=== PATIENT | male | born 1950 | race Caucasian/White ===

== ENCOUNTER → 2018-08-03 09:46 | Outpatient (POV) | payer OTHER, SELFPAY | PROVIDERS: Visit Provider Dermatology | DX: Z00.00 Encounter for general adult medical examination without abnormal findings (principal) ==

== ENCOUNTER → 2019-07-26 13:13 | Outpatient (POV) | payer OTHER, SELFPAY | PROVIDERS: Visit Provider Dermatology | DX: Z00.00 Encounter for general adult medical examination without abnormal findings (principal) ==

== ENCOUNTER → 2019-11-08 12:54 | Outpatient (POV) | payer OTHER, SELFPAY | PROVIDERS: PCP Dermatology; Visit Provider Dermatology | DX: Z00.00 Encounter for general adult medical examination without abnormal findings (principal) ==

== ENCOUNTER → 2020-02-21 08:58 | Outpatient (POV) | payer OTHER, SELFPAY | PROVIDERS: PCP Internal Medicine; Visit Provider Physician Assistant | DX: Z00.00 Encounter for general adult medical examination without abnormal findings (principal) ==

== ENCOUNTER → 2020-05-22 09:03 | Outpatient (POV) | payer OTHER, SELFPAY | PROVIDERS: Visit Provider Dermatology | DX: Z00.00 Encounter for general adult medical examination without abnormal findings (principal) ==

== ENCOUNTER → 2020-08-14 09:01 | Outpatient (POV) | payer OTHER, SELFPAY | PROVIDERS: Visit Provider Dermatology | DX: Z00.00 Encounter for general adult medical examination without abnormal findings (principal) ==

== ENCOUNTER → 2020-11-27 08:48 | Outpatient (POV) | payer OTHER, SELFPAY | PROVIDERS: Visit Provider Dermatology | DX: Z00.00 Encounter for general adult medical examination without abnormal findings (principal) ==

== ENCOUNTER → 2020-12-25 14:13 | Outpatient (POV) | payer OTHER, SELFPAY | PROVIDERS: Visit Provider Dermatology | DX: Z00.00 Encounter for general adult medical examination without abnormal findings (principal) ==

== ENCOUNTER → 2021-04-02 11:27 | Outpatient (POV) | payer OTHER, SELFPAY | PROVIDERS: Visit Provider Dermatology | DX: Z00.00 Encounter for general adult medical examination without abnormal findings (principal) ==

== ENCOUNTER → 2021-09-17 11:25 | Outpatient (POV) | payer OTHER, SELFPAY | PROVIDERS: Visit Provider Dermatology | DX: Z00.00 Encounter for general adult medical examination without abnormal findings (principal) ==

== ENCOUNTER → 2022-04-01 09:09 | Outpatient (POV) | payer OTHER, SELFPAY | PROVIDERS: Visit Provider Dermatology | DX: Z00.00 Encounter for general adult medical examination without abnormal findings (principal) ==

== ENCOUNTER → 2022-09-09 08:41 | Outpatient (POV) | payer OTHER, SELFPAY | PROVIDERS: Visit Provider Dermatology | DX: Z00.00 Encounter for general adult medical examination without abnormal findings (principal) ==

== ENCOUNTER → 2023-06-23 13:58 | Outpatient (POV) | payer OTHER, SELFPAY | PROVIDERS: Visit Provider Dermatology | DX: Z00.00 Encounter for general adult medical examination without abnormal findings (principal) ==

== ENCOUNTER 2024-07-26 09:50 | Outpatient (POV) | payer OTHER, SELFPAY ==
--- OUTSIDE RECORDS SUMMARY | 2024-07-27 06:49 | XMS_ITS | Clinical Summary ---
Author Organization [facility] Address [address] [place] [address] Care Team Providers Care Char Filter Operator Helper Name Role Phone Manjit Gorman MD Primary Care Provider [phone] Allergies No known active allergies Medications multivitamin with minerals tablet tablet Take 1 tablet by mouth Daily. Active tadalafil (CIALIS) 5 MG tablet TAKE 1 OR 2 TABLETS BY MOUTH DAILY NEEDED FOR ED 04/15/2022 Active BLACK ELDERBERRY PO Take 1 tablet by mouth Every Night. Active amLODIPine-fannie zepril (LOTREL 2.5-10) 2.5-10 MG per capsule Take 1 capsule by mouth Daily. 90 capsule 2 04/06/2024 Active Active Problems Problem Noted Date Diagnosed Date Encounter for general adult medical examination with abnormal findings 02/26/2024 Assessment & Plan (02/26/2024 11:13 AM EDT): Healthy 73-year-old male presenting for yearly complete physical and Medicare wellness visit, health issues being addressed as detailed below, health maintenance includes colonoscopy up-to-date from 03/2017 with 10-year follow-up recommended, vaccinations recommend update including COVID-19 which she will obtain through pharmacy and Tdap which she declines given lack of Medicare coverage, lab testing recently obtained through [facility] including a TSH CBC CMP all of which were unremarkable, they recently obtained through urology and satisfactory, will supplement with lipid profile hemoglobin A1c vitamin D urinalysis and urine microalbumin, EKG stable today. Dyslipidemia 02/26/2024 Assessment & Plan (02/26/2024 11:10 AM EDT): Update lipid profile. Currently not on any cholesterol medication. Primary osteoarthritis involving multiple joints 02/26/2024 Assessment & Plan (02/26/2024 11:16 AM EDT): Spine from cervical through lumbar region, asymptomatic, recent neck CT monitoring his oropharyngeal cancer did not reveal several facet joints which have fused with extensive degenerative changes, consideration of physical therapy though in truth would not likely be beneficial. He will work on home stretching exercises himself. Subclinical hypothyroidism 02/26/2024 Overview (02/26/2024): TSH mildly elevated at 4.4 through [facility] in 02/2024 Assessment & Plan (02/26/2024 11:12 AM EDT): TSH noted to be mildly elevated at 4.4 obtained through [facility] earlier this month in 02/2024. Getting regular TSH monitoring, potentially due to history of radiation therapy from his oropharyngeal cancer. Monitor closely through [facility]. Not being repeated today given recent testing as noted. Meralgia paresthetica of right side 02/26/2024 Assessment & Plan (02/26/2024 11:17 AM EDT): Noted on his right thigh. Discussed pathophysiology of this disorder. Given does not cause pain or functional limitation, observation is recommended. Pain of left thigh 02/26/2024 Assessment & Plan (02/26/2024 11:17 AM EDT): Met nonspecific pain in the left lateral thigh present by history for several months more with initial weightbearing, not reproducible today in the office either by palpation or range of motion testing of his leg and having a negative straight leg raise testing. Uncertain specific etiology, possibly muscular strain versus radiculopathy from the lower spine. Recommended observation for now unless becomes more problematic. Tick bite of lower back 02/26/2024 Assessment & Plan (02/26/2024 11:20 AM EDT): History of a tick bite last week, tick removed with tweezers, duration of attachment uncertain, asymptomatic other than the small scabbing lesion. Recommend simply observation at this time monitoring for any development of typical erythema margin on rash, tenderness, fever spikes arthralgias etc. Paresthesia and pain of right extremity 08/10/20 Vitamin D deficiency 02/20/2023 Mixed conductive and sensori neural hearing loss of both ears 12/25/2022 Assessment & Plan (02/26/2024 11:10 AM EDT): Utilizing hearing aids. Has ongoing ENT evaluation more targeting his history of oropharyngeal/base of tongue cancer. 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 Gets regular follow-up with oncology, radiation therapy and ENT currently every [address] scanning most recently satisfactory earlier this month. No major side effects noted at this time. 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 Observation recommended. 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 Continue current regimen with monitoring. Patient did have a recent CMP obtained through [facility] that was unremarkable thus will not be repeated today. Lipoma 04/15/2022 Overview (04/15/2022): BENIGN;RIGHT ANTERIOR SUPERIOR ILIAC SPINE Macular pucker 04/15/2022 Male erectile dysfunction, unspecified 2 Nodular prostate without lower urinary tract sym ptoms 04/15/2022 Onychomycosis 04/15/2022 Other decreased white blood cell count 2 Other idiopathic scoliosis, thoracic region 05/2022 Prediabetes 04/15/2022 Overview (02/26/2024): Most recent hemoglobin A1c normal at 5.4% in 02/2023 Assessment & Plan (02/26/2024 11:10 AM EDT): Most recent hemoglobin A1c normal at 5.4% in 02/2023. Update testing. Pursue healthy lifestyle. Kyphoscoliosis 04/15/2022 Assessment & Plan (02/26/2024 11:16 AM EDT): Clinically stable for many years, asymptomatic, did suggest potential of physical therapy which is not likely to alter his course. Observation recommended. Skin cancer 04/15/2022 Prostate cancer Cancer Staging:Clinical stage from 07/01/2021:Stage IIB(cT2a, cN0, cM0, PSA: 4, Grade Group: 2) - Signed by Jann Callejas MD on 09/18/2021 Assessment & Plan (02/26/2024 11:14 AM EDT): History of prostate cancer status post CyberKnife therapy in [address] Mina transitioning to PA in same office given Dr. Mina reportedly leaving for different location. Most recent PSA reported by patient to be decreased to 0.8 getting every 4 month evaluations. 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 Toure Other male erectile dysfunction 04/15/2022 02/20/2023 Immunizations Name Administration Dates Next Due Arexvy (RSV, Adults 60+ yrs) 07/17/2023 COVID-19 (MODERNA) Monovalen t Original Booster 12/09/2021 COVID-19 (MODERNA) ORIGINAL MONOVALENT PED 12/09/2021 COVID-19 (PFIZER) Purple Cap Monovalent 06/06/2021,11/03/2020,10/13/2020 COVID-19 (UNSPECIFIED) 12/09/2021 Fluzone >6mos 07/02/2015,06/15/2012 Fluzone High-Dose 65+YRS 07/26/2019,05/04/2018,1 09/07/2016 Fluzone High-Dose 65+yrs 06/10/2023,06/07,06/06/2021,05/18,07/26/2019,05/04/2018,07/08/2017 Influenza Seasonal Injectable 07/14/2011 Pneumococcal Conjugate 13-Va lent (PCV13) 01/27/2019 Pneumococcal Polysaccharide (PPSV23) 01/31/2020 Shingrix 11/09/2023,08/04/2023 Family History Medical History Relation Name Comments No Known Problems Brother No Known Problems Daughter 1 No Known Problems Daughter 2 Diabetes Father Heart disease Father PACEMAKER Sleep apnea Father Dementia Mother Heart disease Mother PACEMAKER Hip fracture Mother No Known Problems Son Relation Name Status Comments Brother Daughter 1 Daughter 2 Father (Age 95) Mother (Age 85) Son Social History Tobacco Use Types Packs/Day Years Used Date Smoking Tobacco: Never Smokeless Tobacco: Never Tobacco Cessation:Counseling Given: Not Answered Alcohol Use Standard Drinks/Week Comments Yes 1 (1 standard drink = 0.6 oz pure alcohol) 7-10 BEERS OVER THE COURSE OF A WEEK PHQ-2 Answer Date Recorded Retired PHQ-9: Brief Depression Severity Measure Score 0 02/20/2023 Abuse Screen Answer Date Recorded Unsafe at Home or Work/School Not on file Feels Threatened by Someone? Not on file 05/2023 Does Anyone Keep You from Co ntacting Others or Doint Things Outside the Home? Not on file 06/15/2023 Physical Sign of Abuse Present Not on file 1 Housing Stability Answer Date Recorded Current Living Arrangements Not on file 05/2023 Potentially Unsafe Housing Conditions Not on janet e 06/15/2023 Family and Community Support Answer Refugio e Recorded Help with Day-to-Day Activities Not on file 06/15/2023 Lonely or Isolated Not on file 06/15/2023 Employment Answer Date Recorded Do you want help finding or keeping work or a amanda b? Not on file 06/15/2023 Disabilities Answer Date Recorded Concentrating, Remembering, or Making Decisions Difficulty Not on file 06/15/2023 Doing Errands Independently Difficulty Not on fi le 06/15/2023 Education Answer Date Recorded Help with school or training? Not on file Preferred Language Not on file 06/15/2023 PHQ-2 Answer Date Recorded Retired PHQ-9: Brief Depression Severity Measure Score 0 02/26/2024 Sex and Gender Information Value Date Recorded Sex Assigned at Not on file Legal Sex Male 4:13 PM EST Gender Identity Not on file Sexual Orientation Not on file Last Filed Vital Signs Vital Sign Reading Time Taken Comments Blood Pressure 124/76 02/26/2024 8:57 AM EDT Pulse 84 02/26/2024 8:57 AM EDT Temperature 36.7 ??C (98.1 ??F) 02/26/2024 8:57 AM ED T Respiratory Rate 18 08/10/2023 8:42 AM EST Oxygen Saturation 98% 02/26/2024 8:57 AM EDT Inhaled Oxygen Concentration - - Weight 79.2 kg (174 lb 9.6 oz) 02/26/2024 8:57 A M EDT Height 182.9 cm (6') 02/26/2024 8:57 AM EDT Body Mass Index 23.68 02/26/2024 8:57 AM EDT Plan of Treatment Upcoming Encounters Date Type Department Care Team (Late st Contact Info) Description 08/22/2024 8:30 AM EST Office Visit [facility] [address] [place] [address] [place] [phone] Manjit Gorman MD [address] [place] [address] [place] [phone] 02/27/2025 9:00 AM EDT Office Visit [address] [place] [phone] Manjit Gorman MD [address] [place] [address] [place] [phone] Health Maintenance Due Date Last Done Comments COLOGUARD 1950 COLON CANCER SCREENING 5 YEA R SIGMOIDOSCOPY [address] COLONOGRAPHY 1950 FECAL OCCULT BLOOD TEST 1950 FIT Testing (1 year) 1950 TDAP/TD VACCINES (1 - Tdap) 1969 INFLUENZA VACCINE 04/07/2024 06/10/2023, , 06/06/2021, Additional history exists COVID-19 Vaccine (2023-10 5 season) 2024 06/22/2023, 06/18/2022, 12/09/2021, Additional history exists ANNUAL WELLNESS VISIT 02/25/2025 02/26/2024 , 02/26/2024, 02/20/2023, Additional history exists COLONOSCOPY 03/20/2027 03/20/2017, 03/20/2017 COLORECTAL CANCER SCREENING 03/20/2027 Pneumococcal Vaccine 65+ Completed 01/31/2020, 01/06 HEPATITIS C SCREENING Completed 02/20/2023, 023 ZOSTER VACCINE Completed 11/09/2023, 08/04/2023 Procedures Procedure Name Priority Date/Time Associated Diagnosis Comments HEPATITIS C ANTIBODY Routine 02/20/2023 10:01 AM EDT Encounter for general adult medical examination with abnormal findings Need for hepatitis C screening test COLONOSCOPY Routine 03/20/2017 from Last 3 Months or Most Recently Relevant to Health Maintenance Results * Hepatitis C Antibody (02/20/2023 10:01 AM EDT) Hep C Virus Ab Non Reactive Non Reactive [facility] Comment: HCV antibody alone does not differentiate between previously resolved infection and active infection. Equivocal and Reactive HCV antibody results should be followed up with an HCV RNA test to support the diagnosis of active HCV infection. Blood Structure of right upper limb / Unknown 02/20/2023 10:01 AM EDT 02/21/2023 Comment:Blood Release to [facility] Narrative [facility] - 02/21/2023 11:07 AM EDT Performed at: ??01 - [facility] [address] [place] [address] ??[id number] Agronomy Technician: Toby Rosario PhD, Phone: ??[phone] Manjit Gorman MD LAB BLOOD ORDERABLES Final Res ult [facility] [address] [place] [address], [facility] [address] [place] [address], * Colonoscopy (03/20/2017) [facility] SURGICAL HISTORY PROCEDURES F inal Result from Last 3 Months or Most Recently Relevant to Health Maintenance Insurance [employer] Care Teams Char Filter Operator Helper Relationship Specialty Start Date End Date Manjit Gorman MD [address] [address] PCP - General Internal Medicine 09/18/21
--- OUTSIDE RECORDS SUMMARY | 2024-07-27 06:49 | XMS_ITS ---
Author Organization [facility] Address [address] [place] [address] Care Team Providers Care Solar Fabrication Technician Name Role Phone Manjit Gorman MD Primary Care Provider [phone] Active Problems Problem Noted Date Diagnosed Date [...] Paresthesia and pain of right extremity 08/10/20 23 Vitamin D deficiency 02/20/2023 Mixed conductive and [...] to 0.8 getting every 4 month evaluations. Current Oncology Plans No current plan information found. Past Plans No past plan information found. Radiation Treatments * No radiation treatments are documented for this patient in [facility]. Treatments may have been administered in another system. Treatment Summaries Prostate cancer* Images from the original note were not included. Prostate Cancer Survivorship Plan General Information Patient name Erick Sierra Date of 1950 Phone Email [email or web address] Cancer Treatment Team Patient Care Team: Barry Mina MD as Referring Physician (Urology) Jann Callejas MD as Consulting Physician (Radiation Oncology) Provider Phone numbers Care Team Provider: Barry Mina MD, ([phone]) Care Team Provider: Jann Callejas MD, ([phone]) Care Team Provider: Perry Murillo MD, ([phone]) Care Team Provider: Yari Campbell MD, ([phone]) Post Treatment Care Team Primary Care Physician Manjit Gorman MD [phone] [place] [address] [place] [address] Background Information Medical history Past Medical History: Hypertension Prostate cancer (HCC) Skin cancer Surgical history Past Surgical History: COLONOSCOPY good x 10years PROSTATE BIOPSY PROSTATE FIDUCIAL MARKER PLACEMENT TONSILLECTOMY VASECTOMY Tobacco use Social History Tobacco Use Smoking Status Never Smoker Smokeless Tobacco Never Used Family oncology history Cancer-related family history is not on file. Oncology Information Oncology/Hematology History Prostate cancer (HCC) 07/01/2021 Cancer Staged Staging form: Prostate, AJCC 8th Edition - Clinical stage from 07/01/2021: Stage IIB (cT2a, cN0, cM0, PSA: 4, Grade Group: 2) - Signed by Jann Callejas MD on 09/18/2021 09/18/2021 Initial Diagnosis Prostate cancer (HCC) 12/11/2021 - 12/17/2021 Radiation Radiation OncologyTreatment Course: Erick Sierra received 3500 cGy in 5 fractions to prostate andseminal vesicles via Stereotactic Radiation Therapy - SRT. Complications during Therapy: No concerns stated Modification to Treatment Plan: No Modifications Lifetime Dose Tracking No doses have been documented on this patient for the following tracked chemicals: Doxorubicin, Epirubicin, Idarubicin, Daunorubicin, Mitoxantrone, Bleomycin, Mitomycin, Doxorubicin Liposomal [Could not find a treatment plan. This SmartLink may be configured incorrectly. Contact a ict systems test engineer for help.] Persistent Treatment-Associated Adverse Effects at Completion of Therapy It is important to recognize that not every person experiences the following adverse events after treatment. You may not have any of these issues, a few or many adverse effects. Experiences are highly variable. Please discuss any adverse effects of cancer treatment with your cancer care team. After Surgical Therapy No Surgery Performed After Chemotherapy N/A After Radiation Therapy After External Beam Radiation Therapy or Cyberknife Radiation therapy can cause early and late side effects. Early side effects are those that happen during or shortly after treatment and are usually gone within a few weeks after treatment ends. Late side effects may take months or years to develop. The most common early side effects are fatigue (feeling tired) and skin changes. Other early side effects are usually related to the area being treated. If you continue to have some skin problems after treatment ends, be gentle with the skin in the treatment area until all signs of irritation are gone and continue to care for your skin as your doctors and nurses have advised. If you continue to have fatigue, you may need to plan your activities to maximize energy, get extra rest while your bodyis still recovering and follow other instructions from your doctors and nurses such as exercise andactivity. long-term effects of radiation therapy vary greatly depending on the areas included in the field ofradiation and the radiation techniques that were used. Normal tissue in the body that is close to the prostate such as the bowel, rectum and bladder may be exposed to some radiation during treatment. Exposure of the bowel to radiation may result in bowel changes such as diarrhea or frequent loose stools. Ulceration and bleeding may also occur. Any bright red blood or black, tarry stools or abnormal passage of stool should be reported to your doctor. Stay hydrated by drinking water and fluids with electrolytes. Chronic diarrhea may put you at risk for weight loss and malnutrition. Talk to yourdoctor or nurse - there may medications and special instructions that can help. There are also other specialists like gastroenterologists and dietitians who can help. If the lymph nodes were in the radiation field, there may be an increased risk of developing lymphedema. Lymphedema is a condition in which fluid collects and may cause swelling. Exposure of the bladder to radiation may result in bladder scarring and may increase the risk of urinary tract infections. Blood in the urine or signs of urinary tract infections such as pain in the bladder, groin, lower abdomen or lower back, frequent urination, bladder spasm, cloudy, dark and/or foul-smelling urine, frequent urge to urinate and fever should be reported to your doctor. Radiation to the pelvis may cause erectile dysfunction (inability to get and keep an erection firm enough for sexual penetration). If there was erectile dysfunction before treatment and if there are other risk factors for erectile dysfunction (such as advanced age), the risk may be higher. Each man???s situation is different. Medications to treat erectile dysfunction may be given. There are also other treatments and devices that can help. Having trouble with erections is a very personal concern. It???s important to communicate with your partner and to talk with your doctor or nurse about it. Treatments and referrals to other specialists may help. In rare cases, radiation therapy can increase the risk of a second cancer. Other N/A Care of your Venous Access Device No Venous Access Device currently in place General After Cancer Treatment It is not uncommon for cancer to impact other areas of your life such as relationships, work and mental health. If you develop financial concerns, resources are sometimes available to assist in theseareas. Depression and anxiety can present either during or after cancer diagnosis and treatment. Itis important to discuss with your physician any of these concerns so these resources can be made available to you. General Cancer Support & Resources [facility] [address], [address] [place] [address] Med Onc: Plant Pathologist Onc: [employer] Identity Management Consultant: Mirna Sharpe - Psychiatric Nurse Practitioner: Perlita Cabrera APRN - Kick It! (A free smoking cessation program) Financial Counselor and Contact Information: [facility] Financial Counseling [phone] Staff Software Engineer Contact Information: Andreina Umanzor - Local Cancer Support Group and Contact Information: Estefania Coffman: This support group is open to anyone that has been diagnosed with cancer of any type. Meets at 6:30pm on the last Thursday of each month. Location: [facility]; [address] [place] [address]. For more information call Laura Marie @ . Prostate Cancer Support & Resources Local Resources Us [facility] Prostate Support Group: The mission of TOO is to provide hope and improve the lives of of those affected by prostate cancer through support, education, and advocacy/ awareness. The group meets the of each month at 6:30 p.m. [address] [facility] [place], [place] [id number] Surveillance How Frequent? Medical Oncology visits 1 month, 6 months later, 1 year later (Dr. Callejas) Lab tests PSA 3 months after CyberKnife completion, then every 6 months until PSA jolene (PSA <0.5), then every 6-12 months (Dr. Mina) Imaging exams As clinically indicated Immunizations Influenza Herpes Zoster Pneumococcal Yearly Once As appropriate Tobacco Cessation The patient is not currently a tobacco user. Counseling given: Not Answered Monitor for ongoing toxicities: None Specified Call your doctor if you have any of these signs or symptoms New or worsening symptoms. Pain that is new, unrelieved or bothersome. Difficulty with your emotions, anxiety, and/or depression. Physical problems that affect your abilities in your daily life or those that are bothersome (for example, continued fatigue, trouble sleeping, sexual problems, or edema). Referrals provided There are no referral needs at this time. Self Care Plan Self Care Plan: What You Can Do to Stay Healthy after Treatment for Cancer Cancer treatments may increase your chance of developing other health problems years after you havecompleted treatment. The purpose of this self care plan is to inform you about what steps you can take to maintain good health after cancer treatment. Keep in mind that every person treated for cancer is different and that these recommendations are not intended to be a substitute for the advice of a doctor or other health childcare provider. Please use these recommendations to talk with your health care provider about an appropriate follow up care plan for you. Surveillance for Your Cancer Recommendation Frequency Comments Cancer surveillance visit with medical provider that is focused on detecting signs of recurrence ofyour cancer. For additional information, visit www.livestrong.org or www.cancer.net/patient/Survivorship Frequency depends on type and stage of cancer you had. (If you had a higher risk cancer, you may be seen more often). Your doctor has provided you with a personalized cancer treatment summary and survivorship care plan. If you need another copy, ask your doctor. General Cancer Screening for Men Cancer screening tests are designed to find cancer or pre-cancerous areas before there are any symptoms and, generally, when treatments are most successful. Various organizations have developed guidelines for cancer screening for men. While these guidelines vary slightly between different organizations, they cover the same basic screening tests for prostate and colorectal cancers. In addition, during routine health examinations (at any age) your health care provider may also evaluate for cancers of the skin, mouth and thyroid. Not all screening tests are right for everyone. Your personal and family cancer history, and/or the presence of a known genetic predisposition, can affect which tests are right for you, and at what age you begin them. Therefore, you should discuss these with your health care provider. Your care plan will also include a section on follow up care foryour type of cancer, and these recommendations override the general screening recommendations for that particular type of cancer in the general population. The [place] [employer] (ACS) recommends these screening guidelines for men: Recommendation Frequency Comments Colon and Rectal Cancer Screening For more information see the ACS document Colorectal Cancer: Early Detection. www.cancer.org/ssLINK/cilkarmbpa-uhtnfu-rqhvh-detection-hugo Options for colon cancer screening can be divided into those that screen for both cancer and polyps, and those that just screen for cancer.Screening should begin at age 45 (unless you are considered high risk (see comments), using one of the following testing schedules: Tests that find polyps and cancer (Preferred over those that find cancer alone. If any of these tests are positive, a colonoscopy should be done.) Flexible sigmoidoscopy every five years, or Colonoscopy every 10 years, or Double-contrast barium enema every five years, or CT colonography (virtual colonoscopy) every five years Tests that primarily test for cancer Yearly fecal occult blood test (FOBT)*, or Yearly fecal immunochemical test (FIT) *, or Stool DNA test (sDNA), interval uncertain* * The multiple stool take-home test should be used. One test done by the doctor in the office is not adequate. A colonoscopy should be done if the test is positive. Talk with your doctor about your medical history, and what colorectal cancer screening test and schedule is best for you. Individuals at higher risk of colon cancer should have screening earlier and potentially more frequently. Those at higher risk of colon and rectal cancer: Individuals with a family history of colon or rectal cancer in a relative who was diagnosed before the age of 60 Individuals with a history of polyps Individuals with inflammatory bowel disease (Crohn's disease or ulcerative colitis) Individuals with a genetic predisposition to colon or rectal cancer, such as hereditary non-polyposis colon cancer (HNPCC) syndrome or familial adenomatous polyposis (FAP) syndrome Prostate Cancer Screening For more information, see the ACS Document Prostate Cancer Prevention and Early Detection: http://www.cancer.org/cancer/prostatecancer/moreinformation/prostatecancerearlyd etection/index Starting at age 50 (unless you are considered high risk ), men should talk to their doctor about the pros and cons of prostate cancer testing, and then decide if they want to be tested. Tests that can be used to detect for prostate cancer include Prostate-specific antigen (PSA) or digital rectal exam (IZA). ndividuals are considered higher risk if they are and/or have a family history of prostate cancer. Those who are considered high risk should have this talk at age 40 or 45. Testicular Screening For more information, see the ACS Document Testicular Cancer Detection: http://www.cancer.org/cancer/testicularcancer/detailedguide/lbqhpmnowh-nsmgdf-di tection Men of any age can develop testicular cancer; however, about half of all cases occur in men between the ages of20 and 34. A testicular self- exam is recommended monthly after a man has gone through puberty. In doing so, akhil should look and feel for any hard lumps, rounded bumps, or any change in the size, shape, or consistency of his testicles. If something appears abnormal, see a health care provider for further evaluation. Sun Exposure and Skin Cancer Risk Skin cancer is the most commonly diagnosed type of cancer, and rates are on the rise. However, thisis one cancer that in most cases can be prevented or detected early. While you may hear that you need the sun to make vitamin D, in reality you only need a few minutes a day to do this. Exposure to ultraviolet (UV) rays, either by natural sunlight or tanning beds, can lead to skin cancer. In additio n, UV rays lead to other forms of skin damage, including wrinkles, loss of skin elasticity, dark patches (sometimes called age spots or liver spots), and pre- cancerous skin changes (such as dry, scaly, rough patches). Although dark- skinned people are less likely to develop skin cancer, they can anddo develop skin cancers, most often in areas that are not exposed to sun (on the soles of the feet,under nails, and genitals). You can do a lot to protect yourself from damaging UV rays and to detect skin cancer early. Start by practicing sun safety, including using a broad spectrum sunscreen (which protects against UVA and UVB rays) with an SPF of at least 30 every day, avoiding peak sun times (10 a.m. to 4 p.m., when therays are strongest) and wearing protective clothing such as hats, sunglasses and long- sleeved shirts. Examine your skin regularly so you become familiar with any moles or birthmarks. If a mole has changed in any way, you should have a health care provider examine the area. This includes a change in size, shape or color; the development of scaliness, bleeding, oozing, itchiness or pain; or the development of a sore that will not heal. If you have a lot of moles, it may be helpful to make note of moles using photographs or a mole map . For a guide to performing a skin exam, visit www.skincarephysicians.com/skincancernet/skin_examinations.html. Healthy Lifestyle For some cancer survivors, the experience is the motivation to making healthy lifestyle changes. Itmay seem insignificant, but these changes have been shown to reduce the risk of the cancer coming back or a new cancer developing. Below are some tips on adopting a healthier lifestyle. Maintaining ahealthy weight is important in cancer prevention, as is physical activity and eating a healthy diet. Strive to incorporate all three pieces of the puzzle: healthy weight, balanced diet and regular exercise. Recommendation Goal Comments Maintain a healthy weight. For more information, visit http://www.nhlbi.nih.gov/health/public/heart/obesity/lose_wt/index.htm www.win.niddk.nih.gov Call the [place] [employer] Talk to your health care team about what a healthy weight is for you, and take stepsto reach and maintain that weight. For many people reaching their ideal weight can be a challenge; however, losing even 5 to 10 poundscan lower blood pressure, blood sugar and cholesterol levels. Weigh yourself weekly to monitor for weight gain/loss Being overweight can increase your chance of your cancer coming back. Maintaining a healthy weight, physical activity and eating a healthy diet are all important in cancer prevention. Being overweight can increase your chance of having high blood pressure, high blood sugar and/or high cholesterol, which can lead to heart disease, diabetes and stroke. If you would like more information about your blood sugar, cholesterol or blood pressure, talk with your primary care provider. Eat a healthy diet, mostly from plant sources. For more information, visit http://www.[employer].gov/food-groups/ Eat healthy, including plenty of fruits and vegetables daily. Drink more water, less soda and juice. Limit how much alcohol you drink (if you drink at all). Strive to have two- thirds of your plate be vegetables, fruits, whole grains and beans, while one- third or less should be an animal product. Choose fish and chicken and limit red meat and processed meats. Limit intake of alcohol to two drinks per day. Exercise. To learn more about recommendations for diet, activity and weight, visit AICR???s Guidelines for Survivors http://preventcancer.aicr.org/site/PageServer?pagename=patients_survivors_guidel ron ACS Eat Healthy and Get Active www.cancer.org/Healthy/EatHealthyGetActive/index Experts recommend at least 30 minutes of nrfdqknt-yv-ywqzkoqs activity per day, five days a week. Research shows that exercise can help you control your weight, improve your energy level, and help you sleep at night. The carroll is to find a physical activity you enjoy such as walking, dancing or gardening and do it regularly. If you have been inactivefor a while, start out slowly. You can start out by exercising 10 minutes a day several days a week. If you feel dizzy, short of breath, or have chest pain during exercise, stop exercising and talk with your primary care doctor. Do not use tobacco in any form. For more information, visit http://www.cdc.gov/tobacco/campaign/tips/ If you use tobacco, quit as soon as possible. Smoking is the most preventable cause of in the [place] If you would like more information, ask your doctor or you can call a national hotline at 3(228)-QUIT-NOW. Have regular check-ups by a healthcare professional. For more information about healthy screening tests for men visit the U.S. Department of Health and Human Services. http://www.womenshealth.gov/dyunalshj-mxnqh-zuq-vaccines/agzxjhmxn-dmcop-cqg-men / For more information about adult vaccinations visit the CDC: http://www.cdc.gov/vaccines/recs/schedules/adult-schedule.htm Keep up-to-date on general health screening tests, including cholesterol, blood pressure and glucose (blood sugar) levels. Get an annual influenza vaccine (flu shot). Get vaccinated with the pneumococcal vaccine, which prevents a type of pneumonia, and re-vaccinatedas determined by your health care team. Don???t forget dental and eye health! The [place] [employer] recommends adults have their eyes examined every two years until age 60, then annually. People who wear glasses or correctivelenses or are at high risk for eye problems (i.e., diabetics, family history of eye disease) shouldbe seen more frequently. The [place] [employer] recommends adults see their dentist at least once a year. No information on file. No information on file. 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 Toure Other male erectile dysfunction 04/15/2022 02/20/2023
--- OUTSIDE RECORDS SUMMARY | 2024-07-27 06:49 | XMS_ITS | Encounter Summary ---
Author Organization [facility] Address [address] [place] [id number] Care Team Providers Care Cooker Sulfite Name Role Phone Manjit Gorman MD Primary Care Provider [phone] Reason for Visit * Reason Comments Annual Exam Encounter Details Date Type Department Care Team (Late st Contact Info) Description 02/26/2024 9:00 AM EDT Office Visit [facility] [address] [place] [address] [place] [phone] Manjit Gorman MD [address] [place] [address] S[place] MARTINEZ [id number] Encounter for general adult medical examination with abnormal findings (Primary Dx); Prediabetes; Primary hypertension; Dyslipidemia; Subclinical hypothyroidism; Vitamin D deficiency; Mixed conductive and sensorineural hearing loss of both ears; Prostate cancer; Cancer of base of tongue; Benign lipomatous neoplasm of skin and subcutaneous tissue of trunk; Primary osteoarthritis involving multiple joints; Kyphoscoliosis; Pain of left thigh; Meralgia paresthetica of right side; Tick bite of lower back, initial encounter Social History Tobacco Use Types Packs/Day Years [...] on file Sexual Orientation Not on file documented as of this encounter Last Filed Vital Signs Vital Sign Reading Time Taken Comments Blood Pressure 124/76 02/26/2024 8:57 AM EDT Pulse 84 02/26/2024 8:57 AM EDT Temperature 36.7 ??C (98.1 ??F) 02/26/2024 8:57 AM ED T Respiratory Rate - - Oxygen Saturation 98% 02/26/2024 8:57 AM EDT Inhaled Oxygen Concentration - - Weight 79.2 kg (174 lb 9.6 oz) 02/26/2024 8:57 A M EDT Height 182.9 cm (6') 02/26/2024 8:57 AM EDT Body Mass Index 23.68 02/26/2024 8:57 AM EDT documented in this encounter Progress Notes * Manjit Gorman MD - 02/26/2024 11:20 AM EDTAssociated Problem(s): Tick bite of lower back History of a tick bite last week, tick removed with tweezers, duration of attachment uncertain, asymptomatic other than the small scabbing lesion. Recommend simply observation at this time monitoringfor any development of typical erythema margin on rash, tenderness, fever spikes arthralgias etc. * Manjit Gorman MD - 02/26/2024 11:17 AM EDTAssociated Problem(s): Meralgia paresthetica of right side Noted on his right thigh. Discussed pathophysiology of this disorder. Given does not cause pain or functional limitation, observation is recommended. * Manjit Gorman MD - 02/26/2024 11:17 AM EDTAssociated Problem(s): Pain of left thigh Met nonspecific pain in the left lateral thigh present by history for several months more with initial weightbearing, not reproducible today in the office either by palpation or range of motion testing of his leg and having a negative straight leg raise testing. Uncertain specific etiology, possibly muscular strain versus radiculopathy from the lower spine. Recommended observation for now unless becomes more problematic. * Manjit Gorman MD - 02/26/2024 11:16 AM EDTAssociated Problem(s): Primary osteoarthritis involving multiple joints Spine from cervical through lumbar region, asymptomatic, recent neck CT monitoring his oropharyngeal cancer did not reveal several facet joints which have fused with extensive degenerative changes, consideration of physical therapy though in truth would not likely be beneficial. He will work on home stretching exercises himself. * Manjit Gorman MD - 02/26/2024 11:16 AM EDTAssociated Problem(s): Kyphoscoliosis Clinically stable for many years, asymptomatic, did suggest potential of physical therapy which is not likely to alter his course. Observation recommended. 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 Gets regular follow-up with oncology, radiation therapy and ENT currently every [address] scanning most recently satisfactory earlier this month. No major side effects noted at this time. 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 Observation recommended. * Manjit Gorman MD - 02/26/2024 11:14 AM EDTAssociated Problem(s): Prostate cancer History of prostate cancer status post CyberKnife therapy in [address] Mina transitioning to PA in same office given Dr. Mina reportedly leaving for different location. Most recent PSA reported by patient to be decreased to 0.8 getting every 4 month evaluations. * Manjit Gorman MD - 02/26/2024 11:13 AM EDTAssociated Problem(s): Encounter for general adult medical examination with abnormal findings Healthy 73-year-old male presenting for yearly complete [...] and satisfactory, will supplement with lipid profile [id number] vitamin D urinalysis and urine microalbumin, EKG stable today. * Manjit Gorman MD - 02/26/2024 11:12 AM EDTAssociated Problem(s): Subclinical hypothyroidism TSH noted to be mildly elevated at 4.4 obtained through [facility] earlier this month in 02/2024. Getting regular TSH monitoring, potentially due to history of radiation therapy from his oropharyngeal cancer. Monitor closely through [facility]. Not being repeated today given recent testing as noted. * Manjit Gorman MD - 02/26/2024 11:10 AM EDTAssociated Problem(s): Prediabetes Most recent hemoglobin A1c normal at 5.4% in 02/2023. Update testing. Pursue healthy lifestyle. * Manjit Gorman MD - 02/26/2024 11:10 AM EDTAssociated Problem(s): Mixed conductive and sensorineural hearing loss of both ears Utilizing hearing aids. Has ongoing ENT evaluation more targeting his history of oropharyngeal/baseof tongue cancer. * Manjit Gorman MD - 02/26/2024 11:10 AM EDTAssociated Problem(s): Dyslipidemia Update lipid profile. Currently not on any cholesterol medication. * Manjit Gorman MD - 02/26/2024 11:09 AM EDTAssociated Problem(s): Hypertension Very satisfactory blood pressure control acutely as well as chronically taking amlodipine/benazepril 2.5/10 mg daily. Continue current regimen with monitoring. Patient did have a recent CMP obtained through [facility] that was unremarkable thus will not be repeated today. * Manjit Gorman MD - 02/26/2024 9:00 AM EDTAssociated Order(s): ECG 12 Lead Pre-Procedure Diagnose(s): Primary hypertension Post-Procedure Diagnose(s): Primary hypertension Images from the original note were not included. The ABCs of the Annual Wellness Visit Subsequent Medicare Wellness Visit Subjective Erick Sierra is a 73 y.o. male who presents for a Subsequent Medicare Wellness Visit. The following portions of the patient's history were reviewed and updated as appropriate: allergies, current medications, past family history, past medical history, past social history, past surgical history, and problem list. Compared to one year ago, the patient feels his physical health is better. Compared to one year ago, the patient feels his mental health is better. Recent Hospitalizations: He was not admitted to the hospital during the last year. Current Medical Providers: Patient Care Team: Manjit Gorman MD as PCP - General (Internal Medicine) Barry Mina MD as Referring Physician (Urology) Jann Callejas MD as Consulting Physician (Radiation Oncology) Perry Murillo MD (Gastroenterology) Yari Campbell MD (Dermatology) Liumdila Salinas MD as Emergency Attending (Otolaryngology) Outpatient Medications Prior to Visit Medication Sig Dispense Refill amLODIPine-benazepril (LOTREL 2.5-10) 2.5-10 MG per capsule Take 1 capsule by mouth Daily. BLACK ELDERBERRY PO Take 1 tablet by mouth Every Night. multivitamin with minerals tablet tablet Take 1 tablet by mouth Daily. tadalafil (CIALIS) 5 MG tablet TAKE 1 OR 2 TABLETS BY MOUTH DAILY NEEDED FOR ED acyclovir (ZOVIRAX) 800 MG tablet Take 1 tablet by mouth 2 (Two) Times a Day. (Patient not taking: Reported on 08/10/2023) amLODIPine-benazepril (LOTREL 2.5-10) 2.5-10 MG per capsule Take 1 capsule by mouth once daily 90 capsule 3 Shingrix 50 MCG/0.5ML reconstituted suspension Inject 0.5 mL into the appropriate muscle as directed by prescriber 1 (One) Time. (Patient not taking: Reported on 02/26/2024) No facility-administered medications prior to visit. No opioid medication identified on active medication list. I have reviewed chart for other potential high risk medication/s and harmful drug interactions in the elderly. Aspirin is not on active medication list. Aspirin use is not indicated based on review of current medical condition/s. Risk of harm outweighs potential benefits. . Patient Active Problem List Diagnosis Prostate cancer Allergic rhinitis due to pollen Benign lipomatous neoplasm of skin and subcutaneous tissue of trunk Benign prostatic hyperplasia with lower urinary tract symptoms Bilateral elbow fractures Cramp and spasm Dysplastic nevus Finger fracture, left Hypertension Lipoma Macular pucker Male erectile dysfunction, unspecified Nodular prostate without lower urinary tract symptoms Onychomycosis Other decreased white blood cell count Other idiopathic scoliosis, thoracic region Prediabetes Kyphoscoliosis Skin cancer Cancer of base of tongue CINV (chemotherapy-induced nausea and vomiting) Mixed conductive and sensorineural hearing loss of both ears Neoplasm related pain Second hand smoke exposure Vitamin D deficiency Paresthesia and pain of right extremity Encounter for general adult medical examination with abnormal findings Dyslipidemia Primary osteoarthritis involving multiple joints Subclinical hypothyroidism Meralgia paresthetica of right side Pain of left thigh Tick bite of lower back Advance Care Planning Advance Care Planning Advance Directive is not on file. ACP discussion was held with the patient during this visit. Patient has an advance directive (not in EMR), copy requested. Objective Vitals: 02/26/24 0857 BP: 124/76 BP Location: Left arm Patient Position: Sitting Cuff Size: Adult Pulse: 84 Temp: 98.1 ??F (36.7 ??C) TempSrc: Temporal SpO2: 98% Weight: 79.2 kg (174 lb 9.6 oz) Height: 182.9 cm (72 ) Estimated body mass index is 23.68 kg/m?? as calculated from the following: Height as of this encounter: 182.9 cm (72 ). Weight as of this encounter: 79.2 kg (174 lb 9.6 oz). BMI is within normal parameters. No other follow-up for BMI required. Does the patient have evidence of cognitive impairment? No HEALTH RISK ASSESSMENT Smoking Status: Social History Tobacco Use Smoking Status Never Smokeless Tobacco Never Alcohol Consumption: Social History Substance and Sexual Activity Alcohol Use Yes Alcohol/week: 1.0 standard drink of alcohol Types: 1 Cans of beer per week Comment: 7-10 BEERS OVER THE COURSE OF A WEEK Fall Risk Screen: JORGE Fall Risk Assessment was completed, and patient is at LOW risk for falls.Assessment completed on:02/26/2024 Depression Screenin02/26/2024 9:00 AM PHQ-2/PHQ-9 Depression Screening Little Interest or Pleasure in Doing Things 0-->not at all Feeling Down, Depressed or Hopeless 0-->not at all PHQ-9: Brief Depression Severity Measure Score 0 Health Habits and Functional and Cognitive Screenin02/26/2024 9:00 AM Functional & Cognitive Status Do you have difficulty preparing food and eating? No Do you have difficulty bathing yourself, getting dressed or grooming yourself? No Do you have difficulty using the toilet? No Do you have difficulty moving around from place to place? Yes Do you have trouble with steps or getting out of a bed or a chair? Yes Current Diet Well Balanced Diet Dental Exam Up to date Eye Exam Up to date Exercise (times per week) 7 times per week Current Exercises Include Walking;Yard Work;Gardening;Other Do you need help using the phone? No Are you deaf or do you have serious difficulty hearing? Yes Do you need help to go to places out of walking distance? No Do you need help shopping? No Do you need help preparing meals? No Do you need help with housework? No Do you need help with laundry? No Do you need help taking your medications? No Do you need help managing money? No Do you ever drive or ride in a car without wearing a seat belt? No Have you felt unusual stress, anger or loneliness in the last month? No Who do you live with? Spouse If you need help, do you have trouble finding someone available to you? No Have you been bothered in the last four weeks by sexual problems? No Do you have difficulty concentrating, remembering or making decisions? No Age-appropriate Screening Schedule: Refer to the list below for future screening recommendations based on patient's age, sex and/or medical conditions. Orders for these recommended tests are listed in the plan section. The patient has been provided with a written plan. Health Maintenance Topic Date Due TDAP/TD VACCINES (1 - Tdap) Never done COVID-19 Vaccine (8 - 2022-24 season) 2024 (Originally 08/17/2023) INFLUENZA VACCINE 04/07/2024 ANNUAL WELLNESS VISIT 02/25/2025 COLORECTAL CANCER SCREENING 03/20/2027 HEPATITIS C SCREENING Completed RSV Vaccine - Adults Completed Pneumococcal Vaccine 65+ Completed ZOSTER VACCINE Completed [facility] Preventative Services Quick Reference Risk Factors Identified During Encounter Chronic Pain: OTC analgesics as needed. Proper dosing schedule discussed. Hearing Problem: sees ENT regularly Immunizations Discussed/Encouraged: Tdap and COVID19 Dental Screening Recommended The above risks/problems have been discussed with the patient. Pertinent information has been shared with the patient in the After Visit Summary. An After Visit Summary and PPPS were made available to the patient. Follow Up: Next Medicare Wellness visit to be scheduled in 1 year. Additional E&M Note during same encounter follows: Patient has multiple medical problems which are significant and separately identifiable that require additional work above and beyond the Medicare Wellness Visit. Chief Complaint Annual Exam Subjective HPI Erick Sierra is also being seen today for complete physical and general health review. He describes several things he would like discussed. History of longstanding numbness without pain or weaknessover the anterior thigh tending towards the medial area, unrelated over several months having note of some left lateral sharp thigh pain specially when he first stands up and walks a few steps and then typically will resolve, no associated lower back pain, noted 1 time his leg gave out for steppingand almost fell over but then was perfectly fine afterwards. Also has chronic stiffness in his spine and his neck which has progressed over the years. Has had previous note of scoliosis. Suspect degen erative in nature. Really does not have a lot of associated pain. He also notes that there was a tick attached to his back last week, uncertain duration, having removed it with tweezers, no associated rash redness fevers chills arthralgias or other related complaints. Patient has a history of prostate cancer status post CyberKnife treatment in 2021 with routine PSAs checked most recently by his account decreased to 0.8 monitored every 4 months followed by urology, mild associate BPH symptoms primarily with nocturia, not lifestyle limiting, also history of oropharyngeal cancer the base ofhis tongue on the right status post chemoradiation therapy pleated in 12/2022, followed regularly byradiation oncology, oncology, and ENT. Most recent CT of soft tissue of the neck in 02/2024 revealing stable findings with no concern of recurrent disease, incidental note of extensive degenerative changes in his cervical spine with some fusion at several facet joints and reverse cervical lordosis. History of prediabetes with most recent hemoglobin A1c normalized at 5.4 in 02/2023, hypertension taking Lotrel 2.5/10 mg daily if blood pressures averaging 120s to 130s over 50s to 70s with pulse ratein the 60s to 80s, denying chest pains palpitations dyspnea dizziness or edema. Does have mild BP 8symptoms with nocturia, no dysuria hematuria, fairly good stream, ED for which he will use Cialis with good clinical effect. Had lost a lot of weight with his chemo radiation therapy for his oropharyngeal cancer, but has gained 7 pounds back in the last 6 months, chronically being very slender witha current BMI of 23.6. No other acute concerns. Health maintenance includes colonoscopy current from 03/2017 with a 10-year follow-up recommended, due for Tdap booster which he declines given lack of Medicare coverage, due for updated COVID-19 vaccine which he will proceed to outside the office. EKG today revealing stable IVCD with first-degree AV block, laboratory testing due to be updated including lipid profile hemoglobin A1c vitamin D urinalysis and a urine microalbumin noting he has recently had TSH obtained through oncology earlier thismonth that was slightly elevated, normal CBC and CMP, and gets regular PSA checks most recently 0.8within the last month. Objective Vital Signs: BP 124/76 (BP Location: Left arm, Patient Position: Sitting, Cuff Size: Adult) Pulse 84 Temp 98.1 ??F (36.7 ??C) (Temporal) Ht 182.9 cm (72 ) Wt 79.2 kg (174 lb 9.6 oz) SpO2 98% BMI 23.68kg/m?? Physical Exam Vitals and nursing note reviewed. Constitutional: General: He is not in acute distress. Appearance: Normal appearance. He is normal weight. He is not ill-appearing. Comments: Tall, slender with a BMI of 23.6 having a 7 pound weight gain in the last 6 months, no acute distress, alert and oriented, fluent speech, well-spoken HENT: Head: Normocephalic and atraumatic. Right Ear: Tympanic membrane, ear canal and external ear normal. Left Ear: Tympanic membrane, ear canal and external ear normal. Ears: Comments: Bilateral hearing aids in place which were removed during exam Nose: Nose normal. Mouth/Throat: Mouth: Mucous membranes are moist. Pharynx: Oropharynx is clear. Comments: No intraoral lesions or abnormalities noted other than, erosion, multiple teeth present with no overt decay appreciated Eyes: Extraocular Movements: Extraocular movements intact. Conjunctiva/sclera: Conjunctivae normal. Pupils: Pupils are equal, round, and reactive to light. Neck: Vascular: No carotid bruit. Comments: Significant decreased mobility of his neck in all directions with reverse lordosis, no palpable adenopathy masses or tenderness, no periclavicular or axillary or inguinal adenopathy Cardiovascular: Rate and Rhythm: Normal rate and regular rhythm. Pulses: Normal pulses. Heart sounds: Normal heart sounds. No murmur heard. No friction rub. No gallop. Comments: 2+ carotids without bruits, 2+ radial pulses, 2+ femoral pulses without bruits, 2+ bipedal pulses with good perfusion and no edema Pulmonary: Effort: Pulmonary effort is normal. No respiratory distress. Breath sounds: Normal breath sounds. Abdominal: General: Abdomen is flat. Bowel sounds are normal. There is no distension. Palpations: Abdomen is soft. There is no mass. Tenderness: There is no abdominal tenderness. There is no guarding or rebound. Hernia: No hernia is present. Genitourinary: Comments: and rectal exams deferred as routinely followed by urology. Musculoskeletal: General: Deformity present. No swelling, tenderness or signs of injury. Cervical back: Rigidity present. No tenderness. Right lower leg: No edema. Left lower leg: No edema. Comments: Significant rigidity with decreased range of motion of his neck to the spine, having noticed chronic kyphosis and dextroscoliosis with no pain, no inducible left thigh pain either with range of motion testing of his hip, palpation, and negative straight leg raise Lymphadenopathy: Cervical: No cervical adenopathy. Skin: General: Skin is warm and dry. Capillary Refill: Capillary refill takes less than 2 seconds. Findings: Lesion present. No rash. Comments: Chronic lipoma measuring 10 x 5 cm over the right ASIS/hip region, asymptomatic, possiblyslightly larger in size from 1 year prior but nonconcerning patient's back has multiple seborrheic keratoses benign in nature, single 7 mm diameter scabbing lesion with minimal surrounding erythema but no tenderness to discharge on the right mid thoracic back likely representing tick bite site. There is no concerning surrounding rash. Asymptomatic. Neurological: Mental Status: He is alert and oriented to person, place, and time. Mental status is at baseline. Cranial Nerves: No cranial nerve deficit. Sensory: Sensory deficit present. Motor: No weakness. Coordination: Coordination normal. Gait: Gait normal. Deep Tendon Reflexes: Reflexes normal. Comments: Chronically has some numbness and tingling over the right anterior thigh with some tendency towards the medial aspect, clinically stable Psychiatric: Mood and Affect: Mood normal. Behavior: Behavior normal. Thought Content: Thought content normal. Judgment: Judgment normal. ECG 12 Lead Date/Time: 02/26/2024 11:20 AM Performed by: Manjit Gorman MD Authorized by: Manjit Gorman MD Comparison: compared with previous ECG from 02/21/2024 Similar to previous ECG Comparison to previous ECG: Sinus rhythm rate 67, first-degree AV block, IVCD, no change versus prior EKG Assessment and Plan Diagnoses and all orders for this visit: 1. Encounter for general adult medical examination with abnormal findings (Primary) Assessment & Plan: Healthy 73-year-old male presenting for yearly complete [...] and satisfactory, will supplement with lipid profile [id number] vitamin D urinalysis and urine microalbumin, EKG stable today. Orders: - Vitamin D,25-Hydroxy; Future - Urinalysis With Culture If Indicated -; Future - MicroAlbumin, Urine, Random - Urine, Clean Catch; Future - Hemoglobin A1c; Future - Lipid Panel; Future - Lipid Panel - Hemoglobin A1c - MicroAlbumin, Urine, Random - Urine, Clean Catch - Urinalysis With Culture If Indicated - Urine, Clean Catch - Vitamin D,25-Hydroxy 2. Prediabetes Assessment & Plan: Most recent hemoglobin A1c normal at 5.4% in 02/2023. Update testing. Pursue healthy lifestyle. Orders: - Vitamin D,25-Hydroxy; Future - MicroAlbumin, Urine, Random - Urine, Clean Catch; Future - Hemoglobin A1c; Future - Hemoglobin A1c - MicroAlbumin, Urine, Random - Urine, Clean Catch - Vitamin D,25-Hydroxy 3. Primary hypertension Assessment & Plan: Very satisfactory blood pressure control acutely as well as chronically taking amlodipine/benazepril 2.5/10 mg daily. Continue current regimen with monitoring. Patient did have a recent CMP obtained through [facility] that was unremarkable thus will not be repeated today. Orders: - ECG 12 Lead - Urinalysis With Culture If Indicated -; Future - Urinalysis With Culture If Indicated - Urine, Clean Catch 4. Dyslipidemia Assessment & Plan: Update lipid profile. Currently not on any cholesterol medication. Orders: - Lipid Panel; Future - Lipid Panel 5. Subclinical hypothyroidism Assessment & Plan: TSH noted to be mildly elevated at 4.4 obtained through [facility] earlier this month in 02/2024. Getting regular TSH monitoring, potentially due to history of radiation therapy from his oropharyngeal cancer. Monitor closely through [facility]. Not being repeated today given recent testing as noted. 6. Vitamin D deficiency - Vitamin D,25-Hydroxy; Future - Vitamin D,25-Hydroxy 7. Mixed conductive and sensorineural hearing loss of both ears Assessment & Plan: Utilizing hearing aids. Has ongoing ENT evaluation more targeting his history of oropharyngeal/baseof tongue cancer. 8. Prostate cancer Assessment & Plan: History of prostate cancer status post CyberKnife therapy in [address] Mina transitioning to PA in same office given Dr. Mina reportedly leaving for different location. Most recent PSA reported by patient to be decreased to 0.8 getting every 4 month evaluations. 9. 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 Gets regular follow-up with oncology, radiation therapy and ENT currently every [address] scanning most recently satisfactory earlier this month. No major side effects noted at this time. 10. Benign lipomatous neoplasm of skin and subcutaneous tissue of trunk Assessment & Plan: Chronic lipomatous lesion on the right hip near the ASIS, possibly slightly enlarged from last yearbased upon measurements recorded but very stable for many years and asymptomatic. Observation recommended. 11. Primary osteoarthritis involving multiple joints Assessment & Plan: Spine from cervical through lumbar region, asymptomatic, recent neck CT monitoring his oropharyngeal cancer did not reveal several facet joints which have fused with extensive degenerative changes, consideration of physical therapy though in truth would not likely be beneficial. He will work on home stretching exercises himself. 12. Kyphoscoliosis Assessment & Plan: Clinically stable for many years, asymptomatic, did suggest potential of physical therapy which is not likely to alter his course. Observation recommended. 13. Pain of left thigh Assessment & Plan: Met nonspecific pain in the left lateral thigh present by history for several months more with initial weightbearing, not reproducible today in the office either by palpation or range of motion testing of his leg and having a negative straight leg raise testing. Uncertain specific etiology, possibly muscular strain versus radiculopathy from the lower spine. Recommended observation for now unless becomes more problematic. 14. Meralgia paresthetica of right side Assessment & Plan: Noted on his right thigh. Discussed pathophysiology of this disorder. Given does not cause pain or functional limitation, observation is recommended. 15. Tick bite of lower back, initial encounter Assessment & Plan: History of a tick bite last week, tick removed with tweezers, duration of attachment uncertain, asymptomatic other than the small scabbing lesion. Recommend simply observation at this time monitoringfor any development of typical erythema margin on rash, tenderness, fever spikes arthralgias etc. Follow Up Return in about 1 year (around 02/25/2025) for Medicare Subsq.. Patient was given instructions and counseling regarding his condition or for health maintenance advice. Please see specific information pulled into the AVS if appropriate. * Tamanna Hernández - 02/26/2024 9:00 AM EDT .. Venipuncture Blood Specimen Collection Venipuncture performed in right arm by Tamanna Hernández with good hemostasis. Patient tolerated theprocedure well without complications. 02/26/24 Tamanna Hernández documented in this encounter Plan of Treatment Upcoming Encounters Date Type Department Care Team (Late st Contact Info) Description 08/22/2024 8:30 AM EST Office Visit [facility] [address] [place] [address] [place] [id number] Manjit Gorman MD [address] [place] [address] [place] [id number] 02/27/2025 9:00 AM EDT Office Visit [facility] [address] [place] [id number] Manjit Gorman MD [address] [place] [address] [place] [id number] documented as of this encounter Procedures Procedure Name Priority Date/Time Associated Diagnosis Comments ECG 12-LEAD Routine 02/26/2024 11:20 AM EDT Primary hypertension ~MICROSCOPIC EXAMINATION Routine 02/26/2024 10:22 AM EDT URINALYSIS W/ CULTURE IF INDICATED Routine 02/26/2024 10:22 AM EDT Encounter for general adult medical examination with abnormal findings Primary hypertension MICROALBUMIN, URINE, RANDOM Routine 02/26/2024 10:22 AM EDT Encounter for general adult medical examination with abnormal findings Prediabetes VITAMIN D,25-HYDROXY Routine 02/26/2024 10:22 AM EDT Encounter for general adult medical examination with abnormal findings Prediabetes Vitamin D deficiency HEMOGLOBIN A1C Routine 02/26/2024 10:22 AM EDT Encounter for general adult medical examination with abnormal findings Prediabetes LIPID PANEL Routine 02/26/2024 10:22 AM EDT Encounter for general adult medical examination with abnormal findings Dyslipidemia documented in this encounter Results * ECG 12-LEAD (02/26/2024 11:20 AM EDT) Narrative [facility] ECG - 02/26/2024 11:20 AM EDT Manjit Gorman MD ? 02/26/2024 11:21 AM ECG 12 Lead Date/Time: 02/26/2024 11:20 AM Performed by: Manjit Gorman MD Authorized by: Manjit Gorman MD ??Comparison: compared with previous ECG from 02/21/2024 Similar to previous ECG Comparison to previous ECG: Sinus rhythm rate 67, first-degree AV block, IVCD, no change versus prior EKG Procedure Note Manjit Gorman MD - 02/26/2024 9:00 AM EDT Images from the original note were not included. The ABCs of the Annual Wellness Visit Subsequent Medicare Wellness Visit Subjective Erick Sierra is a 73 y.o. male who presents for a Subsequent MedicareWellness Visit. The following portions of the patient's history were reviewed and updated as appropriate: allergies, current medications, past familyhistory, past medical history, past social history, past surgical history,and problem list. Compared to one year ago, the patient feels his physical health is better. Compared to one year ago, the patient feels his mental health is better. Recent Hospitalizations: He was not admitted to the hospital during the last year. Current Medical Providers: Patient Care Team: Manjit Gorman MD as PCP - General (Internal Medicine) Barry Mina MD as Referring Physician (Urology) Jann Callejas MD as Consulting Physician (Radiation Oncology) Perry Murillo MD (Gastroenterology) Yari Campbell MD (Dermatology) Liudmila Salinsa MD as Emergency Attending (Otolaryngology) Outpatient Medications Prior to Visit Medication Sig Dispense Refill amLODIPine-benazepril (LOTREL 2.5-10) 2.5-10 MG per capsule Take 1capsule by mouth Daily. BLACK ELDERBERRY PO Take 1 tablet by mouth Every Night. multivitamin with minerals tablet tablet Take 1 tablet by mouth Daily. tadalafil (CIALIS) 5 MG tablet TAKE 1 OR 2 TABLETS BY MOUTH DAILY ASNEEDED FOR ED acyclovir (ZOVIRAX) 800 MG tablet Take 1 tablet by mouth 2 (Two) Times aDay. (Patient not taking: Reported on 08/10/2023) amLODIPine-benazepril (LOTREL 2.5-10) 2.5-10 MG per capsule Take 1capsule by mouth once daily 90 capsule 3 Shingrix 50 MCG/0.5ML reconstituted suspension Inject 0.5 mL into theappropriate muscle as directed by prescriber 1 (One) Time. (Patient nottaking: Reported on 02/26/2024) No facility-administered medications prior to visit. No opioid medication identified on active medication list. I have reviewedchart for other potential high risk medication/s and harmful druginteractions in the elderly. Aspirin is not on active medication list. Aspirin use is not indicatedbased on review of current medical condition/s. Risk of harm outweighspotential benefits. . Patient Active Problem List Diagnosis Prostate cancer Allergic rhinitis due to pollen Benign lipomatous neoplasm of skin and subcutaneous tissue of trunk Benign prostatic hyperplasia with lower urinary tract symptoms Bilateral elbow fractures Cramp and spasm Dysplastic nevus Finger fracture, left Hypertension Lipoma Macular pucker Male erectile dysfunction, unspecified Nodular prostate without lower urinary tract symptoms Onychomycosis Other decreased white blood cell count Other idiopathic scoliosis, thoracic region Prediabetes Kyphoscoliosis Skin cancer Cancer of base of tongue CINV (chemotherapy-induced nausea and vomiting) Mixed conductive and sensorineural hearing loss of both ears Neoplasm related pain Second hand smoke exposure Vitamin D deficiency Paresthesia and pain of right extremity Encounter for general adult medical examination with abnormal findings Dyslipidemia Primary osteoarthritis involving multiple joints Subclinical hypothyroidism Meralgia paresthetica of right side Pain of left thigh Tick bite of lower back Advance Care Planning Advance Care Planning Advance Directive is not on file. ACP discussion was held with thepatient during this visit. Patient has an advance directive (not in EMR),copy requested. Objective Vitals: 02/26/24 0857 BP: 124/76 BP Location: Left arm Patient Position: Sitting Cuff Size: Adult Pulse: 84 Temp: 98.1 ??F (36.7 ??C) TempSrc: Temporal SpO2: 98% Weight: 79.2 kg (174 lb 9.6 oz) Height: 182.9 cm (72 ) Estimated body mass index is 23.68 kg/m?? as calculated from thefollowing: Height as of this encounter: 182.9 cm (72 ). Weight as of this encounter: 79.2 kg (174 lb 9.6 oz). BMI is within normal parameters. No other follow-up for BMI required. Does the patient have evidence of cognitive impairment? No HEALTH RISK ASSESSMENT Smoking Status: Social History Tobacco Use Smoking Status Never Smokeless Tobacco Never Alcohol Consumption: Social History Substance and Sexual Activity Alcohol Use Yes Alcohol/week: 1.0 standard drink of alcohol Types: 1 Cans of beer per week Comment: 7-10 BEERS OVER THE COURSE OF A WEEK Fall Risk Screen: JORGE Fall Risk Assessment was completed, and patient is at LOW risk forfalls.Assessment completed on:02/26/2024 Depression Screenin02/26/2024 9:00 AM PHQ-2/PHQ-9 Depression Screening Little Interest or Pleasure in Doing Things 0-->not at all Feeling Down, Depressed or Hopeless 0-->not at all PHQ-9: Brief Depression Severity Measure Score 0 Health Habits and Functional and Cognitive Screenin02/26/2024 9:00 AM Functional & Cognitive Status Do you have difficulty preparing food and eating? No Do you have difficulty bathing yourself, getting dressed or groomingyourself? No Do you have difficulty using the toilet? No Do you have difficulty moving around from place to place? Yes Do you have trouble with steps or getting out of a bed or a chair? Yes Current Diet Well Balanced Diet Dental Exam Up to date Eye Exam Up to date Exercise (times per week) 7 times per week Current Exercises Include Walking;Yard Work;Gardening;Other Do you need help using the phone? No Are you deaf or do you have serious difficulty hearing? Yes Do you need help to go to places out of walking distance? No Do you need help shopping? No Do you need help preparing meals? No Do you need help with housework? No Do you need help with laundry? No Do you need help taking your medications? No Do you need help managing money? No Do you ever drive or ride in a car without wearing a seat belt? No Have you felt unusual stress, anger or loneliness in the last month? No Who do you live with? Spouse If you need help, do you have trouble finding someone available to you? No Have you been bothered in the last four weeks by sexual problems? No Do you have difficulty concentrating, remembering or making decisions? No Age-appropriate Screening Schedule: Refer to the list below for future screening recommendations based onpatient's age, sex and/or medical conditions. Orders for these recommendedtests are listed in the plan section. The patient has been provided with awritten plan. Health Maintenance Topic Date Due TDAP/TD VACCINES (1 - Tdap) Never done COVID-19 Vaccine (2022-24 season) 2024 (Originally 08/17/2023) INFLUENZA VACCINE 04/07/2024 ANNUAL WELLNESS VISIT 02/25/2025 COLORECTAL CANCER SCREENING 03/20/2027 HEPATITIS C SCREENING Completed RSV Vaccine - Adults Completed Pneumococcal Vaccine 65+ Completed ZOSTER VACCINE Completed [facility] Preventative Services Quick Reference Risk Factors Identified During Encounter Chronic Pain: OTC analgesics as needed. Proper dosing schedule discussed. Hearing Problem: sees ENT regularly Immunizations Discussed/Encouraged: Tdap and COVID19 Dental Screening Recommended The above risks/problems have been discussed with the patient. Pertinent information has been shared with the patient in the After VisitSummary. An After Visit Summary and PPPS were made available to the patient. Follow Up: Next Medicare Wellness visit to be scheduled in 1 year. Additional E&M Note during same encounter follows: Patient has multiple medical problems which are significant and separatelyidentifiable that require additional work [facility] and [facility] Chief Complaint Annual Exam Subjective HPI Erick Sierra is also being seen today for complete physical and generalhealth review. He describes several things he would like discussed.History of longstanding numbness without pain or weakness over theanterior thigh tending towards the medial area, unrelated over severalmonths having note of some left lateral sharp thigh pain specially when hefirst stands up and walks a few steps and then typically will resolve, noassociated lower back pain, noted 1 time his leg gave out for stepping andalmost fell over but then was perfectly fine afterwards. Also has chronicstiffness in his spine and his neck which has progressed over the years.Has had previous note of scoliosis. Suspect degenerative in nature.Really does not have a lot of associated pain. He also notes that therewas a tick attached to his back last week, uncertain duration, havingremoved it with tweezers, no associated rash redness fevers chillsarthralgias or other related complaints. Patient has a history ofprostate cancer status post CyberKnife treatment in 2021 with routine PSAschecked most recently by his account decreased to 0.8 monitored every 4months followed by urology, mild associate BPH symptoms primarily withnocturia, not lifestyle limiting, also history of oropharyngeal cancer thebase of his tongue on the right status post chemoradiation therapy pleatedin 12/2022, followed regularly by radiation oncology, oncology, and ENT.Most recent CT of soft tissue of the neck in 02/2024 revealing stablefindings with no concern of recurrent disease, incidental note ofextensive degenerative changes in his cervical spine with some fusion atseveral facet joints and reverse cervical lordosis. History ofprediabetes with most recent hemoglobin A1c normalized at 5.4 in 02/2023,hypertension taking Lotrel 2.5/10 mg daily if blood pressures [id number] to 130s over 50s to 70s with pulse rate in the 60s to 80s, denyingchest pains palpitations dyspnea dizziness or edema. Does have mild BP 8symptoms with nocturia, no dysuria hematuria, fairly good stream, ED forwhich he will use Cialis with good clinical effect. Had lost a lot ofweight with his chemo radiation therapy for his oropharyngeal cancer, buthas gained 7 pounds back in the last 6 months, chronically being veryslender with a current BMI of 23.6. No other acute concerns. Health maintenance includes colonoscopy current from 03/2017 with a [id number] recommended, due for Tdap booster which he declines given lackof Medicare coverage, due for updated COVID-19 vaccine which he willproceed to outside the office. EKG today revealing stable IVCD withfirst-degree AV block, laboratory testing due to be updated includinglipid profile hemoglobin A1c vitamin D urinalysis and a urine microalbuminnoting he has recently had TSH obtained through oncology earlier thismonth that was slightly elevated, normal CBC and CMP, and gets regular PSAchecks most recently 0.8 within the last month. Objective Vital Signs: BP 124/76 (BP Location: Left arm, Patient Position: Sitting, Cuff Size:Adult) Pulse 84 Temp 98.1 ??F (36.7 ??C) (Temporal) Ht 182.9 cm(72 ) Wt 79.2 kg (174 lb 9.6 oz) SpO2 98% BMI 23.68 kg/m?? Physical Exam Vitals and nursing note reviewed. Constitutional: General: He is not in acute distress. Appearance: Normal appearance. He is normal weight. He is notill-appearing. Comments: Tall, slender with a BMI of 23.6 having a 7 pound weight gainin the last 6 months, no acute distress, alert and oriented, fluentspeech, well-spoken HENT: Head: Normocephalic and atraumatic. Right Ear: Tympanic membrane, ear canal and external ear normal. Left Ear: Tympanic membrane, ear canal and external ear normal. Ears: Comments: Bilateral hearing aids in place which were removed duringexam Nose: Nose normal. Mouth/Throat: Mouth: Mucous membranes are moist. Pharynx: Oropharynx is clear. Comments: No intraoral lesions or abnormalities noted other than,erosion, multiple teeth present with no overt decay appreciated Eyes: Extraocular Movements: Extraocular movements intact. Conjunctiva/sclera: Conjunctivae normal. Pupils: Pupils are equal, round, and reactive to light. Neck: Vascular: No carotid bruit. Comments: Significant decreased mobility of his neck in all directionswith reverse lordosis, no palpable adenopathy masses or tenderness, nopericlavicular or axillary or inguinal adenopathy Cardiovascular: Rate and Rhythm: Normal rate and regular rhythm. Pulses: Normal pulses. Heart sounds: Normal heart sounds. No murmur heard. No friction rub. No gallop. Comments: 2+ carotids without bruits, 2+ radial pulses, 2+ femoralpulses without bruits, 2+ bipedal pulses with good perfusion and noedema Pulmonary: Effort: Pulmonary effort is normal. No respiratory distress. Breath sounds: Normal breath sounds. Abdominal: General: Abdomen is flat. Bowel sounds are normal. There is nodistension. Palpations: Abdomen is soft. There is no mass. Tenderness: There is no abdominal tenderness. There is no guarding orrebound. Hernia: No hernia is present. Genitourinary: Comments: and rectal exams deferred as routinely followed byurology. Musculoskeletal: General: Deformity present. No swelling, tenderness or signs of injury. Cervical back: Rigidity present. No tenderness. Right lower leg: No edema. Left lower leg: No edema. Comments: Significant rigidity with decreased range of motion of hisneck to the spine, having noticed chronic kyphosis and dextroscoliosiswith no pain, no inducible left thigh pain either with range of motiontesting of his hip, palpation, and negative straight leg raise Lymphadenopathy: Cervical: No cervical adenopathy. Skin: General: Skin is warm and dry. Capillary Refill: Capillary refill takes less than 2 seconds. Findings: Lesion present. No rash. Comments: Chronic lipoma measuring 10 x 5 cm over the right ASIS/hipregion, asymptomatic, possibly slightly larger in size from 1 year priorbut nonconcerning patient's back has multiple seborrheic keratoses benignin nature, single 7 mm diameter scabbing lesion with minimal surroundingerythema but no tenderness to discharge on the right mid thoracic backlikely representing tick bite site. There is no concerning surroundingrash. Asymptomatic. Neurological: Mental Status: He is alert and oriented to person, place, and time.Mental status is at baseline. Cranial Nerves: No cranial nerve deficit. Sensory: Sensory deficit present. Motor: No weakness. Coordination: Coordination normal. Gait: Gait normal. Deep Tendon Reflexes: Reflexes normal. Comments: Chronically has some numbness and tingling over the rightanterior thigh with some tendency towards the medial aspect, clinicallystable Psychiatric: Mood and Affect: Mood normal. Behavior: Behavior normal. Thought Content: Thought content normal. Judgment: Judgment normal. ECG 12 Lead Date/Time: 02/26/2024 11:20 AM Performed by: Manjit Gorman MD Authorized by: Manjit Gorman MD Comparison: compared with previous ECGfrom 02/21/2024 Similar to previous ECG Comparison to previous ECG: Sinus rhythm rate 67, first-degree AV block,IVCD, no change versus prior EKG Assessment and Plan Diagnoses and all orders for this visit: 1. Encounter for general adult medical examination with abnormal findings(Primary) Assessment & Plan: Healthy 73-year-old male presenting for yearly complete physical andMedicare wellness visit, health issues being addressed as detailed below,health maintenance includes colonoscopy up-to-date from 03/2017 [id number] follow-up recommended, vaccinations recommend update includingCOVID-19 which she will obtain through pharmacy and Tdap which shedeclines given lack of Medicare coverage, [facility] including a TSH CBC CMP all of which wereunremarkable, they recently obtained through urology and satisfactory,will supplement with lipid profile hemoglobin A1c vitamin D urinalysis andurine microalbumin, EKG stable today. Orders: - Vitamin D,25-Hydroxy; Future - Urinalysis With Culture If Indicated -; Future - MicroAlbumin, Urine, Random - Urine, Clean Catch; Future - Hemoglobin A1c; Future - Lipid Panel; Future - Lipid Panel - Hemoglobin A1c - MicroAlbumin, Urine, Random - Urine, Clean Catch - Urinalysis With Culture If Indicated - Urine, Clean Catch - Vitamin D,25-Hydroxy 2. Prediabetes Assessment & Plan: Most recent hemoglobin A1c normal at 5.4% in 02/2023. Update testing.Pursue healthy lifestyle. Orders: - Vitamin D,25-Hydroxy; Future - MicroAlbumin, Urine, Random - Urine, Clean Catch; Future - Hemoglobin A1c; Future - Hemoglobin A1c - MicroAlbumin, Urine, Random - Urine, Clean Catch - Vitamin D,25-Hydroxy 3. Primary hypertension Assessment & Plan: Very satisfactory blood pressure control acutely as well as chronicallytaking amlodipine/benazepril 2.5/10 mg daily. Continue current regimenwith monitoring. Patient did have [facility] was un[facility] thus will not be repeated today. Orders: - ECG 12 Lead - Urinalysis With Culture If Indicated -; Future - Urinalysis With Culture If Indicated - Urine, Clean Catch 4. Dyslipidemia Assessment & Plan: Update lipid profile. Currently not on any cholesterol medication. Orders: - Lipid Panel; Future - Lipid Panel 5. Subclinical hypothyroidism Assessment & Plan: TSH noted to be mildly elevated at 4.4 [facility] in [facility]24. Getting regular TSH monitoring, potentiallydue to history of radiation therapy from his oropharyngeal cancer.Monitor closely through [facility]. Not being repeated today givenrecent testing as noted. 6. Vitamin D deficiency - Vitamin D,25-Hydroxy; Future - Vitamin D,25-Hydroxy 7. Mixed conductive and sensorineural hearing loss of both ears Assessment & Plan: Utilizing hearing aids. Has ongoing ENT evaluation more targeting hishistory of oropharyngeal/base of tongue cancer. 8. Prostate cancer Assessment & Plan: History of prostate cancer status post CyberKnife therapy [place] [address] Mina transitioning to [place] in same office given Dr. Minareportedly leaving for different location. Most recent PSA reported bypatient to be decreased to 0.8 getting every 4 month evaluations. 9. 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 Gets regular follow-up with oncology, radiationtherapy and ENT currently every [address] scanning mostrecently satisfactory earlier this month. No major side effects noted atthis time. 10. Benign lipomatous neoplasm of skin and subcutaneous tissue of trunk Assessment & Plan: Chronic lipomatous lesion on the right hip near the ASIS, possiblyslightly enlarged from last year based upon measurements recorded but verystable for many years and asymptomatic. Observation recommended. 11. Primary osteoarthritis involving multiple joints Assessment & Plan: Spine from cervical through lumbar region, asymptomatic, recent neck CTmonitoring his oropharyngeal cancer did not reveal several facet jointswhich have fused with extensive degenerative changes, consideration ofphysical therapy though in truth would not likely be beneficial. He willwork on home stretching exercises himself. 12. Kyphoscoliosis Assessment & Plan: Clinically stable for many years, asymptomatic, did suggest potential ofphysical therapy which is not likely to alter his course. Observationrecommended. 13. Pain of left thigh Assessment & Plan: Met nonspecific pain in the left lateral thigh present by history forseveral months more with initial weightbearing, not reproducible today inthe office either by palpation or range of motion testing of his leg andhaving a negative straight leg raise testing. Uncertain specificetiology, possibly muscular strain versus radiculopathy from the lowerspine. Recommended observation for now unless becomes more problematic. 14. Meralgia paresthetica of right side Assessment & Plan: Noted on his right thigh. Discussed pathophysiology of this disorder.Given does not cause pain or functional limitation, observation isrecommended. 15. Tick bite of lower back, initial encounter Assessment & Plan: History of a tick bite last week, tick removed with tweezers, duration ofattachment uncertain, asymptomatic other than the small scabbing lesion.Recommend simply observation at this time monitoring for any developmentof typical erythema margin on rash, tenderness, fever spikes arthralgiasetc. Follow Up Return in about 1 year (around 02/25/2025) for Medicare Subsq.. Patient was given instructions and counseling regarding his condition orfor health maintenance advice. Please see specific information pulled intothe AVS if appropriate. Manjit Gorman MD ECG ORDERABLES Final Result ECG * Microscopic Examination - (02/26/2024 10:22 AM EDT) WBC, UA None seen 0 - 5 /hpf [facility] RBC, UA None seen 0 - 2 /hpf [facility] Epithelial Cells (non renal) None seen 0 - 10 /hpf [facility] Casts None seen None seen /lpf [facility] Bacteria, UA None seen None seen/Few [facility] 02/26/2024 10:2 2 AM EDT 02/26/2024 Comment:Urine Release to [facility] (AMBULATORY) - 02/29/2024 6:05 AM EDT Performed at: ??01 - [address] ??[id number] Boat Assembler: Toby Rosario PhD, Phone: ??[phone] Manjit Gorman MD URINE ORDERABLES Final Result [facility] (AMBULATORY) [address] [place] [address], [facility] [address] [place] [address], * Lipid Panel (02/26/2024 10:22 AM EDT) Total Cholesterol 152 100 - 199 mg/dL [facility] Triglycerides 104 0 - 149 mg/dL [facility] HDL Cholesterol 56 >39 mg/dL [facility] VLDL Cholesterol Brannon 19 5 - 40 mg/dL [facility] LDL Chol Calc (NIH) 77 0 - 99 mg/dL [facility] Blood Structure of right upper limb / Unknown 02/26/2024 10:22 AM EDT 02/26/2024 Comment:Blood Release to [facility] [place] (AMBULATORY) - 02/27/2024 11:07 AM EDT Performed at: ??01 - [facility] [place] [address] [place] [address] ??[id number] Boat Assembler: Toby Rosario PhD, Phone: ??[phone] Manjit Gorman MD LAB BLOOD ORDERABLES Final Res ult Performing Organization Address [facility]/ZIP Co de Phone Number [facility] (AMBULATORY) [address] [place] [address], [facility] [address] [place] [address], * (ABNORMAL) Hemoglobin A1c (02/26/2024 10:22 AM EDT) Hemoglobin A1C 5.7(H) 4.8 - 5.6 % [facility] Comment: ? Prediabetes: 5.7 - 6.4 ? Diabetes: >6.4 ? Glycemic control for adults with diabetes: <7.0 Blood Structure of right upper limb / Unknown 02/26/2024 10:22 AM EDT 02/26/2024 Comment:Blood Release to mariha Jefferson [facility] (AMBULATORY) - 02/27/2024 11:07 AM EDT Performed at: ??01 - [facility] [address] ??[id number] Boat Assembler: Toby Rosario PhD, Phone: ??[phone] Manjit Gorman MD LAB BLOOD ORDERABLES Final Res ult Performing Organization Address City/[facility]/ZIP Co de Phone Number [facility] [address] [place] [address], [place] [phone] [facility] [address] [place] [address], * MicroAlbumin, Urine, Random - Urine, Clean Catch (02/26/2024 10:22 AM EDT) Microalbumin, Urine 12.6 Not Estab. ug/mL [facility] Urine Urine specimen obtained by clean catch procedure / Unknown 02/26/2024 10:22 AM EDT 02/26/2024 Comment:Urine Release to pat i Narrative [facility] ([facility]ORY) - 02/29/2024 6:05 AM EDT Performed at: ??01 - [facility] [address] ??[id number] Boat Assembler: Toby Rosario PhD, Phone: ??[phone] Manjit Gorman MD URINE ORDERABLES Final Result [facility] ([facility]) [address] [place] [address], [facility] [address] [place] [address], * Urinalysis With Culture If Indicated - Urine, Clean Catch (02/26/2024 10:22 AM EDT) Specific [place], UA 1.026 1.005 - 1.030 [facility] pH, UA 5.5 5.0 - 7.5 [facility] Color, UA Yellow Yellow [facility] Appearance, UA Clear Clear [facility] Leukocytes, UA Negative Negative [facility] Protein Negative Negative/Tra ce [facility] Glucose, UA Negative Negative [facility] Ketones Negative Negative [facility] Blood, UA Negative Negative [facility] Bilirubin, UA Negative Negative [facility] Urobilinogen, UA 0.2 0.2 - 1.0 mg/dL [facility] Nitrite, UA Negative Negative [facility] Microscopic Examination Comment [facility] Comment:Microscopic follows if indicated. Microscopic Examination See below: [facility] Comment:Microscopic was mikie cated and was performed. Urinalysis Reflex Comment [facility] Comment:This specimen will n ot reflex to a Urine Culture. Urine Urine specimen obtained by clean catch procedure / Unknown 02/26/2024 10:22 AM EDT 02/26/2024 Comment:Urine Release to pat i Narrative [facility] ([facility]) - 02/29/2024 6:05 AM EDT Performed at: ??01 - [facility] [address] [place], [place] ??[id number] Boat Assembler: Toby Rosario PhD, Phone: ??[phone] Manjit Gorman MD URINE ORDERABLES Final Result Performing Organization Address City/[facility]/ZIP Co de Phone Number [facility] (AMBULATORY) [address] [place] [address], [facility] [address] [place] [address], * Vitamin D,25-Hydroxy (02/26/2024 10:22 AM EDT) 25 Hydroxy, Vitamin D 39.6 30.0 - 100.0 ng/mL [facility] Comment: Vitamin D deficiency has been defined by the [place] of [employer] and an Endocrine Society practice guideline as a level of serum 25-OH vitamin D less than 20 ng/mL (1,2). The Endocrine Society went on to further define vitamin D insufficiency as a level between 21 and 29 ng/mL (2). 1. IOM ([place] of [employer]). 2010. Dietary reference ?? intakes for calcium and D. [place]: The ?? National Academies Press. 2. Rochelle MF, [place]angel [place], Shantal-Luis Antonio ART, et al. ?? Evaluation, treatment, and prevention of vitamin D ?? deficiency: an Endocrine Society clinical practice ?? guideline. JCEM. 2010; 96(7):1911-30. Blood Structure of right upper limb / Unknown 02/26/2024 10:22 AM EDT 02/26/2024 Comment:Blood Release to mariah Jefferson [facility] (AMBULATORY) - 02/27/2024 11:07 AM EDT Performed at: ??01 - [facility] [address] [place] [address] ??[id number] Boat Assembler: Toby Rosario PhD, Phone: ??[phone] Manjit Gorman MD LAB BLOOD ORDERABLES Final Res ult Performing Organization Address City/[facility]/ZIP Co de Phone Number [facility] (AMBULATORY) [address] [place] [address], [place] [phone] [facility] [address] [place] [address], documented in this encounter Visit Diagnoses Diagnosis Encounter for general adult medical examination with abnormal findings- Primary Prediabetes Other abnormal glucose Primary hypertension Unspecified essential hypertension Dyslipidemia Other and unspecified hyperlipidemia Subclinical hypothyroidism Other specified acquired hypothyroidism Vitamin D deficiency Mixed conductive and sensorineural hearing loss of both ears Prostate cancer Malignant neoplasm of prostate Cancer of base of tongue Malignant neoplasm of base of tongue Benign lipomatous neoplasm of skin and subcutaneous tissue of trunk Primary osteoarthritis involving multiple joints Kyphoscoliosis Scoliosis (and kyphoscoliosis), idiopathic Pain of left thigh Meralgia paresthetica of right side Tick bite of lower back, initial encounter documented in this encounter Care Teams Cooker Sulfite Relationship Specialty Start Date End Date Manjit Gorman MD [address] [place] [address] [place] [address] PCP - General Internal Medicine 09/18/21 documented as of this encounter
--- OUTSIDE RECORDS SUMMARY | 2024-07-27 06:49 | XMS_ITS | Encounter Summary ---
Author Organization [facility] Address [address] [place] [address] Care Team Providers Care Physician Intensivist Name Role Phone Manjit Gorman MD Primary Care Provider [phone] Encounter Details Date Type Department Care Team (Late st Contact Info) Description 08/10/2023 8:45 AM EST Office Visit [facility] [address] [place] [address] [place] [id number] Manjit Gorman MD [address] [place] [address] [place] [id number] Prediabetes (Primary Dx); Primary hypertension; Prostate cancer; Cancer of base of tongue; Paresthesia and pain of right extremity Social History Tobacco Use Types Packs/Day Years [...] Brief Depression Severity Measure Score 0 02/20/2023 Sex and Gender Information Value Date Recorded Sex Assigned at Not on file Legal Sex Male 4:13 PM EST Gender Identity Not on file Sexual Orientation Not on file documented as of this encounter Last Filed Vital Signs Vital Sign Reading Time Taken Comments Blood Pressure 122/80 08/10/2023 8:42 AM EST Pulse 99 08/10/2023 8:42 AM EST Temperature 36.4 ??C (97.5 ??F) 08/10/2023 8:42 AM ES T Respiratory Rate 18 08/10/2023 8:42 AM EST Oxygen Saturation 99% 08/10/2023 8:42 AM EST Inhaled Oxygen Concentration - - Weight 76.1 kg (167 lb 12.8 oz) 08/10/2023 8:42 AM EST Height 182.9 cm (6') 08/10/2023 8:42 AM EST Body Mass Index 22.76 08/10/2023 8:42 AM EST documented in this encounter Progress Notes * Manjit Gorman MD - 08/10/2023 8:45 AM EST Images from the original note were not included. Answers submitted by the patient for this visit: Primary Reason for Visit (Submitted on 08/04/2023) What is the primary reason for your visit?: Other Other (Submitted on 08/04/2023) Please describe your symptoms.: follow-up per Dr Manjit Gorman's request Have you had these symptoms before?: No How long have you been having these symptoms?: Greater than 2 weeks Please list any medications you are currently taking for this condition.: N/A Please describe any probable cause for these symptoms. : N/A Follow Up Office Visit Date: 08/10/2023 Patient Name: Erick Sierra : 1950 Chief Complaint: No chief complaint on file. History of Present Illness: Erick Sierra is a 72 y.o. male who is here today for general review, last visit 6 months ago. He has a history of prostate cancer, followed by Dr. Bart Mina, who perpatient account is reportedly leaving the practice and has recommended a nurse practitioner to follow-up. He is to see Dr. Mina next week. Last PSA was approximately 1.0, not have any specific urological complaints at this time. 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 He does describe now for over 6 months having some numb sensation on the right thigh, for which I had initially suspected last visit that this represented meralgia paresthetica. He describes the symptoms as being more anterior medial rather than lateral, extending up towards the scrotum. He will occasionally have a discomfort in the area more towards the proximal medial thigh, and occasionally down the right medial knee. He also feels like he may have to help assist his right leg when he gets into his elevated vehicle but is not aware of any specific weakness and has no loss of bowel or bladder control. No low back pain. Overall the symptoms have not changed. He is a prediabetichowever had normalization of his hemoglobin A1c 6 months ago down to 5.4%. Has hypertension taking amlodipine/benazepril 2.5/10 mg daily with blood pressures when he is in a normal environment averaging 120s over 70s. Denies chest pains palpitations dyspnea dizziness or edema. No other acute problems or concerns at this time. He did have laboratory testing in 07/2023 including TSH CBC and CMP allof which were unremarkable, and prior to that had a full set of laboratory testing ordered by me in02/2023... Patient indicates that he has had his first Shingrix vaccine and RSV vaccine along with COVID booster through his pharmacy. We did discuss Tdap which is not covered by his Medicare, patientindicated he believes he has had 1 within the last 10 years, but otherwise will defer given lack ofMedicare coverage unless has a formal indication. Subjective Review of Systems: Review of Systems I have reviewed the patients family history, social history, past medical history, past surgical history and have updated it as appropriate. Medications: Current Outpatient Medications: amLODIPine-benazepril (LOTREL 2.5-10) 2.5-10 MG per capsule, Take 1 capsule by mouth once daily, Disp: 90 capsule, Rfl: 3 BLACK ELDERBERRY PO, Take 1 tablet by mouth Every Night., Disp: , Rfl: multivitamin with minerals tablet tablet, Take 1 tablet by mouth Daily., Disp: , Rfl: tadalafil (CIALIS) 5 MG tablet, TAKE 1 OR 2 TABLETS BY MOUTH DAILY NEEDED FOR ED, Disp: , Rfl: acyclovir (ZOVIRAX) 800 MG tablet, Take 1 tablet by mouth 2 (Two) Times a Day. (Patient not taking:Reported on 08/10/2023), Disp: , Rfl: Allergies: No Known Allergies Objective Physical Exam: Please see above Vital Signs: Vitals: 08/10/23 0842 BP: 122/80 BP Location: Left arm Patient Position: Sitting Cuff Size: Adult Pulse: 99 Resp: 18 Temp: 97.5 ??F (36.4 ??C) TempSrc: Temporal SpO2: 99% Weight: 76.1 kg (167 lb 12.8 oz) Height: 182.9 cm (72 ) Body mass index is 22.76 kg/m??. BMI is within normal parameters. No other follow-up for BMI required. Physical Exam General: Very pleasant tall slender healthy-appearing 72-year-old male who is in no acute distress. Head and neck: Oral pharynx reveals no evidence of active concerning lesions, moist membranes, gooddentition, neck supple with no masses or tenderness, moderate decreased range of motion in all directions secondary to underlying degenerative changes Lungs are clear with no wheeze tachypnea or cough Cardiac regular rate rhythm with no murmurs gallops or rubs Musculoskeletal exam with no palpable back pain, vague discomfort to palpation and more so to rangeof motion testing of the hip and the right proximal medial thigh, subjective decrease sensation on the anterior medial aspect of the right thigh with normal sensation distally, no objective weakness noted in the right leg relative to the left, 2+ knee jerks symmetrically noted bilaterally, difficult to elicit but symmetric ankle jerks bilaterally, with normal strength and sensation in both distallower extremities Diabetic Foot Exam Performed and Monofilament Test Performed Procedures Results: Labs: Hemoglobin A1C Date Value Ref Range Status 02/20/2023 5.4 4.8 - 5.6 % Final Comment: Prediabetes: 5.7 - 6.4 Diabetes: >6.4 Glycemic control for adults with diabetes: <7.0 POCT Results (if applicable): Results for orders placed or performed in visit on 02/20/23 MicroAlbumin, Urine, Random - Urine, Clean Catch Specimen: Urine, Clean Catch Urine Result Value Ref Range Microalbumin, Urine 7.6 Not Estab. ug/mL Urinalysis With Culture If Indicated - Urine, Clean Catch Specimen: Urine, Clean Catch Urine Result Value Ref Range Specific [place], UA 1.028 1.005 - 1.030 pH, UA 5.5 5.0 - 7.5 Color, UA Yellow Yellow Appearance, UA Clear Clear Leukocytes, UA Negative Negative Protein Negative Negative/Trace Glucose, UA Negative Negative Ketones Negative Negative Blood, UA Negative Negative Bilirubin, UA Negative Negative Urobilinogen, UA 0.2 0.2 - 1.0 mg/dL Nitrite, UA Negative Negative Microscopic Examination Comment Microscopic Examination See below: Urinalysis Reflex Comment Vitamin D,25-Hydroxy Specimen: Arm, Right; Blood Blood Release to juventino Result Value Ref Range 25 Hydroxy, Vitamin D 45.5 30.0 - 100.0 ng/mL Lipid Panel Specimen: Arm, Right; Blood Blood Release to juventino Result Value Ref Range Total Cholesterol 187 100 - 199 mg/dL Triglycerides 90 0 - 149 mg/dL HDL Cholesterol 72 >39 mg/dL VLDL Cholesterol Brannon 16 5 - 40 mg/dL LDL Chol Calc (NIH) 99 0 - 99 mg/dL Hemoglobin A1c Specimen: Arm, Right; Blood Blood Release to juventino Result Value Ref Range Hemoglobin A1C 5.4 4.8 - 5.6 % Hepatitis C Antibody Specimen: Arm, Right; Blood Blood Release to juventino Result Value Ref Range Hep C Virus Ab Non Reactive Non Reactive Microscopic Examination - Urine Result Value Ref Range WBC, UA None seen 0 - 5 /hpf RBC, UA None seen 0 - 2 /hpf Epithelial Cells (non renal) None seen 0 - 10 /hpf Casts None seen None seen /lpf Crystals, UA Present (A) N/A Crystal Type Uric Acid N/A Bacteria, UA None seen None seen/Few Imaging: No valid procedures specified. Answers submitted by the patient for this visit: Primary Reason for Visit (Submitted on 08/04/2023) What is the primary reason for your visit?: Other Other (Submitted on 08/04/2023) Please describe your symptoms.: follow-up per Dr Manjit Gorman's request Have you had these symptoms before?: No How long have you been having these symptoms?: Greater than 2 weeks Please list any medications you are currently taking for this condition.: N/A Please describe any probable cause for these symptoms. : N/A Assessment / Plan Assessment/Plan: Diagnoses and all orders for this visit: 1. Prediabetes (Primary) Prediabetes with most recent hemoglobin A1c normalized at 5.4% in 02/2023. Will monitor regularly repeating study at next visit, encouraging healthy lifestyle with diet and exercise. 2. Primary hypertension Satisfactory blood pressure control acutely, as well as chronically when checked in his home environment. He will have mild elevations blood pressures typically when he is checked in the medical setting. Continue amlodipine/benazepril 2.5/10 mg daily with monitoring and healthy lifestyle efforts. 3. Prostate cancer Status post CyberKnife treatment, followed by Dr. Bart Mina of urology, the patient indicates he will be leaving the practice, details unknown. He is scheduled to see Dr. Mina next week in follow-up. Most recent PSA available to me is 1.0 in 01/2023. 4. Cancer of base of tongue Status post radiation chemotherapy, followed by Dr. Lamar Alejandro, getting extensive surveillance scans including most recently CT of the soft tissues of the neck along with chest abdomen pelvis in 07/2023, and also having had a PET/CT from his neck through his mid thighs in 03/2023 revealing no concerning hypermetabolic activity. Has apparently been discharged from radiation oncology follow-up. Keep routine oncology follow-up. 5. Paresthesia and pain of right extremity Describes greater than 6-month history of some vague numbness on the right anterior and medial thigh as well as some occasional discomfort in the same area more proximally. Does not have any palpablepain and no objective weakness or other neurological asymmetry relative to the left leg. Given the fact he had a PET/CT from his neck through his mid thighs in 03/2023, this having been obtained afterhis symptom onset, would make it very likely that this symptom complex would represent a hypermetabolic metastatic lesion to his lumbar spine or otherwise. Does not have a typical distribution but certainly could be an atypical presentation of meralgia paresthetica. I also advised that he discuss this syndrome with his urologist, Dr. Mina, to ensure he had no concerns related to his previous prostate cancer, though as noted above, he did have a PET/CT which was very reassuring. We have both agreed for now that we will hold off on any imaging of his L-spine as long as his symptoms are stable and not progressive, noting not lifestyle limiting at this time. Follow Up: Return in about 6 months (around 02/09/2024) for Annual physical, Medicare Subsq.. At [facility], we believe that sharing information builds trust and better relationships. You are receiving this note because you recently visited [facility]. It is possible you will see health information before a provider has talked with you about it. This kind of information can be easy to misunderstand. To help you fully understand what it means for your health, we urge you to discussthis note with your provider. Manjit Gorman MD [facility] documented in this encounter Plan of Treatment Upcoming Encounters Date Type Department Care Team (Late st Contact Info) Description 08/22/2024 8:30 AM EST Office Visit [facility] [address] [place] [address] [place] [phone] Manjit Gorman MD [address] [place] [address] [place] [id number] 02/27/2025 9:00 AM EDT Office Visit [facility] [address] [place] [address] [place] [phone] Manjit Gorman MD [address] [place] [id number] documented as of this encounter Visit Diagnoses Diagnosis Prediabetes- Primary Other abnormal glucose Primary hypertension Unspecified essential hypertension Prostate cancer Malignant neoplasm of prostate Cancer of base of tongue Malignant neoplasm of base of tongue Paresthesia and pain of right extremity documented in this encounter Care Teams Physician Intensivist Relationship Specialty Start Date End Date Manjit Gorman MD [address] [place] [address] PCP - General Internal Medicine 09/18/21 documented as of this encounter
--- OUTSIDE RECORDS SUMMARY | 2024-07-27 06:49 | XMS_ITS | Encounter Summary ---
[facility] Address [address] [place] [address] Care Team Providers Care Commercial Lines Underwriter Name Role Phone Manjit oGrman MD Primary Care Provider [phone] Encounter Details Date Type Department Care Team (Late st Contact Info) Description 03/01/2024 Telephone [facility] [address] [place] [phone] Manjit Gorman MD [address] [place] [address] [place] [address] Social History Tobacco Use Types Packs/Day Years Used Date Smoking Tobacco: Never Smokeless Tobacco: Never Alcohol Use Standard Drinks/Week Comments Yes 1 [...] on file documented as of this encounter Miscellaneous Notes * Telephone Encounter - Tmaanna Hernández - 03/01/2024 2:37 PM EDT ----- Message from Manjit Gorman sent at 02/29/2024 6:09 PM EDT ----- Please advise patient that his recently obtained laboratory testing revealed a very borderline elevation of his hemoglobin A1c consistent with his previous diagnosis of prediabetes, for which simply healthy lifestyle including healthy diet and regular exercise is recommended with plan to repeat another hemoglobin A1c in 6 months. His urine testing, vitamin D and cholesterol profile were all very satisfactory. No changes in regimen recommended at this time. Schedule follow-up visit in 6 months for purposes of repeating hemoglobin A1c. I have spoke with him regarding his labs. He has scheduled his follow up in Aug for his A1C. TF documented in this encounter Plan of Treatment Upcoming Encounters Date Type Department Care Team (Late st Contact Info) Description 08/22/2024 8:30 AM EST Office Visit [facility] [address] [place] [address] [place] [phone] Manjit Gorman MD [address] [place] [address] [place] [id number] 02/27/2025 9:00 AM EDT Office Visit [facility] [address] [place] [address] [place] [phone] Manjit Gorman MD [address] [place] [address] documented as of this encounter Visit Diagnoses Not on filedocumented in this encounter Care Teams Commercial Lines Underwriter Relationship Specialty Start Date End Date Manjit Gorman MD [address] [place] [address] PCP - General Internal Medicine 09/18/21 documented as of this encounter
--- OUTSIDE RECORDS SUMMARY | 2024-07-27 06:49 | XMS_ITS | Encounter Summary ---
Author Organization [facility] Address [address] [place] [address] Care Team Providers Care Retinal Surgeon Name Role Phone Manjit Gorman MD Primary Care Provider [phone] Encounter Details Date Type Department Care Team (Latest Contact Info) Description 08/05/2023 6:25 AM EST - 08/05/2023 11:59 PM [facility] Hospital Encounter [facility] [address] REPLACED BY [facility] [address] [place] [address] Discharge Disposition: Home or Self Care Social History Tobacco Use Types Packs/Day Years [...] on file documented as of this encounter Medications at Time of Discharge BLACK ELDERBERRY PO Take 1 tablet by mouth Every Night. multivitamin with minerals tablet tablet Take 1 tablet by mouth Daily. tadalafil (CIALIS) 5 MG tablet TAKE 1 OR 2 TABLETS BY MOUTH DAILY NEEDED FOR ED 04/15/2022 acyclovir (ZOVIRAX) 800 MG tablet Take 1 tablet by mouth 2 (Two) Times a Day. 07/29/2023 02/24/2024 amLODIPine-benaze pril (LOTREL 2.5-10) 2.5-10 MG per capsule Take 1 capsule by mouth once daily 90 capsule 3 03/27/2023 02/24/2024 documented as of this encounter Plan of Treatment Upcoming Encounters Date Type Department Care Team (Late st Contact Info) Description 08/22/2024 8:30 AM EST Office Visit [facility] [place] [address] Manjit Gorman MD [facility] [place] [address] 02/27/2025 9:00 AM EDT Office Visit [facility] [place] [place] [address] Manjti Gorman MD [facility] [place] [address] documented as of this encounter Visit Diagnoses Not on filedocumented in this encounter Care Teams Retinal Surgeon Relationship Specialty Start Date End Date Manjit Gorman MD [address] [place] [address] PCP - General Internal Medicine 09/18/21 documented as of this encounter
--- OUTSIDE RECORDS SUMMARY | 2024-07-27 06:49 | XMS_ITS | Encounter Summary ---
Author Organization [facility] Address [address] [place] [address] Care Team Providers Care Radar Technician Name Role Phone Manjit Gorman MD Primary Care Provider [phone] Reason for Visit * Reason Onset Date Comments Med Refill 04/06/2024 Encounter Details Date Type Department Care Team (Late st Contact Info) Description 04/06/2024 Refill [facility] [address] [place] [address] [place] [address] Manjit Gorman MD [address] [place] [address] [place] [address] Social History Tobacco Use Types Packs/Day [...] encounter Miscellaneous Notes * Telephone Encounter - Magaly Pandey RegSched Rep - 04/06/2024 10:23 AM EDT Caller: Erick Sierra Relationship: Self Best call back number: [phone] Requested Prescriptions: Requested Prescriptions Pending Prescriptions Disp Refills amLODIPine-benazepril (LOTREL 2.5-10) 2.5-10 MG per capsule Sig: Take 1 capsule by mouth Daily. Pharmacy where request should be sent: [facility] [address] [place] [address] [facility] [phone] FX Last office visit with prescribing clinician: 02/26/2024 Last telemedicine visit with prescribing clinician: Visit date not found Next office visit with prescribing clinician: 08/22/2024 Additional details provided by patient: NEEDS THIS BY THURSDAY Does the patient have less than a 3 day supply: [] Yes [x] No Would you like a call back once the refill request has been completed: [] Yes [x] No If the office needs to give you a call back, can they leave a voicemail: [] Yes [x] No Lucila Singh 04/06/24 10:23 EDT documented in this encounter Plan of Treatment Upcoming Encounters Date Type Department Care Team (Late st Contact Info) Description 08/22/2024 8:30 AM EST Office Visit [facility]IMARY [address] [place] [address] Manjit Gorman MD [address] [place] [address] [place] [address] 02/27/2025 9:00 AM EDT Office Visit [facility] [address] [place] [address] Manjit Gorman MD [address] [place] [address] [place] [address] documented as of this encounter Visit Diagnoses Not on filedocumented in this encounter Care Teams Radar Technician Relationship Specialty Start Date End Date Manjit Gorman MD [address] [place] [address] PCP - General Internal Medicine 09/18/21 documented as of this encounter
--- OUTSIDE RECORDS SUMMARY | 2024-07-27 06:50 | XMS_ITS | Encounter Summary ---
[facility] Organization [facility] Address [address] [place] [address] Care Team Providers Care Nitric Acid Plant Operator Name Role Phone Manjit Gorman MD Primary Care Provider [phone] Encounter Details Date Type Department Care Team (Latest Contact Info) Description 12/16/2021 8:57 AM EDT - 12/16/2021 11:59 PM EDT Hospital Encounter [facility] [address]00 [facility] [address] [place] [phone] Discharge Disposition: Home or Self Care Social History Tobacco Use Types Packs/Day Years Used Date Smoking Tobacco: Never Smokeless Tobacco: Never Alcohol Use Standard Drinks/Week Comments Yes 1 (1 standard drink = 0.6 oz pur e alcohol) Sex and Gender Information Value Date Recorded Sex Assigned at Not on file Legal Sex Male 4:13 PM EST Gender Identity Not on file Sexual Orientation Not on file documented as of this encounter Medications at Time of Discharge multivitamin with minerals tablet tablet Take 1 tablet by mouth Daily. amLODIPine-benaz epril (LOTREL 2.5-10) 2.5-10 MG per capsule 07/11/2021 10/02/2022 ciprofloxacin (CIPRO) 750 MG tabletIndication s:Prostate cancer Take 1 tablet by mouth 2 (Two) Times a Day. 6 tablet 10/24/2021 01/17/2022 sildenafil (VIAGRA) 100 MG tablet Take 100 mg by mouth Daily As Needed for Erectile Dysfunction. 04/15/2022 tamsulosin (FLOMAX) 0.4 MG capsule 24 hr capsule Take 1 capsule by mouth Every Night. 30 capsule 11 11/12/2021 04/15/2022 terbinafine (lamiSIL) 250 MG tablet 09/17/2021 02/19/2023 documented as of this encounter Plan of Treatment Upcoming Encounters Date Type Department Care Team (Late st Contact Info) Description 08/22/2024 8:30 AM EST Office Visit [address] [place] [address] Manjit Gorman MD [address] [place] [address] [place] [address] 02/27/2025 9:00 AM EDT Office Visit [address] [place] [address] Manjit Gorman MD [address] [place] [address] [place] [address] documented as of this encounter Visit Diagnoses Not on filedocumented in this encounter Care Teams Nitric Acid Plant Operator Relationship Specialty Start Date End Date Manjit Gorman MD [address] [place] [address] PCP - General Internal Medicine 09/18/21 documented as of this encounter
--- OUTSIDE RECORDS SUMMARY | 2024-07-27 06:50 | XMS_ITS | Encounter Summary ---
Author Organization [facility] Address [address] [place] [address] Care Team Providers Care Sock Folder Name Role Phone Manjit Gorman MD Primary Care Provider [phone] Reason for Visit * Auth/Cert Specialty Diagnoses / Procedures Referred By Contac t Referred To Contact Diagnoses Malignant neoplasm of prostate Procedures CHG RADN RX DELIV,BODY, EACH FRACTION Referral ID Status Reason Start Date Expiration Date Visits Re quested Visits Authorized [id number] 1 1 Encounter Details Date Type Department Care Team (Latest Contact Info) Description 11/12/2021 5:05 AM EST - 11/12/2021 11:59 PM EST Hospital Encounter [facility] 1700 [facility] [address] [place] [address] Discharge Disposition: Home or Self Care Social [...] Description 08/22/2024 8:30 AM EST Office Visit [facility] [address] [place] [address] [place] [address] Manjit Gorman MD [address] [place] [address] [place] [address] 02/27/2025 9:00 AM EDT Office Visit [facility] PRIMARY [address] [place] [address] Manjit Gorman MD [address] [place] [address] [place] [address] documented as of this encounter Visit Diagnoses Not on filedocumented in this encounter Care Teams Sock Folder Relationship Specialty Start Date End Date Manjit Gorman MD [address] [place] [address] [place] [address] PCP - General Internal Medicine 09/18/21 documented as of this encounter
--- OUTSIDE RECORDS SUMMARY | 2024-07-27 06:50 | XMS_ITS | Encounter Summary ---
Author Organization [facility] Address [address] [place] [address] Care Team Providers Care Program Clerk Name Role Phone Manjit Gorman MD Primary Care Provider [phone] Encounter Details Date Type Department Care Team (Late st Contact Info) Description 08/05/2023 3:00 PM EST Office Visit [facility] [address] [place] [phone] Jann Callejas MD [address] [place] [address] Prostate cancer (Primary Dx) Social History Tobacco Use Types Packs/Day Years [...] on file documented as of this encounter Progress Notes * Jann Callejas MD - 08/05/2023 3:00 PM EST Telehealth visit with patient today. He has history of favorable intermediate prostate cancer treated with CyberKnife stereotactic body radiotherapy completing 12/17/2021. He tolerated treatment well with minimal residual urinary outflow difficulties. No bowel complaints. PSA values have decreased from pretreatment 4.0 ng/ml, down to 2.5 ng/ml on 03/17/2022, 1.99 ng/ml in September 2022 0.99 ng/ml in March 2023. He had another PSA drawn this week on 08/03/2023 and should know the results of that by the time he sees Dr. Mina next week. 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 This was treated at the [facility] with definitive chemoradiotherapy. Patient reports he had significant short-term toxicity but has recovered from much of that. He still has persistent hearing loss and will be soon fitted for hearing aids. He reports that he is in remission based on follow-up imaging studies and examination. Impression: Prostate cancer, Kiersten's 3+4=7, clinical stage IIB (T2a, M0, M0), PSA 3.97 ng/mL. 1 and half years status post CyberKnife stereotactic body radiotherapy. He is clinically doing very well with minimal lower urinary tract symptoms. He is an excellent clinical/biochemical response with his last PSA earlier this year value less than 1 ng/mL and pending PSA value from 2 days ago. 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 Plan: He will continue biannual follow-up and PSA testing with his urologist, Dr. Mina. He will notify us of the recent PSA result. I will be happy to see him if the PSA does not continue to trend towards target jolene value or if the PSA rises in the future or if he develops any symptoms related to our treatment with prostate cancer. He will follow-up with ENT, medical oncology and radiation, [facility] regarding his treatedhead neck cancer. Approximately 15 minutes was spent with patient on the phone, reviewing records and documentation today. documented in this encounter Plan of Treatment Upcoming Encounters Date Type Department Care Team (Late st Contact Info) Description 08/22/2024 8:30 AM EST Office Visit [facility] [address] [place] [address] [place] [phone] Manjit Gorman MD [address] [place] [address] [place] [address] 02/27/2025 9:00 AM EDT Office Visit [facility] [place] [address] Manjit Gorman MD [facility] [place] [address] documented as of this encounter Visit Diagnoses Diagnosis Prostate cancer- Primary Malignant neoplasm of prostate documented in this encounter Care Teams Program Clerk Relationship Specialty Start Date End Date Manjit Gorman MD [facility] [place] [address] PCP - General Internal Medicine 09/18/21 documented as of this encounter
--- OUTSIDE RECORDS SUMMARY | 2024-07-27 06:50 | XMS_ITS | Encounter Summary ---
Author Organization [facility] Address [address] [place] [address] Care Team Providers Care Warehouse Inventory Clerk Name Role Phone Manjit Gorman MD Primary Care Provider [phone] Reason for Visit * Reason Comments Prostate Cancer Encounter Details Date Type Department Care Team (Late st Contact Info) Description 07/23/2022 11:00 AM EST Office Visit [facility] [address] [place] [phone] Jann Callejas MD [address] [place] [address] Prostate cancer (Primary Dx) Social History Tobacco Use Types Packs/Day Years Used Date Smoking Tobacco: Never Smokeless Tobacco: Never Alcohol Use Standard Drinks/Week Comments Yes 1 (1 standard drink = 0.6 oz pure alcohol) 7-10 BEERS OVER THE COURSE OF A WEEK PHQ-2 Answer Date Recorded Retired PHQ-9: Brief Depression Severity Measure Score 0 04/15/2022 Sex and Gender Information Value Date Recorded Sex Assigned at Not on file Legal Sex Male 4:13 PM EST Gender Identity Not on file Sexual Orientation Not on file documented as of this encounter Last Filed Vital Signs Vital Sign Reading Time Taken Comments Blood Pressure 150/74 07/23/2022 11:12 AM EST Pulse 64 07/23/2022 11:12 AM EST Temperature 36.1 ??C (97 ??F) 07/23/2022 11:12 AM EST Respiratory Rate 16 07/23/2022 11:12 AM EST Oxygen Saturation 98% 07/23/2022 11:12 AM EST RA Inhaled Oxygen Concentration - - Weight 81.9 kg (180 lb 8 oz) 07/23/2022 11:12 AM EST Height 182.9 cm (6') 07/23/2022 11:12 AM EST Body Mass Index 24.48 07/23/2022 11:12 AM EST documented in this encounter Progress Notes * Jann Callejas MD - 07/23/2022 11:00 AM EST FOLLOW UP NOTE PATIENT: Erick Sierra : 1950 COMPLETION DATE: 12/17/2021 DIAGNOSIS: Prostate cancer (HCC) - Stage IIB (cT2a, cN0, cM0, PSA: 4, Grade Group: 2) BRIEF HISTORY: Routine follow-up visit. He has history of intermediate risk prostate cancer treated with CyberKnife stereotactic body radiotherapy. He tolerated treatment extremely well initially. He discontinued the use of Flomax after 30 days. Since then he has had some recurrence of urinary frequency and urgency but without dysuria or hematuria. Bowel function is regular. Erectile function is slightly decreased and with dry ejaculation. PSA 2.5 ng/ml on 03/17/2022. Over the past 3 months he is noted to have swelling in the right upper neck. Dental evaluation revealed no obvious source. He has had loss of sense of smell and taste which may indicate interim COVIDinfection. He has sore throat but is swallowing well. Voice is normal. He has had neck ultrasound performed recently at outside hospital. We do not have those results. He is scheduled for ENT evaluation next week. MEDICATIONS: Medication reconciliation for the patient was reviewed and confirmed in the electronicmedical record. Review of Systems All other systems reviewed and are negative. IPSS Questionnaire (AUA-7): Over the past month? 1) Incomplete Emptying How often have you had a sensation of not emptying your bladder? 0 - Not at all 2) Frequency How often have you had to urinate less than every two hours? 3 - About half the time 3) Intermittency How often have you found you stopped and started again several times when you urinated? 1 - Less than 1 time in 5 4) Urgency How often have you found it difficult to postpone urination? 3 - About half the time 5) Weak Stream How often have you had a weak urinary stream? 0 - Not at all 6) Straining How often have you had to push or strain to begin urination? 0 - Not at all 7) Nocturia How many times did you typically get up at night to urinate? 1 - 1 time Total Score: 8 ? Quality of life due to urinary symptoms: If you were to spend the rest of your life with your urinary condition the way it is now, how wouldyou feel about that? 2-Mostly Satisfied Urine Leakage (Incontinence) 0-No Leakage ?? Sexual Health Inventory Current Status ?? 1) How do you rate your confidence that you could achieve and keep an erection? 4-High 2) When you had erections with sexual stimulation, how often were your erections hard enough for penetration (entering your partner)? 4-Most times (much more than half the time) 3) During sexual intercourse, how often were you able to maintain your erection after you had penetrated (entered) into your partner? 5-Almost always or always 4) During sexual intercourse, how difficult was it to maintain your erection to completion of intercourse? 4-Slightly difficult 5) When you attempted sexual intercourse, how often is it satisfactory to you? 5-Almost always or always Total Score: 21 ? Bowel Health Inventory Current Status: 0-No problems, no rectal bleeding, no discharge, less then 5 bowel movements a day ?? Physical Exam Vitals and nursing note reviewed. Constitutional: Appearance: He is well-developed. HENT: Head: Normocephalic and atraumatic. Cardiovascular: Rate and Rhythm: Normal rate and regular rhythm. Heart sounds: Normal heart sounds. No murmur heard. Pulmonary: Effort: Pulmonary effort is normal. Breath sounds: Normal breath sounds. No wheezing or rales. Abdominal: General: Bowel sounds are normal. There is no distension. Palpations: Abdomen is soft. Tenderness: There is no abdominal tenderness. Genitourinary: Prostate: Enlarged ( Symmetric, 40 cc (previously 60 cc). Previously palpable firm nodule on the right lobe is no longer present. Seminal vesicles are nonpalpable.). Not tender and no nodules present. Rectum: No mass, tenderness, external hemorrhoid or internal hemorrhoid. Normal anal tone. Musculoskeletal: General: No tenderness. Normal range of motion. Cervical back: Normal range of motion and neck supple. Lymphadenopathy: Head: Right side of head: Submandibular ( 1 cm x 2 cm oval smooth nontender right jugulodigastric lymph node adjacent to submandibular gland) adenopathy present. Cervical: No cervical adenopathy. Upper Body: Right upper body: No supraclavicular adenopathy. Left upper body: No supraclavicular adenopathy. Skin: General: Skin is warm and dry. Neurological: Mental Status: He is alert and oriented to person, place, and time. Sensory: No sensory deficit. Psychiatric: Behavior: Behavior normal. Thought Content: Thought content normal. Judgment: Judgment normal. VITAL SIGNS: Vitals: 07/23/22 1112 BP: 150/74 Pulse: 64 Resp: 16 Temp: 97 ??F (36.1 ??C) SpO2: 98% Comment: RA Weight: 81.9 kg (180 lb 8 oz) Height: 182.9 cm (72 ) PainSc: 0-No pain KSP %: 80-90 The following portions of the patient's history were reviewed and updated as appropriate: allergies, current medications, past family history, past medical history, past social history, past surgicalhistory and problem list. Diagnoses and all orders for this visit: 1. Prostate cancer (HCC) (Primary) IMPRESSION: Prostate cancer, Kiersten's 3+4=7, clinical stage IIB (T2a, M0, M0), PSA 3.97 ng/mL. 7 months status post CyberKnife stereotactic body radiotherapy. He had appropriate early clinical response with downsizing of the prostate gland and resolution of previously palpable nodule. He has had an appropriate early biochemical response with PSA reduction into the mid normal range. Prognosis regarding his prostate cancer remains excellent. He has residual urinary outflow obstructive/irritative symptoms since discontinuing alpha-maria guadalupe. He has new right upper neck lymphadenopathy present for the past few months. Work-up is in progress. He had an ultrasound at outside facility. We do not have the results of that. He is scheduled to see ENT for evaluation. Hopefully this is a benign reactive lymph node; however, second primary neoplasm from head neck or primary lymphoma would be in the differential. This is highly unlikely to be related to his treated prostate cancer. RECOMMENDATIONS: He will continue urology surveillance under the care of Dr. Mina. He is plannedfor his next PSA in September 2022. I will continue annual follow-up with him until PSA is reached and he is clinically doing well. He will restart Flomax to see if his outflow urinary symptoms improved. Patient will notify us of the results of ENT evaluation. I spent a total of 25 minutes on todays visit, with more than 20 minutes in direct face to face communication, and the remainder of the time spent in reviewing the relevant history, records, available imaging, and for documentation. Return in about 1 year (around 07/23/2023) for Office Visit. Jann Callejas MD documented in this encounter Plan of Treatment Upcoming Encounters Date Type Department Care Team (Late st Contact Info) Description 08/22/2024 8:30 AM EST Office Visit [facility] [address] [place] [address] [place] [address] Manjit Gorman MD [address] [place] [address] [place] [address] 02/27/2025 9:00 AM EDT Office Visit [address] [place] [address] Manjit Gorman MD [address] [place] [address] [place] [address] documented as of this encounter Visit Diagnoses Diagnosis Prostate cancer- Primary Malignant neoplasm of prostate documented in this encounter Care Teams Warehouse Inventory Clerk Relationship Specialty Start Date End Date Manjit Gorman MD [facility] [place] [address] PCP - General Internal Medicine 09/18/21 documented as of this encounter
--- OUTSIDE RECORDS SUMMARY | 2024-07-27 06:50 | XMS_ITS | Encounter Summary ---
Author Organization [facility] Address [address] [place] [address] Care Team Providers Care Refinery Process Engineer Name Role Phone Manjit Gorman MD Primary Care Provider [phone] Encounter Details Date Type Department Care Team (Latest Contact Info) Description 12/13/2021 8:54 AM EDT - 12/13/2021 11:59 PM EDT Hospital Encounter [facility] [address] [facility] [address] [place] [phone] Discharge Disposition: Home or Self Care Social [...] Description 08/22/2024 8:30 AM EST Office Visit [address] [place] [phone] Manjit Gorman MD [address] [place] [address] [place] [address] 02/27/2025 9:00 AM EDT Office Visit [address] [place] [address] Manjit Gorman MD [address] [place] [address] [place] [address] documented as of this encounter Visit Diagnoses Not on filedocumented in this encounter Care Teams Refinery Process Engineer Relationship Specialty Start Date End Date Manjit Gorman MD [address] [place] [address] PCP - General Internal Medicine 09/18/21 documented as of this encounter
--- OUTSIDE RECORDS SUMMARY | 2024-07-27 06:50 | XMS_ITS | Encounter Summary ---
Author Organization [facility] Address [address] [place] [id number] Care Team Providers Care Loading Machine Adjuster Name Role Phone Manjit Gorman MD Primary Care Provider [phone] Reason for Visit * Reason Comments Fiduical Markers Encounter Details Date Type Department Care Team (Late st Contact Info) Description 11/04/2021 11:00 AM EST Procedure visit [facility] [address] [facility] [address] [place] [address] Pratik Teague MD [address] [facility] [address] [place] [address] Prostate cancer (Primary Dx) Social History Tobacco Use Types Packs/Day Years Used Date Smoking Tobacco: Never Smokeless Tobacco: Never Tobacco Cessation:Counseling Given: No Alcohol Use Standard Drinks/Week Comments Yes 1 (1 standard drink = 0.6 oz pur e alcohol) Sex and Gender Information Value Date Recorded Sex Assigned at Not on file Legal Sex Male 4:13 PM EST Gender Identity Not on file Sexual Orientation Not on file documented as of this encounter Last Filed Vital Signs Vital Sign Reading Time Taken Comments Blood Pressure - - Pulse 63 11/04/2021 11:01 AM EST Temperature - - Respiratory Rate - - Oxygen Saturation 96% 11/04/2021 11:01 AM EST Inhaled Oxygen Concentration - - Weight 85.7 kg (189 lb) 11/04/2021 11:01 AM EST Height 188 cm (6' 2.02 ) 11/04/2021 11:01 AM EST Body Mass Index 24.26 11/04/2021 11:01 AM EST documented in this encounter Progress Notes * Pratik Teague MD - 11/04/2021 11:00 AM ESTSummary: Urology Procedure Note Preprocedure diagnosis Prostate Cancer ?? Postprocedure diagnosis Prostate Cancer ?? Procedure 1. Transrectal Ultrasound Guided Placement of Gold Fiducial Markers 2. Total Number of Markers Placed:??6 ?? Attending surgeon Pratik Teague ?? Anesthesia 2% lidocaine injected unique-prostatic ? Complications None ?? Indications 71 year old male??with a history of prostate cancer. Patient??Plan to undergo CyberKnife therapy with Dr. Callejas.??He presents today for placement of gold fiducial marker to guide radiation therapy planning. ??Informed consent was reviewed and signed after discussion of risks, benefits, alternatives. ?? Findings Uncomplicated placement of 6 gold fiducial markers,??placement performed at left and right lateral base, left and right lateral apex,??left and right lateral mid gland.? Procedure The patient was identified, informed consent was reviewed and signed.??Confirmation that the??patient has been taking his preprocedure antibiotics??was completed. ??He was placed in the left lateral position, with knees to chest. ??The ultrasound probe was inserted into the patient's rectum. ??The prostate was identified. ??5 mL of 2% lidocaine was injected along the neurovascular bundle in the left side??and a similar?anesthetic injection was performed??on the left side. ??Starting within the left base of the prostate a marker was placed in the lateral portion of the prostate at??the base, mid, apex of the gland. Next, starting in the right??base of the prostate a marker was placed in the lateral portion of the prostate at??the base, mid, apex of the gland.?A total of??6??gold markers were used. ??No significant bleeding was encountered. ??The rectal probe was held in place for 3minutes to confirm hemostasis. ??The rectal probe was removed and there was no significant blood per rectum noted. ??The patient tolerated the procedure well denies significant pain or discomfort. ?? Follow Up: -F/u with Radiation Oncology as planned for radiation therapy planning -Return precautions discussed, including significant hematuria, significant blood per rectum, fevers, chills, nausea, vomiting. Patient was instructed to call my office or present to the nearest emergency department with these concerns. ?? documented in this encounter Plan of Treatment Upcoming Encounters Date Type Department Care Team (Late st Contact Info) Description 08/22/2024 8:30 AM EST Office Visit [address] [place] [address] Manjit Gorman MD [address] [place] [address] [place] [address] 02/27/2025 9:00 AM EDT Office Visit [address] [place] [address] Manjit Gorman MD [address] [place] [address] [place] [address] documented as of this encounter Procedures Procedure Name Priority Date/Time Associated Diagnosis Comments POCT URINALYSIS DIPSTICK, AUTOMATED Routine 11/04/2021 11:10 AM EST Prostate cancer documented in this encounter Results * POC Urinalysis Dipstick, Automated (11/04/2021 11:10 AM EST) Color Yellow Yellow, Straw, Dark Yellow, Jordana [facility] Clarity, UA Clear Clear [facility] Specific Belcher 1.025 1.005 - 1.030 [facility] pH, Urine 6.0 5.0 - 8.0 [facility] Leukocytes Negative Negative [facility] Nitrite, UA Negative Negative [facility] Protein, POC Negative Negative mg/dL [facility] Glucose, UA Negative Negative, 1000 mg/dL (3+) mg/dL [facility] Ketones, UA Negative Negative [facility] Urobilinogen, UA Normal Normal [facility] Bilirubin Negative Negative [facility] Blood, UA Negative Negative [facility] Lot Number [id number] [facility] Expiration Date 06/27/2023 [facility] Urine 11/04/2021 11:1 0 AM EST us Pratik Teague MD POINT OF CARE TEST ORDERABLES F inal Result [facility]
[address] [place] [address], documented in this encounter Visit Diagnoses Diagnosis Prostate cancer- Primary Malignant neoplasm of prostate documented in this encounter Care Teams Loading Machine Adjuster Relationship Specialty Start Date End Date Manjit Gorman MD [address] [place] [address] [place] [address] PCP - General Internal Medicine 09/18/21 documented as of this encounter
--- OUTSIDE RECORDS SUMMARY | 2024-07-27 06:50 | XMS_ITS | Encounter Summary ---
[facility] Organization [facility] Address [address] [place] [address] Care Team Providers Care Solid Propellant Processor Name Role Phone Manjit Gorman MD Primary Care Provider [phone] Encounter Details Date Type Department Care Team (Latest Contact Info) Description 12/12/2021 8:52 AM EDT - 12/12/2021 11:59 PM EDT Hospital Encounter [facility] [address] [facility] [address] [place] [id number] Discharge Disposition: Home or Self Care Social [...] Description 08/22/2024 8:30 AM EST Office Visit [address] [place] [address] Manjit Gorman MD [address] [place] [address] [place] [address] 02/27/2025 9:00 AM EDT Office Visit [address] [place] [address] Manjit Gorman MD [address] [place] [address] [place] [address] documented as of this encounter Visit Diagnoses Not on filedocumented in this encounter Care Teams Solid Propellant Processor Relationship Specialty Start Date End Date Manjit Gorman MD [address] [place] [address] PCP - General Internal Medicine 09/18/21 documented as of this encounter
--- OUTSIDE RECORDS SUMMARY | 2024-07-27 06:50 | XMS_ITS | Encounter Summary ---
Author Organization [facility] Address [address] [place] [address] Care Team Providers Care Mapping Specialist Name Role Phone Manjit Gorman MD Primary Care Provider [phone] Reason for Referral * Consultation (Routine) - Closed Specialty Diagnoses / Procedures Referred By Contac t Referred To Contact Urology Diagnoses Prostate cancer Jann Callejas MD [address] [place] [address] Phone: tel: fax: Pratik Teague MD [address] [address] Phone: tel: fax: Referral ID Status Reason Start Date Expiration Date V isits Requested Visits Authorized [id number] Closed Specialty Services Required 09/18/2021 09/18/2022 1 1 Reason for Visit * Reason Comments Prostate Cancer Encounter Details Date Type Department Care Team (Late st Contact Info) Description 09/18/2021 9:30 AM EST Office Visit [facility] [address] [place] [address] Jann Callejas MD [address] [place] [address] Prostate cancer (Primary Dx) Social History Tobacco [...] Sign Reading Time Taken Comments Blood Pressure 154/74 09/18/2021 9:31 AM EST Pulse 76 09/18/2021 9:31 AM EST Temperature 35.8 ??C (96.4 ??F) 09/18/2021 9:31 AM ES T Respiratory Rate 16 09/18/2021 9:31 AM EST Oxygen Saturation 97% 09/18/2021 9:31 AM EST RA Inhaled Oxygen Concentration - - Weight 86 kg (189 lb 8 oz) 09/18/2021 9:31 AM ES T Height 188 cm (6' 2 ) 09/18/2021 9:31 AM EST Body Mass Index 24.33 09/18/2021 9:31 AM EST documented in this encounter Progress Notes * Jann Callejas MD - 09/18/2021 9:30 AM EST CONSULTATION NOTE : 1950 DATE OF CONSULTATION: 09/18/2021 REQUESTING PHYSICIAN: Barry Mina MD REASON FOR CONSULTATION: Prostate cancer (HCC) - Stage IIB (cT2a, cN0, cM0, PSA: 4, Grade Group: 2) BRIEF HISTORY: The patient is a very pleasant 71 y.o. male with recently diagnosed prostate cancer. He was found to have an abnormal IZA on prostate exam performed by his primary care physician on 02/08/2021. There was a nodule noted in the right mid gland. PSA value 3.97 ng/mL on 02/11/2021. He has a history of melanoma resected from the left upper arm and basal cell cancer on the right upper arm. These are in remission. He is otherwise very healthy and active. He continues to work and certainly has a life expectancy much greater than 10 years. He was interested in pursuing work-up andtreatment if he was found to have prostate cancer. 4K score was 44% indicating risk of finding a significant prostate cancer. MRI pelvis revealed a 49 cc prostate gland. There were 3 separate PI-RADS 3 lesions identified. 1.6cm index lesion from the right mid gland peripheral zone correlated with palpable nodule. There wasa 0.9 cm index lesion in the right posterior apex and 0.6 cm index lesion in the left posterior apex. Abnormal T2 signal was identified in the pubic ramus and hips, most consistent with degenerative change. MRI fused biopsy was performed 07/01/2021. 5 out of 6 cores from the right anterior medial nodule contained prostatic adenocarcinoma, Kiersten's 3+4=7. Tumor involves 40% of submitted tissue samples. Samples of the right posterior lateral apex showed precancerous JR changes. Exam from the left posterior lateral apex showed benign prostate tissue. Nuclear Bone scan demonstrated degenerative changes throughout the spine, joints and symphysis but no definite evidence of metastatic prostate cancer. Chest x-ray was negative. Allergy: No Known Allergies Social History: Social History Socioeconomic History ??? Marital status: Tobacco Use ??? Smoking status: Never Smoker ??? Smokeless tobacco: Never Used Vaping Use ??? Vaping Use: Never used Substance and Sexual Activity ??? Alcohol use: Yes Alcohol/week: 1.0 standard drink Types: 1 Cans of beer per week ??? Drug use: Defer ??? Sexual activity: Defer Past Medical History: Past Medical History: Diagnosis Date ??? Hypertension ??? Prostate cancer (HCC) ??? Skin cancer Family History: family history includes Heart disease in his father and mother. Surgical History: Past Surgical History: Procedure Laterality Date ??? COLONOSCOPY 2017 good x 10years ??? PROSTATE BIOPSY ??? TONSILLECTOMY ??? VASECTOMY Review of Systems: Review of Systems HENT: Positive for hearing loss. Psychiatric/Behavioral: Nervous/anxious: IPSS Questionnaire (AUA-7): Over the past month??? 1) Incomplete Emptying How often have you had a sensation of not emptying your bladder? 0 - Not at all 2) Frequency How often have you had to urinate less than every two hours? 0 - Not at all 3) Intermittency How often have you found you stopped and started again several times when you urinated? 1 - Less than 1 time in 5 4) Urgency How often have you found it difficult to postpone urination? 1 - Less than 1 time in 5 5) Weak Stream How often have you had a weak urinary stream? 0 - Not at all 6) Straining How often have you had to push or strain to begin urination? 0 - Not at all 7) Nocturia How many times did you typically get up at night to urinate? 0 - None Total Score: 2 Quality of life due to urinary symptoms: If you were to spend the rest of your life with your urinary condition the way it is now, how wouldyou feel about that? 0-Delighted Urine Leakage (Incontinence) 0-No Leakage Sexual Health Inventory Current Status 1) How do you rate your confidence that you could achieve and keep an erection? 4-High 2) When you had erections with sexual stimulation, how often were your erections hard enough for penetration (entering your partner)? 5-Almost always or always 3) During sexual intercourse, how often were you able to maintain your erection after you had penetrated (entered) into your partner? 5-Almost always or always 4) During sexual intercourse, how difficult was it to maintain your erection to completion of intercourse? 4-Slightly difficult 5) When you attempted sexual intercourse, how often was it satisfactory to you? 5-Almost always or always Total Score: 23 Bowel Health Inventory Current Status: 0-No problems, no rectal bleeding, no discharge, less then 5 bowel movements a day Objective VITAL SIGNS: Vitals: 09/18/21 0931 BP: 154/74 Pulse: 76 Resp: 16 Temp: 96.4 ??F (35.8 ??C) SpO2: 97% Comment: RA Weight: 86 kg (189 lb 8 oz) Height: 188 cm (74 ) PainSc: 0-No pain Karnofsky score: 90 Physical Exam: Physical Exam Vitals and nursing note reviewed. Constitutional: Appearance: He is well-developed. HENT: Head: Normocephalic and atraumatic. Cardiovascular: Rate and Rhythm: Normal rate and regular rhythm. Heart sounds: Normal heart sounds. No murmur heard. Pulmonary: Effort: Pulmonary effort is normal. Breath sounds: Normal breath sounds. No wheezing or rales. Chest: Breasts: Right: No supraclavicular adenopathy. Left: No supraclavicular adenopathy. Abdominal: General: Bowel sounds are normal. There is no distension. Palpations: Abdomen is soft. Tenderness: There is no abdominal tenderness. Genitourinary: Prostate: Enlarged ( 60 cc, symmetrically enlarged with smooth surface but focal area of indurationof the right gland. Vascular nonpalpable.) and nodules present. Not tender. Rectum: No mass, tenderness, external hemorrhoid or internal hemorrhoid. Normal anal tone. Musculoskeletal: General: No tenderness. Normal range of motion. Cervical back: Normal range of motion and neck supple. Lymphadenopathy: Cervical: No cervical adenopathy. Upper Body: Right upper body: No supraclavicular adenopathy. Left upper body: No supraclavicular adenopathy. Skin: General: Skin is warm and dry. Neurological: Mental Status: He is alert and oriented to person, place, and time. Sensory: No sensory deficit. Psychiatric: Behavior: Behavior normal. Thought Content: Thought content normal. Judgment: Judgment normal. The following portions of the patient's history were reviewed and updated as appropriate: allergies, current medications, past family history, past medical history, past social history, past surgicalhistory and problem list. Assessment: Assessment Prostate cancer, Lamar's 3+4=7, clinical stage IIB (T2a, M0, M0), PSA 3.97 ng/mL. He has low intermediate risk disease identified in a palpable right lobe nodule which was also seenon MRI. Patient wishes to pursue definitive treatment of his prostate cancer rather than active surveillance. This is reasonable given the number of positive cores and tumor grade and otherwise very healthy and active individual. We reviewed the radiation treatment options of IMRT, SBRT and brachytherapy. All questions were answered. Patient would like to undergo stereotactic body radiotherapy. CyberKnife treatment procedure has been reviewed in detail. Informed consent was obtained. RECOMMENDATIONS: Gold seed fiducial placement will be arranged. Patient will subsequently return here for reevaluation, treatment planning CT and MRI. The prostate gland and proximal seminal vesicles will receive 5 daily fractions of 7 Wells each, delivered on CyberKnife. Patient would like to continue working 2 to 3 days/week and requests that his treatment began on a Thursday or to allow him over the weekend break to complete the following week and to maintain his work schedule. Follow Up: Return in about 19 days (around 10/07/2021) for Office Visit, Simulation. Diagnoses and all orders for this visit: 1. Prostate cancer (HCC) (Primary) - Ambulatory Referral to Urology Jann Callejas MD documented in this encounter Plan of Treatment Upcoming Encounters Date Type Department Care Team (Late st Contact Info) Description 08/22/2024 8:30 AM EST Office Visit [address] [place] [address] Manjit Gorman MD [address] [place] [address] [place] [address] 02/27/2025 9:00 AM EDT Office Visit [address] [place] [address] Manjit Gorman MD [address] [place] [address] [place] [address] Scheduled Referrals Name Type Priority Associated Diagnoses Order Schedule Ambulatory Referral to Urology Outpatient Referral Routine Prostate cancer Ordered: 09/18/2021 documented as of this encounter Visit Diagnoses Diagnosis Prostate cancer- Primary Malignant neoplasm of prostate documented in this encounter Care Teams Mapping Specialist Relationship Specialty Start Date End Date Manjit Gorman MD [address] [place] [address] [place] [address] PCP - General Internal Medicine 09/18/21 documented as of this encounter
--- OUTSIDE RECORDS SUMMARY | 2024-07-27 06:50 | XMS_ITS | Encounter Summary ---
[facility] Address [address] [place] [address] Care Team Providers Care Skein Dyer Name Role Phone Provider, No Known Primary Care Provider Unavail able Encounter Details Date Type Department Care Team (Late st Contact Info) Description 09/16/2021 Telephone [facility] [address] [place] [address] Lexis Kaufman Social History Tobacco Use Types Packs/Day Years Used Date Smoking Tobacco: Never Assessed Sex and Gender Information Value Date Recorded Sex Assigned at Not on file Legal Sex Male 4:13 PM EST Gender Identity Not on file Sexual Orientation Not on file documented as of this encounter Miscellaneous Notes * Telephone Encounter - Lexis Kaufman - 09/16/2021 2:09 PM ESTSummary: Radiation Oncology Appointment and outside films reminder-Non [id number] documented in this encounter Plan of Treatment Upcoming Encounters Date Type Department Care Team (Late st Contact Info) Description 08/22/2024 8:30 AM EST Office Visit [facility] [address] [place] [address] [place] [address] Manjit Gorman MD [address] [place] [address] [place] [address] 02/27/2025 9:00 AM EDT Office Visit [facility] [address] [place] [address] [place] [address] Manjit Gorman MD [address] [place] [address] [place] [address] documented as of this encounter Visit Diagnoses Not on filedocumented in this encounter Care Teams Skein Dyer Relationship Specialty Start Date End Date Provider, [place] [address] PCP - General 08/14/21 09/17/21 documented as of this encounter
--- OUTSIDE RECORDS SUMMARY | 2024-07-27 06:50 | XMS_ITS | Encounter Summary ---
Author Organization [facility] Address [address] [place] [id number] Care Team Providers Care Engine Monitor Name Role Phone Manjit Gorman MD Primary Care Provider [phone] Reason for Visit * Reason Onset Date Comments REFERRAL 06/16/2022 Encounter Details Date Type Department Care Team (Late st Contact Info) Description 06/16/2022 Telephone [facility] [address] [place] [address] [place] [address] Manjit Gorman MD [address] [place] [address] [place] [address] REFERRAL Social History Tobacco Use Types Packs/Day Years [...] encounter Miscellaneous Notes * Telephone Encounter - Sofia De Paz MA - 06/17/2022 11:29 AM EDT Called and spoke with patient and he advised me that he will make his own ENT appointment * Telephone Encounter - Manjit Gorman MD - 06/16/2022 7:12 PM EDT Please advise patient that we will have to see him in the office to formally diagnose his concern of difficulty swallowing before we can justify making a referral to an ENT. This has not been a concern that we have ever addressed before. An ENT is going to want some preceding information upon a referral from a primary care physician. He is certainly free to make his own appointment if he feels that he can do so without my intervention. * Telephone Encounter - Sofia De Paz MA - 06/16/2022 1:36 PM EDT Please advise * Telephone Encounter - Gavino Mackenzie RegSched Rep - 06/16/2022 1:22 PM EDT Caller: Erick Sierra Relationship: Self Best call back number:[phone] What is the medical concern/diagnosis: DISCOMFORT WHEN SWALLOWING What specialty or service is being requested: ENT What is the office location [place] documented in this encounter Plan of Treatment Upcoming Encounters Date Type Department Care Team (Late st Contact Info) Description 08/22/2024 8:30 AM EST Office Visit [facility] [place] [address] Manjit Gorman MD [address] [place] [address] 02/27/2025 9:00 AM EDT Office Visit [facility] [place] [id number] Manjit Gorman MD [address] [place] [address] documented as of this encounter Visit Diagnoses Not on filedocumented in this encounter Care Teams Engine Monitor Relationship Specialty Start Date End Date Manjit Gorman MD [address] [place] [address] PCP - General Internal Medicine 09/18/21 documented as of this encounter
--- OUTSIDE RECORDS SUMMARY | 2024-07-27 06:50 | XMS_ITS | Encounter Summary ---
Author Organization [facility] Address [address] [place] [id number] Care Team Providers Care Accounting Professor Name Role Phone Manjit Gorman MD Primary Care Provider [phone] Reason for Visit * Reason Comments Prostate Cancer Encounter Details Date Type Department Care Team (Late st Contact Info) Description 11/12/2021 9:30 AM EST Office Visit [facility] [address] [place] [id number] Jann Callejas MD [address] [place] [address] Prostate cancer (Primary Dx) Social History Tobacco [...] Sign Reading Time Taken Comments Blood Pressure 161/79 11/12/2021 9:29 AM EST Pulse 112 11/12/2021 9:29 AM EST Temperature 36.2 ??C (97.1 ??F) 11/12/2021 9:29 AM ES T Respiratory Rate 20 11/12/2021 9:29 AM EST Oxygen Saturation 97% 11/12/2021 9:29 AM EST Inhaled Oxygen Concentration - - Weight 85.3 kg (188 lb) 11/12/2021 9:29 AM EST Height - - Body Mass Index 24.13 11/04/2021 11:01 AM EST documented in this encounter Progress Notes * Jann Callejas MD - 11/12/2021 9:30 AM EST RE-EVALUATION PATIENT: Erick Sierra : 1950 DATE: 11/12/2021 DIAGNOSIS: Prostate cancer (HCC) - Stage IIB (cT2a, cN0, cM0, PSA: 4, Grade Group: 2) BRIEF HISTORY: The patient is a very pleasant 71 y.o. male with low intermediate risk prostate cancer. He underwent gold seed fiducial placement performed by Dr. Teague with no significant procedure-related pain or difficulty. Urinary voiding has been unchanged. Bowel function is regular. We have verified that his last colonoscopy performed in March 2017 showedno polyps and he is not due for another colonoscopy until 2026. He returns today for simulation in preparation for stereotactic body radiotherapy. Informed consent was obtained on 09/18/2021 and he remains a good candidate for SBRT. No Known Allergies Review of Systems All other systems reviewed [...] urinate? 0 - None Total Score: 2 ? Quality of life due to urinary symptoms: If you were to spend the rest of your life with your urinary condition the way it is now, how wouldyou feel about that? 0-Delighted Urine Leakage (Incontinence) 0-No Leakage ?? Sexual [...] 5-Almost always or always Total Score: 23 ? Bowel Health Inventory Current Status: 0-No problems, no rectal bleeding, no discharge, less then 5 bowel movements a day ?? Objective VITAL SIGNS: Vitals: 11/12/21 0929 BP: 161/79 Pulse: 112 Resp: 20 Temp: 97.1 ??F (36.2 ??C) TempSrc: Temporal SpO2: 97% Weight: 85.3 kg (188 lb) PainSc: 0-No pain KSP %: 90 Physical Exam Constitutional: Appearance: Normal appearance. HENT: Head: Normocephalic and atraumatic. Cardiovascular: Rate and Rhythm: Normal rate and regular rhythm. Pulmonary: Effort: Pulmonary effort is normal. Musculoskeletal: General: Normal range of motion. Neurological: General: No focal deficit present. Mental Status: He is alert and oriented to person, place, and time. Psychiatric: Mood and Affect: Mood normal. Behavior: Behavior normal. Thought Content: Thought content normal. Judgment: Judgment normal. The following portions of the patient's history were reviewed and updated as appropriate: allergies, current medications, past family history, past medical history, past social history, past surgicalhistory and problem list. Diagnoses and all orders for this visit: Prostate cancer (HCC) Other orders - tamsulosin (FLOMAX) 0.4 MG capsule 24 hr capsule; Take 1 capsule by mouth Every Night. IMPRESSION: Prostate cancer, [place]'s 3+4=7, clinical stage IIB (T2a, M0, M0), PSA 3.97 ng/mL. He tolerated gold seed fiducial placement very well. He is ready to begin treatment planning for stereotactic body radiotherapy. RECOMMENDATIONS: He will undergo CT simulation and MRI pelvis today. The prostate gland and proximal seminal vesicles will receive 5 daily fractions of 7 Wells each, delivered on the FlipasteKnife, starting on a Thursday or to overlap over a weekend. This schedule will allow him to continue working part-time. Jann Callejas MD Total of 15 minutes was spent during this visit, 10 minutes directly with patient answering questions and reviewing treatment procedure. documented in this encounter Plan of Treatment Upcoming Encounters Date Type Department Care Team (Late st Contact Info) Description 08/22/2024 8:30 AM EST Office Visit [facility] [address] [place] [address] [place] [address] Manjit Gorman MD [address] [place] [address] [place] [address] 02/27/2025 9:00 AM EDT Office Visit [address] [place] [address] Manjit Gorman MD [address] [place] [address] [place] [address] documented as of this encounter Visit Diagnoses Diagnosis Prostate cancer- Primary Malignant neoplasm of prostate documented in this encounter Care Teams Accounting Professor Relationship Specialty Start Date End Date Manjit Gorman MD [address] [place] [address] [place] [address] PCP - General Internal Medicine 09/18/21 documented as of this encounter
--- OUTSIDE RECORDS SUMMARY | 2024-07-27 06:50 | XMS_ITS | Encounter Summary ---
Author Organization [facility] Address [address] [place] [address] Care Team Providers Care Refinery Technician Name Role Phone Manjit Gorman MD Primary Care Provider [phone] Encounter Details Date Type Department Care Team (Latest Contact Info) Description 12/17/2021 8:55 AM EDT - 12/17/2021 11:59 PM EDT Hospital Encounter [facility] [address] [facility] [address] [place] [phone] Discharge Disposition: Home or Self Care Social [...] Description 08/22/2024 8:30 AM EST Office Visit [address] [place] [address] Manjit Gorman MD [address] [place] [address] [place] [address] 02/27/2025 9:00 AM EDT Office Visit [address] [place] [address] Manjit Gorman MD [address] [place] [address] [place] [address] documented as of this encounter Visit Diagnoses Not on filedocumented in this encounter Care Teams Refinery Technician Relationship Specialty Start Date End Date Manjit Gorman MD [address] [place] [address] PCP - General Internal Medicine 09/18/21 documented as of this encounter
--- OUTSIDE RECORDS SUMMARY | 2024-07-27 06:50 | XMS_ITS | Encounter Summary ---
Author Organization [facility] Address [address] [place] [address] Care Team Providers Care Waxer Operator Name Role Phone Manjit Gorman MD Primary Care Provider [phone] Encounter Details Date Type Department Care Team (Latest Contact Info) Description 11/12/2021 9:54 AM EST - 11/12/2021 11:59 PM EST Hospital Encounter [facility] [address] [facility] [address] [place] [address] Discharge Disposition: Home or Self Care Social [...] Description 08/22/2024 8:30 AM EST Office Visit [facility] [address] [place] [address] Manjit Gorman MD [address] [place] [address] [place] [address] 02/27/2025 9:00 AM EDT Office Visit [address] [place] [address] Manjit Gorman MD [address] [place] [address] [place] [address] documented as of this encounter Visit Diagnoses Not on filedocumented in this encounter Care Teams Waxer Operator Relationship Specialty Start Date End Date Manjit Gorman MD [address] [place] [address] [place] [address] PCP - General Internal Medicine 09/18/21 documented as of this encounter
--- OUTSIDE RECORDS SUMMARY | 2024-07-27 06:50 | XMS_ITS | Encounter Summary ---
Author Organization [facility] Address [address] [place] [address] Care Team Providers Care Plaster Whittler Name Role Phone Manjit Gorman MD Primary Care Provider [phone] Encounter Details Date Type Department Care Team (Latest Contact Info) Description 12/11/2021 10:04 AM EDT - 12/11/2021 11:59 PM EDT Hospital Encounter [facility] [address] [facility] [address] [place] [phone] Discharge Disposition: Home or Self Care Social [...] Description 08/22/2024 8:30 AM EST Office Visit [address] [place] [address] Manjit Gorman MD [address] [place] [address] [place] [address] 02/27/2025 9:00 AM EDT Office Visit [address] [place] [address] Manjit Gorman MD [address] [place] [address] [place] [address] documented as of this encounter Visit Diagnoses Not on filedocumented in this encounter Care Teams Plaster Whittler Relationship Specialty Start Date End Date Manjit Gorman MD [address] [place] [address] PCP - General Internal Medicine 09/18/21 documented as of this encounter
--- OUTSIDE RECORDS SUMMARY | 2024-07-27 06:50 | XMS_ITS | Encounter Summary ---
Author Organization [facility] Address [address] [place] [address] Care Team Providers Care Sweeper Driver Name Role Phone Manjit Gorman MD Primary Care Provider [phone] Reason for Visit * Auth/Cert Specialty Diagnoses / Procedures Referred By Contac t Referred To Contact Diagnoses Malignant neoplasm of prostate Procedures CHG RADN RX DELIV,BODY, EACH FRACTION Referral ID Status Reason Start Date Expiration Date Visits Re quested Visits Authorized [id number] 1 Encounter Details Date Type Department Care Team (Latest Contact Info) Description 12/11/2021 6:00 AM EDT - 12/11/2021 11:59 PM EDT Hospital Encounter [facility] [address] [facility] [address] [place] [address] Discharge Disposition: Home or Self [...] Description 08/22/2024 8:30 AM EST Office Visit [facility] [address] [place] [address] Manjit Gorman MD [address] [place] [address] [place] [address] 02/27/2025 9:00 AM EDT Office Visit [address] [place] [address] Manjit Gorman MD [address] [place] [address] [place] [address] documented as of this encounter Visit Diagnoses Not on filedocumented in this encounter Care Teams Sweeper Driver Relationship Specialty Start Date End Date Manjit Gorman MD [address] [place] [address] PCP - General Internal Medicine 09/18/21 documented as of this encounter
--- OUTSIDE RECORDS SUMMARY | 2024-07-27 06:50 | XMS_ITS | Encounter Summary ---
Author Organization [facility] Address [address] [place] [address] Care Team Providers Care Heat Sealing Machine Operator Name Role Phone Manjit Gorman MD Primary Care Provider [phone] Reason for Visit * Reason Comments Prostate Cancer Encounter Details Date Type Department Care Team (Late st Contact Info) Description 01/17/2022 9:30 AM EDT Office Visit [facility] [address] [place] [phone] Prieto Orozco, RESEARCH COORDINATOR [address] [place] [address] Prostate cancer (Primary Dx) Social History Tobacco [...] as of this encounter Progress Notes * Prieto Orozco, RESEARCH COORDINATOR - 01/17/2022 9:30 AM EDT TELEMEDICINE FOLLOW UP NOTE PATIENT: Erick Sierra : 1950 COMPLETION DATE: 12/17/2021 DIAGNOSIS: Prostate cancer (HCC) - Stage IIB (cT2a, cN0, cM0, PSA: 4, Grade Group: 2) This visit has been converted to a telehealth virtual visit. Total time of discussion was 22 minutes. The patient has given verbal consent. COVID-19 RISK SCREEN 1. Has the patient had close contact or exposure without PPE with a lab confirmed COVID-19 (+) person or a person under investigation (PUI) for COVID-19 infection? -- No 2. Has the patient had respiratory symptoms, worsened/new cough and/or SOA, unexplained fever, or sudden loss of smell and/or taste in the past week? -- No 3. Has the patient completed COVID vaccination? -- Yes BRIEF HISTORY: Initial follow-up visit for low intermediate risk prostate cancer. He underwent definitive treatment with CyberKnife SBRT. He tolerated treatment well. He developed very mild fatigue, which was brief. He reports brief duration of dysuria, which was managed with OTC Azo. He also reports exacerbation of urinary frequency, urgency, and nocturia x1 which are slowly improving. He continues on nightly Flomax. He reports increased fecal urgency and frequency, similarly improving. He notes consistency of stool is normal, formed. He reports erections are overall less firm, but is otherwise satisfied with erectile function. He continues lonstanding use of sildenafil 100 mg as needed with good effect. Overall, he feels well. IPSS Questionnaire (AUA-7): Over the past month??? [...] 1 - 1 time Total Score: 8 Quality of life due to urinary symptoms: If you were to spend the rest of your life with your urinary condition the way it is now, how wouldyou feel about that? 2-Mostly Satisfied Urine Leakage (Incontinence) 0-No Leakage Sexual Health [...] 5-Almost always or always Total Score: 21 Bowel Health Inventory Current Status: 0-No problems, no rectal bleeding, no discharge, less then 5 bowel movements a day MEDICATIONS: Medication reconciliation for the patient was reviewed and confirmed in the electronicmedical record. Review of Systems Gastrointestinal: + fecal frequency, urgency Genitourinary: Positive for frequency and nocturia. All other systems reviewed and are negative. KPS 90% Physical Exam Pulmonary: Respirations even, unlabored. No audible wheezing or cough. Neurological: A+Ox4, conversant, answers questions appropriately. Psychiatric: Judgement, affect, and decision-making WNL. Limited physical exam as visit was conducted remotely via telephone in light of the COVID-19 pandemic. The following portions of the patient's history were reviewed and updated as appropriate: allergies, current medications, past family history, past medical history, past social history, past surgicalhistory and problem list. Diagnoses and all orders for this visit: 1. Prostate cancer (HCC) (Primary) IMPRESSION: Prostate cancer, [place]'s 3+4=7, clinical stage IIB??(T2a, M0, M0), PSA 3.97 ng/mL. 1 month status post CyberKnife SBRT. He tolerated treatment well. Anticipated acute grade 1 urinary and bowel toxicities continue to subside. We discussed plan to taper/discontinue Flomax, as tolerated. Mr. Sierra and I have reviewed the survivorship care plan in detail. We discussed diagnosis, follow-up intervals, PSA monitoring, and expectations for response to treatment. A copy of the care plan has been mailed to the patient. A copy has also been sent to his PCP. RECOMMENDATIONS: Mr. Sierra continues urologic surveillance under the care of Dr. Bart Mina, with follow-up and repeat PSA scheduled March 2022. I spent a total of 35 minutes on today's visit, with more than 22 minutes in virtual communication with the patient via telephone, and the remainder of the time spent in reviewing the relevant history, records, available imaging, and for documentation. Return in about 6 months (around 07/20/2022) for Office Visit. Prieto Orozco APRN documented in this encounter Plan of Treatment Upcoming Encounters Date Type Department Care Team (Late st Contact Info) Description 08/22/2024 8:30 AM EST Office Visit [facility] [address] [place] [address] [place] [address] Manjit Gorman MD [address] [place] [address] [place] [address] 02/27/2025 9:00 AM EDT Office Visit [facility] [address] [place] [address] Manjit Gorman MD [address] [place] [address] [place] [address] documented as of this encounter Visit Diagnoses Diagnosis Prostate cancer- Primary Malignant neoplasm of prostate documented in this encounter Care Teams Heat Sealing Machine Operator Relationship Specialty Start Date End Date Manjit Gorman MD [address] [place] [address] PCP - General Internal Medicine 09/18/21 documented as of this encounter
--- OUTSIDE RECORDS SUMMARY | 2024-07-27 06:50 | XMS_ITS | Encounter Summary ---
Author Organization [facility] Address [address] [place] [id number] Care Team Providers Care Optical Mechanic Apprentice Name Role Phone Manjit Gorman MD Primary Care Provider [phone] Encounter Details Date Type Department Care Team (Late st Contact Info) Description 04/17/2022 Telephone [facility] [address] [place] [address] [place] [address] Manjit Gorman MD [address] [place] [address] [place] [address] Social History Tobacco Use Types Packs/Day [...] encounter Miscellaneous Notes * Telephone Encounter - Manjit Gorman MD - 04/17/2022 5:28 PM EDT Notified patient via telephone of his very satisfactory test results obtained yesterday including CBC with normalization of his white count, and a BMP with improvement in satisfactory renal function.No further interventions required at this time. documented in this encounter Plan of Treatment Upcoming Encounters Date Type Department Care Team (Late st Contact Info) Description 08/22/2024 8:30 AM EST Office Visit [facility] [address] [place] [address] [place] [address] Manjit Gorman MD [address] [place] [address] 02/27/2025 9:00 AM EDT Office Visit [facility] [address] [place] [address] Manjit Gorman MD [address] [place] [address] [place] [address] documented as of this encounter Visit Diagnoses Not on filedocumented in this encounter Care Teams Optical Mechanic Apprentice Relationship Specialty Start Date End Date Manjit Gorman MD [address] [place] [address] PCP - General Internal Medicine 09/18/21 documented as of this encounter
--- OUTSIDE RECORDS SUMMARY | 2024-07-27 06:50 | XMS_ITS | Encounter Summary ---
Author Organization [facility] Address [address] [place] [address] Care Team Providers Care Traffic Law Attorney Name Role Phone Manjit Gorman MD Primary Care Provider [phone] Encounter Details Date Type Department Care Team (Latest Contact Info) Description 07/23/2022 5:35 AM EST - 07/23/2022 11:59 PM [facility] Hospital Encounter [facility] [facility] [address] [facility] [address] [place] [address] Discharge Disposition: Home or Self Care Social [...] BY MOUTH DAILY NEEDED FOR ED 04/15/2022 amLODIPine-benaze pril (LOTREL 2.5-10) 2.5-10 MG per capsule 07/11/2021 10/02/2022 terbinafine (lamiSIL) 250 MG tablet 09/17/2021 02/19/2023 documented as of this encounter Plan of Treatment Upcoming Encounters Date Type Department Care Team (Late st Contact Info) Description 08/22/2024 8:30 AM EST Office Visit [facility] [address] [place] [address] Manjit Gorman MD [address] [place] [address] [place] [address] 02/27/2025 9:00 AM EDT Office Visit [address] [place] [address] Manjit Gorman MD [address] [place] [address] [place] [address] documented as of this encounter Visit Diagnoses Not on filedocumented in this encounter Care Teams Traffic Law Attorney Relationship Specialty Start Date End Date Manjit Gorman MD [address] [place] [address] [place] [address] PCP - General Internal Medicine 09/18/21 documented as of this encounter
--- OUTSIDE RECORDS SUMMARY | 2024-07-27 06:50 | XMS_ITS | Encounter Summary ---
Author Organization [facility] Address [address] [place] [address] Care Team Providers Care Electric Detector Operator Name Role Phone Manjit Gorman MD Primary Care Provider [phone] Reason for Visit * Reason Comments Follow-up Encounter Details Date Type Department Care Team (Late st Contact Info) Description 04/15/2022 4:00 PM EDT Office Visit [facility] [address] [place] [address] [place] [phone] Manjit Gorman MD [address] [place] [address] [place] [address] Other male erectile dysfunction (Primary Dx); Other neutropenia; Chronic kidney disease (CKD) stage G3a/A1, moderately decreased glomerular filtration rate (GFR) between 45-59 mL/min/1.73 square meter and albuminuria creatinine ratio less than 30 mg/g (CMS/H* Social History Tobacco Use Types Packs/Day Years [...] Sign Reading Time Taken Comments Blood Pressure 154/80 04/15/2022 4:02 PM EDT Pulse 68 04/15/2022 4:02 PM EDT Temperature 36.6 ??C (97.9 ??F) 04/15/2022 4:02 PM ED T Respiratory Rate 12 04/15/2022 4:02 PM EDT Oxygen Saturation 98% 04/15/2022 4:02 PM EDT Inhaled Oxygen Concentration - - Weight 85.3 kg (188 lb) 04/15/2022 4:02 PM EDT Height 182.9 cm (6') 04/15/2022 4:02 PM EDT Body Mass Index 25.5 04/15/2022 4:02 PM EDT documented in this encounter Progress Notes * Manjit Gorman MD - 04/15/2022 4:00 PM EDT Images from the original note were not included. Follow Up Office Visit Date: 04/15/2022 Patient Name: Erick Sierra : 1950 Chief Complaint: Chief Complaint Patient presents with ??? Follow-up History of Present Illness: Erick Sierra is a 71 y.o. male who is here today for evaluation of erectile dysfunction. Patient is status post CyberKnife treatment for localized prostate cancer in 12/2021, by Dr. Bart Mina. Patient historically has had good clinical response to Viagra, but notes over the last couple uses, he has had suboptimal erections inadequate for intercourse. No other acute problems at this time. He does require follow-up CBC given his neutropenia noted on testing in 02/2022, and also repeat renal function noting he had a slight decrease in his renal function.. Subjective Review of Systems: Review of Systems I have reviewed the patients family history, social history, past medical history, past surgical history and have updated it as appropriate. Medications: Current Outpatient Medications: ??? amLODIPine-benazepril (LOTREL 2.5-10) 2.5-10 MG per capsule, , Disp: , Rfl: ??? multivitamin with minerals tablet tablet, Take 1 tablet by mouth Daily., Disp: , Rfl: ??? terbinafine (lamiSIL) 250 MG tablet, , Disp: , Rfl: ??? tadalafil (Cialis) 10 MG tablet, Take 1 tablet by mouth Daily As Needed for Erectile Dysfunction. Take 1 to 2 tablets once daily as needed for erectile dysfunction, Disp: 15 tablet, Rfl: 3 Allergies: No Known Allergies Objective Physical Exam: Please see above Vital Signs: Vitals: 04/15/22 1602 BP: 154/80 Pulse: 68 Resp: 12 Temp: 97.9 ??F (36.6 ??C) SpO2: 98% Weight: 85.3 kg (188 lb) Height: 182.9 cm (72 ) Body mass index is 25.5 kg/m??. BMI is >= 25 and <30. (Overweight) The following options were offered after discussion;: none(medical contraindication) Physical Exam General: Tall slender healthy middle-aged appearing white male in no acute distress. Very physically fit appearing for his age. exam reveals normal circumcised male with testes descended bilaterally, no nodules or tenderness, mild testicular atrophy unremarkable for age, no inguinal herniation or adenopathy, 2+ femoral pulses without bruits Procedures Results: Labs: No results found for: HGBA1C, CMP, CBCDIFFPANEL, CREAT, TSH Imaging: No valid procedures specified. Assessment / Plan Assessment/Plan: Diagnoses and all orders for this visit: 1. Other male erectile dysfunction (Primary) - Discontinue: vardenafil (Levitra) 10 MG tablet; Take 1 tablet by mouth Daily As Needed for Erectile Dysfunction. 1 to 2 tablets (10 to 20 mg) once daily as needed for erectile dysfunction Dispense:15 tablet; Refill: 1 - tadalafil (Cialis) 10 MG tablet; Take 1 tablet by mouth Daily As Needed for Erectile Dysfunction.Take 1 to 2 tablets once daily as needed for erectile dysfunction Dispense: 15 tablet; Refill: 3 Trial of Cialis 10 mg once daily, titrating up to 2 tablets or 20 mg as needed, and if has good clinical response on the lower dose may reduce down to half tablet daily as needed. If this is not beneficial, patient has been advised to contact me for referral or may directly contact Dr. Bart Mina of urology for further evaluation and anticipated Trimix injections. 2. Other neutropenia (HCC) - CBC & Differential; Future Repeat CBC differential 3. Chronic kidney disease (CKD) stage G3a/A1, moderately decreased glomerular filtration rate (GFR)between 45-59 mL/min/1.73 square meter and albuminuria creatinine ratio less than 30 mg/g (CMS/H* (HCC) - Basic Metabolic Panel; Future Repeat BMP. Follow Up: Return for Labs today. At [facility], we believe that sharing information builds trust and better relationships. You are receiving this note because you recently visited [facility]. It is possible you will see health information before a provider has talked with you about it. This kind of information can be easy to misunderstand. To help you fully understand what it means for your health, we urge you to discussthis note with your provider. Manjit Gorman MD [facility] Jania documented in this encounter Plan of Treatment Upcoming Encounters Date Type Department Care Team (Late st Contact Info) Description 08/22/2024 8:30 AM EST Office Visit [facility] [address] [place] [address] [place] [phone] Manjit Gorman MD [address] [place] [address] [place] [id number] 02/27/2025 9:00 AM EDT Office Visit [facility] [address] [place] [phone] Manjit Gorman MD [address] [place] [address] [place] [phone] documented as of this encounter Procedures Procedure Name Priority Date/Time Associated Diagnosis Comments CBC AND DIFFERENTIAL Routine 04/15/2022 5:05 PM EDT Other neutropenia BASIC METABOLIC PANEL Routine 04/15/2022 5:05 PM EDT Chronic kidney disease (CKD) stage G3a/A1, moderately decreased glomerular filtration rate (GFR) between 45-59 mL/min/1.73 square meter and albuminuria creatinine ratio less than 30 mg/g (CMS/H* documented in this encounter Results * (ABNORMAL) Basic Metabolic Panel (04/15/2022 5:05 PM EDT) Glucose 102(H) 65 - 99 mg/dL [facility] BUN 23 8 - 27 mg/dL [facility] Creatinine 1.23 0.76 - 1.27 mg/dL [facility] EGFR Result 63 >59 mL/min/1.7 3 [facility] BUN/Creatinine Ratio 19 10 - 24 [facility] Sodium 144 134 - 144 mmol/L [facility] Potassium 5.0 3.5 - 5.2 mmol/L [facility] Chloride 107(H) 96 - 106 mmol/L [facility] Total CO2 21 20 - 29 mmol/L [facility] Calcium 9.5 8.6 - 10.2 mg/dL [facility] Blood 04/15/2022 5:05 PM EDT 04/16/2022 Comment:Blood Release to mariah Jefferson [facility] ([facility]) - 04/17/2022 9:07 AM EDT Performed at: ??[address] ??[id number] Residence Leasing Agent: Toby Rosario PhD, Phone: ??[phone] Manjit Gorman MD LAB BLOOD ORDERABLES Final Res ult [facility] (AMBULATORY) [address] [place] [address], [facility] [address] [place] [address], * CBC & Differential (04/15/2022 5:05 PM EDT) WBC 5.6 3.4 - 10.8 x10E3/uL [facility] Comment: Inadequately filled tube received. ??Whole blood to anticoagulant ratio may adversely affect results. RBC 4.82 4.14 - 5.80 x10E6/uL [facility] Hemoglobin 15.0 13.0 - 17.7 g/dL [facility] Hematocrit 43.4 37.5 - 51.0 % [facility] MCV 90 79 - 97 fL [facility] MCH 31.1 26.6 - 33.0 pg [facility] MCHC 34.6 31.5 - 35.7 g/dL [facility] RDW 13.0 11.6 - 15.4 % [facility] Platelets 258 150 - 450 x10E3/uL [facility] Neutrophil Rel % 61 Not Estab. % [facility] Lymphocyte Rel % 24 Not Estab. % [facility] Monocyte Rel % 11 Not Estab. % [facility] Eosinophil Rel % 2 Not Estab. % [facility] Basophil Rel % 1 Not Estab. % [facility] Neutrophils Absolute 3.4 1.4 - 7.0 x10E3/uL [facility] Lymphocytes Absolute 1.4 0.7 - 3.1 x10E3/uL [facility] Monocytes Absolute 0.6 0.1 - 0.9 x10E3/uL [facility] Eosinophils Absolute 0.1 0.0 - 0.4 x10E3/uL [facility] Basophils Absolute 0.1 0.0 - 0.2 x10E3/uL [facility] Immature Granulocyte Rel % 1 Not Estab. % [facility] Immature Grans Absolute 0.0 0.0 - 0.1 x10E3/uL [facility] Blood 04/15/2022 5:05 PM EDT 04/16/2022 Comment:Blood Release to [facility] ([facility]) - 04/17/2022 9:07 AM EDT Performed at: ??01 - [facility] [address] ??[id number] Residence Leasing Agent: Toby Rosario PhD, Phone: ??[phone] us Manjit Gorman MD LAB BLOOD ORDERABLES Final Res ult [facility] ([facility]) [address] [place] [address], [place] [phone] [facility] [address] [place] [address], [place] [phone] documented in this encounter Visit Diagnoses Diagnosis Other male erectile dysfunction- Primary Other neutropenia Chronic kidney disease (CKD) stage G3a/A1, moderately decreased glomerular filtration rate (GFR) between 45-59 mL/min/1.73 square meter and albuminuria creatinine ratio less than 30 mg/g (CMS/H* documented in this encounter Care Teams Electric Detector Operator Relationship Specialty Start Date End Date Manjit Gorman MD [address] [place] [address] PCP - General Internal Medicine 09/18/21 documented as of this encounter
--- OUTSIDE RECORDS SUMMARY | 2024-07-27 06:50 | XMS_ITS | Encounter Summary ---
Author Organization [facility] Address [address] [place] [address] Care Team Providers Care Magistrate Judge Name Role Phone Lalita Wilson MD Primary Care Provider [phone] Reason for Visit * Reason Onset Date Comments ED - Called Back For Treatment Only 04/09/2022 Encounter Details Date Type Department Care Team (Late st Contact Info) Description 04/09/2022 Telephone [facility] [address] [place] [address] [place] [phone] Lalita Wilson MD [address] [place] [id number] ED - Called Back For Treatment Only Social History Tobacco Use Types Packs/Day Years [...] encounter Miscellaneous Notes * Telephone Encounter - Tamanna Hernández - 04/10/2022 8:57 AM EDT I have spoke with Mr. Sierra and he is scheduling an appt for next week. TF * Telephone Encounter - Lalita Wilson MD - 04/09/2022 3:01 PM EDT Please have patient's schedule follow-up visit for concerns regarding his medication. * Telephone Encounter - Sofia De Paz MA - 04/09/2022 10:10 AM EDT Called and spoke with patient and he states that his PSA is down from 4-2.5. Also states that Sildenafil 100mg is not working and would like for you to call him back. Or would you like for me to schedule her appointment ? * Telephone Encounter - Arabella Henderson RegSched Rep - 04/09/2022 9:36 AM EDT Caller: Erick Sierra Relationship: Self Best call back number: [phone] What is the best time to reach you: Who are you requesting to speak with (clinical staff, provider, specific staff member): DR LALITA WILSON What was the call regarding: TEST RESULTS AND MEDICATION documented in this encounter Plan of Treatment Upcoming Encounters Date Type Department Care Team (Late st Contact Info) Description 08/22/2024 8:30 AM EST Office Visit [facility] [address] [place] [address] [place] [phone] Lalita Wilson MD [address] [place] [address] [place] [address] 02/27/2025 9:00 AM EDT Office Visit [facility] [place] [phone] Lalita Wilson [facility] [place] [address] documented as of this encounter Visit Diagnoses Not on filedocumented in this encounter Care Teams Magistrate Judge Relationship Specialty Start Date End Date Lalita Wilsno MD [address] [place] [id number] PCP - General Internal Medicine 09/18/21 documented as of this encounter
--- OUTSIDE RECORDS SUMMARY | 2024-07-27 06:50 | XMS_ITS | Encounter Summary ---
Author Organization [facility] Address [address] [place] [id number] Care Team Providers Care Test Carrier Name Role Phone Manjit Gorman MD Primary Care Provider [phone] Encounter Details Date Type Department Care Team (Late st Contact Info) Description 07/10/2022 Patient rounding ([facility]) [facility] [address] [place] [address] [place] [phone] Sissy Duarte Social History Tobacco Use Types Packs/Day Years [...] as of this encounter Progress Notes * Sissy Duarte - 07/10/2022 10:42 AM EDTSummary: rounding .A [employer] message has been sent to the patient for patient rounding with [facility]. documented in this encounter Plan of Treatment Upcoming Encounters Date Type Department Care Team (Late st Contact Info) Description 08/22/2024 8:30 AM EST Office Visit [facility] [address] [place] [address] [place] [phone] Manjit Gorman MD [address] [place] [address] 02/27/2025 9:00 AM EDT Office Visit [facility] [address] [place] [phone] Manjit Gorman MD [address] [place] [address] documented as of this encounter Visit Diagnoses Not on filedocumented in this encounter Care Teams Test Carrier Relationship Specialty Start Date End Date Manjit Gorman MD [address] [place] [address] PCP - General Internal Medicine 09/18/21 documented as of this encounter
--- OUTSIDE RECORDS SUMMARY | 2024-07-27 06:50 | XMS_ITS | Clinical Summary ---
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 Active tadalafil (Cialis) 5 MG tablet TAKE 1 OR 2 TABLETS BY MOUTH DAILY NEEDED FOR ED 04/15/20 Active amLODIPine-anahi azepril (Lotrel) 2.5-10 MG capsule Take 1 capsule by mouth every night. Active BLACK ELDERBERRY PO Take 1 tablet by mouth every night. Active dexamethasone (Decadron) 4 MG tabletIndicati ons:Cancer of base of tongue (CMS/HCC) Take 2 tablets (8 mg total) by mouth 1 (one) time each day. 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 Cancer Staging:Clinical stage from 10/29/2022:Stage I(cT2, cN1, cM0, p16+) - Signed by Germaine Alejandro MD on 11/10/2022 Second hand smoke exposure 10/21/2022 Prostate cancer 09/23/2022 Allergic rhinitis due to pollen 04/15/2022 Benign lipomatous neoplasm o f skin and subcutaneous tissue of trunk 04/15/2022 Bilateral elbow fractures 04/15/2022 Overview (09/23/2022): AT DIFFERENT TIMES IN HIS 20s POSTRAUMATIC Cramp and spasm 04/15/2022 Dysplastic nevus 04/15/2022 Overview (09/23/2022): 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 Erectile dysfunction 04/15/2022 Finger fracture, left 04/15/2022 Overview (09/23/2022): SPL[employer]ED IN [employer] Hypertension 04/15/2022 Overview (09/23/2022): SPLINTED IN H[employer] S[employer] Macular pucker 04/15/2022 Onychomycosis 04/15/2022 Other decreased white blood cell count Other idiopathic scoliosis, thoracic region 05/2022 Prediabetes 04/15/2022 Scoliosis 04/15/2022 Skin cancer 04/15/2022 Resolved Problems Problem Noted Date Diagnosed Date Resolved Date CINV (chemotherapy-induced n ausea and vomiting) 11/10/2022 02/26/2023 Neoplasm related pain 11/10/20222022 Benign prostatic hyperplasia 04/15/2022 11/10/2022 Encounters Date Type Department Care Team Description 07/25/2024 Orders Only [facility] [address] [facility], [address] [place] [address] Juan Pablo Cee MD 06/27/2024 3:15 PM EDT Clinical Support [facility] [address], [address] [place] [address] 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 06/27/2024 2:00 PM EDT - 06/27/2024 11:59 PM EDT Hospital Encounter [facility] [id number] [place] [address] Eduardo Johnston MD Primary cancer of oropharynx (CMS/HCC) (Primary Dx); Radiotherapy follow-up examination Discharge Disposition: Still a Patient 06/27/2024 Travel 06/22/2024 10:15 AM EDT - 06/22/2024 11:59 PM EDT Hospital Encounter [facility] [address] [place] [address] Oropharynx neoplasm Discharge Disposition: Home or Self Care 06/22/2024 9:30 AM EDT Clinical Support [facility] [address] [place] [address] Cancer of base of tongue (CMS/HCC); Multiple lung nodules on CT 06/22/2024 Travel 06/14/2024 Orders Only [facility] [address] [facility], [address] [place] [address] Juan Pablo Cee MD 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) 06/10/2024 11:30 AM EDT Office Visit [facility] [address] [place] [address] Juan Pablo Cee MD Cancer of base of tongue (CMS/HCC) 06/10/2024 Travel 05/18/2024 Orders Only [facility] [id number] [place] [address] Eduardo Johnston MD Oropharyngeal carcinoma (CMS/HCC) (Primary Dx) from Last 3 Months Immunizations Name Administration Dates Next Due Influenza, high-dose, quadrivalent 06/18,06/06/2021,05/18/2020,07/26,05/04/2018,07/08/2017 Moderna Covid-19 Vaccine (Bl ue Cap) Prim Series 6y-11y 12/09/2021 Pneumococcal Conjugate PCV 13 01/27/2019 Pneumococcal Polysaccharide PPV23 01/31/2020 Family History Medical History Relation Name Comments Heart disease Other Hypertension Other Malig Hyperthermia Neg Hx Relation Name Status Comments Other Social History Tobacco Use Types Packs/Day Years Used Date Smoking Tobacco: Never Smokeless Tobacco: Never Tobacco Cessation:Counseling Given: Not Answered Alcohol Use Standard Drinks/Week Comments Yes 0 (1 standard drink = 0.6 oz pur e alcohol) socially PHQ-2 Answer Date Recorded Patient Health Questionnaire-2 Score 0 01/20/2023 PHQ-2A Answer Date Recorded Patient Health Questionnaire-2 Score 0 01/20/2023 Sex and Gender Information Value Date Recorded Sex Assigned at Not on file Legal Sex Male 10:04 PM EDT Gender Identity Not on file Sexual Orientation Not on file Last Filed Vital Signs Vital Sign Reading Time Taken Comments Blood Pressure 129/72 06/27/2024 2:05 PM EDT Pulse 76 06/27/2024 2:05 PM EDT Temperature 36.8 ??C (98.2 ??F) 06/27/2024 2:05 PM ED T Respiratory Rate 16 06/27/2024 2:05 PM EDT Oxygen Saturation 97% 06/27/2024 2:05 PM EDT Inhaled Oxygen Concentration - - Weight 79.8 kg (175 lb 14.8 oz) 06/27/2024 2:05 PM EDT Height 188 cm (6' 2.02 ) 02/18/2024 9:53 AM EDT Body Mass Index 22.58 02/18/2024 9:53 AM EDT Plan of Treatment Upcoming Encounters Date Type Department Care Team ([facility] st Contact Info) Description 10/17/2024 8:00 AM EST Clinical Support [facility] [address] [address] 10/17/2024 9:00 AM EST Appointment [facility] PET Scan [address] [place] [address] 10/17/2024 10:00 AM EST Appointment [facility] PET Scan [address] [place] [address] 10/17/2024 11:00 AM EST Office Visit [facility] [address] [address] Juan Pablo Cee MD [address] [place] [address] 10/17/2024 1:00 PM EST Clinical Support [facility] [address] [place] [address] 10/17/2024 2:20 PM EST Appointment [facility] [address] [place] [address] 10/20/2024 3:30 PM EST Office Visit [facility] [address] [place] [address] Germaine Alejandro MD [address] [facility] [address] [place] [address] Health Maintenance Due Date Last Done Comments Dental Oral Exam 1950 Dental Prophylaxis 1950 Dental X-Ray: Bitewings 1950 Dental X-Ray: Full Mouth 1950 [facility]-Infant/Child/Adol SDOH Screenings 1950 [facility]- SDOH Screenings 1968 [facility]-Adult SDOH Screenings 1968 [facility]-DTaP,Tdap,and Td Vaccines (1 - Tdap) 1969 CT Colonography 1995 Colonoscopy 1995 FIT-DNA 1995 FIT 1995 FOBT 1995 Sigmoidoscopy 1995 [facility]-Colorectal Cancer Screening 1995 [facility]-Depression Screening 01/21/2024 01/20/2023 [id number]-19 Vaccine ( season) 2024 05/10/2024, 06/22/2023, 06/18/2022, Additional history exists [facility]-Diabetes: Hemoglobin A1C 02/25/2025 02/26/2024, 02/20/2023 [facility]-Medicare Annual Wellness (AWV) 02/25/2025 02/26/2024, 02/20/2023 [facility]-Pneumococcal Vaccine: 65+ Years Completed 01/31/2020, 01/27/2019 [facility]-Hepatitis C Screening Completed 02/20/2023 [facility]-RSV Vaccine: 60+ Years or Completed 07/17/2023 [facility]-Zoster Vaccines Completed 11/09/2023, [facility]-Influenza Vaccine Completed 05/10/2024 , 06/10/2023, 06/18/2022, Additional history exists [facility]-HIB Vaccines Aged Out No longer e ligible based on patient's age to complete this topic [facility]-HPV Vaccines Aged Out No longer e ligible based on patient's age to complete this topic [facility]-Hepatitis A Vaccines Aged Out No longer eligible based on patient's age to complete this topic [facility]-IPV Vaccines Aged Out No longer e ligible based on patient's age to complete this topic [facility]-Rotavirus Vaccines Aged Out No lo nger eligible based on patient's age to complete this topic Procedures Procedure Name Priority Date/Time Associated Diagnosis Comments FREE T4, PLASMA Routine 06/27/2024 3:10 PM EDT 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 CT SOFT TISSUE NECK W IV CONTRAST Routine 06/22/2024 11:36 AM EDT Oropharynx neoplasm CT CHEST W IV CONTRAST Routine 11:36 AM EDT Oropharynx neoplasm POCT CREATININE ISTAT UNSOLICITED RESULTS Routine 06/22/2024 10:55 AM EDT TSH Routine 06/22/2024 9:47 AM EDT Cancer of base of tongue (CMS/HCC) Multiple lung nodules on CT COMPREHENSIVE METABOLIC PANEL, PLASMA Routine 06/22/2024 9:47 AM EDT Cancer of base of tongue (CMS/HCC) Multiple lung nodules on CT CBC WITH AUTO DIFFERENTIAL Routine 06/22/2024 9:47 AM EDT Cancer of base of tongue (CMS/HCC) Multiple lung nodules on CT from Last 3 Months Results * Free T4, Plasma (06/27/2024 3:10 PM EDT) Free T4, Plasma 0.9 0.8 - 1.7 ng/dL 06/27/2024 4:14 PM EDT [facility] Blood Venous blood specimen / Unknown Venipuncture / Unknown 06/27/2024 3:10 PM EDT 06/27/2024 3:38 PM EDT us Germaine Alejandro MD LAB BLOOD ORDERABLES Final R esult [facility] [address] [place] [address] * CT Chest w IV Contrast (06/22/2024 11:36 AM EDT) Anatomical Region Laterality Modality Chest Computed Tomogra phy Impressions 06/22/2024 2:13 PM EDT No evidence of thoracic progression of malignancy. CRITICAL RESULT: No. COMMUNICATION: Per this written report. By electronically signing this report, I, the attending physician, attest that I have personally reviewed the images/data for the above examination(s) and agree with the final edited report. 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 100 ??mL of Omnipaque-300 were administered intravenously. ?? Total DLP (Dose-Length Product): 941.69 mGy.cm. Please note: The reported value represents the total of one or more individual components during the CT acquisition on this date and at this time, and as such, the same value may appear in more than one CT report depending on the interpreting/reporting physicians. COMPARISON: October 13, 2023. FINDINGS: Mediastinum and Pleura: No mediastinal or hilar adenopathy. Moderate coronary artery calcifications. Small hiatus hernia. No pleural or pericardial effusion. Lungs: Stable clustered peribronchial nodules right lower lobe, likely due to prior aspiration or infection. Stable bilateral calcified nodules/ granulomas. No new pulmonary nodules. Upper Abdomen: Stable well-defined low-density lesions in the liver including the 20 mm left lobe lesion (series 3, image 86), likely cysts. Musculoskeletal: No suspicious lytic or sclerotic lesion. Degenerative changes of spine. Stable scoliosis of spine. 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 100 mL of Omnipaque-300 wereadministered intravenously. Total DLP (Dose-Length Product): 941.69 mGy.cm. Please note: The reportedvalue represents the total of one or more individual components during theCT acquisition on this date and at this time, and as such, the same valuemay appear in more than one CT report depending on theinterpreting/reporting physicians. COMPARISON: October 13, 2023. FINDINGS: Mediastinum and Pleura: No mediastinal or hilar adenopathy. Moderatecoronary artery calcifications. Small hiatus hernia. No pleural orpericardial effusion. Lungs: Stable clustered peribronchial nodules right lower lobe, likely dueto prior aspiration or infection. Stable bilateral calcified nodules/granulomas. No new pulmonary nodules. Upper Abdomen: Stable well-defined low-density lesions in the liverincluding the 20 mm left lobe lesion (series 3, image 86), likely cysts. Musculoskeletal: No suspicious lytic or sclerotic lesion. Degenerativechanges of spine. Stable scoliosis of spine. IMPRESSION: No evidence of thoracic progression of malignancy. CRITICAL RESULT: No. COMMUNICATION: Per this written report. By electronically signing this report, I, the attending physician, attestthat I have personally reviewed the images/data for the aboveexamination(s) and agree with the final edited report. Drafted by ALEC Espinosa on 06/22/2024 1:02 PM Final report signed by Jac Gomez MD on 06/22/2024 2:13 PM us Eduardo Johnston MD IMG CT PROCEDURES Final Resu lt * CT Soft Tissue Neck w IV Contrast (06/22/2024 11:36 AM EDT) Anatomical Region Laterality Modality Neck Computed Tomogra phy Impressions 06/27/2024 1:47 PM EDT Overall stable neck CT with post treatment changes in the right-sided neck and oropharynx, with no findings to suggest recurrent disease. No suspicious lymph nodes. CRITICAL RESULT: No. COMMUNICATION: Per this written report. Drafted by Trevor Foy MD on 06/27/2024 8:35 AM Final report signed by Trevor Foy MD on 06/27/2024 1:47 PM Narrative 06/27/2024 1:47 PM EDT CLINICAL INDICATION: surveillance TECHNIQUE: Helical images were obtained through the neck, and reconstructed in the axial plane on bone and soft tissue algorithm at multiple slice thicknesses. Coronal and sagittal reformatted images were created. 100 mL of Omnipaque 300 were administered intravenously. Total DLP (Dose-Length Product): . Please note: The reported value represents the total of one or more individual components during the CT acquisition on this date and at this time, and as such, the same value may appear in more than one CT report depending on the interpreting/reporting physicians. COMPARISON: Multiple prior examinations the most recent from 02/16/2024 FINDINGS: Diagnostic Quality: Adequate. Soft Tissues: Posttreatment changes with stranding of the fat again noted in the right-sided neck and with slight asymmetric soft tissue in the right oropharynx, no significantly changed from multiple prior examinations and with no definite new or enlarging masslike areas of enhancement. Lymph Nodes: No significant cervical adenopathy is noted. Pharynx/Larynx: No definite pharyngeal or laryngeal masses are present. Oral Cavity: No large masses are present within the oral cavity within the limitations of the study. Parapharyngeal Space: No lesions are present within the parapharyngeal space. Salivary Glands: The parotid and submandibular glands are normal in size without definite focal lesions. Thyroid: No focal thyroid lesions are present, within the limitations of the study. Orbits/Paranasal Sinuses/Skull Base: No orbital masses are present within the visualized portions of the orbits. There is mild opacification of the partially visualized right maxillary sinus, most likely inflammatory. Within the skull base, there is no focal lesion or destructive process. Bones/Spine: There are degenerative changes of the spine. There is interval superior endplate deformity with mixed sclerotic and radiolucent changes at T2 and T3, with approximately 20% loss of height. Thoracic Inlet and Lung Apices: Please see the separate report for the chest CT scan for further discussion of intrathoracic findings. Other Findings: None. Procedure Note Trevor Ruth MD - 06/27/2024 CLINICAL INDICATION: surveillance TECHNIQUE: Helical images were obtained through the neck, and reconstructed in theaxial plane on bone and soft tissue algorithm at multiple slicethicknesses. Coronal and sagittal reformatted images were created. 100 mLof Omnipaque 300 were administered intravenously. Total DLP (Dose-Length Product): . Please note: The reported valuerepresents the total of one or more individual components during the CTacquisition on this date and at this time, and as such, the same value mayappear in more than one CT report depending on the interpreting/reportingphysicians. COMPARISON: Multiple prior examinations the most recent from 02/16/2024 FINDINGS: Diagnostic Quality: Adequate. Soft Tissues: Posttreatment changes with stranding of the fat again notedin the right-sided neck and with slight asymmetric soft tissue in theright oropharynx, no significantly changed from multiple priorexaminations and with no definite new or enlarging masslike areas ofenhancement. Lymph Nodes: No significant cervical adenopathy is noted. Pharynx/Larynx: No definite pharyngeal or laryngeal masses are present. Oral Cavity: No large masses are present within the oral cavity within thelimitations of the study. Parapharyngeal Space: No lesions are present within the parapharyngealspace. Salivary Glands: The parotid and submandibular glands are normal in sizewithout definite focal lesions. Thyroid: No focal thyroid lesions are present, within the limitations ofthe study. Orbits/Paranasal Sinuses/Skull Base: No orbital masses are present withinthe visualized portions of the orbits. There is mild opacification of thepartially visualized right maxillary sinus, most likely inflammatory.Within the skull base, there is no focal lesion or destructive process. Bones/Spine: There are degenerative changes of the spine. There isinterval superior endplate deformity with mixed sclerotic and radiolucentchanges at T2 and T3, with approximately 20% loss of height. Thoracic Inlet and Lung Apices: Please see the separate report for thechest CT scan for further discussion of intrathoracic findings. Other Findings: None. IMPRESSION: Overall stable neck CT with post treatment changes in the right-sided neckand oropharynx, with no findings to suggest recurrent disease. Nosuspicious lymph nodes. CRITICAL RESULT: No. COMMUNICATION: Per this written report. Drafted by Trevor Foy MD on 06/27/2024 8:35 AM Final report signed by Trevor Foy MD on 06/27/2024 1:47 PM Eduardo Johnston MD IMG CT PROCEDURES Final Resu lt * POCT creatinine (06/22/2024 10:55 AM EDT) Pathologist [facility] Creatinine, Point of Care 1.1 0.7 - 1.2 mg/dL 06/22/2024 10:58 AM EDT [facility]ALTH[facility] POCT eGFR 71 mL/min/1. 73m*2 06/22/2024 10:58 AM EDT [facility] Teacher ID Nidia Kay 06/22/2024 10:58 AM EDT HEALTHCARE LAB Device ID [id number] 06/22/2024 10:58 AM EDT HEALTHCARE LAB Comment 06/22/2024 10:58 AM EDT [facility] Comment:Testing performed on i-STAT at the point of care. Reported eGFRcr in mL/min/1.73m2 is based the CKD-EPI 2020 equation that does not use a race coefficient. Blood Venous blood specimen / Unknown 06/22/2024 10:55 AM EDT 06/22/2024 10:58 AM EDT us Generic Provider Poct LAB POINT OF CARE TEST DOCKED DEVICE UNSOLICITED RESULTS Final Result [facility] [address] [place], [place] [id number] [place] [address] LAB [address] [place] [address] * (ABNORMAL) CBC and Differential (06/22/2024 9:47 AM EDT) WBC Count 3.88 3.70 - 10.30 10*3/uL LAB HEMATOLOGY METHOD 06/22/2024 10:06 AM EDT [facility] RBC Count 4.52(L) 4.60 - 6.10 10*6/uL LAB HEMATOLOGY METHOD 06/22/2024 10:06 AM EDT [facility] HGB 13.9 13.7 - 17.5 g/dL LAB HEMATOLOGY METHOD 06/22/2024 10:06 AM EDT [facility] HCT 41.4 40.0 - 51.0 % LAB HEMATOLOGY METHOD 06/22/2024 10:06 AM EDT [facility] Platelet Count 225 155 - 369 10*3/uL LAB HEMATOLOGY METHOD 06/22/2024 10:06 AM EDT [facility] MCV 92 79 - 98 fL LAB HEMATOLOGY METHOD 06/22/2024 10:06 AM EDT [facility] MCH 30.8 26.0 - 32.0 pg LAB HEMATOLOGY METHOD 06/22/2024 10:06 AM EDT [facility] MCHC 33.6 30.7 - 35.5 g/dL LAB HEMATOLOGY METHOD 06/22/2024 10:06 AM EDT [facility] RDW 13.0 11.5 - 14.5 % LAB HEMATOLOGY METHOD 06/22/2024 10:06 AM EDT [facility] MPV 9.0 8.8 - 12.5 fL LAB HEMATOLOGY METHOD 06/22/2024 10:06 AM EDT [facility] nRBC 0.0 <=0.0 per 100 WBCs LAB HEMATOLOGY METHOD 06/22/2024 10:06 AM EDT [facility] Differential Type Automated LAB HEMATOLOGY METHOD 06/22/2024 10:06 AM EDT [facility] Neutrophils % 70 % LAB HEMATOLOGY METHOD 06/22/2024 10:06 AM EDT [facility] Lymphocytes % 10 % LAB HEMATOLOGY METHOD 06/22/2024 10:06 AM EDT [facility] Monocytes % 14 % LAB HEMATOLOGY METHOD 06/22/2024 10:06 AM EDT [facility] Eosinophils % 5 % LAB HEMATOLOGY METHOD 06/22/2024 10:06 AM EDT [facility] Basophils % 1 % LAB HEMATOLOGY METHOD 06/22/2024 10:06 AM EDT [facility] Immature Granulocytes % 0 % LAB HEMATOLOGY METHOD 06/22/2024 10:06 AM EDT [facility] Neutrophils Absolute 2.71 1.60 - 6.10 10*3/uL LAB HEMATOLOGY METHOD 06/22/2024 10:06 AM EDT [facility] Lymphocytes Absolute 0.40(L) 1.20 - 3.90 10*3/uL LAB HEMATOLOGY METHOD 06/22/2024 10:06 AM EDT [facility] Monocytes Absolute 0.54 0.30 - 0.90 10*3/uL LAB HEMATOLOGY METHOD 06/22/2024 10:06 AM EDT [facility] Eosinophils Absolute 0.18 0.00 - 0.50 10*3/uL LAB HEMATOLOGY METHOD 06/22/2024 10:06 AM EDT [facility] Basophils Absolute 0.04 0.00 - 0.10 10*3/uL LAB HEMATOLOGY METHOD 06/22/2024 10:06 AM EDT [facility] Immature Granulocytes Absolute 0.01 0.00 - 0.06 10*3/uL LAB HEMATOLOGY METHOD 06/22/2024 10:06 AM EDT [facility] Blood Venous blood specimen / Unknown Venipuncture / Unknown 06/22/2024 9:47 AM EDT 06/22/2024 9:58 AM EDT Narrative [facility] - 06/22/2024 10:06 AM EDT Therapeutic decision making should be based on absolute values, rather than percentages. us Germaine Alejandro MD LAB BLOOD ORDERABLES Final R esult [facility] [address] [place] [address] * (ABNORMAL) Thyroid Stimulating Hormone, Plasma (06/22/2024 9:47 AM EDT) Thyroid Stimulating Hormone, Plasma 4.65(H) 0.40 - 4.20 uIU/mL 06/22/2024 10:53 AM EDT [facility] Blood Venous blood specimen / Unknown Venipuncture / Unknown 06/22/2024 9:47 AM EDT 06/22/2024 9:58 AM EDT us Germaine Alejandro MD LAB BLOOD ORDERABLES Final R esult [facility] [address] [place] [address] * (ABNORMAL) Comprehensive Metabolic Panel, Plasma (06/22/2024 9:47 AM EDT) Glucose, Plasma 100(H) 74 - 99 mg/dL 06/22/2024 10:53 AM EDT [facility] BUN, Plasma 19 8 - 23 mg/dL 06/22/2024 10:53 AM EDT [facility] Creatinine, Plasma 1.19 0.70 - 1.20 mg/dL 06/22/2024 10:53 AM EDT [facility] BUN/Creatinine Ratio 16 06/22/2024 10:53 AM EDT [facility] Sodium, Plasma 137 136 - 145 mmol/L 06/22/2024 10:53 AM EDT [facility] Potassium, Plasma 5.0(H) 3.6 - 4.9 mmol/L 06/22/2024 10:53 AM EDT [facility] Chloride, Plasma 105 97 - 107 mmol/L 06/22/2024 10:53 AM EDT [facility] CO2, Plasma 25 22 - 29 mmol/L 06/22/2024 10:53 AM EDT [facility] Anion Gap 7 6 - 16 mmol/L 06/22/2024 10:53 AM EDT [facility] Total Calcium, Plasma 9.2 8.9 - 10.2 mg/dL 06/22/2024 10:53 AM EDT [facility] Total Protein 6.3 6.3 - 7.9 g/dL 06/22/2024 10:53 AM EDT [facility] Albumin, Plasma 4.0 3.5 - 5.2 g/dL 06/22/2024 10:53 AM EDT [facility] AST, Plasma 30 10 - 50 U/L 06/22/2024 10:53 AM EDT [facility] ALT, Plasma 28 10 - 50 U/L 06/22/2024 10:53 AM EDT [facility] Alkaline Phosphatase, Plasma 60 40 - 115 U/L 06/22/2024 10:53 AM EDT [facility] Total Bilirubin, Plasma 0.3 0.2 - 1.1 mg/dL 06/22/2024 10:53 AM EDT [facility] eGFRcr 64.5 mL/min/1.7 3m*2 06/22/2024 10:53 AM EDT [facility] Comment:Reported eGFRcr in m L/min/1.73m2 is based the CKD-EPI 2020 equation that does not use a race coefficient. 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
--- OUTSIDE RECORDS SUMMARY | 2024-07-27 06:50 | XMS_ITS | Encounter Summary ---
Author Organization [facility] Address [address] [place] [id number] Care Team Providers Care Regulatory Services Consultant Name Role Phone Manjit Gorman MD Primary Care Provider [phone] Reason for Visit * Reason Comments Annual Exam Encounter Details Date Type Department Care Team (Late st Contact Info) Description 02/20/2023 9:00 AM EDT Office Visit [facility] [address] [place] [address] [place] [address] Manjit Gorman MD [address] [place] [address] [place] [address] Encounter for general adult medical examination with abnormal findings (Primary Dx); Prediabetes; Primary hypertension; Dyslipidemia; Vitamin D deficiency; Prostate cancer; Cancer of base of tongue; Other male erectile dysfunction; Meralgia paresthetica of right side; Onychomycosis; Need for hepatitis C screening test Social History Tobacco Use Types Packs/Day Years Used Date Smoking Tobacco: Never Smokeless Tobacco: Never Alcohol Use Standard Drinks/Week Comments Yes 1 (1 standard drink = 0.6 oz pure alcohol) 7-10 BEERS OVER THE COURSE OF A WEEK PHQ-2 Answer Date Recorded Retired PHQ-9: Brief Depression Severity Measure Score 0 02/20/2023 PHQ-2 Answer Date Recorded Retired PHQ-9: Brief Depression Severity Measure Score 0 02/20/2023 Sex and Gender Information Value Date Recorded Sex Assigned at Not on file Legal Sex Male 4:13 PM EST Gender Identity Not on file Sexual Orientation Not on file documented as of this encounter Last Filed Vital Signs Vital Sign Reading Time Taken Comments Blood Pressure 124/76 02/20/2023 8:45 AM EDT Pulse 86 02/20/2023 8:45 AM EDT Temperature 36.3 ??C (97.4 ??F) 02/20/2023 8:45 AM ED T Respiratory Rate - - Oxygen Saturation 100% 02/20/2023 8:45 AM EDT Inhaled Oxygen Concentration - - Weight 76.6 kg (168 lb 12.8 oz) 02/20/2023 8:45 AM EDT Height 182.9 cm (6') 02/20/2023 8:45 AM EDT Body Mass Index 22.89 02/20/2023 8:45 AM EDT documented in this encounter Progress Notes * Manjit Gorman MD - 02/20/2023 9:00 AM EDTAssociated Order(s): ECG 12 Lead Pre-Procedure Diagnose(s): Primary hypertension; Encounter for general adult medical examination with abnormal findings Post-Procedure Diagnose(s): Primary hypertension; Encounter for general adult medical examination with abnormal findings Images from the original note were not included. The ABCs of the Annual Wellness Visit Subsequent Medicare Wellness Visit Subjective Erick Sierra is a 72 y.o. male who presents for a Subsequent Medicare Wellness Visit. The following portions of the patient's history were reviewed and updated as appropriate: allergies, current medications, past family history, past medical history, past social history, past surgical history, and problem list. Compared to one year ago, the patient feels his physical health is worse. Compared to one year ago, the patient feels his mental health is the same. Recent Hospitalizations: He was not admitted to the hospital during the last year. Current Medical Providers: Patient Care Team: Manjit Gorman MD as PCP - General (Internal Medicine) Barry Mina MD as Referring Physician (Urology) Jann Callejas MD as Consulting Physician (Radiation Oncology) Perry Murillo MD (Gastroenterology) Yari Campbell MD (Dermatology) Liudmila Salinas MD as Emergency Attending (Otolaryngology) Outpatient Medications Prior to Visit Medication Sig Dispense Refill amLODIPine-benazepril (LOTREL 2.5-10) 2.5-10 MG per capsule Take 1 capsule by mouth Daily. 90 capsule 1 BLACK ELDERBERRY PO Take 1 tablet by mouth Every Night. multivitamin with minerals tablet tablet Take 1 tablet by mouth Daily. tadalafil (CIALIS) 5 MG tablet TAKE 1 OR 2 TABLETS BY MOUTH DAILY NEEDED FOR ED terbinafine (lamiSIL) 250 MG tablet Take 1 tablet by mouth Daily. dexamethasone (DECADRON) 4 MG tablet (Patient not taking: Reported on 02/20/2023) gabapentin (NEURONTIN) 600 MG tablet (Patient not taking: Reported on 02/20/2023) ondansetron (ZOFRAN) 8 MG tablet Take 1 tablet by mouth Every 8 (Eight) Hours As Needed. (Patient not taking: Reported on 02/20/2023) prochlorperazine (COMPAZINE) 10 MG tablet (Patient not taking: Reported on 02/20/2023) terbinafine (lamiSIL) 250 MG tablet No facility-administered medications prior to visit. No [...] count Other idiopathic scoliosis, thoracic region Prediabetes Skin cancer Cancer of base of tongue CINV (chemotherapy-induced nausea and vomiting) Mixed conductive and sensorineural hearing loss of both ears Neoplasm related pain Second hand smoke exposure Vitamin D deficiency Advance Care Planning Advance Care Planning Advance Directive is not on file. ACP discussion was held with the patient during this visit. Patient has an advance directive (not in EMR), copy requested. Objective Vitals: 02/20/23 0845 BP: 124/76 BP Location: Left arm Patient Position: Sitting Cuff Size: Adult Pulse: 86 Temp: 97.4 ??F (36.3 ??C) TempSrc: Temporal SpO2: 100% Weight: 76.6 kg (168 lb 12.8 oz) Height: 182.9 cm (72 ) Estimated body mass index is 22.89 kg/m?? as calculated from the following: Height as of this encounter: 182.9 cm (72 ). Weight as of this encounter: 76.6 kg (168 lb 12.8 oz). BMI is within normal parameters. No other follow-up for BMI required. Does the patient have evidence of cognitive impairment? No HEALTH RISK ASSESSMENT Smoking Status: Social History Tobacco Use Smoking Status Never Smokeless Tobacco Never Alcohol Consumption: Social History Substance and Sexual Activity Alcohol Use Yes Alcohol/week: 1.0 standard drink Types: 1 Cans of beer per week Comment: 7-10 BEERS OVER THE COURSE OF A WEEK Fall Risk Screen: JORGE Fall Risk Assessment was completed, and patient is at LOW risk for falls.Assessment completed on:02/20/2023 Depression Screenin02/20/2023 8:49 AM PHQ-2/PHQ-9 Depression Screening Little Interest or Pleasure in Doing Things 0-->not at all Feeling Down, Depressed or Hopeless 0-->not at all PHQ-9: Brief Depression Severity Measure Score 0 Health Habits and Functional and Cognitive Screenin02/20/2023 8:49 AM Functional & Cognitive Status Do you have difficulty preparing food and eating? No Do you have difficulty bathing yourself, getting dressed or grooming yourself? No Do you have difficulty using the toilet? No Do you have difficulty moving around from place to place? No Do you have trouble with steps or getting out of a bed or a chair? No Current Diet Well Balanced Diet Dental Exam Up to date Eye Exam Up to date Exercise (times per week) 0 times per week Current Exercises Include Yard Work;Walking;House Cleaning;Gardening Do you need help using the phone? No Are you deaf or do you have serious difficulty hearing? Yes Do you need help with transportation? No Do you need help shopping? No [...] anger or loneliness in the last month? Yes Who do you live with? Spouse If [...] written plan. Health Maintenance Topic Date Due HEPATITIS C SCREENING Never done TDAP/TD VACCINES (1 - Tdap) 08/26/2023 (Originally 1969) ZOSTER VACCINE (1 of 2) 08/25/2024 (Originally 1969) INFLUENZA VACCINE 06/07/2023 ANNUAL WELLNESS VISIT 02/21/2024 COLORECTAL CANCER SCREENING 03/20/2027 COVID-19 Vaccine Completed Pneumococcal Vaccine 65+ Completed [facility] Preventative Services Quick Reference Risk Factors Identified During Encounter Hearing Problem: not lifestyle limiting Immunizations Discussed/Encouraged: Tdap and Shingrix Dental Screening Recommended The above risks/problems have [...] Sierra is also being seen today for yearly complete physical. 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 Lamar Alejandro of hematology oncology at having had CT of his chest abdomen pelvis performed today, per report reviewed by me having no evidence of metastatic disease. He is slowly feeling better regarding his strength, still has no taste,swallowing better and it started to eat solid foods. He is down 12 pounds from when I saw him last fall 2021. He also was diagnosed with prostate cancer spring 2021 and is followed by Dr. Mina status post completion of CyberKnife therapy, most recent PSA reported earlier this month having improved to 1.0. 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 No chest pains palpitations dyspnea dizziness or edema, no GI complaints, mild BPH with nocturia, good stream, no dysuria hematuria, no musculoskeletal complaints pain having history of chronic scoliosis. Patient does note recently some tingling sensation on the right anterolateral thigh with no associated pain or leg weakness, no back pain, sensory changes not noted elsewhere. Moods generally doing well given the health problems he has gone through. Note patient did have laboratory testing yesterday including TSH CBC and CMP all of which were satisfactory. Objective Vital Signs: BP 124/76 (BP Location: Left arm, Patient Position: Sitting, Cuff Size: Adult) Pulse 86 Temp 97.4 ??F (36.3 ??C) (Temporal) Ht 182.9 cm (72 ) Wt 76.6 kg (168 lb 12.8 oz) SpO2 100% BMI 22.89 kg/m?? Physical Exam Vitals and nursing note reviewed. Constitutional: Appearance: Normal appearance. He is normal weight. Comments: No acute distress, alert and oriented, fluent speech, tall and slender, 12 pound weight loss since last evaluated as post radiation therapy and chemotherapy, slightly hoarse voice which by history is improving HENT: Head: Normocephalic and atraumatic. Right Ear: Tympanic membrane, ear canal and external ear normal. Left Ear: Tympanic membrane, ear canal and external ear normal. Nose: Nose normal. Mouth/Throat: Mouth: Mucous membranes are moist. Pharynx: Oropharynx is clear. Comments: Mild deformity of the right sided soft palate, almost webbed in appearance along the tonsillar margin, mucous membranes otherwise moist and clear Eyes: Extraocular Movements: Extraocular movements intact. Conjunctiva/sclera: Conjunctivae normal. Pupils: Pupils are equal, round, and reactive to light. Neck: Vascular: No carotid bruit. Comments: No cervical adenopathy masses or current tenderness, moderate decreased range of motion to rotation and extension with good flexion, keeping his head chronically mildly forward flexed, no periclavicular or axillary or inguinal adenopathy Cardiovascular: Rate and Rhythm: Normal rate and regular rhythm. Pulses: Normal pulses. Heart sounds: Normal heart sounds. No murmur heard. No friction rub. No gallop. Comments: 2+ carotids without bruits, 2+ radial pulses, 2+ femoral pulses without bruits, 2+ bipedal pulses with good perfusion and no edema Pulmonary: Effort: Pulmonary effort is normal. Breath sounds: Normal breath sounds. Comments: No cough wheeze or dyspnea Abdominal: General: Abdomen is flat. Bowel sounds are normal. Palpations: Abdomen is soft. There is no mass. Tenderness: There is no abdominal tenderness. There is no guarding or rebound. Genitourinary: Comments: and rectal exams deferred as routinely performed by urologist with no acute complaints Musculoskeletal: General: Deformity present. No swelling or tenderness. Normal range of motion. Cervical back: Normal range of motion and neck supple. Rigidity present. No tenderness. Right lower leg: No edema. Left lower leg: No edema. Comments: Chronic dextroscoliosis with no spinal pain Lymphadenopathy: Cervical: No cervical adenopathy. Skin: General: Skin is warm and dry. Capillary Refill: Capillary refill takes less than 2 seconds. Findings: No lesion or rash. 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 Neurological: General: No focal deficit present. Mental Status: He is alert and oriented to person, place, and time. Mental status is at baseline. Sensory: Sensory deficit present. Comments: Subjective tingling on the right anterolateral thigh, with 2+ pulses, normal sensation inboth feet to fine touch vibration and pinprick with motor exam normal, no skin breakdown Psychiatric: Mood and Affect: Mood normal. Behavior: Behavior normal. Thought Content: Thought content normal. Judgment: Judgment normal. Diabetic Foot Exam Performed and Monofilament Test Performed ECG 12 Lead Date/Time: 02/20/2023 9:17 AM Performed by: Manjit Gorman MD Authorized by: Manjit Gorman MD Comparison: compared with previous ECG from 02/14/2022 Comparison to previous ECG: Normal sinus rhythm rate 75 with first-degree AV block, no ischemic change, no change versus prior tracing Assessment and Plan Diagnoses and all orders for this visit: 1. 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 Overall strength is improving. Periodic health maintenance current including colonoscopy from 08/2021 with a 10-year follow-up recommended, immunizations up-to-date other than would benefit from COVID-19 bivalent booster, and Shingrix vaccine along with Tdap, the latter covered by his Medicare. Will discuss with his oncologist whether or not he can pursue the appropriate vaccines and also encouraged to obtain flu vaccine each fall. 2. Prediabetes - MicroAlbumin, Urine, Random - Urine, Clean Catch - Lipid Panel - Hemoglobin A1c Most recent documented hemoglobin A1c of 5.5% in 02/2022 with previous value of 5.8% 1 year earlier.We will update testing. Has had suboptimal diet recently as well as exercise given his treatment for oral cancer but slowly improving as his energy gets better. 3. Primary hypertension - ECG 12 Lead - Urinalysis With Culture If Indicated - Urine, Clean Catch Blood pressure control acutely as well as chronically very satisfactory taking amlodipine/benazepril 2.5/10 mg daily. 4. Dyslipidemia - Lipid Panel - Vitamin D,25-Hydroxy Update lipid profile. 6. Prostate cancer Status post carcinoma of the prostate stage IIb status post CyberKnife therapy completed in 12/2021 under the direction of Dr. Mina, patient reporting most recent PSA earlier this month improved at1.0. Keep urology follow-up. 7. 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 Alejandro with hematology oncology in the nextweek. Patient did undergo surveillance CT of the chest abdomen and pelvis yesterday, thoughts of which I reviewed with patient which indicated no evidence of any metastatic disease. To discuss this further with his oncologist at his follow-up visit. 8. Other male erectile dysfunction Taking Cialis 5 mg daily prescribed by urology 9. Meralgia paresthetica of right side No specific therapy other than ensuring he does not have a tight pant which can compress the superficial lateral cutaneous nerve. 10. 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 11. Need for hepatitis C screening test - Hepatitis C Antibody Note TSH CBC and CMP were ordered yesterday through , thus not being repeated today. Follow Up Return in about 6 months (around 08/22/2023) for Recheck. Patient was given instructions and counseling regarding his condition or for health maintenance advice. Please see specific information pulled into the AVS if appropriate. * Katherine Zambrano MA - 02/20/2023 9:00 AM EDT Venipuncture Blood Specimen Collection Venipuncture performed in right arm by Katherine Zambrano MA with good hemostasis. Patient tolerated the procedure well without complications. 02/20/23 Katherine Zambrano MA documented in this encounter Plan of Treatment Upcoming Encounters Date Type Department Care Team (Late st Contact Info) Description 08/22/2024 8:30 AM EST Office Visit [facility] [address] [place] [address] [place] [phone] Manjit Gorman MD [address] [place] [address] [place] [id number] 02/27/2025 9:00 AM EDT Office Visit [facility] [place] [address] Manjit Gorman [facility] [place] [address] documented as of this encounter Procedures Procedure Name Priority Date/Time Associated Diagnosis Comments ~MICROSCOPIC EXAMINATION Routine 02/20/2023 10:01 AM EDT URINALYSIS W/ CULTURE IF INDICATED Routine 02/20/2023 10:01 AM EDT Primary hypertension Encounter for general adult medical examination with abnormal findings HEPATITIS C ANTIBODY Routine 02/20/2023 10:01 AM EDT Encounter for general adult medical examination with abnormal findings Need for hepatitis C screening test MICROALBUMIN, URINE, RANDOM Routine 02/20/2023 10:01 AM EDT Prediabetes Encounter for general adult medical examination with abnormal findings VITAMIN D,25-HYDROXY Routine 02/20/2023 10:01 AM EDT Encounter for general adult medical examination with abnormal findings Vitamin D deficiency HEMOGLOBIN A1C Routine 02/20/2023 10:01 AM EDT Prediabetes Encounter for general adult medical examination with abnormal findings LIPID PANEL Routine 02/20/2023 10:01 AM EDT Prediabetes Encounter for general adult medical examination with abnormal findings Dyslipidemia ECG 12-LEAD Routine 02/20/2023 9:17 AM EDT Primary hypertension Encounter for general adult medical examination with abnormal findings documented in this encounter Results * (ABNORMAL) Microscopic Examination - (02/20/2023 10:01 AM EDT) WBC, UA None seen 0 - 5 /hpf [facility] RBC, UA None seen 0 - 2 /hpf [facility] Epithelial Cells (non renal) None seen 0 - 10 /hpf [facility] Casts None seen None seen /lpf [facility] Crystals, UA Present(A) N/A [facility] Crystal Type Uric Acid N/A [facility] Bacteria, UA None seen None seen/Few [facility] 02/20/2023 10:0 1 AM EDT 02/21/2023 Comment:Urine Narrative [facility]) - 02/21/2023 10:07 AM EDT Performed at: ??01 - [facility] [address] ??[id number] Property Caretaker: Toby Rosario PhD, Phone: ??[phone] us Manjit Gorman MD URINE ORDERABLES Final Result Performing Organization Address [facility] Co de Phone Number [facility] [address] [place] [address], [place] [phone] [facility] [address] [place] [address], [place] [phone] * MicroAlbumin, Urine, Random - Urine, Clean Catch (02/20/2023 10:01 AM EDT) [facility] Microalbumin, Urine 7.6 Not Estab. ug/mL [facility] Urine Urine specimen obtained by clean catch procedure / Unknown 02/20/2023 10:01 AM EDT 02/21/2023 Comment:Urine Narrative [facility] - 02/21/2023 10:07 AM EDT Performed at: ??01 - [facility] [address] [place] [address] ??[id number] Property Caretaker: Toby Rosario PhD, Phone: ??[phone] us Manjit Gorman MD URINE ORDERABLES Final Result Performing Organization Address [facility] Co de Phone Number [facility] [address] [place] [address], [place] [phone] [facility] [address] [place] [address], [place] [phone] * Urinalysis With Culture If Indicated - Urine, Clean Catch (02/20/2023 10:01 AM EDT) Pathologist [facility] [place], UA 1.028 1.005 - 1.030 [facility] pH, UA [...] obtained by clean catch procedure / Unknown 02/20/2023 10:01 AM EDT 02/21/2023 Comment:Urine Narrative [facility] ([facility]) - 02/21/2023 10:07 AM EDT Performed at: ??01 - [address] ??[id number] Property Caretaker: Toby Rosario PhD, Phone: ??[phone] Manjit Gorman MD URINE ORDERABLES Final Result [facility] ([facility]BUL[facility]ORY) [address] [place] [address], [facility] [address] [place] [address], * Vitamin D,25-Hydroxy (02/20/2023 10:01 AM EDT) 25 Hydroxy, Vitamin D 45.5 30.0 - 100.0 ng/mL [facility] Comment: Vitamin D deficiency has been defined by the [place] [employer] and an Endocrine Society practice guideline as a level of serum 25-OH vitamin D less than 20 ng/mL (1,2). The Endocrine Society went on to further define vitamin D insufficiency as a level between 21 and 29 ng/mL (2). 1. IOM ([place] [employer]). 2010. Dietary reference ?? intakes for calcium and D. [place]: The ?? National Academies Press. 2. Rochelle MF, Mariangel NC, Boby ART, et al. ?? Evaluation, treatment, and prevention of vitamin D ?? deficiency: an Endocrine Society clinical practice ?? guideline. JCEM. 2010; 96(7):1911-30. Blood Structure of right upper limb / Unknown 02/20/2023 10:01 AM EDT 02/21/2023 Comment:Blood Release to pat i Narrative [facility] ([facility]) - 02/21/2023 11:07 AM EDT Performed at: ??01 - [facility] [address] [place] [address] ??[id number] Property Caretaker: Toby Rosario PhD, Phone: ??[phone] us Manjit Gorman MD LAB BLOOD ORDERABLES Final Res ult [facility] ([facility]) [address] [place] [address], [place] [phone] [facility] [address] [place] [address], [place] [phone] * Lipid Panel (02/20/2023 10:01 AM EDT) Total Cholesterol 187 100 - 199 mg/dL [facility] Triglycerides 90 0 - 149 mg/dL [facility] HDL Cholesterol 72 >39 mg/dL [facility] VLDL Cholesterol Brannon 16 5 - 40 mg/dL [facility] LDL Chol Calc (NIH) 99 0 - 99 mg/dL [facility] Blood Structure of right upper limb / Unknown 02/20/2023 10:01 AM EDT 02/21/2023 Comment:Blood Release to [facility]) - 02/21/2023 11:07 AM EDT Performed at: ??01 - [facility] [address] ??[id number] Property Caretaker: Toby Rosario PhD, Phone: ??[phone] us Manjit Gorman MD LAB BLOOD ORDERABLES Final Res ult [facility] ([facility]) [address] [place] [address], [place] [phone] [facility] [address] [place] [address], [place] [phone] * Hemoglobin A1c (02/20/2023 10:01 AM EDT) Hemoglobin A1C 5.4 4.8 - 5.6 % [facility] Comment: ? Prediabetes: 5.7 - 6.4 ? Diabetes: >6.4 ? Glycemic control for adults with diabetes: <7.0 Blood Structure of right upper limb / Unknown 02/20/2023 10:01 AM EDT 02/21/2023 Comment:[facility] to [facility] - 02/21/2023 11:07 AM EDT Performed at: ??01 - [address] ??[id number] Property Caretaker: Toby Rosario PhD, Phone: ??[phone] us Manjit Gorman MD LAB BLOOD ORDERABLES Final Res ult [facility] [address] [place] [address], [place] [phone] [facility] [address] [place] [address], [place] [phone] * Hepatitis C Antibody (02/20/2023 10:01 AM EDT) Pathologist [facility] Hep C Virus Ab Non Reactive Non Reactive [facility] Comment: HCV antibody alone does not differentiate between previously resolved infection and active infection. Equivocal and Reactive HCV antibody results should be followed up with an HCV RNA test to support the diagnosis of active HCV infection. Blood Structure of right upper limb / Unknown 02/20/2023 10:01 AM EDT 02/21/2023 Comment:Blood Release to [facility] (AMBUL[facility]) - 02/21/2023 11:07 AM EDT Performed at: ??01 - [address] ??[id number] Property Caretaker: Toby Rosario PhD, Phone: ??[phone] us Manjit Gorman MD LAB BLOOD ORDERABLES Final Res ult [facility]) [address] [place] [address], [place] [phone] [facility] [address] [place] [address], [place] [phone] * ECG 12-LEAD (02/20/2023 9:17 AM EDT) Narrative ECG - 02/20/2023 9:17 AM EDT Manjit Gorman MD ? 02/20/2023 12:44 PM ECG 12 Lead Date/Time: 02/20/2023 9:17 AM Performed by: Manjit Gorman MD Authorized by: Manjit Gorman MD Comparison: compared with previous ECG from 02/14/2022 Comparison to previous ECG: Normal sinus rhythm rate 75 with first-degree AV block, no ischemic change, no change versus prior tracing Manjit Gorman MD ECG ORDERABLES Final Result Performing Organization Address City/[facility]/ZIP Co de Phone Number ECG documented in this encounter Visit Diagnoses Diagnosis Encounter for general adult medical examination with abnormal findings- Primary Prediabetes Other abnormal glucose Primary hypertension Unspecified essential hypertension Dyslipidemia Other and unspecified hyperlipidemia Vitamin D deficiency Prostate cancer Malignant neoplasm of prostate Cancer of base of tongue Malignant neoplasm of base of tongue Other male erectile dysfunction Meralgia paresthetica of right side Onychomycosis Dermatophytosis of nail Need for hepatitis C screening test Special screening examination for other specified viral diseases documented in this encounter Care Teams Regulatory Services Consultant Relationship Specialty Start Date End Date Manjit Gorman MD [address] [place] [address] S[place]NA MARTINEZ [address] PCP - General Internal Medicine 09/18/21 documented as of this encounter
--- OUTSIDE RECORDS SUMMARY | 2024-07-27 06:50 | XMS_ITS | Encounter Summary ---
Author Organization [facility] Address [address] [place] [address] Care Team Providers Care Principal Administrative Clerk Name Role Phone Manjit Gorman MD Primary Care Provider [phone] Reason for Visit * Reason Comments Prostate Cancer * Consultation (Routine) - Closed Specialty Diagnoses / Procedures Referred By Contac t Referred To Contact Urology Diagnoses Prostate cancer Jann Callejas MD [address] [place] [address] Phone: tel: fax: Pratik Teague MD [address] [place] [address] Phone: tel: fax: Referral ID Status Reason Start Date Expiration Date V isits Requested Visits Authorized [id number] Closed Specialty Services Required 09/18/2021 09/18/2022 1 1 Encounter Details Date Type Department Care Team (Late st Contact Info) Description 10/24/2021 11:00 AM EST Office Visit [facility] [address] [facility] [address] [place] [address] Pratik Teague MD [address] [place] [address] Prostate cancer (Primary Dx) Social History Tobacco [...] Taken Comments Blood Pressure - - Pulse - - Temperature - - Respiratory Rate - - Oxygen Saturation - - Inhaled Oxygen Concentration - - Weight 85.7 kg (189 lb) 10/24/2021 11:00 AM EST Height 188 cm (6' 2 ) 10/24/2021 11:00 AM EST Body Mass Index 24.27 10/24/2021 11:00 AM EST documented in this encounter Progress Notes * Pratik Teague MD - 10/24/2021 11:00 AM EST Images from the original note were not included. Prostate Cancer Office Visit Patient Name: Erick Sierra : 1950 Chief Complaint: Prostate Cancer. Chief Complaint Patient presents with ??? Prostate Cancer Referring Provider: Jann Callejas MD History of Present Illness: Erick Sierra is a 71 y.o. male who presents today with recently diagnosed prostate cancer. Patient was diagnosed with Preston 3+4 equal 7, grade group 2 prostate cancer.He follows with urologist Dr. Mina. He was referred to Dr. Jann Callejas for radiotherapy, is undergoing planned CyberKnife treatment. He presents today to discuss fiducial marker placement to aid in treatment planning. Denies significant lower urinary tract symptoms. Subjective Review of System: Review of Systems Constitutional: Negative. Negative for chills, fatigue, fever and unexpected weight change. HENT: Negative. Negative for sore throat. Eyes: Negative. Negative for visual disturbance. Respiratory: Negative. Negative for cough, chest tightness and shortness of breath. Cardiovascular: Negative. Negative for chest pain and leg swelling. Gastrointestinal: Negative. Negative for blood in stool, constipation, diarrhea, nausea, rectal pain and vomiting. Genitourinary: Negative. Negative for decreased urine volume, difficulty urinating, dysuria, enuresis, flank pain, frequency, genital sores, hematuria and urgency. Musculoskeletal: Negative. Negative for back pain and joint swelling. Skin: Negative. Negative for rash and wound. Neurological: Negative. Negative for seizures, speech difficulty, weakness and headaches. Psychiatric/Behavioral: Negative. Negative for confusion, sleep disturbance and suicidal ideas. Thepatient is not nervous/anxious. I have reviewed the ROS documented by my clinical staff, I have updated appropriately and I agree. Karli Frank MA Past Medical History: Past Medical History: Diagnosis Date ??? Hypertension ??? Prostate cancer (HCC) ??? Skin cancer Past Surgical History: Past Surgical History: Procedure Laterality Date ??? COLONOSCOPY 2017 good x 10years ??? PROSTATE BIOPSY ??? TONSILLECTOMY ??? VASECTOMY Family History: Family History Problem Relation Age of Onset ??? Heart disease Mother ??? Heart disease Father Social History: Social History Socioeconomic History ??? Marital status: Tobacco Use ??? Smoking status: Never Smoker ??? Smokeless tobacco: Never Used Vaping Use ??? Vaping Use: Never used Substance and Sexual Activity ??? Alcohol use: Yes Alcohol/week: 1.0 standard drink Types: 1 Cans of beer per week ??? Drug use: Defer ??? Sexual activity: Defer Medications: Current Outpatient Medications: ??? amLODIPine-benazepril (LOTREL 2.5-10) 2.5-10 MG per capsule, , Disp: , Rfl: ??? multivitamin with minerals (MULTIVITAMIN ADULT PO), Take 1 tablet by mouth Daily., Disp: , Rfl: ??? sildenafil (VIAGRA) 100 MG tablet, Take 100 mg by mouth Daily As Needed for Erectile Dysfunction., Disp: , Rfl: ??? terbinafine (lamiSIL) 250 MG tablet, , Disp: , Rfl: Allergies: No Known Allergies IPSS Questionnaire (AUA-7): Over the past month??? 1) Incomplete Emptying How often have you had a sensation of not emptying your bladder? 0 - Not at all 2) Frequency How often have you had to urinate less than every two hours? 1 - Less than 1 time in 5 3) Intermittency How often have you found you stopped and started again several times when you urinated? 0 - Not at all 4) Urgency How often have you found [...] typically get up at night to urinate? 4 - 4 times Total Score: 6 Quality of life due to urinary symptoms: If you were to spend the rest of your life with your urinary condition the way it is now, how wouldyou feel about that? 0-Delighted Urine Leakage (Incontinence) 0-No Leakage Sexual Health Inventory for Men (SHANNA) Over the past 6 months: 1. How do you rate your confidence that you could get and keep an erection? 5 - Very high 2. When you had erections with sexual stimulation, how often were your erections hard enough for penetration (entering your partner)? 4 - Most times ( much more than, half the time) 3. During sexual intercourse, how often were you able to maintain your erection after you had penetrated (entered) your partner? 4 - Most times ( much more than, half the time) 4. During sexual intercourse, how difficult was it to maintain your erection to completion of intercourse? 4 - Sightly difficult 5. When you attempted sexual intercourse, how often was it satisfactory for you? 5 - Almost always or always Total Score: 22 The Sexual Health Inventory for Men further classifies ED severity with the following breakpoints: 1-7 (Severe ED) 8-11 (Moderate ED) 12-16 (Mild to Moderate ED) 17-21 (Mild ED) Objective Physical Exam: Vital Signs: Vitals: 10/24/21 1100 Weight: 85.7 kg (189 lb) Height: 188 cm (74 ) PainSc: 0-No pain Body mass index is 24.27 kg/m??. Physical Exam Vitals and nursing note reviewed. Constitutional: Appearance: Normal appearance. He is normal weight. Cardiovascular: Comments: Well-perfused Pulmonary: Effort: Pulmonary effort is normal. Abdominal: General: Abdomen is flat. Palpations: Abdomen is soft. Musculoskeletal: General: Normal range of motion. Skin: General: Skin is warm and dry. Neurological: General: No focal deficit present. Mental Status: He is alert and oriented to person, place, and time. Mental status is at baseline. Psychiatric: Mood and Affect: Mood normal. Behavior: Behavior normal. Thought Content: Thought content normal. Judgment: Judgment normal. Labs: No results found for: PSA No results found for: WBC, HGB, HCT, MCV, PLT No results found for: GLUCOSE, BUN, CREATININE, EGFRIFNONA, EGFRIFAFRI, BCR, K, CO2, CALCIUM, PROTENTOTREF, ALBUMIN, LABIL2, BILIRUBIN, AST, ALT Images: No Images in the past 120 days found.. Measures: Tobacco: Erick Sierra reports that he has never smoked. He has never used smokeless tobacco.. I have educated him on the risk of diseases from using tobacco products. Assessment / Plan Assessment: MrVeronica Sierra is a 71 y.o. male who presented today with recently diagnosed prostate cancer. He was diagnosed with grade group 2, Preston 3+4 = 7 prostate cancer. No evidence of metastatic disease on staging imaging. He follows with urologist Dr. Mina. He was referred to Dr. Jann Callejas ofradiation oncology for CyberKnife, radiotherapy treatment. He presents today to discuss fiducial marker placement to aid in planning prior to treatment. Diagnoses and all orders for this visit: 1. Prostate cancer (HCC) (Primary) - POC Urinalysis Dipstick, Automated Patient Education: Today we discussed the indication for fiducial marker placement. We discussed the risks and benefits of this procedure. We discussed specific risk of infection and requirement of antibiotic therapy prior. We will send a prescription to his pharmacy to pick up operator. We discussed that he will continue to f [facility] with Dr. Mina and Dr. Callejas for the remainder of his treatment plan. Understanding agreeable plan of care. Follow Up: 11/04/2021 for Fiducial Marker Placement I spent approximately 45 minutes providing clinical care for this patient; including review of patient's chart and provider documentation, face to face time spent with patient in examination room (obtaining history, performing physical exam, discussing diagnosis and management options), placing orders, and completing patient documentation. Pratik Teague MD [facility] [place] documented in this encounter Plan of Treatment Upcoming Encounters Date Type Department Care Team (Late st Contact Info) Description 08/22/2024 8:30 AM EST Office Visit [facility] [address] [place] [address] [place] MARTINEZ [id number] Manjit Gorman MD [address] [place] [address] [place] M[place]INEZ [address] 02/27/2025 9:00 AM EDT Office Visit [facility] [address] [place] [address] Manjit Gorman MD [address] [place] [address] documented as of this encounter Procedures Procedure Name Priority Date/Time Associated Diagnosis Comments POCT URINALYSIS DIPSTICK, AUTOMATED Routine 10/24/2021 11:09 AM EST Prostate cancer documented in this encounter Results * POC Urinalysis Dipstick, Automated (10/24/2021 11:09 AM EST) Color Yellow Yellow, Straw, Dark Yellow, Jordana [facility] Clarity, UA Clear Clear [facility] Specific [place] 1.030 1.005 - 1.030 [facility] pH, Urine 6.0 5.0 - 8.0 [facility] Leukocytes Negative Negative [facility] Nitrite, UA Negative Negative [facility] Protein, POC Negative Negative mg/dL [facility] Glucose, UA Negative Negative, 1000 mg/dL (3+) mg/dL [facility] Ketones, UA Negative Negative [facility] Urobilinogen, UA Normal Normal [facility] Bilirubin Negative Negative [facility] Blood, UA Negative Negative [facility] Lot Number [id number] [facility] Expiration Date [facility] Urine 10/24/2021 11:0 9 AM EST Pratik Teague MD POINT OF CARE TEST ORDERABLES F inal Result [facility]
[address] [place] [address], documented in this encounter Visit Diagnoses Diagnosis Prostate cancer- Primary Malignant neoplasm of prostate documented in this encounter Care Teams Principal Administrative Clerk Relationship Specialty Start Date End Date Manjit Gorman MD [address] [place] [address] PCP - General Internal Medicine 09/18/21 documented as of this encounter
--- OUTSIDE RECORDS SUMMARY | 2024-07-27 06:50 | XMS_ITS | Encounter Summary ---
Author Organization [facility] Address [address] [place] [address] Care Team Providers Care Manager In Home Name Role Phone Manjit Gorman MD Primary Care Provider [phone] Reason for Visit * Auth/Cert Specialty Diagnoses / Procedures Referred By Contac t Referred To Contact Diagnoses Malignant neoplasm of prostate Procedures CHG RADN RX DELIV,BODY, EACH FRACTION Referral ID Status Reason Start Date Expiration Date Visits Re quested Visits Authorized [id number] 1 1 Encounter Details Date Type Department Care Team (Latest Contact Info) Description 01/17/2022 5:25 AM EDT - 01/17/2022 11:59 PM EDT Hospital Encounter [facility] [address] [facility] [address] [place] [address] Discharge Disposition: Home or Self [...] 2.5-10) 2.5-10 MG per capsule 07/11/2021 10/02/2022 sildenafil (VIAGRA) 100 MG tablet Take 100 [...] Description 08/22/2024 8:30 AM EST Office Visit [facility] [address] [place] [address] [place] [address] Manjit Gorman MD [address] [place] [address] [place] M[place]INEZ [address] 02/27/2025 9:00 AM EDT Office Visit [address] [place] [address] Manjit Gorman MD [address] [place] [address] [place] M[place]INE[place] [address] documented as of this encounter Visit Diagnoses Not on filedocumented in this encounter Care Teams Manager In Home Relationship Specialty Start Date End Date Manjit Gorman MD [address] [place] [address] [place] M[place]INEZ [address] PCP - General Internal Medicine 09/18/21 documented as of this encounter
--- OUTSIDE RECORDS SUMMARY | 2024-07-27 06:50 | XMS_ITS ---
Author Organization [facility] Address [address] [place] [address] Care Team Providers Care Shoe Designer Name Role Phone Manjit Gorman MD Primary Care Provider [phone] Active Problems Problem Noted Date Diagnosed Date [...] Prediabetes 04/15/2022 Scoliosis 04/15/2022 Skin cancer 04/15/2022 Current Oncology Plans No current plan information found. Past Plans Oncology Treatment Plan Name Start Date Discontinue Date Treatment Medications Discontinue Reason Plan Provider Cycles CISplatin + XRT Every 21 Days 3 02/26/2023 CISplatin (Platinol) chemo IVPB Therapy Complete Germaine Alejandro MD 3 of 3 cycles completed Radiation Treatments * Plan Last Treated On Elapsed Days Fractions Treated Prescribed Fraction Dose Prescribed Total Dose RtOropharynx 12/30/2022 49 35 of 35 200 cGy 7,000 c Gy Reference Point Last Treated On Elapsed Days Session Dose Total Dose RtOropharyn+Neck 12/30/2022 49 200 cGy 7,000 cG y Resolved Problems Problem Noted Date Diagnosed Date Resolved Date CINV (chemotherapy-induced n ausea and vomiting) 11/10/2022 02/26/2023 Neoplasm related pain 11/10/20222022 Benign prostatic hyperplasia 04/15/2022 11/10/2022
--- OUTSIDE RECORDS SUMMARY | 2024-07-27 06:50 | XMS_ITS | Encounter Summary ---
Author Organization [facility] Address [address] [place] [id number] Care Team Providers Care Rubber Covering Machine Operator Name Role Phone Manjit Gorman MD Primary Care Provider [phone] Encounter Details Date Type Department Care Team (Late st Contact Info) Description 02/23/2023 Telephone [facility] [address] [place] [address] Manjit Gorman MD [address] [place] [id number] Social History Tobacco Use Types Packs/Day Years [...] Telephone Encounter - Manjit Gorman MD - 02/23/2023 8:39 AM EDT Phone conversation with patient regarding recent lab testing including urinalysis revealing some uric acid crystals otherwise normal, vitamin D normal, lipid profile normal, hemoglobin A1c 5.4%, hepatitis C negative. Note patient had a recent CBC revealing mild anemia of 11.7 and TSH through [facility], following up with oncology. Advised to drink plenty of fluids given the uric acid crystals. No other acute problems or concerns at this time. documented in this encounter Plan of Treatment Upcoming Encounters Date Type Department Care Team (Late st Contact Info) Description 08/22/2024 8:30 AM EST Office Visit [facility] [address] [place] [address] [place] [address] Manjit Gorman MD [address] [place] [address] [place] M[place]INEZ [address] 02/27/2025 9:00 AM EDT Office Visit [facility] [address] [place] [address] Manjit Gorman MD [address] [place] [address] [place] [address] documented as of this encounter Visit Diagnoses Not on filedocumented in this encounter Care Teams Rubber Covering Machine Operator Relationship Specialty Start Date End Date Manjit Gorman MD [facility] [place] [address] PCP - General Internal Medicine 09/18/21 documented as of this encounter
--- OUTSIDE RECORDS SUMMARY | 2024-07-27 06:50 | XMS_ITS | Encounter Summary ---
Author Organization [facility] Address [address] [place] [address] Care Team Providers Care Education Dean Name Role Phone Manjit Gorman MD Primary Care Provider [phone] Encounter Details Date Type Department Care Team (Latest Contact Info) Description 09/18/2021 5:30 AM EST - 09/18/2021 11:59 PM EST Hospital Encounter [facility] [address] [facility] [address] [place] [address] Discharge Disposition: Home or Self Care Social [...] Daily As Needed for Erectile Dysfunction. 04/15/2022 terbinafine (lamiSIL) 250 MG tablet 09/17/2021 02/19/2023 documented as of this encounter Plan of Treatment Upcoming Encounters Date Type Department Care Team (Late st Contact Info) Description 08/22/2024 8:30 AM EST Office Visit [facility] [address] [place] [address] [place] [address] Manjit Gorman MD [address] [place] [address] [place] [address] 02/27/2025 9:00 AM EDT Office Visit [facility] [address] [place] [address] Manjit Gorman MD [address] [place] [address] [place] [address] documented as of this encounter Visit Diagnoses Not on filedocumented in this encounter Care Teams Education Dean Relationship Specialty Start Date End Date Manjit Gorman MD [address] [place] [address] [place] [address] PCP - General Internal Medicine 09/18/21 documented as of this encounter
--- OUTSIDE RECORDS SUMMARY | 2024-07-27 06:50 | XMS_ITS | Encounter Summary ---
Author Organization [facility] Address [address] [place] [phone] Care Team Providers Care Chip Bin Operator Name Role Phone Manjit Gorman MD Primary Care Provider Reason for Visit * Reason Onset Date Comments Med Refill 10/02/2022 Encounter Details Date Type Department Care Team (Late st Contact Info) Description 10/02/2022 Refill [facility] [address] [place] [address] [place] [address] Manjit Gorman MD [address] [place] [address] [place] [address] Social History Tobacco Use Types [...] encounter Miscellaneous Notes * Telephone Encounter - Joe Flood RegSched Rep - 10/02/2022 3:26 PM EST Caller: Erick Sierra Relationship: Self Best call back number: [phone] Requested Prescriptions: Requested Prescriptions Pending Prescriptions Disp Refills ??? amLODIPine-benazepril (LOTREL 2.5-10) 2.5-10 MG per capsule Pharmacy where request should be sent: [id number] - [place] - [address] [phone] [facility] [phone] Additional details provided by patient: Does the patient have less than a 3 day supply: [] Yes [x] No Would you like a call back once the refill request has been completed: [] Yes [x] No If the office needs to give you a call back, can they leave a voicemail: [] Yes [x] No documented in this encounter Plan of Treatment Upcoming Encounters Date Type Department Care Team (Late st Contact Info) Description 08/22/2024 8:30 AM EST Office Visit [address] [place] [phone] Manjit Gorman MD [address] [place] [address] [place] [address] 02/27/2025 9:00 AM EDT Office Visit [address] [place] [address] Manjit Gorman MD [address] [place] [address] [place] [address] documented as of this encounter Visit Diagnoses Not on filedocumented in this encounter Care Teams Chip Bin Operator Relationship Specialty Start Date End Date Manjit Gorman MD [address] [place] [address] [place] [address] PCP - General Internal Medicine 09/18/21 documented as of this encounter
--- OUTSIDE RECORDS SUMMARY | 2024-07-27 06:50 | XMS_ITS | Encounter Summary ---
Author Organization [facility] Address [address] [place] [address] Care Team Providers Care Ceramic Maker Demonstrator Name Role Phone Manjit Gorman MD Primary Care Provider [phone] Reason for Referral * Diagnostic Imaging (Routine) - Closed Specialty Diagnoses / Procedures Referred By Contac t Referred To Contact Diagnoses Dysphagia, unspecified type Odynophagia Procedures US Head Neck Soft Tissue Manjit Gorman MD [address] [place] [address] [place] [address] Phone: tel: fax: [facility] [address] [place] [address] Phone: tel: Referral ID Status Reason Start Date Expiration Date Visits Re quested Visits Authorized [id number] Closed 07/07/2022 07/07/2023 1 1 * Consultation (Routine) - Closed Specialty Diagnoses / Procedures Referred By Contac t Referred To Contact Otolaryngology Diagnoses Dysphagia, unspecified type Odynophagia Manjit Gorman MD [address] [place] [address] [place] [address] Phone: tel: fax:[phone] Liudmila Salinas MD [address] [place] [address] [place] [address] Phone: tel: fax: Referral ID Status Reason Start Date Expiration Date Visits Requested Visits Authorized [id number] Closed Patient Preference 07/07/2022 07/07/2023 1 1 Reason for Visit * Reason Comments pressure in throat Does this when swoll ows. With eating and drinking Encounter Details Date Type Department Care Team (Late st Contact Info) Description 07/07/2022 8:30 AM EDT Office Visit [facility]IMARY [facility]ARE [address] [place] [address] [place] [address] Manjit Gorman MD [address] [place] [address] Dysphagia, unspecified type (Primary Dx); Odynophagia; Benign hypertension Social History Tobacco Use Types Packs/Day Years [...] Sign Reading Time Taken Comments Blood Pressure 146/86 07/07/2022 8:33 AM EDT Pulse 82 07/07/2022 8:33 AM EDT Temperature 36.4 ??C (97.5 ??F) 07/07/2022 8:33 AM ED T Respiratory Rate - - Oxygen Saturation 98% 07/07/2022 8:33 AM EDT Inhaled Oxygen Concentration - - Weight 84.4 kg (186 lb) 07/07/2022 8:33 AM EDT Height 182.9 cm (6') 07/07/2022 8:33 AM EDT Body Mass Index 25.23 07/07/2022 8:33 AM EDT documented in this encounter Progress Notes * Manjit Gorman MD - 07/07/2022 8:30 AM EDT Images from the original note were not included. Follow Up Office Visit Date: 07/07/2022 Patient Name: Erick Sierra : 1950 Chief Complaint: Chief Complaint Patient presents with ??? pressure in throat Does this when swollows. With eating and drinking History of Present Illness: Erick Sierra is a 71 y.o. male who is here today for onset in 03/2022 with a vague pressure-like discomfort on the right mid neck when he would swallow, not really describe this pain again just pressure-like, noting the symptoms are gotten progressively worse, over the last 2 to 3 weeks noting slight tenderness when he palpates, and also having a slight sensation at times that food starts to hang up when he starts to swallow up in the level of the neck, requiring him to swallow 2 or 3 times rather than once. No actual heartburn, no overt nausea or vomiting, no fevers chills or sweats, no unexplained weight loss, no nasal congestion or drainage of significance other than mild seasonal allergy symptoms. He has been to the dentist initially in 03/2022 and again just in the last month, having been given a mouthguard which did not help his symptoms. No other dental problems were noted by history. No history of tobacco use, drinks on average 1 and occasionally 2 beers daily. He does have a history of prostate cancer having completed CyberKnife therapy recently.Related, history of hypertension, blood pressures averaging 130s over low 80s, though slightly elevated today given that he is nervous about his symptoms. Unrelated, patient indicates he just recently got his flu vaccine and also his bivalent COVID-19 vaccine. Subjective Review of Systems: Review of Systems I have reviewed the patients family history, social history, past medical history, past surgical history and have updated it as appropriate. Medications: Current Outpatient Medications: ??? amLODIPine-benazepril (LOTREL 2.5-10) 2.5-10 MG per capsule, , Disp: , Rfl: ??? multivitamin with minerals tablet tablet, Take 1 tablet by mouth Daily., Disp: , Rfl: ??? tadalafil (CIALIS) 5 MG tablet, TAKE 1 OR 2 TABLETS BY MOUTH DAILY NEEDED FOR ED, Disp: , Rfl: ??? terbinafine (lamiSIL) 250 MG tablet, , Disp: , Rfl: Allergies: No Known Allergies Objective Physical Exam: Please see above Vital Signs: Vitals: 07/07/22 0833 BP: 146/86 BP Location: Left arm Patient Position: Sitting Cuff Size: Adult Pulse: 82 Temp: 97.5 ??F (36.4 ??C) TempSrc: Temporal SpO2: 98% Weight: 84.4 kg (186 lb) Height: 182.9 cm (72 ) Body mass index is 25.23 kg/m??. Physical Exam General: Very pleasant tall slender healthy-appearing 71-year-old white male who is in no acute distress. Head and neck: TMs and canals bilaterally clear, nares minimal congestion with scant mucus, nonspecific, sinuses nontender, oropharynx is clear with some prior dental work but no active decay, no evidence of bruxism, mucous membranes are moist and clear, neck with what appears to be a very small less than 1/2 cm palpable lymph node in the right mid to upper anterior cervical chain, nontender, mobile, with no other adenopathy or masses, no thyromegaly, does have significant decreased range of motion to rotation and extension with fair flexion related to degenerative cervical changes, no periclavicular inguinal or axillary adenopathy, Lungs clear with no tachypnea or cough Cardiac regular rate rhythm with a suggestion of a faint 0/6 to 1/6 systolic murmur in the right upper sternal border, no gallops or rubs Abdomen flat soft nontender nondistended with no organomegaly or masses and normal bowel sounds Procedures Results: Labs: No results found for: HGBA1C, CMP, CBCDIFFPANEL, CREAT, TSH POCT Results (if applicable): Results for orders placed or performed in visit on 04/15/22 Basic Metabolic Panel Specimen: Blood Blood Release to [facility] Result Value Ref Range Glucose 102 (H) 65 - 99 mg/dL BUN 23 8 - 27 mg/dL Creatinine 1.23 0.76 - 1.27 mg/dL EGFR Result 63 >59 mL/min/1.73 BUN/Creatinine Ratio 19 10 - 24 Sodium 144 134 - 144 mmol/L Potassium 5.0 3.5 - 5.2 mmol/L Chloride 107 (H) 96 - 106 mmol/L Total CO2 21 20 - 29 mmol/L Calcium 9.5 8.6 - 10.2 mg/dL CBC & Differential Specimen: Blood Blood Release to [facility] Result Value Ref Range WBC 5.6 3.4 - 10.8 x10E3/uL RBC 4.82 4.14 - 5.80 x10E6/uL Hemoglobin 15.0 13.0 - 17.7 g/dL Hematocrit 43.4 37.5 - 51.0 % MCV 90 79 - 97 fL MCH 31.1 26.6 - 33.0 pg MCHC 34.6 31.5 - 35.7 g/dL RDW 13.0 11.6 - 15.4 % Platelets 258 150 - 450 x10E3/uL Neutrophil Rel % 61 Not Estab. % Lymphocyte Rel % 24 Not Estab. % Monocyte Rel % 11 Not Estab. % Eosinophil Rel % 2 Not Estab. % Basophil Rel % 1 Not Estab. % Neutrophils Absolute 3.4 1.4 - 7.0 x10E3/uL Lymphocytes Absolute 1.4 0.7 - 3.1 x10E3/uL Monocytes Absolute 0.6 0.1 - 0.9 x10E3/uL Eosinophils Absolute 0.1 0.0 - 0.4 x10E3/uL Basophils Absolute 0.1 0.0 - 0.2 x10E3/uL Immature Granulocyte Rel % 1 Not Estab. % Immature Grans Absolute 0.0 0.0 - 0.1 x10E3/uL Imaging: No valid procedures specified. Assessment / Plan Assessment/Plan: Diagnoses and all orders for this visit: 1. Dysphagia, unspecified type (Primary) - Ambulatory Referral to ENT (Otolaryngology) - US Head Neck Soft Tissue; Future Objective exam unremarkable other than what appears to be a very small benign- appearing lymph node in the right mid to upper anterior cervical region. Given subjective symptoms of dysphagia with somemild odynophagia, will obtain ultrasound of the head and neck and refer to ENT for further evaluation. 2. Odynophagia - Ambulatory Referral to ENT (Otolaryngology) - US Head Neck Soft Tissue; Future See above. 3. Benign hypertension Hypertension, stage II acutely, chronically normotensive. Continue current regimen of amlodipine/benazepril 2.5/10 mg daily with regular monitoring, ideal parameters discussed. Follow Up: Return if symptoms worsen or fail to improve. At [facility], we believe that sharing information builds trust and better relationships. You are receiving this note because you recently visited [facility]. It is possible you will see health information before a provider has talked with you about it. This kind of information can be easy to misunderstand. To help you fully understand what it means for your health, we urge you to discussthis note with your provider. Manjit Gorman MD [facility] Jania Answers for HPI/ROS submitted by the patient on 07/01/2022 What is the primary reason for your visit?: Other Please describe your symptoms.: I feel pressure on the right side of my throat when I swallow saliva or food. sometimes it's dificult to swallow food. Have you had these symptoms before?: No How long have you been having these symptoms?: Greater than 2 weeks Please list any medications you are currently taking for this condition.: none Please describe any probable cause for these symptoms. : unknown --- but my dentist took x-rays andruled out dental issues documented in this encounter Plan of Treatment Upcoming Encounters Date Type Department Care Team (Late st Contact Info) Description 08/22/2024 8:30 AM EST Office Visit [facility] [address] Manjit Gorman MD [facility] [place] [address] 02/27/2025 9:00 AM EDT Office Visit [place] [address] [place] [address] Manjit Gorman MD [facility] [place] [address] documented as of this encounter Results * US Head Neck Soft Tissue (08/12/2022) Anatomical Region Laterality Modality Head and Neck Ultrasound us Manjit Gorman MD [facility] [place]LES Final Result documented in this encounter Visit Diagnoses Diagnosis Dysphagia, unspecified type- Primary Odynophagia Dysphagia, unspecified Benign hypertension Essential hypertension, benign documented in this encounter Care Teams Ceramic Maker Demonstrator Relationship Specialty Start Date End Date Manjit Gorman MD [address] [place] [address] PCP - General Internal Medicine 09/18/21 documented as of this encounter
--- OUTSIDE RECORDS SUMMARY | 2024-07-27 06:50 | XMS_ITS | Encounter Summary ---
Author Organization [facility] Address [address] [place] [id number] Care Team Providers Care Offset Press Operator Helper Name Role Phone Manjit Gorman MD Primary Care Provider [phone] Reason for Visit * Reason Comments Med Refill Encounter Details Date Type Department Care Team (Late st Contact Info) Description 03/27/2023 Refill [facility] [address] [place] [address] [place] [address] Manjit Gorman MD [address] [place] [address] [place] [address] Social History Tobacco Use Types Packs/Day [...] on file documented as of this encounter Plan of Treatment Upcoming Encounters Date Type Department Care Team (Late st Contact Info) Description 08/22/2024 8:30 AM EST Office Visit [facility] [address] [place] [address] [place] [address] Manjit Gorman MD [address] [place] [address] [place] [address] 02/27/2025 9:00 AM EDT Office Visit [facility] [address] [place] [address] Manjit Gorman MD [address] [place] [address] documented as of this encounter Visit Diagnoses Not on filedocumented in this encounter Care Teams Offset Press Operator Helper Relationship Specialty Start Date End Date Manjit Gorman MD [address] [place] [address] PCP - General Internal Medicine 09/18/21 documented as of this encounter
--- OUTSIDE RECORDS SUMMARY | 2024-07-27 06:50 | XMS_ITS | Encounter Summary ---
Author Organization [facility] Address [address] [place] [address] Care Team Providers Care Hog Worker Name Role Phone Manjit Gorman MD Primary Care Provider [phone] Reason for Referral * Diagnostic Imaging (Routine) - Closed Specialty Diagnoses / Procedures Referred By Contac t Referred To Contact Radiology Diagnoses Prostate cancer Procedures MRI Cyberknife Pelvis Without Contrast Jann Callejas MD [address] [place] [address] Phone: tel: fax: [place] [phone] Phone: tel: Referral ID Status Reason Start Date Expiration Date Visits Re quested Visits Authorized [id number] Closed 09/24/2021 11/21/2021 1 1 Reason for Visit * Diagnostic Imaging (Routine) - Closed Specialty Diagnoses / Procedures Referred By Contac t Referred To Contact Radiology Diagnoses Prostate cancer Procedures MRI Cyberkn[place] [address] [place], [place] [address] Phone: tel: fax: [address] [address] Phone: tel: Referral ID Status Reason Start Date Expiration Date Visits Re quested Visits Authorized [id number] Closed 09/24/2021 11/21/2021 1 1 Encounter Details Date Type Department Care Team (Late st Contact Info) Description 11/12/2021 10:28 AM EST - 11/12/2021 11:59 PM EST Hospital Encounter [facility] MRI [address] [place] [address] Jann Callejas MD [address] [place] [address] Prostate cancer Discharge Disposition: Home or Self Care Social [...] Visit [facility] [address] [place] [address] [place] [phone] Manjit Gorman MD [address] [place] [address] [place] [address] 02/27/2025 9:00 AM EDT Office Visit [facility] [address] [place] [address] [place] [address] Manjit Gorman MD [address] [place] [address] documented as of this encounter Procedures Procedure Name Priority Date/Time Associated Diagnosis Comments MRI CYBERKNIFE PELVIS WO CONTRAST Routine 11/12/2021 12:15 PM EST Prostate cancer documented in this encounter Results * MRI Cyberknife Pelvis Without Contrast (11/12/2021 12:15 PM EST) Anatomical Region Laterality Modality Body, Pelvis N/A Magnetic Resonan ce 11/12/2021 12:3 9 PM EST Impressions 11/12/2021 12:39 PM EST Enlarged prostate with heterogeneous signal including areas of signal void related to fiducial markers. No extracapsular extension or seminal vesicle involvement. This report was finalized on 11/12/2021 12:39 PM by Kingsley Garcia. Narrative 11/12/2021 12:39 PM EST DATE OF EXAM: 11/12/2021 11:34 AM PROCEDURE: MRI CYBERKNIFE PELVIS WO CONTRAST- INDICATIONS: prostate cancer; C10-Broaljxur neoplasm of prostate COMPARISON: No comparisons available. TECHNIQUE: MRI pelvis, single axial T2 gradient echo sequence, sagittal T2 haste localizer COMPARISON: None FINDINGS: Enlarged prostate with heterogeneous signal including low-signal areas related to fiducial markers. No extracapsular extension or seminal vesicle involvement. Unremarkable urinary bladder. No suspicious pelvic soft tissue nodularity or definite aggressive osseous lesion. Procedure Note Kingsley Garcia MD - 11/12/2021 DATE OF EXAM: 11/12/2021 11:34 AM PROCEDURE: MRI CYBERKNIFE PELVIS WO CONTRAST- INDICATIONS: prostate cancer; H92-Ezlylrhdf neoplasm of prostate COMPARISON: No comparisons available. TECHNIQUE: MRI pelvis, single axial T2 gradient echo sequence, sagittal T2 haste localizer COMPARISON: None FINDINGS: Enlarged prostate with heterogeneous signal including low-signal areas related to fiducial markers. No extracapsular extension or seminal vesicle involvement. Unremarkable urinary bladder. No suspicious pelvic soft tissue nodularity or definite aggressive osseous lesion. IMPRESSION: Enlarged prostate with heterogeneous signal including areas of signal void related to fiducial markers. No extracapsular extension or seminal vesicle involvement. This report was finalized on 11/12/2021 12:39 PM by Kingsley Garcia. us Jann Callejas MD IMG MRI ORDERABLES Final Resu lt documented in this encounter Visit Diagnoses Diagnosis Prostate cancer Malignant neoplasm of prostate documented in this encounter Care Teams Hog Worker Relationship Specialty Start Date End Date Manjit Gorman MD [address] [place] [address] PCP - General Internal Medicine 09/18/21 documented as of this encounter
--- OUTSIDE RECORDS SUMMARY | 2024-07-27 06:51 | XMS_ITS | Encounter Summary ---
Author Organization [facility] Address [address] [place], [place] [address] Care Team Providers Care Actimize Architect Name Role Phone Manjit Gorman MD Primary Care Provider Olegario Juarez MD Unavailable [phone] Encounter Details Date Type Department Care Team (Latest Contact Info) Description 10/13/2023 Travel Social History Tobacco Use Types Packs/Day Years Used Date Smoking Tobacco: Never Smokeless Tobacco: Never Alcohol Use Standard Drinks/Week Comments Yes 0 [...] Care Team (Late st Contact Info) Description 10/17/2024 8:00 AM EST Clinical Support [facility] [address] [address] 10/17/2024 9:00 AM EST Appointment [facility] PET Scan [address] [place] [address] 10/17/2024 10:00 AM EST Appointment [facility] PET Scan [address] [place] [address] 10/17/2024 11:00 AM EST Office Visit [facility] [address] [phone] Juan Pablo Cee MD [address] [facility] [address] [place] [address] 10/17/2024 1:00 PM EST Clinical Support [facility] [address] [place] [address] 10/17/2024 2:20 PM EST Appointment [facility] Rad[facility] [address] [place] [address] 10/20/2024 3:30 PM EST Office Visit [facility] 800 [facility], 2nd [place] [address] Germaine Alejandro MD [address] [place] [address] documented as of this encounter Visit Diagnoses Not on filedocumented in this encounter Additional Health Concerns Assessment Noted Time A fall risk assessment has been complete d for the patient 08/03/2023 9:50 AM EST documented as of this encounter Care Teams Actimize Architect Relationship Specialty Start Date End Date Manjit Gorman MD [address] [place], [place] [address] PCP - General 09/23/22 Olegario Juarez MD [address] [place] [address] Consulting Physician Radiation Oncology 10/29/2207/05 documented as of this encounter
--- OUTSIDE RECORDS SUMMARY | 2024-07-27 06:51 | XMS_ITS | Encounter Summary ---
Author Organization [facility] Address [address] [place], [place] [address] Care Team Providers Care Logistics Assistant Name Role Phone Manjit Gorman MD Primary Care Provider Olegario Juarez MD Unavailable [phone] Encounter Details Date Type Department Care Team (Latest Contact Info) Description 02/14/2024 Travel Social History Tobacco Use Types Packs/Day [...] [facility] [address] [address] 10/17/2024 9:00 AM EST Appointment [facility] PET Scan [address] [place] [address] 10/17/2024 10:00 AM EST Appointment [facility] PET Scan [address] [place] [address] 10/17/2024 11:00 AM EST Office Visit [facility] [address] [phone] Juan Pablo Cee MD [address] [facility] [address] [place] [address] 10/17/2024 1:00 PM EST Clinical Support [facility] [address] [place] [address] 10/17/2024 2:20 PM EST Appointment [facility] [address] [place] [address] 10/20/2024 3:30 PM EST Office Visit [facility] 800 [facility], 2nd [place] [address] Germaine Alejandro MD [address] [place] [address] documented as of this encounter Visit Diagnoses Not on filedocumented in this encounter Additional Health Concerns Assessment Noted Time A fall risk assessment has been complete d for the patient 12/10/2023 9:11 AM EDT documented as of this encounter Care Teams Logistics Assistant Relationship Specialty Start Date End Date Manjit Gorman MD [address] [place], [place] [phone] PCP - General 09/23/22 Olegario Juarez MD [address] [place] [phone] Consulting Physician Radiation Oncology 10/29/2207/05 documented as of this encounter
--- OUTSIDE RECORDS SUMMARY | 2024-07-27 06:51 | XMS_ITS | Encounter Summary ---
Author Organization [facility] Address [address] [place] [address] Care Team Providers Care Director Of Laboratory Operations Name Role Phone Manjit Gorman MD Primary Care Provider [phone] Olegario Juarez MD Unavailable [phone] Encounter Details Date Type Department Care Team (Late Contact Info) Description 10/23/2023 Orders Only [facility] [address] [facility], [address] [place] [address] Germaine Alejandro MD [address] [facility] [address] [place] [address] Dry mouth (Primary Dx) Social History Tobacco Use Types [...] Encounters Date Type Department Care Team (Late Contact Info) Description 10/17/2024 8:00 AM EST Clinical Support [facility] 800 [facility], [address] [place] [address] 10/17/2024 9:00 AM EST Appointment [facility] PET Scan [address] [place] [address] 10/17/2024 10:00 AM EST Appointment [facility] PET Scan [address] [place] [address] 10/17/2024 11:00 AM EST Office Visit [facility] [address] [facility], [address] [place] [address] Juan Pablo Cee MD [address] [facility] [address] [place] [address] 10/17/2024 1:00 PM EST Clinical Support [facility] [address] [facility], [address] [place] [address] 10/17/2024 2:20 PM EST Appointment [facility]iology [address] [place] [address] 10/20/2024 3:30 PM EST Office Visit [facility] [address] [facility], [address] [place] [address] Germaine Alejandro MD [address] [facility] [address] [place] [phone] documented as of this encounter Visit Diagnoses Diagnosis Dry mouth- Primary Disturbance of salivary secretion documented in this encounter Additional Health Concerns Assessment Noted Time A fall risk assessment has been complete d for the patient 10/16/2023 9:42 AM EST documented as of this encounter Care Teams Director Of Laboratory Operations Relationship Specialty Start Date End Date Manjit Gorman MD [address] [place], [place] [phone] PCP - General 09/23/22 Olegario Juarez MD [address] [facility] [address] [place] [address] Consulting Physician Radiation Oncology 10/29/2207/05 documented as of this encounter
--- OUTSIDE RECORDS SUMMARY | 2024-07-27 06:51 | XMS_ITS | Encounter Summary ---
Author Organization [facility] Address [address] [place] [address] Care Team Providers Care Public Health Engineer Name Role Phone Manjit Gorman MD Primary Care Provider [phone] Olegario Juarez MD Unavailable [phone] Reason for Visit * Reason Comments Follow-up Encounter Details Date Type Department Care Team (Latest Contact Info) Description 06/27/2024 2:00 PM EDT - 06/27/2024 11:59 PM EDT Hospital Encounter [facility] [address] [place] [address] Eduardo Johnston MD [address] [place] [address] Primary cancer of oropharynx (CMS/HCC) (Primary Dx); Radiotherapy follow-up examination Discharge Disposition: Still a Patient Social History Tobacco Use Types Packs/Day Years [...] 14.8 oz) 06/27/2024 2:05 PM EDT Height - - Body Mass Index 22.58 02/18/2024 9:53 AM EDT documented in this encounter Medications at Time of Discharge amLODIPine-benaze pril (Lotrel) 2.5-10 MG capsule Take 1 capsule by mouth every night. BLACK ELDERBERRY PO Take 1 tablet by mouth every night. multivitamin (Theragran-M) tablet Take 1 tablet by mouth every night. tadalafil (Cialis) 5 MG tablet TAKE 1 OR 2 TABLETS BY MOUTH DAILY NEEDED FOR ED 04/15/2022 documented as of this encounter Miscellaneous Notes * Addendum Note - Bradley Schroeder MD - 06/27/2024 2:00 PM EDTEncounter addended by: Bradley Schroeder MD on: 06/27/2024 3:42 PM Actions taken: Clinical Note Signed * Progress Notes - Bradley Schroeder MD - 06/27/2024 2:00 PM EDT Images from the original note were not included. RADIATION ONCOLOGY FOLLOW-UP VISIT Erick Sierra is a 73 y.o. male who we are seeing as a follow up for: DIAGNOSIS: Cancer Staging Cancer of base of tongue (CMS/HCC) Staging form: Pharynx - HPV-Mediated Oropharynx, AJCC 8th Edition - Clinical stage from 10/29/2022: Stage I (cT2, cN1, cM0, p16+) - Signed by Germaine Alejandro MD on11/10/2022 He was treated with the course of Radiation Therapy Details of prior Radiation Treatment: 7000 cGy in 35 fractions to right oropharynx and right lymph node level II-III, and 5600 cGy in 35 fractions to right lymph node level IV and left lymph node using a VMAT plan with 6X energy. Completed 12/30/2022. ECO KARNOFSKY PERFORMANCE STATUS: 90:able to carry on normal activity; minor signs or symptoms of disease. HISTORY OF PRESENT ILLNESS: Erick Sierra is a 73 y.o. 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 PET/CT 10/21/22 demonstrated a hypermetabolic RIGHT BOT mass and hypermetabolic RIGHT level IIA and IIB nodes. Patient completed radiation treatment as described above on 12/31/2023. Patent was last seen in clinic on 10/16/23 and presents to clinic today for a 17-month f/u post radiotherapy. INTERVAL HISTORY: Mr. Sierra reports being asymptomatic since last visit. Patient reports improvement of dry month andhis ability to tolerate PO. Patient is actively going to the dentist [id number]. Ongoing altered taste with excellent oral care. Patient denies any muscle spasms at the jaw. No choking or difficulty with chewing. Patient did bring up concerns about stable cysts found in liver on CT. Additionally we received up trending hyperkalemia with an increase in TSH. PHYSICAL EXAM: Vital Signs: Visit Vitals BP 129/72 Pulse 76 Temp 36.8 ??C (98.2 ??F) (Oral) Resp 16 Wt 79.8 kg (175 lb 14.8 oz) SpO2 97% BMI 22.58 kg/m?? Smoking Status Never BSA 2.04 m?? General/Constitutional: Well developed, well nourished male, who looks his stated age of 73 y.o.. No acute distress. PE: Comments: Gum recession on 4 lower incisors, severe. . Eyes: General: Lids are normal. Cardiovascular: Rate and Rhythm: Normal rate and regular rhythm. Pulmonary: Effort: Pulmonary effort is normal. Abdominal: General: Abdomen is flat. There is no distension. Palpations: Abdomen is soft. There is no mass. Tenderness: There is no abdominal tenderness. Musculoskeletal: Cervical back: Normal range of motion. No rigidity or tenderness. Neurological: General: No focal deficit present. Mental Status: He is oriented to person, place, and time. Physical Exam Constitutional: Appearance: He is not ill-appearing or toxic-appearing. HENT: Mouth/Throat: Lips: Obion. Mouth: Mucous membranes are moist. Dentition: Gum lesions present. Tongue: No lesions. Comments: Gum lesions more so found on the inferior protion of the 4 lower front teeth, darker discoloration. Eyes: General: Lids are normal. Cardiovascular: Rate and Rhythm: Normal rate and regular rhythm. Pulmonary: Effort: Pulmonary effort is normal. Abdominal: General: Abdomen is flat. There is no distension. Palpations: Abdomen is soft. There is no mass. Tenderness: There is no abdominal tenderness. Musculoskeletal: Cervical back: Normal range of motion. No rigidity or tenderness. Neurological: General: No focal deficit present. Mental Status: He is oriented to person, place, and time. Midline scare of the neck from Mohs surgery DATA: Radiographic Studies: CT CHEST FINDINGS: Mediastinum and Pleura: No mediastinal or [...] changes of spine. Stable scoliosis of spine. IMPRESSION: No evidence of thoracic progression of malignancy. Pending PET/CT Scan Pathology: Final Diagnosis A. LYMPH NODE, NECK; EXCISIONAL BIOPSY ([id number]; 09/02/22): - METASTATIC SQUAMOUS CELL CARCINOMA, P16 DIFFUSELY POSITIVE CONSISTENT WITH HPV-ASSOCIATED SQUAMOUS CELL CARCINOMA. Final Diagnosis A. RIGHT BASE OF TONGUE, BIOPSY: - P16 POSITIVE SQUAMOUS CELL CARCINOMA. at 1026 Clinical Information neck mass Special and Immunohistochemical Stains IHC: A1-2 P16 - positive All controls show appropriate reactivity. All immunohistochemistry, in situ hybridization, and histochemical tests were developed by and are performed at the [facility], [address] [place] [address]. All tests reported here, except those addressing HER2 (breast) and PD-L1 expression as predictive markers, have not been cleared by or approved by the US Food and Drug Administration (FDA). The FDA has determined that such clearance or approval is not necessary. The laboratory is regulated under CLIA as qualified to perform high-complexity testing. The tests are used for clinical purposes. They should not be regarded as investigational or for research. This assay has not been validated on decalcified tissues. Results should be interpreted with caution given the likelihood of false negativity on decalcified specimens. Laboratory studies: Results from last 7 days Lab Units 06/22/24 0947 WBC 10*3/uL 3.88 HEMOGLOBIN g/dL 13.9 HEMATOCRIT % 41.4 PLATELETS 10*3/uL 225 NEUTROS PCT % 70 LYMPHS PCT % 10 MONOS PCT % 14 EOS PCT % 5 Results from last 7 days Lab Units 06/22/24 0947 SODIUM mmol/L 137 POTASSIUM mmol/L 5.0* CHLORIDE mmol/L 105 CO2 mmol/L 25 BUN mg/dL 19 CREATININE mg/dL 1.19 CALCIUM mg/dL 9.2 BILIRUBIN TOTAL mg/dL 0.3 ALKALINE PHOSPHATASE U/L 60 ALT U/L 28 AST U/L 30 GLUCOSE mg/dL 100* ASSESSMENT AND PLAN: Erick Sierra is a 73 y.o. 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 PET/CT 10/21/22 demonstrated a hypermetabolic RIGHT BOT mass and hypermetabolic RIGHT level IIA and IIB nodes. Patient completed radiation treatment as described above. Presents to clinic today for 17-month follow up visit. Will alternate f/u's with Dr. Alejandro scheduled 10/2024. Osteonecrosis precautions discussed in the context of his dental work (pt said his dentist is recommending bridge) Patient offered 6-month follow up with radiation oncology, patient has declined and wishes to follow up with Dr. Cee regarding oncologic care Patient was sent to lab to complete T4 and will follow up with Dr. Alejandro Follow-up plan: Erick Sierra will return as needed Future Appointments Date Time Provider Department Center 10/17/2024 1:00 PM ALEXA Ríos 10/17/2024 2:[address] [facility] 10/20/2024 3:30 PM Germaine Alejandro MD [facility] No orders of the defined types were placed in this encounter. Thank you for allowing us to participate in the care of Erick Weinberg Rigo Concepcion. MD Alexandre, PGY-2 Resident Physician, Radiation Oncology [facility] Pager: [phone] Eduardo Johnston MD [facility] Department of Radiation Medicine [address], [address] [place] [address] Ph. Office: [phone] Cosigned by Eduardo Johnston MD at 06/28/2024 2:27 PM EDT Associated attestation - Eduardo Johnston MD - 06/28/2024 2:27 PM EDT I saw and evaluated the patient with the resident/fellow. I discussed the case with the resident/fellow and agree with the findings and plan as documented. TSH inc, T4 pending. K+ inc, pt on ACEI, will d/w PCP irma. Patient wants to consolidate care, so declined appt here for 6 mos. documented in this encounter Plan of Treatment Upcoming Encounters Date Type Department Care Team (Late st Contact Info) Description 10/17/2024 8:00 AM EST Clinical Support [facility] Res[facility] [address] [address] 10/17/2024 9:00 AM EST Appointment [facility] PET Scan [address] [place] [address] 10/17/2024 10:00 AM EST Appointment [facility] PET Scan [address] [place] [address] 10/17/2024 11:00 AM EST Office Visit [facility] [address] [phone] Juan Pablo Cee MD [address] [facility] [address] [place] [phone] 10/17/2024 1:00 PM EST Clinical Support [facility] Res[facility] [address] [place] [phone] 10/17/2024 2:20 PM EST Appointment [facility] Radiology [address] [place] [address] 10/20/2024 3:30 PM EST Office Visit [facility] [address] [place] [address] Germaine Alejandro MD [address] [place] [address] documented as of this encounter Visit Diagnoses Diagnosis Primary cancer of oropharynx (CMS/HCC)- Primary Radiotherapy follow-up examination documented in this encounter Additional Health Concerns Assessment Noted Time A fall risk assessment has been complete d for the patient 06/27/2024 2:09 PM EDT A Body Mass Index follow-up plan has been documented for the patient 06/15/2024 1:59 PM EDT documented as of this encounter Care Teams Public Health Engineer Relationship Specialty Start Date End Date Manjit Gorman MD [address] [place] [address] PCP - General 09/23/22 Olegario Juarez MD [address] [place] [phone] Consulting Physician Radiation Oncology 10/29/2207/05 documented as of this encounter
--- OUTSIDE RECORDS SUMMARY | 2024-07-27 06:51 | XMS_ITS | Encounter Summary ---
Author Organization [facility] Address [address] [place] [address] Care Team Providers Care Maintenance Team Member Name Role Phone Manjit Gorman MD Primary Care Provider [phone] Olegario Juarez MD Unavailable [phone] Reason for Visit * Reason Comments Labs Peripherial stick ri ght arm Encounter Details Date Type Department Care Team (Latest Contact Info) Description 02/16/2024 11:45 AM EDT Clinical Support [facility] [address] [phone] Cancer of base of tongue (CMS/HCC); Secondary hypertension Social History Tobacco Use Types Packs/Day [...] [facility] Res[facility] [address] [facility] [place] [phone] 10/17/2024 9:00 AM EST Appointment [facility] PET Scan [address] [place] [phone] 10/17/2024 10:00 AM EST Appointment [facility] PET Scan [address] [place] [address] 10/17/2024 11:00 AM EST Office Visit [facility] Res[facility] [address] [facility] [place] [address] Juan Pablo Cee MD [address] [facility] [address] [place] [address] 10/17/2024 1:00 PM EST Clinical Support [facility]ck [facility] Res[facility] [address] [facility] [place] [address] 10/17/2024 2:20 PM EST Appointment [facility] Radiology [address] [place] [address] 10/20/2024 3:30 PM EST Office Visit [facility] Head[facility] Neck [facility] Respiratory 800 [facility], [address] [place] [phone] Germaine Alejandro MD [address] [facility] [address] [place] [phone] documented as of this encounter Procedures Procedure Name Priority Date/Time Associated Diagnosis Comments CBC WITH AUTO DIFFERENTIAL Routine 02/16/2024 11:48 AM EDT Cancer of base of tongue (CMS/HCC) Secondary hypertension TSH Routine 02/16/2024 11:48 AM EDT Cancer of base of tongue (CMS/HCC) Secondary hypertension COMPREHENSIVE METABOLIC PANEL, PLASMA Routine 02/16/2024 11:48 AM EDT Cancer of base of tongue (CMS/HCC) Secondary hypertension documented in this encounter Results * (ABNORMAL) Thyroid Stimulating Hormone, Plasma (02/16/2024 11:48 AM EDT) Thyroid Stimulating Hormone, Plasma 4.40(H) 0.40 - 4.20 uIU/mL 02/16/2024 12:36 PM EDT [facility] Blood Venous blood specimen / Unknown Venipuncture / Unknown 02/16/2024 11:48 AM EDT 02/16/2024 11:57 AM EDT Germaine Alejandro MD LAB BLOOD ORDERABLES Final R esult [facility] [address] [place] [address] * (ABNORMAL) Comprehensive Metabolic Panel, Plasma (02/16/2024 11:48 AM EDT) [facility] Glucose, Plasma 101(H) 74 - 99 mg/dL 02/16/2024 12:36 PM EDT [facility] BUN, Plasma 20 8 - 23 mg/dL 02/16/2024 12:36 PM EDT [facility] Creatinine, Plasma 1.18 0.80 - 1.30 mg/dL 02/16/2024 12:36 PM EDT [facility] BUN/Creatinine Ratio 17 02/16/2024 12:36 PM EDT [facility] Sodium, Plasma 140 136 - 145 mmol/L 02/16/2024 12:36 PM EDT [facility] Potassium, Plasma 4.6 3.7 - 4.8 mmol/L 02/16/2024 12:36 PM EDT [facility] Chloride, Plasma 103 97 - 107 mmol/L 02/16/2024 12:36 PM EDT [facility] CO2, Plasma 26 22 - 29 mmol/L 02/16/2024 12:36 PM EDT [facility] Anion Gap 11 6 - 16 mmol/L 02/16/2024 12:36 PM EDT [facility] Total Calcium, Plasma 9.2 8.9 - 10.2 mg/dL 02/16/2024 12:36 PM EDT [facility] Total Protein 6.3 6.3 - 7.9 g/dL 02/16/2024 12:36 PM EDT [facility] Albumin, Plasma 4.0 3.5 - 5.2 g/dL 02/16/2024 12:36 PM EDT [facility] AST, Plasma 23 10 - 50 U/L 02/16/2024 12:36 PM EDT [facility] ALT, Plasma 21 10 - 50 U/L 02/16/2024 12:36 PM EDT [facility] Alkaline Phosphatase, Plasma 62 40 - 115 U/L 02/16/2024 12:36 PM EDT [facility] Total Bilirubin, Plasma 0.3 0.2 - 1.1 mg/dL 02/16/2024 12:36 PM EDT [facility] eGFRcr 65.2 mL/min/1.7 3m*2 02/16/2024 12:36 PM EDT [facility] Comment:Reported eGFRcr in m L/min/1.73m2 is based the CKD-EPI 2020 equation that does not use a race coefficient. Blood Venous blood specimen / Unknown Venipuncture / Unknown 02/16/2024 11:48 AM EDT 02/16/2024 11:57 AM EDT Germaine Alejandro MD LAB BLOOD ORDERABLES Final R esult Performing Organization Address City/State/[facility] Co de Phone Number [facility] [address] [place] [address] * (ABNORMAL) CBC and Differential (02/16/2024 11:48 AM EDT) WBC Count 4.55 3.70 - 10.30 10*3/uL LAB HEMATOLOGY METHOD 02/16/2024 12:08 PM EDT [facility] RBC Count 4.44(L) 4.60 - 6.10 10*6/uL LAB HEMATOLOGY METHOD 02/16/2024 12:08 PM EDT [facility] HGB 13.5(L) 13.7 - 17.5 g/dL LAB HEMATOLOGY METHOD 02/16/2024 12:08 PM EDT [facility] HCT 41.0 40.0 - 51.0 % LAB HEMATOLOGY METHOD 02/16/2024 12:08 PM EDT [facility] Platelet Count 241 155 - 369 10*3/uL LAB HEMATOLOGY METHOD 02/16/2024 12:08 PM EDT [facility] MCV 92 79 - 98 fL LAB HEMATOLOGY METHOD 02/16/2024 12:08 PM EDT [facility] MCH 30.4 26.0 - 32.0 pg LAB HEMATOLOGY METHOD 02/16/2024 12:08 PM EDT [facility] MCHC 32.9 30.7 - 35.5 g/dL LAB HEMATOLOGY METHOD 02/16/2024 12:08 PM EDT [facility] RDW 13.2 11.5 - 14.5 % LAB HEMATOLOGY METHOD 02/16/2024 12:08 PM EDT [facility] MPV 8.7(L) 8.8 - 12.5 fL LAB HEMATOLOGY METHOD 02/16/2024 12:08 PM EDT [facility] nRBC 0.0 <=0.0 per 100 WBCs LAB HEMATOLOGY METHOD 02/16/2024 12:08 PM EDT [facility] Differential Type Automated LAB HEMATOLOGY METHOD 02/16/2024 12:08 PM EDT [facility] Neutrophils % 73.0 % LAB HEMATOLOGY METHOD 02/16/2024 12:08 PM EDT [facility] Lymphocytes % 12.0 % LAB HEMATOLOGY METHOD 02/16/2024 12:08 PM EDT [facility] Monocytes % 12.0 % LAB HEMATOLOGY METHOD 02/16/2024 12:08 PM EDT [facility] Eosinophils % 2.0 % LAB HEMATOLOGY METHOD 02/16/2024 12:08 PM EDT [facility] Basophils % 1.0 % LAB HEMATOLOGY METHOD 02/16/2024 12:08 PM EDT [facility] Immature Granulocytes % 0.0 % LAB HEMATOLOGY METHOD 02/16/2024 12:08 PM EDT [facility] Neutrophils Absolute 3.32 1.60 - 6.10 10*3/uL LAB HEMATOLOGY METHOD 02/16/2024 12:08 PM EDT [facility] Lymphocytes Absolute 0.54(L) 1.20 - 3.90 10*3/uL LAB HEMATOLOGY METHOD 02/16/2024 12:08 PM EDT [facility] Monocytes Absolute 0.53 0.30 - 0.90 10*3/uL LAB HEMATOLOGY METHOD 02/16/2024 12:08 PM EDT [facility] Eosinophils Absolute 0.10 0.00 - 0.50 10*3/uL LAB HEMATOLOGY METHOD 02/16/2024 12:08 PM EDT [facility] Basophils Absolute 0.04 0.00 - 0.10 10*3/uL LAB HEMATOLOGY METHOD 02/16/2024 12:08 PM EDT [facility] Immature Granulocytes Absolute 0.02 0.00 - 0.06 10*3/uL LAB HEMATOLOGY METHOD 02/16/2024 12:08 PM EDT [facility] Blood Venous blood specimen / Unknown Venipuncture / Unknown 02/16/2024 11:48 AM EDT 02/16/2024 11:57 AM EDT Narrative [facility] - 02/16/2024 12:08 PM EDT Therapeutic decision making should be based on absolute values, rather than percentages. Germaine Alejandro MD LAB BLOOD ORDERABLES Final R esult [facility] [address] [place] [address] documented in this encounter Visit Diagnoses Diagnosis 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 Secondary hypertension Other secondary hypertension, unspecified documented in this encounter Additional Health Concerns Assessment Noted Time A fall risk assessment has been complete d for the patient 12/10/2023 9:11 AM EDT documented as of this encounter Care Teams Maintenance Team Member Relationship Specialty Start Date End Date Manjit Gorman MD [address] [place] [address] PCP - General 09/23/22 Olegario Juarez MD [address] [phone] Consulting Physician Radiation Oncology 10/29/2207/05 documented as of this encounter
--- OUTSIDE RECORDS SUMMARY | 2024-07-27 06:51 | XMS_ITS | Encounter Summary ---
Author Organization [facility] Address [address] [id number] Care Team Providers Care Medical Terminologist Name Role Phone Manjit Gorman MD Primary Care Provider Olegario Juarez MD Unavailable [phone] Reason for Visit * Reason Comments Labs Only Peripheral stick rig ht arm Encounter Details Date Type Department Care Team (Latest Contact Info) Description 06/22/2024 9:30 AM EDT Clinical Support [facility] [address] [phone] Cancer of base of tongue (CMS/HCC); Multiple lung nodules on CT Social History Tobacco Use Types Packs/Day Years [...] [facility] 800 [facility], [address] [place] [phone] 10/17/2024 9:00 AM EST Appointment [facility] PET Scan 800 [place] [phone] 10/17/2024 10:00 AM EST Appointment [facility] PET Scan 800 [place] [address] 10/17/2024 11:00 AM EST Office Visit [facility] 800 [facility], [address] [place] [phone] Juan Pablo Cee MD [address] [facility] [address] [place] [address] 10/17/2024 1:00 PM EST Clinical Support [facility] 800 [facility], [address] [place] [phone] 10/17/2024 2:20 PM EST Appointment [facility] Radiology [address] [place] [phone] 10/20/2024 3:30 PM EST Office Visit [facility] 800 [facility], [address] [place] [address] Germaine Alejandro MD 800 [facility] [address] [place] [phone] documented as of this encounter Procedures Procedure Name Priority Date/Time Associated Diagnosis Comments CBC WITH AUTO DIFFERENTIAL Routine 06/22/2024 9:47 AM EDT Cancer of base of tongue (CMS/HCC) Multiple lung nodules on CT TSH Routine 06/22/2024 9:47 AM EDT Cancer of base of tongue (CMS/HCC) Multiple lung nodules on CT COMPREHENSIVE METABOLIC PANEL, PLASMA Routine 06/22/2024 9:47 AM EDT Cancer of base of tongue (CMS/HCC) Multiple lung nodules on CT documented in this encounter Results * (ABNORMAL) Thyroid Stimulating Hormone, Plasma (06/22/2024 9:47 AM EDT) Thyroid Stimulating Hormone, Plasma 4.65(H) 0.40 - 4.20 uIU/mL 06/22/2024 10:53 AM EDT [facility] Blood Venous blood specimen / Unknown Venipuncture / Unknown 06/22/2024 9:47 AM EDT 06/22/2024 9:58 AM EDT us Germaine Alejandro MD LAB BLOOD ORDERABLES Final R esult [facility] [address] [place] [address] * (ABNORMAL) Comprehensive Metabolic Panel, Plasma (06/22/2024 9:47 AM EDT) Glucose, Plasma 100(H) 74 - 99 mg/dL 06/22/2024 10:53 AM EDT [facility] BUN, Plasma 19 8 - 23 mg/dL 06/22/2024 10:53 AM EDT [facility] Creatinine, Plasma 1.19 0.70 - 1.20 mg/dL 06/22/2024 10:53 AM EDT [facility] BUN/Creatinine Ratio 16 06/22/2024 10:53 AM EDT [facility] Sodium, Plasma 137 136 - 145 mmol/L 06/22/2024 10:53 AM EDT [facility] Potassium, Plasma 5.0(H) 3.6 - 4.9 mmol/L 06/22/2024 10:53 AM EDT [facility] Chloride, Plasma 105 97 - 107 mmol/L 06/22/2024 10:53 AM EDT [facility] CO2, Plasma 25 22 - 29 mmol/L 06/22/2024 10:53 AM EDT [facility] Anion Gap 7 6 - 16 mmol/L 06/22/2024 10:53 AM EDT [facility] Total Calcium, Plasma 9.2 8.9 - 10.2 mg/dL 06/22/2024 10:53 AM EDT [facility] Total Protein 6.3 6.3 - 7.9 g/dL 06/22/2024 10:53 AM EDT [facility] Albumin, Plasma 4.0 3.5 - 5.2 g/dL 06/22/2024 10:53 AM EDT [facility] AST, Plasma 30 10 - 50 U/L 06/22/2024 10:53 AM EDT [facility] ALT, Plasma 28 10 - 50 U/L 06/22/2024 10:53 AM EDT [facility] Alkaline Phosphatase, Plasma 60 40 - 115 U/L 06/22/2024 10:53 AM EDT [facility] Total Bilirubin, Plasma 0.3 0.2 - 1.1 mg/dL 06/22/2024 10:53 AM EDT [facility] eGFRcr 64.5 mL/min/1.7 3m*2 06/22/2024 10:53 AM EDT [facility] Comment:Reported eGFRcr in m L/min/1.73m2 is based the CKD-EPI 2020 equation that does not use a race coefficient. Blood Venous blood specimen / Unknown Venipuncture / Unknown 06/22/2024 9:47 AM EDT 06/22/2024 9:58 AM EDT us Germaine Alejandro MD LAB BLOOD ORDERABLES Final R esult [facility] [address] [place] [address] * (ABNORMAL) CBC and Differential (06/22/2024 9:47 AM EDT) WBC Count 3.88 3.70 - 10.30 10*3/uL LAB HEMATOLOGY METHOD 06/22/2024 10:06 AM EDT [facility] RBC Count 4.52(L) 4.60 - 6.10 10*6/uL LAB HEMATOLOGY METHOD 06/22/2024 10:06 AM EDT [facility] HGB 13.9 13.7 - 17.5 g/dL LAB HEMATOLOGY METHOD 06/22/2024 10:06 AM EDT [facility] HCT 41.4 40.0 - 51.0 % LAB HEMATOLOGY METHOD 06/22/2024 10:06 AM EDT [facility] Platelet Count 225 155 - 369 10*3/uL LAB HEMATOLOGY METHOD 06/22/2024 10:06 AM EDT [facility] MCV 92 79 - 98 fL LAB HEMATOLOGY METHOD 06/22/2024 10:06 AM EDT [facility] MCH 30.8 26.0 - 32.0 pg LAB HEMATOLOGY METHOD 06/22/2024 10:06 AM EDT [facility] MCHC 33.6 30.7 - 35.5 g/dL LAB HEMATOLOGY METHOD 06/22/2024 10:06 AM EDT [facility] RDW 13.0 11.5 - 14.5 % LAB HEMATOLOGY METHOD 06/22/2024 10:06 AM EDT [facility] MPV 9.0 8.8 - 12.5 fL LAB HEMATOLOGY METHOD 06/22/2024 10:06 AM EDT [facility] nRBC 0.0 <=0.0 per 100 WBCs LAB HEMATOLOGY METHOD 06/22/2024 10:06 AM EDT [facility] Differential Type Automated LAB HEMATOLOGY METHOD 06/22/2024 10:06 AM EDT [facility] Neutrophils % 70 % LAB HEMATOLOGY METHOD 06/22/2024 10:06 AM EDT [facility] Lymphocytes % 10 % LAB HEMATOLOGY METHOD 06/22/2024 10:06 AM EDT [facility] Monocytes % 14 % LAB HEMATOLOGY METHOD 06/22/2024 10:06 AM EDT [facility] Eosinophils % 5 % LAB HEMATOLOGY METHOD 06/22/2024 10:06 AM EDT [facility] Basophils % 1 % LAB HEMATOLOGY METHOD 06/22/2024 10:06 AM EDT [facility] Immature Granulocytes % 0 % LAB HEMATOLOGY METHOD 06/22/2024 10:06 AM EDT [facility] Neutrophils Absolute 2.71 1.60 - 6.10 10*3/uL LAB HEMATOLOGY METHOD 06/22/2024 10:06 AM EDT [facility] Lymphocytes Absolute 0.40(L) 1.20 - 3.90 10*3/uL LAB HEMATOLOGY METHOD 06/22/2024 10:06 AM EDT [facility] Monocytes Absolute 0.54 0.30 - 0.90 10*3/uL LAB HEMATOLOGY METHOD 06/22/2024 10:06 AM EDT [facility] Eosinophils Absolute 0.18 0.00 - 0.50 10*3/uL LAB HEMATOLOGY METHOD 06/22/2024 10:06 AM EDT [facility] Basophils Absolute 0.04 0.00 - 0.10 10*3/uL LAB HEMATOLOGY METHOD 06/22/2024 10:06 AM EDT [facility] Immature Granulocytes Absolute 0.01 0.00 - 0.06 10*3/uL LAB HEMATOLOGY METHOD 06/22/2024 10:06 AM EDT [facility] Blood Venous blood specimen / Unknown Venipuncture / Unknown 06/22/2024 9:47 AM EDT 06/22/2024 9:58 AM EDT Narrative [facility] - 06/22/2024 10:06 AM EDT Therapeutic decision making should be based on absolute values, rather than percentages. us Germaine Alejandro MD LAB BLOOD ORDERABLES Final R esult [facility] [address] [place] [address] documented in this encounter Visit Diagnoses Diagnosis 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 Multiple lung nodules on CT documented in this encounter Additional Health Concerns Assessment Noted Time A fall risk assessment has been complete d for the patient 06/10/2024 11:31 AM EDT A Body Mass Index follow-up plan has been documented for the patient 06/15/2024 1:59 PM EDT documented as of this encounter Care Teams Medical Terminologist Relationship Specialty Start Date End Date Manjit Gorman MD [address] [place] [address] PCP - General 09/23/22 Olegario Juarez MD 800 [facility] [address] [place] [address] Consulting Physician Radiation Oncology 10/29/2207/05 documented as of this encounter
--- OUTSIDE RECORDS SUMMARY | 2024-07-27 06:51 | XMS_ITS | Encounter Summary ---
Author Organization [facility] Address [address] [id number] Care Team Providers Care Wrist Hemmer Name Role Phone Manjit Gorman MD Primary Care Provider [phone] Olegario Juarez MD Unavailable [phone] Reason for Referral * Imaging (Routine) - Pending Review Specialty Diagnoses / Procedures Referred By Contac t Referred To Contact Radiology Diagnoses Cancer of base of tongue (CMS/HCC) Procedures PET/CT FDG Skull Base To Mid Thigh Juan Pablo Cee MD [address] [address] Phone: tel: fax: Referral ID Status Reason Start Date Expiration Date V isits Requested Visits Authorized [id number] Pending Review 06/10/2024 12/10/2025 2 2 Reason for Visit * Reason Comments Follow-up Encounter Details Date Type Department Care Team ([facility] st Contact Info) Description 06/10/2024 11:30 AM EDT Office Visit [facility] [address] [place] [address] Juan Pablo Cee MD [address] [address] Cancer of base of tongue (CMS/HCC) Social History Tobacco Use Types Packs/Day Years [...] Sign Reading Time Taken Comments Blood Pressure 135/75 06/10/2024 11:29 AM EDT Pulse 67 06/10/2024 11:29 AM EDT Temperature 36.5 ??C (97.7 ??F) 06/10/2024 11:29 AM E DT Respiratory Rate 18 06/10/2024 11:29 AM EDT Oxygen Saturation 99% 06/10/2024 11:29 AM EDT Inhaled Oxygen Concentration - - Weight 79.1 kg (174 lb 6.1 oz) 06/10/2024 11:29 AM EDT Height - - Body Mass Index 22.38 02/18/2024 9:53 AM EDT documented in this encounter Miscellaneous Notes * Progress Notes - Juan Pablo Cee MD - 06/10/2024 11:30 AM EDT Images from the original note were not included. Mr. Erick Sierra is a very pleasant 73 y.o. patient who is returning to the clinic today for his follow-up. He was last seen in my clinic on 12/10/2023 and recommended a follow-up in clinic with a PET-CT scan. 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 He was initially sent to my clinic in consultation for evaluation and management of his squamous cell carcinoma of the right neck. He reported in March 2022 he noticed pain with swallowing on the right side of his throat. He shortly after developed some swelling in the right side of his neck. He was treated initially with antibiotics as well as was evaluated by his dentist. He was found to have right cervical lymphadenopathy. He had a CT neck on 08/12/2022 that demonstrated right-sided cervical lymphadenopathy and asymmetry inthe right base of tongue/oropharynx. An excisional lymph node biopsy was performed on 09/02/2022 that demonstrated P 16 positive squamous cell carcinoma. He has never smoked. He does have a history of prostate cancer was treated with [employer] last year. He was then recommended consult with me for evaluation and management. I took him to the operating room on 10/09/2022 for direct laryngoscopy andbiopsies and he was found to have a P 16 positive squamous cell carcinoma of the right base of tongue. He did well with biopsies and denied any complications. He was evaluated by Medical and Radiation Oncology at [facility]. He started his radiation treatment on11/11/2022 and chemotherapy on 11/14/2022. He completed his radiation on 12/30/2022. He underwent restaging CT scans of neck and chest on 02/19/2023 and they did not reveal any evidence of disease. The lymph nodes in the neck were substantially shrunk. He had a PET-CT scan performed on 03/31/2023 and he was not found to have any evidence of hypermetabolism in the head and neck region or his chest. Restaging CT scan of the neck from 07/10/2023 did not reveal any evidence of disease. Restaging CT scans of the neck and chest from 10/13/2023 revealed no evidence of disease in the head and neck region. He was found to have clustered nodules in the right lower lung. He had CT scan of the neck on 02/16/2024nd this did not reveal any evidence of disease. He underwent Mohs surgery for skin cancer of the back of his neck. He has been doing very well since last visit and denies any new symptoms. The patient reported otalgia, denies otorrhea, hearing loss, vertigo or tinnitus. He denied having sinonasal symptoms, postnasal drip, epistaxis, nasal congestion/obstruction or anosmia/hyposmia. He also denied, odynophagia, dysphonia, dyspepsia, dyspnea or reflux disease. The patient's complete review of system from 06/10/24 was performed today. All systems were negative except for those mentioned in the HPI, prostate cancer, hypertension, allergic rhinitis, history of skin cancer. Radiographs: - CT scan of the neck: . 08/12/2022: asymmetry in the right oropharynx base of tongue with right-sided cervical lymphadenopathy . 02/19/2023: Posttreatment changes with decrease of the right level 2 lymph nodes now measuring 0.8cm and 1.1 cm . 07/10/2023: No evidence of disease . 10/13/2023: No evidence of disease in the head and neck region . 02/16/2024: No evidence of disease in the head and neck region - CT scan of the chest: . 10/21/2022: No evidence of thoracic malignancy . 02/19/2023: No evidence of thoracic malignancy . 10/13/2023: Stable clustered nodules in the right lower lung partially calcified left lower lobe nodule - PET CT scan: . 09/05/2022: Right level 2 lymph node with an SUV of 3.2 and the lymph node measured 1.7 cm. No evidence of primary head and neck source of malignancy. . 10/21/2022: Hypermetabolic right base of tongue mass with hypermetabolism in right level 2A lymph node in right level 2b. Cluster of hypermetabolism in the mediastinum favoring infectious disease. Hypermetabolism of the left postauricular region. . 03/31/2023: Near-complete response to therapy with markedly decreasing in FDG activity and size ofthe right base tongue mass with small residual FDG uptake and thickening. Resolution of FDG avid right cervical lymphadenopathy. Slight decrease in FDG avidity of right lung cluster peribronchial nodularity is consistent with post inflammation/infection. I independently reviewed the images of the CT scan of the neck from 08/12/2022. I discussed my findings with the patient. 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 Liudmila Salinas) - 10/09/2022: P 16 positive squamous cell carcinoma of the right base of tongue Allergies: No Known Allergies Past medical history: As in history of present illness, prostate cancer, hypertension, allergic rhinitis, history of skin cancer. Past surgical history: Prostate biopsy, tonsillectomy, vasectomy, direct laryngoscopy with biopsy 10/09/2022 Family history: reviewed and consistent with hypertension in his mother, hypertension in his father Social history: The patient has never smoked, drinks 1 beer a day or use any illicit drugs PHYSICAL EXAMINATION: Visit Vitals BP 135/75 (BP Location: Left arm, Patient Position: Sitting, BP Cuff Size: Adult) Pulse 67 Temp 36.5 ??C (97.7 ??F) (Oral) Wt 79.1 kg (174 lb 6.1 oz) SpO2 99% BMI 22.38 kg/m?? General: He is a very healthy-appearing 73 y.o. patient, alert and oriented x3, in no acute distress, well nourished, well developed. Psychiatric evaluation: Normal mood and affect, very pleasant and cooperative. Otoscopy: did not reveal any cerumen impaction. Tympanic membranes are normal without any middle ear effusions. He is wearing bilateral hearing aids. Nasal cavity examination: Septum is midline. I did not see any pus or polyps. Oral cavity examination: The buccal mucosa, lips, gingiva, retromolar trigone, alveolar ridge, floor of mouth, tongue and palate unremarkable. Oropharynx: Tonsils are surgically absent Neck: soft and supple, no palpable lymphadenopathy. Eyes: Extraocular movements are intact bilaterally. PERRLA. Neurological examination: Cranial nerves II-XII are grossly intact. Skin of the neck and face: did not reveal any evidence of significant rashes or suspicious appearing nevi or other concerning lesions. Endocrine examination: I do not feel any thyroid nodules. No thyromegaly. Respiratory: chest is symmetrical, breathing comfortably without effort. 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 I answered his questions to the best of my abilities. I reviewed the patient's records since last visit and I summarized my findings in this note. He wasevaluated by Dr. Alejandro on 02/18/2024 and recommended return to clinic in 8 months with labs/scans. He was evaluated by his primary care physician at [facility] on 03/05/2024. He has an appointment with radiation oncology on 06/27/2024. He is doing very well clinically and does not have any evidence of disease. I independently and very thoroughly reviewed the patient's CT scan of the neck from 02/15/2023 and Elmer not see any evidence of disease in the head and neck region. I discussed the finding with the patient and I included a photograph in this note. Regarding his head and neck cancer follow-up, he has scans scheduled him pen 2023 and follow up with radiation therapy on 06/27/2024. He has a follow up appointment with Dr. Alejandro on 10/20/2024 with restaging scans scheduled on 10/17/2024. He will continue to follow up with a program production specialist because of the history of skin cancer. Regarding the patient's head and neck cancer follow-up, he has not had a PET-CT scan in a very longtime and I recommended scheduling a PET-CT scan in October [address] scans of theneck and chest. The patient was asking about the long-term follow up in his condition and I will continue to followup with him until year 5. He most likely will have the last appointment with the radiation therapy next year as he will be 2 years out and the follow up with Medical Oncology is based on their discretion. The patient as trying to reduce the redundant follow-up regarding his cancer. I will see him in my clinic same-day with a PET-CT scan, sooner if he has any problems or concerns. *Digital speech recognition software was used to dictate this note and, despite all efforts to proofread, some dictation errors may occur. If you have any questions, please do not hesitate to contactme. Juan Pablo Cee MD MS FACS Scheduling Clerk Head & Neck Oncology Thyroid/Parathyroid Surgery Rhinology & Skull Base Surgery documented in this encounter Plan of Treatment Upcoming Encounters Date Type Department Care Team ([facility] st Contact Info) Description 10/17/2024 8:00 AM EST Clinical Support [facility] Res[facility] [address] [facility], [address]nd [place] [address] 10/17/2024 9:00 AM EST Appointment [facility] PET Scan [address] [place] [phone] 10/17/2024 10:00 AM EST Appointment [facility] PET Scan [address] [place] [phone] 10/17/2024 11:00 AM EST Office Visit [facility] [address] [phone] Juan Pablo Cee MD [address] [facility] [address] [place] [phone] 10/17/2024 1:00 PM EST Clinical Support [facility] [address] [phone] 10/17/2024 2:20 PM EST Appointment [facility] Radiology [address] [place] [address] 10/20/2024 3:30 PM EST Office Visit [facility] Res[facility] [address] [phone] Germaine Alejandro MD 800 [facility] [address] [place] [address] Scheduled Orders Name Type Priority Associated Diagnoses Orde r Schedule PET/CT FDG Skull Base To Mid Thigh Imaging Routine Cancer of base of tongue (CMS/HCC) Expected: 10/11/2024 (Approximate), Expires: 12/09/2025 documented as of this encounter Visit Diagnoses Diagnosis 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 documented in this encounter Additional Health Concerns Assessment Noted Time A fall risk assessment has been complete d for the patient 06/10/2024 11:31 AM EDT A Body Mass Index follow-up plan has been documented for the patient 06/15/2024 1:59 PM EDT documented as of this encounter Care Teams Wrist Hemmer Relationship Specialty Start Date End Date Manjit Gorman MD [address] [place] [address] PCP - General 09/23/22 Olegario Juarez MD [address] [address] Consulting Physician Radiation Oncology 10/29/2207/05 documented as of this encounter
--- OUTSIDE RECORDS SUMMARY | 2024-07-27 06:51 | XMS_ITS | Encounter Summary ---
Author Organization [facility] Address [address] [place] [address] Care Team Providers Care Special Client Bus Driver Name Role Phone Manjit Gorman MD Primary Care Provider Olegario Juarez MD Unavailable [phone] Reason for Referral * Imaging (Routine) - Closed Specialty Diagnoses / Procedures Referred By Terri del rosario Referred To Contact Radiology Diagnoses Oropharynx neoplasm Procedures CT Soft Tissue Neck w IV Contrast CT Soft Tissue Neck w and wo IV Contrast Eduardo Johnston MD [address] [address] Phone: tel: fax: Referral ID Status Reason Start Date Expiration Date Visits Re quested Visits Authorized [id number] Closed 04/13/2024 10/13/2025 1 1 * Imaging (Routine) - Closed Specialty Diagnoses / Procedures Referred By Terri del rosario Referred To Contact Radiology Diagnoses Oropharynx neoplasm Procedures CT Chest w IV Contrast Eduardo Johnston MD [address] [address] Phone: tel: fax: Referral ID Status Reason Start Date Expiration Date Visits Re quested Visits Authorized [id number] Closed 04/13/2024 10/13/2025 1 1 Reason for Visit * Imaging (Routine) - Closed Specialty Diagnoses / Procedures Referred By Terri t Referred To Contact Radiology Diagnoses Oropharynx neoplasm Procedures CT Chest w IV Contrast Eduardo Johnston MD 800 [facility] [address] [place] [address] Phone: tel: fax: Referral ID Status Reason Start Date Expiration Date Visits Re quested Visits Authorized [id number] Closed 04/13/2024 10/13/2025 1 1 Encounter Details Date Type Department Care Team (Latest Contact Info) Description 06/22/2024 10:15 AM EDT - 06/22/2024 11:59 PM EDT Hospital Encounter [facility] [address] [place] [address] Oropharynx neoplasm Discharge Disposition: Home or Self Care Social [...] ED 04/15/2022 documented as of this encounter Plan of Treatment Upcoming Encounters Date Type Department Care Team (Late st Contact Info) Description 10/17/2024 8:00 AM EST Clinical Support [facility] 800 [facility], [address]nd [place] [address] 10/17/2024 9:00 AM EST Appointment [facility] PET Scan [address] [place] [phone] 10/17/2024 10:00 AM EST Appointment [facility] PET Scan [address] [place] [address] 10/17/2024 11:00 AM EST Office Visit [facility] [address] [facility], [address]nd [place] [address] Juan Pablo Cee MD [address] [facility] [address] [place] [phone] 10/17/2024 1:00 PM EST Clinical Support [facility] 800 [facility] [address] [place] [address] 10/17/2024 2:20 PM EST Appointment [facility] [address] [place] [address] 10/20/2024 3:30 PM EST Office Visit [facility] [address] [facility], [address] [place] [phone] Germaine Alejandro MD [address] [facility] [address] [place] [address] Scheduled Orders Name Type Priority Associated Diagnoses Order Schedule POCT creatinine venous clear green (no-gel) Point of Care Testing - Docked Devices Routine Once (Lab) for 1 Occurrences starting 06/22/2024 until 06/22/2024 documented as of this encounter Procedures Procedure Name Priority Date/Time Associated Diagnosis Comments CT CHEST W IV CONTRAST Routine 06/22/2024 11:36 AM EDT Oropharynx neoplasm CT SOFT TISSUE NECK W IV CONTRAST Routine 06/22/2024 11:36 AM EDT Oropharynx neoplasm POCT CREATININE ISTAT UNSOLICITED RESULTS Routine 06/22/2024 10:55 AM EDT documented in this encounter Results * CT Soft Tissue Neck w IV [...] 06/27/2024 8:35 AM Final report signed by Tervor Foy MD on 06/27/2024 1:47 PM Narrative [...] CT PROCEDURES Final Resu lt * CT Chest w IV Contrast (06/22/2024 [...] (06/22/2024 10:55 AM EDT) Pathologist [facility] Creatinine, Point of Care 1.1 0.7 - 1.2 mg/dL 06/22/2024 10:58 AM EDT [facility] POCT eGFR 71 mL/min/1. 73m*2 06/22/2024 10:58 AM EDT [facility] Auto Painter ID Nidia Kay 06/22/2024 10:58 AM EDT [facility] Device ID [id number] 06/22/2024 10:58 AM EDT [facility] Comment 06/22/2024 10:58 AM EDT [facility] Comment:Testing performed on i-STAT at the point of care. Reported eGFRcr in mL/min/1.73m2 is based the CKD-EPI 2020 equation that does not use a race coefficient. 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 documented in this encounter Administered Medications Inactive Administered Medications - up to 3 most recent administrations Medication Order MAR Action Action Date Dose Rate Site iohexol (OMNIPaque) 300 MG/ML injection 100 mL 100 mL, Intravenous, Once in imaging, 1 dose, Starting on Thu06/22/24 at 1054, Until Thu06/22/24 at 1129, Routine, Imaging Protocol Orders Given 06/22/2024 11:29 AM EDT 100 mL documented in this encounter Additional Health Concerns Assessment Noted Time A fall risk assessment has been complete d for the patient 06/10/2024 11:31 AM EDT A Body Mass Index follow-up plan has been documented for the patient 06/15/2024 1:59 PM EDT documented as of this encounter Care Teams Special Client Bus Driver Relationship Specialty Start Date End Date Manjit Gorman MD [address] [place] [address] PCP - General 09/23/22 Olegario Juarez MD [address] [address] Consulting Physician Radiation Oncology 10/29/2207/05 documented as of this encounter
--- OUTSIDE RECORDS SUMMARY | 2024-07-27 06:51 | XMS_ITS | Encounter Summary ---
Author Organization [facility] Address [address] [place], [place] [address] Care Team Providers Care Park Interpreter Name Role Phone Manjit Gorman MD Primary Care Provider [phone] Olegario Juarez MD Unavailable [phone] Encounter Details Date Type Department Care Team (Latest Contact Info) Description 12/09/2023 Travel Social History Tobacco Use Types Packs/Day [...] [facility] [address] [address] 10/17/2024 9:00 AM EST Appointment [facility] PET Scan 800 [place] [address] 10/17/2024 10:00 AM EST Appointment [facility] PET Scan 800 [place] [address] 10/17/2024 11:00 AM EST Office Visit [facility] [address] [phone] Juan Pablo Cee MD [address] [facility] [address] [place] [phone] 10/17/2024 1:00 PM EST Clinical Support [facility] [address] [place] [address] 10/17/2024 2:20 PM EST Appointment [facility] [address] [place] [address] 10/20/2024 3:30 PM EST Office Visit [facility] 800 [facility], [address]nd [place] [address] Germaine Alejandro MD [address] [facility] [place] [address] documented as of this encounter Visit Diagnoses Not on filedocumented in this encounter Additional Health Concerns Assessment Noted Time A fall risk assessment has been complete d for the patient 10/16/2023 9:42 AM EST documented as of this encounter Care Teams Park Interpreter Relationship Specialty Start Date End Date Manjit Gorman MD [address] [place], [place] [phone] PCP - General 09/23/22 Olegario Juarez MD [address] [place] [phone] Consulting Physician Radiation Oncology 10/29/2207/05 documented as of this encounter
--- OUTSIDE RECORDS SUMMARY | 2024-07-27 06:51 | XMS_ITS | Encounter Summary ---
Author Organization [facility] Address [address] [place], [place] [address] Care Team Providers Care Hide Mill Worker Name Role Phone Manjit Gorman MD Primary Care Provider [phone] Olegario Juarez MD Unavailable [phone] Encounter Details Date Type Department Care Team (Latest Contact Info) Description 02/16/2024 Travel Social History Tobacco Use Types Packs/Day [...] [facility] [address] [address] 10/17/2024 9:00 AM EST Appointment [facility] PET Scan 800 [place] [address] 10/17/2024 10:00 AM EST Appointment [facility] PET Scan 800 [place] [address] 10/17/2024 11:00 AM EST Office Visit [facility] [address] [phone] Juan Pablo Cee MD [address] [facility] [address] [place] [address] 10/17/2024 1:00 PM EST Clinical Support [facility] [address] [place] [address] 10/17/2024 2:20 PM EST Appointment [facility] [address] [place] [address] 10/20/2024 3:30 PM EST Office Visit [facility] Res[facility] 800 [facility], 2nd [place] [address] Germaine Alejandro MD [address] [place] [address] documented as of this encounter Visit Diagnoses Not on filedocumented in this encounter Additional Health Concerns Assessment Noted Time A fall risk assessment has been complete d for the patient 12/10/2023 9:11 AM EDT documented as of this encounter Care Teams Hide Mill Worker Relationship Specialty Start Date End Date Manjit Gorman MD [address] [place], [place] [phone] PCP - General 09/23/22 Olegario Juarez MD [address] [place] [phone] Consulting Physician Radiation Oncology 10/29/2207/05 documented as of this encounter
--- OUTSIDE RECORDS SUMMARY | 2024-07-27 06:51 | XMS_ITS | Encounter Summary ---
Author Organization [facility] Address [address] [place], [place] [address] Care Team Providers Care Lurer Name Role Phone Manjit Gorman MD Primary Care Provider [phone] Olegario Juarez MD Unavailable [phone] Encounter Details Date Type Department Care Team (Latest Contact Info) Description 02/18/2024 Travel Social History Tobacco Use Types Packs/Day [...] [facility] [address] [address] 10/17/2024 9:00 AM EST Appointment [facility] PET Scan 800 [place] [address] 10/17/2024 10:00 AM EST Appointment [facility] PET Scan [address] [place] [address] 10/17/2024 11:00 AM EST Office Visit [facility] [address] [phone] Juan Pablo Cee MD [address] [facility] [address] [place] [address] 10/17/2024 1:00 PM EST Clinical Support [facility] [address] [place] [address] 10/17/2024 2:20 PM EST Appointment [facility] [address] [place] [address] 10/20/2024 3:30 PM EST Office Visit [facility] [address] [facility], [address]nd [place] [address] Germaine Alejandro MD [address] [place] [address] documented as of this encounter Visit Diagnoses Not on filedocumented in this encounter Additional Health Concerns Assessment Noted Time A fall risk assessment has been complete d for the patient 02/18/2024 9:53 AM EDT documented as of this encounter Care Teams Lurer Relationship Specialty Start Date End Date Manjit Gorman MD [address] [place], [place] [phone] PCP - General 09/23/22 Olegario Juarez MD [address] [place] [address] Consulting Physician Radiation Oncology 10/29/2207/05 documented as of this encounter
--- OUTSIDE RECORDS SUMMARY | 2024-07-27 06:51 | XMS_ITS | Encounter Summary ---
Author Organization [facility] Address [address] [id number] Care Team Providers Care Assembler Molded Frames Name Role Phone Manjit Gorman MD Primary Care Provider [phone] Olegario Juarez MD Unavailable [phone] Reason for Referral * Imaging (Routine) - Closed Specialty Diagnoses / Procedures Referred By Contac t Referred To Contact Radiology Diagnoses Cancer of base of tongue (CMS/HCC) Secondary hypertension Procedures CT Soft Tissue Neck w IV Contrast Germaine Alejandro MD [address] [place] Moore [address] [address] Phone: tel: fax: Referral ID Status Reason Start Date Expiration Date Visits Re quested Visits Authorized [id number] Closed 10/14/2023 04/14/2025 1 1 Reason for Visit * Reason Comments Follow-up Encounter Details Date Type Department Care Team (Late st Contact Info) Description 10/15/2023 2:50 PM EST Office Visit [facility] [address] [place] [address] Germaine Alejandro MD 800 [facility] Jyothi Moore [address] [address] 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); Secondary hypertension Social History Tobacco Use Types [...] Sign Reading Time Taken Comments Blood Pressure 153/88 10/15/2023 2:58 PM EST Pulse 65 10/15/2023 2:58 PM EST Temperature 36.3 ??C (97.4 ??F) 10/15/2023 2:58 PM ES T Respiratory Rate 16 10/15/2023 2:58 PM EST Oxygen Saturation 97% 10/15/2023 2:58 PM EST Inhaled Oxygen Concentration - - Weight 78.8 kg (173 lb 11.6 oz) 10/15/2023 2:58 PM EST Height 188 cm (6' 2.02 ) 10/15/2023 2:58 PM EST Body Mass Index 22.29 10/15/2023 2:58 PM EST documented in this encounter Miscellaneous Notes * Progress Notes - Germaine Alejandro MD - 10/15/2023 2:50 PM EST MEDICAL ONCOLOGY FOLLOW-UP NOTE Patient Information Patient Name: Erick Sierra Date of : 1950 REFERRING PHYSICIAN: Manjit Gorman MD Encounter Date: 10/16/2023 Treatment Diagnosis: Cancer Staging Cancer of base of tongue (CMS/HCC) Staging form: Pharynx - HPV-Mediated Oropharynx, AJCC 8th Edition - Clinical stage from 10/29/2022: Stage I (cT2, cN1, cM0, p16+) - Signed by Germaine Alejandro MD on11/10/2022 History of Present Illness: Erick Sierra is a 73 y.o. male who returns for followup of his Cancer Staging Cancer of base of tongue (CMS/HCC), Staging form: Pharynx - HPV-Mediated Oropharynx, AJCC 8th Edition, Clinical: Stage I. he returns for followup after treatment of head and neck cancer. 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 He initially noticed RIGHT-sided throat pain in March 2022, followed by swelling in his neck. His dentist didn't find any abnormality to explain his pain. When he developed a right cervical neck mass and was referred to ENT. 08/12/2022. CT Neck: right-sided cervical lymphadenopathy and asymmetry in the right base of tongue/oropharynx. In 09/15/2022 an excisional lymph node biopsy revealed metastatic squamous cell carcinoma, P16 diffusely positive. On 10/09/22, Mr. Sierra went to the OR with Dr. Cee for DL with biopsy of a RIGHT base of tongue lesion. Pathology was confirmed as p16+ SqCC, staged [id number]. CT Chest 10/21/22 showed no metastatic disease. PET/CT 10/21/22 demonstrated a hypermetabolic RIGHT BOT mass and hypermetabolic RIGHT level IIA (2cm) and IIB (0.7cm) nodes. S/p cisplatin + XRT from 11/14/22 to 12/30/22. Cancer of base of tongue (CMS/HCC) 10/29/2022 Initial Diagnosis Cancer of base of tongue (CMS/HCC) 10/29/2022 Cancer Staged Staging form: Pharynx - HPV-Mediated Oropharynx, AJCC 8th Edition, Clinical stage from 10/29/2022: Stage I (cT2, cN1, cM0, p16+) - Signed by Germaine Alejandro MD on 11/10/2022 11/14/2022 - 12/26/2022 Chemotherapy CISplatin (Platinol) 208 mg in sodium chloride 500 mL chemo IV, 100 mg/m2 = 208 mg, Intravenous, Once, 3 of 3 cycles Dose modification: 50 mg/m2 (original dose 100 mg/m2, Cycle 3) Administration: 208 mg (11/14/2022), 208 mg (12/05/2022), 100 mg (12/26/2022) aprepitant (Cinvanti) 130 MG/18ML IV 130 mg, 130 mg, Intravenous, Once, 3 of 3 cycles Administration: 130 mg (11/14/2022), 130 mg (12/05/2022), 130 mg (12/26/2022) Radiation Treatments Active No active radiation treatments to show. Historical Plans RtOropharynx Most recent treatment: Dose planned: 200 cGy (fraction 35 on 12/30/2022) Total: Dose planned: 7,000 cGy (35 fractions) Elapsed Days: 49 Reference Points RtOropharyn+Neck Most recent treatment: Dose given: 200 cGy (on 12/30/2022) Total: Dose given: 7,000 cGy Elapsed Days: 49 Currently, he denies fever, or chills, nausea, vomiting, but has chronic dry mouth. Problem List and Medications Reviewed in this encounter by me personally Objective Performance Status 0: Fully active, able to carry on all pre-disease performance without restriction Blood pressure (!) 153/88, pulse 65, temperature 36.3 ??C (97.4 ??F), temperature source Oral, resp. rate 16, height 1.88 m (6' 2.02 ), weight 78.8 kg (173 lb 11.6 oz), SpO2 97 %. EXAM Physical Exam Constitutional: General: He is not in acute distress. Appearance: He is not ill-appearing. HENT: Head: Normocephalic and atraumatic. Right Ear: External ear normal. Left Ear: External ear normal. Nose: Nose normal. Mouth/Throat: Mouth: Mucous membranes are moist. Pharynx: No oropharyngeal exudate or posterior oropharyngeal erythema. Eyes: Extraocular Movements: Extraocular movements intact. Pupils: Pupils are equal, round, and reactive to light. Neck: Comments: Radiation changes (chronic) Cardiovascular: Rate and Rhythm: Normal rate and regular rhythm. Heart sounds: No murmur heard. No friction rub. No gallop. Pulmonary: Effort: Pulmonary effort is normal. No respiratory distress. Breath sounds: Normal breath sounds. No stridor. No wheezing, rhonchi or rales. Abdominal: General: Bowel sounds are normal. There is no distension. Tenderness: There is no abdominal tenderness. Musculoskeletal: Cervical back: No tenderness. Lymphadenopathy: Cervical: No cervical adenopathy. Skin: General: Skin is warm and dry. Neurological: Mental Status: He is alert. Cranial Nerves: Cranial nerve deficit (decreased hearign bilaterally) present. No dysarthria. Sensory: No sensory deficit. Gait: Gait normal. Psychiatric: Mood and Affect: Mood normal. Behavior: Behavior normal. LABORATORIES STUDIES: reviewed by me personally today to monitor for cancer related drug toxicity and treatment related care home toxicity CBC WBC 4.65 Hgb 13.2 PLT 247 HCT 40.0 Lab Results Component Value Date NEUTROABS 3.51 10/13/2023 BMPL Na 143 Cl 107 BUN 28 Gluc 89 K 4.2 Co2 25 Creat 1.25 LIVER FUNCTION TESTING Tot Prot 6.8 AST 25 Tot bili 0.3 ALT 22 Alkphos 60 Ca 9.5 Mg 1.8 Lab Results Component Value Date TSH 3.51 10/13/2023 RADIOLOGY: I independently visualized the recent imaging below based on the patient's symptoms and oncologic history. CT Chest w IV Contrast Result Date: 10/13/2023 Impression: No evidence of disease progression in the chest. Stable clustered nodules in the right lower lobe partial calcified left lower lobe nodule. There are nodules. CRITICAL RESULT: No. COMMUNICATION: Per this written report. Drafted by Kobe Hutchins MD on 10/13/2023 2:48 PM Final report signed by Kobe Hutchins MD on 10/13/2023 3:[address] Soft Tissue Neck w IV Contrast Result Date: 10/15/2023 Impression: Stable soft tissue neck CT with contrast since the previous exam of 07/10/23 with posttreatment changes at the level of the oropharynx and into the soft tissues of the right neck. Case finalized 4:10 PM [place]. Mauricio Jacob MD This report has been electronically signed and verified by the Radiologist whose name is printed above. / Assessment/Plan 1. Cancer management : Erick Sierra is a 72 y.o. male with Cancer Staging Cancer of base of tongue (CMS/HCC), Staging form: Pharynx - HPV-Mediated Oropharynx, AJCC 8th Edition, Clinical: Stage I with metastasis to lymph nodes. This represents a life threatening illness forwhich urgent cancer treatment is indicated. - Squamous cancer of BOT s/p Cisplatin and radiation. - I independently visualized the recent imaging given the patient's symptoms and oncologic history and discussed the current radiology findings with the patient in detail and answered all questions. I agree that this shows excellent response of squamous cell carcinoma of the head and neck. NO EVIDENCE OF DISEASE PROGRESSION. - I reviewed liver and renal function as well as bone marrow function in relationship to this patient's prior systemic cancer treatment - RTC in 4 M with labs/scans 2. Dysphagia Advancing diet as tolerated 4. Monitoring for appearance of hypothyroidism - TSH WNL on 10/13/23 Germaine Alejandro MD Orders Placed This Encounter Procedures CT Soft Tissue Neck w IV Contrast Thyroid Stimulating Hormone, Plasma Comprehensive Metabolic Panel, Plasma CBC and Differential documented in this encounter Plan of Treatment Upcoming Encounters Date Type Department Care Team (Late st Contact Info) Description 10/17/2024 8:00 AM EST Clinical Support [facility] [address] [phone] 10/17/2024 9:00 AM EST Appointment [facility] PET Scan [address] [place] [phone] 10/17/2024 10:00 AM EST Appointment [facility] PET Scan [address] [place] [phone] 10/17/2024 11:00 AM EST Office Visit [facility] [address] [phone] Juan Pablo Cee MD [address] [facility] [address] [place] [address] 10/17/2024 1:00 PM EST Clinical Support [facility] [address] [phone] 10/17/2024 2:20 PM EST Appointment [facility] Rad[facility] [address] [place] [phone] 10/20/2024 3:30 PM EST Office Visit [facility] Res[facility] [address] [phone] Germaine Alejandro MD 800 [facility] [place] [address] [place] [phone] documented as of this encounter Results * CT Soft Tissue Neck w IV Contrast (02/16/2024 1:33 PM EDT) Anatomical Region Laterality Modality Neck Computed Tomogra phy Impressions 02/17/2024 4:44 PM EDT Sequela of posttreatment changes within the neck. Interval mild decrease in the size of right submandibular lymph node. No new lymphadenopathy No evidence of disease progression CRITICAL RESULT: No. COMMUNICATION: Per this written report. By electronically signing this report, I, the attending physician, attest that I have personally reviewed the images/data for the above examination(s) and agree with the final edited report. Drafted by Teresita Escoto MD on 02/17/2024 10:11 AM Final report signed by Ray Ragsdale on 02/17/2024 4:44 PM Narrative 02/17/2024 4:44 PM EDT CLINICAL INDICATION: Head/neck cancer, assess treatment response Medical record review: 73 y.o. male with history of T2 N1 M0 P 16 positive squamous cell carcinoma of the right base of tongue metastatic to the right neck s/p chemoradiation therapy from 11/11/2022 to 12/30/2022. TECHNIQUE: Helical images were obtained through the neck, and reconstructed in the axial plane on bone and soft tissue algorithm at multiple slice thicknesses. Coronal and sagittal reformatted images were created. 100 mL of Omnipaque 300 were administered intravenously. Total DLP (Dose-Length Product): 350.45 mGy.cm. Please note: The reported value represents the total of one or more individual components during the CT acquisition on this date and at this time, and as such, the same value may appear in more than one CT report depending on the interpreting/reporting physicians. COMPARISON: Multiple CT soft tissue neck with IV contrast most recent from 10/13/2023 and 07/10/2023. FINDINGS: Diagnostic Quality: Degraded by streak artifact from dental material. Soft Tissues: No masses are present within the soft tissues of the neck. Lymph Nodes: No significant new cervical adenopathy is present. Interval mild decrease in size of right level 1B subcentimeter lymph node currently measure 0.6 x 0.4 cm (series 3 image 208) ,previously measures 0.7 x 0.4 cm . Pharynx/Larynx: Thickening of pharyngeal and laryngeal soft tissues likely due to posttreatment changes. No new enhancing mass is seen stable right base of tongue/glossotonsillar sulcus, without new enhancement or mass. Symmetric glottis. Oral Cavity: No large masses are present within the oral cavity within the limitations of the study. Normal floor of mouth. Normal submental space. Parapharyngeal Space: No lesions are present within the parapharyngeal space. Salivary Glands: The parotid and submandibular glands are normal in size without definite focal lesions. Thyroid: No focal thyroid lesions are present, within the limitations of the study. Orbits/Paranasal Sinuses/Skull Base: No orbital masses are present within the visualized portions of the orbits. Probable retention cyst within the right maxillary sinus. The other visualized paranasal sinuses are clear. Within the skull base, there is no focal lesion or destructive process. Bones/Spine: Generalized osteopenia There are spondylotic changes of the spine with multilevel intervertebral disc space narrowing. Reverse cervical lordosis. Degenerative changes of temporomandibular joints No bony destructive lesion is present. Solid fusion across the right C2-3 facets with virtual or complete fusion now present across C3-4 right-sided facets. Thoracic Inlet and Lung Apices: Within the limitations of the study, no large masses are present at the thoracic inlet. The lung apices are grossly clear. Other Findings: None. Procedure Note Ray Ragsdale MD - 02/17/2024 CLINICAL INDICATION: Head/neck cancer, assess treatment response Medical record review: 73 y.o. male with history of T2 N1 M0 P 16 positivesquamous cell carcinoma of the right base of tongue metastatic to theright neck s/p chemoradiation therapy from 11/11/2022 to 12/30/2022. TECHNIQUE: Helical images were obtained through the neck, and reconstructed in theaxial plane on bone and soft tissue algorithm at multiple slicethicknesses. Coronal and sagittal reformatted images were created. 100 mLof Omnipaque 300 were administered intravenously. Total DLP (Dose-Length Product): 350.45 mGy.cm. Please note: The reportedvalue represents the total of one or more individual components during theCT acquisition on this date and at this time, and as such, the same valuemay appear in more than one CT report depending on theinterpreting/reporting physicians. COMPARISON: Multiple CT soft tissue neck with IV contrast most recent from 10/13/2023nd 07/10/2023. FINDINGS: Diagnostic Quality: Degraded by streak artifact from dental material. Soft Tissues: No masses are present within the soft tissues of the neck. Lymph Nodes: No significant new cervical adenopathy is present. Intervalmild decrease in size of right level 1B subcentimeter lymph node currentlymeasure 0.6 x 0.4 cm (series 3 image 208) ,previously measures 0.7 x 0.4cm . Pharynx/Larynx: Thickening of pharyngeal and laryngeal soft tissues likelydue to posttreatment changes. No new enhancing mass is seen stable rightbase of tongue/glossotonsillar sulcus, without new enhancement or mass.Symmetric glottis. Oral Cavity: No large masses are present within the oral cavity within thelimitations of the study. Normal floor of mouth. Normal submental space. Parapharyngeal Space: No lesions are present within the parapharyngealspace. Salivary Glands: The parotid and submandibular glands are normal in sizewithout definite focal lesions. Thyroid: No focal thyroid lesions are present, within the limitations ofthe study. Orbits/Paranasal Sinuses/Skull Base: No orbital masses are present withinthe visualized portions of the orbits. Probable retention cyst within theright maxillary sinus. The other visualized paranasal sinuses are clear.Within the skull base, there is no focal lesion or destructive process. Bones/Spine: Generalized osteopenia There are spondylotic changes of thespine with multilevel intervertebral disc space narrowing. Reversecervical lordosis. Degenerative changes of temporomandibular joints Nobony destructive lesion is present. Solid fusion across the right C2-3facets with virtual or complete fusion now present across C3-4 right-sidedfacets. Thoracic Inlet and Lung Apices: Within the limitations of the study, nolarge masses are present at the thoracic inlet. The lung apices aregrossly clear. Other Findings: None. IMPRESSION: Sequela of posttreatment changes within the neck. Interval mild decreasein the size of right submandibular lymph node. No new lymphadenopathy No evidence of disease progression CRITICAL RESULT: No. COMMUNICATION: Per this written report. By electronically signing this report, I, the attending physician, attdhiraj I have personally reviewed the images/data for the aboveexamination(s) and agree with the final edited report. Drafted by Teresita Escoto MD on 02/17/2024 10:11 AM Final report signed by Ray Ragsdale on 02/17/2024 4:44 PM Germaine Alejandro MD IMG CT PROCEDURES Final Resu lt * (ABNORMAL) CBC and Differential (02/16/2024 11:48 AM EDT) WBC Count 4.55 3.70 - 10.30 10*3/uL LAB HEMATOLOGY METHOD 02/16/2024 12:08 PM EDT [facility] RBC Count 4.44(L) 4.60 - 6.10 10*6/uL LAB HEMATOLOGY METHOD 02/16/2024 12:08 PM EDT [facility] HGB 13.5(L) 13.7 - 17.5 g/dL LAB HEMATOLOGY METHOD 02/16/2024 12:08 PM EDT [facility] HCT 41.0 40.0 - 51.0 % LAB HEMATOLOGY METHOD 02/16/2024 12:08 PM EDT [facility] Platelet Count 241 155 - 369 10*3/uL LAB HEMATOLOGY METHOD 02/16/2024 12:08 PM EDT [facility] MCV 92 79 - 98 fL LAB HEMATOLOGY METHOD 02/16/2024 12:08 PM EDT [facility] MCH 30.4 26.0 - 32.0 pg LAB HEMATOLOGY METHOD 02/16/2024 12:08 PM EDT [facility] MCHC 32.9 30.7 - 35.5 g/dL LAB HEMATOLOGY METHOD 02/16/2024 12:08 PM EDT [facility] RDW 13.2 11.5 - 14.5 % LAB HEMATOLOGY METHOD 02/16/2024 12:08 PM EDT [facility] MPV 8.7(L) 8.8 - 12.5 fL LAB HEMATOLOGY METHOD 02/16/2024 12:08 PM EDT [facility] nRBC 0.0 <=0.0 per 100 WBCs LAB HEMATOLOGY METHOD 02/16/2024 12:08 PM EDT [facility] Differential Type Automated LAB HEMATOLOGY METHOD 02/16/2024 12:08 PM EDT [facility] Neutrophils % 73.0 % LAB HEMATOLOGY METHOD 02/16/2024 12:08 PM EDT [facility] Lymphocytes % 12.0 % LAB HEMATOLOGY METHOD 02/16/2024 12:08 PM EDT [facility] Monocytes % 12.0 % LAB HEMATOLOGY METHOD 02/16/2024 12:08 PM EDT [facility] Eosinophils % 2.0 % LAB HEMATOLOGY METHOD 02/16/2024 12:08 PM EDT [facility] Basophils % 1.0 % LAB HEMATOLOGY METHOD 02/16/2024 12:08 PM EDT [facility] Immature Granulocytes % 0.0 % LAB HEMATOLOGY METHOD 02/16/2024 12:08 PM EDT [facility] Neutrophils Absolute 3.32 1.60 - 6.10 10*3/uL LAB HEMATOLOGY METHOD 02/16/2024 12:08 PM EDT [facility] Lymphocytes Absolute 0.54(L) 1.20 - 3.90 10*3/uL LAB HEMATOLOGY METHOD 02/16/2024 12:08 PM EDT [facility] Monocytes Absolute 0.53 0.30 - 0.90 10*3/uL LAB HEMATOLOGY METHOD 02/16/2024 12:08 PM EDT [facility] Eosinophils Absolute 0.10 0.00 - 0.50 10*3/uL LAB HEMATOLOGY METHOD 02/16/2024 12:08 PM EDT [facility] Basophils Absolute 0.04 0.00 - 0.10 10*3/uL LAB HEMATOLOGY METHOD 02/16/2024 12:08 PM EDT [facility] Immature Granulocytes Absolute 0.02 0.00 - 0.06 10*3/uL LAB HEMATOLOGY METHOD 02/16/2024 12:08 PM EDT [facility] Blood Venous blood specimen / Unknown Venipuncture / Unknown 02/16/2024 11:48 AM EDT 02/16/2024 11:57 AM EDT [facility] - 02/16/2024 12:08 PM EDT Therapeutic decision making should be based on absolute values, rather than percentages. us Germaine Alejandro MD LAB BLOOD ORDERABLES Final R esult [facility] [address] [place] [phone] * (ABNORMAL) Comprehensive Metabolic Panel, Plasma (02/16/2024 11:48 AM EDT) [facility] Glucose, Plasma 101(H) 74 - 99 mg/dL 02/16/2024 12:36 PM EDT [facility] BUN, Plasma 20 8 - 23 mg/dL 02/16/2024 12:36 PM EDT [facility] Creatinine, Plasma 1.18 0.80 - 1.30 mg/dL 02/16/2024 12:36 PM EDT [facility] BUN/Creatinine Ratio 17 02/16/2024 12:36 PM EDT [facility] Sodium, Plasma 140 136 - 145 mmol/L 02/16/2024 12:36 PM EDT [facility] Potassium, Plasma 4.6 3.7 - 4.8 mmol/L 02/16/2024 12:36 PM EDT [facility] Chloride, Plasma 103 97 - 107 mmol/L 02/16/2024 12:36 PM EDT [facility] CO2, Plasma 26 22 - 29 mmol/L 02/16/2024 12:36 PM EDT [facility] Anion Gap 11 6 - 16 mmol/L 02/16/2024 12:36 PM EDT [facility] Total Calcium, Plasma 9.2 8.9 - 10.2 mg/dL 02/16/2024 12:36 PM EDT [facility] Total Protein 6.3 6.3 - 7.9 g/dL 02/16/2024 12:36 PM EDT [facility] Albumin, Plasma 4.0 3.5 - 5.2 g/dL 02/16/2024 12:36 PM EDT [facility] AST, Plasma 23 10 - 50 U/L 02/16/2024 12:36 PM EDT [facility] ALT, Plasma 21 10 - 50 U/L 02/16/2024 12:36 PM EDT [facility] Alkaline Phosphatase, Plasma 62 40 - 115 U/L 02/16/2024 12:36 PM EDT [facility] Total Bilirubin, Plasma 0.3 0.2 - 1.1 mg/dL 02/16/2024 12:36 PM EDT [facility] eGFRcr 65.2 mL/min/1.7 3m*2 02/16/2024 12:36 PM EDT [facility] Comment:Reported eGFRcr in m L/min/1.73m2 is based the CKD-EPI 2020 equation that does not use a race coefficient. Blood Venous blood specimen / Unknown Venipuncture / Unknown 02/16/2024 11:48 AM EDT 02/16/2024 11:57 AM EDT Germaine Alejandro MD LAB BLOOD ORDERABLES Final R esult Performing Organization Address City/[facility]/ZIP Co de Phone Number [facility] [address] [place] [address] * (ABNORMAL) Thyroid Stimulating Hormone, Plasma (02/16/2024 11:48 AM EDT) Thyroid Stimulating Hormone, Plasma 4.40(H) 0.40 - 4.20 uIU/mL 02/16/2024 12:36 PM EDT [facility] Blood Venous blood specimen / Unknown Venipuncture / Unknown 02/16/2024 11:48 AM EDT 02/16/2024 11:57 AM EDT Germaine Alejandro MD LAB BLOOD ORDERABLES Final R esult Performing Organization Address City/[facility] Co de Phone Number [facility] [address] [place] [address] documented in this encounter Visit Diagnoses Diagnosis Cancer of base of tongue (CMS/HCC)- Primary Malignant neoplasm of base of tongue Secondary hypertension Other secondary hypertension, unspecified 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 Secondary hypertension Other secondary hypertension, unspecified documented in this encounter Additional Health Concerns Assessment Noted Time A fall risk assessment has been complete d for the patient 10/15/2023 3:01 PM EST documented as of this encounter Care Teams Assembler Molded Frames Relationship Specialty Start Date End Date Manjit Gorman MD [address] [place] [address] PCP - General 09/23/22 Olegario Juarez MD [address] [place] [phone] Consulting Physician Radiation Oncology 10/29/2207/05 documented as of this encounter
--- OUTSIDE RECORDS SUMMARY | 2024-07-27 06:51 | XMS_ITS | Encounter Summary ---
Author Organization [facility] Address [address] [place], [place] [address] Care Team Providers Care Radio Television Announcer Name Role Phone Manjit Gorman MD Primary Care Provider [phone] Olegario Juarez MD Unavailable [phone] Encounter Details Date Type Department Care Team (Latest Contact Info) Description 02/17/2024 Travel Social History Tobacco Use Types Packs/Day [...] [facility] [address] [address] 10/17/2024 9:00 AM EST Appointment [facility] PET Scan 800 [place] [address] 10/17/2024 10:00 AM EST Appointment [facility] PET Scan 800 [place] [address] 10/17/2024 11:00 AM EST Office Visit [facility] [address] [phone] Juan Pablo Cee MD [address] [facility] [address] [place] [address] 10/17/2024 1:00 PM EST Clinical Support [facility] [address] [place] [address] 10/17/2024 2:20 PM EST Appointment [facility] Radiology [address] [place] [address] 10/20/2024 3:30 PM EST Office Visit [facility] Res[facility] 800 [facility], 2nd [place] [address] Germaine Alejandro MD [address] [place] [address] documented as of this encounter Visit Diagnoses Not on filedocumented in this encounter Additional Health Concerns Assessment Noted Time A fall risk assessment has been complete d for the patient 12/10/2023 9:11 AM EDT documented as of this encounter Care Teams Radio Television Announcer Relationship Specialty Start Date End Date Manjit Gorman MD [address] [place], [place] [phone] PCP - General 09/23/22 Olegario Juarez MD [address] [place] [address] Consulting Physician Radiation Oncology 10/29/2207/05 documented as of this encounter
--- OUTSIDE RECORDS SUMMARY | 2024-07-27 06:51 | XMS_ITS | Encounter Summary ---
Author Organization [facility] Address [address] [place], [place] [address] Care Team Providers Care Beverage Manager Name Role Phone Manjit Gorman MD Primary Care Provider [phone] Olegario Juarez MD Unavailable [phone] Reason for Referral * Imaging (Routine) - Closed Specialty Diagnoses / Procedures Referred By Terri del rosario Referred To Contact Radiology Diagnoses Cancer of base of tongue (CMS/HCC) Secondary hypertension Procedures CT Soft Tissue Neck w IV Contrast Germaine Alejandro MD [address] [address] Phone: tel: fax: Referral ID Status Reason Start Date Expiration Date Visits Re quested Visits Authorized [id number] Closed 10/14/2023 04/14/2025 1 1 Reason for Visit * Imaging (Routine) - Closed Specialty Diagnoses / Procedures Referred By Terri del rosario Referred To Contact Radiology Diagnoses Cancer of base of tongue (CMS/HCC) Secondary hypertension Procedures CT Soft Tissue Neck w IV Contrast Germaine Alejandro MD [address] [address] Phone: tel: fax: Referral ID Status Reason Start Date Expiration Date Visits Re quested Visits Authorized [id number] Closed 10/14/2023 04/14/2025 1 1 Encounter Details Date Type Department Care Team (Latest Contact Info) Description 02/16/2024 12:48 PM EDT - 02/16/2024 11:59 PM EDT Hospital Encounter [facility] [address] [place] [address] Cancer of base of tongue (CMS/HCC); Secondary hypertension Discharge Disposition: Home or Self Care Social [...] as of this encounter Miscellaneous Notes * Ventura Goodwin P - 02/16/2024 1:10 PM EDT Images from the original note were not included. 1639 Caring for Yourself after Contrast Imaging If you had ORAL contrast: ?? You can go back to your normal diet and activities as tolerated. ?? Drink plenty of fluids, unless told otherwise. If you had IV contrast: ?? You can go back to your normal diet and activities as tolerated. ?? Drink plenty of fluids, unless told otherwise. ?? Leave a bandage on the site for 30 minutes (where the IV was inserted or blood was drawn). If you had Intravesical (bladder) contrast: ?? Return to normal diet and activity. What you need to know about delayed reaction to IV contrast What is IV Contrast? ?? Contrast is a dye that is put into your body through an IV. ?? It is used for imaging scans such as CT scans and MRIs. ?? The contrast makes blood vessels, organs and other parts of your body show up better on the scan. What do I need to do after IV contrast? ?? Drink lots of fluids. This will help flush the contrast out of your system. ?? Drink 2-3 extra glasses or bottles of water within 4 hours of your scan. What is a contrast reaction? ?? A contrast reaction is a bad side effect from the contrast dye. ?? It is rare but it does happen. ?? They can be mild - such as sneezing, itching, or hives. ?? They can be severe - such as trouble breathing, throat swelling, and irregular heart beat. When do these reactions happen? ?? They often happen right after the contrast is injected. ?? Some happen hours after going home. Go to the nearest Emergency Department right away if you have any of these symptoms after you leavethe clinic or hospital. ?? Sneezing ?? Itching in your mouth, throat, eyes, ears, or skin ?? Rash or hives ?? Throwing up or stomach sickness ?? High heart rate or ?racing? of your heart ?? Feeling dizzy or woozy ?? Feeling short of breath or like you can?t take a deep breath ?? Feeling very anxious for no other reason It is very important that these reactions be treated. Tell the doctor or nurse that you are having a reaction to IV contrast dye. Do not ignore any sign of a reaction! All reactions must be assessed by a doctor. Call 911 if you are alone and your reaction is more than mild sneezing or itching. If you have a mild reaction, call to speak with a Radiologist, explain that you havehad a contrast reaction, as this needs to be added to your medical record. documented in this encounter Plan of Treatment Upcoming Encounters Date Type Department Care Team (Piyush baker Contact Info) Description 10/17/2024 8:00 AM EST Clinical Support [facility] Res[facility] 800 [facility], [address]nd [place] [address] 10/17/2024 9:00 AM EST Appointment [facility] PET Scan 800 [place] [address] 10/17/2024 10:00 AM EST Appointment [facility] PET Scan 800 [place] [address] 10/17/2024 11:00 AM EST Office Visit [facility]ck [facility] Respiratory 800 [facility] [address] [place] [address] Juan Pablo Cee MD [address] [facility] [address] [place] [address] 10/17/2024 1:00 PM EST Clinical Support [facility] [address] [address] 10/17/2024 2:20 PM EST Appointment [facility] Radiology [address] [place] [address] 10/20/2024 3:30 PM EST Office Visit [facility] [address] [phone] Germaine Alejandro MD 800 [facility] [address] [place] [address] documented as of this encounter Procedures Procedure Name Priority Date/Time Associated Diagnosis Comments CT SOFT TISSUE NECK W IV CONTRAST Routine 02/16/2024 1:33 PM EDT Cancer of base of tongue (CMS/HCC) Secondary hypertension documented in this encounter Results * CT [...] signing this report, I, the attending physician, nima I have personally reviewed the images/data for the aboveexamination(s) and agree with the final edited report. Drafted by Teresita Escoto MD on 02/17/2024 10:11 AM Final report signed by Ray Ragsdale on 02/17/2024 4:44 PM Germaine Alejandro MD IMG CT PROCEDURES Final Resu lt documented in this encounter Visit Diagnoses Diagnosis 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 Secondary hypertension Other secondary hypertension, unspecified documented in this encounter Administered Medications Inactive Administered Medications - up to 3 most recent administrations Medication Order MAR Action Action Date Dose Rate Site iohexol (OMNIPaque) 300 MG/ML injection 100 mL 100 mL, Intravenous, Once in imaging, 1 dose, Starting on Thu02/16/24 at 1310, Until Thu02/16/24 at 1333, Routine, Imaging Protocol Orders Given 02/16/2024 1:33 PM EDT 80 mL documented in this encounter Additional Health Concerns Assessment Noted Time A fall risk assessment has been complete d for the patient 12/10/2023 9:11 AM EDT documented as of this encounter Care Teams Beverage Manager Relationship Specialty Start Date End Date Manjit Gorman MD [address] [place] [address] PCP - General 09/23/22 Olegario Juarez MD [address] [phone] Consulting Physician Radiation Oncology 10/29/2207/05 documented as of this encounter
--- OUTSIDE RECORDS SUMMARY | 2024-07-27 06:51 | XMS_ITS | Encounter Summary ---
Author Organization [facility] Address [address] [place] [address] Care Team Providers Care Welding Equipment Repairer Supervisor Name Role Phone Manjit Gorman MD Primary Care Provider [phone] Olegario Juarez MD Unavailable [phone] Reason for Referral * Imaging (Routine) - Closed Specialty Diagnoses / Procedures Referred By Terri del rosario Referred To Contact Radiology Diagnoses Oropharynx neoplasm Procedures CT Soft Tissue Neck w IV Contrast CT Soft Tissue Neck w and wo IV Contrast Eduardo Johnston MD [address] [address] Phone: tel: fax: Referral ID Status Reason Start Date Expiration Date Visits Re quested Visits Authorized [id number] Closed 04/13/2024 10/13/2025 1 1 * Imaging (Routine) - Closed Specialty Diagnoses / Procedures Referred By Terri del rosario Referred To Contact Radiology Diagnoses Oropharynx neoplasm Procedures CT Chest w IV Contrast Eduardo Johnston MD [address] [address] Phone: tel: fax: Referral ID Status Reason Start Date Expiration Date Visits Re quested Visits Authorized [id number] Closed 04/13/2024 10/13/2025 1 1 Encounter Details Date Type Department Care Team (Late st Contact Info) Description 04/13/2024 Orders Only [facility] Radiation 800 [facility]. [id number] [place] [address] Eduardo Johnston MD 800 [facility] [address] [place] [address] Oropharynx neoplasm (Primary Dx) Social History Tobacco Use Types [...] [facility] Res[facility] 800 [facility] [address] [place] [address] 10/17/2024 9:00 AM EST Appointment [facility] PET Scan 800 [place] [address] 10/17/2024 10:00 AM EST Appointment [facility] PET Scan 800 [place] [address] 10/17/2024 11:00 AM EST Office Visit [facility] Neck [facility] Respiratory 800 [facility], [address] [place] [address] Juan Pablo Cee MD [address] [facility] [address] [place] [address] 10/17/2024 1:00 PM EST Clinical Support [facility]ck [facility] Respiratory 800 [facility], [address] [place] [address] 10/17/2024 2:20 PM EST Appointment [facility] Radiology [address] [place] [address] 10/20/2024 3:30 PM EST Office Visit [facility] Head[facility] Neck [facility] Respiratory 800 [facility], [address]nd [place] [address] Germaine Alejandro MD 800 [facility] [address] [place] [address] documented as of this encounter Results * [...] Trevor Foy MD on 06/27/2024 1:47 PM us Eduardo Johnston MD IMG CT [...] Jac Gomez MD on 06/22/2024 2:13 PM Eduardo Johnston MD IMG CT PROCEDURES Final Resu lt documented in this encounter Visit Diagnoses Diagnosis 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
--- OUTSIDE RECORDS SUMMARY | 2024-07-27 06:51 | XMS_ITS | Encounter Summary ---
Author Organization [facility] Address [address] [id number] Care Team Providers Care Show Host Or Hostess Name Role Phone Manjit Gorman MD Primary Care Provider [phone] Olegario Juarez MD Unavailable [phone] Reason for Visit * Reason Comments Follow-up Encounter Details Date Type Department Care Team ([facility] Contact Info) Description 12/10/2023 9:15 AM EDT Office Visit [facility] Head[facility] Neck [facility] Respiratory [address], [address] [place] [address] Juan Pablo Cee MD [address] [facility] [address] [place] [address] Cancer of base of tongue (CMS/HCC) [...] Sign Reading Time Taken Comments Blood Pressure 137/72 12/10/2023 9:09 AM EDT Pulse 76 12/10/2023 9:09 AM EDT Temperature 36.4 ??C (97.5 ??F) 12/10/2023 9:09 AM ED T Respiratory Rate 18 12/10/2023 9:09 AM EDT Oxygen Saturation 100% 12/10/2023 9:09 AM EDT Inhaled Oxygen Concentration - - Weight 80.3 kg (177 lb 0.5 oz) 12/10/2023 9:09 A M EDT Height 188 cm (6' 2 ) 12/10/2023 9:09 AM EDT Body Mass Index 22.73 12/10/2023 9:09 AM EDT documented in this encounter Miscellaneous Notes * Addendum Note - Jenni Canales RN - 12/10/2023 9:15 AM EDTAddended by: JENNI CANALES on: 12/10/2023 10:32 AM Modules accepted: Orders * Progress Notes - Juan Pablo Cee MD - 12/10/2023 9:15 AM EDT Images from the original note were not included. Mr. Erick Sierra is a very pleasant 73 y.o. patient who is returning to the clinic today for his follow-up. He was last seen in my clinic on 08/03/2023 and recommended a follow-up in December 2023. He has a T2 N1 M0 P [...] nodules in the right lower lung. He was evaluated by Dr. Alejandro and he has scans in February 2024. He has been doing very well since last visit and denies any new symptoms. His sense of taste was initially 0% however it is about 60-70% right now. 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 He denies any other symptoms. The patient reported otalgia, denies otorrhea, hearing loss, vertigo or tinnitus. He denied having sinonasal symptoms, postnasal drip, epistaxis, nasal congestion/obstruction or anosmia/hyposmia. He also denied, odynophagia, dysphonia, dyspepsia, dyspnea or reflux disease. The patient's complete review of system from 12/10/23 was performed today. All systems were negative [...] illicit drugs PHYSICAL EXAMINATION: Visit Vitals BP 137/72 (BP Location: Left arm) Pulse 76 Temp 36.4 ??C (97.5 ??F) (Oral) Ht 1.88 m (6' 2 ) Wt 80.3 kg (177 lb 0.5 oz) SpO2 100% BMI 22.73 kg/m?? General: He is a very healthy-appearing [...] questions to the best of my abilities. He is doing very well clinically and does not have any evidence of disease. I read the follow-up note from Dr. Alejandro and from radiation oncology and he does not have any evidence of disease at this time. He has scheduled scans in February 2024 and follow up with Dr. Alejandro. I very thoroughly reviewed the CT scans of the neck and chest from 10/13/2023 and I do not see any evidence of disease in the head and neck region. The CT scan of the chest revealed stable right lower lung nodule and a calcified left lower lobe nodule. I included photographs in this note and I discussed those findings with the patient. Regarding the patient's head and neck cancer follow-up, I will see him back in my clinic in June2024 and he will need a PET-CT scan down the line. Regarding his lung nodules, he has those nodule stable on the scans and he has upcoming images in February 2024 and follow up with Dr. Alejandro. *Digital speech recognition software was used to dictate this note and, despite all efforts to proofread, some dictation errors may occur. If you have any questions, please do not hesitate to contactme. Juan Pablo Cee MD MS FACS Electrostatic Paint Operator Head & Neck Oncology Rhinology & Skull Base Surgery documented in this encounter Plan of Treatment Upcoming Encounters Date Type Department Care Team ([facility] st Contact Info) Description 10/17/2024 8:00 AM EST Clinical Support [facility]ck [facility] Respiratory [address] [address] 10/17/2024 9:00 AM EST Appointment [facility] PET Scan 800 [place] [address] 10/17/2024 10:00 AM EST Appointment [facility] PET Scan 800 [place] [address] 10/17/2024 11:00 AM EST Office Visit [facility] Head[facility] Neck [facility] Respiratory [address] [address] Juan Pablo Cee MD [address] [facility] [address] [place] [address] 10/17/2024 1:00 PM EST Clinical Support [facility] Head[facility] Neck [facility] Respiratory [address] [address] 10/17/2024 2:20 PM EST Appointment [facility] G Radiology [address] [place] [address] 10/20/2024 3:30 PM EST Office Visit [facility] Head[facility] Neck [facility] Respiratory [address] [address] Germaine Alejandro MD [address] [facility] [address] [place] [address] documented as of this encounter Visit Diagnoses Diagnosis 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 documented in this encounter Additional Health Concerns Assessment Noted Time A fall risk assessment has been complete d for the patient 12/10/2023 9:11 AM EDT documented as of this encounter Care Teams Show Host Or Hostess Relationship Specialty Start Date End Date Manjit Gorman MD [address] [place], [place] [phone] PCP - General 09/23/22 Olegario Juarez MD [address] [place] [address] Consulting Physician Radiation Oncology 10/29/2207/05 documented as of this encounter
--- OUTSIDE RECORDS SUMMARY | 2024-07-27 06:51 | XMS_ITS | Encounter Summary ---
Author Organization [facility] Address [address] [place] [address] [place], [place] [address] Care Team Providers Care General Ledger Accountant Name Role Phone Manjit Gorman MD Primary Care Provider [phone] Olegario Juarez MD Unavailable [phone] Encounter Details Date Type Department Care Team (Latest Contact Info) Description 10/15/2023 Travel Social History Tobacco Use Types Packs/Day [...] [facility] Res[facility] [address] [address] 10/17/2024 9:00 AM EST Appointment [facility] PET Scan 800 [place] [address] 10/17/2024 10:00 AM EST Appointment [facility] PET Scan 800 [place] [address] 10/17/2024 11:00 AM EST Office Visit [facility] Head[facility] Neck [facility] Respiratory [address] [address] Juan Pablo Cee MD [address] [facility] [address] [place] [address] 10/17/2024 1:00 PM EST Clinical Support [facility] Head[facility] Neck [facility] Respiratory [address] [place] [address] 10/17/2024 2:20 PM EST Appointment [facility] Radiology [address] [place] [address] 10/20/2024 3:30 PM EST Office Visit [facility] Head, Neck & Respiratory 800 [facility], 2nd [place] [address] Germaine Alejandro MD [address] [place] [address] documented as of this encounter Visit Diagnoses Not on filedocumented in this encounter Additional Health Concerns Assessment Noted Time A fall risk assessment has been complete d for the patient 10/15/2023 3:01 PM EST documented as of this encounter Care Teams General Ledger Accountant Relationship Specialty Start Date End Date Manjit Gorman MD [address] [place], [place] [phone] PCP - General 09/23/22 Olegario Juarez MD [address] [place] [address] Consulting Physician Radiation Oncology 10/29/2207/05 documented as of this encounter
--- OUTSIDE RECORDS SUMMARY | 2024-07-27 06:51 | XMS_ITS | Encounter Summary ---
Author Organization [facility] Address [address] [place] [id number] Care Team Providers Care Quality Lead Name Role Phone Manjit Gorman MD Primary Care Provider [phone] Olegario Juarez MD Unavailable [phone] Reason for Visit * Reason Comments Labs Peripheral stick lef t arm Encounter Details Date Type Department Care Team (Latest Contact Info) Description 10/13/2023 12:00 PM EST Clinical Support [facility] [address] [address] Cancer of base of tongue (CMS/HCC) Social [...] [facility] 800 [facility] [address] [place] [address] 10/17/2024 9:00 AM EST Appointment [facility] PET Scan 800 [place] [address] 10/17/2024 10:00 AM EST Appointment [facility] PET Scan 800 [place] [address] 10/17/2024 11:00 AM EST Office Visit [facility] 800 [facility] [place] [address] Juan Pablo Cee MD [address] [facility] [address] [place] [address] 10/17/2024 1:00 PM EST Clinical Support [facility] 800 [facility] [place] [address] 10/17/2024 2:20 PM EST Appointment [facility] [address] [place] [address] 10/20/2024 3:30 PM EST Office Visit [facility] 800 [facility], [address] [place] [address] Germaine Alejandro MD 800 [facility] [address] [place] [address] documented as of this encounter Procedures Procedure Name Priority Date/Time Associated Diagnosis Comments CBC WITH AUTO DIFFERENTIAL Routine 10/13/2023 11:53 AM EST Cancer of base of tongue (CMS/HCC) TSH Routine 10/13/2023 11:53 AM EST Cancer of base of tongue (CMS/HCC) COMPREHENSIVE METABOLIC PANEL, PLASMA Routine 10/13/2023 11:53 AM EST Cancer of base of tongue (CMS/HCC) documented in this encounter Results * Thyroid Stimulating Hormone, Plasma (10/13/2023 11:53 AM EST) Thyroid Stimulating Hormone, Plasma 3.51 0.40 - 4.20 uIU/mL 10/13/2023 12:46 PM EST [facility] Blood Venous blood specimen / Unknown Venipuncture / Unknown 10/13/2023 11:53 AM EST 10/13/2023 12:09 PM EST us Germaine Alejandro MD LAB BLOOD ORDERABLES Final R esult [facility] 800 [place] [address] * (ABNORMAL) CBC and Differential (10/13/2023 11:53 AM EST) WBC Count 4.65 3.70 - 10.30 10*3/uL LAB HEMATOLOGY METHOD 10/13/2023 12:18 PM EST [facility] RBC Count 4.29(L) 4.60 - 6.10 10*6/uL LAB HEMATOLOGY METHOD 10/13/2023 12:18 PM EST [facility] HGB 13.2(L) 13.7 - 17.5 g/dL LAB HEMATOLOGY METHOD 10/13/2023 12:18 PM EST [facility] HCT 40.0 40.0 - 51.0 % LAB HEMATOLOGY METHOD 10/13/2023 12:18 PM EST [facility] Platelet Count 247 155 - 369 10*3/uL LAB HEMATOLOGY METHOD 10/13/2023 12:18 PM EST [facility] MCV 93 79 - 98 fL LAB HEMATOLOGY METHOD 10/13/2023 12:18 PM EST [facility] MCH 30.8 26.0 - 32.0 pg LAB HEMATOLOGY METHOD 10/13/2023 12:18 PM EST [facility] MCHC 33.0 30.7 - 35.5 g/dL LAB HEMATOLOGY METHOD 10/13/2023 12:18 PM EST [facility] RDW 13.1 11.5 - 14.5 % LAB HEMATOLOGY METHOD 10/13/2023 12:18 PM EST [facility] MPV 8.7(L) 8.8 - 12.5 fL LAB HEMATOLOGY METHOD 10/13/2023 12:18 PM EST [facility] nRBC 0.0 <=0.0 per 100 WBCs LAB HEMATOLOGY METHOD 10/13/2023 12:18 PM EST [facility] Differential Type Automated LAB HEMATOLOGY METHOD 10/13/2023 12:18 PM EST [facility] Neutrophils % 75.0 % LAB HEMATOLOGY METHOD 10/13/2023 12:18 PM EST [facility] Lymphocytes % 11.0 % LAB HEMATOLOGY METHOD 10/13/2023 12:18 PM EST [facility] Monocytes % 11.0 % LAB HEMATOLOGY METHOD 10/13/2023 12:18 PM EST [facility] Eosinophils % 2.0 % LAB HEMATOLOGY METHOD 10/13/2023 12:18 PM EST [facility] Basophils % 1.0 % LAB HEMATOLOGY METHOD 10/13/2023 12:18 PM EST [facility] Immature Granulocytes % 0.0 % LAB HEMATOLOGY METHOD 10/13/2023 12:18 PM EST [facility] Neutrophils Absolute 3.51 1.60 - 6.10 10*3/uL LAB HEMATOLOGY METHOD 10/13/2023 12:18 PM EST [facility] Lymphocytes Absolute 0.50(L) 1.20 - 3.90 10*3/uL LAB HEMATOLOGY METHOD 10/13/2023 12:18 PM EST [facility] Monocytes Absolute 0.52 0.30 - 0.90 10*3/uL LAB HEMATOLOGY METHOD 10/13/2023 12:18 PM EST [facility] Eosinophils Absolute 0.08 0.00 - 0.50 10*3/uL LAB HEMATOLOGY METHOD 10/13/2023 12:18 PM EST [facility] Basophils Absolute 0.03 0.00 - 0.10 10*3/uL LAB HEMATOLOGY METHOD 10/13/2023 12:18 PM EST [facility] Immature Granulocytes Absolute 0.01 0.00 - 0.06 10*3/uL LAB HEMATOLOGY METHOD 10/13/2023 12:18 PM EST [facility] Blood Venous blood specimen / Unknown Venipuncture / Unknown 10/13/2023 11:53 AM EST 10/13/2023 12:09 PM EST Narrative [facility] - 10/13/2023 12:18 PM EST Therapeutic decision making should be based on absolute values, rather than percentages. us Germaine Alejandro MD LAB BLOOD ORDERABLES Final R esult [facility] [address] [place] [address] * (ABNORMAL) Comprehensive Metabolic Panel, Plasma (10/13/2023 11:53 AM EST) Glucose, Plasma 89 74 - 99 mg/dL 10/13/2023 12:46 PM [facility] BUN, Plasma 28(H) 8 - 23 mg/dL 10/13/2023 12:46 PM [facility] Creatinine, Plasma 1.25 0.80 - 1.30 mg/dL 10/13/2023 12:46 PM [facility] BUN/Creatinine Ratio 22 10/13/2023 12:46 PM [facility] Sodium, Plasma 143 136 - 145 mmol/L 10/13/2023 12:46 PM [facility] Potassium, Plasma 4.2 3.7 - 4.8 mmol/L 10/13/2023 12:46 PM [facility] Chloride, Plasma 107 97 - 107 mmol/L 10/13/2023 12:46 PM [facility] CO2, Plasma 25 22 - 29 mmol/L 10/13/2023 12:46 PM [facility] Anion Gap 11 6 - 16 mmol/L 10/13/2023 12:46 PM [facility] Total Calcium, Plasma 9.5 8.9 - 10.2 mg/dL 10/13/2023 12:46 PM [facility] Total Protein 6.8 6.3 - 7.9 g/dL 10/13/2023 12:46 PM [facility] Albumin, Plasma 4.4 3.5 - 5.2 g/dL 10/13/2023 12:46 PM [facility] AST, Plasma 25 10 - 50 U/L 10/13/2023 12:46 PM [facility] Comment:Hemolyzed, result ma y be falsely increased. ALT, Plasma 22 10 - 50 U/L 10/13/2023 12:46 PM [facility] Alkaline Phosphatase, Plasma 60 40 - 115 U/L 10/13/2023 12:46 PM [facility] Total Bilirubin, Plasma 0.3 0.2 - 1.1 mg/dL 10/13/2023 12:46 PM [facility] eGFRcr 60.8 mL/min/1.7 3m*2 10/13/2023 12:46 PM [facility] Comment:Reported eGFRcr in m L/min/1.73m2 is based the CKD-EPI 2020 equation that does not use a race coefficient. Blood Venous blood specimen / Unknown Venipuncture / Unknown 10/13/2023 11:53 AM EST 10/13/2023 12:09 PM EST us Germaine Alejandro MD LAB BLOOD ORDERABLES Final R esult [facility] [address] [place] [address] documented in this encounter Visit Diagnoses Diagnosis 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 documented in this encounter Additional Health Concerns Assessment Noted Time A fall risk assessment has been complete d for the patient 08/03/2023 9:50 AM EST documented as of this encounter Care Teams Quality Lead Relationship Specialty Start Date End Date Manjit Gorman MD [address] [place] [address] PCP - General 09/23/22 Olegario Juarez MD [address] [phone] Consulting Physician Radiation Oncology 10/29/2207/05 documented as of this encounter
--- OUTSIDE RECORDS SUMMARY | 2024-07-27 06:51 | XMS_ITS | Encounter Summary ---
Author Organization [facility] Address [address] [place] [address] Care Team Providers Care Foundation Drill Operator Helper Name Role Phone Manjit Gorman MD Primary Care Provider [phone] Olegario Juarez MD Unavailable [phone] Reason for Referral * Imaging (Routine) - Closed Specialty Diagnoses / Procedures Referred By Contac t Referred To Contact Radiology Diagnoses Cancer of base of tongue (CMS/HCC) Procedures CT Soft Tissue Neck w IV Contrast Germaine Alejandro MD [address] [address] Phone: tel: fax: Referral ID Status Reason Start Date Expiration Date Visits Re quested Visits Authorized Closed 07/11/2023 01/09/2025 1 1 * Imaging (Routine) - Closed Specialty Diagnoses / Procedures Referred By Contac t Referred To Contact Radiology Diagnoses Cancer of base of tongue (CMS/HCC) Procedures CT Chest w IV Contrast Germaine Alejandro MD [address] [address] Phone: tel: fax: Referral ID Status Reason Start Date Expiration Date Visits Re quested Visits Authorized Closed 07/11/2023 01/09/2025 1 1 Reason for Visit * Imaging (Routine) - Closed Specialty Diagnoses / Procedures Referred By Contac t Referred To Contact Radiology Diagnoses Cancer of base of tongue (CMS/HCC) Procedures CT Soft Tissue Neck w IV Contrast Germaine Alejandro MD 800 [facility] [facility] [address] [place] [address] Phone: tel: fax: Referral ID Status Reason Start Date Expiration Date Visits Re quested Visits Authorized [id number] Closed 07/11/2023 01/09/2025 1 1 Encounter Details Date Type Department Care Team (Latest Contact Info) Description 10/13/2023 12:13 PM EST - 10/13/2023 11:59 PM EST Hospital Encounter [facility] [address] [place] [address] Cancer of base of tongue (CMS/HCC) Discharge Disposition: Home or Self Care Social [...] on file documented as of this encounter Discharge Instructions * Attachments The following attachments cannot be sent through Care Everywhere. * Contrast Imaging Discharge Instructions ([place]) (Thai) documented in this encounter Medications at Time [...] [facility] [address] [address] 10/17/2024 9:00 AM EST Appointment [facility] PET Scan 800 [place] [address] 10/17/2024 10:00 AM EST Appointment [facility] PET Scan 800 [place] [address] 10/17/2024 11:00 AM EST Office Visit [facility] [address] [address] Juan Pablo Cee MD [address] [facility] [address] [place] [phone] 10/17/2024 1:00 PM EST Clinical Support [facility] [address] [address] 10/17/2024 2:20 PM EST Appointment [facility] [address] [place] [address] 10/20/2024 3:30 PM EST Office Visit [facility] [address] [address] Germaine Alejandro MD 800 [facility] [address] [facility] [address] [place] [address] [place] [address] documented as of this encounter Procedures Procedure Name Priority Date/Time Associated Diagnosis Comments CT CHEST W IV CONTRAST Routine 10/13/2023 1:12 PM EST Cancer of base of tongue (CMS/HCC) CT SOFT TISSUE NECK W IV CONTRAST Routine 10/13/2023 1:12 PM EST Cancer of base of tongue (CMS/HCC) POCT CREATININE ISTAT UNSOLICITED RESULTS Routine 10/13/2023 12:48 PM EST documented in this encounter Results * CT Soft Tissue Neck w IV Contrast (10/13/2023 1:12 PM EST) Anatomical Region Laterality Modality Neck Computed Tomogra phy Impressions 10/15/2023 4:11 PM EST Stable soft tissue neck CT with contrast since the previous exam of 07/10/23 with posttreatment changes at the level of the oropharynx and into the soft tissues of the right neck. Case finalized 4:10 PM Andres. Mauricio Jacob MD This report has been electronically signed and verified by the Radiologist whose name is printed above. DD: ??10/13/2023/DT: ??10/15/2023 This report contains privileged and confidential information and is intended solely for the use of the individual or entity to which it is addressed. If you are not the intended recipient of this report, you are hereby notified that any copying, distribution, dissemination or action taken in relation to the contents of this report is strictly prohibited and may be unlawful. If you have received this report in error, please notify the sender immediately at [phone] and permanently delete the original report and destroy any copies or printouts. Narrative 10/15/2023 4:11 PM EST [facility] ? - Phone Outpatient NAME: Erick Sierra ?? DATE OF EXAM: 10/13/2023 Patient No: ??[id number] Physician: ??Javon^Germaine Date of : ??1950 Examination: Soft tissue neck CT with contrast. ?? Past Medical/Surgical History (entered by technologist): ?? 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 Technique: Axial contrast enhanced CT imaging of the neck was performed with multiplanar reformats generated and reviewed. Contrast Agent and Dose: 100 cc Omnipaque 300 Automated exposure control was used for radiation dose reduction. Total DLP 1112 mGycm Comparison: Neck CT with contrast from 07/10/23. FINDINGS: ??Some thickening of the wall of the oropharynx, greatest overall laterally on the right with stranding of fat in the submandibular space, jugulodigastric region and extending more inferiorly into the right neck consistent with posttreatment change in those areas. No gross enhancing mass identified along the patient's pharynx. ??Symmetric thickening of the epiglottis likely posttreatment related. ??Vocal folds symmetric. Small right submandibular lymph node image 234, series 4 measuring about 0.7 cm in length and 0.4 cm wide, unchanged. ??No new or enlarging cervical lymph node on this examination. Overall minimal atherosclerosis. Portions of the lung regions are aerated bilaterally. ??Thyroid gland unremarkable. ??Muscle mastication symmetric. ??Salivary glands symmetric. Moderate to marked multilevel degenerative change in the mid to lower cervical spine. Procedure Note Mauricio Jacob MD - 10/15/2023 [facility] - Phone Outpatient NAME: Erick Sierra DATE OF EXAM: 10/13/2023 Patient No: [id number] Physician: Radu Date of : 1950 Examination: Soft tissue neck CT with contrast. Past Medical/Surgical History (entered by technologist): Symptoms/Reason For Exam (entered by technologist): Head/neck cancer,assess treatment response Tech Notes (entered by technologist): Given - iohexol (OMNIPaque) 300MG/ML injection 100 mL Additional History (per [facility]): History of right base oftongue cancer status post chemoradiation therapy. Technique: Axial contrast enhanced CT imaging of the neck was performedwith multiplanar reformats generated and reviewed. Contrast Agent and Dose: 100 cc Omnipaque 300 Automated exposure control was used for radiation dose reduction. TotalDLP 1112 mGycm Comparison: Neck CT with contrast from 07/10/23. FINDINGS: Some thickening of the wall of the oropharynx, greatest overalllaterally on the right with stranding of fat in the submandibular space,jugulodigastric region and extending more inferiorly into the right neckconsistent with posttreatment change in those areas. No gross enhancing mass identified along the patient's pharynx. Symmetricthickening of the epiglottis likely posttreatment related. Vocal foldssymmetric. Small right submandibular lymph node image 234, series 4 measuring about0.7 cm in length and 0.4 cm wide, unchanged. No new or enlarging cervicallymph node on this examination. Overall minimal atherosclerosis. Portions of the lung regions are aerated bilaterally. Thyroid glandunremarkable. Muscle mastication symmetric. Salivary glands symmetric. Moderate to marked multilevel degenerative change in the mid to lowercervical spine. IMPRESSION: Stable soft tissue neck CT with contrast since the previous exam of07/10/23 with posttreatment changes at the level of the oropharynx and intothe soft tissues of the right neck. Case finalized 4:10 PM Eastern. Mauricio Jacob MD This report has been electronically signed and verified by the Radiologistwhose name is printed above. / This report contains privileged and confidential information and isintended solely for the use of the individual or entity to which it isaddressed. If you are not the intended recipient of this report, you arehereby notified that any copying, distribution, dissemination or actiontaken in relation to the contents of this report is strictly prohibitedand may be unlawful. If you have received this report in error, pleasenotify the sender immediately at [phone] and permanently delete theoriginal report and destroy any copies or printouts. us Germaine Alejandro MD IMG CT PROCEDURES Final Resu lt * CT Chest w IV Contrast (10/13/2023 1:12 PM EST) Anatomical Region Laterality Modality Chest Computed Tomogra phy Impressions 10/13/2023 3:43 PM EST No evidence of disease progression in the chest. Stable clustered nodules in the right lower lobe partial calcified left lower lobe nodule. There are nodules. CRITICAL RESULT: No. COMMUNICATION: Per this written report. Drafted by Kobe Hutchins MD on 10/13/2023 2:48 PM Final report signed by Kobe Hutchins MD on 10/13/2023 3:43 PM Narrative 10/13/2023 3:43 PM EST CLINICAL INDICATION: Metastatic disease evaluation TECHNIQUE: Multiple CT helical images were obtained from thoracic inlet through upper abdomen with administration of IV contrast. 100 ??mL of Omnipaque-300 were administered intravenously. ?? Total DLP (Dose-Length Product): 1111.70 mGy.cm. Please note: The reported value represents the total of one or more individual components during the CT acquisition on this date and at this time, and as such, the same value may appear in more than one CT report depending on the interpreting/reporting physicians. COMPARISON: February 19, 2023 FINDINGS: Mediastinum and Pleura: Coronary artery atherosclerosis. No pericardial or pleural effusion. No enlarged mediastinal or hilar lymph nodes. Lungs: Central airways are patent. No bronchial wall thickening. Multiple clustered pulmonary nodules in the superior segment of the right lower lobe are stable no nodules. Stable partially calcified left lower lobe pulmonary nodule measuring 8 mm (series 4, image 95). Upper Abdomen: No suspicious lesions in the partially visualized upper abdomen. Musculoskeletal: No aggressive osseous lesions. Degenerative changes of the lower cervical spine. Dextroscoliosis of the lower thoracic and upper lumbar spine. No axillary adenopathy. Procedure Note Kobe Hutchins MD - 10/13/2023 CLINICAL INDICATION: Metastatic disease evaluation TECHNIQUE: Multiple CT helical images were obtained from thoracic inlet through upperabdomen with administration of IV contrast. 100 mL of Omnipaque-300 wereadministered intravenously. Total DLP (Dose-Length Product): 1111.70 mGy.cm. Please note: The reportedvalue represents the total of one or more individual components during theCT acquisition on this date and at this time, and as such, the same valuemay appear in more than one CT report depending on theinterpreting/reporting physicians. COMPARISON: February 19, 2023 FINDINGS: Mediastinum and Pleura: Coronary artery atherosclerosis. No pericardial orpleural effusion. No enlarged mediastinal or hilar lymph nodes. Lungs: Central airways are patent. No bronchial wall thickening. Multipleclustered pulmonary nodules in the superior segment of the right lowerlobe are stable no nodules. Stable partially calcified left lower lobepulmonary nodule measuring 8 mm (series 4, image 95). Upper Abdomen: No suspicious lesions in the partially visualized upperabdomen. Musculoskeletal: No aggressive osseous lesions. Degenerative changes ofthe lower cervical spine. Dextroscoliosis of the lower thoracic and upperlumbar spine. No axillary adenopathy. IMPRESSION: No evidence of disease progression in the chest. Stable clustered nodules in the right lower lobe partial calcified leftlower lobe nodule. There are nodules. CRITICAL RESULT: No. COMMUNICATION: Per this written report. Drafted by Kobe Hutchins MD on 10/13/2023 2:48 PM Final report signed by Kobe Hutchins MD on 10/13/2023 3:43 PM Germaine Alejandro MD IMG CT PROCEDURES Final Resu lt * POCT creatinine (10/13/2023 12:48 PM EST) Creatinine, Point of Care 1.3 0.8 - 1.3 mg/dL 10/13/2023 12:52 PM EST [facility] POCT eGFR 58 mL/min/1. 73m*2 10/13/2023 12:52 PM EST [facility] [employer] Manager ID Hilda Arce 10/13/2023 12:52 PM EST [facility] Device ID [id number] 10/13/2023 12:52 PM EST [facility] Comment 10/13/2023 12:52 PM EST [facility] Comment:Testing performed on i-STAT at the point of care. Reported eGFRcr in mL/min/1.73m2 is based the CKD-EPI 2020 equation that does not use a race coefficient. Blood Venous blood specimen / Unknown 10/13/2023 12:48 PM EST 10/13/2023 12:52 PM EST Generic Provider Poct LAB POINT OF CARE TEST DOCKED DEVICE UNSOLICITED RESULTS Final Result [facility] [address] [place] [id number] documented in this encounter Visit Diagnoses Diagnosis 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 documented in this encounter Administered Medications Inactive Administered Medications - up to 3 most recent administrations Medication Order MAR Action Action Date Dose Rate Site iohexol (OMNIPaque) 300 MG/ML injection 100 mL 100 mL, Intravenous, Once in imaging, 1 dose, Starting on Thu10/13/23 at 1238, Until Thu10/13/23 at 1307, Routine, Imaging Protocol Orders Given 10/13/2023 1:07 PM EST 100 mL documented in this encounter Additional Health Concerns Assessment Noted Time A fall risk assessment has been complete d for the patient 08/03/2023 9:50 AM EST documented as of this encounter Care Teams Foundation Drill Operator Helper Relationship Specialty Start Date End Date Manjit Gorman MD [address] [place] [address] PCP - General 09/23/22 Olegario Juarez MD [address] [phone] Consulting Physician Radiation Oncology 10/29/2207/05 documented as of this encounter
--- OUTSIDE RECORDS SUMMARY | 2024-07-27 06:51 | XMS_ITS | Encounter Summary ---
Author Organization [facility] Address [address] [place], [place] [address] Care Team Providers Care Ammunition Assembly Ii Laborer Name Role Phone Manjit Gorman MD Primary Care Provider [phone] Olegario Juarez MD Unavailable [phone] Encounter Details Date Type Department Care Team (Latest Contact Info) Description 06/10/2024 Travel Social History Tobacco Use Types Packs/Day [...] [facility] [address] [address] 10/17/2024 9:00 AM EST Appointment [facility] PET Scan 800 [place] [address] 10/17/2024 10:00 AM EST Appointment [facility] PET Scan 800 [place] [address] 10/17/2024 11:00 AM EST Office Visit [facility] [address] [phone] Juan Pablo Cee MD [address] [facility] [address] [place] [address] 10/17/2024 1:00 PM EST Clinical Support Pav [facility] Head[facility]ck [facility] Respiratory [address] [place] [address] 10/17/2024 2:20 PM EST Appointment [facility] Radiology [address] [place] [address] 10/20/2024 3:30 PM EST Office Visit Pav [facility] Head[facility] Neck [facility] Respiratory 800 [facility], 2nd [place] [address] Germaine Alejandro MD [address] [place] [address] documented as of this encounter Visit Diagnoses Not on filedocumented in this encounter Additional Health Concerns Assessment Noted Time A fall risk assessment has been complete d for the patient 06/10/2024 11:31 AM EDT A Body Mass Index follow-up plan has been documented for the patient 06/15/2024 1:59 PM EDT documented as of this encounter Care Teams Ammunition Assembly Ii Laborer Relationship Specialty Start Date End Date Manjit Gorman MD [address] [place] [address] PCP - General 09/23/22 Olegario Juarez MD [address] [place] [phone] Consulting Physician Radiation Oncology 10/29/2207/05 documented as of this encounter
--- OUTSIDE RECORDS SUMMARY | 2024-07-27 06:51 | XMS_ITS | Encounter Summary ---
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 Social History Tobacco Use Types Packs/Day Years [...] [facility] Head, Neck & Respiratory 800 [facility], [address] [place] [address] 10/17/2024 9:00 AM EST Appointment [facility] PET Scan 800 [place] [address] 10/17/2024 10:00 AM EST Appointment [facility] PET Scan 800 [place] [address] 10/17/2024 11:00 AM EST Office Visit Pav [facility] Head[facility] Neck [facility] Respiratory 800 [facility], [address] [place] [address] Juan Pablo Cee MD [address] [facility] [address] [place] [address] 10/17/2024 1:00 PM EST Clinical Support Pav [facility] Head[facility] Neck & Respiratory 800 [facility], [address] [place] [address] 10/17/2024 2:20 PM EST Appointment [facility] Radiology [address] [place] [address] 10/20/2024 3:30 PM EST Office Visit Pav [facility] Head[facility] Neck & Respiratory [address] [address] Germaine Alejandro MD 800 [facility] [address] [place] [address] documented as of this encounter Procedures Procedure Name Priority Date/Time Associated Diagnosis Comments FREE T4, PLASMA Routine 06/27/2024 3:10 PM EDT 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 documented in this encounter Results * Free T4, Plasma (06/27/2024 3:10 PM EDT) Free T4, Plasma 0.9 0.8 - 1.7 ng/dL 06/27/2024 4:14 PM EDT [facility] Blood Venous blood specimen / Unknown Venipuncture / Unknown 06/27/2024 3:10 PM EDT 06/27/2024 3:38 PM EDT us Germaine Alejandro MD LAB BLOOD ORDERABLES Final R esult [facility] [address] [place] [address] documented in this encounter Visit Diagnoses Diagnosis 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 documented in this encounter Additional Health Concerns Assessment Noted Time A fall risk assessment has been complete d for the patient 06/27/2024 2:09 PM EDT A Body Mass Index follow-up plan has been documented for the patient 06/15/2024 1:59 PM EDT documented as of this encounter Care Teams Technical Documentation Specialist Relationship Specialty Start Date End Date Manjit Gorman MD [address] [place] [address] PCP - General 09/23/22 Olegario Juarez MD [address] [facility] [address] [place] [address] Consulting Physician Radiation Oncology 10/29/2207/05 documented as of this encounter
--- OUTSIDE RECORDS SUMMARY | 2024-07-27 06:51 | XMS_ITS | Encounter Summary ---
Author Organization [facility] Address [address] [place], [place] [address] Care Team Providers Care Fleet Service Clerk Name Role Phone Manjit Gorman MD Primary Care Provider [phone] Olegario Juarez MD Unavailable [phone] Encounter Details Date Type Department Care Team (Latest Contact Info) Description 10/16/2023 Travel Social History Tobacco Use Types Packs/Day [...] [facility] Head[facility] Neck & Respiratory [address] [address] 10/17/2024 9:00 AM EST Appointment [facility] PET Scan 800 [place] [address] 10/17/2024 10:00 AM EST Appointment [facility] PET Scan 800 [place] [address] 10/17/2024 11:00 AM EST Office Visit Pav [facility] Head[facility] Neck [facility] Respiratory [address] [phone] Juan Pablo Cee MD [address] [facility] [address] [place] [address] 10/17/2024 1:00 PM EST Clinical Support Pav [facility] Head[facility] Neck [facility] Respiratory [address] , [address] [place] [address] 10/17/2024 2:20 PM EST Appointment [facility] Radiology [address] [place] [address] 10/20/2024 3:30 PM EST Office Visit Pav [facility] Head[facility] Neck & Respiratory 800 [facility], 2nd [place] [address] Germaine Alejandro MD [address] [place] [address] documented as of this encounter Visit Diagnoses Not on filedocumented in this encounter Additional Health Concerns Assessment Noted Time A fall risk assessment has been complete d for the patient 10/16/2023 9:42 AM EST documented as of this encounter Care Teams Fleet Service Clerk Relationship Specialty Start Date End Date Manjit Gorman MD [address] [place], [place] [id number] PCP - General 09/23/22 Olegario Juarez MD [address] [place] [phone] Consulting Physician Radiation Oncology 10/29/2207/05 documented as of this encounter
--- OUTSIDE RECORDS SUMMARY | 2024-07-27 06:51 | XMS_ITS | Encounter Summary ---
Author Organization [facility] Address [address] [place], [place] [address] Care Team Providers Care Line Installer Repairer Name Role Phone Manjit Gorman MD Primary Care Provider [phone] Olegario Juarez MD Unavailable [phone] Encounter Details Date Type Department Care Team (Latest Contact Info) Description 12/10/2023 Travel Social History Tobacco Use Types Packs/Day [...] [facility] Head[facility] Neck [facility] Respiratory [address] [address] 10/17/2024 9:00 AM EST Appointment [facility] PET Scan 800 [place] [address] 10/17/2024 10:00 AM EST Appointment [facility] PET Scan 800 [place] [address] 10/17/2024 11:00 AM EST Office Visit [facility] Head[facility] Neck [facility] Respiratory [address] [phone] Juan Pablo Cee MD [address] [facility] [address] [place] [address] 10/17/2024 1:00 PM EST Clinical Support [facility] Head[facility] Neck [facility] Respiratory [address] , [address] [place] [address] 10/17/2024 2:20 PM EST Appointment [facility] Radiology [address] [place] [address] 10/20/2024 3:30 PM EST Office Visit Pav [facility] Head[facility] Neck & Respiratory 800 [facility], 2nd [place] [address] Germaine Alejandro MD [address] [place] [address] documented as of this encounter Visit Diagnoses Not on filedocumented in this encounter Additional Health Concerns Assessment Noted Time A fall risk assessment has been complete d for the patient 12/10/2023 9:11 AM EDT documented as of this encounter Care Teams Line Installer Repairer Relationship Specialty Start Date End Date Manjit Gorman MD [address] [place], [place] [phone] PCP - General 09/23/22 Olegario Juarez MD [address] [place] [address] Consulting Physician Radiation Oncology 10/29/2207/05 documented as of this encounter
--- OUTSIDE RECORDS SUMMARY | 2024-07-27 06:51 | XMS_ITS | Encounter Summary ---
Author Organization [facility] Address [address] [id number] Care Team Providers Care Financial Administrative Assistant Name Role Phone Manjit Gorman MD Primary Care Provider [phone] Olegario Juarez MD Unavailable [phone] Encounter Details Date Type Department Care Team ([facility] Contact Info) Description 06/14/2024 Orders Only Pav [facility] Head[facility] Neck & Respiratory 800 [facility], [address]nd [place] [address] Juan Pablo Cee MD [address] [facility] [address] [place] [address] 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) Social History Tobacco Use Types [...] Pav [facility] Head[facility] Neck & Respiratory 800 [facility], [address]nd [place] [address] 10/17/2024 9:00 AM EST Appointment [facility] PET Scan 800 [place] [address] 10/17/2024 10:00 AM EST Appointment [facility] PET Scan 800 [place] [address] 10/17/2024 11:00 AM EST Office Visit Pav [facility] Head[facility] Neck & Respiratory 800 [facility], [address] [place] [address] Juan Pablo Cee MD [address] [facility] [address] [place] [address] 10/17/2024 1:00 PM EST Clinical Support Pav [facility] Head[facility] Neck & Respiratory 800 [facility], [address] [place] [address] 10/17/2024 2:20 PM EST Appointment [facility] G Radiology [address] [place] [address] 10/20/2024 3:30 PM EST Office Visit Pav [facility] Head[facility] Neck & Respiratory 800 [facility], [address] [place] [phone] Germaine Alejandro MD 800 [facility] [address] [place] [address] documented as of this encounter Visit Diagnoses Diagnosis Cancer of base of tongue (CMS/HCC)- Primary Malignant neoplasm of base of tongue documented in this encounter Additional Health Concerns Assessment Noted Time A fall risk assessment has been complete d for the patient 06/10/2024 11:31 AM EDT A Body Mass Index follow-up plan has been documented for the patient 06/15/2024 1:59 PM EDT documented as of this encounter Care Teams Financial Administrative Assistant Relationship Specialty Start Date End Date Manjit Gorman MD [address] [place] [address] PCP - General 09/23/22 Olegario Juarez MD 800 [facility] [address] [place] [address] Consulting Physician Radiation Oncology 10/29/2207/05 documented as of this encounter
--- OUTSIDE RECORDS SUMMARY | 2024-07-27 06:51 | XMS_ITS | Encounter Summary ---
Author Organization [facility] Address [address] [place], [place] [address] Care Team Providers Care Lead Informatica Developer Name Role Phone Manjit Gorman MD Primary Care Provider [phone] Olegario Juarez MD Unavailable [phone] Encounter Details Date Type Department Care Team (Latest Contact Info) Description 06/22/2024 Travel Social History Tobacco Use Types Packs/Day [...] [facility] Head[facility] Neck [facility] Respiratory [address] [address] 10/17/2024 9:00 AM EST Appointment [facility] PET Scan 800 [place] [address] 10/17/2024 10:00 AM EST Appointment [facility] PET Scan 800 [place] [address] 10/17/2024 11:00 AM EST Office Visit [facility] Head[facility] Neck [facility] Respiratory [address] [phone] Juan Pablo Cee MD [address] [facility] [address] [place] [address] 10/17/2024 1:00 PM EST Clinical Support Pav [facility] Head[facility] Neck & Respiratory [address] [place] [address] 10/17/2024 2:20 PM EST Appointment [facility] Radiology [address] [place] [address] 10/20/2024 3:30 PM EST Office Visit Pav [facility] Head[facility] Neck & Respiratory 800 [facility], [address]nd [place] [address] Germaine Alejandro MD [address] [place] [address] documented as of this encounter Visit Diagnoses Not on filedocumented in this encounter Additional Health Concerns Assessment Noted Time A fall risk assessment has been complete d for the patient 06/10/2024 11:31 AM EDT A Body Mass Index follow-up plan has been documented for the patient 06/15/2024 1:59 PM EDT documented as of this encounter Care Teams Lead Informatica Developer Relationship Specialty Start Date End Date Manjit Gorman MD [address] [place] [address] PCP - General 09/23/22 Olegario Juarez MD [address] [place] [address] Consulting Physician Radiation Oncology 10/29/2207/05 documented as of this encounter
--- OUTSIDE RECORDS SUMMARY | 2024-07-27 06:51 | XMS_ITS | Encounter Summary ---
Author Organization [facility] Address [address] [place], [place] [address] Care Team Providers Care Equipment Inspector Name Role Phone Manjit Gorman MD Primary Care Provider [phone] Olegario Juarez MD Unavailable [phone] Encounter Details Date Type Department Care Team (Latest Contact Info) Description 10/12/2023 Travel Social History Tobacco Use Types Packs/Day [...] [facility] Head[facility] Neck [facility] Respiratory [address] [address] 10/17/2024 9:00 AM EST Appointment [facility] PET Scan 800 [place] [address] 10/17/2024 10:00 AM EST Appointment [facility] PET Scan 800 [place] [address] 10/17/2024 11:00 AM EST Office Visit Pav [facility] Head[facility] Neck [facility] Respiratory [address] [phone] Juan Pablo Cee MD [address] [facility] [address] [place] [address] 10/17/2024 1:00 PM EST Clinical Support Pav [facility] Head[facility] Neck & Respiratory [address] , [address] [place] [address] 10/17/2024 2:20 PM EST Appointment [facility] Radiology [address] [place] [address] 10/20/2024 3:30 PM EST Office Visit Pav [facility] Head[facility] Neck & Respiratory [address] [facility], 2nd [place] [address] Germaine Alejandro MD [address] [place] [address] documented as of this encounter Visit Diagnoses Not on filedocumented in this encounter Additional Health Concerns Assessment Noted Time A fall risk assessment has been complete d for the patient 08/03/2023 9:50 AM EST documented as of this encounter Care Teams Equipment Inspector Relationship Specialty Start Date End Date Manjit Gorman MD [address] [place], [place] [phone] PCP - General 09/23/22 Olegario Juarez MD [address] [place] [address] Consulting Physician Radiation Oncology 10/29/2207/05 documented as of this encounter
--- OUTSIDE RECORDS SUMMARY | 2024-07-27 06:51 | XMS_ITS | Encounter Summary ---
Author Organization [facility] Address [address] [place] [address] Care Team Providers Care Sat Math Tutor Name Role Phone Manjit Gorman MD Primary Care Provider [phone] Olegario Juarez MD Unavailable [phone] Reason for Referral * Imaging (Routine) - Pending Review Specialty Diagnoses / Procedures Referred By Contac t Referred To Contact Radiology Diagnoses Cancer of base of tongue (CMS/HCC) Procedures CT Soft Tissue Neck w IV Contrast Beryl Garrett APRN, DNP [address] [address] Phone: tel: fax: Referral ID Status Reason Start Date Expiration Date V isits Requested Visits Authorized [id number] Pending Review 10/16/2023 04/16/2025 1 1 * Imaging (Routine) - Pending Review Specialty Diagnoses / Procedures Referred By Contac t Referred To Contact Radiology Diagnoses Cancer of base of tongue (CMS/HCC) Procedures CT Soft Tissue Neck w IV Contrast Beryl Garrett APRN, DNP [address] [address] Phone: tel: fax: Referral ID Status Reason Start Date Expiration Date V isits Requested Visits Authorized [id number] Pending Review 10/16/2023 04/16/2025 1 1 Reason for Visit * Reason Comments Follow-up Encounter Details Date Type Department Care Team (Latest Contact Info) Description 10/16/2023 9:21 AM EST - 10/16/2023 11:59 PM EST Hospital Encounter [facility] [address] [place] [address] Eduardo Johnston MD [address] [place] [address] 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) Discharge Disposition: Still a Patient Social History [...] Sign Reading Time Taken Comments Blood Pressure 129/58 10/16/2023 9:39 AM EST Pulse 65 10/16/2023 9:39 AM EST Temperature 36.7 ??C (98.1 ??F) 10/16/2023 9:39 AM ES T Respiratory Rate 16 10/16/2023 9:39 AM EST Oxygen Saturation 100% 10/16/2023 9:39 AM EST Inhaled Oxygen Concentration - - Weight 78.9 kg (173 lb 15.1 oz) 10/16/2023 9:39 AM EST Height 188 cm (6' 2 ) 10/16/2023 9:39 AM EST Body Mass Index 22.33 10/16/2023 9:39 AM EST documented in this encounter Medications at Time [...] as of this encounter Miscellaneous Notes * Progress Notes - Beryl Garrett, STRINGER UP SOLDERING MACHINE, DNP - 10/16/2023 9:30 AM EST [facility] RADIATION MEDICINE RADIATION ONCOLOGY FOLLOW-UP NOTE PATIENT NAME: Erick Sierra : 1950 DATE OF SERVICE: 10/16/2023 Erick Sierra is a 73 y.o. male who we are seeing as a follow up for DIAGNOSIS AND Cancer Staging Cancer of base of tongue (CMS/HCC) Staging form: Pharynx - HPV-Mediated Oropharynx, AJCC 8th Edition - Clinical stage from 10/29/2022: Stage I (cT2, cN1, cM0, p16+) - Signed by Germaine Alejandro MD on11/10/2022 Histopathologic type: Squamous cell carcinoma, NOS Stage prefix: Initial diagnosis He was treated with the course of Radiation Therapy Details of Radiation Treatment: 7000 cGy in 35 fractions to right oropharynx and right lymph node level II-III, and 5600 cGy in 35 fractions to right lymph node level IV and left lymph node using a VMAT plan with 6X energy. Completed 12/30/2022. KARNOFSKY PERFORMANCE STATUS: 80 HISTORY OF PRESENT ILLNESS: Erick Sierra is a 72 y.o. 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 PET/CT 10/21/22 demonstrated a hypermetabolic RIGHT BOT mass and hypermetabolic RIGHT level IIA and IIB nodes. Patient completed radiation treatment as described above. Patent was last seen in clinic on 04/09/23 and presents to clinic today for a 10 month f/u post radiotherapy. INTERVAL HISTORY: Denies recent hospitalization or illnesses. 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 Denies pain/difficulty with swallowing or mouth ulcers. No coughing or SOA. Gaining weight. Saw Dr Alejandro recently with reported normal scans. REVIEW OF SYSTEMS: Review of Systems Constitutional: Negative for appetite change, fatigue, fever and unexpected weight change. Taste improved slightly HENT: Positive for hearing loss (improved with hearing aides). Negative for lump/mass, mouth sores,sore throat and trouble swallowing (chronic dry mouth; drinks with food or adds sauces to food). Respiratory: Negative. Cardiovascular: Negative. Gastrointestinal: Negative. Genitourinary: Negative. Musculoskeletal: Negative. Skin: Negative. Neurological: Negative. Hematological: Negative. Psychiatric/Behavioral: Negative. MEDICATIONS: Current Outpatient Medications Medication Sig amLODIPine-benazepril (Lotrel) 2.5-10 MG capsule Take 1 capsule by mouth every night. BLACK ELDERBERRY PO Take 1 tablet by mouth every night. multivitamin (Theragran-M) tablet Take 1 tablet by mouth every night. tadalafil (Cialis) 5 MG tablet TAKE 1 OR 2 TABLETS BY MOUTH DAILY NEEDED FOR ED No current facility-administered medications for this visit. ALLERGIES: No Known Allergies SOCIAL HISTORY: Changes noted in the HPI if applicable PHYSICAL EXAM: Visit Vitals BP 129/58 Pulse 65 Temp 36.7 ??C (98.1 ??F) Ht 1.88 m (6' 2 ) Wt 78.9 kg (173 lb 15.1 oz) SpO2 100% BMI 22.33 kg/m?? Tobacco Use: Low Risk (08/03/2023) Patient History Smoking Tobacco Use: Never Smokeless Tobacco Use: Never Passive Exposure: Not on file Physical Exam Vitals reviewed. Constitutional: General: He is not in acute distress. Appearance: Normal appearance. He is not ill-appearing or toxic-appearing. HENT: Mouth/Throat: Mouth: Mucous membranes are dry. No oral lesions. Dentition: No gum lesions. Pharynx: Oropharynx is clear. No oropharyngeal exudate. Comments: Scattered white papillae on tongue. Neck: Trachea: No tracheal deviation. Cardiovascular: Rate and Rhythm: Normal rate. Pulmonary: Effort: Pulmonary effort is normal. No respiratory distress. Abdominal: General: There is no distension. Musculoskeletal: General: No swelling. Cervical back: No edema, rigidity (baseline- decrease ROM to left reports present prior to RT) or tenderness. Lymphadenopathy: Cervical: No cervical adenopathy. Skin: General: Skin is warm and dry. Findings: No rash. Neurological: General: No focal deficit present. Mental Status: He is alert and oriented to person, place, and time. Psychiatric: Mood and Affect: Mood normal. PATHOLOGY AND LABORATORY STUDIES: All pertinent lab and pathology results were reviewed. Final Diagnosis (no units) Date/Time Value 10/09/2022 1559 A. 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 Comment (no units) Date/Time Value 09/15/2022 1112 Review of outside IHC shows diffuse strong expression (>90%) for p16 in groups of metastatic squamous cells in the lymph node (controls are appropriately reactive). IMAGING: The following radiologic report was reviewed. 10/13/23 CT SOFT TISSUE NECK W IV CONTRAST authorized by: Germaine Alejandro MD Narrative & Impression [facility] - Phone Outpatient NAME: Erick Sierra DATE OF EXAM: 10/13/2023 Patient No: [id number] Physician: Allen^Germaine Date of : 1950 Examination: Soft tissue neck CT with contrast. Past Medical/Surgical History (entered by technologist): Symptoms/Reason For Exam (entered by technologist): Head/neck cancer, assess treatment response Tech Notes (entered [...] submandibular space, jugulodigastric region and extending more inferiorlyinto the right neck consistent with posttreatment change in those areas. No gross enhancing mass identified along the patient's pharynx. Symmetric thickening of the epiglottis likely posttreatment related. Vocal folds symmetric. Small right submandibular lymph node image 234, series 4 measuring about 0.7 cm in length and 0.4 cm wide, unchanged. No new or enlarging cervical lymph node on this examination. Overall minimal atherosclerosis. Portions of the lung regions are aerated bilaterally. Thyroid gland unremarkable. Muscle mastication symmetric. Salivary glands symmetric. Moderate to marked multilevel degenerative change in the mid to lower cervical spine. IMPRESSION: Stable soft tissue neck CT with contrast since the previous exam of 07/10/23 with posttreatment changes at the level of the oropharynx and into the soft tissues of the right neck. Case finalized 4:10 PM Era. Mauricio Jacob MD This report has been electronically signed and verified by the Radiologist whose name is printed above. / This report [...] error, please notify the sender immediately at [phone] and permanently delete theoriginal report and destroy any copies or printouts. 10/13/23 CT CHEST W IV CONTRAST authorized by: Germaine Alejandro MD Narrative & Impression CLINICAL INDICATION: Metastatic disease evaluation TECHNIQUE: Multiple CT helical images were obtained from thoracic inlet through upper abdomen with administration of IV contrast. 100 mL of Omnipaque-300 were administered intravenously. Total DLP (Dose-Length Product): 1111.70 mGy.cm. Please note: The reported value represents the total of one or more individual components during the CT acquisition on this date and at this time, andas such, the same value may appear in [...] lobe are stable no nodules. Stable partially calcifiedleft lower lobe pulmonary nodule measuring 8 mm (series 4, image 95). Upper Abdomen: No suspicious lesions in the partially visualized upper abdomen. Musculoskeletal: No aggressive osseous lesions. Degenerative changes of the lower cervical spine. Dextroscoliosis of the lower thoracic and upper lumbar spine. No axillary adenopathy. IMPRESSION: No evidence of disease progression in the chest. Stable clustered nodules in the right lower lobe partial calcified left lower lobe nodule. There are nodules. CRITICAL RESULT: No. COMMUNICATION: Per this written report. Drafted by Kobe Hutchins MD on 10/13/2023 2:48 PM Final report signed by Kobe Hutchins MD on 10/13/2023 3:43 PM ASSESSMENT AND PLAN: Erick Sierra is a 72 y.o. 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 PET/CT 10/21/22 demonstrated a hypermetabolic RIGHT BOT mass and hypermetabolic RIGHT level IIA and IIB nodes. Patient completed radiation treatment as described above. Presents to clinic today for 10-month follow up visit. Will alternate f/u's with Med Oncology scheduled 02/2024. Stable, post-radiation presentation today. Continue neck exercises Discussed need to keep mouth moist with water po and chewing up food completely. RTC RAD MED in [address] Johnston with scans (BUT WITH ALTERNATING VISITS WITH MARILYNN AND ALLEN in the meantime). Patient told to schedule these appts or if seeing RAD MED solely then RTC in 4mos. Orders Placed This Encounter Procedures CT Soft Tissue Neck w IV Contrast CT Soft Tissue Neck w IV Contrast Future Appointments Date Time Provider Department Center 12/10/2023 9:15 AM Juan Pablo Cee MD [facility] 02/16/2024 11:45 AM [facility] RN [facility] 02/16/2024 1:[address] [facility] 02/18/2024 9:50 AM Germaine Alejandro MD [facility] All of his questions were answered to his satisfaction. Mr. Sierra has been given a printout regarding future appointments and the plan of care. He has our contact information should he have questionsor concerns. A total of 40 minutes were spent preparing, performing an examination, counseling, educating the patient, and care coordination with more than 20 minutes of that time used for counseling the patient and coordination of care. Thank you for allowing us to take part in the care of Erick Sierra. Please do not hesitate to contact our clinic if you have any questions or concerns. Beryl Garrett DNP, APRN, DATA ENTRY SUPERVISOR-C JEANNETTE Radiation Medicine [facility] Department of Radiation Oncology Cosigned by Eduardo Johnston MD at 10/17/2023 9:13 AM EST Associated attestation - Eduardo Johnston MD - 10/17/2023 9:13 AM EST I attest to being involved in providing substantive part of the medical decision making in patient care. documented in this encounter Plan of Treatment Upcoming Encounters Date Type Department Care Team (Late st Contact Info) Description 10/17/2024 8:00 AM EST Clinical Support [facility] Head[facility] Neck & Respiratory [address] [address] 10/17/2024 9:00 AM EST Appointment [facility] PET Scan 800 [place] [address] 10/17/2024 10:00 AM EST Appointment [facility] PET Scan 800 [place] [address] 10/17/2024 11:00 AM EST Office Visit [facility] Head[facility] Neck & Respiratory [address] [address] Juan Pablo Cee MD [address] [place] [address] 10/17/2024 1:00 PM EST Clinical Support [facility] Head[facility] Neck & Respiratory [address] [address] 10/17/2024 2:20 PM EST Appointment [facility] Radiology [address] [place] [address] 10/20/2024 3:30 PM EST Office Visit [facility] Head[facility] Neck & Respiratory [address] [phone] Germaine Alejandro MD [address] [place] [address] Scheduled Orders Name Type Priority Associated Diagnoses Orde r Schedule CT Soft Tissue Neck w IV Contrast Imaging Routine Cancer of base of tongue (CMS/HCC) Expected: 04/15/2024, Expires: 04/17/2025 CT Soft Tissue Neck w IV Contrast Imaging Routine Cancer of base of tongue (CMS/HCC) Expected: 04/15/2024, Expires: 04/17/2025 documented as of this encounter Visit Diagnoses Diagnosis Cancer of base of tongue (CMS/HCC)- Primary Malignant neoplasm of base of tongue documented in this encounter Additional Health Concerns Assessment Noted Time A fall risk assessment has been complete d for the patient 10/16/2023 9:42 AM EST documented as of this encounter Care Teams Sat Math Tutor Relationship Specialty Start Date End Date Manjit Gorman MD [address] [place], [place] [id number] PCP - General 09/23/22 Olegario Juarez MD [address] [place] [address] Consulting Physician Radiation Oncology 10/29/2207/05 documented as of this encounter
--- OUTSIDE RECORDS SUMMARY | 2024-07-27 06:51 | XMS_ITS | Encounter Summary ---
Author Organization [facility] Address [address] [id number] Care Team Providers Care Human Resources Compliance Manager Name Role Phone Manjit Gorman MD Primary Care Provider [phone] Encounter Details Date Type Department Care Team ([facility] Contact Info) Description 07/25/2024 Orders Only [facility] Head, Neck & Respiratory 800 [facility] [address] [place] [phone] Juan Pablo Cee MD [address] [facility] [address] [place] [phone] Social History Tobacco Use Types Packs/Day Years [...] Upcoming Encounters Date Type Department Care Team ([facility] Contact Info) Description 10/17/2024 8:00 AM EST Clinical Support [facility] Head[facility] Neck & Respiratory 800 [facility], [address]nd [place] [address] 10/17/2024 9:00 AM EST Appointment [facility] PET Scan 800 [place] [address] 10/17/2024 10:00 AM EST Appointment [facility] PET Scan 800 [place] [address] 10/17/2024 11:00 AM EST Office Visit [facility] Head, Neck & Respiratory 800 [facility], [address] [place] [address] Juan Pablo Cee MD [address] [facility] [address] [place] [address] 10/17/2024 1:00 PM EST Clinical Support [facility] Head, Neck & Respiratory 800 [facility] [address] [place] [address] 10/17/2024 2:20 PM EST Appointment [facility] Radiology [address] [place] [address] 10/20/2024 3:30 PM EST Office Visit [facility] Head[facility] Neck & Respiratory [address] [phone] Germaine Alejandro MD 800 [facility] [address] [facility] [address] [place] [address] documented as of this encounter Visit Diagnoses Not on filedocumented in this encounter Additional Health Concerns Assessment Noted Time A fall risk assessment has been complete d for the patient 06/27/2024 2:09 PM EDT A Body Mass Index follow-up plan has been documented for the patient 06/15/2024 1:59 PM EDT documented as of this encounter Care Teams Human Resources Compliance Manager Relationship Specialty Start Date End Date Manjit Gorman MD [address] [place] [address] PCP - General 09/23/22 documented as of this encounter
--- OUTSIDE RECORDS SUMMARY | 2024-07-27 06:51 | XMS_ITS | Encounter Summary ---
Author Organization [facility] Address [address] [place], [place] [address] Care Team Providers Care Coordinator Of Placement Name Role Phone Manjit Gorman MD Primary Care Provider [phone] Olegario Juarez MD Unavailable [phone] Encounter Details Date Type Department Care Team ([facility] Contact Info) Description 11/17/2023 Orders Only [facility] Head, Neck & Respiratory 800 [facility] [address] [place] [address] Germaine Alejandro MD 800 [facility] [address] [place] [address] Social History Tobacco Use Types Packs/Day Years [...] [facility] Head, Neck & Respiratory 800 [facility], [address] [place] [address] 10/17/2024 9:00 AM EST Appointment [facility] PET Scan 800 [place] [address] 10/17/2024 10:00 AM EST Appointment [facility] PET Scan 800 [place] [address] 10/17/2024 11:00 AM EST Office Visit [facility] Head, Neck & Respiratory 800 [facility], [address] [place] [address] Juan Pablo Cee MD [address] [facility] [address] [place] [address] 10/17/2024 1:00 PM EST Clinical Support [facility] Head[facility] Neck & Respiratory [address] [phone] 10/17/2024 2:20 PM EST Appointment [facility] Radiology [address] [place] [address] 10/20/2024 3:30 PM EST Office Visit [facility] Head, Neck & Respiratory 800 [facility], [address] [place] [phone] Germaine Alejandro MD 800 [facility] [address] [place] [address] documented as of this encounter Visit Diagnoses Not on filedocumented in this encounter Additional Health Concerns Assessment Noted Time A fall risk assessment has been complete d for the patient 10/16/2023 9:42 AM EST documented as of this encounter Care Teams Coordinator Of Placement Relationship Specialty Start Date End Date Manjit Gorman MD [address] [place] [address] PCP - General 09/23/22 Olegario Juarez MD 800 [facility] [address] [place] [phone] Consulting Physician Radiation Oncology 10/29/2207/05 documented as of this encounter
--- OUTSIDE RECORDS SUMMARY | 2024-07-27 06:52 | XMS_ITS | Encounter Summary ---
Author Organization [facility] Address [address] [place], [place] [phone] Care Team Providers Care Bin Filler Name Role Phone Manjit Gorman MD Primary Care Provider [phone] Olegario Juarez MD Unavailable [phone] Encounter Details Date Type Department Care Team (Latest Contact Info) Description 04/09/2023 Travel Social History Tobacco Use Types Packs/Day [...] [facility] Head[facility] Neck & Respiratory [address] [address] 10/17/2024 9:00 AM EST Appointment [facility] PET Scan 800 [place] [address] 10/17/2024 10:00 AM EST Appointment [facility] PET Scan 800 [place] [address] 10/17/2024 11:00 AM EST Office Visit [facility] Head[facility] Neck & Respiratory [address] [phone] Juan Pablo Cee MD [address] [facility] [address] [place] [address] 10/17/2024 1:00 PM EST Clinical Support [facility] Head[facility] Neck & Respiratory [address] [place] [address] 10/17/2024 2:20 PM EST Appointment [facility] Radiology [address] [place] [address] 10/20/2024 3:30 PM EST Office Visit [facility] Head[facility] Neck & Respiratory 800 [facility], 2nd [place] [address] Germaine Alejandro MD [address] [place] [address] documented as of this encounter Visit Diagnoses Not on filedocumented in this encounter Additional Health Concerns Assessment Noted Time A fall risk assessment has been complete d for the patient 04/09/2023 8:56 AM EDT documented as of this encounter Care Teams Bin Filler Relationship Specialty Start Date End Date Manjit Gorman MD [address] [place], [place] [phone] PCP - General 09/23/22 Olegario Juarez MD [address] [place] [address] Consulting Physician Radiation Oncology 10/29/2207/05 documented as of this encounter
--- OUTSIDE RECORDS SUMMARY | 2024-07-27 06:52 | XMS_ITS | Encounter Summary ---
Author Organization [facility] Address [address] [id number] Care Team Providers Care Fourdrinier Tender Name Role Phone Manjit Gorman MD Primary Care Provider [phone] Olegario Juarez MD Unavailable [phone] Reason for Visit * Reason Comments Follow-up Encounter Details Date Type Department Care Team (Latest Contact Info) Description 04/09/2023 8:45 AM EDT - 04/09/2023 11:59 PM EDT Hospital Encounter [facility] [id number] [place] [address] Bossman Moscoso MD [address] [place] [address] Cancer of base of tongue [...] Sign Reading Time Taken Comments Blood Pressure 127/73 04/09/2023 8:55 AM EDT Pulse 70 04/09/2023 8:55 AM EDT Temperature - - Respiratory Rate 14 04/09/2023 8:55 AM EDT Oxygen Saturation 100% 04/09/2023 8:55 AM EDT Inhaled Oxygen Concentration - - Weight 77.9 kg (171 lb 11.8 oz) 04/09/2023 8:55 AM EDT Height - - Body Mass Index 22.05 03/31/2023 2:29 PM EDT documented in this encounter Medications at [...] encounter Miscellaneous Notes * Progress Notes - Matthew Johnson MD - 04/09/2023 9:00 AM EDT [facility] RADIATION MEDICINE RADIATION ONCOLOGY FOLLOW-UP NOTE PATIENT NAME: Erick Sierra : 1950 DATE OF SERVICE: 04/09/2023 DIAGNOSIS AND Cancer Staging Cancer of base of tongue (CMS/HCC) Staging form: Pharynx - HPV-Mediated Oropharynx, AJCC 8th Edition - Clinical stage from 10/29/2022: Stage I (cT2, cN1, cM0, p16+) - Signed by Germaine Alejandro MD on11/10/2022 Histopathologic type: Squamous cell carcinoma, NOS Stage prefix: Initial diagnosis PRIOR RADIATION THERAPY: 7000 cGy in 35 fractions to right oropharynx and right lymph node level II-III, and 5600 cGy in 35 fractions to right lymph node level IV and left lymph node using a VMAT plan with 6X energy. Completed 12/30/2022. KARNOFSKY PERFORMANCE STATUS: 80 - Normal activity with effort; some signs or symptoms of disease. HISTORY OF PRESENT ILLNESS: Erick Sierra is a 72 y.o. male who we are seeing as a follow up today regarding above diagnosis Mr. Sierra initially noticed RIGHT-sided throat pain in March 2022, followed by swelling in his neck.He was initially assessed by the dentistry team that didn't find any change that justify his pain. The symptoms continued and months after he noticed a right cervical mass. He was then referred to [facility] that started investigation as showed below: 08/12/2022. CT Neck: right-sided cervical lymphadenopathy and asymmetry in the right base of tongue/oropharynx. In 09/15/2022 he underwent excisional lymph node biopsy that revealed metastatic squamous cell carcinoma, P16 diffusely positive. On 10/09/22, Mr. Sierra went to the OR with Dr. Cee for DL with biopsy of a RIGHT base of tongue lesion. Pathology was confirmed as p16+ SqCC. Taken together with the excisional LN biopsy, Mr. Sierra's disease was staged [id number]. CT Chest 10/21/22 showed no metastatic disease, and PET/CT 10/21/22 demonstrated a hypermetabolic RIGHT BOT mass and hypermetabolic RIGHT level IIA (2cm) and IIB (0.7cm) nodes. Patient completed chemoradiation to the right oropharynx and cervical lymph levels as described above completed on 12/30/2022. He now returns for a routine three month follow up visit. INTERVAL HISTORY: Mr. Sierra is generally doing well today. He reports an aching pain near the angle of the mandible of 4/10 intensity since Thursday. He states it's well- controlled with ibuprofen, but it interrupts his sleep when he hasn't taken the ibuprofen. Otherwise, Mr. Sierra is tolerating a full diet and is managing his grade 1 xerostomia with copious water intake. His taste is gradually improving, and he denies any dysphagia or odynophagia. Mr. Sierra reports decreased hearing in his RIGHT ear following chemoradiation and has an audiology appointment on 05/13/23. REVIEW OF SYSTEMS: A 14 point review of systems was conducted with pertinent positives and negatives above in the HPI. MEDICATIONS: Reviewed ALLERGIES: Reviewed SOCIAL HISTORY: Changes noted in the HPI if applicable PHYSICAL EXAM: Vital Signs: Visit Vitals BP 127/73 Pulse 70 Resp 14 Wt 77.9 kg (171 lb 11.8 oz) SpO2 100% BMI 22.05 kg/m?? Smoking Status Never BSA 2.02 m?? Physical Exam Constitutional: Appearance: Normal appearance. HENT: Head: Normocephalic and atraumatic. Right Ear: External ear normal. Left Ear: External ear normal. Nose: Nose normal. Mouth/Throat: Pharynx: Oropharynx is clear. Comments: No oral mucositis or thrush noted. Post-radiation mucosal changes noted. Good dentition Eyes: General: No scleral icterus. Conjunctiva/sclera: Conjunctivae normal. Neck: Comments: Post radiation changes of the neck and oropharynx. Cardiovascular: Rate and Rhythm: Normal rate. Pulmonary: Effort: Pulmonary effort is normal. No respiratory distress. Abdominal: General: Abdomen is flat. There is no distension. Musculoskeletal: General: Normal range of motion. Cervical back: Normal range of motion. No rigidity. Lymphadenopathy: Cervical: No cervical adenopathy. Skin: General: Skin is warm and dry. Neurological: General: No focal deficit present. Mental Status: He is alert and oriented to person, place, and time. Psychiatric: Mood and Affect: Mood normal. Behavior: Behavior normal. PATHOLOGY AND LABORATORY STUDIES: All pertinent [...] are appropriately reactive). IMAGING: The following radiologic studies were independently reviewed by the staff attending and myself. PET/CT FDG SKULL BASE TO MID THIGH 03/31/2023 FINDINGS: Technical quality: Diagnostic. Measurements: Unless otherwise specified, all SUVs refer to maximum value in the target (mSUV). Mean SUV liver: 2.4. Head and Neck: Symmetric FDG uptake within the brain. Decreased metabolic activity and soft tissue thickening at the right tongue base, margins of the soft tissue thickening measures approximately 17 x 10 mm with a maximum SUV of 4.0 (series 3, 74), previously 23 x 18 mm with Max SUV of 16.3. Resolution of FDG avid right cervical level 2A lymphadenopathy, node now measures 6 mm in short axis (series 3, 77). No new FDG avid cervical adenopathy. No suspicious thyroid lesions. Chest: Decreased avidity of clustered peribronchial pulmonary nodules at the medial right lung base with Max SUV of 1.7 (series 4, image 72), previously 2.4. Nodules appear similar in size and distribution relative to prior PET/CT and most consistent with infection/inflammatory changes. No mediastinal, hilar, or axillary adenopathy. Normal caliber of the thoracic aorta. Coronary artery calcifications. No pericardial or pleural effusion. Abdomen and Pelvis: No suspicious hypermetabolic activity in the abdomen or pelvis. Solid Abdominal Organs: Mildly FDG avid focus along the anterioinferior aspect of the liver with max SUV of 3, without CT correlate. This may represent misregistration from adjacent bowel. Otherwise unremarkable noncontrast appearance of the liver. Normal gallbladder. No hydronephrosis. Splenic granulomata. No suspicious adrenal masses. No suspicious pancreatic findings. GI Tract/Mesentery/Peritoneum: Physiologic bowel activity, without suspicious focal FDG uptake. Thelarge and small bowel appear normal in caliber. No suspicious peritoneal/mesenteric findings. Lymph Nodes: No pathologically enlarged or hypermetabolic lymph nodes in the abdomen or pelvis.. Pelvic Viscera: Mild prostatomegaly with surrounding brachytherapy lead seeds are present. Vasculature: Normal caliber of the abdominal aorta. Free Fluid: No ascites or drainable fluid collection. Skeleton and Soft Tissues: No suspicious hypermetabolic activity in the visualized osseous structures. No aggressive osseous lesions. Degenerative changes throughout the thoracic and lumbar spine is present. Right concave thoracolumbar scoliosis. No suspicious soft tissue foci. IMPRESSION: 1. Near-complete response to therapy with markedly decreasing in FDG activity and size of the rightbase tongue mass with small residual FDG uptake and thickening. 2. Resolution of FDG avid right cervical lymphadenopathy. 3. Slight decrease in FDG avidity of right lung cluster peribronchial nodularity is consistent withpost inflammation/infection. ASSESSMENT AND PLAN: Erick Sierra is a 72 y.o. 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 PET/CT 10/21/22 demonstrated a hypermetabolic RIGHT BOT mass and hypermetabolic RIGHT level IIA and IIB nodes. Patient completed radiation treatment as described above. Patient developed mucositis which was treated with mouthwash #1, had copious oral secretions which was managed with Mucinex and dry desquamation of skin which was managed with Aquaphor. Mr. Sierra is doing well clinically, and his exam and imaging are consistent with good tumor response to radiation. We counseled Mr. Sierra that his pain may be consistent with post-radiation soft tissue changes that should gradually resolve on its own. If it persists, then we will empirically treat for oral thrush; we counseled Mr. Sierra to call us if this is the case. Mr. Sierra has surveillance imaging on 07/10/23, followed by an office visit with Dr. Alejandro on 07/13/23. We will also see him in clinic for follow-up in 3 months on 07/13/23. All of his questions were answered to his satisfaction. Mr. Sierra has been given a printout regarding future appointments and the plan of care. He has our contact information should he have questionsor concerns. A total of 30 minutes were spent in follow up with more than 20 minutes of that time used for counseling the patient and coordination of care. Thank you for allowing us to take part in the care of Erick Sierra. Please do not hesitate to contact our clinic if you have any questions or concerns. Matthew Johnson II, MD, PGY-4 Resident Physician, Radiation Oncology [facility] Pager: [phone] Cosigned by Bossman Moscoso MD at 04/09/2023 11:09 AM EDT Associated attestation - Bossman Moscoso MD - 04/09/2023 11:09 AM EDT I saw and evaluated the patient with the resident/fellow. I discussed the case with the resident/fellow and agree with the findings and plan as documented. documented in this encounter Plan of Treatment Upcoming Encounters Date Type Department Care Team ([facility] st Contact Info) Description 10/17/2024 8:00 AM EST Clinical Support [facility] Head[facility] Neck & Respiratory [address] [facility] [place] [address] 10/17/2024 9:00 AM EST Appointment [facility] PET Scan [address] [place] [address] 10/17/2024 10:00 AM EST Appointment [facility] PET Scan [address] [place] [phone] 10/17/2024 11:00 AM EST Office Visit [facility] Head[facility] Neck & Respiratory [address] [facility] [place] [phone] Juan Pablo Cee MD [address] [facility] [address] [place] [phone] 10/17/2024 1:00 PM EST Clinical Support [facility] Head[facility] Neck & Respiratory [address] [facility] [place] [phone] 10/17/2024 2:20 PM EST Appointment [facility] Radiology [address] [place] [phone] 10/20/2024 3:30 PM EST Office Visit [facility] Head[facility] Neck [facility] Respiratory [address] [facility] [place] [phone] Germaine Alejandro MD [address] [facility] [address] [place] [phone] documented as of this encounter Visit Diagnoses Diagnosis Cancer of base of tongue (CMS/HCC)- Primary Malignant neoplasm of base of tongue documented in this encounter Additional Health Concerns Assessment Noted Time A fall risk assessment has been complete d for the patient 04/09/2023 8:56 AM EDT documented as of this encounter Care Teams Fourdrinier Tender Relationship Specialty Start Date End Date Manjit Gorman MD [address] [place], [place] [phone] PCP - General 09/23/22 Olegario Juarez MD [address] [facility] [address] [place] [phone] Consulting Physician Radiation Oncology 10/29/2207/05 documented as of this encounter
--- OUTSIDE RECORDS SUMMARY | 2024-07-27 06:52 | XMS_ITS | Encounter Summary ---
Author Organization [facility] Address [address] [place] [address] Care Team Providers Care Guide Cruise Name Role Phone Manjit Gorman MD Primary Care Provider [phone] Olegario Juarez MD Unavailable [phone] Reason for Referral * Imaging (Routine) - Closed Specialty Diagnoses / Procedures Referred By Contac t Referred To Contact Radiology Diagnoses Cancer of base of tongue (CMS/HCC) Procedures CT Soft Tissue Neck w IV Contrast Germaine Alejandro MD [address] [address] Phone: tel: fax: Referral ID Status Reason Start Date Expiration Date Visits Re quested Visits Authorized [id number] Closed 12/24/2022 06/24/2024 1 1 * Imaging (Routine) - Closed Specialty Diagnoses / Procedures Referred By Contac t Referred To Contact Radiology Diagnoses Cancer of base of tongue (CMS/HCC) Procedures CT Abdomen Pelvis w IV Contrast Germaine Alejandro MD [address] [address] Phone: tel: fax: Referral ID Status Reason Start Date Expiration Date Visits Re quested Visits Authorized [id number] Closed 12/24/2022 06/24/2024 1 1 * Imaging (Routine) - Closed Specialty Diagnoses / Procedures Referred By Terri del rosario Referred To Contact Radiology Diagnoses Cancer of base of tongue (CMS/HCC) Procedures CT Chest w IV Contrast Germaine Alejandro MD [address] Junior [address] [address] Phone: tel: fax: Referral ID Status Reason Start Date Expiration Date Visits Re quested Visits Authorized [id number] Closed 12/24/2022 06/24/2024 1 1 Reason for Visit * Imaging (Routine) - Closed Specialty Diagnoses / Procedures Referred By Terri del rosario Referred To Contact Radiology Diagnoses Cancer of base of tongue (CMS/HCC) Procedures CT Abdomen Pelvis w IV Contrast Germaine Alejandro MD [address]oth[address] Junior [address] [address] Phone: tel: fax: Referral ID Status Reason Start Date Expiration Date Visits Re quested Visits Authorized [id number] Closed 12/24/2022 06/24/2024 1 1 Encounter Details Date Type Department Care Team (Latest Contact Info) Description 02/19/2023 1:19 PM EDT - 02/19/2023 11:59 PM EDT Hospital Encounter [facility] [address] [place] [address] Cancer of base of tongue (CMS/HCC) Discharge [...] Everywhere. * Contrast Imaging Discharge Instructions ([place]) (Sami) documented in this encounter Medications at Time of Discharge amLODIPine-benaz epril (Lotrel) 2.5-10 MG capsule Take 1 capsule by mouth every night. BLACK ELDERBERRY PO Take 1 tablet by mouth every night. multivitamin (Theragran-M) tablet Take 1 tablet by mouth every night. tadalafil (Cialis) 5 MG tablet TAKE 1 OR 2 TABLETS BY MOUTH DAILY NEEDED FOR ED 04/15/2022 dexamethasone (Decadron) 4 MG tabletIndication s:Cancer of base of tongue (CMS/HCC) Take 2 tablets (8 mg total) by mouth 1 (one) time each day. Take 2 tablets (8 mg) by mouth once daily for 3 days after each dose of CISplatin 18 tablet 11/10/2022 3 gabapentin (Neurontin) 600 MG tablet Take 0.5 tablets (300 mg total) by mouth 3 (three) times a day. 45 tablet 2 11/10/2022 3 ondansetron (Zofran) 8 MG tabletIndication s:Cancer of base of tongue (CMS/HCC) Take 1 tablet (8 mg total) by mouth every 8 (eight) hours if needed for nausea or vomiting. 30 tablet 2 11/10/2022 3 prochlorperazine (Compazine) 10 MG tabletIndication s:Cancer of base of tongue (CMS/HCC) Take 1 tablet (10 mg total) by mouth every 6 (six) hours if needed for nausea or vomiting. 30 tablet 5 11/10/2022 3 terbinafine (LamISIL) 250 MG tablet TAKE 1 TABLET BY MOUTH FOR THE FIRST 10 DAYS OF EACH MONTH FOR 6 MONTHS 09/09/2022 3 documented as of this encounter Plan of Treatment Upcoming Encounters Date Type Department Care Team (Late st Contact Info) Description 10/17/2024 8:00 AM EST Clinical Support [facility] 800 [facility], 2nd [place] [address] 10/17/2024 9:00 AM EST Appointment [facility] PET Scan [address] [place] [address] 10/17/2024 10:00 AM EST Appointment [facility] PET Scan [address] [place] [address] 10/17/2024 11:00 AM EST Office Visit [facility] [address] [phone] Juan Pablo Cee MD [address] [facility] [address] [place] [address] 10/17/2024 1:00 PM EST Clinical Support [facility] [address] [phone] 10/17/2024 2:20 PM EST Appointment [facility] [address] [place] [address] 10/20/2024 3:30 PM EST Office Visit [facility] [address] [phone] Germaine Alejandro MD 800 [facility] [address] [place] [phone] documented as of this encounter Procedures Procedure Name Priority Date/Time Associated Diagnosis Comments CT ABDOMEN PELVIS W IV CONTRAST Routine 02/19/2023 2:58 PM EDT Cancer of base of tongue (CMS/HCC) CT CHEST W IV CONTRAST Routine 02/19/2023 2:58 PM EDT Cancer of base of tongue (CMS/HCC) CT SOFT TISSUE NECK W IV CONTRAST Routine 02/19/2023 2:58 PM EDT Cancer of base of tongue (CMS/HCC) POCT CREATININE ISTAT UNSOLICITED RESULTS Routine 02/19/2023 1:52 PM EDT documented in this encounter Results * CT Soft Tissue Neck w IV Contrast (02/19/2023 2:58 PM EDT) Anatomical Region Laterality Modality Neck Computed Tomogra phy Impressions 02/20/2023 1:59 PM EDT Expected evolution of post treatment changes, with reduction of size of right tongue base/tonsillar mass, and of cervical adenopathy. No new mass or adenopathy. Miguel Nguyen M.D. This report has been electronically signed and verified by the Radiologist whose name is printed above. DD: ??02/19/2023/DT: ??02/20/2023 This report contains privileged and confidential information [...] error, please notify the sender immediately at [phone] and permanently delete the original report and destroy any copies or printouts. Narrative 02/20/2023 1:59 PM EDT [facility] ? - Phone Outpatient NAME: Erick Sierra ?? DATE OF EXAM: 02/19/2023 Patient No: ??[id number] Physician: ??Javon^Germaine Date of : ??1950 Past Medical/Surgical History (entered by technologist): ?? Symptoms/Reason For Exam (entered by technologist): ??Cancer of base of tongue Tech Notes (entered by technologist): iohexol (OMNIPaque) 300 MG/ML injection 100 mL Additional History (per [facility]): Per the electronic medical record: Base of tongue squamous cell carcinoma, [id number]. Radiation therapy, chemotherapy. Automated exposure control was used for radiation dose reduction. Total DLP 1731 mGy-cm Technique: Axial CT examination of the neck with intravenous contrast. Multiplanar reformats were generated. Comparison: CT neck 12-Aug-22 FINDINGS: Decreased size of right tongue base/tonsillar mass. Decreased right level II adenopathy, previously 1.3 cm, now 0.8 cm, and previously 1.6 cm, now 1.1 cm. No other neck mass or significant adenopathy. Minimal diffuse oropharyngeal soft tissue swelling, appearing since the previous examination. Thyroid and salivary glands appear normal. Larynx appears normal. Visualized thorax appears normal. No suspicious bone lesions. Minimal degenerative changes cervical spine. Small mastoid effusions. Minimal-moderate mucosal thickening left ethmoid sinus. Paranasal sinuses, mastoid air cells, and tympanic cavities are otherwise normal in pneumatization and development. Minimal-moderate degenerative changes temporomandibular joints. Visualized brain and orbits appear normal. Major cervical vascular structures appear normal. Procedure Note Miguel Nguyen MD - 02/20/2023 [facility] - Phone Outpatient NAME: Erick Sierra DATE OF EXAM: 02/19/2023 Patient No: [id number] Physician: Radu Date of : 1950 Past Medical/Surgical History (entered by technologist): Symptoms/Reason For Exam (entered by technologist): Cancer of base oftongue Tech Notes (entered by technologist): iohexol (OMNIPaque) 300 MG/MLinjection 100 mL Additional History (per [facility]): Per the electronic medicalrecord: Base of tongue squamous cell carcinoma, [id number]. Radiationtherapy, chemotherapy. Automated exposure control was used for radiation dose reduction. TotalDLP 1731 mGy-cm Technique: Axial CT examination of the neck with intravenous contrast.Multiplanar reformats were generated. Comparison: CT neck 12-Aug-22 FINDINGS: Decreased size of right tongue base/tonsillar mass. Decreased right level II adenopathy, previously 1.3 cm, now 0.8 cm, andpreviously 1.6 cm, now 1.1 cm. No other neck mass or significant adenopathy. Minimal diffuseoropharyngeal soft tissue swelling, appearing since the previousexamination. Thyroid and salivary glands appear normal. Larynx appearsnormal. Visualized thorax appears normal. No suspicious bone lesions.Minimal degenerative changes cervical spine. Small mastoid effusions.Minimal-moderate mucosal thickening left ethmoid sinus. Paranasal sinuses,mastoid air cells, and tympanic cavities are otherwise normal inpneumatization and development. Minimal-moderate degenerative changestemporomandibular joints. Visualized brain and orbits appear normal. Majorcervical vascular structures appear normal. IMPRESSION: Expected evolution of post treatment changes, with reduction of size ofright tongue base/tonsillar mass, and of cervical adenopathy. No new massor adenopathy. Miguel Nguyen M.D. This report has been electronically signed and [...] in error, pleasenotify the sender immediately at [phone] and permanently delete theoriginal report and destroy any copies or printouts. us Germaine Alejandro MD IMG CT PROCEDURES Final Resu lt * CT Abdomen Pelvis w IV Contrast (02/19/2023 2:58 PM EDT) Anatomical Region Laterality Modality Abdomen, Pelvis Computed Tomogra phy Impressions 02/19/2023 3:48 PM EDT No evidence of neoplastic disease progression the chest, abdomen and pelvis. CRITICAL RESULT: No. COMMUNICATION: Per this written report. Drafted by Veto Bautista MD on 02/19/2023 3:39 PM Final report signed by Veto Bautista MD on 02/19/2023 3:48 PM Narrative 02/19/2023 3:48 PM EDT CLINICAL INDICATION: Non-small cell lung cancer, metastatic, assess treatment response TECHNIQUE: Multiple CT helical images were obtained from thoracic inlet through upper abdomen with administration of IV contrast. 100 ??mL of Omnipaque-300 were administered intravenously. ?? Total DLP (Dose-Length Product): 1731.25 mGy.cm. Please note: The reported value represents the total of one or more individual components during the CT acquisition on this date and at this time, and as such, the same value may appear in more than one CT report depending on the interpreting/reporting physicians. COMPARISON: 10/21/2022 FINDINGS: Mediastinum and Pleura: No enlarged lymph nodes. No pleural or pericardial effusions. Small sliding-type hiatal hernia. Lungs: Calcified granuloma within left lung base. Cluster of nodules within superior segment of medial right lung base is similar to comparison. No new nodules are appreciated. Abdomen and Pelvis: Hepatic steatosis. No suspicious renal lesion. No substantial change of subcentimeter low attenuation focus in left hepatic lobe. Pancreas, adrenals and both kidneys appear unremarkable. Subcentimeter low density of the right kidney, likely cyst. Small and large bowel loops appear unremarkable without evidence of obstruction or thickening. No pelvic or abdominal lymphadenopathy. No suspicious peritoneal/mesenteric nodules. Enlarged prostate gland. Musculoskeletal: No suspicious lytic or sclerotic lesion. ??Dextroscoliosis with ??multilevel degenerative changes Procedure Note Veto Bautista MD - 02/19/2023 CLINICAL INDICATION: Non-small cell lung cancer, metastatic, assess treatment response TECHNIQUE: Multiple CT helical images were obtained from thoracic inlet through upperabdomen with administration of IV contrast. 100 mL of Omnipaque-300 wereadministered intravenously. Total DLP (Dose-Length Product): 1731.25 mGy.cm. Please note: The reportedvalue represents the total of one or more individual components during theCT acquisition on this date and at this time, and as such, the same valuemay appear in more than one CT report depending on theinterpreting/reporting physicians. COMPARISON: 10/21/2022 FINDINGS: Mediastinum and Pleura: No enlarged lymph nodes. No pleural or pericardialeffusions. Small sliding-type hiatal hernia. Lungs: Calcified granuloma within left lung base. Cluster of noduleswithin superior segment of medial right lung base is similar tocomparison. No new nodules are appreciated. Abdomen and Pelvis: Hepatic steatosis. No suspicious renal lesion. Nosubstantial change of subcentimeter low attenuation focus in left hepaticlobe. Pancreas, adrenals and both kidneys appear unremarkable.Subcentimeter low density of the right kidney, likely cyst. Small andlarge bowel loops appear unremarkable without evidence of obstruction orthickening. No pelvic or abdominal lymphadenopathy. No suspiciousperitoneal/mesenteric nodules. Enlarged prostate gland. Musculoskeletal: No suspicious lytic or sclerotic lesion. Dextroscoliosiswith multilevel degenerative changes IMPRESSION: No evidence of neoplastic disease progression the chest, abdomen andpelvis. CRITICAL RESULT: No. COMMUNICATION: Per this written report. Drafted by Veto Bautista MD on 02/19/2023 3:39 PM Final report signed by Veto Bautista MD on 02/19/2023 3:48 PM us Germaine Alejandro MD IMG CT PROCEDURES Final Resu lt * CT Chest w IV Contrast (02/19/2023 2:58 PM EDT) Anatomical Region Laterality Modality Chest Computed Tomogra phy Impressions 02/19/2023 3:48 PM EDT No evidence of neoplastic disease progression the chest, abdomen and pelvis. CRITICAL RESULT: No. COMMUNICATION: Per this written report. Drafted by Veto Bautista MD on 02/19/2023 3:39 PM Final report signed by Veto Bautista MD on 02/19/2023 3:48 PM Narrative 02/19/2023 3:48 PM EDT CLINICAL INDICATION: Non-small cell lung cancer, metastatic, assess treatment response TECHNIQUE: Multiple CT helical images were obtained from thoracic inlet through upper abdomen with administration of IV contrast. 100 ??mL of Omnipaque-300 were administered intravenously. ?? Total DLP (Dose-Length Product): 1731.25 mGy.cm. Please note: The reported value represents the total of one or more individual components during the CT acquisition on this date and at this time, and as such, the same value may appear in more than one CT report depending on the interpreting/reporting physicians. COMPARISON: 10/21/2022 FINDINGS: Mediastinum and Pleura: No enlarged lymph nodes. No pleural or pericardial effusions. Small sliding-type hiatal hernia. Lungs: Calcified granuloma within left lung base. Cluster of nodules within superior segment of medial right lung base is similar to comparison. No new nodules are appreciated. Abdomen and Pelvis: Hepatic steatosis. No suspicious renal lesion. No substantial change of subcentimeter low attenuation focus in left hepatic lobe. Pancreas, adrenals and both kidneys appear unremarkable. Subcentimeter low density of the right kidney, likely cyst. Small and large bowel loops appear unremarkable without evidence of obstruction or thickening. No pelvic or abdominal lymphadenopathy. No suspicious peritoneal/mesenteric nodules. Enlarged prostate gland. Musculoskeletal: No suspicious lytic or sclerotic lesion. ??Dextroscoliosis with ??multilevel degenerative changes Procedure Note Veto Bautista MD - 02/19/2023 CLINICAL INDICATION: Non-small cell lung cancer, metastatic, assess treatment response TECHNIQUE: Multiple CT helical images were obtained from thoracic inlet through upperabdomen with administration of IV contrast. 100 mL of Omnipaque-300 wereadministered intravenously. Total DLP (Dose-Length Product): 1731.25 mGy.cm. Please note: The reportedvalue represents the total of one or more individual components during theCT acquisition on this date and at this time, and as such, the same valuemay appear in more than one CT report depending on theinterpreting/reporting physicians. COMPARISON: 10/21/2022 FINDINGS: Mediastinum and Pleura: No enlarged lymph nodes. No pleural or pericardialeffusions. Small sliding-type hiatal hernia. Lungs: Calcified granuloma within left lung base. Cluster of noduleswithin superior segment of medial right lung base is similar tocomparison. No new nodules are appreciated. Abdomen and Pelvis: Hepatic steatosis. No suspicious renal lesion. Nosubstantial change of subcentimeter low attenuation focus in left hepaticlobe. Pancreas, adrenals and both kidneys appear unremarkable.Subcentimeter low density of the right kidney, likely cyst. Small andlarge bowel loops appear unremarkable without evidence of obstruction orthickening. No pelvic or abdominal lymphadenopathy. No suspiciousperitoneal/mesenteric nodules. Enlarged prostate gland. Musculoskeletal: No suspicious lytic or sclerotic lesion. Dextroscoliosiswith multilevel degenerative changes IMPRESSION: No evidence of neoplastic disease progression the chest, abdomen andpelvis. CRITICAL RESULT: No. COMMUNICATION: Per this written report. Drafted by Veto Bautista MD on 02/19/2023 3:39 PM Final report signed by Veto Bautista MD on 02/19/2023 3:48 PM us Germaine Alejandro MD IM CT PROCEDURES Final Resu lt * POCT creatinine (02/19/2023 1:52 PM EDT) Creatinine, Point of Care 1.2 0.8 - 1.3 mg/dL 02/19/2023 1:55 PM EDT [facility] POCT eGFR 64 mL/min/1. 73m*2 02/19/2023 1:55 PM EDT [facility] Dog Behaviorist ID Cristian Rubio 02/19/2023 1:55 PM EDT [facility] Device ID [id number] 02/19/2023 1:55 PM EDT [facility] Comment 02/19/2023 1:55 PM EDT [facility] Comment: Testing performed on i-STAT at the point of care. Reported eGFRcr in mL/min/1.73m2 is based the CKD-EPI 2021 equation that does not use a race coefficient. Effective 04/02/22 our laboratory changed the eGFR calculation to the CKD-EPI 2021 equation from the previously reported eGFR, based on the MDRD equation. For comparisons between the two equations, please see laboratory website: [email or web address] Blood Venous blood specimen / Unknown 02/19/2023 1:52 PM EDT 02/19/2023 1:55 PM EDT us Generic Provider Poct LAB POINT OF CARE TEST DOCKED DEVICE UNSOLICITED RESULTS Final Result Performing Organization Address City/State/[facility] Co de Phone Number [facility]ALTH[facility]ARE [facility] [address] [place], [place] [phone] documented in this encounter Visit Diagnoses Diagnosis 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 documented in this encounter Administered Medications Inactive Administered Medications - up to 3 most recent administrations Medication Order MAR Action Action Date Dose Rate Site iohexol (OMNIPaque) 300 MG/ML injection 100 mL 100 mL, Intravenous, Once in imaging, 1 dose, Starting on Ev 02/19/23 at 1337, Until Ev 02/19/23 at 1446, Routine, Imaging Protocol Orders Given 02/19/2023 2:46 PM EDT 100 mL iohexol (OMNIPaque) 9 MG/ML oral contrast 500 mL 500 mL, Oral, Once in imaging, 1 dose, Starting on Ev 02/19/23 at 1337, Until Ev 02/19/23 at 1446, Routine, Imaging Protocol Orders Given 02/19/2023 2:46 PM EDT 500 mL documented in this encounter Additional Health Concerns Assessment Noted Time A fall risk assessment has been complete d for the patient 02/04/2023 3:49 PM EDT documented as of this encounter Care Teams Guide Cruise Relationship Specialty Start Date End Date Manjit Gorman MD [address] [place], [place] [phone] PCP - General 09/23/22 Olegario Juarez MD [address] [address] Consulting Physician Radiation Oncology 10/29/2207/05 documented as of this encounter
--- OUTSIDE RECORDS SUMMARY | 2024-07-27 06:52 | XMS_ITS | Encounter Summary ---
Author Organization [facility] Address [address] [place], [place] [address] Care Team Providers Care Aircraft Maintenance Engineer Name Role Phone Manjit Gorman MD Primary Care Provider [phone] Olegario Juarez MD Unavailable [phone] Encounter Details Date Type Department Care Team (Latest Contact Info) Description 04/04/2023 Travel Social History Tobacco Use Types Packs/Day [...] [facility] [address] [address] 10/17/2024 9:00 AM EST Appointment [facility] PET Scan [address] [place] [address] 10/17/2024 10:00 AM EST Appointment [facility] PET Scan [address] [place] [address] 10/17/2024 11:00 AM EST Office Visit [facility] [address] [phone] Juan Pablo Cee MD [address] [facility] [address] [place] [address] 10/17/2024 1:00 PM EST Clinical Support [facility] [address] [place] [address] 10/17/2024 2:20 PM EST Appointment [facility] [address] [place] [address] 10/20/2024 3:30 PM EST Office Visit [facility] 800 [facility], [address]nd [place] [address] Germaine Alejandro MD [address] [place] [phone] documented as of this encounter Visit Diagnoses Not on filedocumented in this encounter Additional Health Concerns Assessment Noted Time A fall risk assessment has been complete d for the patient 03/31/2023 2:30 PM EDT documented as of this encounter Care Teams Aircraft Maintenance Engineer Relationship Specialty Start Date End Date Manjit Gorman MD [address] [place], [place] [phone] PCP - General 09/23/22 Olegario Juarez MD [address] [place] [phone] Consulting Physician Radiation Oncology 10/29/2207/05 documented as of this encounter
--- OUTSIDE RECORDS SUMMARY | 2024-07-27 06:52 | XMS_ITS | Encounter Summary ---
Author Organization [facility] Address [address] [place] [address] Care Team Providers Care Anesthesia Attending Name Role Phone Manjit Gorman MD Primary Care Provider [phone] Olegario Juarez MD Unavailable [phone] Encounter Details Date Type Department Care Team ([facility] Contact Info) Description 06/15/2023 Telephone [facility] AUDIOLOGY [address], [address] [place] [address] Pcp, No [address] [place] [address] Social History Tobacco Use Types Packs/Day Years [...] [facility] Res[facility] 800 [facility], [address]nd [place] [address] 10/17/2024 9:00 AM EST Appointment [facility] PET Scan [address] [place] [address] 10/17/2024 10:00 AM EST Appointment [facility] PET Scan [address] [place] [address] 10/17/2024 11:00 AM EST Office Visit [facility] 800 [facility], [address] [place] [phone] Juan Pablo Cee MD [address] [facility] [address] [place] [address] 10/17/2024 1:00 PM EST Clinical Support [facility] 800 [facility], [address] [place] [address] 10/17/2024 2:20 PM EST Appointment [facility] [address] [place] [phone] 10/20/2024 3:30 PM EST Office Visit [facility] Res[facility] 800 [facility], [address] [place] [phone] Germaine Alejandro MD 800 [facility] [address] [place] [phone] documented as of this encounter Visit Diagnoses Not on filedocumented in this encounter Additional Health Concerns Assessment Noted Time A fall risk assessment has been complete d for the patient 06/01/2023 9:30 AM EDT documented as of this encounter Care Teams Anesthesia Attending Relationship Specialty Start Date End Date Manjit Gorman MD [address] [place], [place] [phone] PCP - General 09/23/22 Olegario Juarez MD 800 [facility] [address] [place] [phone] Consulting Physician Radiation Oncology 10/29/2207/05 documented as of this encounter
--- OUTSIDE RECORDS SUMMARY | 2024-07-27 06:52 | XMS_ITS | Encounter Summary ---
Author Organization [facility] Address [address] [id number] Care Team Providers Care Bi Manager Name Role Phone Manjit Gorman MD Primary Care Provider [phone] Olegario Juarez MD Unavailable [phone] Reason for Referral * Imaging (Routine) - Closed Specialty Diagnoses / Procedures Referred By Terri del rosario Referred To Contact Radiology Diagnoses Cancer of base of tongue (CMS/HCC) Procedures PET/CT FDG Skull Base To Mid Thigh Juan Pablo Cee MD [address] [address] Phone: tel: fax: Referral ID Status Reason Start Date Expiration Date Visits Re quested Visits Authorized [id number] Closed 01/20/2023 07/21/2024 2 2 Reason for Visit * Imaging (Routine) - Closed Specialty Diagnoses / Procedures Referred By Terri del rosario Referred To Contact Radiology Diagnoses Cancer of base of tongue (CMS/HCC) Procedures PET/CT FDG Skull Base To Mid Thigh Juan Pablo Cee MD [address] [address] Phone: tel: fax: Referral ID Status Reason Start Date Expiration Date Visits Re quested Visits Authorized [id number] Closed 01/20/2023 07/21/2024 2 2 Encounter Details Date Type Department Care Team (Latest Contact Info) Description 03/31/2023 11:25 AM EDT - 03/31/2023 11:35 AM EDT Hospital Encounter [facility] Radiology [address] [facility], [place] [address] Cancer of base of tongue (CMS/HCC) Discharge [...] - Inhaled Oxygen Concentration - - Weight 74.8 kg (165 lb) 03/31/2023 11:54 AM EDT Height - - Body Mass Index 21.18 02/26/2023 2:38 PM EDT documented in this encounter Medications at Time of Discharge amLODIPine-benaze pril (Lotrel) 2.5-10 MG capsule Take 1 capsule by mouth every night. BLACK ELDERBERRY PO Take 1 tablet by mouth every night. multivitamin (Theragran-M) tablet Take 1 tablet by mouth every night. tadalafil (Cialis) 5 MG tablet TAKE 1 OR 2 TABLETS BY MOUTH DAILY NEEDED FOR ED 04/15/2022 terbinafine (LamISIL) 250 MG tablet TAKE 1 TABLET BY MOUTH FOR THE FIRST 10 DAYS OF EACH MONTH FOR 6 MONTHS 09/09/2022 04/09/2023 documented as of this encounter Plan of Treatment Upcoming Encounters Date Type Department Care Team (Late Contact Info) Description 10/17/2024 8:00 AM EST Clinical Support [facility] Head[facility] Neck [facility] Res[facility] [address] [facility], [address]nd [place] [address] 10/17/2024 9:00 AM EST Appointment [facility] PET Scan [address] [place] [address] 10/17/2024 10:00 AM EST Appointment [facility] PET Scan [address] [place] [address] 10/17/2024 11:00 AM EST Office Visit [facility] Head[facility] Neck [facility] Respiratory [address] [facility], [address] [place] [address] Juan Pablo Cee MD [address] [facility] [address] [place] [address] 10/17/2024 1:00 PM EST Clinical Support [facility] Res[facility] [address] [address] 10/17/2024 2:20 PM EST Appointment [facility] Radiology [address] [place] [address] 10/20/2024 3:30 PM EST Office Visit [facility] Ne[facility] Res[facility] [address] [address] Germaine Alejandro MD [address] [facility] [address] [place] [phone] documented as of this encounter Procedures Procedure Name Priority Date/Time Associated Diagnosis Comments PET/CT FDG SKULL BASE TO MID THIGH Routine 03/31/2023 2:00 PM EDT Cancer of base of tongue (CMS/HCC) documented in this encounter Results * PET/CT FDG Skull Base To Mid Thigh (03/31/2023 2:00 PM EDT) Anatomical Region Laterality Modality Nuclear Medicine Impressions 03/31/2023 4:25 PM EDT 1. Near-complete response to therapy with markedly decreasing in FDG activity and size of the right base tongue mass with small residual FDG uptake and thickening. 2. Resolution of FDG avid right cervical lymphadenopathy. 3. Slight decrease in FDG avidity of right lung cluster peribronchial nodularity is consistent with post inflammation/infection. CRITICAL RESULT: No. COMMUNICATION: Per this written report. By electronically signing this report, I, the attending physician, attest that I have personally reviewed the images/data for the above examination(s) and agree with the final edited report. 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 Previous history of prostate cancer.. TECHNIQUE: Preparation: Last oral intake (except water) on 03/31/2023 at 12:30 AM. Diabetic: No. Blood glucose at time of FDG administration: 94 mg/dL. Radiopharmaceutical: 13.10 mCi of F-18 FDG administered intravenously at the left forearm at 12:04 PM. Incubation interval: 53 minutes. Oral contrast: Not applicable. Positioning: Arms raised for torso scan, by sides for neck scan. PET/CT scanner: Siemens Biograph 40 mCT. PET/CT acquisition: Ffxaxn-dr-xsf-thighs, plus magnification (zoomed) neck. Standardized uptake value (SUV): Corrected for body weight only. CT: Low-dose, yvk-vrpliz-focm, without intravenous contrast. TOTAL DLP (Dose Length Product): 658.05 mGy.cm mGy cm. COMPARISON/CORRELATION: FDG PET/CT 10/21/2022. CT soft tissue neck, chest, abdomen and pelvis 02/19/2023. FINDINGS: Technical quality: Diagnostic. Measurements: Unless otherwise [...] bowel activity, without suspicious focal FDG uptake. The large and small bowel appear normal in caliber. [...] thoracolumbar scoliosis. No suspicious soft tissue foci. Procedure Note Patricia Ribera MD - 03/31/2023 CLINICAL INDICATION: Squamous cell carcinoma of the right tongue base with metastatic diseaseto the right neck status post chemoradiation completed on 12/30/2022.Previous history of prostate cancer.. TECHNIQUE: Preparation: Last oral intake (except water) on 03/31/2023 at 12:30 AM. Diabetic: No. Blood glucose at time of FDG administration: 94 mg/dL. Radiopharmaceutical: 13.10 mCi of F-18 FDG administered intravenously atthe left forearm at 12:04 PM. Incubation interval: 53 minutes. Oral contrast: Not applicable. Positioning: Arms raised for torso scan, by sides for neck scan. PET/CT scanner: Siemens Biograph 40 mCT. PET/CT acquisition: Oapygk-dd-plt-thighs, plus magnification (zoomed)neck. Standardized uptake value (SUV): Corrected for body weight only. CT: Low-dose, sng-eqocbl-hcpa, without intravenous contrast. TOTAL DLP (Dose Length Product): 658.05 mGy.cm mGy cm. COMPARISON/CORRELATION: FDG PET/CT 10/21/2022. CT soft tissue neck, chest, abdomen and pelvis02/19/2023. FINDINGS: Technical quality: Diagnostic. Measurements: Unless otherwise specified, all SUVs refer to maximum valuein the target (mSUV). Mean SUV liver: 2.4. Head and Neck: Symmetric FDG uptake within the brain. Decreased metabolic activity and soft tissue thickening at the righttongue base, margins of the soft tissue thickening measures [id number] x 10 mm with a maximum SUV of 4.0 (series 3, 74), previously 23 x 18 mmwith Max SUV of 16.3. Resolution of FDG avid right cervical level 2A lymphadenopathy, node nowmeasures 6 mm in short axis (series 3, 77). No new FDG avid cervical adenopathy. No suspicious thyroid lesions. Chest: Decreased avidity of clustered peribronchial pulmonary nodules at themedial right lung base with Max SUV of 1.7 (series 4, image 72),previously 2.4. Nodules appear similar in size and distribution relativeto prior PET/CT and most consistent with infection/inflammatory changes. No mediastinal, hilar, or axillary adenopathy. Normal caliber of the thoracic aorta. Coronary artery calcifications. Nopericardial or pleural effusion. Abdomen and Pelvis: No suspicious hypermetabolic activity in the abdomen or pelvis. Solid Abdominal Organs: Mildly FDG avid focus along the anterioinferioraspect of the liver with max SUV of 3, without CT correlate. This mayrepresent misregistration from adjacent bowel. Otherwise unremarkable noncontrast appearance of the liver. Normalgallbladder. No hydronephrosis. Splenic granulomata. No suspicious adrenalmasses. No suspicious pancreatic findings. GI Tract/Mesentery/Peritoneum: Physiologic bowel activity, withoutsuspicious focal FDG uptake. The large and small bowel appear normal incaliber. No suspicious peritoneal/mesenteric findings. Lymph Nodes: No pathologically enlarged or hypermetabolic lymph nodes inthe abdomen or pelvis.. Pelvic Viscera: Mild prostatomegaly with surrounding brachytherapy leadseeds are present. Vasculature: Normal caliber of the abdominal aorta. Free Fluid: No ascites or drainable fluid collection. Skeleton and Soft Tissues: No suspicious hypermetabolic activity in the visualized osseousstructures. No aggressive osseous lesions. Degenerative changes throughout thethoracic and lumbar spine is present. Right concave thoracolumbarscoliosis. No suspicious soft tissue foci. IMPRESSION: 1. Near-complete response to therapy with markedly decreasing in FDGactivity and size of the right base tongue mass with small residual FDGuptake and thickening. 2. Resolution of FDG avid right cervical lymphadenopathy. 3. Slight decrease in FDG avidity of right lung cluster peribronchialnodularity is consistent with post inflammation/infection. CRITICAL RESULT: No. COMMUNICATION: Per this written report. By electronically signing this report, I, the attending physician, nima I have personally reviewed the images/data for the aboveexamination(s) and agree with the final edited report. Drafted by Jac Alcantara MD on 03/31/2023 2:50 PM Final report signed by Patricia Ribera MD on 03/31/2023 4:25 PM us Juan Pablo Cee MD IMG NM PROCEDURES Final Result documented in this encounter Visit Diagnoses Diagnosis 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 documented in this encounter Administered Medications Inactive Administered Medications - up to 3 most recent administrations Medication Order MAR Action Action Date Dose Rate Site Fludeoxyglucose F 18 (FDG 18) radio-isotope injection 10 millicurie 10 millicurie, Intravenous, Once, 1 dose, On Thu03/31/23 at 1215, Routine, Imaging NM Protocol Orders Given 03/31/2023 11:58 AM EDT 13.29 millicuries documented in this encounter Additional Health Concerns Assessment Noted Time A fall risk assessment has been complete d for the patient 03/31/2023 2:30 PM EDT documented as of this encounter Care Teams Bi Manager Relationship Specialty Start Date End Date Manjit Gorman MD [address] [place] [address] PCP - General 09/23/22 Olegario Juarez MD [address] [address] Consulting Physician Radiation Oncology 10/29/2207/05 documented as of this encounter
--- OUTSIDE RECORDS SUMMARY | 2024-07-27 06:52 | XMS_ITS | Encounter Summary ---
Author Organization [facility] Address [address] [place], [place] [address] Care Team Providers Care Emergency Medical Technician Name Role Phone Manjit Gorman MD Primary Care Provider [phone] Olegario Juarez MD Unavailable [phone] Encounter Details Date Type Department Care Team (Latest Contact Info) Description 03/28/2023 Travel Social History Tobacco Use Types Packs/Day [...] [facility] [address] [address] 10/17/2024 9:00 AM EST Appointment [facility] PET Scan 800 [place] [address] 10/17/2024 10:00 AM EST Appointment [facility] PET Scan 800 [place] [address] 10/17/2024 11:00 AM EST Office Visit [facility] [address] [phone] Juan Pablo Cee MD [address] [facility] [address] [place] [address] 10/17/2024 1:00 PM EST Clinical Support [facility] Res[facility] [address] [place] [address] 10/17/2024 2:20 PM EST Appointment [facility] Radiology [address] [place] [address] 10/20/2024 3:30 PM EST Office Visit [facility] Ne[facility] Res[facility] [address] [facility], [address]nd [place] [address] Germaine Alejandro MD [address] [place] [address] documented as of this encounter Visit Diagnoses Not on filedocumented in this encounter Additional Health Concerns Assessment Noted Time A fall risk assessment has been complete d for the patient 02/26/2023 2:40 PM EDT documented as of this encounter Care Teams Emergency Medical Technician Relationship Specialty Start Date End Date Manjit Gorman MD [address] [place], [place] [id number] PCP - General 09/23/22 Olegario Juarez MD [address] [place] [phone] Consulting Physician Radiation Oncology 10/29/2207/05 documented as of this encounter
--- OUTSIDE RECORDS SUMMARY | 2024-07-27 06:52 | XMS_ITS | Encounter Summary ---
Author Organization [facility] Address [address] [id number] Care Team Providers Care Bessemer Converter Blower Name Role Phone Manjit Gorman MD Primary Care Provider [phone] Olegario Juarez MD Unavailable [phone] Encounter Details Date Type Department Care Team ([facility] Contact Info) Description 10/06/2023 Telephone [facility] Radiation [address] [facility]. [address] [place] [address] Eduardo Johnston MD [address] [facility] [address] [place] [phone] Social History Tobacco Use Types Packs/Day Years [...] CC Head, Neck & Respiratory [address] [facility], [address]nd [place] [address] 10/17/2024 9:00 AM EST Appointment [facility] PET Scan 800 [place] [address] 10/17/2024 10:00 AM EST Appointment [facility] PET Scan [address] [place] [phone] 10/17/2024 11:00 AM EST Office Visit [facility] Head[facility] Neck [facility] Respiratory [address] [facility], [address]nd [place] [phone] Juan Pablo Cee MD [address] [facility] [address] [place] [address] 10/17/2024 1:00 PM EST Clinical Support [facility] Head[facility] Neck [facility] Respiratory [address] [facility], [address] [place] [address] 10/17/2024 2:20 PM EST Appointment [facility] Radiology [address] [place] [address] 10/20/2024 3:30 PM EST Office Visit [facility] Head[facility] Neck [facility] Respiratory [address] [facility], [address] [place] [address] Germaine Alejandro MD [address] [facility] [address] [place] [phone] documented as of this encounter Visit Diagnoses Not on filedocumented in this encounter Additional Health Concerns Assessment Noted Time A fall risk assessment has been complete d for the patient 08/03/2023 9:50 AM EST documented as of this encounter Care Teams Bessemer Converter Blower Relationship Specialty Start Date End Date Manjit Gorman MD [address] [place], [place] [phone] PCP - General 09/23/22 Olegario Juarez MD [address] [facility] [address] [place] [address] Consulting Physician Radiation Oncology 10/29/2207/05 documented as of this encounter
--- OUTSIDE RECORDS SUMMARY | 2024-07-27 06:52 | XMS_ITS | Encounter Summary ---
Author Organization [facility] Address [address] [place], [place] [id number] Care Team Providers Care Ship Ceiler Name Role Phone Manjit Gorman MD Primary Care Provider [phone] Olegario Juarez MD Unavailable [phone] Reason for Referral * Imaging (Routine) - Closed Specialty Diagnoses / Procedures Referred By Contac t Referred To Contact Radiology Diagnoses Cancer of base of tongue (CMS/HCC) Procedures CT Soft Tissue Neck w IV Contrast Germaine Alejandro MD [address] [place] [address] Jyothi Junior [address] [address] Phone: tel: fax: Referral ID Status Reason Start Date Expiration Date Visits Re quested Visits Authorized [id number] Closed 02/25/2023 08/26/2024 1 1 Reason for Visit * Reason Comments Follow-up Encounter Details Date Type Department Care Team (Late st Contact Info) Description 02/26/2023 2:50 PM EDT Office Visit Pav CC Head, Neck & Respiratory [address] [facility], [address]nd [place] [address] Germaine Alejandro MD [address] [place] [address] Jyothi Junior [address] [address] 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); Mixed conductive and sensorineural hearing loss of both ears; Prostate cancer (CMS/HCC) Social History Tobacco Use Types Packs/Day Years Used Date Smoking Tobacco: Never Smokeless Tobacco: Never Tobacco Cessation:Counseling Given: No Alcohol Use Standard Drinks/Week Comments Yes 0 [...] Sign Reading Time Taken Comments Blood Pressure 130/71 02/26/2023 2:38 PM EDT Pulse 81 02/26/2023 2:38 PM EDT Temperature 36.3 ??C (97.3 ??F) 02/26/2023 2:38 PM ED T Respiratory Rate 18 02/26/2023 2:38 PM EDT Oxygen Saturation 100% 02/26/2023 2:38 PM EDT Inhaled Oxygen Concentration - - Weight 75.6 kg (166 lb 10.7 oz) 02/26/2023 2:38 PM EDT Height 188 cm (6' 2 ) 02/26/2023 2:38 PM EDT Body Mass Index 21.4 02/26/2023 2:38 PM EDT documented in this encounter Miscellaneous Notes * Progress Notes - Germaine Alejandro MD - 02/26/2023 2:50 PM EDT MEDICAL ONCOLOGY FOLLOW-UP NOTE Patient Information Patient Name: Erick Sierra Date of : 1950 REFERRING PHYSICIAN: Manjit Gorman MD Encounter Date: 02/26/2023 Treatment Diagnosis: Cancer Staging Cancer of base of tongue ([facility]/HCC) Staging form: Pharynx - HPV-Mediated Oropharynx, AJCC 8th Edition - Clinical stage from 10/29/2022: Stage I (cT2, cN1, cM0, p16+) - Signed by Germaine Alejandro MD on11/10/2022 History of Present Illness: Erick Sierra is a 72 y.o. male who returns for followup of his Cancer Staging Cancer of base of tongue (CMS/HCC), Staging form: Pharynx - HPV-Mediated Oropharynx, AJCC 8th Edition, Clinical: Stage I. he returns for followup after treatment of head and neck cancer, He is doing well, and his energy is improved. He has recently had a PSA checked at his urologists, and it is 1.0. 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 CT Chest 10/21/22 showed no metastatic disease. [...] (11/14/2022), 130 mg (12/05/2022), 130 mg (12/26/2022) 11/17/2022 - Radiation Therapy The patient saw Olegario Juarez MD for radiation treatment. This is the current list of radiation treatment: Radiation Treatments No radiation treatments to show. (Treatments may have been administered in another system.) Currently, he denies fever, or chills, nausea, vomiting, dry mouth, throat pain, dysphagia, voice changes, hearing loss, visual changes, stridor, dysuria, hematuria, constipation, melena, diarrhea, hematochezia, hematemesis, abdominal pain, shortness of breath, cough, sputum production, mental status changes, neuropathy, chest pain, palpitations, rash, itching. Problem List and Medications Reviewed in this encounter by me personally Objective Performance Status 0: Fully active, able to carry on all pre-disease performance without restriction Blood pressure 130/71, pulse 81, temperature 36.3 ??C (97.3 ??F), temperature source Oral, resp. rate 18, height 1.88 m (6' 2 ), weight 75.6 kg (166 lb 10.7 oz), SpO2 100 %. EXAM Physical Exam Constitutional: General: He is not in acute distress. Appearance: He is not ill-appearing. HENT: Head: Normocephalic and atraumatic. Right Ear: External ear normal. Left Ear: External ear normal. Nose: Nose normal. Mouth/Throat: Mouth: Mucous membranes are dry. Pharynx: No oropharyngeal exudate or posterior oropharyngeal [...] cancer related drug toxicity and treatment related senior living toxicity CBC WBC 5.08 Hgb 11.7 PLT 247 HCT 35.0 Lab Results Component Value Date NEUTROABS 3.75 02/19/2023 BMPL Na 139 Cl 104 BUN 20 Gluc 87 K 4.4 Co2 24 Creat 1.07 LIVER FUNCTION TESTING Tot Prot 6.2 AST 17 Tot bili 0.4 ALT 12 Alkphos 55 Ca 9.1 Mg 1.8 Lab Results Component Value Date TSH 1.82 02/19/2023 RADIOLOGY: I independently visualized the recent imaging below based on the patient's symptoms and oncologic history. CT Soft Tissue Neck w IV Contrast Result Date: 02/20/2023 Impression: Expected evolution of post treatment changes, with reduction of size of right tongue base/tonsillar mass, and of cervical adenopathy. No new mass or adenopathy. Miguel Nguyen M.D. This report has been electronically signed and verified by the Radiologist whose name is printed above. / CT Chest w IV Contrast Result Date: 02/19/2023 Impression: No evidence of neoplastic disease progression the chest, abdomen and pelvis. CRITICAL RESULT: No. COMMUNICATION: Per this written report. Drafted by Veto Bautista MD on 02/19/2023 3:39 PM Final report signed by Veto Bautista MD on 02/19/2023 3:[address] Abdomen Pelvis w IV Contrast Result Date: 02/19/2023 Impression: No evidence of neoplastic disease progression the chest, abdomen and pelvis. CRITICAL RESULT: No. COMMUNICATION: Per this written report. Drafted by Veto Bautista MD on 02/19/2023 3:39 PM Final report signed by Veto Bautista MD on 02/19/2023 3:48 PM Assessment/Plan 1. Cancer management : Erick Sierra [...] prior systemic cancer treatment - RTC in 4.5 M with labs/scans 2. Pain related to neoplasm: resolved - no longer requiring gabapentin for throat pain 3. Dysphagia Advancing diet as tolerated 4. Monitoring for appearance of hypothyroidism - TSH WNL on 02/19/23 Germaine Alejandro MD Orders Placed This Encounter Procedures CT Soft Tissue Neck w IV Contrast Thyroid Stimulating Hormone, Plasma CBC and Differential Comprehensive Metabolic Panel, Plasma documented in this encounter Plan of Treatment Upcoming Encounters Date Type Department Care Team (Late st Contact Info) Description 10/17/2024 8:00 AM EST Clinical Support Pav CC Head, Neck & Respiratory [address] [facility], [address] [place] [address] 10/17/2024 9:00 AM EST Appointment [facility] PET Scan [address] [place] [address] 10/17/2024 10:00 AM EST Appointment [facility] PET Scan 800 [place] [address] 10/17/2024 11:00 AM EST Office Visit Pav CC Head, Neck & Respiratory [address] [facility], [address] [place] [address] Juan Pablo Cee MD [address] [place] [address] 10/17/2024 1:00 PM EST Clinical Support Pav CC Head, Neck & Respiratory [address] [facility], [address]nd [place] [address] 10/17/2024 2:20 PM EST Appointment [facility] Radiology [address] [place] [address] 10/20/2024 3:30 PM EST Office Visit Pav CC Head, Neck & Respiratory [address] [facility], [address] [place] [address] Germaine Alejandro MD [address] [facility] [address]yoth[address] [place] [address] documented as of this encounter Results * CT Soft Tissue Neck w IV Contrast (07/10/2023 11:33 AM EDT) Anatomical Region Laterality Modality Neck Computed Tomogra phy Impressions 07/10/2023 8:30 PM EDT Posttreatment changes of the neck. No new enhancing mass of the pharynx or larynx is seen. No significant cervical adenopathy is present. CRITICAL RESULT: No. COMMUNICATION: Per this written report. Drafted by Nely Gale MD on 07/10/2023 8:14 PM Final report signed by Nely Gale MD on 07/10/2023 8:30 PM Narrative 07/10/2023 8:30 PM EDT CLINICAL INDICATION: Head and neck cancer, assess treatment response. Per the sixth [facility] medical oncology clinic note, the patient has a history of right base of tongue cancer, status post chemotherapy and radiation. TECHNIQUE: Helical images were obtained through the neck, and reconstructed in the axial plane on bone and soft tissue algorithm at multiple slice thicknesses. Coronal and sagittal reformatted images are provided. 85 mL of Omnipaque-300 was administered intravenously. Total DLP (Dose-Length Product): 436.29 mGy.cm. Please note: The reported value represents the total of one or more individual components during the CT acquisition on this date and at this time, and as such, the same value may appear in more than one CT report depending on the interpreting/reporting physicians. COMPARISON: 02/19/2023, 08/12/2022 FINDINGS: Diagnostic Quality: Artifacts from dental amalgam limit evaluation. Soft Tissues: No masses are present within the soft tissues of the neck. Lymph Nodes: No enlarged cervical lymph nodes are seen. Pharynx/Larynx: Thickening of pharyngeal or laryngeal soft tissues compatible with posttreatment change. No new enhancing mass is seen. Oral Cavity: No large masses are present within the oral cavity within the limitations of the study. Parapharyngeal Space: No lesions are present within the parapharyngeal space. Salivary Glands: The parotid and submandibular glands are unremarkable. Thyroid: No focal thyroid lesions are present, within the limitations of the study. Orbits: No orbital masses are present within the visualized portions of the orbits. Paranasal sinuses: Probable retention cyst of the right maxillary sinus. Skull base: Within the skull base, there is no focal lesion or destructive process. Bones/Spine: Osteopenia. Degenerative changes of the temporomandibular joints. There are degenerative changes of the spine. No bony destructive lesion is present. Thoracic Inlet and Lung Apices: Within the limitations of the study, no large masses are present at the thoracic inlet. The lung apices are grossly clear. Please see the separate report for the chest CT scan for discussion of thoracic findings. Procedure Note Nely Gale MD - 07/10/2023 CLINICAL INDICATION: Head and neck cancer, assess treatment response. [facility], the patient has a history of right base oftongue cancer, status post chemotherapy and radiation. TECHNIQUE: Helical images were obtained through the neck, and reconstructed in theaxial plane on bone and soft tissue algorithm at multiple slicethicknesses. Coronal and sagittal reformatted images are provided. 85 mLof Omnipaque-300 was administered intravenously. Total DLP (Dose-Length Product): 436.29 mGy.cm. Please note: The reportedvalue represents the total of one or more individual components during theCT acquisition on this date and at this time, and as such, the same valuemay appear in more than one CT report depending on theinterpreting/reporting physicians. COMPARISON: 02/19/2023, 08/12/2022 FINDINGS: Diagnostic Quality: Artifacts from dental amalgam limit evaluation. Soft Tissues: No masses are present within the soft tissues of the neck. Lymph Nodes: No enlarged cervical lymph nodes are seen. Pharynx/Larynx: Thickening of pharyngeal or laryngeal soft tissuescompatible with posttreatment change. No new enhancing mass is seen. Oral Cavity: No large masses are present within the oral cavity within thelimitations of the study. Parapharyngeal Space: No lesions are present within the parapharyngealspace. Salivary Glands: The parotid and submandibular glands are unremarkable. Thyroid: No focal thyroid lesions are present, within the limitations ofthe study. Orbits: No orbital masses are present within the visualized portions ofthe orbits. Paranasal sinuses: Probable retention cyst of the right maxillary sinus. Skull base: Within the skull base, there is no focal lesion or destructiveprocess. Bones/Spine: Osteopenia. Degenerative changes of the temporomandibularjoints. There are degenerative changes of the spine. No bony destructivelesion is present. Thoracic Inlet and Lung Apices: Within the limitations of the study, nolarge masses are present at the thoracic inlet. The lung apices aregrossly clear. Please see the separate report for the chest CT scan fordiscussion of thoracic findings. IMPRESSION: Posttreatment changes of the neck. No new enhancing mass of the pharynx orlarynx is seen. No significant cervical adenopathy is present. CRITICAL RESULT: No. COMMUNICATION: Per this written report. Drafted by Nely Gale MD on 07/10/2023 8:14 PM Final report signed by Nely Gale MD on 07/10/2023 8:30 PM Germaine Alejandro MD IM CT PROCEDURES Final Resu lt * (ABNORMAL) Comprehensive Metabolic Panel, Plasma (07/10/2023 9:41 AM EDT) Glucose, Plasma 88 74 - 99 mg/dL 07/10/2023 10:28 AM EDT [facility] BUN, Plasma 25(H) 8 - 23 mg/dL 07/10/2023 10:28 AM EDT [facility] Creatinine, Plasma 1.20 0.80 - 1.30 mg/dL 07/10/2023 10:28 AM EDT [facility] BUN/Creatinine Ratio 21 07/10/2023 10:28 AM EDT [facility] Sodium, Plasma 138 136 - 145 mmol/L 07/10/2023 10:28 AM EDT [facility] Potassium, Plasma 4.0 3.7 - 4.8 mmol/L 07/10/2023 10:28 AM EDT [facility] Chloride, Plasma 103 97 - 107 mmol/L 07/10/2023 10:28 AM EDT [facility] CO2, Plasma 26 22 - 29 mmol/L 07/10/2023 10:28 AM EDT [facility] Anion Gap 9 6 - 16 mmol/L 07/10/2023 10:28 AM EDT [facility] Total Calcium, Plasma 9.5 8.9 - 10.2 mg/dL 07/10/2023 10:28 AM EDT [facility] Total Protein 6.8 6.3 - 7.9 g/dL 07/10/2023 10:28 AM EDT [facility] Albumin, Plasma 4.4 3.5 - 5.2 g/dL 07/10/2023 10:28 AM EDT [facility] AST, Plasma 20 10 - 50 U/L 07/10/2023 10:28 AM EDT [facility] ALT, Plasma 20 10 - 50 U/L 07/10/2023 10:28 AM EDT [facility] Alkaline Phosphatase, Plasma 59 40 - 115 U/L 07/10/2023 10:28 AM EDT [facility] Total Bilirubin, Plasma 0.5 0.2 - 1.1 mg/dL 07/10/2023 10:28 AM EDT [facility] eGFRcr 64.3 mL/min/1.7 3m*2 07/10/2023 10:28 AM EDT [facility] Comment:Reported eGFRcr in m L/min/1.73m2 is based the CKD-EPI 2020 equation that does not use a race coefficient. Blood Venous blood specimen / Unknown Venipuncture / Unknown 07/10/2023 9:41 AM EDT 07/10/2023 9:51 AM EDT us Germaine Alejandro MD LAB BLOOD ORDERABLES Final R esult [facility] [address] [place] [address] * (ABNORMAL) CBC and Differential (07/10/2023 9:41 AM EDT) WBC Count 3.98 3.70 - 10.30 10*3/uL LAB HEMATOLOGY METHOD 07/10/2023 10:04 AM EDT [facility] RBC Count 4.38(L) 4.60 - 6.10 10*6/uL LAB HEMATOLOGY METHOD 07/10/2023 10:04 AM EDT [facility] HGB 13.1(L) 13.7 - 17.5 g/dL LAB HEMATOLOGY METHOD 07/10/2023 10:04 AM EDT [facility] HCT 40.4 40.0 - 51.0 % LAB HEMATOLOGY METHOD 07/10/2023 10:04 AM EDT [facility] Platelet Count 249 155 - 369 10*3/uL LAB HEMATOLOGY METHOD 07/10/2023 10:04 AM EDT [facility] MCV 92 79 - 98 fL LAB HEMATOLOGY METHOD 07/10/2023 10:04 AM EDT [facility] MCH 29.9 26.0 - 32.0 pg LAB HEMATOLOGY METHOD 07/10/2023 10:04 AM EDT [facility] MCHC 32.4 30.7 - 35.5 g/dL LAB HEMATOLOGY METHOD 07/10/2023 10:04 AM EDT [facility] RDW 13.2 11.5 - 14.5 % LAB HEMATOLOGY METHOD 07/10/2023 10:04 AM EDT [facility] MPV 8.7(L) 8.8 - 12.5 fL LAB HEMATOLOGY METHOD 07/10/2023 10:04 AM EDT [facility] nRBC 0.0 <=0.0 per 100 WBCs LAB HEMATOLOGY METHOD 07/10/2023 10:04 AM EDT [facility] Differential Type Automated LAB HEMATOLOGY METHOD 07/10/2023 10:04 AM EDT [facility] Neutrophils % 72.0 % LAB HEMATOLOGY METHOD 07/10/2023 10:04 AM EDT [facility] Lymphocytes % 13.0 % LAB HEMATOLOGY METHOD 07/10/2023 10:04 AM EDT [facility] Monocytes % 12.0 % LAB HEMATOLOGY METHOD 07/10/2023 10:04 AM EDT [facility] Eosinophils % 2.0 % LAB HEMATOLOGY METHOD 07/10/2023 10:04 AM EDT [facility] Basophils % 1.0 % LAB HEMATOLOGY METHOD 07/10/2023 10:04 AM EDT [facility] Immature Granulocytes % 0.0 % LAB HEMATOLOGY METHOD 07/10/2023 10:04 AM EDT [facility] Neutrophils Absolute 2.85 1.60 - 6.10 10*3/uL LAB HEMATOLOGY METHOD 07/10/2023 10:04 AM EDT [facility] Lymphocytes Absolute 0.51(L) 1.20 - 3.90 10*3/uL LAB HEMATOLOGY METHOD 07/10/2023 10:04 AM EDT [facility] Monocytes Absolute 0.49 0.30 - 0.90 10*3/uL LAB HEMATOLOGY METHOD 07/10/2023 10:04 AM EDT [facility] Eosinophils Absolute 0.09 0.00 - 0.50 10*3/uL LAB HEMATOLOGY METHOD 07/10/2023 10:04 AM EDT [facility] Basophils Absolute 0.03 0.00 - 0.10 10*3/uL LAB HEMATOLOGY METHOD 07/10/2023 10:04 AM EDT [facility] Immature Granulocytes Absolute 0.01 0.00 - 0.06 10*3/uL LAB HEMATOLOGY METHOD 07/10/2023 10:04 AM EDT [facility] Blood Venous blood specimen / Unknown Venipuncture / Unknown 07/10/2023 9:41 AM EDT 07/10/2023 9:51 AM EDT Narrative [facility] - 07/10/2023 10:04 AM EDT Therapeutic decision making should be based on absolute values, rather than percentages. Germaine Alejandro MD LAB BLOOD ORDERABLES Final R esult [facility] [address] [place] [address] * Thyroid Stimulating Hormone, Plasma (07/10/2023 9:41 AM EDT) Thyroid Stimulating Hormone, Plasma 3.54 0.40 - 4.20 uIU/mL 07/10/2023 10:28 AM EDT [facility] Blood Venous blood specimen / Unknown Venipuncture / Unknown 07/10/2023 9:41 AM EDT 07/10/2023 9:51 AM EDT us Germaine Alejandro MD LAB BLOOD ORDERABLES Final R esult [facility] [address] [place] [address] documented in this encounter Visit Diagnoses Diagnosis Cancer of base of tongue (CMS/HCC)- Primary Malignant neoplasm of base of tongue Mixed conductive and sensorineural hearing loss of both ears Prostate cancer (CMS/HCC) Malignant neoplasm of prostate 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 documented in this encounter Additional Health Concerns Assessment Noted Time A fall risk assessment has been complete d for the patient 02/26/2023 2:40 PM EDT documented as of this encounter Care Teams Ship Ceiler Relationship Specialty Start Date End Date Manjit Gorman MD [address] [place] [address] PCP - General 09/23/22 Olegario Juarez MD [address] [place] [address] [address] [place] [address] Consulting Physician Radiation Oncology 10/29/2207/05 documented as of this encounter
--- OUTSIDE RECORDS SUMMARY | 2024-07-27 06:52 | XMS_ITS | Encounter Summary ---
Author Organization [facility] Address [address] [place], [place] [id number] Care Team Providers Care Wireless Communications Engineer Name Role Phone Manjit Gorman MD Primary Care Provider [phone] Olegario Juarez MD Unavailable [phone] Encounter Details Date Type Department Care Team (Latest Contact Info) Description 06/01/2023 Travel Social History Tobacco Use Types Packs/Day [...] CC Head, Neck & Respiratory [address] [address] 10/17/2024 9:00 AM EST Appointment [facility] PET Scan [address] [place] [address] 10/17/2024 10:00 AM EST Appointment [facility] PET Scan [address] [place] [address] 10/17/2024 11:00 AM EST Office Visit Pav CC Head, Neck & Respiratory [address] [phone] Juan Pablo Cee MD [address] [facility] [address] [place] [address] 10/17/2024 1:00 PM EST Clinical Support Pav CC Head, Neck & Respiratory [address] , [address] [place] [address] 10/17/2024 2:20 PM EST Appointment [facility] Radiology [address] [place] [address] 10/20/2024 3:30 PM EST Office Visit Pav CC Head, Neck & Respiratory 800 [facility], [address]nd [place] [address] Germaine Alejandro MD [address] [place] [address] documented as of this encounter Visit Diagnoses Not on filedocumented in this encounter Additional Health Concerns Assessment Noted Time A fall risk assessment has been complete d for the patient 06/01/2023 9:30 AM EDT documented as of this encounter Care Teams Wireless Communications Engineer Relationship Specialty Start Date End Date Manjit Gorman MD [address] [place], [place] [phone] PCP - General 09/23/22 Olegario Juarez MD [address] [place] [address] Consulting Physician Radiation Oncology 10/29/2207/05 documented as of this encounter
--- OUTSIDE RECORDS SUMMARY | 2024-07-27 06:52 | XMS_ITS | Encounter Summary ---
Author Organization [facility] Address [address] [place], [place] [id number] Care Team Providers Care Superintendent Nonselling Name Role Phone Manjit Gorman MD Primary Care Provider [phone] Olegario Juarez MD Unavailable [phone] Encounter Details Date Type Department Care Team (Latest Contact Info) Description 03/31/2023 Travel Social History Tobacco Use Types Packs/Day [...] CC Head, Neck & Respiratory [address] [address] 10/17/2024 9:00 AM EST Appointment [facility] PET Scan 800 [place] [address] 10/17/2024 10:00 AM EST Appointment [facility] PET Scan [address] [place] [address] 10/17/2024 11:00 AM EST Office Visit Pav [facility] Head, Neck & Respiratory [address] [phone] Juan Pablo Cee MD [address] [facility] [address] [place] [address] 10/17/2024 1:00 PM EST Clinical Support Pav CC Head, Neck & Respiratory [address] [place] [address] 10/17/2024 2:20 PM EST Appointment [facility] [address] [place] [address] 10/20/2024 3:30 PM EST Office Visit Pav CC Head, Neck & Respiratory [address] [facility], 2nd [place] [address] Germaine Alejandro MD [address] [place] [address] documented as of this encounter Visit Diagnoses Not on filedocumented in this encounter Additional Health Concerns Assessment Noted Time A fall risk assessment has been complete d for the patient 03/31/2023 2:30 PM EDT documented as of this encounter Care Teams Superintendent Nonselling Relationship Specialty Start Date End Date Manjit Gorman MD [address] [place], [place] [id number] PCP - General 09/23/22 Olegario Juarez MD [address] [place] [address] Consulting Physician Radiation Oncology 10/29/2207/05 documented as of this encounter
--- OUTSIDE RECORDS SUMMARY | 2024-07-27 06:52 | XMS_ITS | Encounter Summary ---
Author Organization Healthcare Address [address] [id number] Care Team Providers Care Automation Architect Name Role Phone Manjit Gorman MD Primary Care Provider [phone] Olegario Juarez MD Unavailable [phone] Reason for Visit * Reason Comments Follow-up Encounter Details Date Type Department Care Team ([facility] Contact Info) Description 06/01/2023 10:00 AM EDT Office Visit [facility] Ne[facility] Res[facility] [address] [place] [address] Juan Pablo Cee MD [address] [facility] [address] [place] [address] Cancer of base of tongue [...] Sign Reading Time Taken Comments Blood Pressure 159/78 06/01/2023 9:30 AM EDT Pulse 63 06/01/2023 9:30 AM EDT Temperature 36.3 ??C (97.4 ??F) 06/01/2023 9:30 AM ED T Respiratory Rate 18 06/01/2023 9:30 AM EDT Oxygen Saturation 100% 06/01/2023 9:30 AM EDT Inhaled Oxygen Concentration - - Weight 76.1 kg (167 lb 12.3 oz) 06/01/2023 9:30 AM EDT Height - - Body Mass Index 21.54 03/31/2023 2:29 PM EDT documented in this encounter Miscellaneous Notes * Progress Notes - Amrik Burt MD - 06/01/2023 10:00 AM EDT Mr. Erick Sierra is a very pleasant 72 y.o. patient who is returning to the clinic today for his follow-up. He was last seen in my clinic on 03/31/2023 and recommended scheduled 2 month follow-up. 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 He was kindly sent to my clinic in consultation for [...] evaluated by Medical and Radiation Oncology at [facility]. He started his radiation treatment on11/11/2022 and [...] head and neck region or his chest. He has been doing very well since his last visit and denies any new symptoms. He continues to have some dysgeusia and xerostomia. His dysphagia has improved significantly. The patient reported otalgia, denies otorrhea, hearing loss, vertigo or tinnitus. He denied having sinonasal symptoms, postnasal drip, epistaxis, nasal congestion/obstruction or anosmia/hyposmia. He also denied, odynophagia, dysphonia, dyspepsia, dyspnea or reflux disease. The patient's complete review of system from 06/01/23 was performed today. All systems were negative except for those mentioned in the HPI, prostate cancer, hypertension, allergic rhinitis, history of skin cancer. Radiographs: - CT scan of the neck: . 08/12/2022: asymmetry in the right oropharynx base of tongue with right-sided cervical lymphadenopathy . 02/19/2023: Posttreatment changes with decrease of the right level 2 lymph nodes now measuring 0.8cm and 1.1 cm - CT scan of the chest: . 10/21/2022: No evidence of thoracic malignancy . 02/19/2023: No evidence of thoracic malignancy - PET CT scan: . 09/05/2022: Right [...] illicit drugs PHYSICAL EXAMINATION: Visit Vitals BP (!) 159/78 (BP Location: Left arm, Patient Position: Sitting) Pulse 63 Temp 36.3 ??C (97.4 ??F) (Oral) Wt 76.1 kg (167 lb 12.3 oz) SpO2 100% BMI 21.54 kg/m?? General: He is a very healthy-appearing 72 y.o. patient, alert and oriented x3, in no acute distress, well nourished, well developed. Psychiatric evaluation: Normal mood and affect, very pleasant and cooperative. Otoscopy: did not reveal any cerumen impaction. Tympanic membranes are normal without any middle ear effusions. Nasal cavity examination: Septum is midline. I [...] treatment on 12/30/2022 6- bilateral hearing loss RECOMMENDATIONS: I discussed those findings with the patient. I answered his questions to the best of my abilities. His clinical examination does not reveal any tumor in the right base of tongue and I am unable to palpate any enlarged lymphadenopathy in his neck I recommend he continue with his scheduled follow-up visits with Dr. Alejandro. I will plan to see himback in 2 months, after which I will stagger my appointments with Dr. Pena. Juan Pablo Cee MD MS FACS [employer] Inspector Head & Neck Oncology Rhinology & Skull Base Surgery Cosigned by Juan Pablo Cee MD at 06/10/2023 1:40 PM EDT Associated attestation - Juan Pablo Cee MD - 06/10/2023 1:40 PM EDT I saw and evaluated the patient with the resident/fellow. I discussed the case with the resident/fellow and agree with the findings and plan as documented. documented in this encounter Plan of Treatment Upcoming Encounters Date Type Department Care Team (Late st Contact Info) Description 10/17/2024 8:00 AM EST Clinical Support [facility] [address] [address] 10/17/2024 9:00 AM EST Appointment [facility] PET Scan [address] [place] [address] 10/17/2024 10:00 AM EST Appointment [facility] PET Scan [address] [place] [address] 10/17/2024 11:00 AM EST Office Visit [facility] Head[facility] Neck [facility] Respiratory [address] [facility] [address] [place] [address] Juan Pablo Cee MD [address] [place] [phone] 10/17/2024 1:00 PM EST Clinical Support [facility] Neck [facility] Respiratory [address] [facility], [address] [place] [address] 10/17/2024 2:20 PM EST Appointment [facility] Radiology [address] [place] [address] 10/20/2024 3:30 PM EST Office Visit [facility] Head[facility] Neck [facility] Respiratory [address] [facility], [address]nd [place] [address] Germaine Alejandro MD [address] [facility] [address] [place] [address] documented as of this encounter Visit Diagnoses Diagnosis 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 documented in this encounter Additional Health Concerns Assessment Noted Time A fall risk assessment has been complete d for the patient 06/01/2023 9:30 AM EDT documented as of this encounter Care Teams Automation Architect Relationship Specialty Start Date End Date Manjit Gorman MD [address] [place], [place] [id number] PCP - General 09/23/22 Olegario Juarez MD [address] [facility] [address] [place] [address] Consulting Physician Radiation Oncology 10/29/2207/05 documented as of this encounter
--- OUTSIDE RECORDS SUMMARY | 2024-07-27 06:52 | XMS_ITS | Encounter Summary ---
Author Organization [facility] Address [address] [place], [place] [id number] Care Team Providers Care Belt And Link Shop Supervisor Name Role Phone Manjit Gorman MD Primary Care Provider [phone] Olegario Juarez MD Unavailable [phone] Encounter Details Date Type Department Care Team (Latest Contact Info) Description 08/03/2023 Travel Social History Tobacco Use Types Packs/Day [...] [facility] Ne[facility] Res[facility] [address] [address] 10/17/2024 9:00 AM EST Appointment [facility] PET Scan 800 [place] [address] 10/17/2024 10:00 AM EST Appointment [facility] PET Scan 800 [place] [address] 10/17/2024 11:00 AM EST Office Visit [facility] [address] [phone] Juan Pablo Cee MD [address] [facility] [address] [place] [address] 10/17/2024 1:00 PM EST Clinical Support [facility] Neck [facility] Respiratory [address] [place] [address] 10/17/2024 2:20 PM EST Appointment [facility] Radiology [address] [place] [address] 10/20/2024 3:30 PM EST Office Visit [facility] Head[facility] Neck [facility] Respiratory 800 [facility], [address]nd [place] [address] Germaine Alejandro MD [address] [place] [address] documented as of this encounter Visit Diagnoses Not on filedocumented in this encounter Additional Health Concerns Assessment Noted Time A fall risk assessment has been complete d for the patient 08/03/2023 9:50 AM EST documented as of this encounter Care Teams Belt And Link Shop Supervisor Relationship Specialty Start Date End Date Manjit Gorman MD [address] [place], [place] [phone] PCP - General 09/23/22 Olegario Juarez MD [address] [place] [phone] Consulting Physician Radiation Oncology 10/29/2207/05 documented as of this encounter
--- OUTSIDE RECORDS SUMMARY | 2024-07-27 06:52 | XMS_ITS | Encounter Summary ---
Author Organization [facility] Address [address] [place] [address] Care Team Providers Care Crane Crew Supervisor Name Role Phone Manjit Gorman MD Primary Care Provider Olegario Juarez MD Unavailable [phone] Reason for Visit * Reason Comments Labs Peripheral stick rig ht arm Encounter Details Date Type Department Care Team (Latest Contact Info) Description 07/10/2023 9:45 AM EDT Clinical Support [facility] [address] [address] Cancer of base of tongue (CMS/HCC) Social [...] [facility] Head[facility] Neck [facility] Respiratory [address] [facility], [address] [place] [address] 10/17/2024 9:00 AM EST Appointment [facility] PET Scan [address] [place] [address] 10/17/2024 10:00 AM EST Appointment [facility] PET Scan [address] [place] [address] 10/17/2024 11:00 AM EST Office Visit [facility] Head[facility] Neck [facility] Respiratory [address] [facility], [address] [place] [address] Juan Pablo Cee MD [address] [facility] [address] [place] [address] 10/17/2024 1:00 PM EST Clinical Support [facility] Head[facility] Neck [facility] Respiratory [address] [facility], [address] [place] [address] 10/17/2024 2:20 PM EST Appointment [facility] Radiology [address] [place] [address] 10/20/2024 3:30 PM EST Office Visit [facility] Head[facility] Neck [facility] Respiratory [address] [facility], [address] [place] [address] Germaine Alejandro MD [address] [facility] [address] [place] [phone] documented as of this encounter Procedures Procedure Name Priority Date/Time Associated Diagnosis Comments CBC WITH AUTO DIFFERENTIAL Routine 07/10/2023 9:41 AM EDT Cancer of base of tongue (CMS/HCC) TSH Routine 07/10/2023 9:41 AM EDT Cancer of base of tongue (CMS/HCC) COMPREHENSIVE METABOLIC PANEL, PLASMA Routine 07/10/2023 9:41 AM EDT Cancer of base of tongue (CMS/HCC) documented in this encounter Results * Thyroid Stimulating Hormone, Plasma (07/10/2023 9:41 AM EDT) Thyroid Stimulating Hormone, Plasma 3.54 0.40 - 4.20 uIU/mL 07/10/2023 10:28 AM EDT [facility] Blood Venous blood specimen / Unknown Venipuncture / Unknown 07/10/2023 9:41 AM EDT 07/10/2023 9:51 AM EDT us Germaine Alejandro MD LAB BLOOD ORDERABLES Final R esult [facility] [address] [place] [address] * (ABNORMAL) Comprehensive Metabolic Panel, Plasma (07/10/2023 9:41 AM EDT) [facility] Glucose, Plasma 88 74 - 99 mg/dL 07/10/2023 10:28 AM EDT [facility] BUN, Plasma 25(H) 8 - 23 mg/dL 07/10/2023 10:28 AM EDT [facility] Creatinine, Plasma 1.20 0.80 - 1.30 mg/dL 07/10/2023 10:28 AM EDT [facility] BUN/Creatinine Ratio 21 07/10/2023 10:28 AM EDT [facility] Sodium, Plasma 138 136 - 145 mmol/L 07/10/2023 10:28 AM EDT [facility] Potassium, Plasma 4.0 3.7 - 4.8 mmol/L 07/10/2023 10:28 AM EDT [facility] Chloride, Plasma 103 97 - 107 mmol/L 07/10/2023 10:28 AM EDT [facility] CO2, Plasma 26 22 - 29 mmol/L 07/10/2023 10:28 AM EDT [facility] Anion Gap 9 6 - 16 mmol/L 07/10/2023 10:28 AM EDT [facility] Total Calcium, Plasma 9.5 8.9 - 10.2 mg/dL 07/10/2023 10:28 AM EDT [facility] Total Protein 6.8 6.3 - 7.9 g/dL 07/10/2023 10:28 AM EDT [facility] Albumin, Plasma 4.4 3.5 - 5.2 g/dL 07/10/2023 10:28 AM EDT [facility] AST, Plasma 20 10 - 50 U/L 07/10/2023 10:28 AM EDT [facility] ALT, Plasma 20 10 - 50 U/L 07/10/2023 10:28 AM EDT [facility] Alkaline Phosphatase, Plasma 59 40 - 115 U/L 07/10/2023 10:28 AM EDT [facility] Total Bilirubin, Plasma 0.5 0.2 - 1.1 mg/dL 07/10/2023 10:28 AM EDT [facility] eGFRcr 64.3 mL/min/1.7 3m*2 07/10/2023 10:28 AM EDT [facility] Comment:Reported eGFRcr in m L/min/1.73m2 is based the CKD-EPI 2020 equation that does not use a race coefficient. Blood Venous blood specimen / Unknown Venipuncture / Unknown 07/10/2023 9:41 AM EDT 07/10/2023 9:51 AM EDT us Germaine Alejandro MD LAB BLOOD ORDERABLES Final R esult [facility] [address] [place] [address] * (ABNORMAL) CBC and Differential (07/10/2023 9:41 AM EDT) WBC Count 3.98 3.70 - 10.30 10*3/uL LAB HEMATOLOGY METHOD 07/10/2023 10:04 AM EDT [facility] RBC Count 4.38(L) 4.60 - 6.10 10*6/uL LAB HEMATOLOGY METHOD 07/10/2023 10:04 AM EDT [facility] HGB 13.1(L) 13.7 - 17.5 g/dL LAB HEMATOLOGY METHOD 07/10/2023 10:04 AM EDT [facility] HCT 40.4 40.0 - 51.0 % LAB HEMATOLOGY METHOD 07/10/2023 10:04 AM EDT [facility] Platelet Count 249 155 - 369 10*3/uL LAB HEMATOLOGY METHOD 07/10/2023 10:04 AM EDT [facility] MCV 92 79 - 98 fL LAB HEMATOLOGY METHOD 07/10/2023 10:04 AM EDT [facility] MCH 29.9 26.0 - 32.0 pg LAB HEMATOLOGY METHOD 07/10/2023 10:04 AM EDT [facility] MCHC 32.4 30.7 - 35.5 g/dL LAB HEMATOLOGY METHOD 07/10/2023 10:04 AM EDT [facility] RDW 13.2 11.5 - 14.5 % LAB HEMATOLOGY METHOD 07/10/2023 10:04 AM EDT [facility] MPV 8.7(L) 8.8 - 12.5 fL LAB HEMATOLOGY METHOD 07/10/2023 10:04 AM EDT [facility] nRBC 0.0 <=0.0 per 100 WBCs LAB HEMATOLOGY METHOD 07/10/2023 10:04 AM EDT [facility] Differential Type Automated LAB HEMATOLOGY METHOD 07/10/2023 10:04 AM EDT [facility] Neutrophils % 72.0 % LAB HEMATOLOGY METHOD 07/10/2023 10:04 AM EDT [facility] Lymphocytes % 13.0 % LAB HEMATOLOGY METHOD 07/10/2023 10:04 AM EDT [facility] Monocytes % 12.0 % LAB HEMATOLOGY METHOD 07/10/2023 10:04 AM EDT [facility] Eosinophils % 2.0 % LAB HEMATOLOGY METHOD 07/10/2023 10:04 AM EDT [facility] Basophils % 1.0 % LAB HEMATOLOGY METHOD 07/10/2023 10:04 AM EDT [facility] Immature Granulocytes % 0.0 % LAB HEMATOLOGY METHOD 07/10/2023 10:04 AM EDT [facility] Neutrophils Absolute 2.85 1.60 - 6.10 10*3/uL LAB HEMATOLOGY METHOD 07/10/2023 10:04 AM EDT [facility] Lymphocytes Absolute 0.51(L) 1.20 - 3.90 10*3/uL LAB HEMATOLOGY METHOD 07/10/2023 10:04 AM EDT [facility] Monocytes Absolute 0.49 0.30 - 0.90 10*3/uL LAB HEMATOLOGY METHOD 07/10/2023 10:04 AM EDT [facility] Eosinophils Absolute 0.09 0.00 - 0.50 10*3/uL LAB HEMATOLOGY METHOD 07/10/2023 10:04 AM EDT [facility] Basophils Absolute 0.03 0.00 - 0.10 10*3/uL LAB HEMATOLOGY METHOD 07/10/2023 10:04 AM T [facility] Immature Granulocytes Absolute 0.01 0.00 - 0.06 10*3/uL LAB HEMATOLOGY METHOD 07/10/2023 10:04 AM EDT [facility] Blood Venous blood specimen / Unknown Venipuncture / Unknown 07/10/2023 9:41 AM EDT 07/10/2023 9:51 AM EDT Narrative [facility] - 07/10/2023 10:04 AM EDT Therapeutic decision making should be based on absolute values, rather than percentages. Germaine Alejandro MD LAB BLOOD ORDERABLES Final R esult [facility] [address] [place] [address] documented in this encounter Visit Diagnoses Diagnosis 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 documented in this encounter Additional Health Concerns Assessment Noted Time A fall risk assessment has been complete d for the patient 07/10/2023 1:12 PM EDT documented as of this encounter Care Teams Crane Crew Supervisor Relationship Specialty Start Date End Date Manjit Gorman MD [address] [place] [address] PCP - General 09/23/22 Olegario Juarez MD [address] [facility] [address] [place] [address] Consulting Physician Radiation Oncology 10/29/2207/05 documented as of this encounter
--- OUTSIDE RECORDS SUMMARY | 2024-07-27 06:52 | XMS_ITS | Encounter Summary ---
Author Organization [facility] Address [address] [place] [address] Care Team Providers Care Technical Support Assistant Name Role Phone Manjit Gorman MD Primary Care Provider [phone] Olegario Juarez MD Unavailable [phone] Reason for Referral * Imaging (Routine) - Closed Specialty Diagnoses / Procedures Referred By Contac t Referred To Contact Radiology Diagnoses Cancer of base of tongue (CMS/HCC) Procedures CT Soft Tissue Neck w IV Contrast Germaine Alejandro MD [address] [address] Phone: tel: fax: Referral ID Status Reason Start Date Expiration Date Visits Re quested Visits Authorized Closed 07/11/2023 01/09/2025 1 1 * Imaging (Routine) - Closed Specialty Diagnoses / Procedures Referred By Contac t Referred To Contact Radiology Diagnoses Cancer of base of tongue (CMS/HCC) Procedures CT Chest w IV Contrast Germaine Alejandro MD [address] [address] Phone: tel: fax: Referral ID Status Reason Start Date Expiration Date Visits Re quested Visits Authorized Closed 07/11/2023 01/09/2025 1 1 Reason for Visit * Reason Comments Follow-up Encounter Details Date Type Department Care Team (Late st Contact Info) Description 07/13/2023 3:40 PM EST Office Visit [facility] Res[facility] 800 [facility], [address]nd [place] [address] Germaine Alejandro MD 800 [facility] [address] [place] [address] Cancer of base of tongue (CMS/HCC) [...] Sign Reading Time Taken Comments Blood Pressure 145/79 07/13/2023 3:38 PM EST Pulse 82 07/13/2023 3:38 PM EST Temperature 36.7 ??C (98 ??F) 07/13/2023 3:38 PM EST Respiratory Rate 16 07/13/2023 3:38 PM EST Oxygen Saturation 100% 07/13/2023 3:38 PM EST Inhaled Oxygen Concentration - - Weight 74.7 kg (164 lb 10.9 oz) 07/13/2023 3:38 PM EST Height 188 cm (6' 2.02 ) 07/13/2023 3:38 PM EST Body Mass Index 21.14 07/13/2023 3:38 PM EST documented in this encounter Miscellaneous Notes * Progress Notes - Germaine Alejandro MD - 07/13/2023 3:40 PM EST MEDICAL ONCOLOGY FOLLOW-UP NOTE Patient Information Patient Name: Erick Sierra Date of : 1950 REFERRING PHYSICIAN: Manjit Gorman MD Encounter Date: 07/13/2023 Treatment Diagnosis: Cancer Staging Cancer of base [...] after treatment of head and neck cancer. He feels well and is eating well, he has no other new symptoms. 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 CT Chest 10/21/22 showed no metastatic disease. [...] chills, nausea, vomiting, dry mouth, throat pain, shortness of breath, cough, sputum production. Problem List and Medications Reviewed in this encounter by me personally Objective Performance Status 0: Fully active, able to carry on all pre-disease performance without restriction Blood pressure (!) 145/79, pulse 82, temperature 36.7 ??C (98 ??F), temperature source Oral, resp. rate 16, height 1.88 m (6' 2.02 ), weight 74.7 kg (164 lb 10.9 oz), SpO2 100 %. EXAM Physical Exam [...] cancer related drug toxicity and treatment related penitentiary toxicity CBC WBC 3.98 Hgb 13.1 PLT 249 HCT 40.4 Lab Results Component Value Date NEUTROABS 2.85 07/10/2023 BMPL Na 138 Cl 103 BUN 25 Gluc 88 K 4.0 Co2 26 Creat 1.20 LIVER FUNCTION TESTING Tot Prot 6.8 AST 20 Tot bili 0.5 ALT 20 Alkphos 59 Ca 9.5 Mg 1.8 Lab Results Component Value Date TSH 3.54 07/10/2023 RADIOLOGY: I independently visualized the recent imaging below based on the patient's symptoms and oncologic history. CT Soft Tissue Neck w IV Contrast Result Date: 07/10/2023 Impression: Posttreatment changes of the neck. No new enhancing mass of the pharynx or larynx is seen. No significant cervical adenopathy is present. CRITICAL RESULT: No. COMMUNICATION: Per this written report. Drafted by Nely Gale MD on 07/10/2023 8:14 PM Final report signed by Nely Gale MD on 07/10/2023 8:30 PM Assessment/Plan 1. Cancer management : Erick Sierra is a 72 y.o. male with Cancer Staging Cancer of base of tongue (CMS/HCC), Staging form: Pharynx - HPV-Mediated Oropharynx, AJCC 8th Edition, Clinical: Stage I with metastasis to lymph nodes. - Squamous cancer of BOT s/p Cisplatin [...] prior systemic cancer treatment - RTC in 3M with labs/scans 2. Dysphagia Advancing diet as tolerated 3. Monitoring for appearance of hypothyroidism - TSH WNL on 07/10/23 - this will be monitored closely following radiation to the neck Germaine Alejandro MD Orders Placed This Encounter Procedures CT Chest w IV Contrast CT Soft Tissue Neck w IV Contrast Thyroid Stimulating Hormone, Plasma CBC and Differential Comprehensive Metabolic Panel, Plasma documented in this encounter Plan of Treatment Upcoming Encounters Date Type Department Care Team ([facility] st Contact Info) Description 10/17/2024 8:00 AM EST Clinical Support [facility] Head[facility] Neck [facility] Respiratory [address] [address] 10/17/2024 9:00 AM EST Appointment [facility] PET Scan [address] [place] [address] 10/17/2024 10:00 AM EST Appointment [facility] PET Scan 800 [place] [address] 10/17/2024 11:00 AM EST Office Visit [facility] Head[facility] Neck [facility] Respiratory [address] [address] Juan Pablo Cee MD [address] [facility] [address] [place] [address] 10/17/2024 1:00 PM EST Clinical Support [facility] Head[facility] Neck [facility] Respiratory [address] [address] 10/17/2024 2:20 PM EST Appointment [facility] [address] [place] [address] 10/20/2024 3:30 PM EST Office Visit [facility] Head[facility] Neck [facility] Respiratory [address] [address] Germaine Alejandro MD [facility] [address] [place] [address] documented as of this encounter Results * [...] error, please notify the sender immediately at [phone] and permanently delete the original report and destroy any copies or printouts. Narrative 10/15/2023 4:11 PM EST [facility] ? - Phone Outpatient NAME: Erick Sierra ?? DATE OF EXAM: 10/13/2023 Patient No: ??[id number] Physician: ??Javon^Germaine Date of : ??1950 Examination: [...] Sierra DATE OF EXAM: 10/13/2023 Patient No: [id number] Physician: Radu Date of : 1950 Examination: [...] in error, pleasenotify the sender immediately at [phone] and permanently delete theoriginal report and destroy [...] lt * (ABNORMAL) Comprehensive Metabolic Panel, Plasma (10/13/2023 11:53 AM EST) Glucose, Plasma 89 74 - 99 mg/dL 10/13/2023 12:46 PM EST [facility] BUN, Plasma 28(H) 8 - 23 mg/dL 10/13/2023 12:46 PM EST [facility] Creatinine, Plasma 1.25 0.80 - 1.30 mg/dL 10/13/2023 12:46 PM EST [facility] BUN/Creatinine Ratio 22 10/13/2023 12:46 PM EST [facility] Sodium, Plasma 143 136 - 145 mmol/L 10/13/2023 12:46 PM EST [facility] Potassium, Plasma 4.2 3.7 - 4.8 mmol/L 10/13/2023 12:46 PM EST [facility] Chloride, Plasma 107 97 - 107 mmol/L 10/13/2023 12:46 PM EST [facility] CO2, Plasma 25 22 - 29 mmol/L 10/13/2023 12:46 PM EST [facility] Anion Gap 11 6 - 16 mmol/L 10/13/2023 12:46 PM EST [facility] Total Calcium, Plasma 9.5 8.9 - 10.2 mg/dL 10/13/2023 12:46 PM EST [facility] Total Protein 6.8 6.3 - 7.9 g/dL 10/13/2023 12:46 PM EST [facility] Albumin, Plasma 4.4 3.5 - 5.2 g/dL 10/13/2023 12:46 PM EST [facility] AST, Plasma 25 10 - 50 U/L 10/13/2023 12:46 PM EST [facility] Comment:Hemolyzed, result ma y be falsely increased. ALT, Plasma 22 10 - 50 U/L 10/13/2023 12:46 PM EST [facility] Alkaline Phosphatase, Plasma 60 40 - 115 U/L 10/13/2023 12:46 PM EST [facility] Total Bilirubin, Plasma 0.3 0.2 - 1.1 mg/dL 10/13/2023 12:46 PM EST [facility] eGFRcr 60.8 mL/min/1.7 3m*2 10/13/2023 12:46 PM EST [facility] Comment:Reported eGFRcr in m L/min/1.73m2 is based the CKD-EPI 2020 equation that does not use a race coefficient. Blood Venous blood specimen / Unknown Venipuncture / Unknown 10/13/2023 11:53 AM EST 10/13/2023 12:09 PM EST Germaine Alejandro MD LAB BLOOD ORDERABLES Final R esult [facility] [address] [place] [address] * (ABNORMAL) CBC and Differential (10/13/2023 11:53 AM EST) WBC Count 4.65 3.70 - 10.30 10*3/uL LAB HEMATOLOGY METHOD 10/13/2023 12:18 PM EST [facility] RBC Count 4.29(L) 4.60 - 6.10 10*6/uL LAB HEMATOLOGY METHOD 10/13/2023 12:18 PM EST [facility] HGB 13.2(L) 13.7 - 17.5 g/dL LAB HEMATOLOGY METHOD 10/13/2023 12:18 PM EST [facility] HCT 40.0 40.0 - 51.0 % LAB HEMATOLOGY METHOD 10/13/2023 12:18 PM EST [facility] Platelet Count 247 155 - 369 10*3/uL LAB HEMATOLOGY METHOD 10/13/2023 12:18 PM EST [facility] MCV 93 79 - 98 fL LAB HEMATOLOGY METHOD 10/13/2023 12:18 PM EST [facility] MCH 30.8 26.0 - 32.0 pg LAB HEMATOLOGY METHOD 10/13/2023 12:18 PM EST [facility] MCHC 33.0 30.7 - 35.5 g/dL LAB HEMATOLOGY METHOD 10/13/2023 12:18 PM EST [facility] RDW 13.1 11.5 - 14.5 % LAB HEMATOLOGY METHOD 10/13/2023 12:18 PM EST [facility] MPV 8.7(L) 8.8 - 12.5 fL LAB HEMATOLOGY METHOD 10/13/2023 12:18 PM EST [facility] nRBC 0.0 <=0.0 per 100 WBCs LAB HEMATOLOGY METHOD 10/13/2023 12:18 PM EST [facility] Differential Type Automated LAB HEMATOLOGY METHOD 10/13/2023 12:18 PM EST [facility] Neutrophils % 75.0 % LAB HEMATOLOGY METHOD 10/13/2023 12:18 PM EST [facility] Lymphocytes % 11.0 % LAB HEMATOLOGY METHOD 10/13/2023 12:18 PM EST [facility] Monocytes % 11.0 % LAB HEMATOLOGY METHOD 10/13/2023 12:18 PM EST [facility] Eosinophils % 2.0 % LAB HEMATOLOGY METHOD 10/13/2023 12:18 PM [facility] Basophils % 1.0 % LAB HEMATOLOGY METHOD 10/13/2023 12:18 PM [facility] Immature Granulocytes % 0.0 % LAB HEMATOLOGY METHOD 10/13/2023 12:18 PM [facility] Neutrophils Absolute 3.51 1.60 - 6.10 10*3/uL LAB HEMATOLOGY METHOD 10/13/2023 12:18 PM [facility] Lymphocytes Absolute 0.50(L) 1.20 - 3.90 10*3/uL LAB HEMATOLOGY METHOD 10/13/2023 12:18 PM [facility] Monocytes Absolute 0.52 0.30 - 0.90 10*3/uL LAB HEMATOLOGY METHOD 10/13/2023 12:18 PM EST [facility] Eosinophils Absolute 0.08 0.00 - 0.50 10*3/uL LAB HEMATOLOGY METHOD 10/13/2023 12:18 PM [facility] Basophils Absolute 0.03 0.00 - 0.10 10*3/uL LAB HEMATOLOGY METHOD 10/13/2023 12:18 PM [facility] Immature Granulocytes Absolute 0.01 0.00 - 0.06 10*3/uL LAB HEMATOLOGY METHOD 10/13/2023 12:18 PM [facility] Blood Venous blood specimen / Unknown Venipuncture / Unknown 10/13/2023 11:53 AM EST 10/13/2023 12:09 PM EST Narrative [facility] - 10/13/2023 12:18 PM EST Therapeutic decision making should be based on absolute values, rather than percentages. Germaine Alejandro MD LAB BLOOD ORDERABLES Final R esult [facility] [address] [place] [address] * Thyroid Stimulating Hormone, Plasma (10/13/2023 11:53 AM EST) Thyroid Stimulating Hormone, Plasma 3.51 0.40 - 4.20 uIU/mL 10/13/2023 12:46 PM [facility] Blood Venous blood specimen / Unknown Venipuncture / Unknown 10/13/2023 11:53 AM EST 10/13/2023 12:09 PM EST Germaine Alejandro MD LAB BLOOD ORDERABLES Final R esult [facility] [address] [place] [address] documented in this encounter Visit Diagnoses Diagnosis Cancer of base of tongue (CMS/HCC)- Primary Malignant neoplasm of base of tongue 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 documented in this encounter Additional Health Concerns Assessment Noted Time A fall risk assessment has been complete d for the patient 07/13/2023 3:38 PM EST documented as of this encounter Care Teams Technical Support Assistant Relationship Specialty Start Date End Date Manjit Gorman MD [address] [place] [address] PCP - General 09/23/22 Olegario Juarez MD [address] [place] [phone] Consulting Physician Radiation Oncology 10/29/2207/05 documented as of this encounter
--- OUTSIDE RECORDS SUMMARY | 2024-07-27 06:52 | XMS_ITS | Encounter Summary ---
Author Organization [facility] Address [address] [place], [place] [id number] Care Team Providers Care Oracle Dba Name Role Phone Manjit Gorman MD Primary Care Provider [phone] Olegario Juarez MD Unavailable [phone] Encounter Details Date Type Department Care Team (Latest Contact Info) Description 05/12/2023 Travel Social History Tobacco Use Types Packs/Day [...] [facility] [address] [address] 10/17/2024 9:00 AM EST Appointment [facility] PET Scan [address] [place] [address] 10/17/2024 10:00 AM EST Appointment [facility] PET Scan [address] [place] [address] 10/17/2024 11:00 AM EST Office Visit [facility] Res[facility] [address] [phone] Juan Pablo Cee MD [address] [facility] [address] [place] [address] 10/17/2024 1:00 PM EST Clinical Support [facility] Head[facility] Neck [facility] Respiratory [address] [place] [address] 10/17/2024 2:20 PM EST Appointment [facility] [address] [place] [address] 10/20/2024 3:30 PM EST Office Visit [facility] Head[facility] Neck [facility] Respiratory 800 [facility], [address]nd [place] [address] Germaine Alejandro MD [address] [place] [phone] documented as of this encounter Visit Diagnoses Not on filedocumented in this encounter Additional Health Concerns Assessment Noted Time A fall risk assessment has been complete d for the patient 04/09/2023 8:56 AM EDT documented as of this encounter Care Teams Oracle Dba Relationship Specialty Start Date End Date Manjit Gorman MD [address] [place], [place] [phone] PCP - General 09/23/22 Olegario Juarez MD [address] [place] [address] Consulting Physician Radiation Oncology 10/29/2207/05 documented as of this encounter
--- OUTSIDE RECORDS SUMMARY | 2024-07-27 06:52 | XMS_ITS | Encounter Summary ---
Author Organization [facility] Address [address] [place], [place] [address] Care Team Providers Care Film Spooler Name Role Phone Manjit Gorman MD Primary Care Provider Olegario Juarez MD Unavailable [phone] Encounter Details Date Type Department Care Team (Latest Contact Info) Description 07/10/2023 Travel Social History Tobacco Use Types Packs/Day [...] [facility] [address] [address] 10/17/2024 9:00 AM EST Appointment [facility] PET Scan [address] [place] [address] 10/17/2024 10:00 AM EST Appointment [facility] PET Scan [address] [place] [address] 10/17/2024 11:00 AM EST Office Visit [facility] Head[facility] Neck [facility] Res[facility] [address] [phone] Juan Pablo Cee MD [address] [facility] [address] [place] [address] 10/17/2024 1:00 PM EST Clinical Support [facility] Head[facility] Neck [facility] Respiratory [address] [place] [address] 10/17/2024 2:20 PM EST Appointment [facility] [address] [place] [address] 10/20/2024 3:30 PM EST Office Visit [facility] Head[facility] Neck & Respiratory 800 [facility], 2nd [place] [address] Germaine Alejandro MD [address] [place] [address] documented as of this encounter Visit Diagnoses Not on filedocumented in this encounter Additional Health Concerns Assessment Noted Time A fall risk assessment has been complete d for the patient 07/10/2023 1:12 PM EDT documented as of this encounter Care Teams Film Spooler Relationship Specialty Start Date End Date Manjit Gorman MD [address] [place], [place] [phone] PCP - General 09/23/22 Olegario Juarez MD [address] [place] [address] Consulting Physician Radiation Oncology 10/29/2207/05 documented as of this encounter
--- OUTSIDE RECORDS SUMMARY | 2024-07-27 06:52 | XMS_ITS | Encounter Summary ---
Author Organization [facility] Address [address] [place] [address] Care Team Providers Care Political Research Scientist Name Role Phone Manjit Gorman MD Primary Care Provider [phone] Olegario Juarez MD Unavailable [phone] Reason for Visit * Reason Comments Follow-up Encounter Details Date Type Department Care Team (Latest Contact Info) Description 07/10/2023 12:14 PM EDT - 07/10/2023 11:59 PM EDT Hospital Encounter [facility] Radiation [address] [place] [address] Eduardo Johnston MD [address] [place] [address] Cancer of base of tongue [...] Sign Reading Time Taken Comments Blood Pressure 143/71 07/10/2023 1:11 PM EDT Pulse 91 07/10/2023 1:11 PM EDT Temperature - - Respiratory Rate 18 07/10/2023 1:11 PM EDT Oxygen Saturation 99% 07/10/2023 1:11 PM EDT Inhaled Oxygen Concentration - - Weight 74.8 kg (164 lb 14.5 oz) 07/10/2023 1:11 PM EDT Height - - Body Mass Index 21.17 03/31/2023 2:29 PM EDT documented in this [...] Notes * Progress Notes - Beryl Garrett, RUBBER TILE FLOOR LAYER, DNP - 07/10/2023 1:30 PM EDT PSYCHIATRIC RADIATION MEDICINE RADIATION ONCOLOGY FOLLOW-UP NOTE PATIENT NAME: Erick Sierra : 1950 DATE OF SERVICE: 07/10/2023 Erick Sierra is a 72 y.o. male [...] 72 y.o. 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 PET/CT 10/21/22 demonstrated a hypermetabolic RIGHT BOT mass and hypermetabolic RIGHT level IIA and IIB nodes. Patient completed radiation treatment as described above. Presents to clinic today for 3-month follow up visit. INTERVAL HISTORY: States that he feeling pretty good; much better than I was during radiation . Noc/o's of pain. Denies sore throat, ulcers in mouth or eating difficulty. Able to swallow without difficulty. Does report that if food not chewed up good can be difficult to swallow (meat and bread), denies aspiration. Continues with mouth dryness and altered taste. Maintaining weight though expresses concern that he is not at pre-radiation weight. He is able to eat. Has seen a compliance advisor for bilateral hearing loss is getting hearing aides this month. Recent, dental fillings x 3 bottom left on 07/07/23. REVIEW OF SYSTEMS: Review of Systems Constitutional: Negative for appetite change, fatigue, fever and unexpected weight change. Taste changes- things taste strange HENT: Positive for hearing loss and trouble swallowing (If not chewing food adequately). Negative for lump/mass, mouth sores and sore throat. Getting hearing aides this month. MEDICATIONS: Current Outpatient Medications Medication Sig amLODIPine-benazepril [...] if applicable PHYSICAL EXAM: Visit Vitals BP (!) 143/71 Pulse 91 Wt 74.8 kg (164 lb 14.5 oz) SpO2 99% BMI 21.17 kg/m?? Tobacco Use: Low Risk (07/10/2023) Patient History Smoking Tobacco Use: Never Smokeless Tobacco Use: Never Passive Exposure: Not on file Physical Exam Vitals reviewed. Constitutional: General: He is not in acute distress. Appearance: Normal appearance. He is not ill-appearing. HENT: Mouth/Throat: Mouth: Mucous membranes are dry. No oral lesions. Dentition: No gum lesions. Pharynx: Oropharynx is clear. No oropharyngeal exudate. Comments: Scattered white papillae on tongue. Neck: Trachea: No tracheal deviation. Pulmonary: Effort: Pulmonary effort is normal. No respiratory distress. Musculoskeletal: General: No swelling. Cervical back: Rigidity (baseline- decrease ROM to left reports present prior to RT) present. No edema or tenderness. Lymphadenopathy: Cervical: No cervical adenopathy. Skin: General: Skin is warm and dry. Findings: No rash. Neurological: Mental Status: He is alert and [...] IMAGING: The following radiologic report was reviewed. Pending CT Soft Tissue Neck w IV Contrast 03/31/2023 PET/CT FDG Skull Base To Mid Thigh Narrative CLINICAL INDICATION: Squamous cell carcinoma of the [...] scanner: Siemens Biograph 40 mCT. PET/CT acquisition: Umxpyz-vi-oza-thighs, plus magnification (zoomed) neck. Standardized uptake value (SUV): Corrected for body weight only. CT: Low-dose, htw-ixtqnt-duax, without intravenous contrast. TOTAL DLP (Dose Length [...] thoracolumbar scoliosis. No suspicious soft tissue foci. Impression 1. Near-complete response to therapy with markedly decreasing in FDG activity and size of the rightbase tongue mass with small residual FDG uptake and thickening. 2. Resolution of FDG avid right cervical lymphadenopathy. 3. Slight decrease in FDG avidity of right lung cluster peribronchial nodularity is consistent withpost inflammation/infection. CRITICAL RESULT: No. COMMUNICATION: Per this written report. By electronically signing this report, I, the attending physician, attest that I have personally reviewed the images/data for the above examination(s) and agree with the final edited report. Drafted by Jac Alcantara MD on 03/31/2023 2:50 PM Final report signed by Patricia Ribera MD on 03/31/2023 4:25 PM ASSESSMENT AND PLAN: Erick Sierra is a 72 y.o. 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 PET/CT 10/21/22 demonstrated a hypermetabolic RIGHT BOT mass and hypermetabolic RIGHT level IIA and IIB nodes. Patient completed radiation treatment as described above. Presents to clinic today for 3-month follow up visit. Stable, post-radiation presentation today. Encouraged to try [place] instant breakfast to help with calorie intake and weight ; warning coordination meteorologist consult declined. Continue neck exercises Discussed need to keep mouth moist with water po and chewing up food completely. RTC RAD MED in 4 months Future Appointments Date Time Provider Department Center 07/13/2023 3:40 PM Germaine Alejandro MD [facility] 08/03/2023 10:00 AM Juan Pablo Cee MD [facility] All of his questions were answered to his satisfaction. Mr. Sierra has been given a printout regarding future appointments and the plan of care. He has our contact information should he have questionsor concerns. A total of 45 minutes were spent preparing, performing an examination, counseling, educating the patient, and care coordination with more than 25 minutes of that time used for counseling the patient and coordination of care. Thank you for allowing us to take part in the care of Erick Sierra. Please do not hesitate to contact our clinic if you have any questions or concerns. Beryl Garrett DNP, RUBBER TILE FLOOR LAYER, BUILDINGS AND GROUNDS COORDINATOR-C [facility] Radiation Medicine [facility] Department of Radiation Oncology Cosigned by Eduardo Johnston MD at 07/13/2023 7:36 PM EST Associated attestation - Eduardo Johnston MD - 07/13/2023 7:36 PM EST I attest to being involved in providing substantive time in patient care. Patient examined and edits made. documented in this encounter Plan of Treatment Upcoming Encounters Date Type Department Care Team ([facility] st Contact Info) Description 10/17/2024 8:00 AM EST Clinical Support [facility] Head, Neck & Respiratory [address] [address] 10/17/2024 9:00 AM EST Appointment [facility] PET Scan 800 [place] [address] 10/17/2024 10:00 AM EST Appointment [facility] PET Scan [address] [place] [address] 10/17/2024 11:00 AM EST Office Visit [facility] Head, Neck & Respiratory [address] [phone] Juan Pablo Cee MD [address] [facility] [address] [place] [address] 10/17/2024 1:00 PM EST Clinical Support [facility] Head, Neck & Respiratory [address] [address] 10/17/2024 2:20 PM EST Appointment [facility] G Radiology [address] [place] [id number] 10/20/2024 3:30 PM EST Office Visit [facility] Head, Neck & Respiratory [address] [address] Germaine Alejandro MD 800 [facility] Jyothi Junior [facility] [address] [place] [address] documented as of this encounter Visit Diagnoses Diagnosis Cancer of base of tongue (CMS/HCC)- Primary Malignant neoplasm of base of tongue documented in this encounter Additional Health Concerns Assessment Noted Time A fall risk assessment has been complete d for the patient 07/10/2023 1:12 PM EDT documented as of this encounter Care Teams Political Research Scientist Relationship Specialty Start Date End Date Manjit Gorman MD [address] [place] [address] PCP - General 09/23/22 Olegario Juarez MD [address] [address] Consulting Physician Radiation Oncology 10/29/2207/05 documented as of this encounter
--- OUTSIDE RECORDS SUMMARY | 2024-07-27 06:52 | XMS_ITS | Encounter Summary ---
Author Organization [facility] Address [address] [place] [address] Care Team Providers Care Surveillance Supervisor Name Role Phone Manjit Gorman MD Primary Care Provider [phone] Olegario Juarez MD Unavailable [phone] Reason for Visit * Reason Comments Labs Only Encounter Details Date Type Department Care Team (Latest Contact Info) Description 02/19/2023 12:15 PM EDT Clinical Support [facility] Head, Neck & Respiratory 800 [facility], [address] [place] [address] Cancer of base of tongue (CMS/HCC); Research subject Social History Tobacco Use Types Packs/Day Years [...] [facility] Head, Neck & Respiratory 800 [facility], [address]nd [place] [address] 10/17/2024 9:00 AM EST Appointment [facility] PET Scan 800 [place] [address] 10/17/2024 10:00 AM EST Appointment [facility] PET Scan 800 [place] [address] 10/17/2024 11:00 AM EST Office Visit [facility] Head, Neck & Respiratory 800 [facility], [address] [place] [address] Juan Pablo Cee MD [address] [facility] [address] [place] [address] 10/17/2024 1:00 PM EST Clinical Support [facility] Head, Neck & Respiratory 800 [facility], [address] [place] [address] 10/17/2024 2:20 PM EST Appointment [facility] Radiology [address] [place] [address] 10/20/2024 3:30 PM EST Office Visit [facility] Head, Neck & Respiratory 800 [facility], [address] [place] [address] Germaine Alejandro MD 800 [facility] [address] [place] [phone] documented as of this encounter Procedures Procedure Name Priority Date/Time Associated Diagnosis Comments CBC WITH AUTO DIFFERENTIAL Routine 02/19/2023 12:50 PM EDT Cancer of base of tongue (CMS/HCC) TSH Routine 02/19/2023 12:50 PM EDT Cancer of base of tongue (CMS/HCC) COMPREHENSIVE METABOLIC PANEL, PLASMA Routine 02/19/2023 12:50 PM EDT Cancer of base of tongue (CMS/HCC) documented in this encounter Results * Thyroid Stimulating Hormone, Plasma (02/19/2023 12:50 PM EDT) Thyroid Stimulating Hormone, Plasma 1.82 0.40 - 4.20 uIU/mL 02/19/2023 1:43 PM EDT [facility] Blood Venous blood specimen / Unknown Venipuncture / Unknown 02/19/2023 12:50 PM EDT 02/19/2023 1:05 PM EDT Germaine Alejandro MD LAB BLOOD ORDERABLES Final R esult [facility] [address] [place] [address] * (ABNORMAL) Comprehensive Metabolic Panel, Plasma (02/19/2023 12:50 PM EDT) [facility] Glucose, Plasma 87 74 - 99 mg/dL 02/19/2023 1:43 PM EDT [facility] BUN, Plasma 20 8 - 23 mg/dL 02/19/2023 1:43 PM EDT [facility] Creatinine, Plasma 1.07 0.80 - 1.30 mg/dL 02/19/2023 1:43 PM EDT [facility] BUN/Creatinine Ratio 19 02/19/2023 1:43 PM EDT [facility] Sodium, Plasma 139 136 - 145 mmol/L 02/19/2023 1:43 PM EDT [facility] Potassium, Plasma 4.4 3.7 - 4.8 mmol/L 02/19/2023 1:43 PM EDT [facility] Chloride, Plasma 104 97 - 107 mmol/L 02/19/2023 1:43 PM EDT [facility] CO2, Plasma 24 22 - 29 mmol/L 02/19/2023 1:43 PM EDT [facility] Anion Gap 11 6 - 16 mmol/L 02/19/2023 1:43 PM EDT [facility] Total Calcium, Plasma 9.1 8.9 - 10.2 mg/dL 02/19/2023 1:43 PM EDT [facility] Total Protein 6.2(L) 6.3 - 7.9 g/dL 02/19/2023 1:43 PM EDT [facility] Albumin, Plasma 4.1 3.5 - 5.2 g/dL 02/19/2023 1:43 PM EDT [facility] AST, Plasma 17(L) 19 - 48 U/L 02/19/2023 1:43 PM EDT [facility] ALT, Plasma 12 11 - 41 U/L 02/19/2023 1:43 PM EDT [facility] Alkaline Phosphatase, Plasma 55 40 - 115 U/L 02/19/2023 1:43 PM EDT [facility] Total Bilirubin, Plasma 0.4 0.2 - 1.1 mg/dL 02/19/2023 1:43 PM EDT [facility] eGFRcr 73.7 mL/min/1.7 3m*2 02/19/2023 1:43 PM EDT [facility] Comment: Reported eGFRcr in mL/min/1.73m2 is based the CKD-EPI 2021 equation that does not use a race coefficient. Effective 04/02/22 our laboratory changed the eGFR calculation to the CKD-EPI 2021 equation from the previously reported eGFR, based on the MDRD equation. ??For comparisons between the two equations, please see laboratory website: ??[email or web address] Blood Venous blood specimen / Unknown Venipuncture / Unknown 02/19/2023 12:50 PM EDT 02/19/2023 1:05 PM EDT Germaine Alejandro MD LAB BLOOD ORDERABLES Final R esult [facility] [address] [place] [address] * (ABNORMAL) CBC and Differential (02/19/2023 12:50 PM EDT) WBC Count 5.08 3.70 - 10.30 10*3/uL LAB HEMATOLOGY METHOD 02/19/2023 1:12 PM EDT [facility] RBC Count 3.61(L) 4.60 - 6.10 10*6/uL LAB HEMATOLOGY METHOD 02/19/2023 1:12 PM EDT [facility] HGB 11.7(L) 13.7 - 17.5 g/dL LAB HEMATOLOGY METHOD 02/19/2023 1:12 PM EDT [facility] HCT 35.0(L) 40.0 - 51.0 % LAB HEMATOLOGY METHOD 02/19/2023 1:12 PM EDT [facility] Platelet Count 247 155 - 369 10*3/uL LAB HEMATOLOGY METHOD 02/19/2023 1:12 PM EDT [facility] MCV 97 79 - 98 fL LAB HEMATOLOGY METHOD 02/19/2023 1:12 PM EDT [facility] MCH 32.4(H) 26.0 - 32.0 pg LAB HEMATOLOGY METHOD 02/19/2023 1:12 PM EDT [facility] MCHC 33.4 30.7 - 35.5 g/dL LAB HEMATOLOGY METHOD 02/19/2023 1:12 PM EDT [facility] RDW 14.8(H) 11.5 - 14.5 % LAB HEMATOLOGY METHOD 02/19/2023 1:12 PM EDT [facility] MPV 8.8 8.8 - 12.5 fL LAB HEMATOLOGY METHOD 02/19/2023 1:12 PM EDT [facility] nRBC 0.0 <=0.0 per 100 WBCs LAB HEMATOLOGY METHOD 02/19/2023 1:12 PM EDT [facility] Differential Type Automated LAB HEMATOLOGY METHOD 02/19/2023 1:12 PM EDT [facility] Neutrophils % 74.0 % LAB HEMATOLOGY METHOD 02/19/2023 1:12 PM EDT [facility] Lymphocytes % 9.0 % LAB HEMATOLOGY METHOD 02/19/2023 1:12 PM EDT [facility] Monocytes % 14.0 % LAB HEMATOLOGY METHOD 02/19/2023 1:12 PM EDT [facility] Eosinophils % 2.0 % LAB HEMATOLOGY METHOD 02/19/2023 1:12 PM EDT [facility] Basophils % 1.0 % LAB HEMATOLOGY METHOD 02/19/2023 1:12 PM EDT [facility] Immature Granulocytes % 0.0 % LAB HEMATOLOGY METHOD 02/19/2023 1:12 PM EDT [facility] Neutrophils Absolute 3.75 1.60 - 6.10 10*3/uL LAB HEMATOLOGY METHOD 02/19/2023 1:12 PM EDT [facility] Lymphocytes Absolute 0.45(L) 1.20 - 3.90 10*3/uL LAB HEMATOLOGY METHOD 02/19/2023 1:12 PM EDT [facility] Monocytes Absolute 0.70 0.30 - 0.90 10*3/uL LAB HEMATOLOGY METHOD 02/19/2023 1:12 PM EDT [facility] Eosinophils Absolute 0.11 0.00 - 0.50 10*3/uL LAB HEMATOLOGY METHOD 02/19/2023 1:12 PM EDT [facility] Basophils Absolute 0.05 0.00 - 0.10 10*3/uL LAB HEMATOLOGY METHOD 02/19/2023 1:12 PM EDT [facility] Immature Granulocytes Absolute 0.02 0.00 - 0.06 10*3/uL LAB HEMATOLOGY METHOD 02/19/2023 1:12 PM EDT [facility] Blood Venous blood specimen / Unknown Venipuncture / Unknown 02/19/2023 12:50 PM EDT 02/19/2023 1:04 PM EDT Narrative [facility] - 02/19/2023 1:12 PM EDT Therapeutic decision making should be based on absolute values, rather than percentages. 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
--- OUTSIDE RECORDS SUMMARY | 2024-07-27 06:52 | XMS_ITS | Encounter Summary ---
Author Organization [facility] Address [address] [id number] Care Team Providers Care Unit Reactor Operator Name Role Phone Manjit Gorman MD Primary Care Provider [phone] Olegario Juarez MD Unavailable Reason for Visit * Reason Comments Hearing Loss * Consultation (Routine) - Closed Specialty Diagnoses / Procedures Referred By Contac t Referred To Contact Audiology Diagnoses Cancer of base of tongue (CMS/HCC) CINV (chemotherapy-induced nausea and vomiting) Neoplasm related pain Germaine Alejandro MD 800 [facility] [address] [place] [address] Phone: tel: fax: Referral ID Status Reason Start Date Expiration Date V isits Requested Visits Authorized [id number] Closed Consult and Treat 12/25/2022 06/25/2024 1 1 Encounter Details Date Type Department Care Team (Late st Contact Info) Description 05/13/2023 8:30 AM EDT Office Visit [facility] AUDIOLOGY [address] [place] [address] Jolene Wayne, Johnathon [address] [facility] [address] [place] [address] Sensorineural hearing loss (SNHL) of both ears (Primary Dx); Cancer of base of tongue (CMS/HCC); CINV (chemotherapy-induced nausea and vomiting); Neoplasm related pain Social History Tobacco Use Types Packs/Day Years [...] encounter Miscellaneous Notes * Progress Notes - Jolene Wayne AuD - 05/13/2023 8:30 AM EDT Images from the original note were not included. AUDIOLOGIC EVALUATION Referring Provider: Germaine Alejandro MD HISTORY: Erick Sierra is a 72 y.o. male seen today for an audiologic evaluation. Today he reported significant decrease in his hearing following Cisplatin chemotherapy and head/neck radiation to treat base of tongue cancer from November to December 2022. He reported he has intermittent right sided aural pressure since finishing treatment. No other significant audiological history or changes were reported. RESULTS: Otoscopy: Clear external auditory canals LE and Occluding cerumen/debris removed by ENT prior to testing RE Tympanograms (226 Hz): Normal pressure, volume and compliance bilaterally Audiogram: Method: Conventional Audiometry Transducer: headphones Results: Mild low frequency sloping to severe high to ultra-high frequency sensorineural hearing loss bilaterally. Word Recognition: RE: 84%; Good LE: 84%; Good SRT/Audiogram Agreement: Good Reliability: Good RECOMMENDATIONS: - Hearing protection VR information provided for hearing aid assistance Jolene Diego, [facility]-A Software Product Specialist documented in this encounter Plan of Treatment Upcoming Encounters Date Type Department Care Team (Late st Contact Info) Description 10/17/2024 8:00 AM EST Clinical Support Pav CC Head, Neck & Respiratory 800 [facility], [address]nd [place] [address] 10/17/2024 9:00 AM EST Appointment [facility] PET Scan [address] [place] [address] 10/17/2024 10:00 AM EST Appointment [facility] PET Scan [address] [place] [address] 10/17/2024 11:00 AM EST Office Visit [facility] CC Head, Neck & Respiratory 800 [facility], [address] [place] [phone] Juan Pablo Cee MD [address] [facility] [address] [place] [address] 10/17/2024 1:00 PM EST Clinical Support [facility] CC Head, Neck & Respiratory [address] [address] 10/17/2024 2:20 PM EST Appointment [facility] G Radiology [address] [place] [address] 10/20/2024 3:30 PM EST Office Visit [facility] Head, Neck & Respiratory [address] [place] [address] Germaine Alejandro MD 800 [facility] [address] [place] [address] documented as of this encounter Visit Diagnoses Diagnosis Sensorineural hearing loss (SNHL) of both ears- Primary 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 CINV (chemotherapy-induced nausea and vomiting) Neoplasm related pain Neoplasm related pain (acute) (chronic) documented in this encounter Additional Health Concerns Assessment Noted Time A fall risk assessment has been complete d for the patient 04/09/2023 8:56 AM EDT documented as of this encounter Care Teams Unit Reactor Operator Relationship Specialty Start Date End Date Manjit Gorman MD [address] [place] [address] PCP - General 09/23/22 Olegario Juarez MD 800 [facility] [address] [place] [address] Consulting Physician Radiation Oncology 10/29/2207/05 documented as of this encounter
--- OUTSIDE RECORDS SUMMARY | 2024-07-27 06:52 | XMS_ITS | Encounter Summary ---
Author Organization [facility] Address [address] [place], [place] [address] Care Team Providers Care Electroencephalograph Technologist Name Role Phone Manjit Gorman MD Primary Care Provider [phone] Olegario Juarez MD Unavailable [phone] Encounter Details Date Type Department Care Team (Latest Contact Info) Description 07/13/2023 Travel Social History Tobacco Use Types Packs/Day [...] CC Head, Neck & Respiratory [address] [address] 10/17/2024 9:00 AM EST Appointment [facility] PET Scan 800 [place] [address] 10/17/2024 10:00 AM EST Appointment [facility] PET Scan [address] [place] [address] 10/17/2024 11:00 AM EST Office Visit [facility] CC Head, Neck & Respiratory [address] [address] Juan Pablo Cee MD [address] [facility] [address] [place] [address] 10/17/2024 1:00 PM EST Clinical Support Pav CC Head, Neck & Respiratory [address] [place] [address] 10/17/2024 2:20 PM EST Appointment [facility] G Radiology [address] [place] [address] 10/20/2024 3:30 PM EST Office Visit Pav CC Head, Neck & Respiratory 800 [facility], 2nd [place] [address] Germaine Alejandro MD [address] [place] [address] documented as of this encounter Visit Diagnoses Not on filedocumented in this encounter Additional Health Concerns Assessment Noted Time A fall risk assessment has been complete d for the patient 07/13/2023 3:38 PM EST documented as of this encounter Care Teams Electroencephalograph Technologist Relationship Specialty Start Date End Date Manjit Gorman MD [address] [place], [place] [id number] PCP - General 09/23/22 Olegario Juarez MD [address] [place] [address] Consulting Physician Radiation Oncology 10/29/2207/05 documented as of this encounter
--- OUTSIDE RECORDS SUMMARY | 2024-07-27 06:52 | XMS_ITS | Encounter Summary ---
Author Organization Healthcare Address [address] [id number] Care Team Providers Care Gang Knife Fish Chopper Name Role Phone Manjit Gorman MD Primary Care Provider [phone] Olegario Juarez MD Unavailable [phone] Encounter Details Date Type Department Care Team (Late st Contact Info) Description 03/31/2023 3:00 PM EDT Office Visit [facility] Res[facility] [address], [address]nd [place] [address] Juan Pablo Cee MD [address] [facility] [address] [place] [address] Cancer of base of tongue [...] Sign Reading Time Taken Comments Blood Pressure 132/76 03/31/2023 2:29 PM EDT Pulse 89 03/31/2023 2:29 PM EDT Temperature 36.6 ??C (97.9 ??F) 03/31/2023 2:29 PM ED T Respiratory Rate 16 03/31/2023 2:29 PM EDT Oxygen Saturation 99% 03/31/2023 2:29 PM EDT Inhaled Oxygen Concentration - - Weight 76.5 kg (168 lb 10.4 oz) 03/31/2023 2:29 PM EDT Height 188 cm (6' 2 ) 03/31/2023 2:29 PM EDT Body Mass Index 21.65 03/31/2023 2:29 PM EDT documented in this encounter Miscellaneous Notes * Progress Notes - Juan Pablo Cee MD - 03/31/2023 3:00 PM EDT Mr. Erick Sierra is a very pleasant 72 y.o. patient who is returning to the clinic today for his follow-up. He was last seen in my clinic on 01/20/2023 and recommended follow-up with a PET-CT scan. He has a [...] evaluated by Medical and Radiation Oncology at [facility]. He started his radiation treatment on11/11/2022 and chemotherapy on 11/14/2022. He completed his radiation on 12/30/2022. He underwent restaging CT scans of neck and chest on 02/19/2023 and they did not reveal any evidence of disease. The lymph nodes in the neck have substantially shrunk. He had a PET-CT scan [...] epistaxis, nasal congestion/obstruction or anosmia/hyposmia. He also denied dysphagia, odynophagia, dysphonia, dyspepsia, dyspnea or reflux disease. The patient's complete review of system from 03/31/23 was performed today. All systems were negative [...] of the left postauricular region. . 03/31/2023: I do not see any evidence of hypermetabolism. I independently reviewed the images of the [...] beer a day or use any illicit drugs. PHYSICAL EXAMINATION: Visit Vitals BP 132/76 (BP Location: Left arm, Patient Position: Sitting, BP Cuff Size: Adult) Pulse 89 Temp 36.6 ??C (97.9 ??F) (Oral) Ht 1.88 m (6' 2 ) Wt 76.5 kg (168 lb 10.4 oz) SpO2 99% BMI 21.65 kg/m?? General: He is a very healthy-appearing [...] any enlarged lymphadenopathy in his neck I independently reviewed the CT scans of the neck and chest from 02/19/2023 and the PET-CT scan performed today 03/31/2023. I do not see any evidence of hypermetabolism in the oropharynx or the neck. The CT scan of the chest and the PET scan are not hypermetabolic. The patient was recommended continue the follow-up with his urology team regarding his prostate cancer and I will see him back in my clinic in 2 months, sooner if has any problems or concerns. Juan Pablo Cee MD MS FACS Incendiary Powder Mixer Head & Neck Oncology Rhinology & Skull Base Surgery documented in this encounter Plan of Treatment Upcoming Encounters Date Type Department Care Team (Late st Contact Info) Description 10/17/2024 8:00 AM EST Clinical Support [facility] Res[facility] [address] [address] 10/17/2024 9:00 AM EST Appointment [facility] PET Scan 800 [place] [address] 10/17/2024 10:00 AM EST Appointment [facility] PET Scan 800 [place] [address] 10/17/2024 11:00 AM EST Office Visit [facility] Ne[facility] Res[facility] [address] [address] Juan Pablo Cee MD [address] [facility] [address] [place] [address] 10/17/2024 1:00 PM EST Clinical Support [facility] Ne[facility] Respiratory [address] [address] 10/17/2024 2:20 PM EST Appointment [facility] Radiology [address] [place] [address] 10/20/2024 3:30 PM EST Office Visit [facility] Head[facility] Neck & Respiratory 800 [facility], 2nd [place] [address] Germaine Alejandro MD 800 [facility] Jyothi Junior [facility] [address] [place] [address] documented as of this encounter Visit Diagnoses Diagnosis 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
--- OUTSIDE RECORDS SUMMARY | 2024-07-27 06:52 | XMS_ITS | Encounter Summary ---
Author Organization Healthcare Address [address] [id number] Care Team Providers Care Torpedo Shooter Name Role Phone Manjit Gorman MD Primary Care Provider [phone] Olegario Juarez MD Unavailable [phone] Reason for Visit * Imaging (Routine) - Closed Specialty Diagnoses / Procedures Referred By Contac t Referred To Contact Radiology Diagnoses Cancer of base of tongue (CMS/HCC) Procedures PET/CT FDG Skull Base To Mid Thigh Juan Pablo Cee MD [address] [facility] [address] [place] [address] Phone: tel: fax: Referral ID Status Reason Start Date Expiration Date Visits Re quested Visits Authorized [id number] Closed 01/20/2023 07/21/2024 2 2 Encounter Details Date Type Department Care Team (Latest Contact Info) Description 03/31/2023 11:36 AM EDT - 03/31/2023 11:59 PM EDT Hospital Encounter [facility] Radiology 800 [facility], [place] [address] Discharge Disposition: Home or Self Care Social [...] Upcoming Encounters Date Type Department Care Team ([facility] st Contact Info) Description 10/17/2024 8:00 AM EST Clinical Support [facility] Head[facility] Neck & Respiratory [address] [address] 10/17/2024 9:00 AM EST Appointment [facility] PET Scan 800 [place] [address] 10/17/2024 10:00 AM EST Appointment [facility] PET Scan 800 [place] [address] 10/17/2024 11:00 AM EST Office Visit [facility] Head[facility] Neck & Respiratory [address] [address] Juan Pablo Cee MD [address] [facility] [address] [place] [address] 10/17/2024 1:00 PM EST Clinical Support [facility] Head[facility] Neck [facility] Respiratory [address] [address] 10/17/2024 2:20 PM EST Appointment [facility] Radiology [address] [place] [address] 10/20/2024 3:30 PM EST Office Visit [facility] Head[facility] Neck [facility] Respiratory [address] [address] Germaine Alejandro MD 800 [facility] J[address] [place] [address] documented as of this encounter Procedures Procedure Name Priority Date/Time Associated Diagnosis Comments PET/CT FDG SKULL BASE TO MID THIGH Routine 03/31/2023 2:00 PM EDT Cancer of base of tongue (CMS/HCC) POCT GLUCOSE METER UNSOLICITED RESULTS Routine 03/31/2023 11:54 AM EDT documented in this encounter Results * POCT glucose meter (03/31/2023 11:54 AM EDT) POCT Glucose 94 74 - 99 mg/dL 03/31/2023 11:55 AM EDT [facility] Comment:Accuracy of a glucos e result obtained from a capillary whole blood specimen relies upon adequate, non-compromised capillary blood flow. If the capillary glucose result is not consistent with the patient's clinical signs and symptoms, glucose testing should be repeated with either an arterial or venous sample on the glucometer or sent to the main labortory for testing. Comment 03/31/2023 11:55 AM EDT [facility] Insulation Board Calender Operator ID Venr Ingram 03/31/2023 11:55 AM EDT [facility] Device ID [id number] 03/31/2023 11:55 AM EDT [facility] Specimen Type POC Capillary 03/31/2023 11:55 AM EDT [facility] Blood Capillary blood specimen / Unknown 03/31/2023 11:54 AM EDT 03/31/2023 11:55 AM EDT us Generic Provider Poct LAB POINT OF CARE TEST DOCKED DEVICE UNSOLICITED RESULTS Final Result [facility] [address] [place] [address] documented in this encounter Visit Diagnoses Not on filedocumented in this encounter Additional Health Concerns Assessment Noted Time A fall risk assessment has been complete d for the patient 03/31/2023 2:30 PM EDT documented as of this encounter Care Teams Torpedo Shooter Relationship Specialty Start Date End Date Manjit Gorman MD [address] [place] [address] PCP - General 09/23/22 Olegario Juarez MD [address] [address] Consulting Physician Radiation Oncology 10/29/2207/05 documented as of this encounter
--- OUTSIDE RECORDS SUMMARY | 2024-07-27 06:52 | XMS_ITS | Encounter Summary ---
Author Organization [facility] Address [address] [place], [place] [address] Care Team Providers Care Mirror Painter Name Role Phone Manjit Gorman MD Primary Care Provider [phone] Olegario Juarez MD Unavailable [phone] Reason for Referral * Imaging (Routine) - Closed Specialty Diagnoses / Procedures Referred By Terri del rosario Referred To Contact Radiology Diagnoses Cancer of base of tongue (CMS/HCC) Procedures CT Soft Tissue Neck w IV Contrast Germaine Alejandro MD [address] [address] Phone: tel: fax: Referral ID Status Reason Start Date Expiration Date Visits Re quested Visits Authorized [id number] Closed 02/25/2023 08/26/2024 1 1 Reason for Visit * Imaging (Routine) - Closed Specialty Diagnoses / Procedures Referred By Terri del rosario Referred To Contact Radiology Diagnoses Cancer of base of tongue (CMS/HCC) Procedures CT Soft Tissue Neck w IV Contrast Germaine Alejandro MD [address] [address] Phone: tel: fax: Referral ID Status Reason Start Date Expiration Date Visits Re quested Visits Authorized [id number] Closed 02/25/2023 08/26/2024 1 1 Encounter Details Date Type Department Care Team (Latest Contact Info) Description 07/10/2023 10:01 AM EDT - 07/10/2023 12:13 PM EDT Hospital Encounter [facility] Radiology [address] [place] [address] Cancer of base of tongue (CMS/HCC) Discharge [...] Everywhere. * Contrast Imaging Discharge Instructions ([place]) (Slovak) documented in this encounter Medications at Time [...] [facility] Head, Neck & Respiratory 800 [facility] 2[address] [place] [address] 10/17/2024 9:00 AM EST Appointment [facility] PET Scan 800 [place] [address] 10/17/2024 10:00 AM EST Appointment [facility] PET Scan 800 [place] [address] 10/17/2024 11:00 AM EST Office Visit [facility] Head, Neck & Respiratory 800 [facility] [address] [place] [address] Juan Pablo Cee MD [address] [facility] [address] [place] [address] 10/17/2024 1:00 PM EST Clinical Support Pav [facility] Head, Neck & Respiratory 800 [facility], 2nd [place] [address] 10/17/2024 2:20 PM EST Appointment [facility] Radiology [address] [place] [address] 10/20/2024 3:30 PM EST Office Visit Pav [facility] Head, Neck & Respiratory 800 [facility], 2nd [place] [address] Germaine Alejandro MD 800 [facility] [address] [place] [address] documented as of this encounter Procedures Procedure Name Priority Date/Time Associated Diagnosis Comments CT SOFT TISSUE NECK W IV CONTRAST Routine 07/10/2023 11:33 AM EDT Cancer of base of tongue (CMS/HCC) documented in this encounter Results * CT [...] neck cancer, assess treatment response. Per the 2222 medical oncology clinic note, the patient [...] cancer, assess treatment response. [facility], the patient has a [...] on 07/10/2023 8:30 PM Germaine Alejandro MD IMG CT PROCEDURES [...] Once in imaging, 1 dose, Starting on Thu07/10/23 at 1007, Until Thu07/10/23 at 1123, Routine, Imaging Protocol Orders Given 07/10/2023 11:23 AM EDT 85 mL documented in this encounter Additional Health Concerns Assessment Noted Time A fall risk assessment has been complete d for the patient 07/10/2023 1:12 PM EDT documented as of this encounter Care Teams Mirror Painter Relationship Specialty Start Date End Date Manjit Gorman MD [address] [place] [address] PCP - General 09/23/22 Olegario Juarez MD [address] [place] [address] Consulting Physician Radiation Oncology 10/29/2207/05 documented as of this encounter
--- OUTSIDE RECORDS SUMMARY | 2024-07-27 06:52 | XMS_ITS | Encounter Summary ---
Author Organization Healthcare Address [address] [id number] Care Team Providers Care Credit Card Interviewer Name Role Phone Manjit Gorman MD Primary Care Provider [phone] Olegario Juarez MD Unavailable [phone] Reason for Visit * Reason Comments Follow-up Encounter Details Date Type Department Care Team ([facility] Contact Info) Description 08/03/2023 10:00 AM EST Office Visit [facility] Head, Neck & Respiratory [address], [address] [place] [address] Juan Pablo Cee MD [address] [facility] [address] [place] [address] Cancer of base of tongue [...] Sign Reading Time Taken Comments Blood Pressure 149/78 08/03/2023 9:49 AM EST Pulse 80 08/03/2023 9:49 AM EST Temperature 36.5 ??C (97.7 ??F) 08/03/2023 9:49 AM ES T Respiratory Rate 18 08/03/2023 9:49 AM EST Oxygen Saturation 100% 08/03/2023 9:49 AM EST Inhaled Oxygen Concentration - - Weight 76.3 kg (168 lb 3.4 oz) 08/03/2023 9:49 A M EST Height - - Body Mass Index 21.59 07/13/2023 3:38 PM EST documented in this encounter Miscellaneous Notes * Progress Notes - Juan Pablo Cee MD - 08/03/2023 10:00 AM EST Mr. Ercik Sierra is a very pleasant 72 y.o. patient who is returning to the clinic today for his follow-up. He was last seen in my clinic on 06/01/2023 and recommended scheduled 2 month follow-up. He [...] by Medical and Radiation Oncology at [facility]. He started his radiation treatment on11/11/2022 [...] did not reveal any evidence of disease. Was evaluated by Dr. Alejandro and he has upcoming scans in October 2023. He has been doing very well since his last visit and denies any new symptoms. He continues to have some dysgeusia and xerostomia. The patient reported otalgia, denies otorrhea, hearing loss, vertigo or tinnitus. He denied having sinonasal symptoms, postnasal drip, epistaxis, nasal congestion/obstruction or anosmia/hyposmia. He also denied, odynophagia, dysphonia, dyspepsia, dyspnea or reflux disease. The patient's complete review of system from 08/03/23 was performed today. All systems were negative [...] cm . 07/10/2023: No evidence of disease - CT scan of the chest: . [...] drugs PHYSICAL EXAMINATION: Visit Vitals BP (!) 149/78 (BP Location: Left arm, Patient Position: Sitting) Pulse 80 Temp 36.5 ??C (97.7 ??F) (Oral) Wt 76.3 kg (168 lb 3.4 oz) SpO2 100% BMI 21.59 kg/m?? General: He is a very healthy-appearing [...] to palpate any enlarged lymphadenopathy in his neck. I independently reviewed the CT scan of the neck from 07/10/2023 and this does not reveal any evidence of disease in the head and neck region. He has post radiation changes without suspicious disease.I discussed those findings with the patient. He will continue to follow up with Dr. Alejandro and has upcoming scans in October 2023. I will see him back the 1st week of December 2023, sooner if he has any problems or concerns. Juan Pablo Cee MD MS FACS Tour Director Head & Neck Oncology Rhinology & Skull Base Surgery documented in this encounter Plan of Treatment Upcoming Encounters Date Type Department Care Team (Late st Contact Info) Description 10/17/2024 8:00 AM EST Clinical Support [facility] Head[facility] Neck & Respiratory [address] [address] 10/17/2024 9:00 AM EST Appointment [facility] PET Scan 800 [place] [address] 10/17/2024 10:00 AM EST Appointment [facility] PET Scan 800 [place] [address] 10/17/2024 11:00 AM EST Office Visit [facility] Head, Neck & Respiratory [address] [address] Juan Pablo Cee MD [address] [facility] [address] [place] [address] 10/17/2024 1:00 PM EST Clinical Support Pav [facility] Head, Neck & Respiratory 800 [facility], 2nd [place] [address] 10/17/2024 2:20 PM EST Appointment [facility] G Radiology [address] [place] [address] 10/20/2024 3:30 PM EST Office Visit [facility] Head, Neck & Respiratory [address] [place] [address] Germaine Alejandro MD [address] [place] [address] documented as of this encounter Visit Diagnoses Diagnosis 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 documented in this encounter Additional Health Concerns Assessment Noted Time A fall risk assessment has been complete d for the patient 08/03/2023 9:50 AM EST documented as of this encounter Care Teams Credit Card Interviewer Relationship Specialty Start Date End Date Manjit Gorman MD [address] [place] [address] PCP - General 09/23/22 Olegario Juarez MD [address] [place] [address] Consulting Physician Radiation Oncology 10/29/2207/05 documented as of this encounter
--- OUTSIDE RECORDS SUMMARY | 2024-07-27 06:52 | XMS_ITS | Encounter Summary ---
Author Organization [facility] Address [address] [place], [place] [address] Care Team Providers Care Mobility Architect Manager Name Role Phone Manjit Gorman MD Primary Care Provider [phone] Olegario Juarez MD Unavailable [phone] Encounter Details Date Type Department Care Team (Latest Contact Info) Description 02/26/2023 Travel Social History Tobacco Use Types Packs/Day [...] CC Head, Neck & Respiratory [address] [address] 10/17/2024 9:00 AM EST Appointment [facility] PET Scan 800 [place] [address] 10/17/2024 10:00 AM EST Appointment [facility] PET Scan 800 [place] [address] 10/17/2024 11:00 AM EST Office Visit Pav CC Head, Neck & Respiratory [address] [address] Juan Pablo Cee MD [address] [facility] [address] [place] [address] 10/17/2024 1:00 PM EST Clinical Support Pav CC Head, Neck & Respiratory [address] [place] [address] 10/17/2024 2:20 PM EST Appointment PAV G Radiology [address] [place] [address] 10/20/2024 3:30 PM EST Office Visit Pav CC Head, Neck & Respiratory 800 [facility], 2nd [place] [address] Germaien Alejandro MD [address] [place] [address] documented as of this encounter Visit Diagnoses Not on filedocumented in this encounter Additional Health Concerns Assessment Noted Time A fall risk assessment has been complete d for the patient 02/26/2023 2:40 PM EDT documented as of this encounter Care Teams Mobility Architect Manager Relationship Specialty Start Date End Date Manjit Gorman MD [address] [place], [place] [phone] PCP - General 09/23/22 Olegario Juarez MD [address] [place] [address] Consulting Physician Radiation Oncology 10/29/2207/05 documented as of this encounter
--- OUTSIDE RECORDS SUMMARY | 2024-07-27 06:52 | XMS_ITS | Encounter Summary ---
Author Organization Healthcare Address [address] [place] [address] Care Team Providers Care Physical Chemistry Teacher Name Role Phone Manjit Gorman MD Primary Care Provider [phone] Olegario Juarez MD Unavailable [phone] Encounter Details Date Type Department Care Team ([facility] Contact Info) Description 06/12/2023 Telephone [facility] [address] [place] [address] Pcp, No 800 [place] [address] Social History Tobacco Use Types Packs/Day Years [...] Pav CC Head, Neck & Respiratory 800 [facility], 2nd [place] [address] 10/17/2024 9:00 AM EST Appointment [facility] PET Scan 800 [place] [address] 10/17/2024 10:00 AM EST Appointment [facility] PET Scan 800 [place] [address] 10/17/2024 11:00 AM EST Office Visit Pav CC Head, Neck & Respiratory 800 [facility], [address] [place] [address] Juan Pablo Cee MD [address] [facility] [address] [place] [address] 10/17/2024 1:00 PM EST Clinical Support Pav CC Head, Neck & Respiratory 800 [facility], [address] [place] [address] 10/17/2024 2:20 PM EST Appointment PAV G Radiology [address] [place] [address] 10/20/2024 3:30 PM EST Office Visit Pav CC Head, Neck & Respiratory 800 [facility], [address] [place] [address] Germaine Alejandro MD 800 [facility] [address] [place] [address] documented as of this encounter Visit Diagnoses Not on filedocumented in this encounter Additional Health Concerns Assessment Noted Time A fall risk assessment has been complete d for the patient 06/01/2023 9:30 AM EDT documented as of this encounter Care Teams Physical Chemistry Teacher Relationship Specialty Start Date End Date Manjit Gorman MD [address] [place], [place] [phone] PCP - General 09/23/22 Olegario Juaerz MD 800 [facility] [address] [place] [address] Consulting Physician Radiation Oncology 10/29/2207/05 documented as of this encounter
--- OUTSIDE RECORDS SUMMARY | 2024-07-27 06:52 | XMS_ITS | Encounter Summary ---
Author Organization [facility] Address [address] [place], [place] [address] Care Team Providers Care Train Clerk Name Role Phone Manjit Gorman MD Primary Care Provider [phone] Olegario Juarez MD Unavailable [phone] Encounter Details Date Type Department Care Team (Latest Contact Info) Description 02/19/2023 Travel Social History Tobacco Use Types Packs/Day [...] Pav CC Head, Neck & Respiratory [address] [address] 10/17/2024 9:00 AM EST Appointment [facility] PET Scan 800 [place] [address] 10/17/2024 10:00 AM EST Appointment [facility] PET Scan [address] [place] [address] 10/17/2024 11:00 AM EST Office Visit Pav CC Head, Neck & Respiratory [address] [phone] Juan Pablo Cee MD [address] [facility] [address] [place] [address] 10/17/2024 1:00 PM EST Clinical Support Pav CC Head, Neck & Respiratory [address] [place] [address] 10/17/2024 2:20 PM EST Appointment [facility] G Radiology [address] [place] [address] 10/20/2024 3:30 PM EST Office Visit Pav CC Head, Neck & Respiratory 800 [facility], 2nd [place] [address] Germaine Alejandro MD [address] [place] [address] documented as of this encounter Visit Diagnoses Not on filedocumented in this encounter Additional Health Concerns Assessment Noted Time A fall risk assessment has been complete d for the patient 02/04/2023 3:49 PM EDT documented as of this encounter Care Teams Train Clerk Relationship Specialty Start Date End Date Manjit Gorman MD [address] [place], [place] [phone] PCP - General 09/23/22 Olegario Juarez MD [address] [place] [address] Consulting Physician Radiation Oncology 10/29/2207/05 documented as of this encounter
--- OUTSIDE RECORDS SUMMARY | 2024-07-27 06:52 | XMS_ITS | Encounter Summary ---
Author Organization [facility] Address [address] [place], [place] [address] Care Team Providers Care Drafter Seismograph Name Role Phone Manjit Gorman MD Primary Care Provider [phone] Olegario Juarez MD Unavailable [phone] Encounter Details Date Type Department Care Team (Latest Contact Info) Description 02/15/2023 Travel Social History Tobacco Use Types Packs/Day [...] CC Head, Neck & Respiratory [address] [address] 10/17/2024 9:00 AM EST Appointment [facility] PET Scan 800 [place] [address] 10/17/2024 10:00 AM EST Appointment [facility] PET Scan 800 [place] [address] 10/17/2024 11:00 AM EST Office Visit Pav CC Head, Neck & Respiratory [address] [address] Juan Pablo Cee MD [address] [facility] [address] [place] [address] 10/17/2024 1:00 PM EST Clinical Support Pav CC Head, Neck & Respiratory [address] 2nd [place] [address] 10/17/2024 2:20 PM EST Appointment PAV G Radiology [address] [place] [address] 10/20/2024 3:30 PM EST Office Visit Pav CC Head, Neck & Respiratory 800 [facility], 2nd [place] [address] Germaine Alejandro MD [address] [place] [address] documented as of this encounter Visit Diagnoses Not on filedocumented in this encounter Additional Health Concerns Assessment Noted Time A fall risk assessment has been complete d for the patient 02/04/2023 3:49 PM EDT documented as of this encounter Care Teams Drafter Seismograph Relationship Specialty Start Date End Date Manjit Gorman MD [address] [place], [place] [phone] PCP - General 09/23/22 Olegario Juarez MD [address] [place] [address] Consulting Physician Radiation Oncology 10/29/2207/05 documented as of this encounter
--- OUTSIDE RECORDS SUMMARY | 2024-07-27 06:53 | XMS_ITS | Encounter Summary ---
Author Organization [facility] Address [address] [id number] Care Team Providers Care Environmental Remediation Engineer Name Role Phone Manjit Gorman MD Primary Care Provider [phone] Olegario Juarez MD Unavailable [phone] Reason for Visit * Reason Comments OTV Encounter Details Date Type Department Care Team (Latest Contact Info) Description 12/30/2022 1:01 PM EDT - 12/30/2022 11:59 PM EDT Hospital Encounter PAV CC Radiation 800 [facility] [id number] [place] [address] Juan David Toure MD 800 [facility] [address] [place] [address] Primary cancer of oropharynx (CMS/HCC) (Primary Dx); Encounter for antineoplastic radiation therapy Discharge Disposition: Still a Patient Social History Tobacco Use Types Packs/Day Years Used Date Smoking Tobacco: Never Smokeless Tobacco: Never Tobacco Cessation:Counseling Given: Not Answered Alcohol Use Standard Drinks/Week Comments Yes 0 (1 standard drink = 0.6 oz pur e alcohol) socially PHQ-2 Answer Date Recorded Patient Health Questionnaire-2 Score 0 11/10/2022 Sex and Gender Information Value Date Recorded Sex Assigned at Not on file Legal Sex Male 10:04 PM EDT Gender Identity Not on file Sexual Orientation Not on file COVID-19 Exposure Response Date Recorded In the last 10 days, have yo u been in contact with someone who was confirmed or suspected to have Coronavirus/COVID-19? No / Unsure 12/28/2022 8:23 AM EDT documented as of this encounter Last Filed Vital Signs Vital Sign Reading Time Taken Comments Blood Pressure 132/64 12/30/2022 1:04 PM EDT Pulse 59 12/30/2022 1:04 PM EDT Temperature 36.6 ??C (97.8 ??F) 12/30/2022 1:04 PM ED T Respiratory Rate 18 12/30/2022 1:04 PM EDT Oxygen Saturation 100% 12/30/2022 1:04 PM EDT Inhaled Oxygen Concentration - - Weight 72.7 kg (160 lb 4.4 oz) 12/30/2022 1:04 P M EDT Height - - Body Mass Index 20.58 12/26/2022 9:28 AM EDT documented in this encounter Medications at Time of Discharge amLODIPine-benaz epril (Lotrel) 2.5-10 MG capsule Take 1 capsule by mouth every night. BLACK ELDERBERRY PO Take 1 tablet by mouth every night. multivitamin (Theragran-M) tablet Take 1 tablet by mouth every night. tadalafil (Cialis) 5 MG tablet TAKE 1 OR 2 TABLETS BY MOUTH DAILY NEEDED FOR ED 04/15/2022 nutritional drink (Boost Plus) liquid liquid Take 237 mL by mouth 3 (three) times a day. 13764 mL 2 11/17/2022 3 dexamethasone (Decadron) 4 MG tabletIndication s:Cancer of [...] 09/09/2022 3 documented as of this encounter Miscellaneous Notes * Progress Notes - Jose Meade MD - 12/30/2022 1:15 PM EDT Patient Name: Erick Sierra Date of : 1950 72 y.o. Encounter Date: 12/30/2022 RESEARCH STUDY PATIENT: Yes: [] No: [x] Treatment Diagnosis: Cancer Staging Cancer of base of tongue (CMS/HCC) Staging form: Pharynx - HPV-Mediated Oropharynx, AJCC 8th Edition - Clinical stage from 10/29/2022: Stage I (cT2, cN1, cM0, p16+) - Signed by Germaine Alejandro MD on 11/10/2022 No diagnosis found. Vital Signs for this encounter: BSA: 1.95 meters squared Visit Vitals BP 132/64 Pulse 59 Temp 36.6 ??C (97.8 ??F) (Oral) Resp 18 Wt 72.7 kg (160 lb 4.4 oz) SpO2 100% BMI 20.58 kg/m?? Smoking Status Never BSA 1.95 m?? Physician Notes: [x] Reviewed chart and dosimetry - Current Dose - *see signed printed weekly treatment record [x] Reviewed treatment setup - Anticipated Dose - *see signed printed weekly treatment record [x] Reviewed port films or images - Examination of patient for evaluation and progress of treatment Symptomatic; fully ambulatory Subjective Mr. Sierra presents today for his status check after completing 35/35 fractions. Patient reports dullness in his right ear. He continues to have secretions which have been increasing in volume but is using mucinex. He continues to use mouthwash #1 regularly, and we have encouraged his continued use to manage these secretions. Assessment/Plan - We will see Mr. Sierra in one month for follow up. - Continue Aquaphor, MW#1 Radiation Treatments Active Reference Points RtOropharyn+Neck Most recent treatment: Dose given: 200 cGy (on 12/30/2022) Total: Dose given: 7,000 cGy Elapsed Days: 49 Historical Plans H&N [RtOropharynx] Most recent treatment: Dose planned: 200 cGy (fraction 35 on 12/30/2022) Total: Dose planned: 7,000 cGy (35 fractions) Elapsed Days: 49 Resident signature: Physician signature: MD NURA Lam [facility] PAV CC RADIATION 800 [facility] [address] Cosigned by Juan David Toure MD at 12/30/2022 1:43 PM EDT Associated attestation - Juan David Toure MD - 12/30/2022 1:43 PM EDT Radiation Oncology Attending Attestation: I saw and independently examined the patient today. I agree with the history as noted by Dr. Jose Meade. My physical exam confirms the findings listed above. In addition, independent review of labs and radiographs, as well as review of medical records, confirm the findings noted above. I agree with the assessment and plan with the following additional comment: finish treatment. Thank you for allowing us to participate in the care of this very pleasant patient. Please do not hesitate to contact me should any questions arise. Juan David Toure MD, PhD Professor, Department of Radiation Medicine documented in this encounter Plan of Treatment Upcoming Encounters Date Type Department Care Team (Late st Contact Info) Description 10/17/2024 8:00 AM EST Clinical Support Pav CC Head, Neck & Respiratory 800 [facility], 2nd [place] [address] 10/17/2024 9:00 AM EST Appointment [facility] PET Scan 800 [place] [address] 10/17/2024 10:00 AM EST Appointment [facility] PET Scan 800 [place] [address] 10/17/2024 11:00 AM EST Office Visit Pav CC Head, Neck & Respiratory [address] , [address]nd [place] [address] Juan Pablo Cee MD [address] [facility] [address] [place] [address] 10/17/2024 1:00 PM EST Clinical Support Pav CC Head, Neck & Respiratory 800 [facility], 2nd [place] [address] 10/17/2024 2:20 PM EST Appointment PAV G Radiology [address] [place] [address] 10/20/2024 3:30 PM EST Office Visit Pav CC Head, Neck & Respiratory 800 [facility], [address] [place] [address] Germaine Alejandro MD [address] [place] [address] documented as of this encounter Visit Diagnoses Diagnosis Primary cancer of oropharynx (CMS/HCC)- Primary Encounter for antineoplastic radiation therapy documented in this encounter Additional Health Concerns Assessment Noted Time A fall risk assessment has been complete d for the patient 12/30/2022 1:07 PM EDT documented as of this encounter Care Teams Environmental Remediation Engineer Relationship Specialty Start Date End Date Manjit Gorman MD [address] [place], [place] [phone] PCP - General 09/23/22 Olegario Jaurez MD [address] [place] [address] Consulting Physician Radiation Oncology 10/29/2207/05 documented as of this encounter
--- OUTSIDE RECORDS SUMMARY | 2024-07-27 06:53 | XMS_ITS | Encounter Summary ---
Author Organization [facility] Address [address] [place] [address] Care Team Providers Care Mat Linker Name Role Phone Manjit Gorman MD Primary Care Provider [phone] Olegario Juarez MD Unavailable [phone] Encounter Details Date Type Department Care Team (Late Contact Info) Description 12/29/2022 Orders Only PAV CC Radiation [id number] [place] [address] Radiation Oncology, Physician, [address] [place], [place] [id number] Social History Tobacco Use Types Packs/Day Years [...] AM EDT documented as of this encounter Plan of Treatment Upcoming Encounters Date Type Department Care Team (Late st Contact Info) Description 10/17/2024 8:00 AM EST Clinical Support Pav CC Head, Neck & Respiratory [address], [address] [place] [address] 10/17/2024 9:00 AM EST Appointment [facility] PET Scan 800 [place] [address] 10/17/2024 10:00 AM EST Appointment [facility] PET Scan 800 [place] [address] 10/17/2024 11:00 AM EST Office Visit Pav CC Head, Neck & Respiratory 800 [facility], 2nd [place] [address] Juan Pablo Cee MD [address] [facility] [address] [place] [address] 10/17/2024 1:00 PM EST Clinical Support Pav CC Head, Neck & Respiratory 800 [facility], [address]nd [place] [address] 10/17/2024 2:20 PM EST Appointment PAV G Radiology [address] [place] [address] 10/20/2024 3:30 PM EST Office Visit Pav CC Head, Neck & Respiratory 800 [facility], [address] [place] [address] Germaine Alejandro MD 800 [facility] [address] [place] [address] documented as of this encounter Procedures Procedure Name Priority Date/Time Associated Diagnosis Comments RAD ONC ARIA SESSION SUMMARY Routine 12/29/2022 1:03 PM EDT documented in this encounter Results * Rad Onc Aria Session Summary (12/29/2022 1:03 PM EDT) Course ID C1 ARIA RADIATION ONCOLOGY Course Intent Curative ARIA RADIATION ONCOLOGY Course Start Date 10/30/2022 3:11 PM ARIA RADIATION ONCOLOGY Course First Treatment Date 11/11/2022 11:30 AM ARIA RADIATION ONCOLOGY Course Last Treatment Date 12/29/2022 12:56 PM ARIA RADIATION ONCOLOGY Course Elapsed Days 48 ARIA RADIATION ONCOLOGY Reference Point ID RtOropharyn+Neck ARIA RADIATION ONCOLOGY Reference Point Dosage Given to Date 68 Gy ARIA RADIATION ONCOLOGY Reference Point Session Dosage Given 2 Gy ARIA RADIATION ONCOLOGY Plan ID RtOropharynx ARIA RADIATION ONCOLOGY Plan Name H&N ARIA RADIATION ONCOLOGY Plan Fractions Treated to Date 34 ARIA RADIATION ONCOLOGY Plan Total Fractions Prescribed 35 ARIA RADIATION ONCOLOGY Plan Prescribed Dose Per Fraction 2 Gy ARIA RADIATION ONCOLOGY Plan Total Prescribed Dose 7,000 CGy ARIA RADIATION ONCOLOGY Plan Primary Reference Point RtOropharyn+Neck ARIA RADIATION ONCOLOGY 12/29/2022 1:03 PM EDT Physician Radiation Oncology RADIATION ONCOLO GY ORDERABLES Final Result ARIA RADIATION ONCOLOGY documented in this encounter Visit Diagnoses Not on filedocumented in this encounter Additional Health Concerns Assessment Noted Time A fall risk assessment has been complete d for the patient 12/25/2022 11:22 AM EDT documented as of this encounter Care Teams Mat Linker Relationship Specialty Start Date End Date Manjit Gorman MD [address] [place] [address] PCP - General 09/23/22 Olegario Juarez MD [address] [address] Consulting Physician Radiation Oncology 10/29/2207/05 documented as of this encounter
--- OUTSIDE RECORDS SUMMARY | 2024-07-27 06:53 | XMS_ITS | Encounter Summary ---
Author Organization [facility] Address [address] [id number] Care Team Providers Care Recycling Manager Name Role Phone Manjit Gorman MD Primary Care Provider [phone] Olegario Juarez MD Unavailable [phone] Encounter Details Date Type Department Care Team (Latest Contact Info) Description 12/29/2022 4:35 AM EDT - 12/29/2022 12:36 PM EDT Hospital Encounter PAV CC Radiation [id number] [place] [address] Discharge Disposition: Still a Patient Social History [...] AM EDT documented as of this encounter Medications at [...] by mouth 3 (three) times a day. [address]67 mL 2 11/17/2022 3 dexamethasone (Decadron) 4 [...] [facility], 2nd [place] [address] 10/17/2024 9:00 AM EST Appointment [facility] PET Scan 800 [place] [address] 10/17/2024 10:00 AM EST Appointment [facility] PET Scan 800 [place] [address] 10/17/2024 11:00 AM EST Office Visit Pav CC Head, Neck & Respiratory 800 [facility], 2nd [place] [address] Juan Pablo Cee MD [address] [facility] [address] [place] [address] 10/17/2024 1:00 PM EST Clinical Support Pav CC Head, Neck & Respiratory 800 [facility], 2nd [place] [address] 10/17/2024 2:20 PM EST Appointment PAV G Radiology [address] [place] [address] 10/20/2024 3:30 PM EST Office Visit Pav CC Head, Neck & Respiratory 800 [facility], 2nd [place] [address] Germaine Alejandro MD 800 [facility] [address] [place] [address] documented as of this encounter Visit Diagnoses Not on filedocumented in this encounter Additional Health Concerns Assessment Noted Time A fall risk assessment has been complete d for the patient 12/25/2022 11:22 AM EDT documented as of this encounter Care Teams Recycling Manager Relationship Specialty Start Date End Date Manjit Gorman MD [address] [place], [place] [phone] PCP - General 09/23/22 Olegario Juarez MD 800 [facility] [address] [place] [address] Consulting Physician Radiation Oncology 10/29/2207/05 documented as of this encounter
--- OUTSIDE RECORDS SUMMARY | 2024-07-27 06:53 | XMS_ITS | Encounter Summary ---
Author Organization [facility] Address [address] [place] [address] Care Team Providers Care Housing Relocation Name Role Phone Manjit Gorman MD Primary Care Provider [phone] Olegario Juarez MD Unavailable [phone] Encounter Details Date Type Department Care Team (Latest Contact Info) Description 12/26/2022 Travel Social History Tobacco Use Types Packs/Day [...] suspected to have Coronavirus/COVID-19? No / Unsure 12/26/2022 9:27 AM EDT documented as of this encounter Plan of Treatment Upcoming Encounters Date Type Department Care Team (Late st Contact Info) Description 10/17/2024 8:00 AM EST Clinical Support Pav CC Head, Neck & Respiratory 800 [facility], 2nd [place] [address] 10/17/2024 9:00 AM EST Appointment [facility] PET Scan 800 [place] [address] 10/17/2024 10:00 AM EST Appointment [facility] PET Scan 800 [place] [address] 10/17/2024 11:00 AM EST Office Visit Pav CC Head, Neck & Respiratory 800 [facility], 2nd [place] [address] Juan Pablo Cee MD [address] [facility] [address] [place] [address] 10/17/2024 1:00 PM EST Clinical Support Pav CC Head, Neck & Respiratory 800 [facility], 2nd [place] [address] 10/17/2024 2:20 PM EST Appointment PAV G Radiology [address] [place] [address] 10/20/2024 3:30 PM EST Office Visit Pav CC Head, Neck & Respiratory 800 [facility], [address] [place] [address] Germaine Alejandro MD [address] [place] [address] documented as of this encounter Visit Diagnoses Not on filedocumented in this encounter Additional Health Concerns Assessment Noted Time A fall risk assessment has been complete d for the patient 12/25/2022 11:22 AM EDT documented as of this encounter Care Teams Housing Relocation Relationship Specialty Start Date End Date Manjit Gorman MD [address] [place], [place] [phone] PCP - General 09/23/22 Olegario Juarez MD [address] [facility] [address] [place] [address] Consulting Physician Radiation Oncology 10/29/2207/05 documented as of this encounter
--- OUTSIDE RECORDS SUMMARY | 2024-07-27 06:53 | XMS_ITS | Encounter Summary ---
Author Organization [facility] Address [address] [place] [address] Care Team Providers Care Ballistics Expert Name Role Phone Manjit Gorman MD Primary Care Provider Olegario Juarez MD Unavailable [phone] Encounter Details Date Type Department Care Team (Latest Contact Info) Description 01/14/2023 Travel Social History Tobacco Use Types Packs/Day [...] Head, Neck & Respiratory 800 [facility], 2nd [place] [address] 10/17/2024 9:00 AM EST Appointment [facility] PET Scan 800 [place] [address] 10/17/2024 10:00 AM EST Appointment [facility] PET Scan 800 [place] [address] 10/17/2024 11:00 AM EST Office Visit Pav CC Head, Neck & Respiratory 800 [facility], 2nd [place] [address] Juan Pablo Cee MD [address] [facility] [address] [place] [address] 10/17/2024 1:00 PM EST Clinical Support Pav CC Head, Neck & Respiratory 800 [facility], 2nd [place] [address] 10/17/2024 2:20 PM EST Appointment PAV G Radiology [address] [place] [address] 10/20/2024 3:30 PM EST Office Visit Pav CC Head, Neck & Respiratory 800 [facility], [address]nd [place] [address] Germaine Alejandro MD [address] [place] [address] documented as of this encounter Visit Diagnoses Not on filedocumented in this encounter Additional Health Concerns Assessment Noted Time A fall risk assessment has been complete d for the patient 12/30/2022 1:07 PM EDT documented as of this encounter Care Teams Ballistics Expert Relationship Specialty Start Date End Date Manjit Gorman MD [address] [place], [place] [phone] PCP - General 09/23/22 Olegario Juarez MD [address] [facility] [address] [place] [address] Consulting Physician Radiation Oncology 10/29/2207/05 documented as of this encounter
--- OUTSIDE RECORDS SUMMARY | 2024-07-27 06:53 | XMS_ITS | Encounter Summary ---
Author Organization [facility] Address [address] [id number] Care Team Providers Care Imaging Clerk Name Role Phone Manjit Gorman MD Primary Care Provider [phone] Olegario Juarez MD Unavailable [phone] Encounter Details Date Type Department Care Team (Latest Contact Info) Description 12/26/2022 12:12 PM EDT - 12/26/2022 11:59 PM EDT Hospital Encounter PAV CC Radiation [address] [place] [address] Discharge Disposition: Still a Patient Social History [...] by mouth 3 (three) times a day. [address]9562 mL 2 11/17/2022 3 dexamethasone (Decadron) 4 [...] Pav CC Head, Neck & Respiratory 800 [facility], 2nd [place] [address] 10/17/2024 9:00 AM EST Appointment [facility] PET Scan 800 [place] [address] 10/17/2024 10:00 AM EST Appointment [facility] PET Scan 800 [place] [address] 10/17/2024 11:00 AM EST Office Visit Pav CC Head, Neck & Respiratory 800 [facility], 2nd [place] [address] Juan Pablo Cee MD [address] [facility] [address] [place] [address] 10/17/2024 1:00 PM EST Clinical Support Pav CC Head, Neck & Respiratory 800 [facility], 2nd [place] [address] 10/17/2024 2:20 PM EST Appointment PAV G Radiology [address] [place] [address] 10/20/2024 3:30 PM EST Office Visit Pav CC Head, Neck & Respiratory 800 [facility], 2nd [place] [address] Germaine Alejandro MD 800 [facility] [address] [place] [address] documented as of this encounter Visit Diagnoses Not on filedocumented in this encounter Additional Health Concerns Assessment Noted Time A fall risk assessment has been complete d for the patient 12/25/2022 11:22 AM EDT documented as of this encounter Care Teams Imaging Clerk Relationship Specialty Start Date End Date Manjit Gorman MD [address] [place], [place] [phone] PCP - General 09/23/22 Olegario Juarez MD 800 [facility] [address] [place] [address] Consulting Physician Radiation Oncology 10/29/2207/05 documented as of this encounter
--- OUTSIDE RECORDS SUMMARY | 2024-07-27 06:53 | XMS_ITS | Encounter Summary ---
Author Organization [facility] Address [address] [place] [address] Care Team Providers Care Customer Insight Analyst Name Role Phone Manjit Gorman MD Primary Care Provider [phone] Olegario Juarez MD Unavailable [phone] Encounter Details Date Type Department Care Team (Latest Contact Info) Description 12/28/2022 Travel Social History Tobacco Use Types Packs/Day [...] Pav CC Head, Neck & Respiratory 800 [facility], 2nd [place] [address] 10/17/2024 9:00 AM EST Appointment [facility] PET Scan 800 [place] [address] 10/17/2024 10:00 AM EST Appointment [facility] PET Scan 800 [place] [address] 10/17/2024 11:00 AM EST Office Visit Pav CC Head, Neck & Respiratory 800 [facility], 2nd [place] [address] Juan Pablo Cee MD [address] [facility] [address] [place] [address] 10/17/2024 1:00 PM EST Clinical Support Pav CC Head, Neck & Respiratory 800 [facility], 2nd [place] [address] 10/17/2024 2:20 PM EST Appointment PAV G Radiology [address] [place] [address] 10/20/2024 3:30 PM EST Office Visit Pav CC Head, Neck & Respiratory 800 [facility], [address] [place] [address] Germaine Alejandro MD [address] [place] [address] documented as of this encounter Visit Diagnoses Not on filedocumented in this encounter Additional Health Concerns Assessment Noted Time A fall risk assessment has been complete d for the patient 12/25/2022 11:22 AM EDT documented as of this encounter Care Teams Customer Insight Analyst Relationship Specialty Start Date End Date Manjit Gorman MD [address] [place], [place] [phone] PCP - General 09/23/22 Olegario Juarez MD [address] [facility] [address] [place] [address] Consulting Physician Radiation Oncology 10/29/2207/05 documented as of this encounter
--- OUTSIDE RECORDS SUMMARY | 2024-07-27 06:53 | XMS_ITS | Encounter Summary ---
Author Organization [facility] Address [address] [place], [place] [id number] Care Team Providers Care Bracer Name Role Phone Manjit Gorman MD Primary Care Provider [phone] Olegario Juarez MD Unavailable [phone] Encounter Details Date Type Department Care Team (Latest Contact Info) Description 02/04/2023 Travel Social History Tobacco Use Types Packs/Day [...] CC Head, Neck & Respiratory [address] [address] 10/17/2024 9:00 AM EST Appointment [facility] PET Scan 800 [place] [address] 10/17/2024 10:00 AM EST Appointment [facility] PET Scan 800 [place] [address] 10/17/2024 11:00 AM EST Office Visit Pav [facility] Head, Neck & Respiratory [address] [phone] Juan Pablo Cee MD [address] [facility] [address] [place] [address] 10/17/2024 1:00 PM EST Clinical Support Pav CC Head, Neck & Respiratory [address] [place] [address] 10/17/2024 2:20 PM EST Appointment [facility] Radiology [address] [place] [address] 10/20/2024 3:30 PM EST Office Visit Pav CC Head, Neck & Respiratory 800 [facility], 2nd [place] [address] Germaine Alejandro MD [address] [place] [phone] documented as of this encounter Visit Diagnoses Not on filedocumented in this encounter Additional Health Concerns Assessment Noted Time A fall risk assessment has been complete d for the patient 02/04/2023 3:49 PM EDT documented as of this encounter Care Teams Bracer Relationship Specialty Start Date End Date Manjit Gorman MD [address] [place], [place] [id number] PCP - General 09/23/22 Olegario Juarez MD [address] [place] [address] Consulting Physician Radiation Oncology 10/29/2207/05 documented as of this encounter
--- OUTSIDE RECORDS SUMMARY | 2024-07-27 06:53 | XMS_ITS | Encounter Summary ---
Author Organization [facility] Address [address] [place] [address] Care Team Providers Care Director [employer] Name Role Phone Manjit Gorman MD Primary Care Provider [phone] Olegario Juarez MD Unavailable [phone] Encounter Details Date Type Department Care Team (Late Contact Info) Description 12/24/2022 Orders Only [facility] Radiation [address] [place] [address] Radiation Oncology, Physician, [address] [place], [place] [id number] Social History Tobacco Use Types Packs/Day Years [...] suspected to have Coronavirus/COVID-19? No / Unsure 12/21/2022 8:44 AM EDT documented as of this encounter Plan of Treatment Upcoming Encounters Date Type Department Care Team (Late st Contact Info) Description 10/17/2024 8:00 AM EST Clinical Support Pav CC Head, Neck & Respiratory [address], [address] [place] [address] 10/17/2024 9:00 AM EST Appointment [facility] PET Scan 800 [place] [address] 10/17/2024 10:00 AM EST Appointment [facility] PET Scan 800 [place] [address] 10/17/2024 11:00 AM EST Office Visit Pav CC Head, Neck & Respiratory 800 [facility], 2nd [place] [address] Juan Pablo Cee MD [address] [facility] [address] [place] [address] 10/17/2024 1:00 PM EST Clinical Support Pav CC Head, Neck & Respiratory 800 [facility], 2nd [place] [address] 10/17/2024 2:20 PM EST Appointment [facility] Radiology [address] [place] [address] 10/20/2024 3:30 PM EST Office Visit Pav CC Head, Neck & Respiratory 800 [facility], [address]nd [place] [address] Germaine Alejandro MD 800 [facility] [address] [place] [address] documented as of this encounter Procedures Procedure Name Priority Date/Time Associated Diagnosis Comments RAD ONC ARIA SESSION SUMMARY Routine 12/24/2022 1:24 PM EDT documented in this encounter Results * Rad Onc Aria Session Summary (12/24/2022 1:24 PM EDT) Course ID C1 ARIA RADIATION ONCOLOGY Course Intent Curative ARIA RADIATION ONCOLOGY Course Start Date 10/30/2022 3:11 PM ARIA RADIATION ONCOLOGY Course First Treatment Date 11/11/2022 11:30 AM ARIA RADIATION ONCOLOGY Course Last Treatment Date 12/24/2022 1:17 PM ARIA RADIATION ONCOLOGY Course Elapsed Days 43 ARIA RADIATION ONCOLOGY Reference Point ID RtOropharyn+Neck ARIA RADIATION ONCOLOGY Reference Point Dosage Given to Date 62 Gy ARIA RADIATION ONCOLOGY Reference Point Session Dosage Given 2 Gy ARIA RADIATION ONCOLOGY Plan ID RtOropharynx ARIA RADIATION ONCOLOGY Plan Name H&N ARIA RADIATION ONCOLOGY Plan Fractions Treated to Date 31 ARIA RADIATION ONCOLOGY Plan Total Fractions Prescribed 35 ARIA RADIATION ONCOLOGY Plan Prescribed Dose Per Fraction 2 Gy ARIA RADIATION ONCOLOGY Plan Total Prescribed Dose 7,000 CGy ARIA RADIATION ONCOLOGY Plan Primary Reference Point RtOropharyn+Neck ARIA RADIATION ONCOLOGY 12/24/2022 1:24 PM EDT Physician Radiation Oncology RADIATION ONCOLO GY ORDERABLES Final Result ARIA RADIATION ONCOLOGY documented in this encounter Visit Diagnoses Not on filedocumented in this encounter Additional Health Concerns Assessment Noted Time A fall risk assessment has been complete d for the patient 12/23/2022 1:18 PM EDT documented as of this encounter Care Teams Director [employer] Of Nursing Relationship Specialty Start Date End Date Manjit Gorman MD [address] [place] [address] PCP - General 09/23/22 Olegario Juarez MD [address] [address] Consulting Physician Radiation Oncology 10/29/2207/05 documented as of this encounter
--- OUTSIDE RECORDS SUMMARY | 2024-07-27 06:53 | XMS_ITS | Encounter Summary ---
Author Organization [facility] Address [address] [id number] Care Team Providers Care Administrative Fellow Name Role Phone Manjit Gorman MD Primary Care Provider [phone] Olegario Juarez MD Unavailable [phone] Encounter Details Date Type Department Care Team (Latest Contact Info) Description 12/29/2022 12:37 PM EDT - 12/29/2022 11:59 PM EDT Hospital Encounter [facility] Radiation [address] [place] [address] Discharge Disposition: Still a Patient Social History [...] by mouth 3 (three) times a day. 52360 mL 2 11/17/2022 3 dexamethasone (Decadron) 4 [...] Head, Neck & Respiratory 800 [facility], 2nd [place] [address] 10/17/2024 9:00 AM EST Appointment [facility] PET Scan 800 [place] [address] 10/17/2024 10:00 AM EST Appointment [facility] PET Scan 800 [place] [address] 10/17/2024 11:00 AM EST Office Visit Pav CC Head, Neck & Respiratory 800 [facility], 2nd [place] [phone] Juan Pablo Cee MD [address] [facility] [address] [place] [address] 10/17/2024 1:00 PM EST Clinical Support Pav CC Head, Neck & Respiratory 800 [facility], 2nd [place] [address] 10/17/2024 2:20 PM EST Appointment [facility] G Radiology [address] [place] [address] 10/20/2024 3:30 PM EST Office Visit Pav CC Head, Neck & Respiratory 800 [facility], 2nd [place] [address] Germaine Alejandro MD 800 [facility] [address] [place] [address] documented as of this encounter Visit Diagnoses Not on filedocumented in this encounter Additional Health Concerns Assessment Noted Time A fall risk assessment has been complete d for the patient 12/25/2022 11:22 AM EDT documented as of this encounter Care Teams Administrative Fellow Relationship Specialty Start Date End Date Manjit Gorman MD [address] [place], [place] [phone] PCP - General 09/23/22 Olegario Juarez MD 800 [facility] [address] [place] [address] Consulting Physician Radiation Oncology 10/29/2207/05 documented as of this encounter
--- OUTSIDE RECORDS SUMMARY | 2024-07-27 06:53 | XMS_ITS | Encounter Summary ---
Author Organization [facility] Address [address] [place] [address] Care Team Providers Care Manager Corporate Strategy Name Role Phone Manjit Gorman MD Primary Care Provider [phone] Olegario Juarez MD Unavailable [phone] Reason for Visit * Reason Comments Labs Only Peripheral-RA Encounter Details Date Type Department Care Team (Latest Contact Info) Description 12/24/2022 1:00 PM EDT Clinical Support Pav CC Head, Neck & Respiratory 800 [facility], [address]nd [place] [address] Cancer of base of tongue (CMS/HCC) Social [...] suspected to have Coronavirus/COVID-19? No / Unsure 12/24/2022 1:23 PM EDT documented as of this encounter Plan of Treatment Upcoming Encounters Date Type Department Care Team (Late st Contact Info) Description 10/17/2024 8:00 AM EST Clinical Support Pav CC Head, Neck & Respiratory 800 [facility], 2nd [place] [address] 10/17/2024 9:00 AM EST Appointment [facility] PET Scan 800 [place] [address] 10/17/2024 10:00 AM EST Appointment [facility] PET Scan 800 [place] [address] 10/17/2024 11:00 AM EST Office Visit Pav CC Head, Neck & Respiratory 800 [facility], [address] [place] [address] Juan Pablo Cee MD [address] [facility] [address] [place] [address] 10/17/2024 1:00 PM EST Clinical Support Pav CC Head, Neck & Respiratory 800 [facility] [address] [place] [address] 10/17/2024 2:20 PM EST Appointment [facility] Radiology [address] [place] [address] 10/20/2024 3:30 PM EST Office Visit Pav CC Head, Neck & Respiratory [address] [address] Germaine Alejandro MD 800 [facility] [address] [place] [address] documented as of this encounter Procedures Procedure Name Priority Date/Time Associated Diagnosis Comments CBC WITH AUTO DIFFERENTIAL Routine 12/24/2022 1:36 PM EDT Cancer of base of tongue (CMS/HCC) MAGNESIUM, PLASMA STAT 12/24/2022 1:3 6 PM EDT Cancer of base of tongue (CMS/HCC) COMPREHENSIVE METABOLIC PANEL, PLASMA Routine 12/24/2022 1:36 PM EDT Cancer of base of tongue (CMS/HCC) documented in this encounter Results * (ABNORMAL) Magnesium (12/24/2022 1:36 PM EDT) Magnesium, Plasma 1.8(L) 1.9 - 2.4 mg/dL 12/24/2022 2:25 PM EDT [facility] Blood Venous blood specimen / Unknown Venipuncture / Unknown 12/24/2022 1:36 PM EDT 12/24/2022 1:52 PM EDT Germaine Alejandro MD LAB BLOOD ORDERABLES Final R esult [facility] [address] [place] [address] * (ABNORMAL) Comprehensive metabolic panel (12/24/2022 1:36 PM EDT) Glucose, Plasma 100(H) 74 - 99 mg/dL 12/24/2022 2:25 PM EDT [facility] BUN, Plasma 17 8 - 23 mg/dL 12/24/2022 2:25 PM EDT [facility] Creatinine, Plasma 1.18 0.80 - 1.30 mg/dL 12/24/2022 2:25 PM EDT [facility] BUN/Creatinine Ratio 14 12/24/2022 2:25 PM EDT [facility] Sodium, Plasma 137 136 - 145 mmol/L 12/24/2022 2:25 PM EDT [facility] Potassium, Plasma 5.6(H) 3.7 - 4.8 mmol/L 12/24/2022 2:25 PM EDT [facility] Chloride, Plasma 102 97 - 107 mmol/L 12/24/2022 2:25 PM EDT [facility] CO2, Plasma 24 22 - 29 mmol/L 12/24/2022 2:25 PM EDT [facility] Anion Gap 11 6 - 16 mmol/L 12/24/2022 2:25 PM EDT [facility] Total Calcium, Plasma 9.5 8.9 - 10.2 mg/dL 12/24/2022 2:25 PM EDT [facility] Total Protein 6.4 6.3 - 7.9 g/dL 12/24/2022 2:25 PM EDT [facility] Albumin, Plasma 4.0 3.5 - 5.2 g/dL 12/24/2022 2:25 PM EDT [facility] AST, Plasma 23 19 - 48 U/L 12/24/2022 2:25 PM EDT [facility] ALT, Plasma 16 11 - 41 U/L 12/24/2022 2:25 PM EDT [facility] Alkaline Phosphatase, Plasma 69 40 - 115 U/L 12/24/2022 2:25 PM EDT [facility] Total Bilirubin, Plasma 0.3 0.2 - 1.1 mg/dL 12/24/2022 2:25 PM EDT [facility] eGFRcr 65.6 mL/min/1.7 3m*2 12/24/2022 2:25 PM EDT [facility] Comment: Reported eGFRcr in mL/min/1.73m2 is based the CKD-EPI 2020 equation that does not use a race coefficient. Effective 04/02/22 our laboratory changed the eGFR calculation to the CKD-EPI 2020 equation from the previously reported eGFR, based on the MDRD equation. ??For comparisons between the two equations, please see laboratory website: ??[email or web address] Blood Venous blood specimen / Unknown Venipuncture / Unknown 12/24/2022 1:36 PM EDT 12/24/2022 1:52 PM EDT us Germaine Alejandro MD LAB BLOOD ORDERABLES Final R esult [facility] [address] [place] [address] * (ABNORMAL) CBC and differential (12/24/2022 1:36 PM EDT) WBC Count 2.33(L) 3.70 - 10.30 10*3/uL LAB HEMATOLOGY METHOD 12/24/2022 3:08 PM EDT [facility] RBC Count 4.07(L) 4.60 - 6.10 10*6/uL LAB HEMATOLOGY METHOD 12/24/2022 3:08 PM EDT [facility] HGB 12.5(L) 13.7 - 17.5 g/dL LAB HEMATOLOGY METHOD 12/24/2022 3:08 PM EDT [facility] HCT 36.3(L) 40.0 - 51.0 % LAB HEMATOLOGY METHOD 12/24/2022 3:08 PM EDT [facility] Platelet Count 216 155 - 369 10*3/uL LAB HEMATOLOGY METHOD 12/24/2022 3:08 PM EDT [facility] MCV 89 79 - 98 fL LAB HEMATOLOGY METHOD 12/24/2022 3:08 PM EDT [facility] MCH 30.7 26.0 - 32.0 pg LAB HEMATOLOGY METHOD 12/24/2022 3:08 PM EDT [facility] MCHC 34.4 30.7 - 35.5 g/dL LAB HEMATOLOGY METHOD 12/24/2022 3:08 PM EDT [facility] RDW 14.1 11.5 - 14.5 % LAB HEMATOLOGY METHOD 12/24/2022 3:08 PM EDT [facility] MPV 8.7(L) 8.8 - 12.5 fL LAB HEMATOLOGY METHOD 12/24/2022 3:08 PM EDT [facility] nRBC 0.0 <=0.0 per 100 WBCs LAB HEMATOLOGY METHOD 12/24/2022 3:08 PM EDT [facility] Differential Type Automated LAB HEMATOLOGY METHOD 12/24/2022 3:08 PM EDT [facility] Neutrophils % 64.0 % LAB HEMATOLOGY METHOD 12/24/2022 3:08 PM EDT [facility] Lymphocytes % 13.0 % LAB HEMATOLOGY METHOD 12/24/2022 3:08 PM EDT [facility] Monocytes % 22.0 % LAB HEMATOLOGY METHOD 12/24/2022 3:08 PM EDT [facility] Eosinophils % 0.0 % LAB HEMATOLOGY METHOD 12/24/2022 3:08 PM EDT [facility] Basophils % 1.0 % LAB HEMATOLOGY METHOD 12/24/2022 3:08 PM EDT [facility] Immature Granulocytes % 0.0 % LAB HEMATOLOGY METHOD 12/24/2022 3:08 PM EDT [facility] Neutrophils Absolute 1.48(L) 1.60 - 6.10 10*3/uL LAB HEMATOLOGY METHOD 12/24/2022 3:08 PM EDT [facility] Lymphocytes Absolute 0.30(L) 1.20 - 3.90 10*3/uL LAB HEMATOLOGY METHOD 12/24/2022 3:08 PM EDT [facility] Monocytes Absolute 0.51 0.30 - 0.90 10*3/uL LAB HEMATOLOGY METHOD 12/24/2022 3:08 PM EDT [facility] Eosinophils Absolute 0.01 0.00 - 0.50 10*3/uL LAB HEMATOLOGY METHOD 12/24/2022 3:08 PM EDT [facility] Basophils Absolute 0.02 0.00 - 0.10 10*3/uL LAB HEMATOLOGY METHOD 12/24/2022 3:08 PM EDT [facility] Immature Granulocytes Absolute 0.01 0.00 - 0.06 10*3/uL LAB HEMATOLOGY METHOD 12/24/2022 3:08 PM EDT [facility] Blood Venous blood specimen / Unknown Venipuncture / Unknown 12/24/2022 1:36 PM EDT 12/24/2022 1:52 PM EDT Narrative [facility] - 12/24/2022 3:08 PM EDT Therapeutic decision making should be based on absolute values, rather than percentages. us Germaine Alejandro MD LAB BLOOD ORDERABLES Final R esult [facility] [address] [place] [address] documented in this encounter Visit Diagnoses Diagnosis 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 documented in this encounter Additional Health Concerns Assessment Noted Time A fall risk assessment has been complete d for the patient 12/23/2022 1:18 PM EDT documented as of this encounter Care Teams Manager Corporate Strategy Relationship Specialty Start Date End Date Manjit Gorman MD [address] [place] [address] PCP - General 09/23/22 Olegario Juarez MD [address] [place] [phone] Consulting Physician Radiation Oncology 10/29/2207/05 documented as of this encounter
--- OUTSIDE RECORDS SUMMARY | 2024-07-27 06:53 | XMS_ITS | Encounter Summary ---
Author Organization [facility] Address [address] [place] [address] Care Team Providers Care Bottling Line Attendant Name Role Phone Manjit Gorman MD Primary Care Provider [phone] Olegario Juarez MD Unavailable [phone] Encounter Details Date Type Department Care Team (Latest Contact Info) Description 12/30/2022 Travel Social History Tobacco Use Types Packs/Day [...] Head, Neck & Respiratory 800 [facility], [address]nd [place] [address] 10/17/2024 9:00 AM EST Appointment [facility] PET Scan 800 [place] [address] 10/17/2024 10:00 AM EST Appointment [facility] PET Scan [address] [place] [phone] 10/17/2024 11:00 AM EST Office Visit Pav CC Head, Neck & Respiratory [address] [facility], [address]nd [place] [phone] Juan Pablo Cee MD [address] [facility] [address] [place] [phone] 10/17/2024 1:00 PM EST Clinical Support Pav CC Head, Neck & Respiratory [address] [facility], [address] [place] [address] 10/17/2024 2:20 PM EST Appointment P[facility] G Radiology [address] [place] [address] 10/20/2024 3:30 PM EST Office Visit Pav CC Head, Neck & Respiratory [address] [facility], [address] [place] [address] Germaine Alejandro MD [address] [place] [phone] documented as of this encounter Visit Diagnoses Not on filedocumented in this encounter Additional Health Concerns Assessment Noted Time A fall risk assessment has been complete d for the patient 12/30/2022 1:07 PM EDT documented as of this encounter Care Teams Bottling Line Attendant Relationship Specialty Start Date End Date Manjit Gorman MD [address] [place], [place] [phone] PCP - General 09/23/22 Olegario Juarez MD [address] [facility] [address] [place] [address] Consulting Physician Radiation Oncology 10/29/2207/05 documented as of this encounter
--- OUTSIDE RECORDS SUMMARY | 2024-07-27 06:53 | XMS_ITS | Encounter Summary ---
Author Organization [facility] Address [address] [place] [address] Care Team Providers Care Surveyor Instrument Assistant Name Role Phone Manjit Gorman MD Primary Care Provider [phone] Olegario Juarez MD Unavailable [phone] Reason for Visit * Reason Comments Follow-up Encounter Details Date Type Department Care Team (Latest Contact Info) Description 02/04/2023 3:44 PM EDT - 02/04/2023 11:59 PM EDT Hospital Encounter [facility] Radiation 800 [facility]. [id number] [place] [address] Bossman Moscoso MD 800 [facility] [address] [place] [address] Primary cancer of oropharynx (CMS/HCC) (Primary Dx); Radiotherapy follow-up examination; Cancer of base of tongue (CMS/HCC) Discharge Disposition: Still a Patient Social History [...] Sign Reading Time Taken Comments Blood Pressure 127/72 02/04/2023 3:49 PM EDT Pulse 78 02/04/2023 3:49 PM EDT Temperature - - Respiratory Rate 15 02/04/2023 3:49 PM EDT Oxygen Saturation 100% 02/04/2023 3:49 PM EDT Inhaled Oxygen Concentration - - Weight 75.4 kg (166 lb 3.6 oz) 02/04/2023 3:49 P M EDT Height 188 cm (6' 2 ) 02/04/2023 3:49 PM EDT Body Mass Index 21.34 02/04/2023 3:49 PM EDT documented in this encounter Medications [...] by mouth 3 (three) times a day. 22809 mL 2 11/17/2022 3 dexamethasone (Decadron) 4 [...] Progress Notes - Jose Meade MD - 02/04/2023 4:00 PM EDT [facility] RADIATION MEDICINE RADIATION ONCOLOGY FOLLOW-UP NOTE PATIENT NAME: Erick Sierra : 1950 DATE OF SERVICE: 02/04/2023 DIAGNOSIS AND Cancer Staging Cancer of base of tongue (CMS/HCC) Staging form: Pharynx - HPV-Mediated Oropharynx, AJCC 8th Edition - Clinical stage from 10/29/2022: Stage I (cT2, cN1, cM0, p16+) - Signed by Germaine Alejandro MD on 11/10/2022 Histopathologic type: Squamous cell carcinoma, NOS Stage [...] cervical mass. He was then referred to anENT that started investigation as showed below: 08/12/2022. [...] LN biopsy, Mr. Sierra's disease was staged [id number]. CT Chest 10/21/22 showed no metastatic disease, and PET/CT 10/21/22 demonstrated a hypermetabolic RIGHT BOT mass and hypermetabolic RIGHT level IIA (2cm) and IIB (0.7cm) nodes. Patient completed chemoradiation to the right oropharynx and cervical lymph levels as described above completed on 12/30/2022. He now returns for a routine one month follow up visit. INTERVAL HISTORY: Patient reports that he has been doing well over all over the past several weeks. He notes that themucus production is now decreased and he in fact has xerostomia requiring frequent sips of water. He has been using mouthwash #1 as well. He notes that he has been able to tolerate oral intake and has started to regain his weight. He denies any N/V/D/C, coughs or chest pain. No neck pain. REVIEW OF SYSTEMS: A 14 point review of systems was conducted with pertinent positives and negatives above in the HPI. MEDICATIONS: Reviewed ALLERGIES: Reviewed SOCIAL HISTORY: Changes noted in the HPI if applicable PHYSICAL EXAM: Vital Signs: Visit Vitals BP 127/72 Pulse 78 Resp 15 Ht 1.88 m (6' 2 ) Wt 75.4 kg (166 lb 3.6 oz) SpO2 100% BMI 21.34 kg/m?? Smoking Status Never BSA 1.98 m?? Physical Exam Constitutional: Appearance: Normal appearance. HENT: Head: Normocephalic and atraumatic. Right Ear: External ear normal. Left Ear: External ear normal. Nose: Nose normal. Mouth/Throat: Pharynx: Oropharynx is clear. Comments: No oral mucositis or thrush noted. Re-appearance of pa Eyes: Conjunctiva/sclera: Conjunctivae normal. Neck: Comments: Post radiation changes of the neck and oropharynx. Cardiovascular: Rate and Rhythm: Normal rate. Pulmonary: Effort: Pulmonary effort is normal. Abdominal: General: Abdomen is flat. Musculoskeletal: General: Normal range of motion. Cervical back: Normal range of motion. Skin: General: Skin is warm and dry. Neurological: General: No focal deficit present. Mental Status: He is alert. Psychiatric: Mood and Affect: Mood normal. Behavior: Behavior normal. PATHOLOGY AND LABORATORY STUDIES: All pertinent lab and pathology results were reviewed. IMAGING: The following radiologic studies were independently reviewed by the staff attending and myself. ASSESSMENT AND PLAN: Erick Sierra is a 72 y.o. 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 PET/CT 10/21/22 demonstrated a hypermetabolic RIGHT BOT mass and hypermetabolic RIGHT level IIA and IIB nodes. Patient completed radiation treatment as described above. Patient developed mucositis which was treated with mouthwash #1, had copious oral secretions which was managed with Mucinex and dry desquamation of skin which was managed with Aquaphor. Per patient, over the past month the copious oral secretions have decreased and his quality of life has improved as a result. His taste remains affected and he now has xerostomia. Patient does not have any unforseen radiation induced toxicities. Patient will return to clinic in 3 months with imaging to assess for treatment response. All of his questions were answered to [...] if you have any questions or concerns. Jose Meade MD, MPH. Resident Physician Radiation Oncology [facility] Pager: [phone] Cosigned by Bossman Moscoso MD at 02/11/2023 8:47 AM EDT Associated attestation - Bossman Moscoso MD - 02/11/2023 8:47 AM EDT I saw and evaluated the patient with the resident/fellow. I discussed the case with the resident/fellow and agree with the findings and plan as documented. documented in this encounter Plan of Treatment Upcoming Encounters Date Type Department Care Team (Late st Contact Info) Description 10/17/2024 8:00 AM EST Clinical Support Pav CC Head, Neck & Respiratory [address] [phone] 10/17/2024 9:00 AM EST Appointment [facility] PET Scan 800 [place] [address] 10/17/2024 10:00 AM EST Appointment [facility] PET Scan [address] [place] [address] 10/17/2024 11:00 AM EST Office Visit [facility] Head, Neck & Respiratory [address] [phone] Juan Pablo Cee MD [address] [facility] [address] [place] [address] 10/17/2024 1:00 PM EST Clinical Support Pav CC Head, Neck & Respiratory [address] [phone] 10/17/2024 2:20 PM EST Appointment P[facility] G Radiology [address] [place] [address] 10/20/2024 3:30 PM EST Office Visit Pav CC Head, Neck & Respiratory [address] [phone] Germaine Alejandro MD 800 [facility] [address] [place] [address] documented as of this encounter Visit Diagnoses Diagnosis Primary cancer of oropharynx (CMS/HCC)- Primary Radiotherapy follow-up examination 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 documented in this encounter Additional Health Concerns Assessment Noted Time A fall risk assessment has been complete d for the patient 02/04/2023 3:49 PM EDT documented as of this encounter Care Teams Surveyor Instrument Assistant Relationship Specialty Start Date End Date Manjit Gorman MD [address] [place], [place] [id number] PCP - General 1/17/23 Olegario Juarez MD [address] [address] Consulting Physician Radiation Oncology 10/29/2207/05 documented as of this encounter
--- OUTSIDE RECORDS SUMMARY | 2024-07-27 06:53 | XMS_ITS | Encounter Summary ---
Author Organization [facility] Address [address] [place] [address] Care Team Providers Care Dispatcher Maintenance Name Role Phone Manjit Gorman MD Primary Care Provider [phone] Olegario Juarez MD Unavailable [phone] Encounter Details Date Type Department Care Team (Latest Contact Info) Description 01/20/2023 Travel Social History Tobacco Use Types Packs/Day [...] Respiratory 800 [facility], [address]nd [place] [address] 10/17/2024 9:00 AM EST Appointment [facility] PET Scan 800 [place] [address] 10/17/2024 10:00 AM EST Appointment [facility] PET Scan 800 [place] [address] 10/17/2024 11:00 AM EST Office Visit Pav CC Head, Neck & Respiratory 800 [facility], [address] [place] [phone] Juan Pablo Cee MD [address] [facility] [address] [place] [address] 10/17/2024 1:00 PM EST Clinical Support Pav CC Head, Neck & Respiratory 800 [facility], [address] [place] [address] 10/17/2024 2:20 PM EST Appointment P[facility] G Radiology [address] [place] [address] 10/20/2024 3:30 PM EST Office Visit Pav CC Head, Neck & Respiratory 800 [facility], [address] [place] [phone] Germaine Alejandro MD 800 [facility] [address] [place] [address] documented as of this encounter Visit Diagnoses Not on filedocumented in this encounter Additional Health Concerns Assessment Noted Time A fall risk assessment has been complete d for the patient 01/20/2023 9:02 AM EDT documented as of this encounter Care Teams Dispatcher Maintenance Relationship Specialty Start Date End Date Manjit Gorman MD [address] [place] [address] PCP - General 09/23/22 Olegario Juarez MD 800 [facility] [address] [place] [address] Consulting Physician Radiation Oncology 10/29/2207/05 documented as of this encounter
--- OUTSIDE RECORDS SUMMARY | 2024-07-27 06:53 | XMS_ITS | Encounter Summary ---
Author Organization [facility] Address [address] [place] [address] Care Team Providers Care Powerhouse Operator Name Role Phone Manjit Gorman MD Primary Care Provider [phone] Olegario Juarez MD Unavailable [phone] Encounter Details Date Type Department Care Team (Latest Contact Info) Description 12/24/2022 Travel Social History Tobacco Use Types Packs/Day [...] Head, Neck & Respiratory 800 [facility], [address]nd [place] [address] 10/17/2024 9:00 AM EST Appointment [facility] PET Scan 800 [place] [address] 10/17/2024 10:00 AM EST Appointment [facility] PET Scan [address] [place] [address] 10/17/2024 11:00 AM EST Office Visit Pav CC Head, Neck & Respiratory 800 [facility], 2nd [place] [address] Juan Pablo Cee MD [address] [facility] [address] [place] [address] 10/17/2024 1:00 PM EST Clinical Support Pav CC Head, Neck & Respiratory 800 [facility], 2nd [place] [address] 10/17/2024 2:20 PM EST Appointment [facility] G Radiology [address] [place] [address] 10/20/2024 3:30 PM EST Office Visit Pav CC Head, Neck & Respiratory 800 [facility], [address] [place] [address] Germaine Alejandro MD [address] [place] [address] documented as of this encounter Visit Diagnoses Not on filedocumented in this encounter Additional Health Concerns Assessment Noted Time A fall risk assessment has been complete d for the patient 12/23/2022 1:18 PM EDT documented as of this encounter Care Teams Powerhouse Operator Relationship Specialty Start Date End Date Manjit Gorman MD [address] [place], [place] [phone] PCP - General 09/23/22 Olegario Juarez MD [address] [facility] [address] [place] [address] Consulting Physician Radiation Oncology 10/29/2207/05 documented as of this encounter
--- OUTSIDE RECORDS SUMMARY | 2024-07-27 06:53 | XMS_ITS | Encounter Summary ---
Author Organization [facility] Address [address] [place] [address] Care Team Providers Care Helper Teacher Name Role Phone Manjit Gorman MD Primary Care Provider [phone] Olegario Juarez MD Unavailable [phone] Encounter Details Date Type Department Care Team (Late Contact Info) Description 12/25/2022 Orders Only [facility] Radiation [address] [place] [address] Radiation Oncology, Physician, [address] [place], [place] [id number] Social History Tobacco Use Types Packs/Day Years [...] & Respiratory [address], [address] [place] [address] 10/17/2024 9:00 AM EST Appointment [facility] PET Scan [address] [place] [address] 10/17/2024 10:00 AM EST Appointment [facility] PET Scan [address] [place] [address] 10/17/2024 11:00 AM EST Office Visit Pav CC Head, Neck & Respiratory 800 [facility], 2nd [place] [phone] Juan Pablo Cee MD [address] [facility] [address] [place] [address] 10/17/2024 1:00 PM EST Clinical Support Pav CC Head, Neck & Respiratory 800 [facility], 2nd [place] [address] 10/17/2024 2:20 PM EST Appointment P[facility] G Radiology [address] [place] [address] 10/20/2024 3:30 PM EST Office Visit Pav CC Head, Neck & Respiratory 800 [facility], [address] [place] [address] Germaine Alejandro MD 800 [facility] [address] [place] [address] documented as of this encounter Procedures Procedure Name Priority Date/Time Associated Diagnosis Comments RAD ONC ARIA SESSION SUMMARY Routine 12/25/2022 12:49 PM EDT documented in this encounter Results * Rad Onc Aria Session Summary (12/25/2022 12:49 PM EDT) Course ID C1 ARIA RADIATION ONCOLOGY Course Intent Curative ARIA RADIATION ONCOLOGY Course Start Date 10/30/2022 3:11 PM ARIA RADIATION ONCOLOGY Course First Treatment Date 11/11/2022 11:30 AM ARIA RADIATION ONCOLOGY Course Last Treatment Date 12/25/2022 12:42 PM ARIA RADIATION ONCOLOGY Course Elapsed Days 44 ARIA RADIATION ONCOLOGY Reference Point ID RtOropharyn+Neck ARIA RADIATION ONCOLOGY Reference Point Dosage Given to Date 64 Gy ARIA RADIATION ONCOLOGY Reference Point Session Dosage Given 2 Gy ARIA RADIATION ONCOLOGY Plan ID RtOropharynx ARIA RADIATION ONCOLOGY Plan Name H&N ARIA RADIATION ONCOLOGY Plan Fractions Treated to Date 32 ARIA RADIATION ONCOLOGY Plan Total Fractions Prescribed 35 ARIA RADIATION ONCOLOGY Plan Prescribed Dose Per Fraction 2 Gy ARIA RADIATION ONCOLOGY Plan Total Prescribed Dose 7,000 CGy ARIA RADIATION ONCOLOGY Plan Primary Reference Point RtOropharyn+Neck ARIA RADIATION ONCOLOGY 12/25/2022 12:4 9 PM EDT Physician Radiation Oncology RADIATION ONCOLO GY ORDERABLES Final Result ARIA RADIATION ONCOLOGY documented in this encounter Visit Diagnoses Not on filedocumented in this encounter Additional Health Concerns Assessment Noted Time A fall risk assessment has been complete d for the patient 12/25/2022 11:22 AM EDT documented as of this encounter Care Teams Helper Teacher Relationship Specialty Start Date End Date Manjit Gorman MD [address] [place] [address] PCP - General 09/23/22 Olegario Juarez MD [address] [address] Consulting Physician Radiation Oncology 10/29/2207/05 documented as of this encounter
--- OUTSIDE RECORDS SUMMARY | 2024-07-27 06:53 | XMS_ITS | Encounter Summary ---
Author Organization [facility] Address [address] [place] [id number] Care Team Providers Care Cnc Mill Set Up Operator Name Role Phone Manjit Gorman MD Primary Care Provider [phone] Olegario Juarez MD Unavailable [phone] Encounter Details Date Type Department Care Team (Latest Contact Info) Description 12/25/2022 11:43 AM EDT - 12/25/2022 11:59 PM EDT Hospital Encounter [facility] Radiation [address] [place] [address] Discharge Disposition: Still a Patient Social History [...] PM EDT documented as of this encounter Medications [...] by mouth 3 (three) times a day. [address]294 mL 2 11/17/2022 3 dexamethasone (Decadron) 4 [...] Pav CC Head, Neck & Respiratory 800 [facility], 2nd [place] [address] 10/17/2024 9:00 AM EST Appointment [facility] PET Scan 800 [place] [address] 10/17/2024 10:00 AM EST Appointment [facility] PET Scan [address] [place] [address] 10/17/2024 11:00 AM EST Office Visit Pav CC Head, Neck & Respiratory 800 [facility], [address]nd [place] [address] Juan Pablo Cee MD [address] [facility] [address] [place] [address] 10/17/2024 1:00 PM EST Clinical Support Pav CC Head, Neck & Respiratory 800 [facility], [address]nd [place] [address] 10/17/2024 2:20 PM EST Appointment P[facility] G Radiology [address] [place] [address] 10/20/2024 3:30 PM EST Office Visit Pav CC Head, Neck & Respiratory 800 [facility], [address]nd [place] [address] Germaine Alejandro MD 800 [facility] [address] [place] [address] documented as of this encounter Visit Diagnoses Not on filedocumented in this encounter Additional Health Concerns Assessment Noted Time A fall risk assessment has been complete d for the patient 12/25/2022 11:22 AM EDT documented as of this encounter Care Teams Cnc Mill Set Up Operator Relationship Specialty Start Date End Date Manjit Gorman MD [address] [place], [place] [address] PCP - General 09/23/22 Olegario Juarez MD 800 [facility] [address] [place] [address] Consulting Physician Radiation Oncology 10/29/2207/05 documented as of this encounter
--- OUTSIDE RECORDS SUMMARY | 2024-07-27 06:53 | XMS_ITS | Encounter Summary ---
Author Organization [facility] Address [address] [place] [id number] Care Team Providers Care Compressed Gases Tester Name Role Phone Manjit Gorman MD Primary Care Provider [phone] Olegario Juarez MD Unavailable [phone] Reason for Visit * Episode Based Medications (Routine) - Closed Specialty Diagnoses / Procedures Referred By Contac t Referred To Contact Diagnoses Cancer of base of tongue (CMS/HCC) Germaine Alejandro MD [address] [address] Phone: tel: fax: [facility] [address] [place] [address] Phone: tel: Referral ID Status Reason Start Date Expiration Date Visits Re quested Visits Authorized [id number] Closed 11/10/2022 05/11/2024 1 9 Encounter Details Date Type Department Care Team (Latest Contact Info) Description 12/26/2022 9:27 AM EDT - 12/26/2022 12:11 PM EDT Hospital Encounter [facility] H Infusion 800 [place] [address] 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) Discharge Disposition: Home or Self Care Social [...] Sign Reading Time Taken Comments Blood Pressure 109/66 12/26/2022 9:28 AM EDT Pulse 80 12/26/2022 9:28 AM EDT Temperature 36.8 ??C (98.3 ??F) 12/26/2022 9:28 AM ED T Respiratory Rate 16 12/26/2022 9:28 AM EDT Oxygen Saturation 99% 12/26/2022 9:28 AM EDT Inhaled Oxygen Concentration - - Weight 73.4 kg (161 lb 13.1 oz) 12/26/2022 9:28 AM EDT Height 188 cm (6' 2 ) 12/26/2022 9:28 AM EDT Body Mass Index 20.78 12/26/2022 9:28 AM EDT documented in this [...] by mouth 3 (three) times a day. [address]41 mL 2 11/17/2022 3 dexamethasone (Decadron) 4 [...] Upcoming Encounters Date Type Department Care Team ([facility] st Contact Info) Description 10/17/2024 8:00 AM EST Clinical Support Pav CC Head, Neck & Respiratory [address] [address] 10/17/2024 9:00 AM EST Appointment [facility] PET Scan [address] [place] [address] 10/17/2024 10:00 AM EST Appointment [facility] PET Scan [address] [place] [address] 10/17/2024 11:00 AM EST Office Visit Pav Head, Neck & Respiratory [address] [address] Juan Pablo Cee MD [address] [place] [address] 10/17/2024 1:00 PM EST Clinical Support Pav CC Head, Neck & Respiratory [address] [address] 10/17/2024 2:20 PM EST Appointment PAV G Radiology [address] [place] [address] 10/20/2024 3:30 PM EST Office Visit Pav CC Head, Neck & Respiratory [address] [facility], [address]nd [place] [address] Germaine Alejandro MD [address] 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 1.99 m2 Treatment Plan BSA from Recorded weight), Intravenous, at 670 mL/hr, Administer over 1 Hours, Once, Protect from light. Hazardous Tier 1 Irritant, On Thu12/26/22 at 1030, For 1 dose, In 500 mL NSIndications:Cancer of base of tongue (CMS/HCC) New 12/26/2022 11:06 AM EDT 100 mg 670 mL/hr dexamethasone (Decadron) tablet 12 mg 12 mg, Oral, Once, 1 dose, On Thu12/26/22 at 1000, RoutineIndications:Cancer of base of tongue (CMS/HCC) Given 12/26/2022 9:48 AM EDT 12 mg ondansetron ODT (Zofran-ODT) disintegrating tablet 16 mg 16 mg, Oral, Once, 1 dose, On Thu12/26/22 at 1000, RoutineIndications:Cancer of base of tongue (CMS/HCC) Given 12/26/2022 9:48 AM EDT 16 mg sodium chloride 0.9 % with magnesium sulfate 2 g 1,000 mL infusion 999 mL/hr, Intravenous, Once, 1 dose, On Thu12/26/22 at 1000, RoutineIndications:Cancer of base of tongue (CMS/HCC) New Bag 12/26/2022 9:58 AM EDT 999 mL/hr 999 mL/hr sodium chloride 0.9 % with magnesium sulfate 2 g 1,000 mL infusion 999 mL/hr, Intravenous, Once, 1 dose, On Thu12/26/22 at 1130, RoutineIndications:Cancer of base of tongue (CMS/HCC) New Bag 12/26/2022 12:07 PM EDT 999 mL/hr 999 mL/hr documented in this encounter Additional Health Concerns Assessment Noted Time A fall risk assessment has been complete d for the patient 12/25/2022 11:22 AM EDT documented as of this encounter Care Teams Compressed Gases Tester Relationship Specialty Start Date End Date Manjit Gorman MD [address] [place], [place] [id number] PCP - General 09/23/22 Olegario Juarez MD [address] [phone] Consulting Physician Radiation Oncology 10/29/2207/05 documented as of this encounter
--- OUTSIDE RECORDS SUMMARY | 2024-07-27 06:53 | XMS_ITS | Encounter Summary ---
Author Organization [facility] Address [address] [place] [address] Care Team Providers Care Inspector Advanced Composite Name Role Phone Manjit Gorman MD Primary Care Provider [phone] Olegario Juarez MD Unavailable [phone] Encounter Details Date Type Department Care Team (Late Contact Info) Description 12/30/2022 Orders Only [facility] Radiation [id number] [place] [address] Radiation Oncology, Physician, [address] [place], [place] [id number] Social History Tobacco Use Types Packs/Day Years [...] & Respiratory [address], [address] [place] [address] 10/17/2024 9:00 AM EST Appointment [facility] PET Scan 800 [place] [phone] 10/17/2024 10:00 AM EST Appointment [facility] PET Scan 800 [place] [address] 10/17/2024 11:00 AM EST Office Visit [facility] Head, Neck & Respiratory [address] [facility], 2nd [place] [address] Juan Pablo Cee MD [address] [facility] [address] [place] [phone] 10/17/2024 1:00 PM EST Clinical Support [facility] Head, Neck & Respiratory [address] [facility], [address] [place] [address] 10/17/2024 2:20 PM EST Appointment [facility] Radiology [address] [place] [address] 10/20/2024 3:30 PM EST Office Visit [facility] Head, Neck & Respiratory [address] [facility], [address] [place] [address] Germaine Alejandro MD 800 [facility] [address] [place] [phone] documented as of this encounter Procedures Procedure Name Priority Date/Time Associated Diagnosis Comments RAD ONC ARIA SESSION SUMMARY Routine 12/30/2022 1:03 PM EDT documented in this encounter Results * Rad Onc Aria Session Summary (12/30/2022 1:03 PM EDT) Course ID C1 ARIA RADIATION ONCOLOGY Course Intent Curative ARIA RADIATION ONCOLOGY Course Start Date 10/30/2022 3:11 PM ARIA RADIATION ONCOLOGY Course First Treatment Date 11/11/2022 11:30 AM ARIA RADIATION ONCOLOGY Course Last Treatment Date 12/30/2022 12:57 PM ARIA RADIATION ONCOLOGY Course Elapsed Days 49 ARIA RADIATION ONCOLOGY Reference Point ID RtOropharyn+Neck ARIA RADIATION ONCOLOGY Reference Point Dosage Given to Date 70 Gy ARIA RADIATION ONCOLOGY Reference Point Session Dosage Given 2 Gy ARIA RADIATION ONCOLOGY Plan ID RtOropharynx ARIA RADIATION ONCOLOGY Plan Name H&N ARIA RADIATION ONCOLOGY Plan Fractions Treated to Date 35 ARIA RADIATION ONCOLOGY Plan Total Fractions Prescribed 35 ARIA RADIATION ONCOLOGY Plan Prescribed Dose Per Fraction 2 Gy ARIA RADIATION ONCOLOGY Plan Total Prescribed Dose 7,000 CGy ARIA RADIATION ONCOLOGY Plan Primary Reference Point RtOropharyn+Neck ARIA RADIATION ONCOLOGY 12/30/2022 1:03 PM EDT Physician Radiation Oncology RADIATION ONCOLO GY ORDERABLES Final Result ARIA RADIATION ONCOLOGY documented in this encounter Visit Diagnoses Not on filedocumented in this encounter Additional Health Concerns Assessment Noted Time A fall risk assessment has been complete d for the patient 12/30/2022 1:07 PM EDT documented as of this encounter Care Teams Inspector Advanced Composite Relationship Specialty Start Date End Date Manjit Gorman MD [address] [place] [address] PCP - General 09/23/22 Olegario Juarez MD [address] [address] Consulting Physician Radiation Oncology 10/29/2207/05 documented as of this encounter
--- OUTSIDE RECORDS SUMMARY | 2024-07-27 06:53 | XMS_ITS | Encounter Summary ---
Author Organization [facility] Address [address] [id number] Care Team Providers Care Test Lab Technician Name Role Phone Manjit Gorman MD Primary Care Provider [phone] Olegario Juarez MD Unavailable [phone] Encounter Details Date Type Department Care Team (Latest Contact Info) Description 12/30/2022 12:47 PM EDT - 12/30/2022 1:00 PM EDT Hospital Encounter [facility] Radiation [id number] [place] [address] Discharge Disposition: Still a Patient Social History [...] by mouth 3 (three) times a day. 97915 mL 2 11/17/2022 3 dexamethasone (Decadron) 4 [...] Pav CC Head, Neck & Respiratory 800 [facility], 2nd [place] [address] 10/17/2024 9:00 AM EST Appointment [facility] PET Scan 800 [place] [address] 10/17/2024 10:00 AM EST Appointment [facility] PET Scan 800 [place] [address] 10/17/2024 11:00 AM EST Office Visit [facility] Head, Neck & Respiratory 800 [facility], 2nd [place] [address] Juan Pablo Cee MD [address] [facility] [address] [place] [address] 10/17/2024 1:00 PM EST Clinical Support Pav CC Head, Neck & Respiratory 800 [facility], 2nd [place] [address] 10/17/2024 2:20 PM EST Appointment [facility] Radiology [address] [place] [address] 10/20/2024 3:30 PM EST Office Visit [facility] CC Head, Neck & Respiratory 800 [facility], 2nd [place] [address] Germaine Alejandro MD 800 [facility] [address] [place] [address] documented as of this encounter Visit Diagnoses Not on filedocumented in this encounter Additional Health Concerns Assessment Noted Time A fall risk assessment has been complete d for the patient 12/30/2022 1:07 PM EDT documented as of this encounter Care Teams Test Lab Technician Relationship Specialty Start Date End Date Manjit Gorman MD [address] [place], [place] [phone] PCP - General 09/23/22 Olegario Juarez MD 800 [facility] [address] [place] [address] Consulting Physician Radiation Oncology 10/29/2207/05 documented as of this encounter
--- OUTSIDE RECORDS SUMMARY | 2024-07-27 06:53 | XMS_ITS | Encounter Summary ---
Author Organization [facility] Address [address] [place] [address] Care Team Providers Care Stripper Color Name Role Phone Manjit Gorman MD Primary Care Provider [phone] Olegario Juarez MD Unavailable [phone] Encounter Details Date Type Department Care Team (Latest Contact Info) Description 12/25/2022 Travel Social History Tobacco Use Types Packs/Day [...] [facility] Head, Neck & Respiratory 800 [facility], 2nd [place] [address] 10/17/2024 9:00 AM EST Appointment [facility] PET Scan 800 [place] [address] 10/17/2024 10:00 AM EST Appointment [facility] PET Scan 800 [place] [address] 10/17/2024 11:00 AM EST Office Visit [facility] Head, Neck & Respiratory 800 [facility], 2nd [place] [address] Juan Pablo Cee MD [address] [facility] [address] [place] [address] 10/17/2024 1:00 PM EST Clinical Support [facility] CC Head, Neck & Respiratory 800 [facility], 2nd [place] [address] 10/17/2024 2:20 PM EST Appointment [facility] Radiology [address] [place] [address] 10/20/2024 3:30 PM EST Office Visit [facility] Head, Neck & Respiratory 800 [facility], [address]nd [place] [address] Germaine Alejandro MD [address] [place] [address] documented as of this encounter Visit Diagnoses Not on filedocumented in this encounter Additional Health Concerns Assessment Noted Time A fall risk assessment has been complete d for the patient 12/25/2022 11:22 AM EDT documented as of this encounter Care Teams Stripper Color Relationship Specialty Start Date End Date Manjit Gorman MD [address] [place], [place] [phone] PCP - General 09/23/22 Olegario Juarez MD [address] [facility] [address] [place] [phone] Consulting Physician Radiation Oncology 10/29/2207/05 documented as of this encounter
--- OUTSIDE RECORDS SUMMARY | 2024-07-27 06:53 | XMS_ITS | Encounter Summary ---
Author Organization [facility] Address [address] [place] [address] Care Team Providers Care [employer] Assistant Football Coach Name Role Phone Manjit Gorman MD Primary Care Provider [phone] Olegario Juarez MD Unavailable [phone] Encounter Details Date Type Department Care Team ([facility] Contact Info) Description 02/11/2023 Orders Only [facility] Head, Neck & Respiratory [address] [phone] Kenzie Pardo Research subject (Primary Dx) Social History Tobacco Use Types [...] CC Head, Neck & Respiratory [address] [phone] 10/17/2024 9:00 AM EST Appointment [facility] PET Scan 800 [place] [address] 10/17/2024 10:00 AM EST Appointment [facility] PET Scan 800 [place] [address] 10/17/2024 11:00 AM EST Office Visit [facility] Head, Neck & Respiratory 800 [facility], [address]nd [place] [address] Juan Pablo Cee MD [address] [facility] [address] [place] [address] 10/17/2024 1:00 PM EST Clinical Support [facility] CC Head, Neck & Respiratory 800 [facility], [address] [place] [address] 10/17/2024 2:20 PM EST Appointment [facility] Radiology [address] [place] [address] 10/20/2024 3:30 PM EST Office Visit [facility] CC Head, Neck & Respiratory 800 [facility], [address] [place] [phone] Germaine Alejandro MD 800 [facility] [address] [place] [address] documented as of this encounter Visit Diagnoses Diagnosis Research subject- Primary documented in this encounter Additional Health Concerns Assessment Noted Time A fall risk assessment has been complete d for the patient 02/04/2023 3:49 PM EDT documented as of this encounter Care Teams [employer] Assistant Football Coach Relationship Specialty Start Date End Date Manjit Gorman MD [address] [place], [place] [phone] PCP - General 09/23/22 Olegario Juarez MD 800 [facility] [address] [place] [address] Consulting Physician Radiation Oncology 10/29/2207/05 documented as of this encounter
--- OUTSIDE RECORDS SUMMARY | 2024-07-27 06:53 | XMS_ITS | Encounter Summary ---
Author Organization [facility] Address [address] [place] [address] Care Team Providers Care Title Clerk Name Role Phone Manjit Gorman MD Primary Care Provider [phone] Olegario Juarez MD Unavailable [phone] Reason for Referral * Consultation (Routine) - Closed Specialty Diagnoses / Procedures Referred By Terri t Referred To Contact Audiology Diagnoses Cancer of base of tongue (CMS/HCC) CINV (chemotherapy-induced nausea and vomiting) Neoplasm related pain Germaine Alejandro MD [address] [address] Phone: tel: fax: Referral ID Status Reason Start Date Expiration Date V isits Requested Visits Authorized [id number] Closed Consult and Treat 12/25/2022 06/25/2024 1 1 Scheduling Instructions Hearing loss after cisplatin, please eval and treat * Imaging (Routine) - Closed Specialty Diagnoses / Procedures Referred By Terri t Referred To Contact Radiology Diagnoses Cancer of base of tongue (CMS/HCC) Procedures CT Soft Tissue Neck w IV Contrast Germaine Alejandro MD [address] [address] Phone: tel: fax: Referral ID Status Reason Start Date Expiration Date Visits Re quested Visits Authorized [id number] Closed 12/24/2022 06/24/2024 1 1 * Imaging (Routine) - Closed Specialty Diagnoses / Procedures Referred By Bradleyac t Referred To Contact Radiology Diagnoses Cancer of base of tongue (CMS/HCC) Procedures CT Abdomen Pelvis w IV Contrast Germaine Alejandro MD [address] [address] Phone: tel: fax: Referral ID Status Reason Start Date Expiration Date Visits Re quested Visits Authorized [id number] Closed 12/24/2022 06/24/2024 1 1 * Imaging (Routine) - Closed Specialty Diagnoses / Procedures Referred By Terri del rosario Referred To Contact Radiology Diagnoses Cancer of base of tongue (CMS/HCC) Procedures CT Chest w IV Contrast Germaine Alejandro MD [address] [facility] [address] [address] Phone: tel: fax: Referral ID Status Reason Start Date Expiration Date Visits Re quested Visits Authorized [id number] Closed 12/24/2022 06/24/2024 1 1 Reason for Visit * Reason Comments Follow-up * Episode Based Medications (Routine) - Closed Specialty Diagnoses / Procedures Referred By Terri t Referred To Contact Diagnoses Cancer of base of tongue (CMS/HCC) Germaine Alejandro MD [address] [address] Phone: tel: fax: [facility] [address] [place] [address] Phone: tel: Referral ID Status Reason Start Date Expiration Date Visits Re quested Visits Authorized [id number] Closed 11/10/2022 05/11/2024 1 9 Encounter Details Date Type Department Care Team (Late st Contact Info) Description 12/25/2022 11:30 AM EDT Office Visit Pav [facility] Head, Neck & Respiratory 800 [facility], [address]nd [place] [address] Germaine Alejandro MD [address] [facility] [address] [place] [address] 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); CINV (chemotherapy-induced nausea and vomiting); Neoplasm related pain; Mixed conductive and sensorineural hearing loss of both ears Social History Tobacco Use Types Packs/Day Years [...] PM EDT documented as of this encounter Last Filed Vital Signs Vital Sign Reading Time Taken Comments Blood Pressure 121/72 12/25/2022 11:24 AM EDT Pulse 87 12/25/2022 11:24 AM EDT Temperature 36.6 ??C (97.8 ??F) 12/25/2022 11:24 AM E DT Respiratory Rate 16 12/25/2022 11:24 AM EDT Oxygen Saturation 99% 12/25/2022 11:24 AM EDT Inhaled Oxygen Concentration - - Weight 73.7 kg (162 lb 7.7 oz) 12/25/2022 11:24 AM EDT Height 188 cm (6' 2.02 ) 12/25/2022 11:24 AM EDT Body Mass Index 20.85 12/25/2022 11:24 AM EDT documented in this encounter Miscellaneous Notes * Progress Notes - Germaine Alejandro MD - 12/25/2022 11:30 AM EDT MEDICAL ONCOLOGY FOLLOW-UP NOTE Patient Information Patient Name: Erick Sierra Date of : 1950 REFERRING PHYSICIAN: Manjit Gorman MD Encounter Date: 12/25/2022 Treatment Diagnosis: Cancer Staging Cancer of base of tongue (CMS/HCC) Staging form: Pharynx - HPV-Mediated Oropharynx, AJCC 8th Edition - Clinical stage from 10/29/2022: Stage I (cT2, cN1, cM0, p16+) - Signed by Germaine Alejandro MD on 11/10/2022 History of Present Illness: Erick Sierra is a 72 y.o. male who returns for followup of his Cancer Staging Cancer of base of tongue (CMS/HCC), Staging form: Pharynx - HPV-Mediated Oropharynx, AJCC 8th Edition, Clinical: Stage I. he returns for followup after treatment of head and neck cancer. 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 CT Chest 10/21/22 showed no metastatic disease. PET/CT 10/21/22 demonstrated a hypermetabolic RIGHT BOT mass and hypermetabolic RIGHT level IIA (2cm) and IIB (0.7cm) nodes. Cancer of base of tongue (CMS/HCC) 10/29/2022 Initial Diagnosis Cancer of base of tongue (CMS/HCC) 10/29/2022 Cancer Staged Staging form: Pharynx - HPV-Mediated Oropharynx, AJCC 8th Edition, Clinical stage from 10/29/2022: Stage I (cT2, cN1, cM0, p16+) - Signed by Germaine Alejandro MD on 11/10/2022 11/14/2022 - Chemotherapy CISplatin (Platinol) 208 mg in sodium chloride 500 mL chemo IV, 100 mg/m2 = 208 mg, Intravenous, Once, 2 of 3 cycles Dose modification: 50 mg/m2 (original dose 100 mg/m2, Cycle 3) Administration: 208 mg (11/14/2022), 208 mg (12/05/2022) aprepitant (Cinvanti) 130 MG/18ML IV 130 mg, 130 mg, Intravenous, Once, 2 of 3 cycles Administration: 130 mg (11/14/2022), 130 mg (12/05/2022) 11/17/2022 - Radiation Therapy The patient saw Olegario Juarez MD for radiation treatment. This is the current list of radiation treatment: Radiation Treatments No radiation treatments to show. (Treatments may have been administered in another system.) Currently, he denies fever, or chills, nausea, vomiting, but has slime in his mouth, which gags him and throat pain, dysphagia, and new hearing loss. He denies shortness of breath, cough, sputum production, mental status changes, neuropathy. Problem List and Medications Reviewed in this encounter by me personally No questionnaires on file. Objective Performance Status 0: Fully active, able to carry on all pre-disease performance without restriction Blood pressure 121/72, pulse 87, temperature 36.6 ??C (97.8 ??F), temperature source Oral, resp. rate 16, height 1.88 m (6' 2.02 ), weight 73.7 kg (162 lb 7.7 oz), SpO2 99 %. EXAM Physical Exam Constitutional: General: He is not in acute distress. Appearance: He is not ill-appearing. HENT: Head: Normocephalic and atraumatic. Right Ear: External ear normal. Left Ear: External ear normal. Nose: Nose normal. Mouth/Throat: Mouth: Mucous membranes are dry. Pharynx: Posterior oropharyngeal erythema present. No oropharyngeal exudate. Eyes: Extraocular Movements: Extraocular movements intact. Pupils: Pupils are equal, round, and reactive to light. Neck: Comments: Palpable right side LAD, nontender Cardiovascular: Rate and Rhythm: Normal rate and regular rhythm. Heart sounds: No murmur heard. No friction rub. No gallop. Pulmonary: Effort: Pulmonary effort is normal. No respiratory distress. Breath sounds: Normal breath sounds. No stridor. No wheezing, rhonchi or rales. Abdominal: General: Bowel sounds are normal. There is no distension. Tenderness: There is no abdominal tenderness. Musculoskeletal: General: No swelling. Normal range of motion. Cervical back: No tenderness. Right lower leg: No edema. Left lower leg: No edema. Lymphadenopathy: Cervical: No cervical adenopathy. Skin: General: Skin is warm and dry. Findings: No erythema or rash. Neurological: Mental Status: He is alert. Cranial Nerves: No cranial nerve deficit or dysarthria. Sensory: No sensory deficit. Gait: Gait normal. Psychiatric: Mood and Affect: Mood normal. Behavior: Behavior normal. LABORATORIES STUDIES: reviewed by me personally today to monitor for cancer related drug toxicity and treatment related [facility] toxicity CBC WBC 2.33 Hgb 12.5 PLT 216 HCT 36.3 Lab Results Component Value Date NEUTROABS 1.48 (L) 12/24/2022 BMPL Na 137 Cl 102 BUN 17 Gluc 100 K 5.6 Co2 24 Creat 1.18 LIVER FUNCTION TESTING Tot Prot 6.4 AST 23 Tot bili 0.3 ALT 16 Alkphos 69 Ca 9.5 Mg 1.8 Lab Results Component Value Date TSH 1.45 11/10/2022 Assessment/Plan 1. Cancer management : Erick Sierra is a 72 y.o. male with Cancer Staging Cancer of base of tongue (CMS/HCC), Staging form: Pharynx - HPV-Mediated Oropharynx, AJCC 8th Edition, Clinical: Stage I with metastasis to lymph nodes. This represents a life threatening illness forwhich urgent cancer treatment is indicated. - Squamous cancer of BOT undergoing Cisplatin and radiation. - I reviewed liver and renal function as well as bone marrow function in relationship to this patient's ability to tolerate systemic cancer treatment - Proceed with final dose of cisplatin chemo but at a 50% dose reduction and proceed with audiogramand RTC in 6-8 W with labs/scans 2. Pain related to neoplasm: - Continue gabapentin for throat pain - If the patient continues to experience pain directly related to their neoplasm requiring monitoring and adjustments in dosage and frequency of narcotic and adjunctive medications by . RL report reviewed and will be reviewed periodically. 3. Anticipated Chemotherapy Induced Nausea: - I prescribed ondansetron, compazine and will monitor for nausea and vomiting. 4. Increased mucus production - Continue using salt and soda mouthwash Orders Placed This Encounter Procedures CBC and differential Comprehensive metabolic panel Magnesium Germaine Alejandro MD Orders Placed This Encounter Procedures CT Chest w IV Contrast CT Abdomen Pelvis w IV Contrast CT Soft Tissue Neck w IV Contrast CBC and Differential Comprehensive Metabolic Panel, Plasma Thyroid Stimulating Hormone, Plasma Ambulatory referral to Audiology * Progress Notes - Rowan Bateman, PharmD - 12/25/2022 11:30 AM EDT Pharmacy Hematology/Oncology Treatment Follow-Up Note Felecia Sierra is a 72 y.o. male with Cancer Staging Cancer of base of tongue (CMS/HCC) Staging form: Pharynx - HPV-Mediated Oropharynx, AJCC 8th Edition - Clinical stage from 10/29/2022: Stage I (cT2, cN1, cM0, p16+) - Signed by Germaine Alejandro MD on 11/10/2022 . Treatment Plan reviewed for Cisplatin Q21 days regimen. [x] Follow-Up Clinical Review for Cycle 3 Interval History: 12/04/22 - patient doing well without significant N/V and no hearing changes, will continue same 12/25/22 - patient doing okay but does have some complaints of hearing loss. He will complete his final cycle tomorrow with dose reduction. Dosing Wt: 83.7 kg Dosing Ht: 185 cm DosingBSA: 2.08 m2 Recent Labs: Lab Results Component Value Date WBC 2.33 (L) 12/24/2022 HGB 12.5 (L) 12/24/2022 HCT 36.3 (L) 12/24/2022 MCV 89 12/24/2022 PLT 216 12/24/2022 Lab Results Component Value Date GLUCOSE 100 (H) 12/24/2022 CALCIUM 9.5 12/24/2022 NA 137 12/24/2022 K 5.6 (H) 12/24/2022 CO2 24 12/24/2022 CL 102 12/24/2022 BUN 17 12/24/2022 CREATININE 1.18 12/24/2022 Lab Results Component Value Date ALT 16 12/24/2022 AST 23 12/24/2022 ALKPHOS 69 12/24/2022 BILITOT 0.3 12/24/2022 Lab Results Component Value Date NEUTROABS 1.48 (L) 12/24/2022 Lab Results Component Value Date MG 1.8 (L) 12/24/2022 Lab Results Component Value Date TSH 1.45 11/10/2022 No results found for: URINEPRO Vitals: Visit Vitals BP 121/72 (BP Location: Left arm, Patient Position: Sitting, BP Cuff Size: Adult) Pulse 87 Temp 36.6 ??C (97.8 ??F) (Oral) Resp 16 Other Relevant Monitoring: Study Patient: no Treatment Plan: Cisplatin 50 mg/m2 (104 mg) IV D1 Every 21 days [x] 50% dose adjustment for cisplatin made for hearing loss Current Treatment Plan History: HD cisplatin + XRT C1: 11/14/22 C2: 12/05/22 C3: 12/26/22 Prior Treatment History: N/a Assessment/Plan: Patient will return to clinic in 8 weeks with scans and audiogram. Will follow- up at that time. Pharmacist Attestation: Rowan Bateman PharmD 12/25/2022 11:28 AM Cosigned by John Giraldo, PharmIsael at 12/25/2022 2:44 PM EDT Associated attestation - John Giraldo PharmD - 12/25/2022 2:44 PM EDT John Giraldo PharmD, BCOP Oncology Clinical Pharmacist documented in this encounter Plan of Treatment Upcoming Encounters Date Type Department Care Team ([facility] st Contact Info) Description 10/17/2024 8:00 AM EST Clinical Support Pav CC Head, Neck & Respiratory [address] [place] [address] 10/17/2024 9:00 AM EST Appointment [facility] PET Scan [address] [place] [phone] 10/17/2024 10:00 AM EST Appointment [facility] PET Scan [address] [place] [address] 10/17/2024 11:00 AM EST Office Visit Pav CC Head, Neck & Respiratory 800 [facility], [address] [place] [address] Juan Pablo Cee MD [address] [facility] [address] [place] [address] 10/17/2024 1:00 PM EST Clinical Support Pav [facility] Head, Neck & Respiratory [address] [phone] 10/17/2024 2:20 PM EST Appointment [facility] [address] [place] [address] 10/20/2024 3:30 PM EST Office Visit Pav CC Head, Neck & Respiratory [address] [address] Germaine Alejandro MD 800 [facility] [address] [place] [address] Scheduled Referrals Name Type Priority Associated Diagnoses Order Schedule Ambulatory referral to Audiology Outpatient Referral Routine Cancer of base of tongue (CMS/HCC) CINV (chemotherapy-induc ed nausea and vomiting) Neoplasm related pain Expected: 02/19/2023, Expires: 06/26/2024 documented as of this encounter Results * [...] error, please notify the sender immediately at [phone] and permanently delete the original report and destroy any copies or printouts. Narrative 02/20/2023 1:59 PM EDT [facility] ? - Phone Outpatient NAME: Erick Sirera ?? DATE OF EXAM: 02/19/2023 Patient No: ??[id number] Physician: ??Javon^Germaine Date of : ??1950 Past Medical/Surgical History (entered by technologist): ?? Symptoms/Reason For Exam (entered by technologist): ??Cancer of base of tongue Tech Notes (entered by technologist): iohexol (OMNIPaque) 300 MG/ML injection 100 mL Additional History (per [facility]): Per the electronic medical record: Base of tongue squamous cell carcinoma, [id number]. Radiation therapy, chemotherapy. Automated exposure control was [...] Sierra DATE OF EXAM: 02/19/2023 Patient No: [id number] Physician: Radu Date of : 1950 Past Medical/Surgical History (entered by technologist): Symptoms/Reason For Exam (entered by technologist): Cancer of base oftongue Tech Notes (entered by technologist): iohexol (OMNIPaque) 300 MG/MLinjection 100 mL Additional History (per [facility]): Per the electronic medicalrecord: Base of tongue squamous cell carcinoma, [id number]. Radiationtherapy, chemotherapy. Automated exposure control was used [...] in error, pleasenotify the sender immediately at [phone] and permanently delete theoriginal report and destroy [...] Veto Bautista MD on 02/19/2023 3:48 PM Germaine Alejandro MD IMG CT PROCEDURES Final Resu lt * Thyroid Stimulating Hormone, Plasma (02/19/2023 12:50 PM EDT) Thyroid Stimulating Hormone, Plasma 1.82 0.40 - 4.20 uIU/mL 02/19/2023 1:43 PM EDT [facility] Blood Venous blood specimen / Unknown Venipuncture / Unknown 02/19/2023 12:50 PM EDT 02/19/2023 1:05 PM EDT us Germaine Alejandro MD LAB BLOOD ORDERABLES Final R esult [facility] [address] [place] [address] * (ABNORMAL) Comprehensive Metabolic Panel, Plasma (02/19/2023 12:50 PM EDT) Glucose, Plasma 87 74 - 99 mg/dL 02/19/2023 1:43 PM ED[address] [facility] BUN, Plasma 20 8 - 23 mg/dL 02/19/2023 1:43 PM EDT [facility] Creatinine, Plasma 1.07 0.80 - 1.30 mg/dL 02/19/2023 1:43 PM EDT [facility] BUN/Creatinine Ratio 19 02/19/2023 1:43 PM EDT [facility] Sodium, Plasma 139 136 - 145 mmol/L 02/19/2023 1:43 PM EDT [facility] Potassium, Plasma 4.4 3.7 - 4.8 mmol/L 02/19/2023 1:43 PM EDT [facility] Chloride, Plasma 104 97 - 107 mmol/L 02/19/2023 1:43 PM EDT [facility] CO2, Plasma 24 22 - 29 mmol/L 02/19/2023 1:43 PM EDT [facility] Anion Gap 11 6 - 16 mmol/L 02/19/2023 1:43 PM EDT [facility] Total Calcium, Plasma 9.1 8.9 - 10.2 mg/dL 02/19/2023 1:43 PM EDT [facility] Total Protein 6.2(L) 6.3 - 7.9 g/dL 02/19/2023 1:43 PM EDT [facility] Albumin, Plasma 4.1 3.5 - 5.2 g/dL 02/19/2023 1:43 PM EDT [facility] AST, Plasma 17(L) 19 - 48 U/L 02/19/2023 1:43 PM EDT [facility] ALT, Plasma 12 11 - 41 U/L 02/19/2023 1:43 PM EDT [facility] Alkaline Phosphatase, Plasma 55 40 - 115 U/L 02/19/2023 1:43 PM EDT [facility] Total Bilirubin, Plasma 0.4 0.2 - 1.1 mg/dL 02/19/2023 1:43 PM EDT [facility] eGFRcr 73.7 mL/min/1.7 3m*2 02/19/2023 1:43 PM ED[address] [facility] Comment: Reported eGFRcr in mL/min/1.73m2 is based the CKD-EPI 2021 equation that does not use a race coefficient. Effective 04/02/22 our laboratory changed the eGFR calculation to the CKD-EPI 2021 equation from the previously reported eGFR, based on the MDRD equation. ??For comparisons between the two equations, please see laboratory website: ??[email or web address] Blood Venous blood specimen / Unknown Venipuncture / Unknown 02/19/2023 12:50 PM EDT 02/19/2023 1:05 PM EDT Germaine Alejandro MD LAB BLOOD ORDERABLES Final R esult Performing Organization Address City/State/[facility] Co de Phone Number [facility] [address] [place] [address] * (ABNORMAL) CBC and Differential (02/19/2023 12:50 PM EDT) WBC Count 5.08 3.70 - 10.30 10*3/uL LAB HEMATOLOGY METHOD 02/19/2023 1:12 PM ED[address] [facility] RBC Count 3.61(L) 4.60 - 6.10 10*6/uL LAB HEMATOLOGY METHOD 02/19/2023 1:12 PM EDT [facility] HGB 11.7(L) 13.7 - 17.5 g/dL LAB HEMATOLOGY METHOD 02/19/2023 1:12 PM EDT [facility] HCT 35.0(L) 40.0 - 51.0 % LAB HEMATOLOGY METHOD 02/19/2023 1:12 PM EDT [facility] Platelet Count 247 155 - 369 10*3/uL LAB HEMATOLOGY METHOD 02/19/2023 1:12 PM EDT [facility] MCV 97 79 - 98 fL LAB HEMATOLOGY METHOD 02/19/2023 1:12 PM EDT [facility] MCH 32.4(H) 26.0 - 32.0 pg LAB HEMATOLOGY METHOD 02/19/2023 1:12 PM EDT [facility] MCHC 33.4 30.7 - 35.5 g/dL LAB HEMATOLOGY METHOD 02/19/2023 1:12 PM EDT [facility] RDW 14.8(H) 11.5 - 14.5 % LAB HEMATOLOGY METHOD 02/19/2023 1:12 PM [address] [facility] MPV 8.8 8.8 - 12.5 fL LAB HEMATOLOGY METHOD 02/19/2023 1:12 PM EDT [facility] nRBC 0.0 <=0.0 per 100 WBCs LAB HEMATOLOGY METHOD 02/19/2023 1:12 PM EDT [facility] Differential Type Automated LAB HEMATOLOGY METHOD 02/19/2023 1:12 PM EDT [facility] Neutrophils % 74.0 % LAB HEMATOLOGY METHOD 02/19/2023 1:12 PM EDT [facility] Lymphocytes % 9.0 % LAB HEMATOLOGY METHOD 02/19/2023 1:12 PM EDT [facility] Monocytes % 14.0 % LAB HEMATOLOGY METHOD 02/19/2023 1:12 PM EDT [facility] Eosinophils % 2.0 % LAB HEMATOLOGY METHOD 02/19/2023 1:12 PM EDT [facility] Basophils % 1.0 % LAB HEMATOLOGY METHOD 02/19/2023 1:12 PM EDT [facility] Immature Granulocytes % 0.0 % LAB HEMATOLOGY METHOD 02/19/2023 1:12 PM [address] [facility] Neutrophils Absolute 3.75 1.60 - 6.10 10*3/uL LAB HEMATOLOGY METHOD 02/19/2023 1:12 PM [address] [facility] Lymphocytes Absolute 0.45(L) 1.20 - 3.90 10*3/uL LAB HEMATOLOGY METHOD 02/19/2023 1:12 PM EDT [facility] Monocytes Absolute 0.70 0.30 - 0.90 10*3/uL LAB HEMATOLOGY METHOD 02/19/2023 1:12 PM ED[address] [facility] Eosinophils Absolute 0.11 0.00 - 0.50 10*3/uL LAB HEMATOLOGY METHOD 02/19/2023 1:12 PM [address] [facility] Basophils Absolute 0.05 0.00 - 0.10 10*3/uL LAB HEMATOLOGY METHOD 02/19/2023 1:12 PM [address] [facility] Immature Granulocytes Absolute 0.02 0.00 - 0.06 10*3/uL LAB HEMATOLOGY METHOD 02/19/2023 1:12 PM EDT [facility] Blood Venous blood specimen / Unknown Venipuncture / Unknown 02/19/2023 12:50 PM EDT 02/19/2023 1:04 PM EDT Narrative [facility] - 02/19/2023 1:12 PM EDT Therapeutic decision making should be based on absolute values, rather than percentages. 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
--- OUTSIDE RECORDS SUMMARY | 2024-07-27 06:53 | XMS_ITS | Encounter Summary ---
Author Organization [facility] Address [address] [place], [place] [id number] Care Team Providers Care Maintenance And Repair Worker Name Role Phone Manjit Gorman MD Primary Care Provider [phone] Olegario Juarez MD Unavailable [phone] Encounter Details Date Type Department Care Team (Latest Contact Info) Description 01/29/2023 Travel Social History Tobacco Use Types Packs/Day [...] [facility] [address] [address] 10/17/2024 9:00 AM EST Appointment [facility] PET Scan [address] [place] [address] 10/17/2024 10:00 AM EST Appointment [facility] PET Scan [address] [place] [address] 10/17/2024 11:00 AM EST Office Visit [facility] Head[facility] Neck [facility] Respiratory [address] [phone] Juan Pablo Cee MD [address] [facility] [address] [place] [phone] 10/17/2024 1:00 PM EST Clinical Support [facility] Head[facility] Neck [facility] Respiratory [address] [place] [address] 10/17/2024 2:20 PM EST Appointment [facility] [address] [place] [address] 10/20/2024 3:30 PM EST Office Visit [facility] Head[facility] Neck & Respiratory [address] [facility], [address]nd [place] [address] Germaine Alejandro MD [address] [place] [phone] documented as of this encounter Visit Diagnoses Not on filedocumented in this encounter Additional Health Concerns Assessment Noted Time A fall risk assessment has been complete d for the patient 01/20/2023 9:02 AM EDT documented as of this encounter Care Teams Maintenance And Repair Worker Relationship Specialty Start Date End Date Manjit Gorman MD [address] [place], [place] [phone] PCP - General 09/23/22 Olegario Juarez MD [address] [place] [address] Consulting Physician Radiation Oncology 10/29/2207/05 documented as of this encounter
--- OUTSIDE RECORDS SUMMARY | 2024-07-27 06:53 | XMS_ITS | Encounter Summary ---
Author Organization [facility] Address [address] [place] [address] Care Team Providers Care Tape Cutter Name Role Phone Manjit Gorman MD Primary Care Provider [phone] Olegario Juarez MD Unavailable [phone] Encounter Details Date Type Department Care Team (Late Contact Info) Description 01/01/2023 Orders Only PAV CC Radiation [address] [place] [address] Radiation Oncology, Physician, [address] [place], [place] [id number] Social History Tobacco Use Types Packs/Day Years [...] & Respiratory [address], [address]nd [place] [address] 10/17/2024 9:00 AM EST Appointment [facility] PET Scan 800 [place] [address] 10/17/2024 10:00 AM EST Appointment [facility] PET Scan 800 [place] [address] 10/17/2024 11:00 AM EST Office Visit Pav CC Head, Neck & Respiratory 800 [facility], 2nd [place] [address] Juan Pablo Cee MD [address] [facility] [address] [place] [address] 10/17/2024 1:00 PM EST Clinical Support Pav CC Head, Neck & Respiratory 800 [facility] 2nd [place] [address] 10/17/2024 2:20 PM EST Appointment PAV G Radiology [address] [place] [address] 10/20/2024 3:30 PM EST Office Visit Pav CC Head, Neck & Respiratory 800 [facility], [address] [place] [address] Germaine Alejandro MD 800 [facility] [address] [place] [address] documented as of this encounter Procedures Procedure Name Priority Date/Time Associated Diagnosis Comments RAD ONC ARIA COURSE SUMMARY Routine 01/01/2023 9:50 AM EDT documented in this encounter Results * Rad Onc Aria Course Summary (01/01/2023 9:50 AM EDT) Course ID C1 ARIA RADIATION ONCOLOGY Course Intent Curative ARIA RADIATION ONCOLOGY Course Start Date 10/30/2022 3:11 PM ARIA RADIATION ONCOLOGY Course End Date 01/01/2023 9:50 AM ARIA RADIATION ONCOLOGY Course First Treatment Date 11/11/2022 11:30 AM ARIA RADIATION ONCOLOGY Course Last Treatment Date 12/30/2022 12:57 PM ARIA RADIATION ONCOLOGY Course Elapsed Days 49 ARIA RADIATION ONCOLOGY Reference Point ID RtOropharyn+Neck ARIA RADIATION ONCOLOGY Reference Point Dosage Given to Date 70 Gy ARIA RADIATION ONCOLOGY Plan ID RtOropharynx ARIA RADIATION ONCOLOGY Plan Name RtOropharynx ARIA RADIATION ONCOLOGY Plan Fractions Treated to Date 35 ARIA RADIATION ONCOLOGY Plan Total Fractions Prescribed 35 ARIA RADIATION ONCOLOGY Plan Prescribed Dose Per Fraction 2 Gy ARIA RADIATION ONCOLOGY Plan Total Prescribed Dose 7,000 CGy ARIA RADIATION ONCOLOGY Plan Primary Reference Point RtOropharyn+Neck ARIA RADIATION ONCOLOGY 01/01/2023 9:50 AM EDT Physician Radiation Oncology RADIATION ONCOLO GY ORDERABLES Final Result ARIA RADIATION ONCOLOGY documented in this encounter Visit Diagnoses Not on filedocumented in this encounter Additional Health Concerns Assessment Noted Time A fall risk assessment has been complete d for the patient 12/30/2022 1:07 PM EDT documented as of this encounter Care Teams Tape Cutter Relationship Specialty Start Date End Date Manjit Gorman MD [address] [place] [address] PCP - General 09/23/22 Olegario Juarez MD [address] [address] Consulting Physician Radiation Oncology 10/29/2207/05 documented as of this encounter
--- OUTSIDE RECORDS SUMMARY | 2024-07-27 06:53 | XMS_ITS | Encounter Summary ---
Author Organization Address [address] [id number] Care Team Providers Care Edge Cutting Machine Operator Name Role Phone Manjit Gorman MD Primary Care Provider [phone] Olegario Juarez MD Unavailable [phone] Reason for Referral * Imaging (Routine) - Closed Specialty Diagnoses / Procedures Referred By Contac t Referred To Contact Radiology Diagnoses Cancer of base of tongue (CMS/HCC) Procedures PET/CT FDG Skull Base To Mid Thigh Juan Pablo Cee MD [id number] [place] [address] Phone: tel: fax: Referral ID Status Reason Start Date Expiration Date Visits Re quested Visits Authorized [id number] Closed 01/20/2023 07/21/2024 2 2 Reason for Visit * Reason Comments Follow-up Encounter Details Date Type Department Care Team ([facility] st Contact Info) Description 01/20/2023 9:15 AM EDT Office Visit Pav CC Head, Neck & Respiratory [address] [place] [phone] Juan Pablo Cee MD [address] [address] Cancer of base of tongue [...] Sign Reading Time Taken Comments Blood Pressure 115/65 01/20/2023 9:04 AM EDT Pulse 75 01/20/2023 9:04 AM EDT Temperature 36.8 ??C (98.2 ??F) 01/20/2023 9:04 AM ED T Respiratory Rate 16 01/20/2023 9:04 AM EDT Oxygen Saturation 100% 01/20/2023 9:04 AM EDT Inhaled Oxygen Concentration - - Weight 74.3 kg (163 lb 14.4 oz) 01/20/2023 9:04 AM EDT Height 188 cm (6' 2 ) 01/20/2023 9:04 AM EDT Body Mass Index 21.04 01/20/2023 9:04 AM EDT documented in this encounter Miscellaneous Notes * Progress Notes - Juan Pablo Cee MD - 01/20/2023 9:15 AM EDT Mr. Erick Sierra is a very pleasant 72 y.o. patient who is returning to the clinic today for his follow-up. He was last seen in my clinic on 11/18/2022 and recommended a follow-up in 2 months. He has a T2 N1 M0 P [...] evaluated by Medical and Radiation Oncology at [facility]. He started his radiation treatment on11/11/2022 and chemotherapy on 11/14/2022. He completed his radiation on 12/30/2022. He has been doing very well since completion of his treatment but complained of decreased hearing in both ears and decrease of the sense of taste. He is able to swallow solid foods without any difficulties and he noted the lymph node in the right neck significantly shrunk. The patient reported otalgia, denies otorrhea, hearing loss, vertigo or tinnitus. He denied having sinonasal symptoms, postnasal drip, epistaxis, nasal congestion/obstruction or anosmia/hyposmia. He also denied dysphagia, odynophagia, dysphonia, dyspepsia, dyspnea or reflux disease. The patient's complete review of system from 01/20/23 was performed today. All systems were negative except for those mentioned in the HPI, prostate cancer, hypertension, allergic rhinitis, history of skin cancer. Radiographs: - CT scan of the neck: . 08/12/2022: asymmetry in the right oropharynx base of tongue with right-sided cervical lymphadenopathy - CT scan of the chest: . 10/21/2022: No evidence of thoracic malignancy - PET [...] disease. Hypermetabolism of the left postauricular region. I independently reviewed the images of the CT scan of the neck from 08/12/2022. I discussed my findings with the patient. 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 Liudmila Salnias) - 10/09/2022: P 16 positive squamous cell [...] illicit drugs. PHYSICAL EXAMINATION: Visit Vitals BP 115/65 (BP Location: Right arm, Patient Position: Sitting, BP Cuff Size: Adult) Pulse 75 Temp 36.8 ??C (98.2 ??F) (Oral) Ht 1.88 m (6' 2 ) Wt 74.3 kg (163 lb 14.4 oz) SpO2 100% BMI 21.04 kg/m?? General: He is a very healthy-appearing [...] are surgically absent Neck: soft and supple, mild fullness in right level 2, nontender to palpation. Eyes: Extraocular movements are intact bilaterally. PERRLA. [...] in the right base of tongue and the lymph node in the right neck has significantly shrunk. It is nontender to palpation measuring about 1.5 cm in right level 2. He completed his radiation treatment on 12/30/2022 and he has upcoming scans in February [address] Alejandro. I will see him back in my clinic at the end of March 2023 with a PET-CT scan, sooner if has any problems or concerns. We discussed the need to do a neck dissection if there is persistence of the lymphnode with necrotic center on the right-hand side. Regarding the patient's hearing loss, we will reassess at his next visit and he may need a hearing test and follow up in my ENT clinic with an audiogram. Juan Pablo Cee MD MS FACS Boiler House Inspector Head & Neck Oncology Rhinology & Skull Base Surgery documented in this encounter Plan of Treatment Upcoming Encounters Date Type Department Care Team (Late st Contact Info) Description 10/17/2024 8:00 AM EST Clinical Support Pav CC Head, Neck & Respiratory 800 [facility], 2nd [place] [address] 10/17/2024 9:00 AM EST Appointment [facility] PET Scan 800 [place] [address] 10/17/2024 10:00 AM EST Appointment [facility] PET Scan 800 [place] [address] 10/17/2024 11:00 AM EST Office Visit Pav CC Head, Neck & Respiratory 800 [facility], [address] [place] [address] Juan Pablo Cee MD [address] [facility] [address] [place] [address] 10/17/2024 1:00 PM EST Clinical Support Pav CC Head, Neck & Respiratory 800 [facility], [address] [place] [address] 10/17/2024 2:20 PM EST Appointment PAV G Radiology [address] [place] [address] 10/20/2024 3:30 PM EST Office Visit Pav CC Head, Neck & Respiratory [address] [address] Germaine Alejandro MD 800 [facility] [address] [place] [address] documented as of this encounter Results * PET/CT FDG Skull [...] scanner: Siemens Biograph 40 mCT. PET/CT acquisition: Cgswvh-jv-ulu-thighs, plus magnification (zoomed) neck. Standardized uptake value (SUV): Corrected for body weight only. CT: Low-dose, rvx-aupqyi-atnq, without intravenous contrast. TOTAL DLP (Dose Length [...] scanner: Siemens Biograph 40 mCT. PET/CT acquisition: Zngmdx-im-fht-thighs, plus magnification (zoomed)neck. Standardized uptake value (SUV): Corrected for body weight only. CT: Low-dose, kxy-neswvs-gvui, without intravenous contrast. TOTAL DLP (Dose Length [...] margins of the soft tissue thickening measures [id number] x 10 mm with a maximum SUV [...] signing this report, I, the attending physician, atthillarythat I have personally reviewed the images/data for the aboveexamination(s) and agree with the final edited report. Drafted by Jac Alcantara MD on 03/31/2023 2:50 PM Final report signed by Patricia Ribera MD on 03/31/2023 4:25 PM Juan Pablo Cee MD IMG NM PROCEDURES Final Result documented in this encounter Visit Diagnoses Diagnosis 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 documented in this encounter Additional Health Concerns Assessment Noted Time A fall risk assessment has been complete d for the patient 01/20/2023 9:02 AM EDT documented as of this encounter Care Teams Edge Cutting Machine Operator Relationship Specialty Start Date End Date Manjit Gorman MD [address] [place] [address] PCP - General 09/23/22 Olegario Juarez MD [address] [address] Consulting Physician Radiation Oncology 10/29/2207/05 documented as of this encounter
--- OUTSIDE RECORDS SUMMARY | 2024-07-27 06:53 | XMS_ITS | Encounter Summary ---
Author Organization [facility] Address [address] [place] [address] Care Team Providers Care Steel Welder Name Role Phone Manjit Gorman MD Primary Care Provider [phone] Olegario Juarez MD Unavailable [phone] Encounter Details Date Type Department Care Team (Late Contact Info) Description 12/26/2022 Orders Only PAV CC Radiation [address] [place] [address] Radiation Oncology, Physician, [address] [place], [place] [id number] Social History Tobacco Use Types Packs/Day Years [...] & Respiratory [address], [address] [place] [address] 10/17/2024 9:00 AM EST Appointment [facility] PET Scan 800 [place] [address] 10/17/2024 10:00 AM EST Appointment [facility] PET Scan 800 [place] [address] 10/17/2024 11:00 AM EST Office Visit Pav CC Head, Neck & Respiratory 800 [facility], 2nd [place] [address] Juan Pablo Cee MD [address] [facility] [address] [place] [address] 10/17/2024 1:00 PM EST Clinical Support Pav CC Head, Neck & Respiratory 800 [facility], [address]nd [place] [address] 10/17/2024 2:20 PM EST Appointment PAV G Radiology [address] [place] [address] 10/20/2024 3:30 PM EST Office Visit Pav CC Head, Neck & Respiratory 800 [facility], [address] [place] [address] Germaine Alejandro MD 800 [facility] [address] [place] [address] documented as of this encounter Procedures Procedure Name Priority Date/Time Associated Diagnosis Comments RAD ONC ARIA SESSION SUMMARY Routine 12/26/2022 12:58 PM EDT documented in this encounter Results * Rad Onc Aria Session Summary (12/26/2022 12:58 PM EDT) Course ID C1 ARIA RADIATION ONCOLOGY Course Intent Curative ARIA RADIATION ONCOLOGY Course Start Date 10/30/2022 3:11 PM ARIA RADIATION ONCOLOGY Course First Treatment Date 11/11/2022 11:30 AM ARIA RADIATION ONCOLOGY Course Last Treatment Date 12/26/2022 12:52 PM ARIA RADIATION ONCOLOGY Course Elapsed Days 45 ARIA RADIATION ONCOLOGY Reference Point ID RtOropharyn+Neck ARIA RADIATION ONCOLOGY Reference Point Dosage Given to Date 66 Gy ARIA RADIATION ONCOLOGY Reference Point Session Dosage Given 2 Gy ARIA RADIATION ONCOLOGY Plan ID RtOropharynx ARIA RADIATION ONCOLOGY Plan Name H&N ARIA RADIATION ONCOLOGY Plan Fractions Treated to Date 33 ARIA RADIATION ONCOLOGY Plan Total Fractions Prescribed 35 ARIA RADIATION ONCOLOGY Plan Prescribed Dose Per Fraction 2 Gy ARIA RADIATION ONCOLOGY Plan Total Prescribed Dose 7,000 CGy ARIA RADIATION ONCOLOGY Plan Primary Reference Point RtOropharyn+Neck ARIA RADIATION ONCOLOGY 12/26/2022 12:5 8 PM EDT Physician Radiation Oncology RADIATION ONCOLO GY ORDERABLES Final Result ARIA RADIATION ONCOLOGY documented in this encounter Visit Diagnoses Not on filedocumented in this encounter Additional Health Concerns Assessment Noted Time A fall risk assessment has been complete d for the patient 12/25/2022 11:22 AM EDT documented as of this encounter Care Teams Steel Welder Relationship Specialty Start Date End Date Manjit Gorman MD [address] [place] [address] PCP - General 09/23/22 Olegario Juarez MD [address] [address] Consulting Physician Radiation Oncology 10/29/2207/05 documented as of this encounter
--- OUTSIDE RECORDS SUMMARY | 2024-07-27 06:53 | XMS_ITS | Encounter Summary ---
Author Organization [facility] Address [address] [place] [address] Care Team Providers Care Encyclopedia Research Worker Name Role Phone Manjit Gorman MD Primary Care Provider [phone] Olegario Juarez MD Unavailable [phone] Encounter Details Date Type Department Care Team (Late st Contact Info) Description 12/26/2022 Nutrition P[facility] Multidisciplinary Oncology Clinic [address] [place], [place] [phone] [place] [address] Social History Tobacco Use Types Packs/Day Years [...] AM EDT documented as of this encounter Miscellaneous Notes * Clinician Note - Jolene St, RD - 12/26/2022 1:13 PM EDT PG-SGA Malnutrition Screening Assessment Patient Information Name: Erick Sierra [id number] : 1950 PG-SGA Total Score: 14 Malnutrition Risk: high Nutrition Assessment Anthropometrics: Wt Readings from Last 5 Encounters: 12/26/22 73.4 kg (161 lb 13.1 oz) 12/25/22 73.7 kg (162 lb 7.7 oz) 12/23/22 74.3 kg (163 lb 12.8 oz) 12/16/22 75 kg (165 lb 5.5 oz) 12/09/22 77.1 kg (169 lb 15.6 oz) Ht Readings from Last 1 Encounters: 12/26/22 1.88 m (6' 2 ) BMI Readings from Last 1 Encounters: 12/26/22 20.78 kg/m?? Subjective Pt nearing completion of chemoradiation for base of tongue cancer. Weight has decreased during therapy. Per pt, consuming soft foods such as yogurt, soup and drinking 2-3 Boost Plus/day which he continues to purchase via pharmacy. He did not require enteral access during treatment. Pt feels he is doing his best with eating at this time, states will reach out should he need further assistance. RD has met with this pt in the past and provided educational materials. Nutrition Intervention May increase Boost Plus as tolerated, enc pt to reach out for any refill needs. Enc pt to contact as needed, voiced understanding. documented in this encounter Plan of Treatment Upcoming Encounters Date Type Department Care Team (Late st Contact Info) Description 10/17/2024 8:00 AM EST Clinical Support Pav CC Head, Neck & Respiratory 800 [facility], [address] [place] [address] 10/17/2024 9:00 AM EST Appointment [facility] PET Scan 800 [place] [address] 10/17/2024 10:00 AM EST Appointment [facility] PET Scan 800 [place] [address] 10/17/2024 11:00 AM EST Office Visit Pav CC Head, Neck & Respiratory 800 [facility] [address]nd [place] [address] Juan Pablo Cee MD [address] [place] [address] 10/17/2024 1:00 PM EST Clinical Support Pav CC Head, Neck & Respiratory [address] [place] [address] 10/17/2024 2:20 PM EST Appointment PAV G Radiology [address] [place] [address] 10/20/2024 3:30 PM EST Office Visit Pav CC Head, Neck & Respiratory [address] [place] [address] Germaine Alejandro MD [address] [place] [address] documented as of this encounter Visit Diagnoses Not on filedocumented in this encounter Additional Health Concerns Assessment Noted Time A fall risk assessment has been complete d for the patient 12/25/2022 11:22 AM EDT documented as of this encounter Care Teams Encyclopedia Research Worker Relationship Specialty Start Date End Date Manjit Gorman MD [address] [place], [place] [phone] PCP - General 09/23/22 Olegario Juarez MD [address] [place] [address] Consulting Physician Radiation Oncology 10/29/2207/05 documented as of this encounter
--- OUTSIDE RECORDS SUMMARY | 2024-07-27 06:53 | XMS_ITS | Encounter Summary ---
Author Organization [facility] Address [address] [place] [address] Care Team Providers Care Clothing Room Supervisor Name Role Phone Manjit Gorman MD Primary Care Provider [phone] Olegario Juarez MD Unavailable [phone] Encounter Details Date Type Department Care Team (Latest Contact Info) Description 12/29/2022 Travel Social History Tobacco Use Types Packs/Day [...] Pav CC Head, Neck & Respiratory 800 [facility], [address]nd [place] [address] 10/17/2024 9:00 AM EST Appointment [facility] PET Scan 800 [place] [address] 10/17/2024 10:00 AM EST Appointment [facility] PET Scan 800 [place] [address] 10/17/2024 11:00 AM EST Office Visit Pav CC Head, Neck & Respiratory 800 [facility], [address]nd [place] [address] Juan Pablo Cee MD [address] [facility] [address] [place] [address] 10/17/2024 1:00 PM EST Clinical Support Pav CC Head, Neck & Respiratory 800 [facility], [address]nd [place] [address] 10/17/2024 2:20 PM EST Appointment PAV G Radiology [address] [place] [address] 10/20/2024 3:30 PM EST Office Visit Pav CC Head, Neck & Respiratory 800 [facility], [address] [place] [address] Germaine Alejandro MD [address] [place] [address] documented as of this encounter Visit Diagnoses Not on filedocumented in this encounter Additional Health Concerns Assessment Noted Time A fall risk assessment has been complete d for the patient 12/25/2022 11:22 AM EDT documented as of this encounter Care Teams Clothing Room Supervisor Relationship Specialty Start Date End Date Manjit Gorman MD [address] [place], [place] [phone] PCP - General 09/23/22 Olegario Juarez MD [address] [facility] [address] [place] [address] Consulting Physician Radiation Oncology 10/29/2207/05 documented as of this encounter
--- OUTSIDE RECORDS SUMMARY | 2024-07-27 06:54 | XMS_ITS | Encounter Summary ---
Author Organization [facility] Address [address] [place] [address] Care Team Providers Care Feller Operator Name Role Phone Manjit Gorman MD Primary Care Provider [phone] Olegario Juarez MD Unavailable [phone] Encounter Details Date Type Department Care Team (Late Contact Info) Description 12/17/2022 Orders Only PAV CC Radiation [address] [place] [address] Radiation Oncology, Physician, [address] [place], [place] [phone] Social History Tobacco Use Types Packs/Day Years [...] suspected to have Coronavirus/COVID-19? No / Unsure 12/14/2022 8:55 AM EDT documented as of this encounter Plan of Treatment Upcoming Encounters Date Type Department Care Team (Late st Contact Info) Description 10/17/2024 8:00 AM EST Clinical Support Pav CC Head, Neck & Respiratory [address] [place] [address] 10/17/2024 9:00 AM EST Appointment [facility] PET Scan 800 [place] [address] 10/17/2024 10:00 AM EST Appointment [facility] PET Scan 800 [place] [address] 10/17/2024 11:00 AM EST Office Visit Pav CC Head, Neck & Respiratory 800 [facility], [address]nd [place] [address] Juan Pablo Cee MD [address] [facility] [address] [place] [address] 10/17/2024 1:00 PM EST Clinical Support Pav CC Head, Neck & Respiratory 800 [facility], [address] [place] [address] 10/17/2024 2:20 PM EST Appointment PAV G Radiology [address] [place] [address] 10/20/2024 3:30 PM EST Office Visit Pav CC Head, Neck & Respiratory [address] [facility], [address] [place] [address] Germaine Alejandro MD 800 [facility] [address] [facility] [address] [place] [address] documented as of this encounter Procedures Procedure Name Priority Date/Time Associated Diagnosis Comments RAD ONC ARIA SESSION SUMMARY Routine 12/17/2022 1:19 PM EDT documented in this encounter Results * Rad Onc Aria Session Summary (12/17/2022 1:19 PM EDT) Course ID C1 ARIA RADIATION ONCOLOGY Course Intent Curative ARIA RADIATION ONCOLOGY Course Start Date 10/30/2022 3:11 PM ARIA RADIATION ONCOLOGY Course First Treatment Date 11/11/2022 11:30 AM ARIA RADIATION ONCOLOGY Course Last Treatment Date 12/17/2022 1:12 PM ARIA RADIATION ONCOLOGY Course Elapsed Days 36 ARIA RADIATION ONCOLOGY Reference Point ID RtOropharyn+Neck ARIA RADIATION ONCOLOGY Reference Point Dosage Given to Date 52 Gy ARIA RADIATION ONCOLOGY Reference Point Session Dosage Given 2 Gy ARIA RADIATION ONCOLOGY Plan ID RtOropharynx ARIA RADIATION ONCOLOGY Plan Name H&N ARIA RADIATION ONCOLOGY Plan Fractions Treated to Date 26 ARIA RADIATION ONCOLOGY Plan Total Fractions Prescribed 35 ARIA RADIATION ONCOLOGY Plan Prescribed Dose Per Fraction 2 Gy ARIA RADIATION ONCOLOGY Plan Total Prescribed Dose 7,000 CGy ARIA RADIATION ONCOLOGY Plan Primary Reference Point RtOropharyn+Neck ARIA RADIATION ONCOLOGY 12/17/2022 1:19 PM EDT Physician Radiation Oncology RADIATION ONCOLO GY ORDERABLES Final Result ARIA RADIATION ONCOLOGY documented in this encounter Visit Diagnoses Not on filedocumented in this encounter Additional Health Concerns Assessment Noted Time A fall risk assessment has been complete d for the patient 12/16/2022 12:52 PM EDT documented as of this encounter Care Teams Feller Operator Relationship Specialty Start Date End Date Manjit Gorman MD [address] [place] [address] PCP - General 09/23/22 Olegario Juarez MD [address] [address] Consulting Physician Radiation Oncology 10/29/2207/05 documented as of this encounter
--- OUTSIDE RECORDS SUMMARY | 2024-07-27 06:54 | XMS_ITS | Encounter Summary ---
Author Organization [facility] Address [address] [place] [address] Care Team Providers Care Software Reliability Engineer Name Role Phone Manjit Gorman MD Primary Care Provider [phone] Olegario Juarez MD Unavailable [phone] Encounter Details Date Type Department Care Team (Latest Contact Info) Description 12/21/2022 Travel Social History Tobacco Use Types Packs/Day [...] 800 [facility], 2nd [place] [address] 10/17/2024 9:00 AM EST Appointment [facility] PET Scan 800 [place] [address] 10/17/2024 10:00 AM EST Appointment [facility] PET Scan 800 [place] [address] 10/17/2024 11:00 AM EST Office Visit Pav [facility] Head, Neck & Respiratory 800 [facility], 2nd [place] [address] Juan Pablo Cee MD [address] [facility] [address] [place] [address] 10/17/2024 1:00 PM EST Clinical Support Pav CC Head, Neck & Respiratory 800 [facility], 2nd [place] [address] 10/17/2024 2:20 PM EST Appointment [facility] Radiology [address] [place] [address] 10/20/2024 3:30 PM EST Office Visit Pav CC Head, Neck & Respiratory 800 [facility], [address]nd [place] [address] Germaine Alejandro MD [address] [place] [address] documented as of this encounter Visit Diagnoses Not on filedocumented in this encounter Additional Health Concerns Assessment Noted Time A fall risk assessment has been complete d for the patient 12/16/2022 12:52 PM EDT documented as of this encounter Care Teams Software Reliability Engineer Relationship Specialty Start Date End Date Manjit Gorman MD [address] [place], [place] [id number] PCP - General 09/23/22 Olegario Juarez MD [address] [facility] [address] [place] [address] Consulting Physician Radiation Oncology 10/29/2207/05 documented as of this encounter
--- OUTSIDE RECORDS SUMMARY | 2024-07-27 06:54 | XMS_ITS | Encounter Summary ---
Author Organization [facility] Address [address] [place] [address] Care Team Providers Care Hospice Care Transitions Coordinator Name Role Phone Manjit Gorman MD Primary Care Provider [phone] Olegario Juarez MD Unavailable [phone] Encounter Details Date Type Department Care Team (Late Contact Info) Description 12/22/2022 Orders Only [facility] Radiation [id number] [place] [address] Radiation Oncology, Physician, [address] [place], [place] [id number] Social History Tobacco Use Types Packs/Day Years [...] & Respiratory [address], 2nd [place] [address] 10/17/2024 9:00 AM EST Appointment [facility] PET Scan 800 [place] [address] 10/17/2024 10:00 AM EST Appointment [facility] PET Scan 800 [place] [address] 10/17/2024 11:00 AM EST Office Visit Pav CC Head, Neck & Respiratory 800 [facility], 2nd [place] [address] Juan Pablo Cee MD [address] [facility] [address] [place] [address] 10/17/2024 1:00 PM EST Clinical Support Pav CC Head, Neck & Respiratory 800 [facility], 2nd [place] [address] 10/17/2024 2:20 PM EST Appointment P[facility] G Radiology [address] [place] [address] 10/20/2024 3:30 PM EST Office Visit Pav CC Head, Neck & Respiratory 800 [facility], 2nd [place] [address] Germaine Alejandro MD [address] [facility] [address] [place] [address] documented as of this encounter Procedures Procedure Name Priority Date/Time Associated Diagnosis Comments RAD ONC ARIA SESSION SUMMARY Routine 12/22/2022 1:13 PM EDT documented in this encounter Results * Rad Onc Aria Session Summary (12/22/2022 1:13 PM EDT) Course ID C1 ARIA RADIATION ONCOLOGY Course Intent Curative ARIA RADIATION ONCOLOGY Course Start Date 10/30/2022 3:11 PM ARIA RADIATION ONCOLOGY Course First Treatment Date 11/11/2022 11:30 AM ARIA RADIATION ONCOLOGY Course Last Treatment Date 12/22/2022 1:06 PM ARIA RADIATION ONCOLOGY Course Elapsed Days 41 ARIA RADIATION ONCOLOGY Reference Point ID RtOropharyn+Neck ARIA RADIATION ONCOLOGY Reference Point Dosage Given to Date 58 Gy ARIA RADIATION ONCOLOGY Reference Point Session Dosage Given 2 Gy ARIA RADIATION ONCOLOGY Plan ID RtOropharynx ARIA RADIATION ONCOLOGY Plan Name H&N ARIA RADIATION ONCOLOGY Plan Fractions Treated to Date 29 ARIA RADIATION ONCOLOGY Plan Total Fractions Prescribed 35 ARIA RADIATION ONCOLOGY Plan Prescribed Dose Per Fraction 2 Gy ARIA RADIATION ONCOLOGY Plan Total Prescribed Dose 7,000 CGy ARIA RADIATION ONCOLOGY Plan Primary Reference Point RtOropharyn+Neck ARIA RADIATION ONCOLOGY 12/22/2022 1:13 PM EDT Physician Radiation Oncology RADIATION ONCOLO GY ORDERABLES Final Result ARIA RADIATION ONCOLOGY documented in this encounter Visit Diagnoses Not on filedocumented in this encounter Additional Health Concerns Assessment Noted Time A fall risk assessment has been complete d for the patient 12/16/2022 12:52 PM EDT documented as of this encounter Care Teams Hospice Care Transitions Coordinator Relationship Specialty Start Date End Date Manjit Gorman MD [address] [place] [address] PCP - General 09/23/22 Olegario Juarez MD [address] [address] Consulting Physician Radiation Oncology 10/29/2207/05 documented as of this encounter
--- OUTSIDE RECORDS SUMMARY | 2024-07-27 06:54 | XMS_ITS | Encounter Summary ---
Author Organization [facility] Address [address] [place] [address] Care Team Providers Care Head Sugar Reprocess Operator Name Role Phone Manjit Gorman MD Primary Care Provider [phone] Olegario Juarez MD Unavailable [phone] Encounter Details Date Type Department Care Team (Latest Contact Info) Description 12/14/2022 Travel Social History Tobacco Use Types Packs/Day [...] Pav CC Head, Neck & Respiratory 800 [facility], 2nd [place] [address] 10/17/2024 9:00 AM EST Appointment [facility] PET Scan 800 [place] [address] 10/17/2024 10:00 AM EST Appointment [facility] PET Scan 800 [place] [address] 10/17/2024 11:00 AM EST Office Visit Pav CC Head, Neck & Respiratory 800 [facility], 2nd [place] [address] Juan Pablo Cee MD [address] [facility] [address] [place] [address] 10/17/2024 1:00 PM EST Clinical Support Pav CC Head, Neck & Respiratory 800 [facility], 2nd [place] [address] 10/17/2024 2:20 PM EST Appointment [facility] G Radiology [address] [place] [address] 10/20/2024 3:30 PM EST Office Visit Pav CC Head, Neck & Respiratory 800 [facility], [address]nd [place] [address] Germaine Alejandro MD [address] [place] [address] documented as of this encounter Visit Diagnoses Not on filedocumented in this encounter Additional Health Concerns Assessment Noted Time A fall risk assessment has been complete d for the patient 12/09/2022 12:57 PM EDT documented as of this encounter Care Teams Head Sugar Reprocess Operator Relationship Specialty Start Date End Date Manjit Gorman MD [address] [place], [place] [id number] PCP - General 09/23/22 Olegario Juarez MD [address] [facility] [address] [place] [address] Consulting Physician Radiation Oncology 10/29/2207/05 documented as of this encounter
--- OUTSIDE RECORDS SUMMARY | 2024-07-27 06:54 | XMS_ITS | Encounter Summary ---
Author Organization [facility] Address [address] [place] [address] Care Team Providers Care Subcontracts Manager Name Role Phone Manjit Gorman MD Primary Care Provider [phone] Olegario Juarez MD Unavailable [phone] Encounter Details Date Type Department Care Team (Late Contact Info) Description 12/12/2022 Orders Only [facility] Radiation [address] YP[address] [place] [address] Radiation Oncology, Physician, [address] [place], [place] [phone] Social History Tobacco Use Types Packs/Day Years [...] suspected to have Coronavirus/COVID-19? No / Unsure 12/06/2022 11:55 AM EDT documented as of this encounter Plan of Treatment Upcoming Encounters Date Type Department Care Team (Late st Contact Info) Description 10/17/2024 8:00 AM EST Clinical Support Pav [facility] Head, Neck & Respiratory [address], 2nd [place] [address] 10/17/2024 9:00 AM EST Appointment [facility] PET Scan 800 [place] [address] 10/17/2024 10:00 AM EST Appointment [facility] PET Scan 800 [place] [address] 10/17/2024 11:00 AM EST Office Visit Pav CC Head, Neck & Respiratory 800 [facility], 2nd [place] [address] Juan Pablo Cee MD [address] [facility] [address] [place] [address] 10/17/2024 1:00 PM EST Clinical Support Pav CC Head, Neck & Respiratory 800 [facility], 2nd [place] [address] 10/17/2024 2:20 PM EST Appointment P[facility] G Radiology [address] [place] [address] 10/20/2024 3:30 PM EST Office Visit Pav CC Head, Neck & Respiratory 800 [facility], [address]nd [place] [address] Germaine Alejandro MD 800 [facility] [place] [facility] [facility] [address] [place] [address] documented as of this encounter Procedures Procedure Name Priority Date/Time Associated Diagnosis Comments RAD ONC ARIA SESSION SUMMARY Routine 12/12/2022 12:50 PM EDT documented in this encounter Results * Rad Onc Aria Session Summary (12/12/2022 12:50 PM EDT) Course ID C1 ARIA RADIATION ONCOLOGY Course Intent Curative ARIA RADIATION ONCOLOGY Course Start Date 10/30/2022 3:11 PM ARIA RADIATION ONCOLOGY Course First Treatment Date 11/11/2022 11:30 AM ARIA RADIATION ONCOLOGY Course Last Treatment Date 12/12/2022 12:44 PM ARIA RADIATION ONCOLOGY Course Elapsed Days 31 ARIA RADIATION ONCOLOGY Reference Point ID RtOropharyn+Neck ARIA RADIATION ONCOLOGY Reference Point Dosage Given to Date 46 Gy ARIA RADIATION ONCOLOGY Reference Point Session Dosage Given 2 Gy ARIA RADIATION ONCOLOGY Plan ID RtOropharynx ARIA RADIATION ONCOLOGY Plan Name H&N ARIA RADIATION ONCOLOGY Plan Fractions Treated to Date 23 ARIA RADIATION ONCOLOGY Plan Total Fractions Prescribed 35 ARIA RADIATION ONCOLOGY Plan Prescribed Dose Per Fraction 2 Gy ARIA RADIATION ONCOLOGY Plan Total Prescribed Dose 7,000 CGy ARIA RADIATION ONCOLOGY Plan Primary Reference Point RtOropharyn+Neck ARIA RADIATION ONCOLOGY 12/12/2022 12:5 0 PM EDT Physician Radiation Oncology RADIATION ONCOLO GY ORDERABLES Final Result ARIA RADIATION ONCOLOGY documented in this encounter Visit Diagnoses Not on filedocumented in this encounter Additional Health Concerns Assessment Noted Time A fall risk assessment has been complete d for the patient 12/09/2022 12:57 PM EDT documented as of this encounter Care Teams Subcontracts Manager Relationship Specialty Start Date End Date Manjit Gorman MD [address] [place] [address] PCP - General 09/23/22 Olegario Juarez MD [address] [address] Consulting Physician Radiation Oncology 10/29/2207/05 documented as of this encounter
--- OUTSIDE RECORDS SUMMARY | 2024-07-27 06:54 | XMS_ITS | Encounter Summary ---
Author Organization [facility] Address [address] [place] [address] Care Team Providers Care Operations Supervisor 2Nd Shift Name Role Phone Manjit Gorman MD Primary Care Provider [phone] Olegario Juarez MD Unavailable [phone] Encounter Details Date Type Department Care Team (Latest Contact Info) Description 12/17/2022 Travel Social History Tobacco Use Types Packs/Day [...] Pav CC Head, Neck & Respiratory 800 [facility], 2nd [place] [address] 10/17/2024 9:00 AM EST Appointment [facility] PET Scan 800 [place] [address] 10/17/2024 10:00 AM EST Appointment [facility] PET Scan 800 [place] [address] 10/17/2024 11:00 AM EST Office Visit Pav CC Head, Neck & Respiratory 800 [facility], 2nd [place] [address] Juan Pablo Cee MD [address] [facility] [address] [place] [address] 10/17/2024 1:00 PM EST Clinical Support Pav CC Head, Neck & Respiratory 800 [facility], 2nd [place] [address] 10/17/2024 2:20 PM EST Appointment PAV G Radiology [address] [place] [address] 10/20/2024 3:30 PM EST Office Visit Pav CC Head, Neck & Respiratory 800 [facility], 2nd [place] [address] Germaine Alejandro MD [address] [place] [address] documented as of this encounter Visit Diagnoses Not on filedocumented in this encounter Additional Health Concerns Assessment Noted Time A fall risk assessment has been complete d for the patient 12/16/2022 12:52 PM EDT documented as of this encounter Care Teams Operations Supervisor 2Nd Shift Relationship Specialty Start Date End Date Manjit Gorman MD [address] [place], [place] [phone] PCP - General 09/23/22 Olegario Juarez MD [address] [facility] [address] [place] [address] Consulting Physician Radiation Oncology 10/29/2207/05 documented as of this encounter
--- OUTSIDE RECORDS SUMMARY | 2024-07-27 06:54 | XMS_ITS | Encounter Summary ---
Author Organization [facility] Address [address] [place] [address] Care Team Providers Care Forming Mill Operator Name Role Phone Manjit Gorman MD Primary Care Provider [phone] Olegario Juarez MD Unavailable [phone] Encounter Details Date Type Department Care Team (Late Contact Info) Description 12/11/2022 Orders Only [facility] Radiation [address] [place] [address] Radiation Oncology, Physician, [address] [place], [place] [id number] Social History Tobacco Use Types Packs/Day Years [...] & Respiratory [address], 2nd [place] [address] 10/17/2024 9:00 AM EST Appointment [facility] PET Scan 800 [place] [address] 10/17/2024 10:00 AM EST Appointment [facility] PET Scan 800 [place] [address] 10/17/2024 11:00 AM EST Office Visit Pav CC Head, Neck & Respiratory 800 [facility], 2nd [place] [address] Juan Pablo Cee MD [address] [facility] [address] [place] [address] 10/17/2024 1:00 PM EST Clinical Support Pav CC Head, Neck & Respiratory [address] [facility], 2nd [place] [address] 10/17/2024 2:20 PM EST Appointment PAV G Radiology [address] [place] [address] 10/20/2024 3:30 PM EST Office Visit Pav CC Head, Neck & Respiratory [address] [facility], [address] [place] [address] Germaine Alejandro MD 800 [facility] [address] [place] [address] documented as of this encounter Procedures Procedure Name Priority Date/Time Associated Diagnosis Comments RAD ONC ARIA SESSION SUMMARY Routine 12/11/2022 1:14 PM EDT documented in this encounter Results * Rad Onc Aria Session Summary (12/11/2022 1:14 PM EDT) Course ID C1 ARIA RADIATION ONCOLOGY Course Intent Curative ARIA RADIATION ONCOLOGY Course Start Date 10/30/2022 3:11 PM ARIA RADIATION ONCOLOGY Course First Treatment Date 11/11/2022 11:30 AM ARIA RADIATION ONCOLOGY Course Last Treatment Date 12/11/2022 1:08 PM ARIA RADIATION ONCOLOGY Course Elapsed Days 30 ARIA RADIATION ONCOLOGY Reference Point ID RtOropharyn+Neck ARIA RADIATION ONCOLOGY Reference Point Dosage Given to Date 44 Gy ARIA RADIATION ONCOLOGY Reference Point Session Dosage Given 2 Gy ARIA RADIATION ONCOLOGY Plan ID RtOropharynx ARIA RADIATION ONCOLOGY Plan Name H&N ARIA RADIATION ONCOLOGY Plan Fractions Treated to Date 22 ARIA RADIATION ONCOLOGY Plan Total Fractions Prescribed 35 ARIA RADIATION ONCOLOGY Plan Prescribed Dose Per Fraction 2 Gy ARIA RADIATION ONCOLOGY Plan Total Prescribed Dose 7,000 CGy ARIA RADIATION ONCOLOGY Plan Primary Reference Point RtOropharyn+Neck ARIA RADIATION ONCOLOGY 12/11/2022 1:14 PM EDT Physician Radiation Oncology RADIATION ONCOLO GY ORDERABLES Final Result ARIA RADIATION ONCOLOGY documented in this encounter Visit Diagnoses Not on filedocumented in this encounter Additional Health Concerns Assessment Noted Time A fall risk assessment has been complete d for the patient 12/09/2022 12:57 PM EDT documented as of this encounter Care Teams Forming Mill Operator Relationship Specialty Start Date End Date Manjit Gorman MD [address] [place] [address] PCP - General 09/23/22 Olegario Juarez MD [address] [address] Consulting Physician Radiation Oncology 10/29/2207/05 documented as of this encounter
--- OUTSIDE RECORDS SUMMARY | 2024-07-27 06:54 | XMS_ITS | Encounter Summary ---
Author Organization [facility] Address [address] [place] [address] Care Team Providers Care Manager Business Planning Name Role Phone Manjit Gorman MD Primary Care Provider [phone] Olegario Juarez MD Unavailable [phone] Encounter Details Date Type Department Care Team (Latest Contact Info) Description 12/22/2022 Travel Social History Tobacco Use Types Packs/Day [...] Pav CC Head, Neck & Respiratory 800 [facility], 2nd [place] [address] 10/17/2024 9:00 AM EST Appointment [facility] PET Scan 800 [place] [address] 10/17/2024 10:00 AM EST Appointment [facility] PET Scan 800 [place] [address] 10/17/2024 11:00 AM EST Office Visit Pav CC Head, Neck & Respiratory 800 [facility], 2nd [place] [address] Juan Pablo Cee MD [address] [facility] [address] [place] [address] 10/17/2024 1:00 PM EST Clinical Support Pav CC Head, Neck & Respiratory 800 [facility], 2nd [place] [address] 10/17/2024 2:20 PM EST Appointment PAV G Radiology [address] [place] [address] 10/20/2024 3:30 PM EST Office Visit Pav CC Head, Neck & Respiratory 800 [facility], [address]nd [place] [address] Germaine Alejandro MD [address] [place] [address] documented as of this encounter Visit Diagnoses Not on filedocumented in this encounter Additional Health Concerns Assessment Noted Time A fall risk assessment has been complete d for the patient 12/16/2022 12:52 PM EDT documented as of this encounter Care Teams Manager Business Planning Relationship Specialty Start Date End Date Manjit Gorman MD [address] [place], [place] [phone] PCP - General 09/23/22 Olegario Juarez MD [address] [facility] [address] [place] [address] Consulting Physician Radiation Oncology 10/29/2207/05 documented as of this encounter
--- OUTSIDE RECORDS SUMMARY | 2024-07-27 06:54 | XMS_ITS | Encounter Summary ---
Author Organization [facility] Address [address] [place] [address] Care Team Providers Care Chemical Research Worker Name Role Phone Manjit Gorman MD Primary Care Provider [phone] Olegario Juarez MD Unavailable [phone] Encounter Details Date Type Department Care Team (Latest Contact Info) Description 12/16/2022 Travel Social History Tobacco Use Types Packs/Day [...] Pav CC Head, Neck & Respiratory 800 [facility], 2nd [place] [address] 10/17/2024 9:00 AM EST Appointment [facility] PET Scan 800 [place] [address] 10/17/2024 10:00 AM EST Appointment [facility] PET Scan 800 [place] [address] 10/17/2024 11:00 AM EST Office Visit Pav CC Head, Neck & Respiratory 800 [facility], 2nd [place] [address] Juan Pablo Cee MD [address] [facility] [address] [place] [address] 10/17/2024 1:00 PM EST Clinical Support Pav CC Head, Neck & Respiratory 800 [facility], 2nd [place] [address] 10/17/2024 2:20 PM EST Appointment PAV G Radiology [address] [place] [address] 10/20/2024 3:30 PM EST Office Visit Pav CC Head, Neck & Respiratory 800 [facility], [address]nd [place] [address] Germaine Alejandro MD [address] [place] [address] documented as of this encounter Visit Diagnoses Not on filedocumented in this encounter Additional Health Concerns Assessment Noted Time A fall risk assessment has been complete d for the patient 12/16/2022 12:52 PM EDT documented as of this encounter Care Teams Chemical Research Worker Relationship Specialty Start Date End Date Manjit Gorman MD [address] [place], [place] [phone] PCP - General 09/23/22 Olegario Juarez MD [address] [facility] [address] [place] [address] Consulting Physician Radiation Oncology 10/29/2207/05 documented as of this encounter
--- OUTSIDE RECORDS SUMMARY | 2024-07-27 06:54 | XMS_ITS | Encounter Summary ---
Author Organization [facility] Address [address] [place] [address] Care Team Providers Care Wooden Barrel Mechanic Name Role Phone Manjit Gorman MD Primary Care Provider [phone] Olegario Juarez MD Unavailable [phone] Encounter Details Date Type Department Care Team (Latest Contact Info) Description 12/18/2022 Travel Social History Tobacco Use Types Packs/Day [...] 800 [facility], 2nd [place] [address] 10/17/2024 9:00 AM EST Appointment [facility] PET Scan 800 [place] [address] 10/17/2024 10:00 AM EST Appointment [facility] PET Scan 800 [place] [address] 10/17/2024 11:00 AM EST Office Visit Pav CC Head, Neck & Respiratory 800 [facility], 2nd [place] [address] Juan Pablo Cee MD [address] [facility] [address] [place] [address] 10/17/2024 1:00 PM EST Clinical Support Pav CC Head, Neck & Respiratory 800 [facility], 2nd [place] [address] 10/17/2024 2:20 PM EST Appointment PAV G Radiology [address] [place] [address] 10/20/2024 3:30 PM EST Office Visit Pav CC Head, Neck & Respiratory 800 [facility], [address]nd [place] [address] Germaine Alejandro MD [address] [place] [address] documented as of this encounter Visit Diagnoses Not on filedocumented in this encounter Additional Health Concerns Assessment Noted Time A fall risk assessment has been complete d for the patient 12/16/2022 12:52 PM EDT documented as of this encounter Care Teams Wooden Barrel Mechanic Relationship Specialty Start Date End Date Manjit Gorman MD [address] [place], [place] [address] PCP - General 09/23/22 Olegario Juarez MD [address] [facility] [address] [place] [address] Consulting Physician Radiation Oncology 10/29/2207/05 documented as of this encounter
--- OUTSIDE RECORDS SUMMARY | 2024-07-27 06:54 | XMS_ITS | Encounter Summary ---
Author Organization [facility] Address [address] [id number] Care Team Providers Care Machine Repairer Maintenance Name Role Phone Manjit Gorman MD Primary Care Provider [phone] Olegario Juarez MD Unavailable [phone] Encounter Details Date Type Department Care Team (Latest Contact Info) Description 12/15/2022 12:48 PM EDT - 12/15/2022 11:59 PM EDT Hospital Encounter [facility] Radiation [id number] [place] [address] Discharge Disposition: Still a Patient Social History [...] by mouth 3 (three) times a day. 00941 mL 2 11/17/2022 3 dexamethasone (Decadron) 4 [...] 800 [facility], 2nd [place] [address] 10/17/2024 9:00 AM EST Appointment [facility] PET Scan 800 [place] [address] 10/17/2024 10:00 AM EST Appointment [facility] PET Scan 800 [place] [address] 10/17/2024 11:00 AM EST Office Visit Pav CC Head, Neck & Respiratory 800 [facility], 2nd [place] [address] Juan Pablo Cee MD [address] [facility] [address] [place] [address] 10/17/2024 1:00 PM EST Clinical Support Pav CC Head, Neck & Respiratory [address] [facility], 2nd [place] [address] 10/17/2024 2:20 PM EST Appointment PAV G Radiology [address] [place] [address] 10/20/2024 3:30 PM EST Office Visit Pav CC Head, Neck & Respiratory [address] [facility], 2nd [place] [address] Germaine Alejandro MD [address] [facility] [address] [place] [address] documented as of this encounter Visit Diagnoses Not on filedocumented in this encounter Additional Health Concerns Assessment Noted Time A fall risk assessment has been complete d for the patient 12/09/2022 12:57 PM EDT documented as of this encounter Care Teams Machine Repairer Maintenance Relationship Specialty Start Date End Date Manjit Gorman MD [address] [place], [place] [id number] PCP - General 09/23/22 Olegario Juarez MD [address] [facility] [address] [place] [address] Consulting Physician Radiation Oncology 10/29/2207/05 documented as of this encounter
--- OUTSIDE RECORDS SUMMARY | 2024-07-27 06:54 | XMS_ITS | Encounter Summary ---
Author Organization [facility] Address [address] [id number] Care Team Providers Care Medical Record Transcriber Name Role Phone Manjit Gorman MD Primary Care Provider [phone] Olegario Juarez MD Unavailable Encounter Details Date Type Department Care Team (Latest Contact Info) Description 12/19/2022 12:55 PM EDT - 12/19/2022 11:59 PM EDT Hospital Encounter [facility] Radiation [id number] [place] [address] Discharge Disposition: Still a Patient Social History [...] by mouth 3 (three) times a day. 69564 mL 2 11/17/2022 3 dexamethasone (Decadron) 4 [...] CC Head, Neck & Respiratory 800 [facility], 2nd [place] [address] 10/17/2024 9:00 AM EST Appointment [facility] PET Scan 800 [place] [address] 10/17/2024 10:00 AM EST Appointment [facility] PET Scan 800 [place] [address] 10/17/2024 11:00 AM EST Office Visit Pav CC Head, Neck & Respiratory 800 [facility], 2nd [place] [address] Juan Pablo Cee MD [address] [facility] [address] [place] [address] 10/17/2024 1:00 PM EST Clinical Support Pav CC Head, Neck & Respiratory [address] [facility], 2nd [place] [address] 10/17/2024 2:20 PM EST Appointment PAV G Radiology [address] [place] [address] 10/20/2024 3:30 PM EST Office Visit Pav CC Head, Neck & Respiratory 800 [facility], 2nd [place] [address] Germaine Alejandro MD 800 [facility] [address] [place] [address] documented as of this encounter Visit Diagnoses Not on filedocumented in this encounter Additional Health Concerns Assessment Noted Time A fall risk assessment has been complete d for the patient 12/16/2022 12:52 PM EDT documented as of this encounter Care Teams Medical Record Transcriber Relationship Specialty Start Date End Date Manjit Gorman MD [address] [place], [place] [id number] PCP - General 09/23/22 Olegario Juarez MD 800 [facility] [address] [place] [address] Consulting Physician Radiation Oncology 10/29/2207/05 documented as of this encounter
--- OUTSIDE RECORDS SUMMARY | 2024-07-27 06:54 | XMS_ITS | Encounter Summary ---
Author Organization [facility] Address [address] [place] [address] Care Team Providers Care Set Up Mechanic Crown Assembly Machine Name Role Phone Manjit Gorman MD Primary Care Provider [phone] Olegario Juarez MD Unavailable [phone] Encounter Details Date Type Department Care Team (Late Contact Info) Description 12/18/2022 Orders Only [facility] Radiation [id number] [place] [address] Radiation Oncology, Physician, [address] [place], [place] [id number] Social History Tobacco Use Types Packs/Day Years [...] & Respiratory [address], [address]nd [place] [address] 10/17/2024 9:00 AM EST Appointment [facility] PET Scan 800 [place] [address] 10/17/2024 10:00 AM EST Appointment [facility] PET Scan 800 [place] [address] 10/17/2024 11:00 AM EST Office Visit Pav CC Head, Neck & Respiratory 800 [facility], 2nd [place] [address] Juan Pablo Cee MD [address] [facility] [address] [place] [address] 10/17/2024 1:00 PM EST Clinical Support Pav CC Head, Neck & Respiratory 800 [facility], [address] [place] [address] 10/17/2024 2:20 PM EST Appointment PAV G Radiology [address] [place] [address] 10/20/2024 3:30 PM EST Office Visit Pav CC Head, Neck & Respiratory 800 [facility], [address] [place] [address] Germaine Alejandro MD 800 [facility] [address] [place] [address] documented as of this encounter Procedures Procedure Name Priority Date/Time Associated Diagnosis Comments RAD ONC ARIA SESSION SUMMARY Routine 12/18/2022 12:54 PM EDT documented in this encounter Results * Rad Onc Aria Session Summary (12/18/2022 12:54 PM EDT) Course ID C1 ARIA RADIATION ONCOLOGY Course Intent Curative ARIA RADIATION ONCOLOGY Course Start Date 10/30/2022 3:11 PM ARIA RADIATION ONCOLOGY Course First Treatment Date 11/11/2022 11:30 AM ARIA RADIATION ONCOLOGY Course Last Treatment Date 12/18/2022 12:47 PM ARIA RADIATION ONCOLOGY Course Elapsed Days 37 ARIA RADIATION ONCOLOGY Reference Point ID RtOropharyn+Neck ARIA RADIATION ONCOLOGY Reference Point Dosage Given to Date 54 Gy ARIA RADIATION ONCOLOGY Reference Point Session Dosage Given 2 Gy ARIA RADIATION ONCOLOGY Plan ID RtOropharynx ARIA RADIATION ONCOLOGY Plan Name H&N ARIA RADIATION ONCOLOGY Plan Fractions Treated to Date 27 ARIA RADIATION ONCOLOGY Plan Total Fractions Prescribed 35 ARIA RADIATION ONCOLOGY Plan Prescribed Dose Per Fraction 2 Gy ARIA RADIATION ONCOLOGY Plan Total Prescribed Dose 7,000 CGy ARIA RADIATION ONCOLOGY Plan Primary Reference Point RtOropharyn+Neck ARIA RADIATION ONCOLOGY 12/18/2022 12:5 4 PM EDT Physician Radiation Oncology RADIATION ONCOLO GY ORDERABLES Final Result ARIA RADIATION ONCOLOGY documented in this encounter Visit Diagnoses Not on filedocumented in this encounter Additional Health Concerns Assessment Noted Time A fall risk assessment has been complete d for the patient 12/16/2022 12:52 PM EDT documented as of this encounter Care Teams Set Up Mechanic Crown Assembly Machine Relationship Specialty Start Date End Date Manjit Gorman MD [address] [place] [address] PCP - General 09/23/22 Olegario Juarez MD [address] [address] Consulting Physician Radiation Oncology 10/29/2207/05 documented as of this encounter
--- OUTSIDE RECORDS SUMMARY | 2024-07-27 06:54 | XMS_ITS | Encounter Summary ---
Author Organization [facility] Address [address] [id number] Care Team Providers Care Travel Rn Name Role Phone Manjit Gorman MD Primary Care Provider [phone] Olegario Juarez MD Unavailable [phone] Encounter Details Date Type Department Care Team (Latest Contact Info) Description 12/15/2022 4:35 AM EDT - 12/15/2022 12:47 PM EDT Hospital Encounter [facility] CC Radiation [id number] [place] [address] Discharge Disposition: Still a Patient Social History [...] by mouth 3 (three) times a day. 82804 mL 2 11/17/2022 3 dexamethasone (Decadron) 4 [...] Pav CC Head, Neck & Respiratory 800 [facility], 2nd [place] [address] 10/17/2024 9:00 AM EST Appointment [facility] PET Scan 800 [place] [address] 10/17/2024 10:00 AM EST Appointment [facility] PET Scan 800 [place] [address] 10/17/2024 11:00 AM EST Office Visit Pav CC Head, Neck & Respiratory 800 [facility], 2nd [place] [address] Juan Pablo Cee MD [address] [facility] [address] [place] [address] 10/17/2024 1:00 PM EST Clinical Support Pav CC Head, Neck & Respiratory 800 [facility], 2nd [place] [address] 10/17/2024 2:20 PM EST Appointment PAV G Radiology [address] [place] [address] 10/20/2024 3:30 PM EST Office Visit Pav CC Head, Neck & Respiratory 800 [facility], 2nd [place] [address] Germaine Alejandro MD 800 [facility] [address] [place] [address] documented as of this encounter Visit Diagnoses Not on filedocumented in this encounter Additional Health Concerns Assessment Noted Time A fall risk assessment has been complete d for the patient 12/09/2022 12:57 PM EDT documented as of this encounter Care Teams Travel Rn Relationship Specialty Start Date End Date Manjit Gorman MD [address] [place], [place] [phone] PCP - General 09/23/22 Olegario Juarez MD 800 [facility] [address] [place] [address] Consulting Physician Radiation Oncology 10/29/2207/05 documented as of this encounter
--- OUTSIDE RECORDS SUMMARY | 2024-07-27 06:54 | XMS_ITS | Encounter Summary ---
Author Organization [facility] Address [address] [id number] Care Team Providers Care Serger Name Role Phone Manjit Gorman MD Primary Care Provider [phone] Olegario Juarez MD Unavailable [phone] Encounter Details Date Type Department Care Team (Latest Contact Info) Description 12/22/2022 12:34 PM EDT - 12/22/2022 11:59 PM EDT Hospital Encounter [facility] Radiation [id number] [place] [address] Discharge Disposition: Still a Patient Social History [...] by mouth 3 (three) times a day. 44193 mL 2 11/17/2022 3 dexamethasone (Decadron) 4 [...] 800 [facility], 2nd [place] [address] 10/17/2024 9:00 AM EST Appointment [facility] PET Scan 800 [place] [address] 10/17/2024 10:00 AM EST Appointment [facility] PET Scan 800 [place] [address] 10/17/2024 11:00 AM EST Office Visit Pav CC Head, Neck & Respiratory 800 [facility], 2nd [place] [address] Juan Pablo Cee MD [address] [facility] [address] [place] [address] 10/17/2024 1:00 PM EST Clinical Support Pav CC Head, Neck & Respiratory 800 [facility], 2nd [place] [address] 10/17/2024 2:20 PM EST Appointment PAV G Radiology [address] [place] [address] 10/20/2024 3:30 PM EST Office Visit Pav CC Head, Neck & Respiratory 800 [facility], 2nd [place] [address] Germaine Alejandro MD 800 [facility] [address] [place] [address] documented as of this encounter Visit Diagnoses Not on filedocumented in this encounter Additional Health Concerns Assessment Noted Time A fall risk assessment has been complete d for the patient 12/16/2022 12:52 PM EDT documented as of this encounter Care Teams Serger Relationship Specialty Start Date End Date Majnit Gorman MD [address] [place], [place] [phone] PCP - General 09/23/22 Olegario Juarez MD 800 [facility] [address] [place] [address] Consulting Physician Radiation Oncology 10/29/2207/05 documented as of this encounter
--- OUTSIDE RECORDS SUMMARY | 2024-07-27 06:54 | XMS_ITS | Encounter Summary ---
Author Organization [facility] Address [address] [id number] Care Team Providers Care Rural Mail Carrier Name Role Phone Manjit Gorman MD Primary Care Provider [phone] Olegario Juarez MD Unavailable [phone] Reason for Visit * Reason Comments OTV Encounter Details Date Type Department Care Team (Latest Contact Info) Description 12/23/2022 12:49 PM EDT - 12/23/2022 11:59 PM EDT Hospital Encounter P[facility] CC Radiation [address] [facility] [address]T [place] [address] Bossman Moscoso MD 800 [facility] [address] [place] [address] Primary cancer of oropharynx (CMS/HCC) (Primary Dx); Cancer of base of tongue (CMS/HCC); Encounter for antineoplastic radiation therapy Discharge Disposition: [...] Sign Reading Time Taken Comments Blood Pressure 122/69 12/23/2022 1:16 PM EDT Pulse 106 12/23/2022 1:16 PM EDT Temperature 37.1 ??C (98.8 ??F) 12/23/2022 1:16 PM ED T Respiratory Rate 18 12/23/2022 1:16 PM EDT Oxygen Saturation 98% 12/23/2022 1:16 PM EDT Inhaled Oxygen Concentration - - Weight 74.3 kg (163 lb 12.8 oz) 12/23/2022 1:16 PM EDT Height - - Body Mass Index 21.03 12/05/2022 9:27 AM EDT documented in this encounter Medications [...] by mouth 3 (three) times a day. 36876 mL 2 11/17/2022 3 dexamethasone (Decadron) 4 [...] Progress Notes - Jose Meade MD - 12/23/2022 1:00 PM EDT Patient Name: Erick Sierra Date of : 1950 72 y.o. 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 Vital Signs for this encounter: BSA: 1.97 meters squared Visit Vitals BP 122/69 Pulse 106 Temp 37.1 ??C (98.8 ??F) (Oral) Resp 18 Wt 74.3 kg (163 lb 12.8 oz) SpO2 98% BMI 21.03 kg/m?? Smoking Status Never BSA 1.97 m?? Physician Notes: [x] Reviewed chart and dosimetry - Current Dose - *see signed printed weekly treatment record [x] Reviewed treatment setup - Anticipated Dose - *see signed printed weekly treatment record [x] Reviewed port films or images - Examination of patient for evaluation and progress of treatment Symptomatic; fully ambulatory Subjective Mr. Sierra presents today for his status check after completing 30/35 fractions. Patient reports dullness in his right ear. He continues to have secretions which have been increasing in volume but is using mucinex. He continues to use mouthwash #1 regularly, and we have encouraged his continued use to manage these secretions. Assessment/Plan - We will continue RT as planned - Continue TOMASA Forte#1 Radiation Treatments Active Plans H&N [RtOropharynx] Most recent treatment: Dose planned: 200 cGy (fraction 30 on 12/23/2022) Total: Dose planned: 7,000 cGy (35 fractions) Elapsed Days: 42 Reference Points RtOropharyn+Neck Most recent treatment: Dose given: 200 cGy (on 12/23/2022) Total: Dose given: 6,000 cGy Elapsed Days: 42 Historical No historical radiation treatments to show. Resident signature: Physician signature: MD NURA Lam PAV CC RADIATION [address] [facility] [address] Cosigned by Bossman Moscoso MD at 12/23/2022 4:18 PM EDT Associated attestation - Bossman Moscoso MD - 12/23/2022 4:18 PM EDT I saw and evaluated the patient with the resident/fellow. I discussed the case with the resident/fellow and agree with the findings and plan as documented. documented in this encounter Plan of Treatment Upcoming Encounters Date Type Department Care Team (Late st Contact Info) Description 10/17/2024 8:00 AM EST Clinical Support Pav CC Head, Neck & Respiratory [address] [facility], [address] [place] [address] 10/17/2024 9:00 AM EST Appointment [facility] PET Scan 800 [place] [address] 10/17/2024 10:00 AM EST Appointment [facility] PET Scan 800 [place] [address] 10/17/2024 11:00 AM EST Office Visit Pav CC Head, Neck & Respiratory [address] [facility], [address] [place] [address] Juan Pablo Cee MD [address] [place] [address] 10/17/2024 1:00 PM EST Clinical Support Pav CC Head, Neck & Respiratory [address] [facility], 2nd [place] [address] 10/17/2024 2:20 PM EST Appointment PAV G Radiology [address] [place] [address] 10/20/2024 3:30 PM EST Office Visit Pav CC Head, Neck & Respiratory [address] [facility], 2nd [place] [address] Germaine Alejandro MD [address] [facility] [address] 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
--- OUTSIDE RECORDS SUMMARY | 2024-07-27 06:54 | XMS_ITS | Encounter Summary ---
Author Organization [facility] Address [address] [place] [address] Care Team Providers Care Stock Worker And Deliverer Name Role Phone Manjit Gorman MD Primary Care Provider [phone] Olegario Juarez MD Unavailable [phone] Encounter Details Date Type Department Care Team (Late Contact Info) Description 12/23/2022 Orders Only PAV CC Radiation [id number] [place] [address] Radiation Oncology, Physician, [address] [place], [place] [id number] Social History Tobacco Use Types Packs/Day Years [...] & Respiratory [address] [place] [address] 10/17/2024 9:00 AM EST Appointment [facility] PET Scan 800 [place] [address] 10/17/2024 10:00 AM EST Appointment [facility] PET Scan 800 [place] [address] 10/17/2024 11:00 AM EST Office Visit Pav CC Head, Neck & Respiratory 800 [facility], [address]nd [place] [address] Juan Pablo Cee MD [address] [facility] [address] [place] [address] 10/17/2024 1:00 PM EST Clinical Support Pav CC Head, Neck & Respiratory 800 [facility], [address]nd [place] [address] 10/17/2024 2:20 PM EST Appointment PAV G Radiology [address] [place] [address] 10/20/2024 3:30 PM EST Office Visit Pav CC Head, Neck & Respiratory 800 [facility], [address] [place] [address] Germaine Alejandro MD 800 [facility] [place] [facility] [address] [place] [address] documented as of this encounter Procedures Procedure Name Priority Date/Time Associated Diagnosis Comments RAD ONC ARIA SESSION SUMMARY Routine 12/23/2022 1:16 PM EDT documented in this encounter Results * Rad Onc Aria Session Summary (12/23/2022 1:16 PM EDT) Course ID C1 ARIA RADIATION ONCOLOGY Course Intent Curative ARIA RADIATION ONCOLOGY Course Start Date 10/30/2022 3:11 PM ARIA RADIATION ONCOLOGY Course First Treatment Date 11/11/2022 11:30 AM ARIA RADIATION ONCOLOGY Course Last Treatment Date 12/23/2022 1:09 PM ARIA RADIATION ONCOLOGY Course Elapsed Days 42 ARIA RADIATION ONCOLOGY Reference Point ID RtOropharyn+Neck ARIA RADIATION ONCOLOGY Reference Point Dosage Given to Date 60 Gy ARIA RADIATION ONCOLOGY Reference Point Session Dosage Given 2 Gy ARIA RADIATION ONCOLOGY Plan ID RtOropharynx ARIA RADIATION ONCOLOGY Plan Name H&N ARIA RADIATION ONCOLOGY Plan Fractions Treated to Date 30 ARIA RADIATION ONCOLOGY Plan Total Fractions Prescribed 35 ARIA RADIATION ONCOLOGY Plan Prescribed Dose Per Fraction 2 Gy ARIA RADIATION ONCOLOGY Plan Total Prescribed Dose 7,000 CGy ARIA RADIATION ONCOLOGY Plan Primary Reference Point RtOropharyn+Neck ARIA RADIATION ONCOLOGY 12/23/2022 1:16 PM EDT Physician Radiation Oncology RADIATION ONCOLO GY ORDERABLES Final Result ARIA RADIATION ONCOLOGY documented in this encounter Visit Diagnoses Not on filedocumented in this encounter Additional Health Concerns Assessment Noted Time A fall risk assessment has been complete d for the patient 12/23/2022 1:18 PM EDT documented as of this encounter Care Teams Stock Worker And Deliverer Relationship Specialty Start Date End Date Manjit Gorman MD [address] [place] [address] PCP - General 09/23/22 Olegario Juarez MD [address] [address] Consulting Physician Radiation Oncology 10/29/2207/05 documented as of this encounter
--- OUTSIDE RECORDS SUMMARY | 2024-07-27 06:54 | XMS_ITS | Encounter Summary ---
Author Organization [facility] Address [address] [place] [address] Care Team Providers Care Salesperson Furniture Name Role Phone Manjit Gorman MD Primary Care Provider [phone] Olegario Juarez MD Unavailable [phone] Encounter Details Date Type Department Care Team (Late Contact Info) Description 12/15/2022 Orders Only [facility] Radiation [id number] [place] [address] Radiation Oncology, Physician, [address] [place], [place] [id number] Social History Tobacco Use Types Packs/Day Years [...] & Respiratory [address], 2nd [place] [address] 10/17/2024 9:00 AM EST Appointment [facility] PET Scan [address] [place] [address] 10/17/2024 10:00 AM EST Appointment [facility] PET Scan [address] [place] [address] 10/17/2024 11:00 AM EST Office Visit [facility] Head, Neck & Respiratory 800 [facility], 2nd [place] [address] Juan Pablo Cee MD [address] [facility] [address] [place] [address] 10/17/2024 1:00 PM EST Clinical Support Pav [facility] Head, Neck & Respiratory 800 [facility], 2nd [place] [address] 10/17/2024 2:20 PM EST Appointment [facility] Radiology [address] [place] [address] 10/20/2024 3:30 PM EST Office Visit Pav CC Head, Neck & Respiratory 800 [facility], [address] [place] [address] Germaine Alejandro MD 800 [facility] [place] [facility] [address] [place] [address] documented as of this encounter Procedures Procedure Name Priority Date/Time Associated Diagnosis Comments RAD ONC ARIA SESSION SUMMARY Routine 12/15/2022 1:47 PM EDT documented in this encounter Results * Rad Onc Aria Session Summary (12/15/2022 1:47 PM EDT) Course ID C1 ARIA RADIATION ONCOLOGY Course Intent Curative ARIA RADIATION ONCOLOGY Course Start Date 10/30/2022 3:11 PM ARIA RADIATION ONCOLOGY Course First Treatment Date 11/11/2022 11:30 AM ARIA RADIATION ONCOLOGY Course Last Treatment Date 12/15/2022 1:40 PM ARIA RADIATION ONCOLOGY Course Elapsed Days 34 ARIA RADIATION ONCOLOGY Reference Point ID RtOropharyn+Neck ARIA RADIATION ONCOLOGY Reference Point Dosage Given to Date 48 Gy ARIA RADIATION ONCOLOGY Reference Point Session Dosage Given 2 Gy ARIA RADIATION ONCOLOGY Plan ID RtOropharynx ARIA RADIATION ONCOLOGY Plan Name H&N ARIA RADIATION ONCOLOGY Plan Fractions Treated to Date 24 ARIA RADIATION ONCOLOGY Plan Total Fractions Prescribed 35 ARIA RADIATION ONCOLOGY Plan Prescribed Dose Per Fraction 2 Gy ARIA RADIATION ONCOLOGY Plan Total Prescribed Dose 7,000 CGy ARIA RADIATION ONCOLOGY Plan Primary Reference Point RtOropharyn+Neck ARIA RADIATION ONCOLOGY 12/15/2022 1:47 PM EDT Physician Radiation Oncology RADIATION ONCOLO GY ORDERABLES Final Result ARIA RADIATION ONCOLOGY documented in this encounter Visit Diagnoses Not on filedocumented in this encounter Additional Health Concerns Assessment Noted Time A fall risk assessment has been complete d for the patient 12/09/2022 12:57 PM EDT documented as of this encounter Care Teams Salesperson Furniture Relationship Specialty Start Date End Date Manjit Gorman MD [address] [place] [address] PCP - General 09/23/22 Olegario Juarez MD [address] [address] Consulting Physician Radiation Oncology 10/29/2207/05 documented as of this encounter
--- OUTSIDE RECORDS SUMMARY | 2024-07-27 06:54 | XMS_ITS | Encounter Summary ---
Author Organization [facility] Address [address] [place] [id number] Care Team Providers Care Glass Vial Filler Name Role Phone Manjit Gorman MD Primary Care Provider [phone] Olegario Juarez MD Unavailable [phone] Encounter Details Date Type Department Care Team (Latest Contact Info) Description 12/12/2022 12:34 PM EDT - 12/12/2022 11:59 PM EDT Hospital Encounter [facility] Radiation [id number] [place] [address] Discharge Disposition: Still a Patient Social History [...] by mouth 3 (three) times a day. 33496 mL 2 11/17/2022 3 dexamethasone (Decadron) 4 [...] & Respiratory 800 [facility], 2nd [place] [address] 10/17/2024 9:00 AM EST Appointment [facility] PET Scan 800 [place] [address] 10/17/2024 10:00 AM EST Appointment [facility] PET Scan 800 [place] [address] 10/17/2024 11:00 AM EST Office Visit Pav CC Head, Neck & Respiratory 800 [facility], 2nd [place] [address] Juan Pablo Cee MD [address] [facility] [address] [place] [address] 10/17/2024 1:00 PM EST Clinical Support Pav CC Head, Neck & Respiratory 800 [facility], 2nd [place] [address] 10/17/2024 2:20 PM EST Appointment [facility] Radiology [address] [place] [address] 10/20/2024 3:30 PM EST Office Visit Pav CC Head, Neck & Respiratory 800 [facility], 2nd [place] [address] Germaine Alejandro MD 800 [facility] [address] [place] [address] documented as of this encounter Visit Diagnoses Not on filedocumented in this encounter Additional Health Concerns Assessment Noted Time A fall risk assessment has been complete d for the patient 12/09/2022 12:57 PM EDT documented as of this encounter Care Teams Glass Vial Filler Relationship Specialty Start Date End Date Manjit Gorman MD [address] [place], [place] [id number] PCP - General 09/23/22 Olegario Juarez MD 800 [facility] [address] [place] [address] Consulting Physician Radiation Oncology 10/29/2207/05 documented as of this encounter
--- OUTSIDE RECORDS SUMMARY | 2024-07-27 06:54 | XMS_ITS | Encounter Summary ---
Author Organization [facility] Address [address] [id number] Care Team Providers Care Biology Instructor Name Role Phone Manjit Gorman MD Primary Care Provider Olegario Juarez MD Unavailable [phone] Encounter Details Date Type Department Care Team (Latest Contact Info) Description 12/16/2022 12:33 PM EDT - 12/16/2022 11:59 PM EDT Hospital Encounter [facility] Radiation [id number] [place] [address] Discharge Disposition: Still a Patient Social History [...] by mouth 3 (three) times a day. 65175 mL 2 11/17/2022 3 dexamethasone (Decadron) 4 [...] 800 [facility], 2nd [place] [address] 10/17/2024 9:00 AM EST Appointment [facility] PET Scan 800 [place] [address] 10/17/2024 10:00 AM EST Appointment [facility] PET Scan [address] [place] [address] 10/17/2024 11:00 AM EST Office Visit [facility] CC Head, Neck & Respiratory 800 [facility], 2nd [place] [address] Juan Pablo Cee MD [address] [facility] [address] [place] [address] 10/17/2024 1:00 PM EST Clinical Support Pav CC Head, Neck & Respiratory 800 [facility], 2nd [place] [address] 10/17/2024 2:20 PM EST Appointment [facility] Radiology [address] [place] [address] 10/20/2024 3:30 PM EST Office Visit [facility] CC Head, Neck & Respiratory 800 [facility], 2nd [place] [address] Germaine Alejandro MD 800 [facility] [address] [place] [address] documented as of this encounter Visit Diagnoses Not on filedocumented in this encounter Additional Health Concerns Assessment Noted Time A fall risk assessment has been complete d for the patient 12/16/2022 12:52 PM EDT documented as of this encounter Care Teams Biology Instructor Relationship Specialty Start Date End Date Manjit Gorman MD [address] [place], [place] [phone] PCP - General 09/23/22 Olegario Juarez MD 800 [facility] [address] [place] [address] Consulting Physician Radiation Oncology 10/29/2207/05 documented as of this encounter
--- OUTSIDE RECORDS SUMMARY | 2024-07-27 06:54 | XMS_ITS | Encounter Summary ---
Author Organization [facility] Address [address] [address] [id number] Care Team Providers Care Mold Builder Name Role Phone Manjit Gorman MD Primary Care Provider [phone] Olegario Juarez MD Unavailable [phone] Encounter Details Date Type Department Care Team (Latest Contact Info) Description 12/24/2022 12:32 PM EDT - 12/24/2022 11:59 PM EDT Hospital Encounter [facility] Radiation [id number] [place] [address] Discharge Disposition: Still a Patient Social History [...] by mouth 3 (three) times a day. 88160 mL 2 11/17/2022 3 dexamethasone (Decadron) 4 [...] Pav CC Head, Neck & Respiratory 800 [facility], 2nd [place] [address] 10/17/2024 9:00 AM EST Appointment [facility] PET Scan 800 [place] [address] 10/17/2024 10:00 AM EST Appointment [facility] PET Scan 800 [place] [address] 10/17/2024 11:00 AM EST Office Visit [facility] CC Head, Neck & Respiratory 800 [facility], 2nd [place] [address] Juan Pablo Cee MD [address] [facility] [address] [place] [address] 10/17/2024 1:00 PM EST Clinical Support Pav CC Head, Neck & Respiratory 800 [facility], 2nd [place] [address] 10/17/2024 2:20 PM EST Appointment [facility] G Radiology [address] [place] [address] 10/20/2024 3:30 PM EST Office Visit [facility] CC Head, Neck & Respiratory 800 [facility], 2nd [place] [address] Germaine Alejandro MD 800 [facility] [address] [place] [address] documented as of this encounter Visit Diagnoses Not on filedocumented in this encounter Additional Health Concerns Assessment Noted Time A fall risk assessment has been complete d for the patient 12/23/2022 1:18 PM EDT documented as of this encounter Care Teams Mold Builder Relationship Specialty Start Date End Date Manjit Gorman MD [address] [place], [place] [id number] PCP - General 09/23/22 Olegario Juarez MD 800 [facility] [address] [place] [address] Consulting Physician Radiation Oncology 10/29/2207/05 documented as of this encounter
--- OUTSIDE RECORDS SUMMARY | 2024-07-27 06:54 | XMS_ITS | Encounter Summary ---
Author Organization [facility] Address [address] [place] [address] Care Team Providers Care Mortician Helper Name Role Phone Manjit Gorman MD Primary Care Provider [phone] Olegario Juarez MD Unavailable [phone] Encounter Details Date Type Department Care Team (Late Contact Info) Description 12/19/2022 Orders Only [facility] Radiation [id number] [place] [address] Radiation Oncology, Physician, [address] [place], [place] [id number] Social History Tobacco Use Types Packs/Day Years [...] & Respiratory [address], 2nd [place] [address] 10/17/2024 9:00 AM EST Appointment [facility] PET Scan 800 [place] [address] 10/17/2024 10:00 AM EST Appointment [facility] PET Scan 800 [place] [address] 10/17/2024 11:00 AM EST Office Visit Pav CC Head, Neck & Respiratory 800 [facility], 2nd [place] [address] Juan Pablo Cee MD [address] [facility] [address] [place] [address] 10/17/2024 1:00 PM EST Clinical Support Pav CC Head, Neck & Respiratory 800 [facility], 2nd [place] [address] 10/17/2024 2:20 PM EST Appointment [facility] G Radiology [address] [place] [address] 10/20/2024 3:30 PM EST Office Visit Pav CC Head, Neck & Respiratory 800 [facility], [address]nd [place] [address] Germaine Alejandro MD 800 [facility] [place] [facility] [address] [place] [address] documented as of this encounter Procedures Procedure Name Priority Date/Time Associated Diagnosis Comments RAD ONC ARIA SESSION SUMMARY Routine 12/19/2022 1:15 PM EDT documented in this encounter Results * Rad Onc Aria Session Summary (12/19/2022 1:15 PM EDT) Course ID C1 ARIA RADIATION ONCOLOGY Course Intent Curative ARIA RADIATION ONCOLOGY Course Start Date 10/30/2022 3:11 PM ARIA RADIATION ONCOLOGY Course First Treatment Date 11/11/2022 11:30 AM ARIA RADIATION ONCOLOGY Course Last Treatment Date 12/19/2022 1:08 PM ARIA RADIATION ONCOLOGY Course Elapsed Days 38 ARIA RADIATION ONCOLOGY Reference Point ID RtOropharyn+Neck ARIA RADIATION ONCOLOGY Reference Point Dosage Given to Date 56 Gy ARIA RADIATION ONCOLOGY Reference Point Session Dosage Given 2 Gy ARIA RADIATION ONCOLOGY Plan ID RtOropharynx ARIA RADIATION ONCOLOGY Plan Name H&N ARIA RADIATION ONCOLOGY Plan Fractions Treated to Date 28 ARIA RADIATION ONCOLOGY Plan Total Fractions Prescribed 35 ARIA RADIATION ONCOLOGY Plan Prescribed Dose Per Fraction 2 Gy ARIA RADIATION ONCOLOGY Plan Total Prescribed Dose 7,000 CGy ARIA RADIATION ONCOLOGY Plan Primary Reference Point RtOropharyn+Neck ARIA RADIATION ONCOLOGY 12/19/2022 1:15 PM EDT Physician Radiation Oncology RADIATION ONCOLO GY ORDERABLES Final Result ARIA RADIATION ONCOLOGY documented in this encounter Visit Diagnoses Not on filedocumented in this encounter Additional Health Concerns Assessment Noted Time A fall risk assessment has been complete d for the patient 12/16/2022 12:52 PM EDT documented as of this encounter Care Teams Mortician Helper Relationship Specialty Start Date End Date Manjit Gorman MD [address] [place] [address] PCP - General 09/23/22 Olegario Juarez MD [address] [address] Consulting Physician Radiation Oncology 10/29/2207/05 documented as of this encounter
--- OUTSIDE RECORDS SUMMARY | 2024-07-27 06:54 | XMS_ITS | Encounter Summary ---
Author Organization [facility] Address [address] [id number] Care Team Providers Care Boiler Blower Name Role Phone Manjit Gorman MD Primary Care Provider [phone] Olegario Juarez MD Unavailable [phone] Encounter Details Date Type Department Care Team (Latest Contact Info) Description 12/22/2022 4:35 AM EDT - 12/22/2022 12:33 PM EDT Hospital Encounter [facility] Radiation [id number] [place] [address] Discharge Disposition: Still a Patient Social History [...] by mouth 3 (three) times a day. [address] mL 2 11/17/2022 3 dexamethasone (Decadron) 4 [...] Respiratory 800 [facility], 2nd [place] [address] 10/17/2024 9:00 AM EST Appointment [facility] PET Scan 800 [place] [address] 10/17/2024 10:00 AM EST Appointment [facility] PET Scan 800 [place] [address] 10/17/2024 11:00 AM EST Office Visit Pav CC Head, Neck & Respiratory 800 [facility], 2nd [place] [address] Juan Pablo Cee MD [address] [facility] [address] [place] [address] 10/17/2024 1:00 PM EST Clinical Support Pav CC Head, Neck & Respiratory 800 [facility], 2nd [place] [address] 10/17/2024 2:20 PM EST Appointment P[facility] G Radiology [address] [place] [address] 10/20/2024 3:30 PM EST Office Visit Pav CC Head, Neck & Respiratory 800 [facility], 2nd [place] [address] Germaine Alejandro MD 800 [facility] [address] [place] [address] documented as of this encounter Visit Diagnoses Not on filedocumented in this encounter Additional Health Concerns Assessment Noted Time A fall risk assessment has been complete d for the patient 12/16/2022 12:52 PM EDT documented as of this encounter Care Teams Boiler Blower Relationship Specialty Start Date End Date Manjit Gorman MD [address] [place], [place] [phone] PCP - General 09/23/22 Olegario Juarez MD 800 [facility] [address] [place] [address] Consulting Physician Radiation Oncology 10/29/2207/05 documented as of this encounter
--- OUTSIDE RECORDS SUMMARY | 2024-07-27 06:54 | XMS_ITS | Encounter Summary ---
Author Organization [facility] Address [address] [place] [address] Care Team Providers Care Inventory Control Planner Name Role Phone Manjit Gorman MD Primary Care Provider [phone] Olegario Juarez MD Unavailable [phone] Encounter Details Date Type Department Care Team ([facility] Contact Info) Description 12/22/2022 Orders Only Pav CC Head, Neck & Respiratory 800 [facility], [address]nd [place] [address] Kenzie Pardo Research subject (Primary Dx) Social [...] Upcoming Encounters Date Type Department Care Team ([facility] Contact Info) Description 10/17/2024 8:00 AM EST Clinical Support Pav CC Head, Neck & Respiratory 800 [facility], 2nd [place] [address] 10/17/2024 9:00 AM EST Appointment [facility] PET Scan 800 [place] [address] 10/17/2024 10:00 AM EST Appointment [facility] PET Scan 800 [place] [address] 10/17/2024 11:00 AM EST Office Visit Pav CC Head, Neck & Respiratory [address] [address] Juan Pablo Cee MD [address] [facility] [address] [place] [address] 10/17/2024 1:00 PM EST Clinical Support Pav CC Head, Neck & Respiratory [address] [address] 10/17/2024 2:20 PM EST Appointment PAV G Radiology [address] [place] [address] 10/20/2024 3:30 PM EST Office Visit Pav CC Head, Neck & Respiratory [address] [address] Germaine Alejandro MD 800 [facility] [address] [place] [address] documented as of this encounter Visit Diagnoses Diagnosis Research subject- Primary documented in this encounter Additional Health Concerns Assessment Noted Time A fall risk assessment has been complete d for the patient 12/16/2022 12:52 PM EDT documented as of this encounter Care Teams Inventory Control Planner Relationship Specialty Start Date End Date Manjit Gorman MD [address] [place], [place] [phone] PCP - General 09/23/22 Olegario Juarez MD 800 [facility] [address] [place] [address] Consulting Physician Radiation Oncology 10/29/2207/05 documented as of this encounter
--- OUTSIDE RECORDS SUMMARY | 2024-07-27 06:54 | XMS_ITS | Encounter Summary ---
Author Organization [facility] Address [address] [place] [address] Care Team Providers Care Pointer Helper Name Role Phone Manjit Gorman MD Primary Care Provider [phone] Olegario Juarez MD Unavailable [phone] Encounter Details Date Type Department Care Team (Late Contact Info) Description 12/16/2022 Orders Only [facility] Radiation [address] [place] [address] Radiation Oncology, Physician, [address] [place], [place] [phone] Social History Tobacco Use Types Packs/Day Years [...] & Respiratory [address], [address] [place] [address] 10/17/2024 9:00 AM EST Appointment [facility] PET Scan 800 [place] [address] 10/17/2024 10:00 AM EST Appointment [facility] PET Scan 800 [place] [address] 10/17/2024 11:00 AM EST Office Visit Pav CC Head, Neck & Respiratory 800 [facility], 2nd [place] [address] Juan Pablo Cee MD [address] [facility] [address] [place] [address] 10/17/2024 1:00 PM EST Clinical Support Pav CC Head, Neck & Respiratory 800 [facility], [address]nd [place] [address] 10/17/2024 2:20 PM EST Appointment PAV G Radiology [address] [place] [address] 10/20/2024 3:30 PM EST Office Visit Pav CC Head, Neck & Respiratory 800 [facility], [address] [place] [address] Germaine Alejandro MD 800 [facility] [place] [facility] [address] [place] [address] documented as of this encounter Procedures Procedure Name Priority Date/Time Associated Diagnosis Comments RAD ONC ARIA SESSION SUMMARY Routine 12/16/2022 12:52 PM EDT documented in this encounter Results * Rad Onc Aria Session Summary (12/16/2022 12:52 PM EDT) Course ID C1 ARIA RADIATION ONCOLOGY Course Intent Curative ARIA RADIATION ONCOLOGY Course Start Date 10/30/2022 3:11 PM ARIA RADIATION ONCOLOGY Course First Treatment Date 11/11/2022 11:30 AM ARIA RADIATION ONCOLOGY Course Last Treatment Date 12/16/2022 12:45 PM ARIA RADIATION ONCOLOGY Course Elapsed Days 35 ARIA RADIATION ONCOLOGY Reference Point ID RtOropharyn+Neck ARIA RADIATION ONCOLOGY Reference Point Dosage Given to Date 50 Gy ARIA RADIATION ONCOLOGY Reference Point Session Dosage Given 2 Gy ARIA RADIATION ONCOLOGY Plan ID RtOropharynx ARIA RADIATION ONCOLOGY Plan Name H&N ARIA RADIATION ONCOLOGY Plan Fractions Treated to Date 25 ARIA RADIATION ONCOLOGY Plan Total Fractions Prescribed 35 ARIA RADIATION ONCOLOGY Plan Prescribed Dose Per Fraction 2 Gy ARIA RADIATION ONCOLOGY Plan Total Prescribed Dose 7,000 CGy ARIA RADIATION ONCOLOGY Plan Primary Reference Point RtOropharyn+Neck ARIA RADIATION ONCOLOGY 12/16/2022 12:5 2 PM EDT Physician Radiation Oncology RADIATION ONCOLO GY ORDERABLES Final Result ARIA RADIATION ONCOLOGY documented in this encounter Visit Diagnoses Not on filedocumented in this encounter Additional Health Concerns Assessment Noted Time A fall risk assessment has been complete d for the patient 12/16/2022 12:52 PM EDT documented as of this encounter Care Teams Pointer Helper Relationship Specialty Start Date End Date Manjit Gorman MD [address] [place] [address] PCP - General 09/23/22 Olegario Juarez MD [address] [address] Consulting Physician Radiation Oncology 10/29/2207/05 documented as of this encounter
--- OUTSIDE RECORDS SUMMARY | 2024-07-27 06:54 | XMS_ITS | Encounter Summary ---
Author Organization [facility] Address [address] [id number] Care Team Providers Care Senior Painter Name Role Phone Manjit Gorman MD Primary Care Provider [phone] Olegario Juarez MD Unavailable [phone] Reason for Visit * Reason Comments OTV Encounter Details Date Type Department Care Team (Latest Contact Info) Description 12/16/2022 12:33 PM EDT - 12/16/2022 11:59 PM EDT Hospital Encounter [facility] Radiation [id number] [place] [address] Bossman Moscoso MD 800 [facility] [address] [place] [address] Primary cancer of oropharynx (CMS/HCC) (Primary Dx) Discharge Disposition: Still a [...] Sign Reading Time Taken Comments Blood Pressure 114/65 12/16/2022 12:52 PM EDT Pulse 67 12/16/2022 12:52 PM EDT Temperature 36.7 ??C (98 ??F) 12/16/2022 12:52 PM EDT Respiratory Rate 16 12/16/2022 12:52 PM EDT Oxygen Saturation 94% 12/16/2022 12:52 PM EDT Inhaled Oxygen Concentration - - Weight 75 kg (165 lb 5.5 oz) 12/16/2022 12:52 PM EDT Height - - Body Mass Index 21.23 12/05/2022 9:27 AM EDT documented in this [...] by mouth 3 (three) times a day. 55091 mL 2 11/17/2022 3 dexamethasone (Decadron) 4 [...] encounter Miscellaneous Notes * Progress Notes - Bossman Moscoso MD - 12/16/2022 1:00 PM EDT Patient Name: Erick Sierra Date of : 1950 72 y.o. 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 Vital Signs for this encounter: BSA: 1.98 meters squared Visit Vitals BP 114/65 Pulse 67 Temp 36.7 ??C (98 ??F) Resp 16 Wt 75 kg (165 lb 5.5 oz) SpO2 94% BMI 21.23 kg/m?? Smoking Status Never BSA 1.98 m?? Physician Notes: [x] Reviewed chart and dosimetry - Current Dose - *see signed printed weekly treatment record [x] Reviewed treatment setup - Anticipated Dose - *see signed printed weekly treatment record [x] Reviewed port films or images - Examination of patient for evaluation and progress of treatment Symptomatic; fully ambulatory Subjective Mr. Sierra presents today for his status check after completing 25/35 fractions. He reports concern about secretions which have been increasing in volume but is using mucinex. He continues to use mouthwash #1 regularly, and we have encouraged his continued use to manage these secretions. Assessment/Plan - We will continue RT as planned - Continue Aquaphor, MW#1 Radiation Treatments Active Plans H&N [RtOropharynx] Most recent treatment: Dose planned: 200 cGy (fraction 25 on 12/16/2022) Total: Dose planned: 7,000 cGy (35 fractions) Elapsed Days: 35 Reference Points RtOropharyn+Neck Most recent treatment: Dose given: 200 cGy (on 12/16/2022) Total: Dose given: 5,000 cGy Elapsed Days: 35 Historical No historical radiation treatments to show. Resident signature: Physician signature: MD NURA BucknerEY PAV CC RADIATION [address] [address] documented in this encounter Plan of Treatment Upcoming Encounters Date Type Department Care Team ([facility] st Contact Info) Description 10/17/2024 8:00 AM EST Clinical Support Pav CC Head, Neck & Respiratory [address] [address] 10/17/2024 9:00 AM EST Appointment [facility] PET Scan 800 [place] [address] 10/17/2024 10:00 AM EST Appointment [facility] PET Scan [address] [phone] 10/17/2024 11:00 AM EST Office Visit Pav CC Head, Neck & Respiratory 800 [place] [address] Juan Pablo Cee MD [address] [facility] [address] [place] [address] 10/17/2024 1:00 PM EST Clinical Support Pav CC Head, Neck & Respiratory [address] [address] 10/17/2024 2:20 PM EST Appointment PAV G Radiology [address] [place] [address] 10/20/2024 3:30 PM EST Office Visit Pav CC Head, Neck & Respiratory [address] [address] Germaine Alejandro MD 800 [facility] [address] [place] [address] documented as of this encounter Visit Diagnoses Diagnosis Primary cancer of oropharynx (CMS/HCC)- Primary documented in this encounter Additional Health Concerns Assessment Noted Time A fall risk assessment has been complete d for the patient 12/16/2022 12:52 PM EDT documented as of this encounter Care Teams Senior Painter Relationship Specialty Start Date End Date Manjit Gorman MD [address] [place], [place] [phone] PCP - General 09/23/22 Olegario Juarez MD [address] [address] Consulting Physician Radiation Oncology 10/29/2207/05 documented as of this encounter
--- OUTSIDE RECORDS SUMMARY | 2024-07-27 06:54 | XMS_ITS | Encounter Summary ---
Author Organization [facility] Address [address] [place] [address] Care Team Providers Care Auto Clutch Specialist Name Role Phone Manjit Gorman MD Primary Care Provider Olegario Juarez MD Unavailable [phone] Encounter Details Date Type Department Care Team (Latest Contact Info) Description 12/15/2022 Travel Social History Tobacco Use Types Packs/Day [...] CC Head, Neck & Respiratory 800 [facility], 2nd [place] [address] 10/17/2024 9:00 AM EST Appointment [facility] PET Scan 800 [place] [address] 10/17/2024 10:00 AM EST Appointment [facility] PET Scan 800 [place] [address] 10/17/2024 11:00 AM EST Office Visit Pav CC Head, Neck & Respiratory 800 [facility], 2nd [place] [address] Juan Pablo Cee MD [address] [facility] [address] [place] [address] 10/17/2024 1:00 PM EST Clinical Support Pav CC Head, Neck & Respiratory 800 [facility], 2nd [place] [address] 10/17/2024 2:20 PM EST Appointment PAV G Radiology [address] [place] [address] 10/20/2024 3:30 PM EST Office Visit Pav CC Head, Neck & Respiratory 800 [facility], [address]nd [place] [address] Germaine Alejandro MD [address] [place] [address] documented as of this encounter Visit Diagnoses Not on filedocumented in this encounter Additional Health Concerns Assessment Noted Time A fall risk assessment has been complete d for the patient 12/09/2022 12:57 PM EDT documented as of this encounter Care Teams Auto Clutch Specialist Relationship Specialty Start Date End Date Manjit Gorman MD [address] [place], [place] [phone] PCP - General 09/23/22 Olegario Juarez MD [address] [facility] [address] [place] [address] Consulting Physician Radiation Oncology 10/29/2207/05 documented as of this encounter
--- OUTSIDE RECORDS SUMMARY | 2024-07-27 06:54 | XMS_ITS | Encounter Summary ---
Author Organization [facility] Address [address] [place] [address] Care Team Providers Care Furnace Feeder Name Role Phone Manjit Gorman MD Primary Care Provider [phone] Olegario Juarez MD Unavailable [phone] Encounter Details Date Type Department Care Team (Latest Contact Info) Description 12/19/2022 Travel Social History Tobacco Use Types Packs/Day [...] CC Head, Neck & Respiratory 800 [facility], 2nd [place] [address] 10/17/2024 9:00 AM EST Appointment [facility] PET Scan 800 [place] [address] 10/17/2024 10:00 AM EST Appointment [facility] PET Scan 800 [place] [address] 10/17/2024 11:00 AM EST Office Visit Pav CC Head, Neck & Respiratory 800 [facility], 2nd [place] [address] Juan Pablo Cee MD [address] [facility] [address] [place] [address] 10/17/2024 1:00 PM EST Clinical Support Pav CC Head, Neck & Respiratory 800 [facility], 2nd [place] [address] 10/17/2024 2:20 PM EST Appointment PAV G Radiology [address] [place] [address] 10/20/2024 3:30 PM EST Office Visit Pav CC Head, Neck & Respiratory 800 [facility], [address]nd [place] [address] Germaine Alejandro MD [address] [place] [address] documented as of this encounter Visit Diagnoses Not on filedocumented in this encounter Additional Health Concerns Assessment Noted Time A fall risk assessment has been complete d for the patient 12/16/2022 12:52 PM EDT documented as of this encounter Care Teams Furnace Feeder Relationship Specialty Start Date End Date Manjit Gorman MD [address] [place], [place] [phone] PCP - General 09/23/22 Olegario Juarez MD [address] [facility] [address] [place] [address] Consulting Physician Radiation Oncology 10/29/2207/05 documented as of this encounter
--- OUTSIDE RECORDS SUMMARY | 2024-07-27 06:54 | XMS_ITS | Encounter Summary ---
Author Organization [facility] Address [address] [place] [address] Care Team Providers Care Special Forces Warrant Officer Name Role Phone Manjit Gorman MD Primary Care Provider [phone] Olegario Juarez MD Unavailable [phone] Encounter Details Date Type Department Care Team (Latest Contact Info) Description 12/11/2022 Travel Social History Tobacco Use Types Packs/Day [...] Head, Neck & Respiratory 800 [facility], 2nd [place] [address] 10/17/2024 9:00 AM EST Appointment [facility] PET Scan 800 [place] [address] 10/17/2024 10:00 AM EST Appointment [facility] PET Scan 800 [place] [address] 10/17/2024 11:00 AM EST Office Visit Pav CC Head, Neck & Respiratory 800 [facility], 2nd [place] [address] Juan Pablo Cee MD [address] [facility] [address] [place] [address] 10/17/2024 1:00 PM EST Clinical Support Pav CC Head, Neck & Respiratory 800 [facility], 2nd [place] [address] 10/17/2024 2:20 PM EST Appointment PAV G Radiology [address] [place] [address] 10/20/2024 3:30 PM EST Office Visit Pav CC Head, Neck & Respiratory 800 [facility], [address]nd [place] [address] Germaine Alejandro MD [address] [place] [address] documented as of this encounter Visit Diagnoses Not on filedocumented in this encounter Additional Health Concerns Assessment Noted Time A fall risk assessment has been complete d for the patient 12/09/2022 12:57 PM EDT documented as of this encounter Care Teams Special Forces Warrant Officer Relationship Specialty Start Date End Date Manjit Gorman MD [address] [place], [place] [phone] PCP - General 09/23/22 Olegario Juarez MD [address] [facility] [address] [place] [address] Consulting Physician Radiation Oncology 10/29/2207/05 documented as of this encounter
--- OUTSIDE RECORDS SUMMARY | 2024-07-27 06:54 | XMS_ITS | Encounter Summary ---
Author Organization [facility] Address [address] [id number] Care Team Providers Care Glass Mold Repairer Name Role Phone Manjit Gorman MD Primary Care Provider [phone] Olegario Juarez MD Unavailable [phone] Encounter Details Date Type Department Care Team (Latest Contact Info) Description 12/18/2022 12:32 PM EDT - 12/18/2022 11:59 PM EDT Hospital Encounter P[facility] CC Radiation [address] [place] [address] Discharge Disposition: Still a Patient Social History [...] by mouth 3 (three) times a day. 41342 mL 2 11/17/2022 3 dexamethasone (Decadron) 4 [...] Respiratory 800 [facility], [address]nd [place] [address] 10/17/2024 9:00 AM EST Appointment [facility] PET Scan 800 [place] [address] 10/17/2024 10:00 AM EST Appointment [facility] PET Scan 800 [place] [address] 10/17/2024 11:00 AM EST Office Visit Pav CC Head, Neck & Respiratory 800 [facility], 2nd [place] [address] Juan Pablo Cee MD [address] [facility] [address] [place] [address] 10/17/2024 1:00 PM EST Clinical Support Pav CC Head, Neck & Respiratory 800 [facility], 2nd [place] [address] 10/17/2024 2:20 PM EST Appointment PAV G Radiology [address] [place] [address] 10/20/2024 3:30 PM EST Office Visit Pav CC Head, Neck & Respiratory 800 [facility], 2nd [place] [address] Germaine Alejandro MD 800 [facility] [address] [place] [address] documented as of this encounter Visit Diagnoses Not on filedocumented in this encounter Additional Health Concerns Assessment Noted Time A fall risk assessment has been complete d for the patient 12/16/2022 12:52 PM EDT documented as of this encounter Care Teams Glass Mold Repairer Relationship Specialty Start Date End Date Manjit Gorman MD [address] [place], [place] [phone] PCP - General 09/23/22 Olegario Juarez MD 800 [facility] [address] [place] [address] Consulting Physician Radiation Oncology 10/29/2207/05 documented as of this encounter
--- OUTSIDE RECORDS SUMMARY | 2024-07-27 06:54 | XMS_ITS | Encounter Summary ---
Author Organization [facility] Address [address] [id number] Care Team Providers Care Customer Success Representative Name Role Phone Manjit Gorman MD Primary Care Provider Olegario Juarez MD Unavailable Encounter Details Date Type Department Care Team (Latest Contact Info) Description 12/23/2022 12:49 PM EDT - 12/23/2022 11:59 PM EDT Hospital Encounter P[facility] CC Radiation [id number] [place] [address] Discharge Disposition: Still a Patient Social History [...] by mouth 3 (three) times a day. 44935 mL 2 11/17/2022 3 dexamethasone (Decadron) 4 [...] Pav CC Head, Neck & Respiratory 800 [facility], 2nd [place] [address] 10/17/2024 9:00 AM EST Appointment [facility] PET Scan 800 [place] [address] 10/17/2024 10:00 AM EST Appointment [facility] PET Scan 800 [place] [address] 10/17/2024 11:00 AM EST Office Visit Pav CC Head, Neck & Respiratory 800 [facility], 2nd [place] [address] Juan Pablo Cee MD [address] [facility] [address] [place] [address] 10/17/2024 1:00 PM EST Clinical Support Pav CC Head, Neck & Respiratory 800 [facility], 2nd [place] [address] 10/17/2024 2:20 PM EST Appointment PAV G Radiology [address] [place] [address] 10/20/2024 3:30 PM EST Office Visit Pav CC Head, Neck & Respiratory 800 [facility], [address]nd [place] [address] Germaine Alejandro MD 800 [facility] [address] [place] [address] documented as of this encounter Visit Diagnoses Not on filedocumented in this encounter Additional Health Concerns Assessment Noted Time A fall risk assessment has been complete d for the patient 12/23/2022 1:18 PM EDT documented as of this encounter Care Teams Customer Success Representative Relationship Specialty Start Date End Date Majnit Gorman MD [address] [place], [place] [phone] PCP - General 09/23/22 Olegario Juarez MD 800 [facility] [address] [place] [address] Consulting Physician Radiation Oncology 10/29/2207/05 documented as of this encounter
--- OUTSIDE RECORDS SUMMARY | 2024-07-27 06:54 | XMS_ITS | Encounter Summary ---
Author Organization [facility] Address [address] [id number] Care Team Providers Care Consumer Recruiter Name Role Phone Manjit Gorman MD Primary Care Provider [phone] Olegario Juarez MD Unavailable [phone] Encounter Details Date Type Department Care Team (Latest Contact Info) Description 12/17/2022 12:33 PM EDT - 12/17/2022 11:59 PM EDT Hospital Encounter P[facility] CC Radiation [address] [id number] [place] [address] Discharge Disposition: Still a Patient Social History [...] by mouth 3 (three) times a day. [address]65[address] mL 2 11/17/2022 3 dexamethasone (Decadron) 4 [...] Respiratory 800 [facility], 2nd [place] [address] 10/17/2024 9:00 AM EST Appointment [facility] PET Scan 800 [place] [address] 10/17/2024 10:00 AM EST Appointment [facility] PET Scan 800 [place] [address] 10/17/2024 11:00 AM EST Office Visit Pav CC Head, Neck & Respiratory 800 [facility], 2nd [place] [address] Juan Pablo Cee MD [address] [facility] [address] [place] [address] 10/17/2024 1:00 PM EST Clinical Support Pav CC Head, Neck & Respiratory 800 [facility], 2nd [place] [address] 10/17/2024 2:20 PM EST Appointment PAV G Radiology [address] [place] [address] 10/20/2024 3:30 PM EST Office Visit Pav CC Head, Neck & Respiratory 800 [facility], 2nd [place] [address] Germaine Alejandro MD 800 [facility] [address] [place] [address] documented as of this encounter Visit Diagnoses Not on filedocumented in this encounter Additional Health Concerns Assessment Noted Time A fall risk assessment has been complete d for the patient 12/16/2022 12:52 PM EDT documented as of this encounter Care Teams Consumer Recruiter Relationship Specialty Start Date End Date Manjit Gorman MD [address] [place], [place] [phone] PCP - General 09/23/22 Olegario Juarez MD 800 [facility] [address] [place] [address] Consulting Physician Radiation Oncology 10/29/2207/05 documented as of this encounter
--- OUTSIDE RECORDS SUMMARY | 2024-07-27 06:55 | XMS_ITS | Encounter Summary ---
Author Organization [facility] Address [address] [place] [address] Care Team Providers Care Bike Shop Manager Name Role Phone Manjit Gorman MD Primary Care Provider [phone] Olegario Juarez MD Unavailable [phone] Encounter Details Date Type Department Care Team (Late Contact Info) Description 12/09/2022 Orders Only PAV CC Radiation [id number] [place] [address] Radiation Oncology, Physician, [address] [place], [place] [phone] Social History Tobacco Use Types Packs/Day Years [...] & Respiratory [address], [address] [place] [address] 10/17/2024 9:00 AM EST Appointment [facility] PET Scan 800 [place] [address] 10/17/2024 10:00 AM EST Appointment [facility] PET Scan 800 [place] [address] 10/17/2024 11:00 AM EST Office Visit Pav CC Head, Neck & Respiratory 800 [facility], 2nd [place] [address] Juan Pablo Cee MD [address] [facility] [address] [place] [address] 10/17/2024 1:00 PM EST Clinical Support Pav CC Head, Neck & Respiratory 800 [facility], [address] [place] [address] 10/17/2024 2:20 PM EST Appointment PAV G Radiology [address] [place] [address] 10/20/2024 3:30 PM EST Office Visit Pav CC Head, Neck & Respiratory 800 [facility], [address] [place] [address] Germaine Alejandro MD 800 [facility] [address] [place] [address] documented as of this encounter Procedures Procedure Name Priority Date/Time Associated Diagnosis Comments RAD ONC ARIA SESSION SUMMARY Routine 12/09/2022 12:55 PM EDT documented in this encounter Results * Rad Onc Aria Session Summary (12/09/2022 12:55 PM EDT) Course ID C1 ARIA RADIATION ONCOLOGY Course Intent Curative ARIA RADIATION ONCOLOGY Course Start Date 10/30/2022 3:11 PM ARIA RADIATION ONCOLOGY Course First Treatment Date 11/11/2022 11:30 AM ARIA RADIATION ONCOLOGY Course Last Treatment Date 12/09/2022 12:48 PM ARIA RADIATION ONCOLOGY Course Elapsed Days 28 ARIA RADIATION ONCOLOGY Reference Point ID RtOropharyn+Neck ARIA RADIATION ONCOLOGY Reference Point Dosage Given to Date 42 Gy ARIA RADIATION ONCOLOGY Reference Point Session Dosage Given 2 Gy ARIA RADIATION ONCOLOGY Plan ID RtOropharynx ARIA RADIATION ONCOLOGY Plan Name H&N ARIA RADIATION ONCOLOGY Plan Fractions Treated to Date 21 ARIA RADIATION ONCOLOGY Plan Total Fractions Prescribed 35 ARIA RADIATION ONCOLOGY Plan Prescribed Dose Per Fraction 2 Gy ARIA RADIATION ONCOLOGY Plan Total Prescribed Dose 7,000 CGy ARIA RADIATION ONCOLOGY Plan Primary Reference Point RtOropharyn+Neck ARIA RADIATION ONCOLOGY 12/09/2022 12:5 5 PM EDT Physician Radiation Oncology RADIATION ONCOLO GY ORDERABLES Final Result ARIA RADIATION ONCOLOGY documented in this encounter Visit Diagnoses Not on filedocumented in this encounter Additional Health Concerns Assessment Noted Time A fall risk assessment has been complete d for the patient 12/09/2022 12:57 PM EDT documented as of this encounter Care Teams Bike Shop Manager Relationship Specialty Start Date End Date Manjit Gorman MD [address] [place] [address] PCP - General 09/23/22 Olegario Juarez MD [address] [address] Consulting Physician Radiation Oncology 10/29/2207/05 documented as of this encounter
--- OUTSIDE RECORDS SUMMARY | 2024-07-27 06:55 | XMS_ITS | Encounter Summary ---
Author Organization [facility] Address [address] [place] [address] Care Team Providers Care Diamond Sorter Name Role Phone Manjit Gorman MD Primary Care Provider [phone] Olegario Juarez MD Unavailable [phone] Encounter Details Date Type Department Care Team (Latest Contact Info) Description 12/09/2022 Travel Social History Tobacco Use Types Packs/Day [...] Pav CC Head, Neck & Respiratory 800 [facility], [address]nd [place] [address] 10/17/2024 9:00 AM EST Appointment [facility] PET Scan 800 [place] [address] 10/17/2024 10:00 AM EST Appointment [facility] PET Scan 800 [place] [address] 10/17/2024 11:00 AM EST Office Visit Pav CC Head, Neck & Respiratory 800 [facility], [address]nd [place] [address] Juan Pablo Cee MD [address] [facility] [address] [place] [address] 10/17/2024 1:00 PM EST Clinical Support Pav CC Head, Neck & Respiratory 800 [facility], [address]nd [place] [address] 10/17/2024 2:20 PM EST Appointment PAV G Radiology [address] [place] [address] 10/20/2024 3:30 PM EST Office Visit Pav CC Head, Neck & Respiratory 800 [facility], [address]nd [place] [address] Germaine Alejandro MD [address] [place] [address] documented as of this encounter Visit Diagnoses Not on filedocumented in this encounter Additional Health Concerns Assessment Noted Time A fall risk assessment has been complete d for the patient 12/09/2022 12:57 PM EDT documented as of this encounter Care Teams Diamond Sorter Relationship Specialty Start Date End Date Manjit Gorman MD [address] [place], [place] [phone] PCP - General 09/23/22 Olegario Juarez MD [address] [facility] [address] [place] [address] Consulting Physician Radiation Oncology 10/29/2207/05 documented as of this encounter
--- OUTSIDE RECORDS SUMMARY | 2024-07-27 06:55 | XMS_ITS | Encounter Summary ---
Author Organization [facility] Address [address] [place] [address] Care Team Providers Care Veneer Sample Maker Name Role Phone Manjit Gorman MD Primary Care Provider [phone] Olegario Juarez MD Unavailable [phone] Encounter Details Date Type Department Care Team (Latest Contact Info) Description 12/01/2022 Travel Social History Tobacco Use Types Packs/Day [...] suspected to have Coronavirus/COVID-19? No / Unsure 11/29/2022 10:12 AM EDT documented as of this encounter Plan of Treatment Upcoming Encounters Date Type Department Care Team (Late st Contact Info) Description 10/17/2024 8:00 AM EST Clinical Support Pav [facility] Head, Neck & Respiratory [address] [facility], 2nd [place] [address] 10/17/2024 9:00 AM EST Appointment [facility] PET Scan 800 [place] [address] 10/17/2024 10:00 AM EST Appointment [facility] PET Scan [address] [place] [address] 10/17/2024 11:00 AM EST Office Visit [facility] Head, Neck & Respiratory [address] [facility], 2nd [place] [address] Juan Pablo Cee MD [address] [facility] [address] [place] [address] 10/17/2024 1:00 PM EST Clinical Support Pav [facility] Head, Neck & Respiratory [address] [facility], 2nd [place] [address] 10/17/2024 2:20 PM EST Appointment [facility] Radiology [address] [place] [address] 10/20/2024 3:30 PM EST Office Visit [facility] Head, Neck & Respiratory [address] [facility], [address]nd [place] [address] Germaine Alejandro MD [address] [place] [address] documented as of this encounter Visit Diagnoses Not on filedocumented in this encounter Additional Health Concerns Assessment Noted Time A fall risk assessment has been complete d for the patient 11/25/2022 12:52 PM EDT documented as of this encounter Care Teams Veneer Sample Maker Relationship Specialty Start Date End Date Manjit Gorman MD [address] [place], [place] [phone] PCP - General 09/23/22 Olegario Juarez MD [address] [facility] [address] [place] [address] Consulting Physician Radiation Oncology 10/29/2207/05 documented as of this encounter
--- OUTSIDE RECORDS SUMMARY | 2024-07-27 06:55 | XMS_ITS | Encounter Summary ---
Author Organization [facility] Address [address] [id number] Care Team Providers Care Word Processor Operator Name Role Phone Manjit Gorman MD Primary Care Provider Olegario Juarez MD Unavailable [phone] Encounter Details Date Type Department Care Team (Latest Contact Info) Description 12/05/2022 12:29 PM EDT - 12/05/2022 11:59 PM EDT Hospital Encounter [facility] Radiation [id number] [place] [address] Discharge Disposition: Still a Patient Social History [...] suspected to have Coronavirus/COVID-19? No / Unsure 12/05/2022 9:26 AM EDT documented as of this encounter [...] by mouth 3 (three) times a day. 07580 mL 2 11/17/2022 3 dexamethasone (Decadron) 4 [...] Neck & Respiratory 800 [facility], 2nd [place] [address] 10/17/2024 9:00 AM EST Appointment [facility] PET Scan 800 [place] [address] 10/17/2024 10:00 AM EST Appointment [facility] PET Scan 800 [place] [address] 10/17/2024 11:00 AM EST Office Visit [facility] Head, Neck & Respiratory [address] [facility], 2nd [place] [address] Juan Pablo Cee MD [address] [facility] [address] [place] [address] 10/17/2024 1:00 PM EST Clinical Support Pav [facility] Head, Neck & Respiratory 800 [facility], 2nd [place] [address] 10/17/2024 2:20 PM EST Appointment [facility] Radiology [address] [place] [address] 10/20/2024 3:30 PM EST Office Visit [facility] Head, Neck & Respiratory 800 [facility], 2nd [place] [address] Germaine Alejandro MD [address] [facility] [address] [place] [address] documented as of this encounter Visit Diagnoses Not on filedocumented in this encounter Additional Health Concerns Assessment Noted Time A fall risk assessment has been complete d for the patient 12/05/2022 9:27 AM EDT documented as of this encounter Care Teams Word Processor Operator Relationship Specialty Start Date End Date Manjit Gorman MD [address] [place], [place] [phone] PCP - General 09/23/22 Olegario Juarez MD [address] [facility] [address] [place] [address] Consulting Physician Radiation Oncology 10/29/2207/05 documented as of this encounter
--- OUTSIDE RECORDS SUMMARY | 2024-07-27 06:55 | XMS_ITS | Encounter Summary ---
Author Organization [facility] Address [address] [place] [address] Care Team Providers Care Railcar Brake Operator Name Role Phone Manjit Gorman MD Primary Care Provider [phone] Olegario Juarez MD Unavailable [phone] Encounter Details Date Type Department Care Team (Latest Contact Info) Description 11/29/2022 Travel Social History Tobacco Use Types Packs/Day [...] Pav [facility] Head, Neck & Respiratory 800 [facility], 2nd [place] [address] 10/17/2024 9:00 AM EST Appointment [facility] PET Scan 800 [place] [address] 10/17/2024 10:00 AM EST Appointment [facility] PET Scan 800 [place] [address] 10/17/2024 11:00 AM EST Office Visit Pav CC Head, Neck & Respiratory 800 [facility], 2nd [place] [address] Juan Pablo Cee MD [address] [facility] [address] [place] [address] 10/17/2024 1:00 PM EST Clinical Support Pav CC Head, Neck & Respiratory 800 [facility], 2nd [place] [address] 10/17/2024 2:20 PM EST Appointment [facility] Radiology [address] [place] [address] 10/20/2024 3:30 PM EST Office Visit [facility] Head, Neck & Respiratory 800 [facility], [address]nd [place] [address] Germaine Alejandro MD [address] [place] [address] documented as of this encounter Visit Diagnoses Not on filedocumented in this encounter Additional Health Concerns Assessment Noted Time A fall risk assessment has been complete d for the patient 11/25/2022 12:52 PM EDT documented as of this encounter Care Teams Railcar Brake Operator Relationship Specialty Start Date End Date Manjit Gorman MD [address] [place], [place] [phone] PCP - General 09/23/22 Olegario Juarez MD [address] [facility] [address] [place] [address] Consulting Physician Radiation Oncology 10/29/2207/05 documented as of this encounter
--- OUTSIDE RECORDS SUMMARY | 2024-07-27 06:55 | XMS_ITS | Encounter Summary ---
Author Organization [facility] Address [address] [phone] Care Team Providers Care Manager Wealth Management Name Role Phone Manijt Gorman MD Primary Care Provider [phone] Olegario Juarez MD Unavailable [phone] Encounter Details Date Type Department Care Team (Latest Contact Info) Description 12/04/2022 1:07 PM EDT - 12/04/2022 11:59 PM EDT Hospital Encounter [facility] Radiation [address] [place] [address] Discharge Disposition: Still a Patient Social History [...] suspected to have Coronavirus/COVID-19? No / Unsure 12/03/2022 12:26 PM EDT documented as of this encounter [...] by mouth 3 (three) times a day. [address]5059 mL 2 11/17/2022 3 dexamethasone (Decadron) 4 [...] 800 [facility], 2nd [place] [address] 10/17/2024 9:00 AM EST Appointment [facility] PET Scan 800 [place] [address] 10/17/2024 10:00 AM EST Appointment [facility] PET Scan 800 [place] [address] 10/17/2024 11:00 AM EST Office Visit Pav [facility] Head, Neck & Respiratory 800 [facility], 2nd [place] [address] Juan Pablo Cee MD [address] [facility] [address] [place] [address] 10/17/2024 1:00 PM EST Clinical Support Pav CC Head, Neck & Respiratory 800 [facility], 2nd [place] [address] 10/17/2024 2:20 PM EST Appointment [facility] Radiology [address] [place] [address] 10/20/2024 3:30 PM EST Office Visit Pav [facility] Head, Neck & Respiratory 800 [facility], 2nd [place] [address] Germaine Alejandro MD [address] [facility] [address] [place] [address] documented as of this encounter Visit Diagnoses Not on filedocumented in this encounter Additional Health Concerns Assessment Noted Time A fall risk assessment has been complete d for the patient 12/04/2022 12:22 PM EDT documented as of this encounter Care Teams Manager Wealth Management Relationship Specialty Start Date End Date Manjit Gorman MD [address] [place], [place] [phone] PCP - General 09/23/22 Olegario Juarez MD 800 [facility] [address] [place] [address] Consulting Physician Radiation Oncology 10/29/2207/05 documented as of this encounter
--- OUTSIDE RECORDS SUMMARY | 2024-07-27 06:55 | XMS_ITS | Encounter Summary ---
Author Organization [facility] Address [address] [place] [address] Care Team Providers Care Hse Coordinator Name Role Phone Manjit Gorman MD Primary Care Provider [phone] Olegario Juarez MD Unavailable [phone] Encounter Details Date Type Department Care Team (Latest Contact Info) Description 12/06/2022 Travel Social History Tobacco Use Types Packs/Day [...] Pav [facility] Head, Neck & Respiratory 800 [facility], 2nd [place] [address] 10/17/2024 9:00 AM EST Appointment [facility] PET Scan 800 [place] [address] 10/17/2024 10:00 AM EST Appointment [facility] PET Scan 800 [place] [address] 10/17/2024 11:00 AM EST Office Visit Pav CC Head, Neck & Respiratory 800 [facility], 2nd [place] [address] Juan Pablo Cee MD [address] [facility] [address] [place] [address] 10/17/2024 1:00 PM EST Clinical Support Pav CC Head, Neck & Respiratory 800 [facility], 2nd [place] [address] 10/17/2024 2:20 PM EST Appointment [facility] G Radiology [address] [place] [address] 10/20/2024 3:30 PM EST Office Visit Pav CC Head, Neck & Respiratory 800 [facility], [address]nd [place] [address] Germaine Alejandro MD [address] [place] [address] documented as of this encounter Visit Diagnoses Not on filedocumented in this encounter Additional Health Concerns Assessment Noted Time A fall risk assessment has been complete d for the patient 12/05/2022 9:27 AM EDT documented as of this encounter Care Teams Hse Coordinator Relationship Specialty Start Date End Date Manjit Gorman MD [address] [place], [place] [phone] PCP - General 09/23/22 Olegario Juarez MD [address] [facility] [address] [place] [address] Consulting Physician Radiation Oncology 10/29/2207/05 documented as of this encounter
--- OUTSIDE RECORDS SUMMARY | 2024-07-27 06:55 | XMS_ITS | Encounter Summary ---
Author Organization [facility] Address [address] [place] [address] Care Team Providers Care Carpet Installer Helper Name Role Phone Manjit Gorman MD Primary Care Provider [phone] Olegario Juarez MD Unavailable [phone] Encounter Details Date Type Department Care Team (Latest Contact Info) Description 12/04/2022 Travel Social History Tobacco Use Types Packs/Day [...] Head, Neck & Respiratory 800 [facility], 2nd [place] [address] 10/17/2024 9:00 AM EST Appointment [facility] PET Scan 800 [place] [address] 10/17/2024 10:00 AM EST Appointment [facility] PET Scan 800 [place] [address] 10/17/2024 11:00 AM EST Office Visit Pav CC Head, Neck & Respiratory 800 [facility], 2nd [place] [address] Juan Pablo Cee MD [address] [facility] [address] [place] [address] 10/17/2024 1:00 PM EST Clinical Support Pav CC Head, Neck & Respiratory 800 [facility], 2nd [place] [address] 10/17/2024 2:20 PM EST Appointment PAV G Radiology [address] [place] [address] 10/20/2024 3:30 PM EST Office Visit Pav CC Head, Neck & Respiratory 800 [facility], [address]nd [place] [address] Germaine Alejandro MD [address] [place] [address] documented as of this encounter Visit Diagnoses Not on filedocumented in this encounter Additional Health Concerns Assessment Noted Time A fall risk assessment has been complete d for the patient 12/04/2022 12:22 PM EDT documented as of this encounter Care Teams Carpet Installer Helper Relationship Specialty Start Date End Date Manjit Gorman MD [address] [place], [place] [address] PCP - General 09/23/22 Olegario Juarez MD [address] [facility] [address] [place] [address] Consulting Physician Radiation Oncology 10/29/2207/05 documented as of this encounter
--- OUTSIDE RECORDS SUMMARY | 2024-07-27 06:55 | XMS_ITS | Encounter Summary ---
Author Organization [facility] Address [address] [phone] Care Team Providers Care Cinema Operator Name Role Phone Manjit Gorman MD Primary Care Provider [phone] Olegario Juarez MD Unavailable [phone] Encounter Details Date Type Department Care Team (Latest Contact Info) Description 12/01/2022 4:35 AM EDT - 12/01/2022 12:31 PM EDT Hospital Encounter [facility] Radiation [id number] [place] [address] Discharge Disposition: Still a Patient Social History [...] by mouth 3 (three) times a day. 69834 mL 2 11/17/2022 3 dexamethasone (Decadron) 4 [...] Pav CC Head, Neck & Respiratory 800 [facility], 2nd [place] [address] 10/17/2024 9:00 AM EST Appointment [facility] PET Scan 800 [place] [address] 10/17/2024 10:00 AM EST Appointment [facility] PET Scan 800 [place] [address] 10/17/2024 11:00 AM EST Office Visit Pav CC Head, Neck & Respiratory 800 [facility], 2nd [place] [address] Juan Pablo Cee MD [address] [facility] [address] [place] [address] 10/17/2024 1:00 PM EST Clinical Support Pav CC Head, Neck & Respiratory 800 [facility], 2nd [place] [address] 10/17/2024 2:20 PM EST Appointment PAV G Radiology [address] [place] [address] 10/20/2024 3:30 PM EST Office Visit Pav CC Head, Neck & Respiratory 800 [facility], 2nd [place] [address] Germaine Alejandro MD [address] [facility] [address] [place] [address] documented as of this encounter Visit Diagnoses Not on filedocumented in this encounter Additional Health Concerns Assessment Noted Time A fall risk assessment has been complete d for the patient 11/25/2022 12:52 PM EDT documented as of this encounter Care Teams Cinema Operator Relationship Specialty Start Date End Date Manjit Gorman MD [address] [place], [place] [phone] PCP - General 09/23/22 Olegario Juarez MD [address] [facility] [address] [place] [address] Consulting Physician Radiation Oncology 10/29/2207/05 documented as of this encounter
--- OUTSIDE RECORDS SUMMARY | 2024-07-27 06:55 | XMS_ITS | Encounter Summary ---
Author Organization [facility] Address [address] [place] [address] Care Team Providers Care Athletic Gear Custodian Name Role Phone Manjit Gorman MD Primary Care Provider [phone] Olegario Juarez MD Unavailable [phone] Reason for Visit * Reason Comments Labs Peripheral stick, ri ght arm Encounter Details Date Type Department Care Team (Latest Contact Info) Description 12/03/2022 1:15 PM EDT Clinical Support Pav CC Head, Neck & Respiratory 800 [facility], [address] [place] [address] Cancer of base of tongue (CMS/HCC) Social [...] Respiratory 800 [facility], [address]nd [place] [address] 10/17/2024 9:00 AM EST Appointment [facility] PET Scan 800 [place] [address] 10/17/2024 10:00 AM EST Appointment [facility] PET Scan 800 [place] [address] 10/17/2024 11:00 AM EST Office Visit Pav CC Head, Neck & Respiratory 800 [facility], [address] [place] [address] Juan Pablo Cee MD [address] [facility] [address] [place] [address] 10/17/2024 1:00 PM EST Clinical Support Pav CC Head, Neck & Respiratory 800 [facility], [address] [place] [address] 10/17/2024 2:20 PM EST Appointment PAV G Radiology [address] [place] [address] 10/20/2024 3:30 PM EST Office Visit Pav CC Head, Neck & Respiratory 800 [facility] [address] [place] [address] Germaine Alejandro MD [address] [facility] [address] [place] [address] documented as of this encounter Procedures Procedure Name Priority Date/Time Associated Diagnosis Comments CBC WITH AUTO DIFFERENTIAL Routine 12/03/2022 1:23 PM EDT Cancer of base of tongue (CMS/HCC) MAGNESIUM, PLASMA STAT 12/03/2022 1:2 3 PM EDT Cancer of base of tongue (CMS/HCC) COMPREHENSIVE METABOLIC PANEL, PLASMA Routine 12/03/2022 1:23 PM EDT Cancer of base of tongue (CMS/HCC) documented in this encounter Results * Magnesium (12/03/2022 1:23 PM EDT) Magnesium, Plasma 1.9 1.9 - 2.4 mg/dL 12/03/2022 2:03 PM EDT [facility] Blood Venous blood specimen / Unknown Venipuncture / Unknown 12/03/2022 1:23 PM EDT 12/03/2022 1:31 PM EDT Germaine Alejandro MD LAB BLOOD ORDERABLES Final R esult [facility] [address] [place] [address] * (ABNORMAL) Comprehensive metabolic panel (12/03/2022 1:23 PM EDT) Glucose, Plasma 95 74 - 99 mg/dL 12/03/2022 2:03 PM EDT [facility] BUN, Plasma 20 8 - 23 mg/dL 12/03/2022 2:03 PM EDT [facility] Creatinine, Plasma 1.16 0.80 - 1.30 mg/dL 12/03/2022 2:03 PM EDT [facility] BUN/Creatinine Ratio 17 12/03/2022 2:03 PM EDT [facility] Sodium, Plasma 138 136 - 145 mmol/L 12/03/2022 2:03 PM EDT [facility] Potassium, Plasma 5.0(H) 3.7 - 4.8 mmol/L 12/03/2022 2:03 PM EDT [facility] Chloride, Plasma 100 97 - 107 mmol/L 12/03/2022 2:03 PM EDT [facility] CO2, Plasma 29 22 - 29 mmol/L 12/03/2022 2:03 PM EDT [facility] Anion Gap 9 6 - 16 mmol/L 12/03/2022 2:03 PM EDT [facility] Total Calcium, Plasma 9.5 8.9 - 10.2 mg/dL 12/03/2022 2:03 PM EDT [facility] Total Protein 6.8 6.3 - 7.9 g/dL 12/03/2022 2:03 PM EDT [facility] Albumin, Plasma 4.2 3.5 - 5.2 g/dL 12/03/2022 2:03 PM EDT [facility] AST, Plasma 18(L) 19 - 48 U/L 12/03/2022 2:03 PM EDT [facility] ALT, Plasma 13 11 - 41 U/L 12/03/2022 2:03 PM EDT [facility] Alkaline Phosphatase, Plasma 69 40 - 115 U/L 12/03/2022 2:03 PM EDT [facility] Total Bilirubin, Plasma <0.2(L) 0.2 - 1.1 mg/dL 12/03/2022 2:03 PM EDT [facility] eGFRcr 66.9 mL/min/1.7 3m*2 12/03/2022 2:03 PM EDT [facility] Comment: Reported eGFRcr in mL/min/1.73m2 is based the CKD-EPI 202 equation that does not use a race coefficient. Effective 04/02/22 our laboratory changed the eGFR calculation to the CKD-EPI 2021 equation from the previously reported eGFR, based on the MDRD equation. ??For comparisons between the two equations, please see laboratory website: ??[email or web address] Blood Venous blood specimen / Unknown Venipuncture / Unknown 12/03/2022 1:23 PM EDT 12/03/2022 1:31 PM EDT us Germaine Alejandro MD LAB BLOOD ORDERABLES Final R esult [facility] [address] [place] [address] * (ABNORMAL) CBC and differential (12/03/2022 1:23 PM EDT) WBC Count 2.58(L) 3.70 - 10.30 10*3/uL LAB HEMATOLOGY METHOD 12/03/2022 1:41 PM EDT [facility] RBC Count 4.34(L) 4.60 - 6.10 10*6/uL LAB HEMATOLOGY METHOD 12/03/2022 1:41 PM EDT [facility] HGB 13.5(L) 13.7 - 17.5 g/dL LAB HEMATOLOGY METHOD 12/03/2022 1:41 PM EDT [facility] HCT 39.1(L) 40.0 - 51.0 % LAB HEMATOLOGY METHOD 12/03/2022 1:41 PM EDT [facility] Platelet Count 200 155 - 369 10*3/uL LAB HEMATOLOGY METHOD 12/03/2022 1:41 PM EDT [facility] MCV 90 79 - 98 fL LAB HEMATOLOGY METHOD 12/03/2022 1:41 PM EDT [facility] MCH 31.1 26.0 - 32.0 pg LAB HEMATOLOGY METHOD 12/03/2022 1:41 PM EDT [facility] MCHC 34.5 30.7 - 35.5 g/dL LAB HEMATOLOGY METHOD 12/03/2022 1:41 PM EDT [facility] RDW 13.1 11.5 - 14.5 % LAB HEMATOLOGY METHOD 12/03/2022 1:41 PM EDT [facility] MPV 8.7(L) 8.8 - 12.5 fL LAB HEMATOLOGY METHOD 12/03/2022 1:41 PM EDT [facility] nRBC 0.0 <=0.0 per 100 WBCs LAB HEMATOLOGY METHOD 12/03/2022 1:41 PM EDT [facility] Differential Type Automated LAB HEMATOLOGY METHOD 12/03/2022 1:41 PM EDT [facility] Neutrophils % 63.0 % LAB HEMATOLOGY METHOD 12/03/2022 1:41 PM EDT [facility] Lymphocytes % 12.0 % LAB HEMATOLOGY METHOD 12/03/2022 1:41 PM EDT [facility] Monocytes % 19.0 % LAB HEMATOLOGY METHOD 12/03/2022 1:41 PM EDT [facility] Eosinophils % 5.0 % LAB HEMATOLOGY METHOD 12/03/2022 1:41 PM EDT [facility] Basophils % 1.0 % LAB HEMATOLOGY METHOD 12/03/2022 1:41 PM EDT [facility] Immature Granulocytes % 0.0 % LAB HEMATOLOGY METHOD 12/03/2022 1:41 PM EDT [facility] Neutrophils Absolute 1.61 1.60 - 6.10 10*3/uL LAB HEMATOLOGY METHOD 12/03/2022 1:41 PM EDT [facility] Lymphocytes Absolute 0.32(L) 1.20 - 3.90 10*3/uL LAB HEMATOLOGY METHOD 12/03/2022 1:41 PM EDT [facility] Monocytes Absolute 0.50 0.30 - 0.90 10*3/uL LAB HEMATOLOGY METHOD 12/03/2022 1:41 PM EDT [facility] Eosinophils Absolute 0.12 0.00 - 0.50 10*3/uL LAB HEMATOLOGY METHOD 12/03/2022 1:41 PM EDT [facility] Basophils Absolute 0.02 0.00 - 0.10 10*3/uL LAB HEMATOLOGY METHOD 12/03/2022 1:41 PM EDT [facility] Immature Granulocytes Absolute 0.01 0.00 - 0.06 10*3/uL LAB HEMATOLOGY METHOD 12/03/2022 1:41 PM EDT [facility] Blood Venous blood specimen / Unknown Venipuncture / Unknown 12/03/2022 1:23 PM EDT 12/03/2022 1:31 PM EDT Narrative [facility] - 12/03/2022 1:41 PM EDT Therapeutic decision making should be based on absolute values, rather than percentages. 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
--- OUTSIDE RECORDS SUMMARY | 2024-07-27 06:55 | XMS_ITS | Encounter Summary ---
Author Organization [facility] Address [address] [place] [address] Care Team Providers Care Prototype Technician Name Role Phone Manjit Gorman MD Primary Care Provider [phone] Olegario Juarez MD Unavailable [phone] Encounter Details Date Type Department Care Team (Latest Contact Info) Description 12/03/2022 Travel Social History Tobacco Use Types Packs/Day [...] [facility], 2nd [place] [address] 10/17/2024 9:00 AM EST Appointment [facility] PET Scan [address] [place] [address] 10/17/2024 10:00 AM EST Appointment [facility] PET Scan 800 [place] [address] 10/17/2024 11:00 AM EST Office Visit [facility] Head[facility] Neck & Respiratory [address] [facility], 2nd [place] [address] Juan Pablo Cee MD [address] [facility] [address] [place] [address] 10/17/2024 1:00 PM EST Clinical Support Pav CC Head, Neck & Respiratory [address] [facility], 2nd [place] [address] 10/17/2024 2:20 PM EST Appointment [facility] Radiology [address] [place] [address] 10/20/2024 3:30 PM EST Office Visit Pav CC Head, Neck & Respiratory [address] [facility], 2nd [place] [address] Germaine Alejandro MD [address] [place] [address] documented as of this encounter Visit Diagnoses Not on filedocumented in this encounter Additional Health Concerns Assessment Noted Time A fall risk assessment has been complete d for the patient 12/02/2022 1:06 PM EDT documented as of this encounter Care Teams Prototype Technician Relationship Specialty Start Date End Date Manjit Gorman MD [address] [place], [place] [phone] PCP - General 09/23/22 Olegario Juarez MD [address] [facility] [address] [place] [address] Consulting Physician Radiation Oncology 10/29/2207/05 documented as of this encounter
--- OUTSIDE RECORDS SUMMARY | 2024-07-27 06:55 | XMS_ITS | Encounter Summary ---
Author Organization [facility] Address [address] [place] [address] Care Team Providers Care Poultry Trimmer Name Role Phone Manjit Gorman MD Primary Care Provider [phone] Olegario Juarez MD Unavailable [phone] Encounter Details Date Type Department Care Team (Latest Contact Info) Description 12/05/2022 Travel Social History Tobacco Use Types Packs/Day [...] Pav [facility] Head, Neck & Respiratory 800 [facility], 2nd [place] [address] 10/17/2024 9:00 AM EST Appointment [facility] PET Scan 800 [place] [address] 10/17/2024 10:00 AM EST Appointment [facility] PET Scan 800 [place] [address] 10/17/2024 11:00 AM EST Office Visit Pav CC Head, Neck & Respiratory 800 [facility], 2nd [place] [address] Juan Pablo Cee MD [address] [facility] [address] [place] [address] 10/17/2024 1:00 PM EST Clinical Support Pav CC Head, Neck & Respiratory 800 [facility], 2nd [place] [address] 10/17/2024 2:20 PM EST Appointment [facility] G Radiology [address] [place] [address] 10/20/2024 3:30 PM EST Office Visit Pav CC Head, Neck & Respiratory 800 [facility], [address] [place] [address] Germaine Alejandro MD [address] [place] [address] documented as of this encounter Visit Diagnoses Not on filedocumented in this encounter Additional Health Concerns Assessment Noted Time A fall risk assessment has been complete d for the patient 12/05/2022 9:27 AM EDT documented as of this encounter Care Teams Poultry Trimmer Relationship Specialty Start Date End Date Manjit Gorman MD [address] [place], [place] [phone] PCP - General 09/23/22 Olegaroi Juarez MD [address] [facility] [address] [place] [address] Consulting Physician Radiation Oncology 10/29/2207/05 documented as of this encounter
--- OUTSIDE RECORDS SUMMARY | 2024-07-27 06:55 | XMS_ITS | Encounter Summary ---
Author Organization [facility] Address [address] [place] [address] Care Team Providers Care Self Propelled Mining Machine Operator Name Role Phone Manjit Gorman MD Primary Care Provider [phone] Olegario Juarez MD Unavailable [phone] Encounter Details Date Type Department Care Team (Latest Contact Info) Description 12/08/2022 Travel Social History Tobacco Use Types Packs/Day [...] CC Head, Neck & Respiratory 800 [facility], 2nd [place] [address] 10/17/2024 9:00 AM EST Appointment [facility] PET Scan 800 [place] [address] 10/17/2024 10:00 AM EST Appointment [facility] PET Scan [address] [place] [address] 10/17/2024 11:00 AM EST Office Visit Pav CC Head, Neck & Respiratory 800 [facility], 2nd [place] [address] Juan Pablo Cee MD [address] [facility] [address] [place] [address] 10/17/2024 1:00 PM EST Clinical Support Pav CC Head, Neck & Respiratory 800 [facility], 2nd [place] [address] 10/17/2024 2:20 PM EST Appointment [facility] G Radiology [address] [place] [address] 10/20/2024 3:30 PM EST Office Visit Pav CC Head, Neck & Respiratory 800 [facility], [address]nd [place] [address] Germaine Alejandro MD [address] [place] [address] documented as of this encounter Visit Diagnoses Not on filedocumented in this encounter Additional Health Concerns Assessment Noted Time A fall risk assessment has been complete d for the patient 12/05/2022 9:27 AM EDT documented as of this encounter Care Teams Self Propelled Mining Machine Operator Relationship Specialty Start Date End Date Manjit Gorman MD [address] [place], [place] [phone] PCP - General 09/23/22 Olegario Juarez MD [address] [facility] [address] [place] [address] Consulting Physician Radiation Oncology 10/29/2207/05 documented as of this encounter
--- OUTSIDE RECORDS SUMMARY | 2024-07-27 06:55 | XMS_ITS | Encounter Summary ---
Author Organization [facility] Address [address] [place] [address] Care Team Providers Care Buggy Ladle Tender Name Role Phone Manjit Gorman MD Primary Care Provider [phone] Olegario Juarez MD Unavailable [phone] Encounter Details Date Type Department Care Team (Late Contact Info) Description 12/08/2022 Orders Only [facility] Radiation [id number] [place] [address] Radiation Oncology, Physician, [address], [place] [id number] Social History Tobacco Use Types Packs/Day Years [...] & Respiratory [address], [address]nd [place] [address] 10/17/2024 9:00 AM EST Appointment [facility] PET Scan 800 [place] [address] 10/17/2024 10:00 AM EST Appointment [facility] PET Scan 800 [place] [address] 10/17/2024 11:00 AM EST Office Visit Pav CC Head, Neck & Respiratory [address] [facility], 2nd [place] [address] Juan Pablo Cee MD [address] [facility] [address] [place] [address] 10/17/2024 1:00 PM EST Clinical Support Pav CC Head, Neck & Respiratory [address] [facility], 2nd [place] [address] 10/17/2024 2:20 PM EST Appointment [facility] G Radiology [address] [place] [address] 10/20/2024 3:30 PM EST Office Visit Pav CC Head, Neck & Respiratory [address] [facility], [address]nd [place] [address] Germaine Alejandro MD 800 [facility] [address] [place] [address] documented as of this encounter Procedures Procedure Name Priority Date/Time Associated Diagnosis Comments RAD ONC ARIA SESSION SUMMARY Routine 12/08/2022 12:54 PM EDT documented in this encounter Results * Rad Onc Aria Session Summary (12/08/2022 12:54 PM EDT) Course ID C1 ARIA RADIATION ONCOLOGY Course Intent Curative ARIA RADIATION ONCOLOGY Course Start Date 10/30/2022 3:11 PM ARIA RADIATION ONCOLOGY Course First Treatment Date 11/11/2022 11:30 AM ARIA RADIATION ONCOLOGY Course Last Treatment Date 12/08/2022 12:47 PM ARIA RADIATION ONCOLOGY Course Elapsed Days 27 ARIA RADIATION ONCOLOGY Reference Point ID RtOropharyn+Neck ARIA RADIATION ONCOLOGY Reference Point Dosage Given to Date 40 Gy ARIA RADIATION ONCOLOGY Reference Point Session Dosage Given 2 Gy ARIA RADIATION ONCOLOGY Plan ID RtOropharynx ARIA RADIATION ONCOLOGY Plan Name H&N ARIA RADIATION ONCOLOGY Plan Fractions Treated to Date 20 ARIA RADIATION ONCOLOGY Plan Total Fractions Prescribed 35 ARIA RADIATION ONCOLOGY Plan Prescribed Dose Per Fraction 2 Gy ARIA RADIATION ONCOLOGY Plan Total Prescribed Dose 7,000 CGy ARIA RADIATION ONCOLOGY Plan Primary Reference Point RtOropharyn+Neck ARIA RADIATION ONCOLOGY 12/08/2022 12:5 4 PM EDT Physician Radiation Oncology RADIATION ONCOLO GY ORDERABLES Final Result ARIA RADIATION ONCOLOGY documented in this encounter Visit Diagnoses Not on filedocumented in this encounter Additional Health Concerns Assessment Noted Time A fall risk assessment has been complete d for the patient 12/05/2022 9:27 AM EDT documented as of this encounter Care Teams Buggy Ladle Tender Relationship Specialty Start Date End Date Manjit Gorman MD [address] [place] [address] PCP - General 09/23/22 Olegario Juarez MD [address] [address] Consulting Physician Radiation Oncology 10/29/2207/05 documented as of this encounter
--- OUTSIDE RECORDS SUMMARY | 2024-07-27 06:55 | XMS_ITS | Encounter Summary ---
Author Organization [facility] Address [address] [place] [address] Care Team Providers Care Spanish Speaking Nanny Name Role Phone Manjit Gorman MD Primary Care Provider [phone] Olegario Juarez MD Unavailable [phone] Encounter Details Date Type Department Care Team (Late Contact Info) Description 12/04/2022 Orders Only [facility] Radiation [id number] [place] [address] Radiation Oncology, Physician, [address] [place], [place] [phone] Social History Tobacco Use Types Packs/Day Years [...] & Respiratory [address], [address]nd [place] [address] 10/17/2024 9:00 AM EST Appointment [facility] PET Scan 800 [place] [address] 10/17/2024 10:00 AM EST Appointment [facility] PET Scan 800 [place] [address] 10/17/2024 11:00 AM EST Office Visit Pav CC Head, Neck & Respiratory 800 [facility], 2nd [place] [address] Juan Pablo Cee MD [address] [facility] [address] [place] [address] 10/17/2024 1:00 PM EST Clinical Support Pav CC Head, Neck & Respiratory 800 [facility], [address]nd [place] [address] 10/17/2024 2:20 PM EST Appointment P[facility] G Radiology [address] [place] [address] 10/20/2024 3:30 PM EST Office Visit Pav CC Head, Neck & Respiratory 800 [facility], [address]nd [place] [address] Germaine Alejandro MD 800 [facility] [address] [place] [address] documented as of this encounter Procedures Procedure Name Priority Date/Time Associated Diagnosis Comments RAD ONC ARIA SESSION SUMMARY Routine 12/04/2022 1:34 PM EDT documented in this encounter Results * Rad Onc Aria Session Summary (12/04/2022 1:34 PM EDT) Course ID C1 ARIA RADIATION ONCOLOGY Course Intent Curative ARIA RADIATION ONCOLOGY Course Start Date 10/30/2022 3:11 PM ARIA RADIATION ONCOLOGY Course First Treatment Date 11/11/2022 11:30 AM ARIA RADIATION ONCOLOGY Course Last Treatment Date 12/04/2022 1:27 PM ARIA RADIATION ONCOLOGY Course Elapsed Days 23 ARIA RADIATION ONCOLOGY Reference Point ID RtOropharyn+Neck ARIA RADIATION ONCOLOGY Reference Point Dosage Given to Date 36 Gy ARIA RADIATION ONCOLOGY Reference Point Session Dosage Given 2 Gy ARIA RADIATION ONCOLOGY Plan ID RtOropharynx ARIA RADIATION ONCOLOGY Plan Name H&N ARIA RADIATION ONCOLOGY Plan Fractions Treated to Date 18 ARIA RADIATION ONCOLOGY Plan Total Fractions Prescribed 35 ARIA RADIATION ONCOLOGY Plan Prescribed Dose Per Fraction 2 Gy ARIA RADIATION ONCOLOGY Plan Total Prescribed Dose 7,000 CGy ARIA RADIATION ONCOLOGY Plan Primary Reference Point RtOropharyn+Neck ARIA RADIATION ONCOLOGY 12/04/2022 1:34 PM EDT Physician Radiation Oncology RADIATION ONCOLO GY ORDERABLES Final Result ARIA RADIATION ONCOLOGY documented in this encounter Visit Diagnoses Not on filedocumented in this encounter Additional Health Concerns Assessment Noted Time A fall risk assessment has been complete d for the patient 12/04/2022 12:22 PM EDT documented as of this encounter Care Teams Spanish Speaking Nanny Relationship Specialty Start Date End Date Manjit Gorman MD [address] [place] [address] PCP - General 09/23/22 Olegario Juarez MD [address] [address] Consulting Physician Radiation Oncology 10/29/2207/05 documented as of this encounter
--- OUTSIDE RECORDS SUMMARY | 2024-07-27 06:55 | XMS_ITS | Encounter Summary ---
Author Organization [facility] Address [address] [place] [id number] Care Team Providers Care Exhibition Specialist Name Role Phone Manjit Gorman MD Primary Care Provider [phone] Olegario Juarez MD Unavailable [phone] Encounter Details Date Type Department Care Team (Latest Contact Info) Description 12/02/2022 12:45 PM EDT - 12/02/2022 11:59 PM EDT Hospital Encounter [facility] Radiation [id number] [place] [address] Discharge Disposition: Still a Patient Social History [...] by mouth 3 (three) times a day. [address]1972 mL 2 11/17/2022 3 dexamethasone (Decadron) 4 [...] Pav CC Head, Neck & Respiratory 800 [facility], 2nd [place] [address] 10/17/2024 9:00 AM EST Appointment [facility] PET Scan 800 [place] [address] 10/17/2024 10:00 AM EST Appointment [facility] PET Scan 800 [place] [address] 10/17/2024 11:00 AM EST Office Visit Pav CC Head, Neck & Respiratory 800 [facility], 2nd [place] [address] Juan Pablo Cee MD [address] [facility] [address] [place] [address] 10/17/2024 1:00 PM EST Clinical Support Pav CC Head, Neck & Respiratory 800 [facility], 2nd [place] [address] 10/17/2024 2:20 PM EST Appointment PAV G Radiology [address] [place] [address] 10/20/2024 3:30 PM EST Office Visit Pav CC Head, Neck & Respiratory 800 [facility], 2nd [place] [address] Germaine Alejandro MD [address] [facility] [address] [place] [address] documented as of this encounter Visit Diagnoses Not on filedocumented in this encounter Additional Health Concerns Assessment Noted Time A fall risk assessment has been complete d for the patient 12/02/2022 1:06 PM EDT documented as of this encounter Care Teams Exhibition Specialist Relationship Specialty Start Date End Date Manjit Gorman MD [address] [place], [place] [phone] PCP - General 09/23/22 Olegario Juarez MD 800 [facility] [address] [place] [address] Consulting Physician Radiation Oncology 10/29/2207/05 documented as of this encounter
--- OUTSIDE RECORDS SUMMARY | 2024-07-27 06:55 | XMS_ITS | Encounter Summary ---
Author Organization [facility] Address [address] [id number] Care Team Providers Care Apartment Leasing Agent Name Role Phone Manjit Gorman MD Primary Care Provider [phone] Olegario Juarez MD Unavailable [phone] Encounter Details Date Type Department Care Team (Latest Contact Info) Description 12/08/2022 12:34 PM EDT - 12/08/2022 11:59 PM EDT Hospital Encounter P[facility] CC Radiation [id number] [place] [address] Discharge Disposition: Still a Patient Social History [...] by mouth 3 (three) times a day. 44999 mL 2 11/17/2022 3 dexamethasone (Decadron) 4 [...] Respiratory 800 [facility], 2nd [place] [address] 10/17/2024 9:00 AM EST Appointment [facility] PET Scan 800 [place] [address] 10/17/2024 10:00 AM EST Appointment [facility] PET Scan 800 [place] [address] 10/17/2024 11:00 AM EST Office Visit Pav CC Head, Neck & Respiratory 800 [facility], 2nd [place] [address] Juan Pablo Cee MD [address] [facility] [address] [place] [address] 10/17/2024 1:00 PM EST Clinical Support Pav CC Head, Neck & Respiratory 800 [facility], 2nd [place] [address] 10/17/2024 2:20 PM EST Appointment PAV G Radiology [address] [place] [address] 10/20/2024 3:30 PM EST Office Visit Pav CC Head, Neck & Respiratory 800 [facility], 2nd [place] [address] Germaine Alejandro MD 800 [facility] [address] [place] [address] documented as of this encounter Visit Diagnoses Not on filedocumented in this encounter Additional Health Concerns Assessment Noted Time A fall risk assessment has been complete d for the patient 12/05/2022 9:27 AM EDT documented as of this encounter Care Teams Apartment Leasing Agent Relationship Specialty Start Date End Date Manjit Gorman MD [address] [place], [place] [phone] PCP - General 09/23/22 Olegario Juarez MD 800 [facility] [address] [place] [address] Consulting Physician Radiation Oncology 10/29/2207/05 documented as of this encounter
--- OUTSIDE RECORDS SUMMARY | 2024-07-27 06:55 | XMS_ITS | Encounter Summary ---
Author Organization [facility] Address [address] [id number] Care Team Providers Care Central Supply Tech Name Role Phone Manjit Gorman MD Primary Care Provider [phone] Olegario Juarez MD Unavailable [phone] Encounter Details Date Type Department Care Team (Latest Contact Info) Description 12/01/2022 12:32 PM EDT - 12/01/2022 11:59 PM EDT Hospital Encounter P[facility] CC Radiation [id number] [place] [address] Discharge Disposition: Still a Patient Social History [...] by mouth 3 (three) times a day. 87694 mL 2 11/17/2022 3 dexamethasone (Decadron) 4 [...] Respiratory 800 [facility], 2nd [place] [address] 10/17/2024 9:00 AM EST Appointment [facility] PET Scan 800 [place] [address] 10/17/2024 10:00 AM EST Appointment [facility] PET Scan 800 [place] [address] 10/17/2024 11:00 AM EST Office Visit Pav CC Head, Neck & Respiratory 800 [facility], 2nd [place] [address] Juan Pablo Cee MD [address] [facility] [address] [place] [address] 10/17/2024 1:00 PM EST Clinical Support Pav CC Head, Neck & Respiratory 800 [facility], 2nd [place] [address] 10/17/2024 2:20 PM EST Appointment PAV G Radiology [address] [place] [address] 10/20/2024 3:30 PM EST Office Visit Pav CC Head, Neck & Respiratory [address] [facility], 2nd [place] [address] Germaine Alejandro MD 800 [facility] [address] [place] [address] documented as of this encounter Visit Diagnoses Not on filedocumented in this encounter Additional Health Concerns Assessment Noted Time A fall risk assessment has been complete d for the patient 11/25/2022 12:52 PM EDT documented as of this encounter Care Teams Central Supply Tech Relationship Specialty Start Date End Date Manjit Gorman MD [address] [place], [place] [phone] PCP - General 09/23/22 Olegario Juarez MD 800 [facility] [address] [place] [address] Consulting Physician Radiation Oncology 10/29/2207/05 documented as of this encounter
--- OUTSIDE RECORDS SUMMARY | 2024-07-27 06:55 | XMS_ITS | Encounter Summary ---
Author Organization [facility] Address [address] [id number] Care Team Providers Care Hospitality Specialist Name Role Phone Manjit Gorman MD Primary Care Provider [phone] Olegario Juarez MD Unavailable [phone] Reason for Visit * Reason Comments OTV Encounter Details Date Type Department Care Team (Latest Contact Info) Description 12/09/2022 12:55 PM EDT - 12/09/2022 11:59 PM EDT Hospital Encounter [facility] Radiation [address] 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 97646 mL 2 11/17/2022 3 dexamethasone (Decadron) 4 [...] Progress Notes - Jose Meade MD - 12/09/2022 1:00 PM EDT Patient Name: Erick Sierra Date of : 1950 72 y.o. 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 Smoking Status Never BSA 2.01 m?? Physician Notes: [x] Reviewed chart and dosimetry - Current Dose - *see signed printed weekly treatment record [x] Reviewed treatment setup - Anticipated Dose - *see signed printed weekly treatment record [x] Reviewed port films or images - Examination of patient for evaluation and progress of treatment Asymptomatic Subjective Mr. Sierra presents today for his status check after completing fractions. He reports concern about secretions which have been increasing in volume. He also reports hiccups and moderate throat discomfort discomfort which is controlled with pain medications. He continues to use mouthwash #1 regularly, and we have encouraged his continued use to manage these secretions. Exam shows grade 1 mucositis present in the soft palate region with erythema in the posterior oropharynx. No active bleeding or thrush were noted, dentition appears well. Overlying skin shows grade 1erythema without desquamation. Neck is soft and supple to palpation without LAD. Assessment/Plan - We will continue RT as planned - Continue TOMASA Forte#1 Radiation Treatments Active Plans H&N [RtOropharynx] Most recent treatment: Dose planned: 200 cGy (fraction 21 on 12/09/2022) Total: Dose planned: 7,000 cGy (35 fractions) Elapsed Days: 28 Reference Points RtOropharyn+Neck Most recent treatment: Dose given: 200 cGy (on 12/09/2022) Total: Dose given: 4,200 cGy Elapsed Days: 28 Resident signature: MD NURA Lam [facility] RADIATION [address] [facility] [address] Cosigned by Bossman Moscoso MD at 12/09/2022 5:05 PM EDT Associated attestation - Bossman Moscoso MD - 12/09/2022 5:05 PM EDT I saw and evaluated the patient with the resident/fellow. I discussed the case with the resident/fellow and agree with the findings and plan as documented. documented in this encounter Plan of Treatment Upcoming Encounters Date Type Department Care Team (Late st Contact Info) Description 10/17/2024 8:00 AM EST Clinical Support [facility] Head, Neck & Respiratory [address] [address] 10/17/2024 9:00 AM EST Appointment [facility] PET Scan 800 [place] [address] 10/17/2024 10:00 AM EST Appointment [facility] PET Scan [address] [place] [address] 10/17/2024 11:00 AM EST Office Visit [facility] Head[facility] Neck & Respiratory [address] [address] Juan Pablo Cee MD [address] [facility] [address] [place] [address] 10/17/2024 1:00 PM EST Clinical Support [facility] Head, Neck & Respiratory [address] [place] [address] 10/17/2024 2:20 PM EST Appointment [facility] G Radiology [address] [place] [address] 10/20/2024 3:30 PM EST Office Visit [facility] Head, Neck & Respiratory [address] [facility], [address]nd [place] [address] Germaine Alejandro MD [address] [facility] [address] [place] [address] documented as of this encounter Visit Diagnoses Diagnosis Cancer of base of tongue (CMS/HCC)- Primary Malignant neoplasm of base of tongue Squamous cell carcinoma of cheek Encounter for antineoplastic radiation therapy documented in this encounter Additional Health Concerns Assessment Noted Time A fall risk assessment has been complete d for the patient 12/09/2022 12:57 PM EDT documented as of this encounter Care Teams Hospitality Specialist Relationship Specialty Start Date End Date Manjit Gorman MD [address] [place] [address] PCP - General 09/23/22 Olegario Juarez MD [address] [facility] [address] [place] [address] Consulting Physician Radiation Oncology 10/29/2207/05 documented as of this encounter
--- OUTSIDE RECORDS SUMMARY | 2024-07-27 06:55 | XMS_ITS | Encounter Summary ---
Author Organization [facility] Address [address] [place] [address] Care Team Providers Care Retail Reset Merchandiser Name Role Phone Manjit Gorman MD Primary Care Provider [phone] Olegario Juarez MD Unavailable [phone] Encounter Details Date Type Department Care Team (Late Contact Info) Description 12/01/2022 Orders Only [facility] Radiation [id number] [place] [address] Radiation Oncology, Physician, [address] [place], [place] [id number] Social History Tobacco Use Types Packs/Day Years [...] & Respiratory [address] [place] [address] 10/17/2024 9:00 AM EST Appointment [facility] PET Scan 800 [place] [address] 10/17/2024 10:00 AM EST Appointment [facility] PET Scan 800 [place] [address] 10/17/2024 11:00 AM EST Office Visit [facility] Head, Neck & Respiratory [address] [facility], 2nd [place] [address] Juan Pablo Cee MD [address] [facility] [address] [place] [address] 10/17/2024 1:00 PM EST Clinical Support [facility] Head, Neck & Respiratory [address] [facility], [address] [place] [address] 10/17/2024 2:20 PM EST Appointment [facility] G Radiology [address] [place] [address] 10/20/2024 3:30 PM EST Office Visit [facility] Head, Neck & Respiratory [address] [facility], [address] [place] [address] Germaine Alejandro MD 800 [facility] [address] [place] [address] documented as of this encounter Procedures Procedure Name Priority Date/Time Associated Diagnosis Comments RAD ONC ARIA SESSION SUMMARY Routine 12/01/2022 12:56 PM EDT documented in this encounter Results * Rad Onc Aria Session Summary (12/01/2022 12:56 PM EDT) Course ID C1 ARIA RADIATION ONCOLOGY Course Intent Curative ARIA RADIATION ONCOLOGY Course Start Date 10/30/2022 3:11 PM ARIA RADIATION ONCOLOGY Course First Treatment Date 11/11/2022 11:30 AM ARIA RADIATION ONCOLOGY Course Last Treatment Date 12/01/2022 12:49 PM ARIA RADIATION ONCOLOGY Course Elapsed Days 20 ARIA RADIATION ONCOLOGY Reference Point ID RtOropharyn+Neck ARIA RADIATION ONCOLOGY Reference Point Dosage Given to Date 30 Gy ARIA RADIATION ONCOLOGY Reference Point Session Dosage Given 2 Gy ARIA RADIATION ONCOLOGY Plan ID RtOropharynx ARIA RADIATION ONCOLOGY Plan Name H&N ARIA RADIATION ONCOLOGY Plan Fractions Treated to Date 15 ARIA RADIATION ONCOLOGY Plan Total Fractions Prescribed 35 ARIA RADIATION ONCOLOGY Plan Prescribed Dose Per Fraction 2 Gy ARIA RADIATION ONCOLOGY Plan Total Prescribed Dose 7,000 CGy ARIA RADIATION ONCOLOGY Plan Primary Reference Point RtOropharyn+Neck ARIA RADIATION ONCOLOGY 12/01/2022 12:5 6 PM EDT Physician Radiation Oncology RADIATION ONCOLO GY ORDERABLES Final Result ARIA RADIATION ONCOLOGY documented in this encounter Visit Diagnoses Not on filedocumented in this encounter Additional Health Concerns Assessment Noted Time A fall risk assessment has been complete d for the patient 11/25/2022 12:52 PM EDT documented as of this encounter Care Teams Retail Reset Merchandiser Relationship Specialty Start Date End Date Manjit Gorman MD [address] [place] [address] PCP - General 09/23/22 Olegario Juarez MD [address] [address] Consulting Physician Radiation Oncology 10/29/2207/05 documented as of this encounter
--- OUTSIDE RECORDS SUMMARY | 2024-07-27 06:55 | XMS_ITS | Encounter Summary ---
Author Organization [facility] Address [address] [phone] Care Team Providers Care Water Treatment Plant Repairer Name Role Phone Manjit Gorman MD Primary Care Provider Olegario Juarez MD Unavailable Encounter Details Date Type Department Care Team (Latest Contact Info) Description 12/09/2022 12:36 PM EDT - 12/09/2022 12:54 PM EDT Hospital Encounter [facility] Radiation [id number] [place] [address] Discharge Disposition: Still a Patient Social History [...] by mouth 3 (three) times a day. 62423 mL 2 11/17/2022 3 dexamethasone (Decadron) 4 [...] Respiratory [address] [facility], [address] [place] [address] 10/17/2024 9:00 AM EST Appointment [facility] PET Scan 800 [place] [address] 10/17/2024 10:00 AM EST Appointment [facility] PET Scan 800 [place] [address] 10/17/2024 11:00 AM EST Office Visit [facility] Head, Neck & Respiratory [address] [facility], [address] [place] [phone] Juan Pablo Cee MD [address] [facility] [address] [place] [address] 10/17/2024 1:00 PM EST Clinical Support [facility] Head, Neck & Respiratory [address] [facility], [address] [place] [address] 10/17/2024 2:20 PM EST Appointment [facility] G Radiology [address] [place] [address] 10/20/2024 3:30 PM EST Office Visit [facility] Head, Neck & Respiratory [address] [facility], [address] [place] [address] Germaine Alejandro MD [address] [facility] [address] [place] [address] documented as of this encounter Visit Diagnoses Not on filedocumented in this encounter Additional Health Concerns Assessment Noted Time A fall risk assessment has been complete d for the patient 12/09/2022 12:57 PM EDT documented as of this encounter Care Teams Water Treatment Plant Repairer Relationship Specialty Start Date End Date Manjit Gorman MD [address] [place], [place] [phone] PCP - General 09/23/22 Olegario Juarez MD [address] [facility] [address] [place] [address] Consulting Physician Radiation Oncology 10/29/2207/05 documented as of this encounter
--- OUTSIDE RECORDS SUMMARY | 2024-07-27 06:55 | XMS_ITS | Encounter Summary ---
Author Organization [facility] Address [address] [id number] Care Team Providers Care Child And Family Services Specialist Name Role Phone Manjit Gorman MD Primary Care Provider [phone] Olegario Juarez MD Unavailable [phone] Reason for Visit * Reason Comments Follow-up * Episode Based Medications (Routine) - Closed Specialty Diagnoses / Procedures Referred By Contac t Referred To Contact Diagnoses Cancer of base of tongue (CMS/HCC) Germaine Alejandro MD [address] [facility] Jyothi Junior [address] [address] Phone: tel: fax: [facility] [address] [place] [address] Phone: tel: Referral ID Status Reason Start Date Expiration Date Visits Re quested Visits Authorized [id number] Closed 11/10/2022 05/11/2024 1 9 Encounter Details Date Type Department Care Team (Late st Contact Info) Description 12/04/2022 12:30 PM EDT Office Visit [facility] Head[facility] Neck & Respiratory 800 [facility], 2nd [place] [address] Germaine Alejandro MD 800 [facility] Jyothi Junior [address] [address] 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); Neoplasm related pain Social History Tobacco Use [...] Sign Reading Time Taken Comments Blood Pressure 136/72 12/04/2022 12:23 PM EDT Pulse 72 12/04/2022 12:23 PM EDT Temperature 36.7 ??C (98 ??F) 12/04/2022 12: 23 PM EDT Respiratory Rate 16 12/04/2022 12:2 3 PM EDT Oxygen Saturation 99% 12/04/2022 12: 23 PM EDT Inhaled Oxygen Concentration - - Weight 80.2 kg (176 lb 11.2 oz) 023 12:23 PM EDT Height 188 cm (6' 2.02 ) 12/04/2022 12: 23 PM EDT Body Mass Index 22.68 12/04/2022 12:23 PM EDT documented in this encounter Miscellaneous Notes * Progress Notes - Alec Arthur MD - 12/04/2022 12:30 PM EDT MEDICAL ONCOLOGY FOLLOW-UP NOTE Patient Information Patient Name: Erick Sierra Date of : 1950 REFERRING PHYSICIAN: Manjit Gorman MD Encounter Date: 12/04/2022 Treatment Diagnosis: Cancer Staging Cancer of base [...] Clinical: Stage I. he returns for followup and for reassessment during current therapy. 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 CT Chest 10/21/22 showed no metastatic disease. [...] 100 mg/m2 = 208 mg, Intravenous, Once, 1 of 3 cycles Administration: 208 mg (11/14/2022) aprepitant (Cinvanti) 130 MG/18ML IV 130 mg, 130 mg, Intravenous, Once, 1 of 3 cycles Administration: 130 mg (11/14/2022) 11/17/2022 - Radiation Therapy The patient saw Olegario Juarez MD for radiation treatment. This is the current list of radiation treatment: Radiation Treatments No radiation treatments to show. (Treatments may have been administered in another system.) Currently, he denies fever, or chills, dysuria, hematuria, constipation, melena, diarrhea, hematochezia, hematemesis, abdominal pain, shortness of breath, cough, sputum production, mental status changes, neuropathy, chest pain, palpitations, rash, itching, dysphagia, voice changes, hearing loss, visual changes, stridor. He feels well; he has slime and mucus in his mouth that bothers him Pertinent history is reviewed with family member due to the patient's medical condition. Pertinent outside records are reviewed today from recent hospitalization/visit to ER/to outside ER/outside my practice Problem List and Medications Reviewed in this encounter by me personally No questionnaires on file. Objective Performance Status 1: Restricted in physically strenuous activity but ambulatory and able to do light work KPS: 90 - Able to carry on normal activity; minor signs or symptoms of disease. Blood pressure 136/72, pulse 72, temperature 36.7 ??C (98 ??F), temperature source Oral, resp. rate16, height 1.88 m (6' 2.02 ), weight 80.2 kg (176 lb 11.2 oz), SpO2 99 %. EXAM Physical Exam Constitutional: General: He is not in acute distress. Appearance: He is ill-appearing. HENT: Head: Normocephalic and atraumatic. Right Ear: External ear normal. Left Ear: External ear normal. Nose: Nose normal. Eyes: Extraocular Movements: Extraocular movements intact. Pupils: [...] Left lower leg: No edema. Lymphadenopathy: Cervical: Cervical adenopathy (right cervical nodes) present. Skin: General: Skin is warm and dry. Findings: No erythema or rash. Neurological: Mental Status: He is alert. Cranial Nerves: No cranial nerve deficit or dysarthria. Sensory: No sensory deficit. Gait: Gait normal. Psychiatric: Mood and Affect: Mood normal. Behavior: Behavior normal. LABORATORIES STUDIES: reviewed by me personally today to monitor for cancer related drug toxicity and treatment related senior care toxicity CBC WBC 2.58 Hgb 13.5 PLT 200 HCT 39.1 Lab Results Component Value Date NEUTROABS 1.61 12/03/2022 BMPL Na 138 Cl 100 BUN 20 Gluc 95 K 5.0 Co2 29 Creat 1.16 LIVER FUNCTION TESTING Tot Prot 6.8 AST 18 Tot bili <0.2 ALT 13 Alkphos 69 Ca 9.5 Mg 1.9 Lab Results Component Value Date TSH 1.45 [...] ability to tolerate systemic cancer treatment - RTC for third and final dose of cisplatin chemo in 3W (clinic 12/25, cisplatin 12/26) 2. Pain related to neoplasm: - Prescribed gabapentin for initial Rx for throat pain> he is not requiring to take it - If the patient continues to experience pain directly related to their neoplasm requiring monitoring and adjustments in dosage and frequency of narcotic and adjunctive medications by me. RL report reviewed and will be reviewed periodically. 3. Anticipated Chemotherapy Induced Nausea: - I prescribed ondansetron, compazine and will monitor for nausea and vomiting. 4. Increased mucus production - Encouraged to keep using salt and soda mouthwash Orders Placed This Encounter Procedures CBC and differential Comprehensive metabolic panel Magnesium I reviewed liver and renal function as well as bone marrow function in relationship to this patient's ability to tolerate systemic cancer treatment (and adjusted dosing and schedule based on their individual liver, renal and bone marrow function). I have personally calculated and ordered chemotherapy. I updated the plan of care. This treatment will require ongoing monitoring of toxicity by me, due to the risks of severe side effects from the therapy listed above. The selection, dosing and administration of anti-cancer agents and the management of associated toxicities requires complex medical decision making. Modifications of drug dose and schedule as well as the initiation of supportive care interventions are often necessary because of expected toxicities. This varies individually based on patient tolerability, prior treatments and comorbidities. The optimal delivery of anticancer agents requires a healthcare delivery team experienced in the use of anticancer agents and the management of associated toxicities in patients with cancer. I discussed with the patient the care setting of the Medical Oncology Clinic. Discussed my role as a fellow physician, providing care under the supervision of an attending physician board certified in the field of medical oncology. We discussed the larger role of the subspecialty care providers at [facility] and that we would be in consultation with experts in the patient's disease throughout all phases of treatment. Patient voiced understanding and agreement. The case and plan was discussed with attending Dr Javon Arthur MD Hematology and Oncology Fellow PGY5 Pager [phone] [facility] [address] [place] [phone] Cosigned by Germaine Alejandro MD at 12/04/2022 1:41 PM EDT Associated attestation - Germaine Alejandro MD - 12/04/2022 1:41 PM EDT I saw and evaluated the patient with the resident/fellow. I discussed the case with the resident/fellow and agree with the findings and plan as documented. * Progress Notes - John Giraldo, PharmD - 12/04/2022 12:30 PM EDT Pharmacy Hematology/Oncology Treatment Follow-Up Note Erick Sierra is a 72 y.o. male with Cancer Staging Cancer of base of tongue (CMS/HCC) Staging form: Pharynx - HPV-Mediated Oropharynx, AJCC 8th Edition - Clinical stage from 10/29/2022: Stage I (cT2, cN1, cM0, p16+) - Signed by Germaine Alejandro MD on 11/10/2022 . Treatment Plan reviewed for Cisplatin Q21 days regimen. [x] Follow-Up Clinical Review for Cycle 2 Interval History: 12/04/22 - patient doing well without significant N/V and no hearing changes, will continue same Dosing Wt: 83.7 kg Dosing Ht: 185 cm DosingBSA: 2.08 m2 Recent Labs: Lab Results Component Value Date WBC 2.58 (L) 12/03/2022 HGB 13.5 (L) 12/03/2022 HCT 39.1 (L) 12/03/2022 MCV 90 12/03/2022 PLT 200 12/03/2022 Lab Results Component Value Date GLUCOSE 95 12/03/2022 CALCIUM 9.5 12/03/2022 NA 138 12/03/2022 K 5.0 (H) 12/03/2022 CO2 29 12/03/2022 CL 100 12/03/2022 BUN 20 12/03/2022 CREATININE 1.16 12/03/2022 Lab Results Component Value Date ALT 13 12/03/2022 AST 18 (L) 12/03/2022 ALKPHOS 69 12/03/2022 BILITOT <0.2 (L) 12/03/2022 Lab Results Component Value Date NEUTROABS 1.61 12/03/2022 Lab Results Component Value Date MG 1.9 12/03/2022 Lab Results Component Value Date TSH 1.45 11/10/2022 No results found for: URINEPRO Vitals: Visit Vitals BP 136/72 (BP Location: Right arm, Patient Position: Sitting, BP Cuff Size: Adult) Pulse 72 Temp 36.7 ??C (98 ??F) (Oral) Resp 16 Other Relevant Monitoring: Study Patient: no Treatment Plan: Cisplatin 100 mg/m2 (208 mg) IV D1 Every 21 days [x] No dose adjustments made Current Treatment Plan History: HD cisplatin + XRT C1: 11/14/22 C2: 12/05/22 Prior Treatment History: N/a Assessment/Plan: Patient will return to clinic in 3 weeks. Will follow-up at that time. Pharmacist Attestation: John Giraldo, Naren 12/04/2022 2:07 PM documented in this encounter Plan of Treatment Upcoming Encounters Date Type Department Care Team (Late st Contact Info) Description 10/17/2024 8:00 AM EST Clinical Support [facility] Res[facility] [address] [phone] 10/17/2024 9:00 AM EST Appointment [facility] PET [facility] [address] [place] [phone] 10/17/2024 10:00 AM EST Appointment [facility] PET Scan [address] [place] [phone] 10/17/2024 11:00 AM EST Office Visit [facility] Res[facility] [address] [phone] Juan Pablo Cee MD [address] [facility] [address] [place] [address] 10/17/2024 1:00 PM EST Clinical Support [facility] Neck [facility] Res[facility] [address] [phone] 10/17/2024 2:20 PM EST Appointment [facility] [address] [place] [phone] 10/20/2024 3:30 PM EST Office Visit [facility] Neck [facility] Respiratory [address] [phone] Germaine Alejandro MD 800 [facility] Jyoth[address] [place] [phone] documented as of this encounter Results * (ABNORMAL) Magnesium (12/24/2022 1:36 PM EDT) Magnesium, Plasma 1.8(L) 1.9 - 2.4 mg/dL 12/24/2022 2:25 PM EDT [facility] Blood Venous blood specimen / Unknown Venipuncture / Unknown 12/24/2022 1:36 PM EDT 12/24/2022 1:52 PM EDT Germaine Alejandro MD LAB BLOOD ORDERABLES Final R esult [facility] [address] [phone] * (ABNORMAL) Comprehensive metabolic panel (12/24/2022 1:36 PM EDT) [facility] Glucose, Plasma 100(H) 74 - 99 mg/dL 12/24/2022 2:25 PM EDT [facility] BUN, Plasma 17 8 - 23 mg/dL 12/24/2022 2:25 PM EDT [facility] Creatinine, Plasma 1.18 0.80 - 1.30 mg/dL 12/24/2022 2:25 PM EDT [facility] BUN/Creatinine Ratio 14 12/24/2022 2:25 PM EDT [facility] Sodium, Plasma 137 136 - 145 mmol/L 12/24/2022 2:25 PM EDT [facility] Potassium, Plasma 5.6(H) 3.7 - 4.8 mmol/L 12/24/2022 2:25 PM EDT [facility] Chloride, Plasma 102 97 - 107 mmol/L 12/24/2022 2:25 PM EDT [facility] CO2, Plasma 24 22 - 29 mmol/L 12/24/2022 2:25 PM EDT [facility] Anion Gap 11 6 - 16 mmol/L 12/24/2022 2:25 PM EDT [facility] Total Calcium, Plasma 9.5 8.9 - 10.2 mg/dL 12/24/2022 2:25 PM EDT [facility] Total Protein 6.4 6.3 - 7.9 g/dL 12/24/2022 2:25 PM EDT [facility] Albumin, Plasma 4.0 3.5 - 5.2 g/dL 12/24/2022 2:25 PM EDT [facility] AST, Plasma 23 19 - 48 U/L 12/24/2022 2:25 PM EDT [facility] ALT, Plasma 16 11 - 41 U/L 12/24/2022 2:25 PM EDT [facility] Alkaline Phosphatase, Plasma 69 40 - 115 U/L 12/24/2022 2:25 PM EDT [facility] Total Bilirubin, Plasma 0.3 0.2 - 1.1 mg/dL 12/24/2022 2:25 PM EDT [facility] eGFRcr 65.6 mL/min/1.7 3m*2 12/24/2022 2:25 PM EDT [facility] Comment: Reported eGFRcr in mL/min/1.73m2 is based the CKD-EPI 2020 equation that does not use a race coefficient. Effective 04/02/22 our laboratory changed the eGFR calculation to the CKD-EPI 202 equation from the previously reported eGFR, based on the MDRD equation. ??For comparisons between the two equations, please see laboratory website: ??[email or web address]/[facility] Blood Venous blood specimen / Unknown Venipuncture / Unknown 12/24/2022 1:36 PM EDT 12/24/2022 1:52 PM EDT us Germaine Alejandro MD LAB BLOOD ORDERABLES Final R esult [facility] [address] [place] [address] * (ABNORMAL) CBC and differential (12/24/2022 1:36 PM EDT) WBC Count 2.33(L) 3.70 - 10.30 10*3/uL LAB HEMATOLOGY METHOD 12/24/2022 3:08 PM EDT [facility] RBC Count 4.07(L) 4.60 - 6.10 10*6/uL LAB HEMATOLOGY METHOD 12/24/2022 3:08 PM EDT [facility] HGB 12.5(L) 13.7 - 17.5 g/dL LAB HEMATOLOGY METHOD 12/24/2022 3:08 PM EDT [facility] HCT 36.3(L) 40.0 - 51.0 % LAB HEMATOLOGY METHOD 12/24/2022 3:08 PM EDT [facility] Platelet Count 216 155 - 369 10*3/uL LAB HEMATOLOGY METHOD 12/24/2022 3:08 PM EDT [facility] MCV 89 79 - 98 fL LAB HEMATOLOGY METHOD 12/24/2022 3:08 PM EDT [facility] MCH 30.7 26.0 - 32.0 pg LAB HEMATOLOGY METHOD 12/24/2022 3:08 PM EDT [facility] MCHC 34.4 30.7 - 35.5 g/dL LAB HEMATOLOGY METHOD 12/24/2022 3:08 PM EDT [facility] RDW 14.1 11.5 - 14.5 % LAB HEMATOLOGY METHOD 12/24/2022 3:08 PM EDT [facility] MPV 8.7(L) 8.8 - 12.5 fL LAB HEMATOLOGY METHOD 12/24/2022 3:08 PM EDT [facility] nRBC 0.0 <=0.0 per 100 WBCs LAB HEMATOLOGY METHOD 12/24/2022 3:08 PM EDT [facility] Differential Type Automated LAB HEMATOLOGY METHOD 12/24/2022 3:08 PM EDT [facility] Neutrophils % 64.0 % LAB HEMATOLOGY METHOD 12/24/2022 3:08 PM EDT [facility] Lymphocytes % 13.0 % LAB HEMATOLOGY METHOD 12/24/2022 3:08 PM EDT [facility] Monocytes % 22.0 % LAB HEMATOLOGY METHOD 12/24/2022 3:08 PM EDT [facility] Eosinophils % 0.0 % LAB HEMATOLOGY METHOD 12/24/2022 3:08 PM EDT [facility] Basophils % 1.0 % LAB HEMATOLOGY METHOD 12/24/2022 3:08 PM EDT [facility] Immature Granulocytes % 0.0 % LAB HEMATOLOGY METHOD 12/24/2022 3:08 PM EDT [facility] Neutrophils Absolute 1.48(L) 1.60 - 6.10 10*3/uL LAB HEMATOLOGY METHOD 12/24/2022 3:08 PM EDT [facility] Lymphocytes Absolute 0.30(L) 1.20 - 3.90 10*3/uL LAB HEMATOLOGY METHOD 12/24/2022 3:08 PM EDT [facility] Monocytes Absolute 0.51 0.30 - 0.90 10*3/uL LAB HEMATOLOGY METHOD 12/24/2022 3:08 PM EDT [facility] Eosinophils Absolute 0.01 0.00 - 0.50 10*3/uL LAB HEMATOLOGY METHOD 12/24/2022 3:08 PM EDT [facility] Basophils Absolute 0.02 0.00 - 0.10 10*3/uL LAB HEMATOLOGY METHOD 12/24/2022 3:08 PM EDT [facility] Immature Granulocytes Absolute 0.01 0.00 [...] ORDERABLES Final R esult [facility] [address] [place] [address] documented in this encounter Visit Diagnoses Diagnosis Cancer of base of tongue (CMS/HCC)- Primary Malignant neoplasm of base of tongue Neoplasm related pain Neoplasm related pain (acute) (chronic) documented in this encounter Additional Health Concerns Assessment Noted Time A fall risk assessment has been complete d for the patient 12/04/2022 12:22 PM EDT documented as of this encounter Care Teams Child And Family Services Specialist Relationship Specialty Start Date End Date Manjit Gorman MD [address] [place] [phone] PCP - General 09/23/22 Olegario Juarez MD [address] [place] [phone] Consulting Physician Radiation Oncology 10/29/2207/05 documented as of this encounter
--- OUTSIDE RECORDS SUMMARY | 2024-07-27 06:55 | XMS_ITS | Encounter Summary ---
Author Organization [facility] Address [address] [id number] Care Team Providers Care Administrative Associate Name Role Phone Manjit Gorman MD Primary Care Provider [phone] Olegario Juarez MD Unavailable [phone] Encounter Details Date Type Department Care Team (Latest Contact Info) Description 12/03/2022 12:29 PM EDT - 12/03/2022 11:59 PM EDT Hospital Encounter [facility] [id number] [place] [address] Discharge Disposition: Still a Patient Social History [...] by mouth 3 (three) times a day. [address] mL 2 11/17/2022 3 dexamethasone (Decadron) 4 [...] [facility]ck [facility] Respiratory 800 [facility], 2nd [place] [address] 10/17/2024 9:00 AM EST Appointment [facility] PET Scan [address] [place] [address] 10/17/2024 10:00 AM EST Appointment [facility] PET Scan [address] [place] [address] 10/17/2024 11:00 AM EST Office Visit [facility] Head[facility] Neck [facility] Respiratory [address] [facility], [address]nd [place] [phone] Juan Pablo Cee MD [address] [facility] [address] [place] [address] 10/17/2024 1:00 PM EST Clinical Support [facility] Head[facility] Neck [facility] Respiratory [address] [facility], [address]nd [place] [address] 10/17/2024 2:20 PM EST Appointment [facility] [address] [place] [address] 10/20/2024 3:30 PM EST Office Visit [facility] Neck [facility] Respiratory [address] [facility], [address]nd [place] [address] Germaine Alejandro MD [address] [facility] [address] [place] [address] documented as of this encounter Visit Diagnoses Not on filedocumented in this encounter Additional Health Concerns Assessment Noted Time A fall risk assessment has been complete d for the patient 12/02/2022 1:06 PM EDT documented as of this encounter Care Teams Administrative Associate Relationship Specialty Start Date End Date Manjit Gorman MD [address] [place], [place] [phone] PCP - General 09/23/22 Olegario Juarez MD [address] [facility] [address] [place] [phone] Consulting Physician Radiation Oncology 10/29/2207/05 documented as of this encounter
--- OUTSIDE RECORDS SUMMARY | 2024-07-27 06:55 | XMS_ITS | Encounter Summary ---
Author Organization [facility] Address [address] [place] [address] Care Team Providers Care Union Representative Name Role Phone Manjit Gorman MD Primary Care Provider [phone] Olegario Juarez MD Unavailable [phone] Encounter Details Date Type Department Care Team (Latest Contact Info) Description 12/02/2022 Travel Social History Tobacco Use Types Packs/Day [...] [facility] Res[facility] 800 [facility], [address] [place] [phone] 10/17/2024 9:00 AM EST Appointment [facility] PET Scan 800 [place] [address] 10/17/2024 10:00 AM EST Appointment [facility] PET Scan [address] [place] [phone] 10/17/2024 11:00 AM EST Office Visit [facility] Head[facility] Neck [facility] Respiratory [address] [facility], [address] [place] [phone] Juan Pablo Cee MD [address] [facility] [address] [place] [phone] 10/17/2024 1:00 PM EST Clinical Support [facility] Head[facility] Neck [facility] Respiratory [address] [facility], [address] [place] [phone] 10/17/2024 2:20 PM EST Appointment [facility] [address] [place] [phone] 10/20/2024 3:30 PM EST Office Visit [facility] Head[facility] Neck [facility] Respiratory [address] [facility], [address] [place] [phone] Germaine Alejandro MD [address] [place] [phone] documented as of this encounter Visit Diagnoses Not on filedocumented in this encounter Additional Health Concerns Assessment Noted Time A fall risk assessment has been complete d for the patient 12/02/2022 1:06 PM EDT documented as of this encounter Care Teams Union Representative Relationship Specialty Start Date End Date Manjit Gorman MD [address] [place], [place] [phone] PCP - General 09/23/22 Olegario Juarez MD [address] [facility] [address] [place] [phone] Consulting Physician Radiation Oncology 10/29/2207/05 documented as of this encounter
--- OUTSIDE RECORDS SUMMARY | 2024-07-27 06:55 | XMS_ITS | Encounter Summary ---
Author Organization [facility] Address [address] [id number] Care Team Providers Care Lumber Sorter Machine Name Role Phone Manjit Gorman MD Primary Care Provider [phone] Olegario Juarez MD Unavailable [phone] Reason for Visit * Reason Comments OTV Encounter Details Date Type Department Care Team (Latest Contact Info) Description 12/02/2022 - 12/02/2022 12:34 PM EDT Hospital Encounter [facility] Radiation [id number] [place] [address] Olegario Juarez MD [address] [place] [address] Cancer of base of tongue [...] Sign Reading Time Taken Comments Blood Pressure 133/82 12/02/2022 1:04 PM EDT Pulse 64 12/02/2022 1:04 PM EDT Temperature 37.1 ??C (98.7 ??F) 12/02/2022 1:04 PM ED T Respiratory Rate 18 12/02/2022 1:04 PM EDT Oxygen Saturation 100% 12/02/2022 1:04 PM EDT Inhaled Oxygen Concentration - - Weight 79.6 kg (175 lb 7.8 oz) 12/02/2022 1:04 P M EDT Height - - Body Mass Index 22.53 11/25/2022 12:49 PM EDT documented in this encounter Medications [...] by mouth 3 (three) times a day. 72301 mL 2 11/17/2022 3 dexamethasone (Decadron) 4 [...] Progress Notes - Matthew Johnson MD - 12/02/2022 12:00 AM EDT Patient Name: Erick Sierra Date of : 1950 72 y.o. 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 Smoking Status Never BSA 2.04 m?? Physician Notes: [x] Reviewed chart and dosimetry - Current Dose - *see signed printed weekly treatment record [x] Reviewed treatment setup - Anticipated Dose - *see signed printed weekly treatment record [x] Reviewed port films or images - Examination of patient for evaluation and progress of treatment Asymptomatic Subjective Mr. Sierra presents today for his status check after completing 16/35 fractions. His main concern are his thickened secretions; he continues to use mouthwash #1 regularly, and we have encouraged his continued use to manage these secretions. He denies any blood in the sputum. His pain is well controlled, and he still has a good appetite. He reports that he is consuming 1 carton of Boost per day, and we've encouraged him to increase his intake to 3 per day. Exam shows grade 1 mucositis present in the soft palate region with erythema in the posterior oropharynx. No active bleeding or thrush were noted, dentition appears well. Overlying skin shows grade 1erythema without desquamation. Neck is soft and supple to palpation without LAD. Assessment/Plan - We will continue RT as planned - Continue TOMASA Forte#1 - Increase Boost to 3 cartons/day Radiation Treatments Active Plans H&N [RtOropharynx] Most recent treatment: Dose planned: 200 cGy (fraction 15 on 12/01/2022) Total: Dose planned: 7,000 cGy (35 fractions) Elapsed Days: 20 Reference Points RtOropharyn+Neck Most recent treatment: Dose given: 200 cGy (on 12/01/2022) Total: Dose given: 3,000 cGy Elapsed Days: 20 Resident signature: MD NURA Lopez [facility] RADIATION [address] [facility] [address] Cosigned by Olegario Juarez MD at 12/03/2022 7:32 AM EDT Associated attestation - Olegario Juarez MD - 12/03/2022 7:32 AM EDT I saw and evaluated the patient with the resident. I discussed the case with the resident and agreewith the findings and plan as documented. documented in this encounter Plan of Treatment Upcoming Encounters Date Type Department Care Team (Late st Contact Info) Description 10/17/2024 8:00 AM EST Clinical Support Pav [facility] Head, Neck & Respiratory 800 [facility], [address]nd [place] [address] 10/17/2024 9:00 AM EST Appointment [facility] PET Scan 800 [place] [address] 10/17/2024 10:00 AM EST Appointment [facility] PET Scan 800 [place] [address] 10/17/2024 11:00 AM EST Office Visit [facility] Head, Neck & Respiratory [address] [place] [address] Juan Pablo Cee MD [address] [facility] [address] [place] [address] 10/17/2024 1:00 PM EST Clinical Support [facility] Head, Neck & Respiratory [address] [place] [address] 10/17/2024 2:20 PM EST Appointment [facility] Radiology [address] [place] [address] 10/20/2024 3:30 PM EST Office Visit [facility] Head, Neck & Respiratory [address] [facility], [address]nd [place] [address] Germaine Alejandro MD [address] [place] [address] documented as of this encounter Visit Diagnoses Diagnosis Cancer of base of tongue (CMS/HCC)- Primary Malignant neoplasm of base of tongue documented in this encounter Additional Health Concerns Assessment Noted Time A fall risk assessment has been complete d for the patient 12/02/2022 1:06 PM EDT documented as of this encounter Care Teams Lumber Sorter Machine Relationship Specialty Start Date End Date Manjit Gorman MD [address] [place], [place] [id number] PCP - General 09/23/22 Olegario Juarez MD [address] [place] [address] Consulting Physician Radiation Oncology 10/29/2207/05 documented as of this encounter
--- OUTSIDE RECORDS SUMMARY | 2024-07-27 06:55 | XMS_ITS | Encounter Summary ---
Author Organization [facility] Address [address] [id number] Care Team Providers Care Geothermal Hvac Technician Name Role Phone Manjit Gorman MD Primary Care Provider [phone] Olegario Juarez MD Unavailable [phone] Encounter Details Date Type Department Care Team (Latest Contact Info) Description 12/11/2022 12:45 PM EDT - 12/11/2022 11:59 PM EDT Hospital Encounter [facility] Radiation [id number] [place] [address] Discharge Disposition: Still a Patient Social History [...] by mouth 3 (three) times a day. [address]9410 mL 2 11/17/2022 3 dexamethasone (Decadron) 4 [...] [facility] Head, Neck & Respiratory 800 [facility], 2nd [place] [address] 10/17/2024 9:00 AM EST Appointment [facility] PET Scan 800 [place] [address] 10/17/2024 10:00 AM EST Appointment [facility] PET Scan 800 [place] [address] 10/17/2024 11:00 AM EST Office Visit [facility] Head, Neck & Respiratory [address] [facility], 2nd [place] [address] Juan Pablo Cee MD [address] [facility] [address] [place] [address] 10/17/2024 1:00 PM EST Clinical Support [facility] Head, Neck & Respiratory [address] [facility], 2nd [place] [address] 10/17/2024 2:20 PM EST Appointment [facility] Radiology [address] [place] [address] 10/20/2024 3:30 PM EST Office Visit [facility] Head, Neck & Respiratory [address] [facility], [address]nd [place] [address] Germaine Alejandro MD [address] [facility] [address] [place] [address] documented as of this encounter Visit Diagnoses Not on filedocumented in this encounter Additional Health Concerns Assessment Noted Time A fall risk assessment has been complete d for the patient 12/09/2022 12:57 PM EDT documented as of this encounter Care Teams Geothermal Hvac Technician Relationship Specialty Start Date End Date Manjit Gorman MD [address] [place], [place] [id number] PCP - General 09/23/22 Olegario Juarez MD [address] [facility] [address] [place] [address] Consulting Physician Radiation Oncology 10/29/2207/05 documented as of this encounter
--- OUTSIDE RECORDS SUMMARY | 2024-07-27 06:55 | XMS_ITS | Encounter Summary ---
Author Organization [facility] Address [address] [place] [address] Care Team Providers Care Asset Protection Representative Name Role Phone Manjit Gorman MD Primary Care Provider [phone] Olegario Juarez MD Unavailable [phone] Encounter Details Date Type Department Care Team (Late Contact Info) Description 12/03/2022 Orders Only [facility] Radiation [id number] [place] [address] Radiation Oncology, Physician, [address] [place], [place] [id number] Social History Tobacco Use Types Packs/Day Years [...] & Respiratory [address] [place] [address] 10/17/2024 9:00 AM EST Appointment [facility] PET Scan 800 [place] [address] 10/17/2024 10:00 AM EST Appointment [facility] PET Scan 800 [place] [address] 10/17/2024 11:00 AM EST Office Visit [facility] Head, Neck & Respiratory 800 [facility], 2nd [place] [address] Juan Pablo Cee MD [address] [facility] [address] [place] [address] 10/17/2024 1:00 PM EST Clinical Support [facility] Head, Neck & Respiratory 800 [facility], [address] [place] [address] 10/17/2024 2:20 PM EST Appointment [facility] Radiology [address] [place] [address] 10/20/2024 3:30 PM EST Office Visit [facility] CC Head, Neck & Respiratory 800 [facility], [address] [place] [address] Germaine Alejandro MD 800 [facility] [address] [place] [address] documented as of this encounter Procedures Procedure Name Priority Date/Time Associated Diagnosis Comments RAD ONC ARIA SESSION SUMMARY Routine 12/03/2022 12:54 PM EDT documented in this encounter Results * Rad Onc Aria Session Summary (12/03/2022 12:54 PM EDT) Course ID C1 ARIA RADIATION ONCOLOGY Course Intent Curative ARIA RADIATION ONCOLOGY Course Start Date 10/30/2022 3:11 PM ARIA RADIATION ONCOLOGY Course First Treatment Date 11/11/2022 11:30 AM ARIA RADIATION ONCOLOGY Course Last Treatment Date 12/03/2022 12:47 PM ARIA RADIATION ONCOLOGY Course Elapsed Days 22 ARIA RADIATION ONCOLOGY Reference Point ID RtOropharyn+Neck ARIA RADIATION ONCOLOGY Reference Point Dosage Given to Date 34 Gy ARIA RADIATION ONCOLOGY Reference Point Session Dosage Given 4 Gy ARIA RADIATION ONCOLOGY Plan ID RtOropharynx ARIA RADIATION ONCOLOGY Plan Name H&N ARIA RADIATION ONCOLOGY Plan Fractions Treated to Date 17 ARIA RADIATION ONCOLOGY Plan Total Fractions Prescribed 35 ARIA RADIATION ONCOLOGY Plan Prescribed Dose Per Fraction 2 Gy ARIA RADIATION ONCOLOGY Plan Total Prescribed Dose 7,000 CGy ARIA RADIATION ONCOLOGY Plan Primary Reference Point RtOropharyn+Neck ARIA RADIATION ONCOLOGY 12/03/2022 12:5 4 PM EDT Physician Radiation Oncology RADIATION ONCOLO GY ORDERABLES Final Result ARIA RADIATION ONCOLOGY documented in this encounter Visit Diagnoses Not on filedocumented in this encounter Additional Health Concerns Assessment Noted Time A fall risk assessment has been complete d for the patient 12/02/2022 1:06 PM EDT documented as of this encounter Care Teams Asset Protection Representative Relationship Specialty Start Date End Date Manjit Gorman MD [address] [place] [address] PCP - General 09/23/22 Olegario Juarez MD [address] [address] Consulting Physician Radiation Oncology 10/29/2207/05 documented as of this encounter
--- OUTSIDE RECORDS SUMMARY | 2024-07-27 06:55 | XMS_ITS | Encounter Summary ---
Author Organization [facility] Address [address] [id number] Care Team Providers Care Communications Marketing Intern Name Role Phone Manjit Gorman MD Primary Care Provider [phone] Olegario Juarez MD Unavailable [phone] Encounter Details Date Type Department Care Team (Latest Contact Info) Description 12/08/2022 4:35 AM EDT - 12/08/2022 12:33 PM EDT Hospital Encounter [facility] Radiation [id number] [place] [address] Discharge Disposition: Still a Patient Social History [...] by mouth 3 (three) times a day. 28810 mL 2 11/17/2022 3 dexamethasone (Decadron) 4 [...] Respiratory 800 [facility], 2nd [place] [address] 10/17/2024 9:00 AM EST Appointment [facility] PET Scan [address] [place] [address] 10/17/2024 10:00 AM EST Appointment [facility] PET Scan [address] [place] [address] 10/17/2024 11:00 AM EST Office Visit [facility] CC Head, Neck & Respiratory 800 [facility], 2nd [place] [address] Juan Pablo Cee MD [address] [facility] [address] [place] [address] 10/17/2024 1:00 PM EST Clinical Support [facility] CC Head, Neck & Respiratory 800 [facility], 2nd [place] [address] 10/17/2024 2:20 PM EST Appointment [facility] Radiology [address] [place] [address] 10/20/2024 3:30 PM EST Office Visit [facility] CC Head, Neck & Respiratory 800 [facility], [address]nd [place] [address] Germaine Alejandro MD 800 [facility] [address] [place] [address] documented as of this encounter Visit Diagnoses Not on filedocumented in this encounter Additional Health Concerns Assessment Noted Time A fall risk assessment has been complete d for the patient 12/05/2022 9:27 AM EDT documented as of this encounter Care Teams Communications Marketing Intern Relationship Specialty Start Date End Date Manjit Goramn MD [address] [place], [place] [id number] PCP - General 09/23/22 Olegario Juarez MD 800 [facility] [address] [place] [address] Consulting Physician Radiation Oncology 10/29/2207/05 documented as of this encounter
--- OUTSIDE RECORDS SUMMARY | 2024-07-27 06:55 | XMS_ITS | Encounter Summary ---
Author Organization [facility] Address [address] [place] [address] Care Team Providers Care Continuous Mining Machine Operator Name Role Phone Manjit Gorman MD Primary Care Provider [phone] Olegario Juarez MD Unavailable [phone] Encounter Details Date Type Department Care Team (Late Contact Info) Description 12/05/2022 Orders Only [facility] Radiation [id number] [place] [address] Radiation Oncology, Physician, [address] [place], [place] [phone] Social History Tobacco Use Types Packs/Day Years [...] & Respiratory [address] [place] [address] 10/17/2024 9:00 AM EST Appointment [facility] PET Scan 800 [place] [address] 10/17/2024 10:00 AM EST Appointment [facility] PET Scan 800 [place] [address] 10/17/2024 11:00 AM EST Office Visit [facility] CC Head, Neck & Respiratory 800 [facility], [address]nd [place] [address] Juan Pablo Cee MD [address] [facility] [address] [place] [address] 10/17/2024 1:00 PM EST Clinical Support [facility] Head, Neck & Respiratory 800 [facility], [address] [place] [address] 10/17/2024 2:20 PM EST Appointment [facility] G Radiology [address] [place] [address] 10/20/2024 3:30 PM EST Office Visit [facility] CC Head, Neck & Respiratory [address] [facility], [address] [place] [address] Germaine Alejandro MD 800 [facility] [address] [place] [address] documented as of this encounter Procedures Procedure Name Priority Date/Time Associated Diagnosis Comments RAD ONC ARIA SESSION SUMMARY Routine 12/05/2022 1:44 PM EDT documented in this encounter Results * Rad Onc Aria Session Summary (12/05/2022 1:44 PM EDT) Course ID C1 ARIA RADIATION ONCOLOGY Course Intent Curative ARIA RADIATION ONCOLOGY Course Start Date 10/30/2022 3:11 PM ARIA RADIATION ONCOLOGY Course First Treatment Date 11/11/2022 11:30 AM ARIA RADIATION ONCOLOGY Course Last Treatment Date 12/05/2022 1:37 PM ARIA RADIATION ONCOLOGY Course Elapsed Days 24 ARIA RADIATION ONCOLOGY Reference Point ID RtOropharyn+Neck ARIA RADIATION ONCOLOGY Reference Point Dosage Given to Date 38 Gy ARIA RADIATION ONCOLOGY Reference Point Session Dosage Given 2 Gy ARIA RADIATION ONCOLOGY Plan ID RtOropharynx ARIA RADIATION ONCOLOGY Plan Name H&N ARIA RADIATION ONCOLOGY Plan Fractions Treated to Date 19 ARIA RADIATION ONCOLOGY Plan Total Fractions Prescribed 35 ARIA RADIATION ONCOLOGY Plan Prescribed Dose Per Fraction 2 Gy ARIA RADIATION ONCOLOGY Plan Total Prescribed Dose 7,000 CGy ARIA RADIATION ONCOLOGY Plan Primary Reference Point RtOropharyn+Neck ARIA RADIATION ONCOLOGY 12/05/2022 1:44 PM EDT Physician Radiation Oncology RADIATION ONCOLO GY ORDERABLES Final Result ARIA RADIATION ONCOLOGY documented in this encounter Visit Diagnoses Not on filedocumented in this encounter Additional Health Concerns Assessment Noted Time A fall risk assessment has been complete d for the patient 12/05/2022 9:27 AM EDT documented as of this encounter Care Teams Continuous Mining Machine Operator Relationship Specialty Start Date End Date Manjit Gorman MD [address] [place] [address] PCP - General 09/23/22 Olegario Juarez MD [address] [address] Consulting Physician Radiation Oncology 10/29/2207/05 documented as of this encounter
--- OUTSIDE RECORDS SUMMARY | 2024-07-27 06:55 | XMS_ITS | Encounter Summary ---
Author Organization [facility] Address [address] [id number] Care Team Providers Care Communications Agent Name Role Phone Manjit Gorman MD Primary Care Provider [phone] Olegario Juarez MD Unavailable [phone] Reason for Visit * Episode Based Medications (Routine) - Closed Specialty Diagnoses / Procedures Referred By Contac t Referred To Contact Diagnoses Cancer of base of tongue (CMS/HCC) Germaine Alejandro MD [address] [address] Phone: tel: fax: [facility] [address] [place] [address] Phone: tel: Referral ID Status Reason Start Date Expiration Date Visits Re quested Visits Authorized [id number] Closed 11/10/2022 05/11/2024 1 9 Encounter Details Date Type Department Care Team (Latest Contact Info) Description 12/05/2022 9:27 AM EDT - 12/05/2022 12:28 PM EDT Hospital Encounter [facility] Infusion [address] [place] [address] Cancer of base of tongue [...] Sign Reading Time Taken Comments Blood Pressure 135/74 12/05/2022 9:27 AM EDT Pulse 72 12/05/2022 9:27 AM EDT Temperature 36.6 ??C (97.9 ??F) 12/05/2022 9:27 AM ED T Respiratory Rate 18 12/05/2022 9:27 AM EDT Oxygen Saturation 100% 12/05/2022 9:27 AM EDT Inhaled Oxygen Concentration - - Weight 79.8 kg (175 lb 14.8 oz) 12/05/2022 9:27 AM EDT Height 188 cm (6' 2 ) 12/05/2022 9:27 AM EDT Body Mass Index 22.59 12/05/2022 9:27 AM EDT documented in this [...] by mouth 3 (three) times a day. 97754 mL 2 11/17/2022 3 dexamethasone (Decadron) 4 [...] encounter Miscellaneous Notes * Addendum Note - Parish Gordillo - 12/05/2022 9:30 AM EDTEncounter addended by: Parish Gordillo on: 12/09/2022 9:39 AM Actions taken: Charge Capture section accepted * Addendum Note - Nancy Durand - 12/05/2022 9:30 AM EDTEncounter addended by: Nancy Durand on: 12/19/2022 3:42 PM Actions taken: Charge Capture section accepted documented in this encounter Plan of Treatment Upcoming Encounters Date Type Department Care Team (Late st Contact Info) Description 10/17/2024 8:00 AM EST Clinical Support [facility] Head, Neck & Respiratory 800 [facility], [address]nd [place] [address] 10/17/2024 9:00 AM EST Appointment [facility] PET Scan 800 [place] [address] 10/17/2024 10:00 AM EST Appointment [facility] PET Scan [address] [place] [address] 10/17/2024 11:00 AM EST Office Visit [facility] CC Head, Neck & Respiratory 800 [facility], [address]nd [place] [address] Juan Pablo Cee MD [address] [facility] [address] [place] [address] 10/17/2024 1:00 PM EST Clinical Support [facility] CC Head, Neck & Respiratory [address] [facility], [address] [place] [address] 10/17/2024 2:20 PM EST Appointment [facility] G Radiology [address] [place] [address] 10/20/2024 3:30 PM EST Office Visit [facility] CC Head, Neck & Respiratory [address] [facility], [address] [place] [address] Germaine Alejandro MD 800 [facility] [address] [place] [address] documented as of this encounter Visit Diagnoses Diagnosis Cancer of base of tongue (CMS/HCC)- Primary Malignant neoplasm of base of tongue documented in this encounter Administered Medications Inactive Administered Medications - up to 3 most recent administrations Medication Order MAR Action Action Date Dose Rate Site aprepitant (Cinvanti) 130 MG/18ML IV 130 mg 130 mg, Intravenous, Once, 1 dose, On Thu12/05/22 at 1000, RoutineIndications:Cancer of base of tongue (CMS/HCC) New Bag 12/05/2022 10:14 AM EDT 130 mg CISplatin (Platinol) 208 mg in sodium chloride 0.9 % 500 mL chemo IV 208 mg (100 mg/m2 ? 2.08 m2 Treatment Plan BSA from Recorded weight), Intravenous, at 778 mL/hr, Administer over 1 Hours, Once, Protect from light. Hazardous Tier 1 Irritant, On Thu12/05/22 at 1030, For 1 dose, In 500 mL NSIndications:Cancer of base of tongue (CMS/HCC) New Bag 12/05/2022 11:20 AM EDT 208 mg 778 mL/hr dexamethasone (Decadron) tablet 12 mg 12 mg, Oral, Once, 1 dose, On Thu12/05/22 at 1000, RoutineIndications:Cancer of base of tongue (CMS/HCC) Given 12/05/2022 10:12 AM EDT 12 mg ondansetron ODT (Zofran-ODT) disintegrating tablet 16 mg 16 mg, Oral, Once, 1 dose, On Thu12/05/22 at 1000, RoutineIndications:Cancer of base of tongue (CMS/HCC) Given 12/05/2022 10:12 AM EDT 16 mg sodium chloride 0.9 % with magnesium sulfate 2 g 1,000 mL infusion 999 mL/hr, Intravenous, Once, 1 dose, On Thu12/05/22 at 1000, RoutineIndications:Cancer of base of tongue (CMS/HCC) New Bag 12/05/2022 10:03 AM EDT 999 mL/hr 999 mL/hr sodium chloride 0.9 % with magnesium sulfate 2 g 1,000 mL infusion 999 mL/hr, Intravenous, Once, 1 dose, On Thu12/05/22 at 1130, RoutineIndications:Cancer of base of tongue (CMS/HCC) New Bag 12/05/2022 12:25 PM EDT 999 mL/hr 999 mL/hr documented in this encounter Additional Health Concerns Assessment Noted Time A fall risk assessment has been complete d for the patient 12/05/2022 9:27 AM EDT documented as of this encounter Care Teams Communications Agent Relationship Specialty Start Date End Date Manjit Gorman MD [address] [place] [address] PCP - General 09/23/22 Olegario Juarez MD [address] [address] Consulting Physician Radiation Oncology 10/29/2207/05 documented as of this encounter
--- OUTSIDE RECORDS SUMMARY | 2024-07-27 06:56 | XMS_ITS | Encounter Summary ---
Author Organization [facility] Address [address] [place] [address] Care Team Providers Care Weight Count Operator Name Role Phone Manjit Gorman MD Primary Care Provider [phone] Olegario Juarez MD Unavailable [phone] Encounter Details Date Type Department Care Team (Late Contact Info) Description 11/24/2022 Orders Only [facility] Radiation [id number] [place] [address] Radiation Oncology, Physician, [address] [place], [place] [id number] Social History Tobacco Use Types Packs/Day Years [...] suspected to have Coronavirus/COVID-19? No / Unsure 11/23/2022 10:41 AM EDT documented as of this encounter Plan of Treatment Upcoming Encounters Date Type Department Care Team (Late st Contact Info) Description 10/17/2024 8:00 AM EST Clinical Support [facility] Head, Neck & Respiratory [address], 2nd [place] [address] 10/17/2024 9:00 AM EST Appointment [facility] PET Scan 800 [place] [address] 10/17/2024 10:00 AM EST Appointment [facility] PET Scan 800 [place] [address] 10/17/2024 11:00 AM EST Office Visit [facility] Head, Neck & Respiratory 800 [facility], 2nd [place] [address] Juan Pablo Cee MD [address] [facility] [address] [place] [address] 10/17/2024 1:00 PM EST Clinical Support Pav [facility] Head, Neck & Respiratory 800 [facility], 2nd [place] [address] 10/17/2024 2:20 PM EST Appointment P[facility] G Radiology [address] [place] [address] 10/20/2024 3:30 PM EST Office Visit [facility] Head, Neck & Respiratory 800 [facility], [address]nd [place] [address] Germaine Alejandro MD 800 [facility] [address] [place] [address] documented as of this encounter Procedures Procedure Name Priority Date/Time Associated Diagnosis Comments RAD ONC ARIA SESSION SUMMARY Routine 11/24/2022 1:53 PM EDT documented in this encounter Results * Rad Onc Aria Session Summary (11/24/2022 1:53 PM EDT) Course ID C1 ARIA RADIATION ONCOLOGY Course Intent Curative ARIA RADIATION ONCOLOGY Course Start Date 10/30/2022 3:11 PM ARIA RADIATION ONCOLOGY Course First Treatment Date 11/11/2022 11:30 AM ARIA RADIATION ONCOLOGY Course Last Treatment Date 11/24/2022 1:47 PM ARIA RADIATION ONCOLOGY Course Elapsed Days 13 ARIA RADIATION ONCOLOGY Reference Point ID RtOropharyn+Neck ARIA RADIATION ONCOLOGY Reference Point Dosage Given to Date 20 Gy ARIA RADIATION ONCOLOGY Reference Point Session Dosage Given 2 Gy ARIA RADIATION ONCOLOGY Plan ID RtOropharynx ARIA RADIATION ONCOLOGY Plan Name H&N ARIA RADIATION ONCOLOGY Plan Fractions Treated to Date 10 ARIA RADIATION ONCOLOGY Plan Total Fractions Prescribed 35 ARIA RADIATION ONCOLOGY Plan Prescribed Dose Per Fraction 2 Gy ARIA RADIATION ONCOLOGY Plan Total Prescribed Dose 7,000 CGy ARIA RADIATION ONCOLOGY Plan Primary Reference Point RtOropharyn+Neck ARIA RADIATION ONCOLOGY 11/24/2022 1:53 PM EDT Physician Radiation Oncology RADIATION ONCOLO GY ORDERABLES Final Result ARIA RADIATION ONCOLOGY documented in this encounter Visit Diagnoses Not on filedocumented in this encounter Additional Health Concerns Assessment Noted Time A fall risk assessment has been complete d for the patient 11/18/2022 1:52 PM EDT documented as of this encounter Care Teams Weight Count Operator Relationship Specialty Start Date End Date Manjit Gorman MD [address] [place] [address] PCP - General 09/23/22 Olegario Juarez MD [address] [address] Consulting Physician Radiation Oncology 10/29/2207/05 documented as of this encounter
--- OUTSIDE RECORDS SUMMARY | 2024-07-27 06:56 | XMS_ITS | Encounter Summary ---
Author Organization [facility] Address [address] [place] [address] Care Team Providers Care Licensed Occupational Therapist Name Role Phone Manjit Gorman MD Primary Care Provider [phone] Olegario Juarez MD Unavailable [phone] Encounter Details Date Type Department Care Team (Latest Contact Info) Description 11/17/2022 Travel Social History Tobacco Use Types Packs/Day [...] suspected to have Coronavirus/COVID-19? No / Unsure 11/14/2022 7:09 AM EST documented as of this encounter Plan of Treatment Upcoming Encounters Date Type Department Care Team (Late st Contact Info) Description 10/17/2024 8:00 AM EST Clinical Support Pav [facility] Head, Neck & Respiratory 800 [facility], 2nd [place] [address] 10/17/2024 9:00 AM EST Appointment [facility] PET Scan 800 [place] [address] 10/17/2024 10:00 AM EST Appointment [facility] PET Scan 800 [place] [address] 10/17/2024 11:00 AM EST Office Visit Pav [facility] Head, Neck & Respiratory 800 [facility], 2nd [place] [address] Juan Pablo Cee MD [address] [facility] [address] [place] [address] 10/17/2024 1:00 PM EST Clinical Support Pav CC Head, Neck & Respiratory 800 [facility], 2nd [place] [address] 10/17/2024 2:20 PM EST Appointment PAV G Radiology [address] [place] [address] 10/20/2024 3:30 PM EST Office Visit [facility] Head, Neck & Respiratory 800 [facility], [address]nd [place] [address] Germaine Alejandro MD [address] [facility] [address] [place] [address] documented as of this encounter Visit Diagnoses Not on filedocumented in this encounter Additional Health Concerns Assessment Noted Time A fall risk assessment has been complete d for the patient 11/14/2022 9:25 AM EST documented as of this encounter Care Teams Licensed Occupational Therapist Relationship Specialty Start Date End Date Manjit Gorman MD [address] [place], [place] [phone] PCP - General 09/23/22 Olegario Juarez MD [address] [place] [address] Consulting Physician Radiation Oncology 10/29/2207/05 documented as of this encounter
--- OUTSIDE RECORDS SUMMARY | 2024-07-27 06:56 | XMS_ITS | Encounter Summary ---
Author Organization [facility] Address [address] [id number] Care Team Providers Care Aer[employer] Control [employer] Warning [employer] Name Role Phone Manjit Gorman MD Primary Care Provider [phone] Olegario Juarez MD Unavailable [phone] Encounter Details Date Type Department Care Team (Latest Contact Info) Description 11/21/2022 12:32 PM EDT - 11/21/2022 11:59 PM EDT Hospital Encounter [facility] Radiation [address] [place] [address] Discharge Disposition: Still a Patient Social History [...] suspected to have Coronavirus/COVID-19? No / Unsure 11/18/2022 1:44 PM EDT documented as of this encounter [...] by mouth 3 (three) times a day. 25621 mL 2 11/17/2022 3 dexamethasone (Decadron) 4 [...] 800 [facility], 2nd [place] [address] 10/17/2024 9:00 AM EST Appointment [facility] PET Scan 800 [place] [address] 10/17/2024 10:00 AM EST Appointment [facility] PET Scan 800 [place] [address] 10/17/2024 11:00 AM EST Office Visit [facility] Head, Neck & Respiratory 800 [facility], 2nd [place] [address] Juan Pablo Cee MD [address] [facility] [address] [place] [address] 10/17/2024 1:00 PM EST Clinical Support Pav CC Head, Neck & Respiratory 800 [facility], 2nd [place] [address] 10/17/2024 2:20 PM EST Appointment [facility] G Radiology [address] [place] [address] 10/20/2024 3:30 PM EST Office Visit Pav CC Head, Neck & Respiratory 800 [facility], 2nd [place] [address] Germaine Alejandro MD 800 [facility] [address] [place] [address] documented as of this encounter Visit Diagnoses Not on filedocumented in this encounter Additional Health Concerns Assessment Noted Time A fall risk assessment has been complete d for the patient 11/18/2022 1:52 PM EDT documented as of this encounter Care Teams [employer] Relationship Specialty Start Date End Date Manjit Gorman MD [address] [place], [place] [id number] PCP - General 09/23/22 Olegario Juarez MD 800 [facility] [address] [place] [address] Consulting Physician Radiation Oncology 10/29/2207/05 documented as of this encounter
--- OUTSIDE RECORDS SUMMARY | 2024-07-27 06:56 | XMS_ITS | Encounter Summary ---
Author Organization [facility] Address [address] [place] [address] Care Team Providers Care Program Director Scouting Name Role Phone Manjit Gorman MD Primary Care Provider [phone] Olegario Juarez MD Unavailable [phone] Encounter Details Date Type Department Care Team (Latest Contact Info) Description 11/23/2022 Travel Social History Tobacco Use Types Packs/Day [...] [facility] Head, Neck & Respiratory 800 [facility], 2nd [place] [address] 10/17/2024 9:00 AM EST Appointment [facility] PET Scan [address] [place] [address] 10/17/2024 10:00 AM EST Appointment [facility] PET Scan 800 [place] [address] 10/17/2024 11:00 AM EST Office Visit Pav CC Head, Neck & Respiratory 800 [facility], 2nd [place] [address] Juan Pablo Cee MD [address] [facility] [address] [place] [address] 10/17/2024 1:00 PM EST Clinical Support Pav CC Head, Neck & Respiratory 800 [facility], 2nd [place] [address] 10/17/2024 2:20 PM EST Appointment P[facility] G Radiology [address] [place] [address] 10/20/2024 3:30 PM EST Office Visit Pav CC Head, Neck & Respiratory 800 [facility], 2nd [place] [address] Germaine Alejandro MD [address] [facility] [address] [place] [address] documented as of this encounter Visit Diagnoses Not on filedocumented in this encounter Additional Health Concerns Assessment Noted Time A fall risk assessment has been complete d for the patient 11/18/2022 1:52 PM EDT documented as of this encounter Care Teams Program Director Scouting Relationship Specialty Start Date End Date Manjit Gorman MD [address] [place], [place] [phone] PCP - General 09/23/22 Olegario Juarez MD [address] [facility] [address] [place] [address] Consulting Physician Radiation Oncology 10/29/2207/05 documented as of this encounter
--- OUTSIDE RECORDS SUMMARY | 2024-07-27 06:56 | XMS_ITS | Encounter Summary ---
Author Organization [facility] Address [address] [phone] Care Team Providers Care Continuous Churn Buttermaker Name Role Phone Manjit Gorman MD Primary Care Provider [phone] Olegario Juarez MD Unavailable [phone] Encounter Details Date Type Department Care Team (Latest Contact Info) Description 11/19/2022 1:42 PM EDT - 11/19/2022 11:59 PM EDT Hospital Encounter [facility] Radiation [address] [place] [address] Discharge Disposition: Still a Patient Social History [...] by mouth 3 (three) times a day. 55850 mL 2 11/17/2022 3 dexamethasone (Decadron) 4 [...] [facility], 2nd [place] [address] 10/17/2024 9:00 AM EST Appointment [facility] PET Scan 800 [place] [address] 10/17/2024 10:00 AM EST Appointment [facility] PET Scan 800 [place] [address] 10/17/2024 11:00 AM EST Office Visit Pav CC Head, Neck & Respiratory 800 [facility], 2nd [place] [address] Juan Pablo Cee MD [address] [facility] [address] [place] [address] 10/17/2024 1:00 PM EST Clinical Support Pav CC Head, Neck & Respiratory 800 [facility], 2nd [place] [address] 10/17/2024 2:20 PM EST Appointment P[facility] G Radiology [address] [place] [address] 10/20/2024 3:30 PM EST Office Visit Pav CC Head, Neck & Respiratory [address] [facility], 2nd [place] [address] Germaine Alejandro MD [address] [facility] [address] [place] [address] documented as of this encounter Visit Diagnoses Not on filedocumented in this encounter Additional Health Concerns Assessment Noted Time A fall risk assessment has been complete d for the patient 11/18/2022 1:52 PM EDT documented as of this encounter Care Teams Continuous Churn Buttermaker Relationship Specialty Start Date End Date Manjit Gorman MD [address] [place], [place] [phone] PCP - General 09/23/22 Olegario Juarez MD 800 [facility] [address] [place] [address] Consulting Physician Radiation Oncology 10/29/2207/05 documented as of this encounter
--- OUTSIDE RECORDS SUMMARY | 2024-07-27 06:56 | XMS_ITS | Encounter Summary ---
Author Organization [facility] Address [address] [place] [address] Care Team Providers Care Autocad Designer Name Role Phone Manjit Gorman MD Primary Care Provider [phone] Olegario Juarez MD Unavailable [phone] Encounter Details Date Type Department Care Team (Latest Contact Info) Description 11/18/2022 Travel Social History Tobacco Use Types Packs/Day [...] 800 [facility], 2nd [place] [address] 10/17/2024 9:00 AM EST Appointment [facility] PET Scan 800 [place] [address] 10/17/2024 10:00 AM EST Appointment [facility] PET Scan 800 [place] [address] 10/17/2024 11:00 AM EST Office Visit Pav CC Head, Neck & Respiratory 800 [facility], 2nd [place] [address] Juan Pablo Cee MD [address] [facility] [address] [place] [address] 10/17/2024 1:00 PM EST Clinical Support Pav CC Head, Neck & Respiratory 800 [facility], 2nd [place] [address] 10/17/2024 2:20 PM EST Appointment PAV G Radiology [address] [place] [address] 10/20/2024 3:30 PM EST Office Visit Pav CC Head, Neck & Respiratory 800 [facility], [address]nd [place] [address] Germaine Alejandro MD [address] [facility] [address] [place] [address] documented as of this encounter Visit Diagnoses Not on filedocumented in this encounter Additional Health Concerns Assessment Noted Time A fall risk assessment has been complete d for the patient 11/18/2022 1:52 PM EDT documented as of this encounter Care Teams Autocad Designer Relationship Specialty Start Date End Date Manjit Gorman MD [address] [place], [place] [phone] PCP - General 09/23/22 Olegario Juarez MD [address] [facility] [address] [place] [address] Consulting Physician Radiation Oncology 10/29/2207/05 documented as of this encounter
--- OUTSIDE RECORDS SUMMARY | 2024-07-27 06:56 | XMS_ITS | Encounter Summary ---
Author Organization [facility] Address [address] [place] [address] Care Team Providers Care Metal Bumper Name Role Phone Manjit Gorman MD Primary Care Provider [phone] Olegario Juarez MD Unavailable [phone] Encounter Details Date Type Department Care Team (Late Contact Info) Description 11/28/2022 Orders Only [facility] Radiation [id number] [place] [address] Radiation Oncology, Physician, [address] [place], [place] [address] Social History Tobacco Use Types Packs/Day Years [...] & Respiratory [address], [address]nd [place] [address] 10/17/2024 9:00 AM EST Appointment [facility] PET Scan 800 [place] [address] 10/17/2024 10:00 AM EST Appointment [facility] PET Scan 800 [place] [address] 10/17/2024 11:00 AM EST Office Visit Pav CC Head, Neck & Respiratory 800 [facility], 2nd [place] [address] Juan Pablo Cee MD [address] [facility] [address] [place] [address] 10/17/2024 1:00 PM EST Clinical Support Pav CC Head, Neck & Respiratory 800 [facility], 2nd [place] [address] 10/17/2024 2:20 PM EST Appointment PAV G Radiology [address] [place] [address] 10/20/2024 3:30 PM EST Office Visit Pav CC Head, Neck & Respiratory 800 [facility], 2nd [place] [address] Germaine Alejandro MD 800 [facility] [address] [place] [address] documented as of this encounter Procedures Procedure Name Priority Date/Time Associated Diagnosis Comments RAD ONC ARIA SESSION SUMMARY Routine 11/28/2022 12:56 PM EDT documented in this encounter Results * Rad Onc Aria Session Summary (11/28/2022 12:56 PM EDT) Course ID C1 ARIA RADIATION ONCOLOGY Course Intent Curative ARIA RADIATION ONCOLOGY Course Start Date 10/30/2022 3:11 PM ARIA RADIATION ONCOLOGY Course First Treatment Date 11/11/2022 11:30 AM ARIA RADIATION ONCOLOGY Course Last Treatment Date 11/28/2022 12:49 PM ARIA RADIATION ONCOLOGY Course Elapsed Days 17 ARIA RADIATION ONCOLOGY Reference Point ID RtOropharyn+Neck ARIA RADIATION ONCOLOGY Reference Point Dosage Given to Date 28 Gy ARIA RADIATION ONCOLOGY Reference Point Session Dosage Given 2 Gy ARIA RADIATION ONCOLOGY Plan ID RtOropharynx ARIA RADIATION ONCOLOGY Plan Name H&N ARIA RADIATION ONCOLOGY Plan Fractions Treated to Date 14 ARIA RADIATION ONCOLOGY Plan Total Fractions Prescribed 35 ARIA RADIATION ONCOLOGY Plan Prescribed Dose Per Fraction 2 Gy ARIA RADIATION ONCOLOGY Plan Total Prescribed Dose 7,000 CGy ARIA RADIATION ONCOLOGY Plan Primary Reference Point RtOropharyn+Neck ARIA RADIATION ONCOLOGY 11/28/2022 12:5 6 PM EDT Physician Radiation Oncology RADIATION ONCOLO GY ORDERABLES Final Result ARIA RADIATION ONCOLOGY documented in this encounter Visit Diagnoses Not on filedocumented in this encounter Additional Health Concerns Assessment Noted Time A fall risk assessment has been complete d for the patient 11/25/2022 12:52 PM EDT documented as of this encounter Care Teams Metal Bumper Relationship Specialty Start Date End Date Manjit Gorman MD [address] [place] [address] PCP - General 09/23/22 Olegario Juarez MD [address] [address] Consulting Physician Radiation Oncology 10/29/2207/05 documented as of this encounter
--- OUTSIDE RECORDS SUMMARY | 2024-07-27 06:56 | XMS_ITS | Encounter Summary ---
Author Organization [facility] Address [address] [place] [address] Care Team Providers Care Presser Machine Name Role Phone Manjit Gorman MD Primary Care Provider [phone] Olegario Juarez MD Unavailable [phone] Encounter Details Date Type Department Care Team (Late Contact Info) Description 11/17/2022 Orders Only [facility] CC Radiation [id number] [place] [address] Radiation Oncology, Physician, [address] [place], [place] [phone] Social History Tobacco Use Types Packs/Day Years [...] & Respiratory [address], [address] [place] [address] 10/17/2024 9:00 AM EST Appointment [facility] PET Scan 800 [place] [address] 10/17/2024 10:00 AM EST Appointment [facility] PET Scan 800 [place] [address] 10/17/2024 11:00 AM EST Office Visit Pav CC Head, Neck & Respiratory 800 [facility], [address]nd [place] [address] Juan Pablo Cee MD [address] [facility] [address] [place] [address] 10/17/2024 1:00 PM EST Clinical Support Pav CC Head, Neck & Respiratory 800 [facility], [address] [place] [address] 10/17/2024 2:20 PM EST Appointment PAV G Radiology [address] [place] [address] 10/20/2024 3:30 PM EST Office Visit Pav CC Head, Neck & Respiratory 800 [facility], [address] [place] [address] Germaine Alejandro MD 800 [facility] [address] [place] [address] documented as of this encounter Procedures Procedure Name Priority Date/Time Associated Diagnosis Comments RAD ONC ARIA SESSION SUMMARY Routine 11/17/2022 12:50 PM EDT documented in this encounter Results * Rad Onc Aria Session Summary (11/17/2022 12:50 PM EDT) Course ID C1 ARIA RADIATION ONCOLOGY Course Intent Curative ARIA RADIATION ONCOLOGY Course Start Date 10/30/2022 3:11 PM ARIA RADIATION ONCOLOGY Course First Treatment Date 11/11/2022 11:30 AM ARIA RADIATION ONCOLOGY Course Last Treatment Date 11/17/2022 12:44 PM ARIA RADIATION ONCOLOGY Course Elapsed Days 6 ARIA RADIATION ONCOLOGY Reference Point ID RtOropharyn+Neck ARIA RADIATION ONCOLOGY Reference Point Dosage Given to Date 10 Gy ARIA RADIATION ONCOLOGY Reference Point Session Dosage Given 2 Gy ARIA RADIATION ONCOLOGY Plan ID RtOropharynx ARIA RADIATION ONCOLOGY Plan Name H&N ARIA RADIATION ONCOLOGY Plan Fractions Treated to Date 5 ARIA RADIATION ONCOLOGY Plan Total Fractions Prescribed 35 ARIA RADIATION ONCOLOGY Plan Prescribed Dose Per Fraction 2 Gy ARIA RADIATION ONCOLOGY Plan Total Prescribed Dose 7,000 CGy ARIA RADIATION ONCOLOGY Plan Primary Reference Point RtOropharyn+Neck ARIA RADIATION ONCOLOGY 11/17/2022 12:5 0 PM EDT Physician Radiation Oncology RADIATION ONCOLO GY ORDERABLES Final Result ARIA RADIATION ONCOLOGY documented in this encounter Visit Diagnoses Not on filedocumented in this encounter Additional Health Concerns Assessment Noted Time A fall risk assessment has been complete d for the patient 11/14/2022 9:25 AM EST documented as of this encounter Care Teams Presser Machine Relationship Specialty Start Date End Date Manjit Gorman MD [address] [place] [address] PCP - General 09/23/22 Olegario Juarez MD [address] [address] Consulting Physician Radiation Oncology 10/29/2207/05 documented as of this encounter
--- OUTSIDE RECORDS SUMMARY | 2024-07-27 06:56 | XMS_ITS | Encounter Summary ---
Author Organization [facility] Address [address] [place] [address] Care Team Providers Care Ladle Filler Name Role Phone Manjit Gorman MD Primary Care Provider [phone] Olegario Juarez MD Unavailable [phone] Reason for Visit * Reason Comments OTV Encounter Details Date Type Department Care Team (Latest Contact Info) Description 11/18/2022 1:00 PM EDT - 11/18/2022 11:59 PM EDT Hospital Encounter PAV CC Radiation 800 [facility]. [address] [place] [address] Olegario Jaurez MD [address] [place] [address] Cancer of base of tongue [...] Sign Reading Time Taken Comments Blood Pressure 132/82 11/18/2022 1:22 PM EDT Pulse 62 11/18/2022 1:22 PM EDT Temperature 36.5 ??C (97.7 ??F) 11/18/2022 1:22 PM ED T Respiratory Rate 16 11/18/2022 1:22 PM EDT Oxygen Saturation 100% 11/18/2022 1:22 PM EDT Inhaled Oxygen Concentration - - Weight 79.9 kg (176 lb 2.4 oz) 11/18/2022 1:22 P M EDT Height 188 cm (6' 2 ) 11/18/2022 1:22 PM EDT Body Mass Index 22.62 11/18/2022 1:22 PM EDT documented in this encounter Medications [...] by mouth 3 (three) times a day. 86426 mL 2 11/17/2022 3 dexamethasone (Decadron) 4 [...] Progress Notes - Matthew Johnson MD - 11/18/2022 1:00 PM EDT Patient Name: Erick Sierra Date of : 1950 72 y.o. Encounter Date: 11/18/2022 RESEARCH STUDY PATIENT: Yes: [] No: [x] [...] BSA: 2.04 meters squared Visit Vitals BP 132/82 Pulse 62 Temp 36.5 ??C (97.7 ??F) Resp 16 Ht 1.88 m (6' 2 ) Wt 79.9 kg (176 lb 2.4 oz) SpO2 100% BMI 22.62 kg/m?? Smoking Status Never BSA 2.04 m?? Physician Notes: [x] Reviewed chart and dosimetry - Current Dose - *see signed printed weekly treatment record [x] Reviewed treatment setup - Anticipated Dose - *see signed printed weekly treatment record [x] Reviewed port films or images - Examination of patient for evaluation and progress of treatment Asymptomatic Subjective Mr. Sierra presents today in stable clinical condition; he has received 6/35 fractions so far. He received his first chemotherapy infusion on Thursday (C2D1 = 12/05/22) and reports mild nausea and hiccups over the weekend. His nausea has since resolved with anti-emetics, though he reports constipation from his medication. We advised that he take Miralax and stool softeners for relief. Otherwise, Mr. Sierra denies any new symptoms. He has spoken with Dietary and is expecting to begin receiving cases of Boost soon. He is using mouthwash#1 and Aquaphor as instructed. Exam shows grade 1 erythema of the soft palate and posterior pharyngeal wall without mucosal changes. No bleeding or thrush were noted. Overlying skin shows grade 1 erythema without desquamation. Assessment/Plan - We will continue RT as planned - Continue Aquaphor, MW#1 - Boost for nutritional supplementation Radiation Treatments Active Plans H&N [RtOropharynx] Most recent treatment: Dose planned: 200 cGy (fraction 6 on 11/18/2022) Total: Dose planned: 7,000 cGy (35 fractions) Elapsed Days: 7 Reference Points RtOropharyn+Neck Most recent treatment: Dose given: 200 cGy (on 11/18/2022) Total: Dose given: 1,200 cGy Elapsed Days: 7 Resident signature: MD NURA LopezEY PAV CC RADIATION 800 [facility] [address] Cosigned by Olegario Juarez MD at 11/20/2022 7:33 AM EDT Associated attestation - Olegario Juarez MD - 11/20/2022 7:33 AM EDT I saw and evaluated the patient with the resident. I discussed the case with the resident and agreewith the findings and plan as documented. documented in this encounter Plan of Treatment Upcoming Encounters Date Type Department Care Team (Late st Contact Info) Description 10/17/2024 8:00 AM EST Clinical Support Pav CC Head, Neck & Respiratory 800 [facility], 2nd [place] [address] 10/17/2024 9:00 AM EST Appointment [facility] PET Scan 800 [place] [address] 10/17/2024 10:00 AM EST Appointment [facility] PET Scan 800 [place] [address] 10/17/2024 11:00 AM EST Office Visit Pav CC Head, Neck & Respiratory 800 [facility], [address] [place] [address] Juan Pablo Cee MD [address] [facility] [address] [place] [address] 10/17/2024 1:00 PM EST Clinical Support Pav CC Head, Neck & Respiratory 800 [facility], [address] [place] [address] 10/17/2024 2:20 PM EST Appointment PAV G Radiology [address] [place] [address] 10/20/2024 3:30 PM EST Office Visit Pav CC Head, Neck & Respiratory 800 [facility], [address] [place] [address] Germaine Alejandro MD 800 [facility] [address] [place] [address] documented as of this encounter Visit Diagnoses Diagnosis 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
--- OUTSIDE RECORDS SUMMARY | 2024-07-27 06:56 | XMS_ITS | Encounter Summary ---
Author Organization [facility] Address [address] [place] [address] Care Team Providers Care Tinware Lithograph Press Operator Name Role Phone Manjit Gorman MD Primary Care Provider [phone] Olegario Juarez MD Unavailable [phone] Encounter Details Date Type Department Care Team (Late st Contact Info) Description 11/27/2022 Telephone PAV Multidisciplinary Oncology Clinic [address] [place], [place] [address] [place] [phone] Social History Tobacco Use Types Packs/Day Years [...] encounter Miscellaneous Notes * Telephone Encounter - Jolene [address], RD - 11/27/2022 1:31 PM EDT Reason for call: nutrition f/u Referral source: Radiation Oncology Call details: CARO familiar with pt, last nutrition counseling 11/14/22, sent Boost Plus to retail pharmacy per pt request 11/17/22. Continuing chemoradiation. Attempted to reach pt via phone; non-urgent voice messageleft for pt to return call r/t nutrition. RD avail prn in clinic. Pt returned RD phone call. States he has picked up Boost Plus and feels he is doing well with this and eating. Does note mucous production and is using recommended mouth wash. RD enc po fluid intake for thinning secretions. Pt voiced understanding, denies any needs at this time. Enc pt to reach outas needed, RD avail prn. documented in this encounter Plan of Treatment Upcoming Encounters Date Type Department Care Team ([facility] st Contact Info) Description 10/17/2024 8:00 AM EST Clinical Support Pav CC Head, Neck & Respiratory [address] [address] 10/17/2024 9:00 AM EST Appointment [facility] PET Scan 800 [place] [address] 10/17/2024 10:00 AM EST Appointment [facility] PET Scan 800 [place] [address] 10/17/2024 11:00 AM EST Office Visit Pav CC Head, Neck & Respiratory [address] [address] Juan Pablo Cee MD [address] [facility] [address] [place] [address] 10/17/2024 1:00 PM EST Clinical Support Pav CC Head, Neck & Respiratory [address] [address] 10/17/2024 2:20 PM EST Appointment PAV G Radiology [address] [place] [address] 10/20/2024 3:30 PM EST Office Visit Pav CC Head, Neck & Respiratory [address] [address] Germaine Alejandro MD [address] [place] [address] documented as of this encounter Visit Diagnoses Not on filedocumented in this encounter Additional Health Concerns Assessment Noted Time A fall risk assessment has been complete d for the patient 11/25/2022 12:52 PM EDT documented as of this encounter Care Teams Tinware Lithograph Press Operator Relationship Specialty Start Date End Date Manjit Gorman MD [address] [place], [place] [phone] PCP - General 09/23/22 Olegario Juarez MD [address] [place] [address] Consulting Physician Radiation Oncology 10/29/2207/05 documented as of this encounter
--- OUTSIDE RECORDS SUMMARY | 2024-07-27 06:56 | XMS_ITS | Encounter Summary ---
Author Organization [facility] Address [address] [place] [address] Care Team Providers Care Technology Services Manager Name Role Phone Manjit Gorman MD Primary Care Provider [phone] Olegario Juarez MD Unavailable [phone] Encounter Details Date Type Department Care Team (Late Contact Info) Description 11/26/2022 Orders Only PAV CC Radiation [address] [place] [address] Radiation Oncology, Physician, [address] [place], [place] [id number] Social History Tobacco Use Types Packs/Day Years [...] & Respiratory [address], [address] [place] [address] 10/17/2024 9:00 AM EST Appointment [facility] PET Scan 800 [place] [address] 10/17/2024 10:00 AM EST Appointment [facility] PET Scan 800 [place] [address] 10/17/2024 11:00 AM EST Office Visit Pav CC Head, Neck & Respiratory 800 [facility], 2nd [place] [address] Juan Pablo eCe MD [address] [facility] [address] [place] [address] 10/17/2024 1:00 PM EST Clinical Support Pav CC Head, Neck & Respiratory 800 [facility], [address]nd [place] [address] 10/17/2024 2:20 PM EST Appointment PAV G Radiology [address] [place] [address] 10/20/2024 3:30 PM EST Office Visit Pav CC Head, Neck & Respiratory 800 [facility], [address] [place] [address] Germaine Alejandro MD 800 [facility] [address] [place] [address] documented as of this encounter Procedures Procedure Name Priority Date/Time Associated Diagnosis Comments RAD ONC ARIA SESSION SUMMARY Routine 11/26/2022 1:51 PM EDT documented in this encounter Results * Rad Onc Aria Session Summary (11/26/2022 1:51 PM EDT) Course ID C1 ARIA RADIATION ONCOLOGY Course Intent Curative ARIA RADIATION ONCOLOGY Course Start Date 10/30/2022 3:11 PM ARIA RADIATION ONCOLOGY Course First Treatment Date 11/11/2022 11:30 AM ARIA RADIATION ONCOLOGY Course Last Treatment Date 11/26/2022 1:44 PM ARIA RADIATION ONCOLOGY Course Elapsed Days 15 ARIA RADIATION ONCOLOGY Reference Point ID RtOropharyn+Neck ARIA RADIATION ONCOLOGY Reference Point Dosage Given to Date 24 Gy ARIA RADIATION ONCOLOGY Reference Point Session Dosage Given 2 Gy ARIA RADIATION ONCOLOGY Plan ID RtOropharynx ARIA RADIATION ONCOLOGY Plan Name H&N ARIA RADIATION ONCOLOGY Plan Fractions Treated to Date 12 ARIA RADIATION ONCOLOGY Plan Total Fractions Prescribed 35 ARIA RADIATION ONCOLOGY Plan Prescribed Dose Per Fraction 2 Gy ARIA RADIATION ONCOLOGY Plan Total Prescribed Dose 7,000 CGy ARIA RADIATION ONCOLOGY Plan Primary Reference Point RtOropharyn+Neck ARIA RADIATION ONCOLOGY 11/26/2022 1:51 PM EDT Physician Radiation Oncology RADIATION ONCOLO GY ORDERABLES Final Result ARIA RADIATION ONCOLOGY documented in this encounter Visit Diagnoses Not on filedocumented in this encounter Additional Health Concerns Assessment Noted Time A fall risk assessment has been complete d for the patient 11/25/2022 12:52 PM EDT documented as of this encounter Care Teams Technology Services Manager Relationship Specialty Start Date End Date Manjit Gorman MD [address] [place] [address] PCP - General 09/23/22 Olegario Juarez MD [address] [address] Consulting Physician Radiation Oncology 10/29/2207/05 documented as of this encounter
--- OUTSIDE RECORDS SUMMARY | 2024-07-27 06:56 | XMS_ITS | Encounter Summary ---
Author Organization [facility] Address [address] [place] [address] Care Team Providers Care Electrical Helper Name Role Phone Manjit Gorman MD Primary Care Provider [phone] Olegario Juarez MD Unavailable [phone] Encounter Details Date Type Department Care Team (Late Contact Info) Description 11/21/2022 Orders Only PAV CC Radiation [id number] [place] [address] Radiation Oncology, Physician, [address] [place], [place] [id number] Social History Tobacco Use Types Packs/Day Years [...] & Respiratory [address], [address]nd [place] [address] 10/17/2024 9:00 AM EST Appointment [facility] PET Scan 800 [place] [address] 10/17/2024 10:00 AM EST Appointment [facility] PET Scan 800 [place] [address] 10/17/2024 11:00 AM EST Office Visit Pav CC Head, Neck & Respiratory 800 [facility], 2nd [place] [address] Juan Pablo Cee MD [address] [facility] [address] [place] [address] 10/17/2024 1:00 PM EST Clinical Support Pav CC Head, Neck & Respiratory 800 [facility], [address]nd [place] [address] 10/17/2024 2:20 PM EST Appointment PAV G Radiology [address] [place] [address] 10/20/2024 3:30 PM EST Office Visit Pav CC Head, Neck & Respiratory 800 [facility], [address] [place] [address] Germaine Alejandro MD 800 [facility] [address] [place] [address] documented as of this encounter Procedures Procedure Name Priority Date/Time Associated Diagnosis Comments RAD ONC ARIA SESSION SUMMARY Routine 11/21/2022 12:59 PM EDT documented in this encounter Results * Rad Onc Aria Session Summary (11/21/2022 12:59 PM EDT) Course ID C1 ARIA RADIATION ONCOLOGY Course Intent Curative ARIA RADIATION ONCOLOGY Course Start Date 10/30/2022 3:11 PM ARIA RADIATION ONCOLOGY Course First Treatment Date 11/11/2022 11:30 AM ARIA RADIATION ONCOLOGY Course Last Treatment Date 11/21/2022 12:52 PM ARIA RADIATION ONCOLOGY Course Elapsed Days 10 ARIA RADIATION ONCOLOGY Reference Point ID RtOropharyn+Neck ARIA RADIATION ONCOLOGY Reference Point Dosage Given to Date 18 Gy ARIA RADIATION ONCOLOGY Reference Point Session Dosage Given 2 Gy ARIA RADIATION ONCOLOGY Plan ID RtOropharynx ARIA RADIATION ONCOLOGY Plan Name H&N ARIA RADIATION ONCOLOGY Plan Fractions Treated to Date 9 ARIA RADIATION ONCOLOGY Plan Total Fractions Prescribed 35 ARIA RADIATION ONCOLOGY Plan Prescribed Dose Per Fraction 2 Gy ARIA RADIATION ONCOLOGY Plan Total Prescribed Dose 7,000 CGy ARIA RADIATION ONCOLOGY Plan Primary Reference Point RtOropharyn+Neck ARIA RADIATION ONCOLOGY 11/21/2022 12:5 9 PM EDT Physician Radiation Oncology RADIATION ONCOLO GY ORDERABLES Final Result ARIA RADIATION ONCOLOGY documented in this encounter Visit Diagnoses Not on filedocumented in this encounter Additional Health Concerns Assessment Noted Time A fall risk assessment has been complete d for the patient 11/18/2022 1:52 PM EDT documented as of this encounter Care Teams Electrical Helper Relationship Specialty Start Date End Date Manjit Gorman MD [address] [place] [address] PCP - General 09/23/22 Olegario Juarez MD [address] [address] Consulting Physician Radiation Oncology 10/29/2207/05 documented as of this encounter
--- OUTSIDE RECORDS SUMMARY | 2024-07-27 06:56 | XMS_ITS | Encounter Summary ---
Author Organization [facility] Address [address] [place] [id number] Care Team Providers Care Prop And Effects Designer Name Role Phone Manjit Gorman MD Primary Care Provider [phone] Olegario Juarez MD Unavailable [phone] Encounter Details Date Type Department Care Team (Latest Contact Info) Description 11/24/2022 4:35 AM EDT - 11/24/2022 1:36 PM EDT Hospital Encounter PAV CC Radiation [address] [place] [address] Discharge Disposition: Still a Patient Social History [...] by mouth 3 (three) times a day. 81001 mL 2 11/17/2022 3 dexamethasone (Decadron) 4 [...] Pav CC Head, Neck & Respiratory 800 [facility], 2nd [place] [address] 10/17/2024 9:00 AM EST Appointment [facility] PET Scan 800 [place] [address] 10/17/2024 10:00 AM EST Appointment [facility] PET Scan 800 [place] [address] 10/17/2024 11:00 AM EST Office Visit Pav CC Head, Neck & Respiratory 800 [facility], 2nd [place] [address] Juan Pablo Cee MD [address] [facility] [address] [place] [address] 10/17/2024 1:00 PM EST Clinical Support Pav CC Head, Neck & Respiratory 800 [facility], 2nd [place] [address] 10/17/2024 2:20 PM EST Appointment PAV G Radiology [address] [place] [address] 10/20/2024 3:30 PM EST Office Visit Pav CC Head, Neck & Respiratory 800 [facility], 2nd [place] [address] Germaine Alejandro MD 800 [facility] [address] [place] [address] documented as of this encounter Visit Diagnoses Not on filedocumented in this encounter Additional Health Concerns Assessment Noted Time A fall risk assessment has been complete d for the patient 11/18/2022 1:52 PM EDT documented as of this encounter Care Teams Prop And Effects Designer Relationship Specialty Start Date End Date Manjit Gorman MD [address] [place], [place] [phone] PCP - General 09/23/22 Olegario Juarez MD 800 [facility] [address] [place] [address] Consulting Physician Radiation Oncology 10/29/2207/05 documented as of this encounter
--- OUTSIDE RECORDS SUMMARY | 2024-07-27 06:56 | XMS_ITS | Encounter Summary ---
Author Organization [facility] Address [address] [place] [id number] Care Team Providers Care Light Coil Winder Name Role Phone Manjit Gorman MD Primary Care Provider [phone] Olegario Juarez MD Unavailable [phone] Encounter Details Date Type Department Care Team (Latest Contact Info) Description 11/28/2022 12:34 PM EDT - 11/28/2022 11:59 PM EDT Hospital Encounter PAV CC Radiation [address] [place] [address] Discharge Disposition: Still a Patient Social History [...] by mouth 3 (three) times a day. 36031 mL 2 11/17/2022 3 dexamethasone (Decadron) 4 [...] Head, Neck & Respiratory 800 [facility], 2nd [place] [address] 10/17/2024 9:00 AM EST Appointment [facility] PET Scan 800 [place] [address] 10/17/2024 10:00 AM EST Appointment [facility] PET Scan 800 [place] [address] 10/17/2024 11:00 AM EST Office Visit Pav CC Head, Neck & Respiratory [address] [facility], 2nd [place] [address] Juan Pablo Cee MD [address] [facility] [address] [place] [address] 10/17/2024 1:00 PM EST Clinical Support Pav CC Head, Neck & Respiratory [address] [facility], 2nd [place] [address] 10/17/2024 2:20 PM EST Appointment PAV G Radiology [address] [place] [address] 10/20/2024 3:30 PM EST Office Visit Pav CC Head, Neck & Respiratory [address] [facility], [address]nd [place] [address] Germaine Alejandro MD 800 [facility] [address] [place] [address] documented as of this encounter Visit Diagnoses Not on filedocumented in this encounter Additional Health Concerns Assessment Noted Time A fall risk assessment has been complete d for the patient 11/25/2022 12:52 PM EDT documented as of this encounter Care Teams Light Coil Winder Relationship Specialty Start Date End Date Manjit Gorman MD [address] [place], [place] [phone] PCP - General 09/23/22 Olegario Juarez MD [address] [facility] [address] [place] [address] Consulting Physician Radiation Oncology 10/29/2207/05 documented as of this encounter
--- OUTSIDE RECORDS SUMMARY | 2024-07-27 06:56 | XMS_ITS | Encounter Summary ---
Author Organization [facility] Address [address] [place] [address] Care Team Providers Care Sports Medicine Trainer Name Role Phone Manjit Gorman MD Primary Care Provider [phone] Olegario Juarez MD Unavailable [phone] Encounter Details Date Type Department Care Team (Latest Contact Info) Description 11/24/2022 Travel Social History Tobacco Use Types Packs/Day [...] Head, Neck & Respiratory 800 [facility], 2nd [place] [address] 10/17/2024 9:00 AM EST Appointment [facility] PET Scan 800 [place] [address] 10/17/2024 10:00 AM EST Appointment [facility] PET Scan 800 [place] [address] 10/17/2024 11:00 AM EST Office Visit Pav CC Head, Neck & Respiratory 800 [facility], 2nd [place] [address] Juan Pablo Cee MD [address] [facility] [address] [place] [address] 10/17/2024 1:00 PM EST Clinical Support Pav CC Head, Neck & Respiratory 800 [facility], 2nd [place] [address] 10/17/2024 2:20 PM EST Appointment PAV G Radiology [address] [place] [address] 10/20/2024 3:30 PM EST Office Visit Pav CC Head, Neck & Respiratory 800 [facility], [address] [place] [address] Germaine Alejandro MD [address] [place] [address] documented as of this encounter Visit Diagnoses Not on filedocumented in this encounter Additional Health Concerns Assessment Noted Time A fall risk assessment has been complete d for the patient 11/18/2022 1:52 PM EDT documented as of this encounter Care Teams Sports Medicine Trainer Relationship Specialty Start Date End Date Manjit Gorman MD [address] [place], [place] [phone] PCP - General 09/23/22 Olegario Juarez MD [address] [facility] [address] [place] [address] Consulting Physician Radiation Oncology 10/29/2207/05 documented as of this encounter
--- OUTSIDE RECORDS SUMMARY | 2024-07-27 06:56 | XMS_ITS | Encounter Summary ---
Author Organization [facility] Address [address] [place] [address] Care Team Providers Care Problem Manager Name Role Phone Manjit Gorman MD Primary Care Provider Olegario Juarez MD Unavailable [phone] Encounter Details Date Type Department Care Team (Late Contact Info) Description 11/20/2022 Orders Only [facility] Radiation [address] [place] [address] Radiation Oncology, Physician, [address] [place], [place] [id number] Social History Tobacco Use Types Packs/Day Years [...] & Respiratory [address], [address]nd [place] [phone] 10/17/2024 9:00 AM EST Appointment [facility] PET Scan 800 [place] [phone] 10/17/2024 10:00 AM EST Appointment [facility] PET Scan 800 [place] [address] 10/17/2024 11:00 AM EST Office Visit Pav CC Head, Neck & Respiratory 800 [facility], 2nd [place] [address] Juan Pablo Cee MD [address] [facility] [address] [place] [address] 10/17/2024 1:00 PM EST Clinical Support Pav CC Head, Neck & Respiratory 800 [facility], 2nd [place] [address] 10/17/2024 2:20 PM EST Appointment P[facility] G Radiology [address] [place] [address] 10/20/2024 3:30 PM EST Office Visit Pav CC Head, Neck & Respiratory 800 [facility], [address]nd [place] [address] Germaine Alejandro MD 800 [facility] [address] [place] [phone] documented as of this encounter Procedures Procedure Name Priority Date/Time Associated Diagnosis Comments RAD ONC ARIA SESSION SUMMARY Routine 11/20/2022 1:47 PM EDT documented in this encounter Results * Rad Onc Aria Session Summary (11/20/2022 1:47 PM EDT) Course ID C1 ARIA RADIATION ONCOLOGY Course Intent Curative ARIA RADIATION ONCOLOGY Course Start Date 10/30/2022 3:11 PM ARIA RADIATION ONCOLOGY Course First Treatment Date 11/11/2022 11:30 AM ARIA RADIATION ONCOLOGY Course Last Treatment Date 11/20/2022 1:41 PM ARIA RADIATION ONCOLOGY Course Elapsed Days 9 ARIA RADIATION ONCOLOGY Reference Point ID RtOropharyn+Neck ARIA RADIATION ONCOLOGY Reference Point Dosage Given to Date 16 Gy ARIA RADIATION ONCOLOGY Reference Point Session Dosage Given 2 Gy ARIA RADIATION ONCOLOGY Plan ID RtOropharynx ARIA RADIATION ONCOLOGY Plan Name H&N ARIA RADIATION ONCOLOGY Plan Fractions Treated to Date 8 ARIA RADIATION ONCOLOGY Plan Total Fractions Prescribed 35 ARIA RADIATION ONCOLOGY Plan Prescribed Dose Per Fraction 2 Gy ARIA RADIATION ONCOLOGY Plan Total Prescribed Dose 7,000 CGy ARIA RADIATION ONCOLOGY Plan Primary Reference Point RtOropharyn+Neck ARIA RADIATION ONCOLOGY 11/20/2022 1:47 PM EDT Physician Radiation Oncology RADIATION ONCOLO GY ORDERABLES Final Result ARIA RADIATION ONCOLOGY documented in this encounter Visit Diagnoses Not on filedocumented in this encounter Additional Health Concerns Assessment Noted Time A fall risk assessment has been complete d for the patient 11/18/2022 1:52 PM EDT documented as of this encounter Care Teams Problem Manager Relationship Specialty Start Date End Date Manjit Gorman MD [address] [place] [address] PCP - General 09/23/22 Olegario Juarez MD [address] [address] Consulting Physician Radiation Oncology 10/29/2207/05 documented as of this encounter
--- OUTSIDE RECORDS SUMMARY | 2024-07-27 06:56 | XMS_ITS | Encounter Summary ---
Author Organization [facility] Address [address] [place] [id number] Care Team Providers Care Plate Fitter Name Role Phone Manjit Gorman MD Primary Care Provider [phone] Olegario Juarez MD Unavailable [phone] Reason for Visit * Reason Comments Follow-up Encounter Details Date Type Department Care Team ([facility] st Contact Info) Description 11/18/2022 2:15 PM EDT Office Visit Pav CC Head, Neck & Respiratory [address], [address]nd [place] [address] Juan Pablo Cee MD [address] [facility] [address] [place] [address] Cancer of base of tongue [...] Sign Reading Time Taken Comments Blood Pressure 126/78 11/18/2022 1:52 PM EDT Pulse 60 11/18/2022 1:52 PM EDT Temperature 36.9 ??C (98.4 ??F) 11/18/2022 1:52 PM ED T Respiratory Rate 16 11/18/2022 1:52 PM EDT Oxygen Saturation 100% 11/18/2022 1:52 PM EDT Inhaled Oxygen Concentration - - Weight 80.3 kg (177 lb 0.5 oz) 11/18/2022 1:52 P M EDT Height 188 cm (6' 2 ) 11/18/2022 1:52 PM EDT Body Mass Index 22.73 11/18/2022 1:52 PM EDT documented in this encounter Miscellaneous Notes * Addendum Note - Denise Robins RN - 11/18/2022 2:15 PM EDTAddended by: DENISE ROBINS on: 11/18/2022 02:36 PM Modules accepted: Orders * Progress Notes - Juan Pablo Cee MD - 11/18/2022 2:15 PM EDT Mr. Erick Sierra is a very pleasant 72 y.o. patient who is returning to the clinic today for his follow-up. He was last seen in my clinic on 10/21/2022 and recommended a follow-up in 1 month. 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 He was kindly sent to my clinic [...] operating room on 10/09/2022 for direct laryngoscopy and biopsies and he was found to have a P 16 positive squamous cell carcinoma of the right base of tongue. He did well with biopsies and denied any complications. He was evaluated by Medical and Radiation Oncology at [facility]. He started his radiation treatment on11/11/2022 and chemotherapy on 11/14/2022. He did not have any complications from the treatments. The patient reported otalgia, denies otorrhea, hearing loss, vertigo or tinnitus. He denied having sinonasal symptoms, postnasal drip, epistaxis, nasal congestion/obstruction or anosmia/hyposmia. He also denied dysphagia, odynophagia, dysphonia, dyspepsia, dyspnea or reflux disease. The patient's complete review of system from 11/18/22 was performed today. All systems were negative [...] illicit drugs. PHYSICAL EXAMINATION: Visit Vitals BP 126/78 (BP Location: Right arm, Patient Position: Sitting) Pulse 60 Temp 36.9 ??C (98.4 ??F) (Oral) Ht 1.88 m (6' 2 [...] floor of mouth, tongue and palate unremarkable. There is tenderness and firmness along the right glossotonsillar sulcus. Oropharynx: Tonsils are surgically absent Neck: soft and supple. Right-sided cervical lymphadenopathy along the incision scar. Eyes: Extraocular movements are intact bilaterally. PERRLA. [...] 5- started radiation therapy 11/11/2022 and chemotherapy 11/14/2022 RECOMMENDATIONS: I discussed those findings with the patient. His clinical examination is stable and reveals a tumor of the right base of tongue metastatic to the right neck. He was recommended primary chemoradiation therapy and he started his radiation on 11/11/2022 and chemotherapy on 11/14/2022 and he is tolerating the treatment well. I recommended a follow up in my clinic in 2 months, sooner if has any problems or concerns. Juan Pablo Cee MD MS FACS [facility] Head & Neck Oncology Rhinology & Skull Base Surgery documented in this encounter Plan of Treatment Upcoming Encounters Date Type Department Care Team ([facility] st Contact Info) Description 10/17/2024 8:00 AM EST Clinical Support Pav [facility] Head, Neck & Respiratory [address] [address] 10/17/2024 9:00 AM EST Appointment [facility] PET Scan [address] [place] [address] 10/17/2024 10:00 AM EST Appointment [facility] PET Scan 800 [place] [address] 10/17/2024 11:00 AM EST Office Visit [facility] CC Head, Neck & Respiratory [address] [address] Juan Pablo Cee MD [address] [facility] [address] [place] [address] 10/17/2024 1:00 PM EST Clinical Support [facility] CC Head, Neck & Respiratory [address] [address] 10/17/2024 2:20 PM EST Appointment PAV G Radiology [address] [place] [address] 10/20/2024 3:30 PM EST Office Visit Pav CC Head, Neck & Respiratory [address] [address] Germaine Alejandro MD 800 [facility] [address] [place] [address] documented as of this encounter Visit Diagnoses Diagnosis 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 documented in this encounter Additional Health Concerns Assessment Noted Time A fall risk assessment has been complete d for the patient 11/18/2022 1:52 PM EDT documented as of this encounter Care Teams Plate Fitter Relationship Specialty Start Date End Date Manjit Gorman MD [address] [place] [address] PCP - General 09/23/22 Olegario Juarez MD [address] [address] Consulting Physician Radiation Oncology 10/29/2207/05 documented as of this encounter
--- OUTSIDE RECORDS SUMMARY | 2024-07-27 06:56 | XMS_ITS | Encounter Summary ---
Author Organization [facility] Address [address] [place] [address] Care Team Providers Care Rate Examiner Name Role Phone Manjit Gorman MD Primary Care Provider Olegario Juarez MD Unavailable [phone] Reason for Visit * Reason Comments OTV Encounter Details Date Type Department Care Team (Latest Contact Info) Description 11/25/2022 12:46 PM EDT - 11/25/2022 11:59 PM EDT Hospital Encounter [facility] Radiation 800 [facility] [id number] [place] [address] Olegario Juarez MD [address] [facility] [address] [place] [address] Cancer of base of tongue [...] Sign Reading Time Taken Comments Blood Pressure 135/76 11/25/2022 12:49 PM EDT Pulse 64 11/25/2022 12:49 PM EDT Temperature 36.6 ??C (97.8 ??F) 11/25/2022 1 2:49 PM EDT Respiratory Rate 16 11/25/2022 12:4 9 PM EDT Oxygen Saturation 100% 11/25/2022 12: 49 PM EDT Inhaled Oxygen Concentration - - Weight 78.8 kg (173 lb 11.6 oz) 023 12:49 PM EDT Height 188 cm (6' 2 ) 11/25/2022 12:49 PM EDT Body Mass Index 22.3 11/25/2022 12:49 PM EDT documented in this [...] by mouth 3 (three) times a day. 57614 mL 2 11/17/2022 3 dexamethasone (Decadron) 4 [...] encounter Miscellaneous Notes * Progress Notes - Meggan Kraus MD - 11/25/2022 1:15 PM EDT Patient Name: Erick Sierra Date of : 1950 72 y.o. Encounter Date: 11/25/2022 RESEARCH STUDY PATIENT: Yes: [] No: [x] Treatment Diagnosis: RIGHT base of tongue p16+ SCCa metastatic to RIGHT neck Cancer Staging Cancer of base of tongue (CMS/HCC) Staging form: Pharynx - HPV-Mediated Oropharynx, AJCC 8th Edition - Clinical stage from 10/29/2022: Stage I (cT2, cN1, cM0, p16+) - Signed by Germaine Alejandro MD on 11/10/2022 Vital Signs for this encounter: BSA: There is no height or weight on file to calculate BSA. Visit Vitals Smoking Status Never Physician Notes: [x] Reviewed chart and dosimetry - Current Dose - *see signed printed weekly treatment record [x] Reviewed treatment setup - Anticipated Dose - *see signed printed weekly treatment record [x] Reviewed port films or images - Examination of patient for evaluation and progress of treatment Asymptomatic Subjective Mr. Sierra presents today for his status check after completing fractions. His main complaint are his thickened secretions which is an unfortunate expected side effect of his radiation treatment. He denies any blood in the sputum. He reports using the mouthwash, but will plan to increase frequency to help with his secretions. He reports that his pain is well controlled, and he still has a decent appetite. Exam shows mucositis present in the soft palate region with erythema in the posterior oropharynx. No active bleeding or thrush were noted, dentition appears well. Overlying skin shows grade 1 erythema without desquamation. Neck is soft and supple to palpation without LAD. Assessment/Plan - We will continue RT as planned - Continue TOMASA Forte#1 Radiation Treatments Active Plans H&N [RtOropharynx] Most recent treatment: Dose planned: 200 cGy (fraction 11 on 11/25/2022) Total: Dose planned: 7,000 cGy (35 fractions) Elapsed Days: 14 Reference Points RtOropharyn+Neck Most recent treatment: Dose given: 200 cGy (on 11/25/2022) Total: Dose given: 2,200 cGy Elapsed Days: 14 Resident signature: MD NURA Reyes [facility] RADIATION 800 [facility] [address] Cosigned by Olegario Juarez MD at 11/26/2022 9:02 AM EDT Associated attestation - Olegario Juarez MD - 11/26/2022 9:02 AM EDT I saw and evaluated the patient with the resident. I discussed the case with the resident and agreewith the findings and plan as documented. documented in this encounter Plan of Treatment Upcoming Encounters Date Type Department Care Team (Late st Contact Info) Description 10/17/2024 8:00 AM EST Clinical Support Pav CC Head, Neck & Respiratory [address] [address] 10/17/2024 9:00 AM EST Appointment [facility] PET Scan 800 [place] [address] 10/17/2024 10:00 AM EST Appointment [facility] PET Scan 800 [place] [address] 10/17/2024 11:00 AM EST Office Visit Pav CC Head, Neck & Respiratory [address] [address] Juan Pablo Cee MD [address] [facility] [address] [place] [address] 10/17/2024 1:00 PM EST Clinical Support Pav CC Head, Neck & Respiratory 800 [facility], 2nd [place] [address] 10/17/2024 2:20 PM EST Appointment PAV G Radiology [address] [place] [address] 10/20/2024 3:30 PM EST Office Visit Pav CC Head, Neck & Respiratory 800 [facility], [address]nd [place] [address] Germaine Alejandro MD 800 [facility] [address] [place] [address] documented as of this encounter Visit Diagnoses Diagnosis Cancer of base of tongue (CMS/HCC)- Primary Malignant neoplasm of base of tongue documented in this encounter Additional Health Concerns Assessment Noted Time A fall risk assessment has been complete d for the patient 11/25/2022 12:52 PM EDT documented as of this encounter Care Teams Rate Examiner Relationship Specialty Start Date End Date Manjit Gorman MD [address] [place], [place] [id number] PCP - General 09/23/22 Olegario Juarez MD 800 [facility] [address] [place] [address] Consulting Physician Radiation Oncology 10/29/2207/05 documented as of this encounter
--- OUTSIDE RECORDS SUMMARY | 2024-07-27 06:56 | XMS_ITS | Encounter Summary ---
Author Organization Address [address] [place] [address] Care Team Providers Care Football Scout Name Role Phone Manjit Gorman MD Primary Care Provider [phone] Olegario Juarez MD Unavailable [phone] Encounter Details Date Type Department Care Team (Late Contact Info) Description 11/27/2022 Orders Only [facility] Radiation [address] [place] [address] Radiation Oncology, Physician, [address] [place], [place] [id number] Social History Tobacco Use Types Packs/Day Years [...] & Respiratory [address] [place] [address] 10/17/2024 9:00 AM EST Appointment [facility] PET Scan 800 [place] [address] 10/17/2024 10:00 AM EST Appointment [facility] PET Scan 800 [place] [address] 10/17/2024 11:00 AM EST Office Visit Pav CC Head, Neck & Respiratory 800 [facility], 2nd [place] [address] Juan Pablo Cee MD [address] [facility] [address] [place] [address] 10/17/2024 1:00 PM EST Clinical Support Pav CC Head, Neck & Respiratory 800 [facility], [address] [place] [address] 10/17/2024 2:20 PM EST Appointment PAV G Radiology [address] [place] [address] 10/20/2024 3:30 PM EST Office Visit Pav CC Head, Neck & Respiratory 800 [facility], [address] [place] [address] Germaine Alejandro MD 800 [facility] [address] [place] [address] documented as of this encounter Procedures Procedure Name Priority Date/Time Associated Diagnosis Comments RAD ONC ARIA SESSION SUMMARY Routine 11/27/2022 12:51 PM EDT documented in this encounter Results * Rad Onc Aria Session Summary (11/27/2022 12:51 PM EDT) Course ID C1 ARIA RADIATION ONCOLOGY Course Intent Curative ARIA RADIATION ONCOLOGY Course Start Date 10/30/2022 3:11 PM ARIA RADIATION ONCOLOGY Course First Treatment Date 11/11/2022 11:30 AM ARIA RADIATION ONCOLOGY Course Last Treatment Date 11/27/2022 12:44 PM ARIA RADIATION ONCOLOGY Course Elapsed Days 16 ARIA RADIATION ONCOLOGY Reference Point ID RtOropharyn+Neck ARIA RADIATION ONCOLOGY Reference Point Dosage Given to Date 26 Gy ARIA RADIATION ONCOLOGY Reference Point Session Dosage Given 2 Gy ARIA RADIATION ONCOLOGY Plan ID RtOropharynx ARIA RADIATION ONCOLOGY Plan Name H&N ARIA RADIATION ONCOLOGY Plan Fractions Treated to Date 13 ARIA RADIATION ONCOLOGY Plan Total Fractions Prescribed 35 ARIA RADIATION ONCOLOGY Plan Prescribed Dose Per Fraction 2 Gy ARIA RADIATION ONCOLOGY Plan Total Prescribed Dose 7,000 CGy ARIA RADIATION ONCOLOGY Plan Primary Reference Point RtOropharyn+Neck ARIA RADIATION ONCOLOGY 11/27/2022 12:5 1 PM EDT Physician Radiation Oncology RADIATION ONCOLO GY ORDERABLES Final Result ARIA RADIATION ONCOLOGY documented in this encounter Visit Diagnoses Not on filedocumented in this encounter Additional Health Concerns Assessment Noted Time A fall risk assessment has been complete d for the patient 11/25/2022 12:52 PM EDT documented as of this encounter Care Teams Football Scout Relationship Specialty Start Date End Date Manjit Gorman MD [address] [place] [address] PCP - General 09/23/22 Olegario Juarez MD [address] [address] Consulting Physician Radiation Oncology 10/29/2207/05 documented as of this encounter
--- OUTSIDE RECORDS SUMMARY | 2024-07-27 06:56 | XMS_ITS | Encounter Summary ---
Author Organization [facility] Address [address] [place] [id number] Care Team Providers Care Outside Dealer Sales Representative Name Role Phone Manjit Gorman MD Primary Care Provider [phone] Olegario Juarez MD Unavailable [phone] Encounter Details Date Type Department Care Team (Latest Contact Info) Description 11/26/2022 1:35 PM EDT - 11/26/2022 11:59 PM EDT Hospital Encounter [facility] Radiation [id number] [place] [address] Discharge Disposition: Still a Patient Social History [...] by mouth 3 (three) times a day. [address] mL 2 11/17/2022 3 dexamethasone (Decadron) 4 [...] Respiratory 800 [facility], 2nd [place] [address] 10/17/2024 9:00 AM EST Appointment [facility] PET Scan 800 [place] [address] 10/17/2024 10:00 AM EST Appointment [facility] PET Scan 800 [place] [address] 10/17/2024 11:00 AM EST Office Visit Pav CC Head, Neck & Respiratory 800 [facility], 2nd [place] [address] Juan Pablo Cee MD [address] [facility] [address] [place] [address] 10/17/2024 1:00 PM EST Clinical Support Pav CC Head, Neck & Respiratory 800 [facility], 2nd [place] [address] 10/17/2024 2:20 PM EST Appointment PAV G Radiology [address] [place] [address] 10/20/2024 3:30 PM EST Office Visit Pav CC Head, Neck & Respiratory 800 [facility], [address]nd [place] [address] Germaine Alejandro MD 800 [facility] [address] [place] [address] documented as of this encounter Visit Diagnoses Not on filedocumented in this encounter Additional Health Concerns Assessment Noted Time A fall risk assessment has been complete d for the patient 11/25/2022 12:52 PM EDT documented as of this encounter Care Teams Outside Dealer Sales Representative Relationship Specialty Start Date End Date Manjit Gorman MD [address] [place], [place] [id number] PCP - General 09/23/22 Olegario Juarez MD 800 [facility] [address] [place] [address] Consulting Physician Radiation Oncology 10/29/2207/05 documented as of this encounter
--- OUTSIDE RECORDS SUMMARY | 2024-07-27 06:56 | XMS_ITS | Encounter Summary ---
Author Organization [facility] Address [address] [place] [id number] Care Team Providers Care Glass Ribbon Machine Operator Assistant Name Role Phone Manjit Gorman MD Primary Care Provider [phone] Olegario Juarez MD Unavailable [phone] Encounter Details Date Type Department Care Team (Latest Contact Info) Description 11/25/2022 12:34 PM EDT - 11/25/2022 12:45 PM EDT Hospital Encounter [facility] Radiation [address] [place] [address] Discharge Disposition: Still a Patient Social History [...] by mouth 3 (three) times a day. [address] mL 2 11/17/2022 3 dexamethasone (Decadron) 4 [...] Pav CC Head, Neck & Respiratory 800 [facility], 2nd [place] [address] 10/17/2024 9:00 AM EST Appointment [facility] PET Scan 800 [place] [address] 10/17/2024 10:00 AM EST Appointment [facility] PET Scan 800 [place] [address] 10/17/2024 11:00 AM EST Office Visit Pav CC Head, Neck & Respiratory 800 [facility], [address]nd [place] [address] Juan Pablo Cee MD [address] [facility] [address] [place] [address] 10/17/2024 1:00 PM EST Clinical Support Pav CC Head, Neck & Respiratory 800 [facility], [address]nd [place] [address] 10/17/2024 2:20 PM EST Appointment PAV G Radiology [address] [place] [address] 10/20/2024 3:30 PM EST Office Visit Pav CC Head, Neck & Respiratory 800 [facility], 2nd [place] [address] Germaine Alejandro MD 800 [facility] [address] [place] [address] documented as of this encounter Visit Diagnoses Not on filedocumented in this encounter Additional Health Concerns Assessment Noted Time A fall risk assessment has been complete d for the patient 11/25/2022 12:52 PM EDT documented as of this encounter Care Teams Glass Ribbon Machine Operator Assistant Relationship Specialty Start Date End Date Manjit Gorman MD [address] [place], [place] [phone] PCP - General 09/23/22 Olegario Juarez MD 800 [facility] [address] [place] [address] Consulting Physician Radiation Oncology 10/29/2207/05 documented as of this encounter
--- OUTSIDE RECORDS SUMMARY | 2024-07-27 06:56 | XMS_ITS | Encounter Summary ---
Author Organization [facility] Address [address] [place] [address] Care Team Providers Care Movie Producer Name Role Phone Manjit Gorman MD Primary Care Provider [phone] Olegario Juarez MD Unavailable [phone] Encounter Details Date Type Department Care Team (Late st Contact Info) Description 11/17/2022 Orders Only [facility] [address] [place], [place] [id number] [place] [address] Social History Tobacco Use Types Packs/Day Years [...] AM EST documented as of this encounter Miscellaneous Notes * Clinician Note - Jol[address] RD - 11/17/2022 4:24 PM EDT Pt contacted RD to request Colin Plus as discussed at last visit. Sent to [facility] pharmacy. documented in this encounter Plan of Treatment Upcoming Encounters Date Type Department Care Team (Late st Contact Info) Description 10/17/2024 8:00 AM EST Clinical Support Pav CC Head, Neck & Respiratory [address] [phone] 10/17/2024 9:00 AM EST Appointment [facility] PET Scan 800 [place] [address] 10/17/2024 10:00 AM EST Appointment [facility] PET Scan 800 [place] [address] 10/17/2024 11:00 AM EST Office Visit Pav [facility] Head, Neck & Respiratory [address] [phone] Juan Pablo Cee MD [address] [facility] [address] [place] [address] 10/17/2024 1:00 PM EST Clinical Support Pav [facility] Head, Neck & Respiratory [address] [address] 10/17/2024 2:20 PM EST Appointment PAV G Radiology [address] [place] [address] 10/20/2024 3:30 PM EST Office Visit [facility] Head, Neck & Respiratory [address] [place] [address] Germaine Alejandro MD 800 [facility] [address] [place] [address] documented as of this encounter Visit Diagnoses Not on filedocumented in this encounter Additional Health Concerns Assessment Noted Time A fall risk assessment has been complete d for the patient 11/14/2022 9:25 AM EST documented as of this encounter Care Teams Movie Producer Relationship Specialty Start Date End Date Manjit Gorman MD [address] [place] [address] PCP - General 09/23/22 Olegario Juarez MD [address] [address] Consulting Physician Radiation Oncology 10/29/2207/05 documented as of this encounter
--- OUTSIDE RECORDS SUMMARY | 2024-07-27 06:56 | XMS_ITS | Encounter Summary ---
Author Organization [facility] Address [address] [id number] Care Team Providers Care Risk Consulting Treasury Director Name Role Phone Manjit Gorman MD Primary Care Provider [phone] Olegario Juarez MD Unavailable [phone] Encounter Details Date Type Department Care Team (Latest Contact Info) Description 11/20/2022 1:32 PM EDT - 11/20/2022 11:59 PM EDT Hospital Encounter [facility] CC Radiation [id number] [place] [address] Discharge Disposition: Still a Patient Social History [...] by mouth 3 (three) times a day. 99591 mL 2 11/17/2022 3 dexamethasone (Decadron) 4 [...] Head, Neck & Respiratory 800 [facility], [address]nd [place] [address] 10/17/2024 9:00 AM EST Appointment [facility] PET Scan 800 [place] [address] 10/17/2024 10:00 AM EST Appointment [facility] PET Scan 800 [place] [address] 10/17/2024 11:00 AM EST Office Visit Pav CC Head, Neck & Respiratory 800 [facility], 2nd [place] [address] Juan Pablo Cee MD [address] [facility] [address] [place] [address] 10/17/2024 1:00 PM EST Clinical Support Pav CC Head, Neck & Respiratory 800 [facility], 2nd [place] [address] 10/17/2024 2:20 PM EST Appointment PAV G Radiology [address] [place] [address] 10/20/2024 3:30 PM EST Office Visit Pav CC Head, Neck & Respiratory 800 [facility], 2nd [place] [address] Germaine Alejandro MD 800 [facility] [address] [facility] [address] [place] [address] documented as of this encounter Visit Diagnoses Not on filedocumented in this encounter Additional Health Concerns Assessment Noted Time A fall risk assessment has been complete d for the patient 11/18/2022 1:52 PM EDT documented as of this encounter Care Teams Risk Consulting Treasury Director Relationship Specialty Start Date End Date Manjit Gorman MD [address] [place], [place] [phone] PCP - General 09/23/22 Olegario Juarez MD 800 [facility] [address] [place] [address] Consulting Physician Radiation Oncology 10/29/2207/05 documented as of this encounter
--- OUTSIDE RECORDS SUMMARY | 2024-07-27 06:56 | XMS_ITS | Encounter Summary ---
Author Organization [facility] Address [address] [place] [address] [id number] Care Team Providers Care Counter Maker Name Role Phone Manjit Gorman MD Primary Care Provider [phone] Olegario Juarez MD Unavailable [phone] Encounter Details Date Type Department Care Team (Latest Contact Info) Description 11/18/2022 12:45 PM EDT - 11/18/2022 12:59 PM EDT Hospital Encounter [facility] CC Radiation [id number] [place] [address] Discharge Disposition: Still a Patient Social History [...] AM EST documented as of this encounter Medications at [...] by mouth 3 (three) times a day. 13779 mL 2 11/17/2022 3 dexamethasone (Decadron) 4 [...] 800 [facility], 2nd [place] [address] 10/17/2024 9:00 AM EST Appointment [facility] PET Scan 800 [place] [address] 10/17/2024 10:00 AM EST Appointment [facility] PET Scan 800 [place] [address] 10/17/2024 11:00 AM EST Office Visit Pav CC Head, Neck & Respiratory 800 [facility], 2nd [place] [address] Juan Pablo Cee MD [address] [facility] [address] [place] [address] 10/17/2024 1:00 PM EST Clinical Support Pav CC Head, Neck & Respiratory 800 [facility], 2nd [place] [address] 10/17/2024 2:20 PM EST Appointment P[facility] G Radiology [address] [place] [address] 10/20/2024 3:30 PM EST Office Visit Pav CC Head, Neck & Respiratory 800 [facility], [address] [place] [address] Germaine Alejandro MD 800 [facility] [address] [place] [address] documented as of this encounter Visit Diagnoses Not on filedocumented in this encounter Additional Health Concerns Assessment Noted Time A fall risk assessment has been complete d for the patient 11/18/2022 1:52 PM EDT documented as of this encounter Care Teams Counter Maker Relationship Specialty Start Date End Date Manjit Gorman MD [address] [place], [place] [phone] PCP - General 09/23/22 Olegario Juarez MD 800 [facility] [address] [place] [address] Consulting Physician Radiation Oncology 10/29/2207/05 documented as of this encounter
--- OUTSIDE RECORDS SUMMARY | 2024-07-27 06:56 | XMS_ITS | Encounter Summary ---
Author Organization [facility] Address [address] [id number] Care Team Providers Care Mri Specialist Name Role Phone Manjit Gorman MD Primary Care Provider [phone] Olegario Juarez MD Unavailable [phone] Encounter Details Date Type Department Care Team (Latest Contact Info) Description 11/27/2022 12:34 PM EDT - 11/27/2022 11:59 PM EDT Hospital Encounter [facility] CC Radiation [id number] [place] [address] Discharge Disposition: Still a Patient Social History [...] by mouth 3 (three) times a day. [address] mL 2 11/17/2022 3 dexamethasone (Decadron) 4 [...] Respiratory 800 [facility], 2nd [place] [address] 10/17/2024 9:00 AM EST Appointment [facility] PET Scan 800 [place] [address] 10/17/2024 10:00 AM EST Appointment [facility] PET Scan 800 [place] [address] 10/17/2024 11:00 AM EST Office Visit Pav CC Head, Neck & Respiratory 800 [facility], 2nd [place] [address] Juan Pablo Cee MD [address] [facility] [address] [place] [address] 10/17/2024 1:00 PM EST Clinical Support Pav CC Head, Neck & Respiratory 800 [facility], 2nd [place] [address] 10/17/2024 2:20 PM EST Appointment P[facility] G Radiology [address] [place] [address] 10/20/2024 3:30 PM EST Office Visit Pav CC Head, Neck & Respiratory 800 [facility], 2nd [place] [address] Germaine Alejandro MD 800 [facility] [address] [place] [address] documented as of this encounter Visit Diagnoses Not on filedocumented in this encounter Additional Health Concerns Assessment Noted Time A fall risk assessment has been complete d for the patient 11/25/2022 12:52 PM EDT documented as of this encounter Care Teams Mri Specialist Relationship Specialty Start Date End Date Manjit Gorman MD [address] [place], [place] [phone] PCP - General 09/23/22 Olegario Juarez MD 800 [facility] [address] [place] [address] Consulting Physician Radiation Oncology 10/29/2207/05 documented as of this encounter
--- OUTSIDE RECORDS SUMMARY | 2024-07-27 06:56 | XMS_ITS | Encounter Summary ---
Author Organization [facility] Address [address] [id number] Care Team Providers Care Lion Trainer Name Role Phone Manjit Gorman MD Primary Care Provider [phone] Olegario Juarez MD Unavailable [phone] Encounter Details Date Type Department Care Team (Latest Contact Info) Description 11/24/2022 1:37 PM EDT - 11/24/2022 11:59 PM EDT Hospital Encounter [facility] CC Radiation [id number] [place] [address] Discharge Disposition: Still a Patient Social History [...] by mouth 3 (three) times a day. 48184 mL 2 11/17/2022 3 dexamethasone (Decadron) 4 [...] CC Head, Neck & Respiratory 800 [facility], 2nd [place] [address] 10/17/2024 9:00 AM EST Appointment [facility] PET Scan 800 [place] [address] 10/17/2024 10:00 AM EST Appointment [facility] PET Scan 800 [place] [address] 10/17/2024 11:00 AM EST Office Visit Pav CC Head, Neck & Respiratory [address] [facility], 2nd [place] [address] Juan Pablo Cee MD [address] [facility] [address] [place] [address] 10/17/2024 1:00 PM EST Clinical Support Pav CC Head, Neck & Respiratory [address] [facility], 2nd [place] [address] 10/17/2024 2:20 PM EST Appointment PAV G Radiology [address] [place] [address] 10/20/2024 3:30 PM EST Office Visit Pav CC Head, Neck & Respiratory [address] [facility], 2nd [place] [address] Germaine Alejandro MD [address] [facility] [address] [place] [address] documented as of this encounter Visit Diagnoses Not on filedocumented in this encounter Additional Health Concerns Assessment Noted Time A fall risk assessment has been complete d for the patient 11/18/2022 1:52 PM EDT documented as of this encounter Care Teams Lion Trainer Relationship Specialty Start Date End Date Manjit Gorman MD [address] [place], [place] [phone] PCP - General 09/23/22 Olegario Juarez MD [address] [facility] [address] [place] [address] Consulting Physician Radiation Oncology 10/29/2207/05 documented as of this encounter
--- OUTSIDE RECORDS SUMMARY | 2024-07-27 06:56 | XMS_ITS | Encounter Summary ---
Author Organization [facility] Address [address] [id number] Care Team Providers Care Integrity Specialist Name Role Phone Manjit Gorman MD Primary Care Provider [phone] Olegario Juarez MD Unavailable [phone] Encounter Details Date Type Department Care Team (Latest Contact Info) Description 11/17/2022 12:28 PM EDT - 11/17/2022 11:59 PM EDT Hospital Encounter P[facility] CC Radiation [id number] [place] [address] Discharge Disposition: Still a Patient Social History [...] by mouth 3 (three) times a day. 75663 mL 2 11/17/2022 3 dexamethasone (Decadron) 4 [...] Respiratory 800 [facility], 2nd [place] [address] 10/17/2024 9:00 AM EST Appointment [facility] PET Scan 800 [place] [address] 10/17/2024 10:00 AM EST Appointment [facility] PET Scan 800 [place] [address] 10/17/2024 11:00 AM EST Office Visit Pav CC Head, Neck & Respiratory 800 [facility], 2nd [place] [address] Juan Pablo Cee MD [address] [facility] [address] [place] [address] 10/17/2024 1:00 PM EST Clinical Support Pav CC Head, Neck & Respiratory 800 [facility], 2nd [place] [address] 10/17/2024 2:20 PM EST Appointment PAV G Radiology [address] [place] [address] 10/20/2024 3:30 PM EST Office Visit Pav CC Head, Neck & Respiratory 800 [facility], [address] [place] [address] Germaine Alejandro MD 800 [facility] [address] [facility] [place] [address] documented as of this encounter Visit Diagnoses Not on filedocumented in this encounter Additional Health Concerns Assessment Noted Time A fall risk assessment has been complete d for the patient 11/14/2022 9:25 AM EST documented as of this encounter Care Teams Integrity Specialist Relationship Specialty Start Date End Date Manjit Gorman MD [address] [place], [place] [phone] PCP - General 09/23/22 Olegario Juarez MD 800 [facility] [address] [place] [address] Consulting Physician Radiation Oncology 10/29/2207/05 documented as of this encounter
--- OUTSIDE RECORDS SUMMARY | 2024-07-27 06:56 | XMS_ITS | Encounter Summary ---
Author Organization [facility] Address [address] [place] [address] Care Team Providers Care Agile Coach Name Role Phone Manijt Gorman MD Primary Care Provider [phone] Olegario Juarez MD Unavailable [phone] Encounter Details Date Type Department Care Team (Late Contact Info) Description 11/19/2022 Orders Only [facility] CC Radiation [address] [place] [address] Radiation Oncology, Physician, [address] [place], [place] [phone] Social History Tobacco Use Types Packs/Day Years [...] & Respiratory [address], [address] [place] [address] 10/17/2024 9:00 AM EST Appointment [facility] PET Scan 800 [place] [address] 10/17/2024 10:00 AM EST Appointment [facility] PET Scan 800 [place] [address] 10/17/2024 11:00 AM EST Office Visit Pav CC Head, Neck & Respiratory 800 [facility], 2nd [place] [address] Juan Pablo Cee MD [address] [facility] [address] [place] [address] 10/17/2024 1:00 PM EST Clinical Support Pav CC Head, Neck & Respiratory 800 [facility], [address] [place] [address] 10/17/2024 2:20 PM EST Appointment PAV G Radiology [address] [place] [address] 10/20/2024 3:30 PM EST Office Visit Pav CC Head, Neck & Respiratory 800 [facility], [address] [place] [address] Germaine Alejandro MD 800 [facility] [address] [place] [address] documented as of this encounter Procedures Procedure Name Priority Date/Time Associated Diagnosis Comments RAD ONC ARIA SESSION SUMMARY Routine 11/19/2022 2:06 PM EDT documented in this encounter Results * Rad Onc Aria Session Summary (11/19/2022 2:06 PM EDT) Course ID C1 ARIA RADIATION ONCOLOGY Course Intent Curative ARIA RADIATION ONCOLOGY Course Start Date 10/30/2022 3:11 PM ARIA RADIATION ONCOLOGY Course First Treatment Date 11/11/2022 11:30 AM ARIA RADIATION ONCOLOGY Course Last Treatment Date 11/19/2022 2:00 PM ARIA RADIATION ONCOLOGY Course Elapsed Days 8 ARIA RADIATION ONCOLOGY Reference Point ID RtOropharyn+Neck ARIA RADIATION ONCOLOGY Reference Point Dosage Given to Date 14 Gy ARIA RADIATION ONCOLOGY Reference Point Session Dosage Given 2 Gy ARIA RADIATION ONCOLOGY Plan ID RtOropharynx ARIA RADIATION ONCOLOGY Plan Name H&N ARIA RADIATION ONCOLOGY Plan Fractions Treated to Date 7 ARIA RADIATION ONCOLOGY Plan Total Fractions Prescribed 35 ARIA RADIATION ONCOLOGY Plan Prescribed Dose Per Fraction 2 Gy ARIA RADIATION ONCOLOGY Plan Total Prescribed Dose 7,000 CGy ARIA RADIATION ONCOLOGY Plan Primary Reference Point RtOropharyn+Neck ARIA RADIATION ONCOLOGY 11/19/2022 2:06 PM EDT Physician Radiation Oncology RADIATION ONCOLO GY ORDERABLES Final Result ARIA RADIATION ONCOLOGY documented in this encounter Visit Diagnoses Not on filedocumented in this encounter Additional Health Concerns Assessment Noted Time A fall risk assessment has been complete d for the patient 11/18/2022 1:52 PM EDT documented as of this encounter Care Teams Agile Coach Relationship Specialty Start Date End Date Manjit Gorman MD [address] [place] [address] PCP - General 09/23/22 Olegario Juarez MD [address] [address] Consulting Physician Radiation Oncology 10/29/2207/05 documented as of this encounter
--- OUTSIDE RECORDS SUMMARY | 2024-07-27 06:56 | XMS_ITS | Encounter Summary ---
Author Organization [facility] Address [address] [place] [address] [id number] Care Team Providers Care Juice Weigher Name Role Phone Manjit Gorman MD Primary Care Provider [phone] Olegario Juarez MD Unavailable [phone] Encounter Details Date Type Department Care Team (Latest Contact Info) Description 11/17/2022 4:35 AM EDT - 11/17/2022 12:27 PM EDT Hospital Encounter PAV CC Radiation [address] [place] [address] Discharge Disposition: Still a Patient Social History [...] Pav CC Head, Neck & Respiratory [address] [address] 10/17/2024 9:00 AM EST Appointment [facility] PET Scan 800 [place] [address] 10/17/2024 10:00 AM EST Appointment [facility] PET Scan 800 [place] [address] 10/17/2024 11:00 AM EST Office Visit Pav CC Head, Neck & Respiratory 800 [facility] 2nd [place] [address] Juan Pablo Cee MD [address] [facility] [address] [place] [address] 10/17/2024 1:00 PM EST Clinical Support Pav CC Head, Neck & Respiratory 800 [facility], 2nd [place] [address] 10/17/2024 2:20 PM EST Appointment PAV G Radiology [address] [place] [address] 10/20/2024 3:30 PM EST Office Visit Pav CC Head, Neck & Respiratory 800 [facility], 2nd [place] [address] Germaine Alejandro MD 800 [facility] [address] [place] [address] documented as of this encounter Visit Diagnoses Not on filedocumented in this encounter Additional Health Concerns Assessment Noted Time A fall risk assessment has been complete d for the patient 11/14/2022 9:25 AM EST documented as of this encounter Care Teams Juice Weigher Relationship Specialty Start Date End Date Manjit Gorman MD [address] [place], [place] [phone] PCP - General 09/23/22 Olegario Juarez MD 800 [facility] [address] [place] [address] Consulting Physician Radiation Oncology 10/29/2207/05 documented as of this encounter
--- OUTSIDE RECORDS SUMMARY | 2024-07-27 06:56 | XMS_ITS | Encounter Summary ---
Author Organization [facility] Address [address] [place] [address] Care Team Providers Care Grain Elevator Motor Starter Name Role Phone Manjit Gorman MD Primary Care Provider [phone] Olegario Juarez MD Unavailable [phone] Encounter Details Date Type Department Care Team (Late Contact Info) Description 11/25/2022 Orders Only PAV CC Radiation [id number] [place] [address] Radiation Oncology, Physician, [address] [place], [place] [address] Social History Tobacco Use Types Packs/Day Years [...] & Respiratory [address], [address] [place] [address] 10/17/2024 9:00 AM EST Appointment [facility] PET Scan 800 [place] [address] 10/17/2024 10:00 AM EST Appointment [facility] PET Scan 800 [place] [address] 10/17/2024 11:00 AM EST Office Visit Pav CC Head, Neck & Respiratory 800 [facility], 2nd [place] [address] Juan Pablo Cee MD [address] [facility] [address] [place] [address] 10/17/2024 1:00 PM EST Clinical Support Pav CC Head, Neck & Respiratory 800 [facility], [address] [place] [address] 10/17/2024 2:20 PM EST Appointment PAV G Radiology [address] [place] [address] 10/20/2024 3:30 PM EST Office Visit Pav CC Head, Neck & Respiratory 800 [facility], [address] [place] [address] Germaine Alejandro MD 800 [facility] [address] [facility] [address] [place] [address] documented as of this encounter Procedures Procedure Name Priority Date/Time Associated Diagnosis Comments RAD ONC ARIA SESSION SUMMARY Routine 11/25/2022 12:49 PM EDT documented in this encounter Results * Rad Onc Aria Session Summary (11/25/2022 12:49 PM EDT) Course ID C1 ARIA RADIATION ONCOLOGY Course Intent Curative ARIA RADIATION ONCOLOGY Course Start Date 10/30/2022 3:11 PM ARIA RADIATION ONCOLOGY Course First Treatment Date 11/11/2022 11:30 AM ARIA RADIATION ONCOLOGY Course Last Treatment Date 11/25/2022 12:43 PM ARIA RADIATION ONCOLOGY Course Elapsed Days 14 ARIA RADIATION ONCOLOGY Reference Point ID RtOropharyn+Neck ARIA RADIATION ONCOLOGY Reference Point Dosage Given to Date 22 Gy ARIA RADIATION ONCOLOGY Reference Point Session Dosage Given 2 Gy ARIA RADIATION ONCOLOGY Plan ID RtOropharynx ARIA RADIATION ONCOLOGY Plan Name H&N ARIA RADIATION ONCOLOGY Plan Fractions Treated to Date 11 ARIA RADIATION ONCOLOGY Plan Total Fractions Prescribed 35 ARIA RADIATION ONCOLOGY Plan Prescribed Dose Per Fraction 2 Gy ARIA RADIATION ONCOLOGY Plan Total Prescribed Dose 7,000 CGy ARIA RADIATION ONCOLOGY Plan Primary Reference Point RtOropharyn+Neck ARIA RADIATION ONCOLOGY 11/25/2022 12:4 9 PM EDT Physician Radiation Oncology RADIATION ONCOLO GY ORDERABLES Final Result ARIA RADIATION ONCOLOGY documented in this encounter Visit Diagnoses Not on filedocumented in this encounter Additional Health Concerns Assessment Noted Time A fall risk assessment has been complete d for the patient 11/25/2022 12:52 PM EDT documented as of this encounter Care Teams Grain Elevator Motor Starter Relationship Specialty Start Date End Date Manjit Gorman MD [address] [place] [address] PCP - General 09/23/22 Olegario Juarez MD [address] [address] Consulting Physician Radiation Oncology 10/29/2207/05 documented as of this encounter
--- OUTSIDE RECORDS SUMMARY | 2024-07-27 06:56 | XMS_ITS | Encounter Summary ---
Author Organization [facility] Address [address] [place] [address] Care Team Providers Care Performance Management Consultant Name Role Phone Manjit Gorman MD Primary Care Provider Olegario Juarez MD Unavailable [phone] Encounter Details Date Type Department Care Team (Late Contact Info) Description 11/18/2022 Orders Only [facility] Radiation [address] [place] [address] Radiation Oncology, Physician, [address] [place], [place] [id number] Social History Tobacco Use Types Packs/Day Years [...] & Respiratory [address], [address]nd [place] [address] 10/17/2024 9:00 AM EST Appointment [facility] PET Scan 800 [place] [address] 10/17/2024 10:00 AM EST Appointment [facility] PET Scan 800 [place] [address] 10/17/2024 11:00 AM EST Office Visit Pav CC Head, Neck & Respiratory 800 [facility], [address]nd [place] [address] Juan Pablo Cee MD [address] [facility] [address] [place] [phone] 10/17/2024 1:00 PM EST Clinical Support Pav CC Head, Neck & Respiratory 800 [facility], [address]nd [place] [address] 10/17/2024 2:20 PM EST Appointment PAV G Radiology [address] [place] [address] 10/20/2024 3:30 PM EST Office Visit Pav CC Head, Neck & Respiratory 800 [facility], [address] [place] [address] Germaine Alejandro MD 800 [facility] [address] [place] [address] documented as of this encounter Procedures Procedure Name Priority Date/Time Associated Diagnosis Comments RAD ONC ARIA SESSION SUMMARY Routine 11/18/2022 1:15 PM EDT documented in this encounter Results * Rad Onc Aria Session Summary (11/18/2022 1:15 PM EDT) Course ID C1 ARIA RADIATION ONCOLOGY Course Intent Curative ARIA RADIATION ONCOLOGY Course Start Date 10/30/2022 3:11 PM ARIA RADIATION ONCOLOGY Course First Treatment Date 11/11/2022 11:30 AM ARIA RADIATION ONCOLOGY Course Last Treatment Date 11/18/2022 1:09 PM ARIA RADIATION ONCOLOGY Course Elapsed Days 7 ARIA RADIATION ONCOLOGY Reference Point ID RtOropharyn+Neck ARIA RADIATION ONCOLOGY Reference Point Dosage Given to Date 12 Gy ARIA RADIATION ONCOLOGY Reference Point Session Dosage Given 2 Gy ARIA RADIATION ONCOLOGY Plan ID RtOropharynx ARIA RADIATION ONCOLOGY Plan Name H&N ARIA RADIATION ONCOLOGY Plan Fractions Treated to Date 6 ARIA RADIATION ONCOLOGY Plan Total Fractions Prescribed 35 ARIA RADIATION ONCOLOGY Plan Prescribed Dose Per Fraction 2 Gy ARIA RADIATION ONCOLOGY Plan Total Prescribed Dose 7,000 CGy ARIA RADIATION ONCOLOGY Plan Primary Reference Point RtOropharyn+Neck ARIA RADIATION ONCOLOGY 11/18/2022 1:15 PM EDT Physician Radiation Oncology RADIATION ONCOLO GY ORDERABLES Final Result ARIA RADIATION ONCOLOGY documented in this encounter Visit Diagnoses Not on filedocumented in this encounter Additional Health Concerns Assessment Noted Time A fall risk assessment has been complete d for the patient 11/18/2022 1:52 PM EDT documented as of this encounter Care Teams Performance Management Consultant Relationship Specialty Start Date End Date Manjit Gorman MD [address] [place] [address] PCP - General 09/23/22 Olegario Juarez MD [address] [address] Consulting Physician Radiation Oncology 10/29/2207/05 documented as of this encounter
--- OUTSIDE RECORDS SUMMARY | 2024-07-27 06:57 | XMS_ITS | Encounter Summary ---
Author Organization [facility] Address [address] [place] [address] Care Team Providers Care Welfare Case Worker Name Role Phone Manjit Gorman MD Primary Care Provider [phone] Olegario Juarez MD Unavailable [phone] Encounter Details Date Type Department Care Team (Late Contact Info) Description 11/13/2022 Orders Only [facility] Radiation [address]19[address] [place] [address] Radiation Oncology, Physician, [address] [place], [place] [id number] Social History Tobacco Use Types Packs/Day Years [...] suspected to have Coronavirus/COVID-19? No / Unsure 11/12/2022 6:56 AM EST documented as of this encounter Plan of Treatment Upcoming Encounters Date Type Department Care Team (Late st Contact Info) Description 10/17/2024 8:00 AM EST Clinical Support Pav CC Head, Neck & Respiratory [address] 2nd [place] [address] 10/17/2024 9:00 AM EST Appointment [facility] PET Scan 800 [place] [address] 10/17/2024 10:00 AM EST Appointment [facility] PET Scan 800 [place] [address] 10/17/2024 11:00 AM EST Office Visit Pav CC Head, Neck & Respiratory 800 [facility], [address]nd [place] [address] Juan Pablo Cee MD [address] [facility] [address] [place] [address] 10/17/2024 1:00 PM EST Clinical Support Pav CC Head, Neck & Respiratory 800 [facility], [address]nd [place] [address] 10/17/2024 2:20 PM EST Appointment P[facility] G Radiology [address] [place] [address] 10/20/2024 3:30 PM EST Office Visit Pav CC Head, Neck & Respiratory 800 [facility], [address]nd [place] [address] Germaine Alejandro MD 800 [facility] [address] [place] [phone] documented as of this encounter Procedures Procedure Name Priority Date/Time Associated Diagnosis Comments RAD ONC ARIA SESSION SUMMARY Routine 11/13/2022 1:53 PM EST documented in this encounter Results * Rad Onc Aria Session Summary (11/13/2022 1:53 PM EST) Course ID C1 ARIA RADIATION ONCOLOGY Course Intent Curative ARIA RADIATION ONCOLOGY Course Start Date 10/30/2022 3:11 PM ARIA RADIATION ONCOLOGY Course First Treatment Date 11/11/2022 11:30 AM ARIA RADIATION ONCOLOGY Course Last Treatment Date 11/13/2022 1:48 PM ARIA RADIATION ONCOLOGY Course Elapsed Days 2 ARIA RADIATION ONCOLOGY Reference Point ID RtOropharyn+Neck ARIA RADIATION ONCOLOGY Reference Point Dosage Given to Date 6 Gy ARIA RADIATION ONCOLOGY Reference Point Session Dosage Given 2 Gy ARIA RADIATION ONCOLOGY Plan ID RtOropharynx ARIA RADIATION ONCOLOGY Plan Name H&N ARIA RADIATION ONCOLOGY Plan Fractions Treated to Date 3 ARIA RADIATION ONCOLOGY Plan Total Fractions Prescribed 35 ARIA RADIATION ONCOLOGY Plan Prescribed Dose Per Fraction 2 Gy ARIA RADIATION ONCOLOGY Plan Total Prescribed Dose 7,000 CGy ARIA RADIATION ONCOLOGY Plan Primary Reference Point RtOropharyn+Neck ARIA RADIATION ONCOLOGY 11/13/2022 1:53 PM EST Physician Radiation Oncology RADIATION ONCOLO GY ORDERABLES Final Result ARIA RADIATION ONCOLOGY documented in this encounter Visit Diagnoses Not on filedocumented in this encounter Additional Health Concerns Assessment Noted Time A fall risk assessment has been complete d for the patient 11/11/2022 11:49 AM EST documented as of this encounter Care Teams Welfare Case Worker Relationship Specialty Start Date End Date Manjit Gorman MD [address] [place] [address] [id number] PCP - General 09/23/22 Olegario Juarez MD [address] [phone] Consulting Physician Radiation Oncology 10/29/2207/05 documented as of this encounter
--- OUTSIDE RECORDS SUMMARY | 2024-07-27 06:57 | XMS_ITS | Encounter Summary ---
Author Organization [facility] Address [address] [id number] Care Team Providers Care Bindery Chief Name Role Phone Manjit Gorman MD Primary Care Provider [phone] Olegario Juarez MD Unavailable Reason for Visit * Reason Comments OP Infusion * Episode Based Medications (Routine) - Closed Specialty Diagnoses / Procedures Referred By Contac t Referred To Contact Diagnoses Cancer of base of tongue (CMS/HCC) Germaine Alejandro MD [address] [address] Phone: tel: fax: [facility] [address] [place] [address] Phone: tel: Referral ID Status Reason Start Date Expiration Date Visits Re quested Visits Authorized [id number] Closed 11/10/2022 05/11/2024 1 9 Encounter Details Date Type Department Care Team (Latest Contact Info) Description 11/14/2022 9:21 AM EST - 11/14/2022 12:44 PM EST Hospital Encounter [facility] [address] [place] [address] Cancer of base of tongue [...] Sign Reading Time Taken Comments Blood Pressure 152/76 11/14/2022 9:23 AM EST Pulse 75 11/14/2022 9:23 AM EST Temperature 36.6 ??C (97.9 ??F) 11/14/2022 9:23 AM ES T Respiratory Rate 18 11/14/2022 9:23 AM EST Oxygen Saturation 99% 11/14/2022 9:23 AM EST Inhaled Oxygen Concentration - - Weight 84.1 kg (185 lb 6.5 oz) 11/14/2022 9:23 A M EST Height 188 cm (6' 2 ) 11/14/2022 9:23 AM EST Body Mass Index 23.8 11/14/2022 9:23 AM EST documented in this encounter Medications [...] encounter Miscellaneous Notes * Addendum Note - Nancy Durand - 11/14/2022 9:30 AM ESTEncounter addended by: Nancy Durand on: 11/26/2022 3:55 PM Actions taken: Charge Capture section accepted documented in this encounter Plan of Treatment Upcoming Encounters Date Type Department Care Team (Late st Contact Info) Description 10/17/2024 8:00 AM EST Clinical Support Pav [facility] Head, Neck & Respiratory [address] [address] 10/17/2024 9:00 AM EST Appointment [facility] PET Scan 800 [place] [address] 10/17/2024 10:00 AM EST Appointment [facility] PET Scan 800 [place] [address] 10/17/2024 11:00 AM EST Office Visit Pav CC Head, Neck & Respiratory [address] [address] Juan Pablo Cee MD [address] [facility] [address] [place] [address] 10/17/2024 1:00 PM EST Clinical Support Pav CC Head, Neck & Respiratory [address] [phone] 10/17/2024 2:20 PM EST Appointment P[facility] G Radiology [address] [place] [address] 10/20/2024 3:30 PM EST Office Visit Pav CC Head, Neck & Respiratory [address] [place] [address] Germaine Alejandro MD 800 [facility] [address] [place] [address] documented as of this encounter Visit Diagnoses Diagnosis 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 2.08 m2 Treatment Plan BSA from Recorded weight), Intravenous, at 778 mL/hr, Administer over 1 Hours, Once, Protect from light. Hazardous Tier 1 Irritant, On Thu11/14/22 at 1030, For 1 dose, In 500 mL NSIndications:Cancer of base of tongue (CMS/HCC) New Bag 11/14/2022 11:21 AM EST 208 mg 778 mL/hr dexamethasone (Decadron) tablet 12 mg 12 mg, Oral, Once, 1 dose, On Thu11/14/22 at 1000, RoutineIndications:Cancer of base of tongue (CMS/HCC) Given 11/14/2022 9:53 AM EST 12 mg ondansetron ODT (Zofran-ODT) disintegrating tablet 16 mg 16 mg, Oral, Once, 1 dose, On Thu11/14/22 at 1000, RoutineIndications:Cancer of base of tongue (CMS/HCC) Given 11/14/2022 9:53 AM EST 16 mg potassium chloride IVPB 10 mEq 10 mEq, Intravenous, Every 1 hour, 3 doses, First dose on Thu11/14/22 at 1000, Last dose on Thu11/14/22 at 1200, RoutineIndications:Cancer of base of tongue (CMS/HCC) New Bag 11/14/2022 12:17 PM EST 10 mEq 100 mL/hr 11/14/2022 11:09 AM EST 10 mEq 100 mL/hr 11/14/2022 10:10 AM EST 10 mEq 100 mL/hr sodium chloride with magnesium sulfate 2 g 1,000 mL infusion 999 mL/hr, Intravenous, Once, 1 dose, On Thu11/14/22 at 1000, RoutineIndications:Cancer of base of tongue (CMS/HCC) New 11/14/2022 10:10 AM EST 999 mL/hr 999 m L/hr sodium chloride with magnesium sulfate 2 g 1,000 mL infusion 999 mL/hr, Intravenous, Once, 1 dose, On Thu11/14/22 at 1130, RoutineIndications:Cancer of base of tongue (CMS/HCC) 11/14/2022 12:23 PM EST 999 mL/hr 999 m L/hr documented in this encounter Additional Health Concerns Assessment Noted Time A fall risk assessment has been complete d for the patient 11/14/2022 9:25 AM EST documented as of this encounter Care Teams Bindery Chief Relationship Specialty Start Date End Date Manjit Gorman MD [address] [place] [address] PCP - General 09/23/22 Olegario Juarez MD [address] [place] [address] Consulting Physician Radiation Oncology 10/29/2207/05 documented as of this encounter
--- OUTSIDE RECORDS SUMMARY | 2024-07-27 06:57 | XMS_ITS | Encounter Summary ---
Author Organization [facility] Address [address] [id number] Care Team Providers Care Supervisor Chassis Assembly Name Role Phone Manjit Gorman MD Primary Care Provider [phone] Olegario Juarez MD Unavailable [phone] Encounter Details Date Type Department Care Team (Latest Contact Info) Description 11/14/2022 12:45 PM EST - 11/14/2022 11:59 PM EST Hospital Encounter [facility] Radiation [id number] [place] [address] Discharge Disposition: Still a Patient Social History [...] CC Head, Neck & Respiratory [address] [address] 10/17/2024 9:00 AM EST Appointment [facility] PET Scan 800 [place] [address] 10/17/2024 10:00 AM EST Appointment [facility] PET Scan 800 [place] [address] 10/17/2024 11:00 AM EST Office Visit Pav CC Head, Neck & Respiratory 800 [facility] 2nd [place] [address] Juan Pablo Cee MD [address] [facility] [address] [place] [address] 10/17/2024 1:00 PM EST Clinical Support Pav CC Head, Neck & Respiratory 800 [facility], 2nd [place] [address] 10/17/2024 2:20 PM EST Appointment PAV G Radiology [address] [place] [address] 10/20/2024 3:30 PM EST Office Visit Pav CC Head, Neck & Respiratory 800 [facility], 2nd [place] [address] Germaine Alejandro MD 800 [facility] [address] [place] [address] documented as of this encounter Visit Diagnoses Not on filedocumented in this encounter Additional Health Concerns Assessment Noted Time A fall risk assessment has been complete d for the patient 11/14/2022 9:25 AM EST documented as of this encounter Care Teams Supervisor Chassis Assembly Relationship Specialty Start Date End Date Manjit Gorman MD [address] [phone] PCP - General 09/23/22 Olegario Juarez MD 800 [facility] [address] [place] [address] Consulting Physician Radiation Oncology 10/29/2207/05 documented as of this encounter
--- OUTSIDE RECORDS SUMMARY | 2024-07-27 06:57 | XMS_ITS | Encounter Summary ---
Author Organization [facility] Address [address] [place], [place] [address] Care Team Providers Care Assistant Offset Press Operator Name Role Phone Manjit Gorman MD Primary Care Provider [phone] Encounter Details Date Type Department Care Team (Late Contact Info) Description 10/22/2022 Telephone [facility] Radiation [address] [place] [address] Olegario Juarez MD 800 [facility] [address] [place] [address] Social History Tobacco Use Types Packs/Day Years Used Date Smoking Tobacco: Never Smokeless Tobacco: Never Alcohol Use Standard Drinks/Week Comments Yes 0 (1 standard drink = 0.6 oz pur e alcohol) socially PHQ-2 Answer Date Recorded Patient Health Questionnaire-2 Score 0 09/23/2022 Sex and Gender Information Value Date Recorded Sex Assigned at Not on file Legal Sex Male 10:04 PM EDT Gender Identity Not on file Sexual Orientation Not on file COVID-19 Exposure Response Date Recorded In the last 10 days, have yo u been in contact with someone who was confirmed or suspected to have Coronavirus/COVID-19? No / Unsure 10/21/2022 8:30 AM EST documented as of this encounter Plan of Treatment Upcoming Encounters Date Type Department Care Team (Late Contact Info) Description 10/17/2024 8:00 AM EST Clinical Support Pav CC Head, Neck & Respiratory [address]nd [place] [address] 10/17/2024 9:00 AM EST Appointment [facility] PET Scan 800 [place] [address] 10/17/2024 10:00 AM EST Appointment [facility] PET Scan 800 [place] [address] 10/17/2024 11:00 AM EST Office Visit Pav CC Head, Neck & Respiratory 800 [facility], [address]nd [place] [address] Juan Pablo Cee MD [address] [facility] [address] [place] [address] 10/17/2024 1:00 PM EST Clinical Support Pav CC Head, Neck & Respiratory [address] [phone] 10/17/2024 2:20 PM EST Appointment PAV G Radiology [address] [place] [address] 10/20/2024 3:30 PM EST Office Visit Pav CC Head, Neck & Respiratory [address] [phone] Germaine Alejandro MD 800 [facility] [address] [place] [address] documented as of this encounter Visit Diagnoses Not on filedocumented in this encounter Additional Health Concerns Assessment Noted Time A fall risk assessment has been complete d for the patient 10/21/2022 1:08 PM EST documented as of this encounter Care Teams Assistant Offset Press Operator Relationship Specialty Start Date End Date Manjit Gorman MD [address] [place] [phone] PCP - General 09/23/22 documented as of this encounter
--- OUTSIDE RECORDS SUMMARY | 2024-07-27 06:57 | XMS_ITS | Encounter Summary ---
Author Organization [facility] Address [address] [place] [address] Care Team Providers Care General Passenger Agent Name Role Phone Manjit Gorman MD Primary Care Provider [phone] Olegario Juarez MD Unavailable [phone] Encounter Details Date Type Department Care Team (Latest Contact Info) Description 11/11/2022 Travel Social History Tobacco Use Types Packs/Day [...] suspected to have Coronavirus/COVID-19? No / Unsure 11/10/2022 7:53 AM EST documented as of this encounter Plan of Treatment Upcoming Encounters Date Type Department Care Team (Late st Contact Info) Description 10/17/2024 8:00 AM EST Clinical Support Pav CC Head, Neck & Respiratory 800 [facility], 2nd [place] [address] 10/17/2024 9:00 AM EST Appointment [facility] PET Scan 800 [place] [address] 10/17/2024 10:00 AM EST Appointment [facility] PET Scan 800 [place] [address] 10/17/2024 11:00 AM EST Office Visit Pav CC Head, Neck & Respiratory 800 [facility], 2nd [place] [address] Juan Pablo Cee MD [address] [facility] [address] [place] [address] 10/17/2024 1:00 PM EST Clinical Support Pav CC Head, Neck & Respiratory 800 [facility], 2nd [place] [address] 10/17/2024 2:20 PM EST Appointment PAV G Radiology [address] [place] [address] 10/20/2024 3:30 PM EST Office Visit Pav CC Head, Neck & Respiratory 800 [facility], [address]nd [place] [address] Germaine Alejandro MD [address] [facility] [place] [address] documented as of this encounter Visit Diagnoses Not on filedocumented in this encounter Additional Health Concerns Assessment Noted Time A fall risk assessment has been complete d for the patient 11/11/2022 11:49 AM EST documented as of this encounter Care Teams General Passenger Agent Relationship Specialty Start Date End Date Manjit Gorman MD [address] [place], [place] [phone] PCP - General 09/23/22 Olegario Juarez MD [address] [place] [address] Consulting Physician Radiation Oncology 10/29/2207/05 documented as of this encounter
--- OUTSIDE RECORDS SUMMARY | 2024-07-27 06:57 | XMS_ITS | Encounter Summary ---
Author Organization [facility] Address [address] [place] [address] Care Team Providers Care System Software Developer Name Role Phone Manjit Gorman MD Primary Care Provider [phone] Olegario Juarez MD Unavailable [phone] Encounter Details Date Type Department Care Team (Late Contact Info) Description 11/11/2022 Orders Only [facility] Radiation [id number] [place] [address] Radiation Oncology, Physician, [address] [place], [place] [phone] Social History Tobacco Use Types Packs/Day Years [...] [address] [place] [address] 10/17/2024 9:00 AM EST Appointment [facility] PET Scan 800 [place] [phone] 10/17/2024 10:00 AM EST Appointment [facility] PET Scan 800 [place] [address] 10/17/2024 11:00 AM EST Office Visit Pav CC Head, Neck & Respiratory 800 [facility], [address] [place] [address] Juan Pablo Cee MD [address] [facility] [address] [place] [address] 10/17/2024 1:00 PM EST Clinical Support Pav CC Head, Neck & Respiratory 800 [facility], [address] [place] [address] 10/17/2024 2:20 PM EST Appointment PAV G Radiology [address] [place] [address] 10/20/2024 3:30 PM EST Office Visit Pav CC Head, Neck & Respiratory 800 [facility], [address] [place] [address] Germaine Alejandro MD 800 [facility] [address] [place] [address] documented as of this encounter Procedures Procedure Name Priority Date/Time Associated Diagnosis Comments RAD ONC ARIA SESSION SUMMARY Routine 11/11/2022 11:39 AM EST documented in this encounter Results * Rad Onc Aria Session Summary (11/11/2022 11:39 AM EST) Course ID C1 ARIA RADIATION ONCOLOGY Course Intent Curative ARIA RADIATION ONCOLOGY Course Start Date 10/30/2022 3:11 PM ARIA RADIATION ONCOLOGY Course First Treatment Date 11/11/2022 11:30 AM ARIA RADIATION ONCOLOGY Course Last Treatment Date 11/11/2022 11:33 AM ARIA RADIATION ONCOLOGY Course Elapsed Days 0 ARIA RADIATION ONCOLOGY Reference Point ID RtOropharyn+Neck ARIA RADIATION ONCOLOGY Reference Point Dosage Given to Date 2 Gy ARIA RADIATION ONCOLOGY Reference Point Session Dosage Given 2 Gy ARIA RADIATION ONCOLOGY Plan ID RtOropharynx ARIA RADIATION ONCOLOGY Plan Name H&N ARIA RADIATION ONCOLOGY Plan Fractions Treated to Date 1 ARIA RADIATION ONCOLOGY Plan Total Fractions Prescribed 35 ARIA RADIATION ONCOLOGY Plan Prescribed Dose Per Fraction 2 Gy ARIA RADIATION ONCOLOGY Plan Total Prescribed Dose 7,000 CGy ARIA RADIATION ONCOLOGY Plan Primary Reference Point RtOropharyn+Neck ARIA RADIATION ONCOLOGY 11/11/2022 11:3 9 AM EST Physician Radiation Oncology RADIATION ONCOLO GY ORDERABLES Final Result ARIA RADIATION ONCOLOGY documented in this encounter Visit Diagnoses Not on filedocumented in this encounter Additional Health Concerns Assessment Noted Time A fall risk assessment has been complete d for the patient 11/11/2022 11:49 AM EST documented as of this encounter Care Teams System Software Developer Relationship Specialty Start Date End Date Manjit Gorman MD [address] [place] [address] PCP - General 09/23/22 Olegario Juarez MD [address] [phone] Consulting Physician Radiation Oncology 10/29/2207/05 documented as of this encounter
--- OUTSIDE RECORDS SUMMARY | 2024-07-27 06:57 | XMS_ITS | Encounter Summary ---
Author Organization [facility] Address [address] [place] [address] Care Team Providers Care International Marketing Specialist Name Role Phone Manjit Gorman MD Primary Care Provider [phone] Olegario Juarez MD Unavailable [phone] Encounter Details Date Type Department Care Team (Latest Contact Info) Description 11/03/2022 Travel Social History Tobacco Use Types Packs/Day [...] suspected to have Coronavirus/COVID-19? No / Unsure 10/29/2022 10:40 AM EST documented as of this encounter Plan of Treatment Upcoming Encounters Date Type Department Care Team (Late st Contact Info) Description 10/17/2024 8:00 AM EST Clinical Support [facility] 800 [facility], 2nd [place] [address] 10/17/2024 9:00 AM EST Appointment [facility] PET Scan 800 [place] [address] 10/17/2024 10:00 AM EST Appointment [facility] PET Scan 800 [place] [address] 10/17/2024 11:00 AM EST Office Visit [facility] Head[facility] Neck [facility] Respiratory 800 [facility], 2nd [place] [address] Juan Pablo Cee MD [address] [facility] [address] [place] [address] 10/17/2024 1:00 PM EST Clinical Support [facility] Head[facility] Neck [facility] Respiratory 800 [facility], 2nd [place] [address] 10/17/2024 2:20 PM EST Appointment [facility] Radiology [address] [place] [address] 10/20/2024 3:30 PM EST Office Visit [facility] Head[facility] Neck [facility] Respiratory 800 [facility], 2nd [place] [address] Germaine Alejandro MD [address] [facility] [address] [place] [address] documented as of this encounter Visit Diagnoses Not on filedocumented in this encounter Additional Health Concerns Assessment Noted Time A fall risk assessment has been complete d for the patient 10/29/2022 11:04 AM EST documented as of this encounter Care Teams International Marketing Specialist Relationship Specialty Start Date End Date Manjit Gorman MD [address] [place], [place] [phone] PCP - General 09/23/22 Olegario Juarez MD [address] [place] [phone] Consulting Physician Radiation Oncology 10/29/2207/05 documented as of this encounter
--- OUTSIDE RECORDS SUMMARY | 2024-07-27 06:57 | XMS_ITS | Encounter Summary ---
Author Organization [facility] Address [address] [place] [address] Care Team Providers Care Medical Insurance Coding Specialist Name Role Phone Manjit Gorman MD Primary Care Provider Encounter Details Date Type Department Care Team (Latest Contact Info) Description 10/27/2022 2:30 AM EST - 10/27/2022 11:59 PM EST Hospital Encounter [facility] Radiation [address] [place] [address] Discharge Disposition: Still a Patient Social History [...] suspected to have Coronavirus/COVID-19? No / Unsure 10/23/2022 10:20 AM EST documented as of this encounter [...] Upcoming Encounters Date Type Department Care Team ([facility] Contact Info) Description 10/17/2024 8:00 AM EST Clinical Support [facility] Head[facility] Neck [facility] Respiratory [address] [phone] 10/17/2024 9:00 AM EST Appointment [facility] PET Scan 800 [place] [address] 10/17/2024 10:00 AM EST Appointment [facility] PET Scan 800 [place] [address] 10/17/2024 11:00 AM EST Office Visit [facility] Respiratory [address] [phone] Juan Pablo Cee MD [address] [facility] [address] [place] [address] 10/17/2024 1:00 PM EST Clinical Support [facility] Head[facility] Neck [facility] Respiratory [address] [address] 10/17/2024 2:20 PM EST Appointment [facility] Radiology [address] [place] [address] 10/20/2024 3:30 PM EST Office Visit [facility] Head[facility] Neck [facility] Respiratory [address] [address] Germaine Alejandro MD 800 [facility] [address] [place] [address] documented as of this encounter Visit Diagnoses Not on filedocumented in this encounter Additional Health Concerns Assessment Noted Time A fall risk assessment has been complete d for the patient 10/21/2022 1:08 PM EST documented as of this encounter Care Teams Medical Insurance Coding Specialist Relationship Specialty Start Date End Date Manjit Gorman MD [address] [place] [address] PCP - General 09/23/22 documented as of this encounter
--- OUTSIDE RECORDS SUMMARY | 2024-07-27 06:57 | XMS_ITS | Encounter Summary ---
Author Organization [facility] Address [address] [place] [address] Care Team Providers Care Textile Screen Maker Name Role Phone Manjit Gorman MD Primary Care Provider [phone] Olegario Juarez MD Unavailable [phone] Reason for Referral * Consultation (Routine) - Closed Specialty Diagnoses / Procedures Referred By Contac t Referred To Contact Radiation Oncology Diagnoses Cancer of base of tongue (CMS/HCC) Joshua Cee MD [address] [address] Phone: tel: fax: Referral ID Status Reason Start Date Expiration Date V isits Requested Visits Authorized [id number] Closed Specialty Services Required 10/21/2022 04/21/2024 1 1 Scheduling Instructions referral to [facility] Dr. Juarez Reason for Visit * Reason Comments Consult * Consultation (Routine) - Closed Specialty Diagnoses / Procedures Referred By Contac t Referred To Contact Radiation Oncology Diagnoses Cancer of base of tongue (CMS/HCC) Joshua Cee MD [address] [place] [address] Phone: tel: fax: Referral ID Status Reason Start Date Expiration Date V isits Requested Visits Authorized [id number] Closed Specialty Services Required 10/21/2022 04/21/2024 1 1 Encounter Details Date Type Department Care Team (Latest Contact Info) Description 10/29/2022 10:40 AM EST - 10/29/2022 11:59 PM EST Hospital Encounter [facility] Radiation [address] [place] [address] Olegario Juarez MD [address] [place] [address] Cancer of base of tongue [...] Recorded In the last 10 days, have wan u been in contact with someone who was confirmed or suspected to have Coronavirus/COVID-19? No / Unsure 10/29/2022 10:40 AM EST documented as of this encounter Last Filed Vital Signs Vital Sign Reading Time Taken Comments Blood Pressure 145/81 10/29/2022 11:03 AM EST Pulse 56 10/29/2022 11:03 AM EST Temperature - - Respiratory Rate 18 10/29/2022 11:0 3 AM EST Oxygen Saturation 100% 10/29/2022 11: 03 AM EST Inhaled Oxygen Concentration - - Weight 82.5 kg (181 lb 14.1 oz) 023 11:03 AM EST Height - - Body Mass Index 23.35 10/21/2022 1:07 PM EST documented in this encounter Medications at [...] 09/09/2022 04/09/2023 documented as of this encounter Miscellaneous Notes * Progress Notes - Luis Amado MD - 10/29/2022 11:00 AM EST Images from the original note were not included. [facility] RAD[facility]ATION MEDICINE RADIATION ONCOLOGY CONSULTATION NOTE PATIENT NAME: Erick Sierra : 1950 DATE OF SERVICE: 10/29/2022 REFERRING PROVIDER: Joshua Cee MD DIAGNOSIS AND Cancer Staging Cancer of base of tongue (CMS/HCC) Staging form: Pharynx - HPV-Mediated Oropharynx, AJCC 8th Edition - Clinical stage from 10/29/2022: Stage I (cT2, cN1, cM0, p16+) - Unsigned Histopathologic type: Squamous cell carcinoma, NOS Stage prefix: Initial diagnosis PRIOR RADIATION THERAPY: - Prostate cancer s/p CyberKnife in 2021; 5 fractions KARNOFSKY PERFORMANCE STATUS: 90% REASON FOR CONSULTATION: Consideration of radiation therapy for this patient's [id number] 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 Mr. Sierra initially noticed RIGHT-sided throat pain [...] LN biopsy, Mr. Sierra's disease was staged [id number]. CT Chest 10/21/22 showed no metastatic disease, and PET/CT 10/21/22 demonstrated a hypermetabolic RIGHT BOT mass and hypermetabolic RIGHT level IIA (2cm) and IIB (0.7cm) nodes. Radiation Oncology was consulted to evaluate for radiation therapy to the base of tongue and necks.He has an appointment with Medical Oncology team on 11/10/2022 INTERVAL HISTORY: Mr. Sierra has persistent odynophagia in the right side, with minimal weight loss in this period. He also describes ipsilateral otalgia and trismus. REVIEW OF SYSTEMS: A 14 point review of systems was conducted with pertinent positives and negatives above in the HPI.RN note and history reviewed with the patient. Review of Systems Constitutional: Negative for appetite change, chills, diaphoresis, fatigue, fever and unexpected weight change. HENT: Positive for lump/mass, sore throat, tinnitus and trouble swallowing. Negative for hearing loss, mouth sores, nosebleeds and voice change. Eyes: Negative for eye problems and icterus. Respiratory: Negative for chest tightness, cough, hemoptysis, shortness of breath and wheezing. Cardiovascular: Negative for chest pain, leg swelling and palpitations. Gastrointestinal: Negative. Genitourinary: Positive for difficulty urinating. Negative for bladder incontinence, dysuria, frequency, hematuria and nocturia. Musculoskeletal: Negative. Skin: Negative. Neurological: Negative. Hematological: Negative. Psychiatric/Behavioral: Negative. PAST MEDICAL HISTORY: Past Medical History: Diagnosis Date Hypertension Melanoma (CMS/HCC) Prostate cancer (CMS/HCC) had cyberknife therapy PAST SURGICAL HISTORY: Past Surgical History: Procedure Laterality Date COLONOSCOPY NECK LESION BIOPSY 08/2022 SKIN CANCER EXCISION Melanoma removal, upper arm- 2019 TONSILLECTOMY 1957 VASECTOMY 1988 MEDICATIONS: Current Outpatient Medications: amLODIPine-benazepril (Lotrel) 2.5-10 MG capsule, Take 1 capsule by mouth every night., Disp: , Rfl: BLACK ELDERBERRY PO, Take 1 tablet by mouth every night., Disp: , Rfl: multivitamin (Theragran-M) tablet, Take 1 tablet by mouth every night., Disp: , Rfl: tadalafil (Cialis) 5 MG tablet, TAKE 1 OR 2 TABLETS BY MOUTH DAILY NEEDED FOR ED, Disp: , Rfl: terbinafine (LamISIL) 250 MG tablet, TAKE 1 TABLET BY MOUTH FOR THE FIRST 10 DAYS OF EACH MONTH FOR6 MONTHS, Disp: , Rfl: ALLERGIES: No Known Allergies SOCIAL HISTORY: Social History Tobacco Use Smoking status: Never Smokeless tobacco: Never Vaping Use Vaping Use: Never used Substance Use Topics Alcohol use: Yes Comment: socially Drug use: Never 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 He is with Ms. Lipscomb, also present in this Visit. FAMILY HISTORY: Family History Problem Relation Name Age of Onset Heart disease Other Hypertension Other Malig Hyperthermia Neg Hx History of Melanoma resected in 2017, currently on surveillance, with no evidence of disease History of low-intermediate prostate cancer, treated with Cyber Knife in 2021, currently on surveillance, last PSA was 3.7 PHYSICAL EXAM: Vital Signs: Visit Vitals BP (!) 145/81 Pulse 56 Resp 18 Wt 82.5 kg (181 lb 14.1 oz) SpO2 100% BMI 23.35 kg/m?? Smoking Status Never BSA 2.08 m?? Physical Exam Constitutional: Appearance: Normal appearance. He is normal weight. HENT: Head: Normocephalic and atraumatic. Mouth/Throat: Mouth: Mucous membranes are dry. Pulmonary: Effort: Pulmonary effort is normal. Abdominal: General: Abdomen is flat. Palpations: Abdomen is soft. Musculoskeletal: Cervical back: No rigidity or tenderness. Lymphadenopathy: Cervical: Cervical adenopathy present. Skin: General: Skin is warm and dry. Neurological: General: No focal deficit present. Mental Status: He is alert and oriented to person, place, and time. PATHOLOGY AND LABORATORY STUDIES: All pertinent lab [...] reviewed by the staff attending and myself. CT Chest w IV Contrast 10/21/2022 Narrative Exam/Procedure: CT CHEST W IV CONTRAST ordered by JOSHUA CEE, [id number] CLINICAL INDICATION: Head/neck cancer, surveillance TECHNIQUE: Multiple CT helical images were obtained from thoracic inlet through upper abdomen with administration of IV contrast. 100 mL of Omnipaque-300 were administered intravenously. Total DLP (Dose-Length Product): 114.34 mGy.cm. Please note: The reported value represents the total of one or more individual components during the CT acquisition on this date and at this time, and as such, the same value may appear in more than one CT report depending on the interpreting/reporting physicians. COMPARISON: PET/CT from the same date FINDINGS: Mediastinum and Pleura: No enlarged lymph nodes. No pleural or pericardial effusions. Small sliding-type hiatal hernia containing gastric cardia. Lungs: Calcified granuloma within left lung base. Cluster of nodules within superior segment of right middle lobe is not significantly changed. No new lesions are appreciated. Upper Abdomen: No suspicious lesions in the partially visualized upper abdomen. Musculoskeletal: No suspicious lytic or sclerotic lesion. Impression No evidence of neoplastic disease progression. CRITICAL RESULT: No. COMMUNICATION: Per this written report. Dictated by Christen Gautam MD on 10/21/2022 1:57 PM Signed by Christen Gautam MD on 10/21/2022 2:08 PM ASSESSMENT AND PLAN: Erick Sierra is a 72 y.o. 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 PET/CT 10/21/22 demonstrated a hypermetabolic RIGHT BOT mass and hypermetabolic RIGHT level IIA and IIB nodes. Radiation Oncology was consulted to evaluate for radiation therapy to the base of tongue and necks. Based on the clinical history, pathology findings and staging exams, I discuss with the patient regarding possible treatment options, including radiochemotherapy and surgery, informing risks and benefits associated with both strategies. In addition we explained to him all the radiation process, including the pre-planning process and the requirement of a mask for the treatment. I requested a new dentistry visit in preparation for the treatment. I also explained to the patient the side effects inthe mouth mucosa and the swallowing problems that can be caused by the treatment and that a secondary feeding tube (NG tube or PEG tube) can be required. He wishes to proceed with radiation treatment as it was described to him. All of his questions wereanswered to the patient's satisfaction. Mr. Sierra has been given a printout regarding future appointments and the plan of care. He has our contact information should he have questions or concerns. A total of 60 minutes were spent preparing, performing an examination, counseling, educating the patient, and care coordination with more than 35 minutes of that time used for counseling the patient and coordination of care. Thank you for allowing us to take part in the care of Erick Sierra. Please do not hesitate to contact our clinic if you have any questions or concerns. NOTES FOR TREATMENT PLANNING History of prior radiation: Yes History of auto-immune disease: No History of ulcerative colitis or Crohn's disease: No History of connective tissue disorder: No Pacemaker or ICD: No Able to lay flat: Yes Transportation available: Yes MD Matthew Oliveira II, MD, PGY-3 Resident Physician, Radiation Oncology [facility] Pager: [phone] Cosigned by Olegario Juarez MD at 10/29/2022 2:17 PM EST Associated attestation - Olegario Juarez MD - 10/29/2022 2:17 PM EST I saw and evaluated the patient with the resident. I discussed the case with the resident and agreewith the findings and plan as documented. documented in this encounter Plan of Treatment Upcoming Encounters Date Type Department Care Team (Late st Contact Info) Description 10/17/2024 8:00 AM EST Clinical Support [facility] Head[facility]ck [facility] Respiratory [address] [place] [address] 10/17/2024 9:00 AM EST Appointment [facility] PET Scan 800 [place] [address] 10/17/2024 10:00 AM EST Appointment [facility] PET Scan 800 [place] [address] 10/17/2024 11:00 AM EST Office Visit [facility] Head[facility] Neck [facility] Respiratory 800 [facility], 2nd [place] [address] Joshua Cee MD [address] [facility] [address] [place] [address] 10/17/2024 1:00 PM EST Clinical Support [facility] Head[facility] Neck [facility] Respiratory [address] [phone] 10/17/2024 2:20 PM EST Appointment [facility] G Radiology [address] [place] [address] 10/20/2024 3:30 PM EST Office Visit [facility] Head[facility] Neck [facility] Respiratory [address] [phone] Germaine Alejandro MD 800 [facility] [address] [place] [address] Scheduled Referrals Name Type Priority Associated Diagnoses Order Schedule Ambulatory referral to Radiation Oncology Outpatient Referral Routine Cancer of base of tongue (CMS/HCC) Once for 1 Occurrences starting 10/29/2022 until 10/29/2022 documented as of this encounter Visit Diagnoses Diagnosis Cancer of base of tongue (CMS/HCC)- Primary Malignant neoplasm of base of tongue documented in this encounter Additional Health Concerns Assessment Noted Time A fall risk assessment has been complete d for the patient 10/29/2022 11:04 AM EST documented as of this encounter Care Teams Textile Screen Maker Relationship Specialty Start Date End Date Manjit Gorman MD [address] [place] [address] PCP - General 09/23/22 Olegario Juarez MD 800 [facility] [address] [place] [address] Consulting Physician Radiation Oncology 10/29/2207/05 documented as of this encounter
--- OUTSIDE RECORDS SUMMARY | 2024-07-27 06:57 | XMS_ITS | Encounter Summary ---
Author Organization [facility] Address [address] [place], [place] [address] Care Team Providers Care Clinical Administrator Name Role Phone Manjit Gorman MD Primary Care Provider [phone] Olegario Juarez MD Unavailable [phone] Encounter Details Date Type Department Care Team (Latest Contact Info) Description 10/30/2022 2:49 PM EST - 10/30/2022 11:59 PM EST Hospital Encounter [facility] Radiation [id number] [place] [address] Olegario Juarez MD [address] [place] [address] Discharge Disposition: Still a Patient Social History [...] Upcoming Encounters Date Type Department Care Team ([facility] st Contact Info) Description 10/17/2024 8:00 AM EST Clinical Support [facility] Head[facility] Neck & Respiratory [address] [phone] 10/17/2024 9:00 AM EST Appointment [facility] PET Scan 800 [place] [address] 10/17/2024 10:00 AM EST Appointment [facility] PET Scan 800 [place] [address] 10/17/2024 11:00 AM EST Office Visit [facility] Head[facility] Neck [facility] Respiratory 800 [place] [address] Juan Pablo Cee MD [address] [facility] [address] [place] [address] 10/17/2024 1:00 PM EST Clinical Support [facility] Head[facility] Neck [facility] Respiratory [address] [phone] 10/17/2024 2:20 PM EST Appointment P[facility] G Radiology [address] [place] [address] 10/20/2024 3:30 PM EST Office Visit [facility] Head[facility] Neck & Respiratory [address] [address] Germaine Alejandro MD 800 [facility] [address] [place] [address] documented as of this encounter Visit Diagnoses Not on filedocumented in this encounter Additional Health Concerns Assessment Noted Time A fall risk assessment has been complete d for the patient 10/29/2022 11:04 AM EST documented as of this encounter Care Teams Clinical Administrator Relationship Specialty Start Date End Date Manjit Gorman MD [address] [place] [address] PCP - General 09/23/22 Olegario Juarez MD [address] [place] [address] Consulting Physician Radiation Oncology 10/29/2207/05 documented as of this encounter
--- OUTSIDE RECORDS SUMMARY | 2024-07-27 06:57 | XMS_ITS | Encounter Summary ---
Author Organization [facility] Address [address] [place], [place] [address] Care Team Providers Care Lead Software Engineer Name Role Phone Manjit Gorman MD Primary Care Provider [phone] Olegario Juarez MD Unavailable [phone] Encounter Details Date Type Department Care Team (Latest Contact Info) Description 11/11/2022 11:10 AM EST - 11/11/2022 11:12 AM EST Hospital Encounter [facility] Radiation [address] [place] [address] Olegario Juarez MD [address] [place] [address] Squamous cell carcinoma of cheek (Primary Dx) Discharge Disposition: Still a Patient [...] Progress Notes - Meggan Kraus MD - 11/11/2022 11:30 AM EST Patient Name: Erick Sierra Date of : 1950 72 y.o. Encounter Date: 11/11/2022 RESEARCH STUDY PATIENT: Yes: [] No: [x] [...] treatment Asymptomatic Subjective Mr. Sierra presents today after undergoing his first treatment. He denies any new symptoms or healthconcerns at this time. He will start his chemotherapy soon and has already been prescribed his antinausea medications. We will plan to see him weekly for status checks. We discussed beginning mouthwashes in preparation for radiation therapy side effects. Physical Exam Healthy male appearing stated age. Normal appearing mucosa in the oropharynx with no mucositis or lesions present. Neck soft and supple with normal range of motion. Symmetric chest rise with unlabored breathing. Assessment/Plan Mr. Sierra is a 72-year-old male RIGHT base of tongue p16+ SCCa metastatic to RIGHT neck who under went treatment today. He appears well on exam today. -Plan to continue with RT as planned -Provide MW1 formulary -[facility] paperwork filled out in clinic today and faxed to [facility]; patient provided copy -Continue with weekly status checks Radiation Treatments Active Plans H&N [RtOropharynx] Most recent treatment: Dose planned: 200 cGy (fraction 1 on 11/11/2022) Total: Dose planned: 7,000 cGy (35 fractions) Elapsed Days: 0 Reference Points RtOropharyn+Neck Most recent treatment: Dose given: 200 cGy (on 11/11/2022) Total: Dose given: 200 cGy Elapsed Days: 0 Resident signature: Meggan Kraus MD [facility] RAD[facility] [address] [place] [phone] Cosigned by Olegario Juarez MD at 11/11/2022 8:41 PM EST Associated attestation - Olegario Juarez MD - 11/11/2022 8:41 PM EST I saw and evaluated the patient with the resident. I discussed the case with the resident and agreewith the findings and plan as documented. documented in this encounter Plan of Treatment Upcoming Encounters Date Type Department Care Team (Late st Contact Info) Description 10/17/2024 8:00 AM EST Clinical Support [facility] Head[facility] Neck & Respiratory [address] [address] 10/17/2024 9:00 AM EST Appointment [facility] PET Scan [address] [place] [address] 10/17/2024 10:00 AM EST Appointment [facility] PET Scan 800 [place] [address] 10/17/2024 11:00 AM EST Office Visit [facility] Head[facility] Neck & Respiratory [address] [address] Juan Pablo Cee MD [address] [facility] [address] [place] [address] 10/17/2024 1:00 PM EST Clinical Support [facility] Head[facility] Neck & Respiratory [address] [address] 10/17/2024 2:20 PM EST Appointment [facility] G Radiology [address] [place] [address] 10/20/2024 3:30 PM EST Office Visit [facility] Head[facility] Neck & Respiratory [address] [address] Germaine Alejandro MD 800 [facility] [address] [place] [address] documented as of this encounter Visit Diagnoses Diagnosis Squamous cell carcinoma of cheek- Primary documented in this encounter Additional Health Concerns Assessment Noted Time A fall risk assessment has been complete d for the patient 11/11/2022 11:49 AM EST documented as of this encounter Care Teams Lead Software Engineer Relationship Specialty Start Date End Date Manjit Gorman MD [address] [place] [address] PCP - General 09/23/22 Olegario Juarez MD [address] [phone] Consulting Physician Radiation Oncology 10/29/2207/05 documented as of this encounter
--- OUTSIDE RECORDS SUMMARY | 2024-07-27 06:57 | XMS_ITS | Encounter Summary ---
Author Organization [facility] Address [address] [place] [address] Care Team Providers Care Radiography Technician Name Role Phone Manjit Gorman MD Primary Care Provider [phone] Encounter Details Date Type Department Care Team (Latest Contact Info) Description 10/23/2022 Travel Social History Tobacco Use Types Packs/Day [...] & Respiratory 800 [facility], 2nd [place] [address] 10/17/2024 9:00 AM EST Appointment [facility] PET Scan 800 [place] [address] 10/17/2024 10:00 AM EST Appointment [facility] PET Scan 800 [place] [address] 10/17/2024 11:00 AM EST Office Visit Pav [facility] Head, Neck & Respiratory 800 [facility], 2nd [place] [address] Juan Pablo Cee MD [address] [facility] [address] [place] [address] 10/17/2024 1:00 PM EST Clinical Support Pav CC Head, Neck & Respiratory 800 [facility], 2nd [place] [address] 10/17/2024 2:20 PM EST Appointment P[facility] G Radiology [address] [place] [address] 10/20/2024 3:30 PM EST Office Visit Pav CC Head, Neck & Respiratory [address] [phone] Germaine Alejandro MD 800 [facility] [address] [place] [address] documented as of this encounter Visit Diagnoses Not on filedocumented in this encounter Additional Health Concerns Assessment Noted Time A fall risk assessment has been complete d for the patient 10/21/2022 1:08 PM EST documented as of this encounter Care Teams Radiography Technician Relationship Specialty Start Date End Date Manjit Gorman MD [address] [place] [address] PCP - General 09/23/22 documented as of this encounter
--- OUTSIDE RECORDS SUMMARY | 2024-07-27 06:57 | XMS_ITS | Encounter Summary ---
Author Organization [facility] Address [address] [place] [address] Care Team Providers Care Reel Worker Name Role Phone Manjit Gorman MD Primary Care Provider [phone] Olegario Juarez MD Unavailable [phone] Encounter Details Date Type Department Care Team (Late Contact Info) Description 11/12/2022 Orders Only [facility] Radiation [address] [place] [address] Radiation Oncology, Physician, [address] [place], [place] [id number] Social History Tobacco Use Types Packs/Day Years [...] & Respiratory [address], [address]nd [place] [address] 10/17/2024 9:00 AM EST Appointment [facility] PET Scan 800 [place] [address] 10/17/2024 10:00 AM EST Appointment [facility] PET Scan 800 [place] [address] 10/17/2024 11:00 AM EST Office Visit Pav CC Head, Neck & Respiratory 800 [facility], [address] [place] [address] Juan Pablo Cee MD [address] [facility] [address] [place] [address] 10/17/2024 1:00 PM EST Clinical Support Pav CC Head, Neck & Respiratory 800 [facility], [address] [place] [address] 10/17/2024 2:20 PM EST Appointment [facility] G Radiology [address] [place] [address] 10/20/2024 3:30 PM EST Office Visit Pav CC Head, Neck & Respiratory 800 [facility], [address] [place] [address] Germaine Alejandro MD 800 [facility] [address] [place] [address] documented as of this encounter Procedures Procedure Name Priority Date/Time Associated Diagnosis Comments RAD ONC ARIA SESSION SUMMARY Routine 11/12/2022 12:34 PM EST documented in this encounter Results * Rad Onc Aria Session Summary (11/12/2022 12:34 PM EST) Course ID C1 ARIA RADIATION ONCOLOGY Course Intent Curative ARIA RADIATION ONCOLOGY Course Start Date 10/30/2022 3:11 PM ARIA RADIATION ONCOLOGY Course First Treatment Date 11/11/2022 11:30 AM ARIA RADIATION ONCOLOGY Course Last Treatment Date 11/12/2022 12:28 PM ARIA RADIATION ONCOLOGY Course Elapsed Days 1 ARIA RADIATION ONCOLOGY Reference Point ID RtOropharyn+Neck ARIA RADIATION ONCOLOGY Reference Point Dosage Given to Date 4 Gy ARIA RADIATION ONCOLOGY Reference Point Session Dosage Given 2 Gy ARIA RADIATION ONCOLOGY Plan ID RtOropharynx ARIA RADIATION ONCOLOGY Plan Name H&N ARIA RADIATION ONCOLOGY Plan Fractions Treated to Date 2 ARIA RADIATION ONCOLOGY Plan Total Fractions Prescribed 35 ARIA RADIATION ONCOLOGY Plan Prescribed Dose Per Fraction 2 Gy ARIA RADIATION ONCOLOGY Plan Total Prescribed Dose 7,000 CGy ARIA RADIATION ONCOLOGY Plan Primary Reference Point RtOropharyn+Neck ARIA RADIATION ONCOLOGY 11/12/2022 12:3 4 PM EST Physician Radiation Oncology RADIATION ONCOLO GY ORDERABLES Final Result ARIA RADIATION ONCOLOGY documented in this encounter Visit Diagnoses Not on filedocumented in this encounter Additional Health Concerns Assessment Noted Time A fall risk assessment has been complete d for the patient 11/11/2022 11:49 AM EST documented as of this encounter Care Teams Reel Worker Relationship Specialty Start Date End Date Manjit Gorman MD [address] [place] [address] PCP - General 09/23/22 Olegario Juarez MD [address] [phone] Consulting Physician Radiation Oncology 10/29/2207/05 documented as of this encounter
--- OUTSIDE RECORDS SUMMARY | 2024-07-27 06:57 | XMS_ITS | Encounter Summary ---
Author Organization [facility] Address [address] [place] [address] Care Team Providers Care Telephone Lines Repairer Name Role Phone Manjit Gorman MD Primary Care Provider [phone] Reason for Referral * Consultation (Routine) - Closed Specialty Diagnoses / Procedures Referred By Contac t Referred To Contact Medical Oncology / Hematology and Oncology Diagnoses Cancer of base of tongue (CMS/HCC) Juan Pablo Cee MD [address] [address] Phone: tel: fax: Referral ID Status Reason Start Date Expiration Date V isits Requested Visits Authorized [id number] Closed Specialty Services Required 10/21/2022 04/21/2024 1 1 Scheduling Instructions referral to [facility] Dr. Alejandro * Consultation (Routine) - Closed Specialty Diagnoses / Procedures Referred By Contac t Referred To Contact Radiation Oncology Diagnoses Cancer of base of tongue (CMS/HCC) Juan Pablo Cee MD [address] [address] Phone: tel: fax: Referral ID Status Reason Start Date Expiration Date V isits Requested Visits Authorized [id number] Closed Specialty Services Required 10/21/2022 04/21/2024 1 1 Scheduling Instructions referral to [facility] Dr. Juarez Reason for Visit * Reason Comments Follow-up Encounter Details Date Type Department Care Team (Late st Contact Info) Description 10/21/2022 2:30 PM EST Office Visit Pav [facility] Head, Neck & Respiratory [address], [address]nd [place] [address] Juan Pablo Cee MD [address] [place] [address] 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); Cancer of neck (CMS/HCC) Social History Tobacco Use Types Packs/Day [...] Sign Reading Time Taken Comments Blood Pressure 147/74 10/21/2022 1:07 PM EST Pulse 88 10/21/2022 1:07 PM EST Temperature 36.7 ??C (98 ??F) 10/21/2022 1:07 PM EST Respiratory Rate 16 10/21/2022 1:07 PM EST Oxygen Saturation 97% 10/21/2022 1:07 PM EST Inhaled Oxygen Concentration - - Weight 81.2 kg (179 lb 0.2 oz) 10/21/2022 1:07 P M EST Height 188 cm (6' 2 ) 10/21/2022 1:07 PM EST Body Mass Index 22.98 10/21/2022 1:07 PM EST documented in this encounter Miscellaneous Notes * Progress Notes - Juan Pablo Cee MD - 10/21/2022 2:30 PM EST Mr. Erick Sierra is a very pleasant 72 y.o. patient who is returning to the clinic today for his follow-up. 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 He did well with biopsies and denied any complications. He has a T2 N1 M0 P [...] recommended consult with me for evaluation and management The patient reported otalgia, denies otorrhea, hearing loss, vertigo or tinnitus. He denied having sinonasal symptoms, postnasal drip, epistaxis, nasal congestion/obstruction or anosmia/hyposmia. He also denied dysphagia, odynophagia, dysphonia, dyspepsia, dyspnea or reflux disease. The patient's complete review of system from 10/21/22 was performed today. All systems were negative [...] illicit drugs. PHYSICAL EXAMINATION: Visit Vitals BP (!) 147/74 (BP Location: Right arm, Patient Position: Sitting, BP Cuff Size: Adult) Pulse 88 Temp 36.7 ??C (98 ??F) (Oral) Ht 1.88 m (6' 2 ) Wt 81.2 kg (179 lb 0.2 oz) SpO2 97% BMI 22.98 kg/m?? General: He is a very healthy-appearing [...] tenderness and firmness along the right glossotonsillar sulcus Oropharynx: Tonsils are surgically absent Neck: soft [...] hypertension 4- history of several skin cancers RECOMMENDATIONS: I discussed these findings with the patient and his family. I answered his questions to the best ofmy ability. I independently reviewed the PET-CT scan performed today 10/21/2022 and the patient has hypermetabolism in the right base of tongue with lymph node in right level 2A and 2b. I discussed my findings with him and his family. He was also found to have a cluster of lymph nodes hypermetabolic in the mediastinum favoring infections. There was also hypermetabolism in the left postauricular area but clinical examination was normal. I also independently reviewed the CT scan of the chest performed today and he does not have any evidence of thoracic malignancy. His clinical examination is stable with right base of tongue tumor with enlarged lymph node in the right neck. We discussed different treatment options such as surgery or radiation and chemotherapy. After very thorough discussion with the patient and his family, we elected proceeding with chemoradiation therapy as the primary treatment and the patient would like to be treated at [facility]. Referrals have been made. I will see the patient in my clinic in 1 month, sooner if he has any problems or concerns. Juan Pablo Cee MD MS FACS Medical Charge Entry Specialist Head & Neck Oncology Rhinology & Skull Base Surgery documented in this encounter Plan of Treatment Upcoming Encounters Date Type Department Care Team (Late st Contact Info) Description 10/17/2024 8:00 AM EST Clinical Support Pav CC Head, Neck & Respiratory 800 [facility], [address]nd [place] [address] 10/17/2024 9:00 AM EST Appointment [facility] PET Scan 800 [place] [address] 10/17/2024 10:00 AM EST Appointment [facility] PET Scan 800 [place] [address] 10/17/2024 11:00 AM EST Office Visit Pav CC Head, Neck & Respiratory 800 [facility], [address] [place] [address] Juan Pablo Cee MD [address] [facility] [address] [place] [address] 10/17/2024 1:00 PM EST Clinical Support Pav CC Head, Neck & Respiratory 800 [facility], [address] [place] [address] 10/17/2024 2:20 PM EST Appointment P[facility] G Radiology [address] [place] [address] 10/20/2024 3:30 PM EST Office Visit Pav CC Head, Neck & Respiratory 800 [facility], [address] [place] [address] Germaine Alejandro MD 800 [facility] Jyothi Junior [facility] [address] [place] [phone] Scheduled Referrals Name Type Priority Associated Diagnoses Order Schedule Ambulatory referral to Radiation Oncology Outpatient Referral Routine Cancer of base of tongue (CMS/HCC) 1 Occurrences starting 10/21/2022 until 04/20/2024 Ambulatory referral to Medical Oncology Outpatient Referral Routine Cancer of base of tongue (CMS/HCC) Expected: 10/21/2022 (Approximate), Expires: 04/20/2024 documented as of this encounter Visit Diagnoses Diagnosis Cancer of base of tongue (CMS/HCC)- Primary Malignant neoplasm of base of tongue Cancer of neck (CMS/HCC) Malignant neoplasm of head, face, and neck documented in this encounter Additional Health Concerns Assessment Noted Time A fall risk assessment has been complete d for the patient 10/21/2022 1:08 PM EST documented as of this encounter Care Teams Telephone Lines Repairer Relationship Specialty Start Date End Date Manjit Gorman MD [address] [place] [address] PCP - General 09/23/22 documented as of this encounter
--- OUTSIDE RECORDS SUMMARY | 2024-07-27 06:57 | XMS_ITS | Encounter Summary ---
Author Organization [facility] Address [address] [place], [place] [address] Care Team Providers Care Lump Machine Operator Name Role Phone Manjit Gorman MD Primary Care Provider [phone] Olegario Juarez MD Unavailable [phone] Reason for Visit * Reason Comments OTV Encounter Details Date Type Department Care Team (Latest Contact Info) Description 11/11/2022 - 11/11/2022 11:09 AM EST Hospital Encounter [facility] Radiation [address] [place] [address] Olegario Juarez MD [address] [place] [address] Cancer of base of tongue [...] Sign Reading Time Taken Comments Blood Pressure 137/71 11/11/2022 11:50 AM EST Pulse 69 11/11/2022 11:47 AM EST Temperature 36.6 ??C (97.8 ??F) 11/11/2022 11:[address] Respiratory Rate 14 11/11/2022 11:47 AM EST Oxygen Saturation 100% 11/11/2022 11:47 AM EST Inhaled Oxygen Concentration - - Weight 83.6 kg (184 lb 4.9 oz) 11/11/2022 11:47 AM EST Height 188 cm (6' 2 ) 11/11/2022 11:47 AM EST Body Mass Index 23.66 11/11/2022 11:47 AM EST documented in this encounter Medications [...] encounter Miscellaneous Notes * Progress Notes - Olegario Juarez MD - 11/11/2022 12:00 AM EST Patient Name: Erick Sierra Date of : 1950 72 y.o. Encounter Date: 11/11/2022 RESEARCH STUDY PATIENT: Yes: [] No: [x] Treatment Diagnosis and Cancer Staging Cancer of base of tongue (CMS/HCC) Staging form: Pharynx - HPV-Mediated Oropharynx, AJCC 8th Edition - Clinical stage from 10/29/2022: Stage I (cT2, cN1, cM0, p16+) - Signed by Germaine Alejandro MD on 11/10/2022 Visit Vitals BP 137/71 Pulse 69 Temp 36.6 ??C (97.8 ??F) Resp 14 Ht 1.88 m (6' 2 ) Wt 83.6 kg (184 lb 4.9 oz) SpO2 100% BMI 23.66 kg/m?? Smoking Status Never BSA 2.09 m?? Physician Notes: [x] Reviewed chart and dosimetry [x] Reviewed treatment setup [x] Reviewed port films or images Examination of patient for evaluation and progress of treatment KPS: 90 SUBJECTIVE Mr. Sierra starts his radiation therapy today. He had some family forms which were addressed with him today. I have started him on a 1. Mouthwash. A dietary consult has been requested. His queries were answered. His setup was checked. ASSESSMENT AND PLAN: Erick Sierra is a 72 y.o. male with a diagnosis of Cancer Staging Cancer of base of tongue (CMS/HCC), Staging form: Pharynx - HPV-Mediated Oropharynx, AJCC 8th Edition, Clinical stage from 10/29/2022: Stage I (cT2, cN1, cM0, p16+) - Signed by Germaine Alejandro MD on11/10/2022 Radiation Treatments Active Plans H&N [RtOropharynx] Most recent treatment: Dose planned: 200 cGy (fraction 1 on 11/11/2022) Total: Dose planned: 7,000 cGy (35 fractions) Elapsed Days: 0 Reference Points RtOropharyn+Neck Most recent treatment: Dose given: 200 cGy (on 11/11/2022) Total: Dose given: 200 cGy Elapsed Days: 0 We plan to continue RT following today's status check Physician signature: MD NURA Isabel [facility] CC RADIATION 800 [facility] [address] documented in this encounter Plan of Treatment Upcoming Encounters Date Type Department Care Team ([facility] st Contact Info) Description 10/17/2024 8:00 AM EST Clinical Support Pav CC Head, Neck & Respiratory [address] [address] 10/17/2024 9:00 AM EST Appointment [facility] PET Scan 800 [place] [address] 10/17/2024 10:00 AM EST Appointment [facility] PET Scan 800 [place] [address] 10/17/2024 11:00 AM EST Office Visit Pav CC Head, Neck & Respiratory [address] [address] Juan Pablo Cee MD [address] [facility] [address] [place] [address] 10/17/2024 1:00 PM EST Clinical Support Pav CC Head, Neck & Respiratory [address] [address] 10/17/2024 2:20 PM EST Appointment PAV G Radiology [address] [place] [address] 10/20/2024 3:30 PM EST Office Visit Pav CC Head, Neck & Respiratory [address] [address] Germaine Alejandro MD [address] [facility] [address] [place] [address] documented as of this encounter Visit Diagnoses Diagnosis Cancer of base of tongue (CMS/HCC)- Primary Malignant neoplasm of base of tongue documented in this encounter Additional Health Concerns Assessment Noted Time A fall risk assessment has been complete d for the patient 11/11/2022 11:49 AM EST documented as of this encounter Care Teams Lump Machine Operator Relationship Specialty Start Date End Date Manjit Gorman MD [address] [place], [place] [phone] PCP - General 09/23/22 Olegario Juarez MD [address] [place] [address] Consulting Physician Radiation Oncology 10/29/2207/05 documented as of this encounter
--- OUTSIDE RECORDS SUMMARY | 2024-07-27 06:57 | XMS_ITS | Encounter Summary ---
Author Organization [facility] Address [address] [place] [id number] Care Team Providers Care Team Automobile Assembler Name Role Phone Manjit Gorman MD Primary Care Provider [phone] Olegario Juarez MD Unavailable [phone] Encounter Details Date Type Department Care Team (Latest Contact Info) Description 11/12/2022 12:19 PM EST - 11/12/2022 11:59 PM EST Hospital Encounter [facility] CC Radiation [address] [place] [address] Discharge Disposition: Still a Patient Social History [...] CC Head, Neck & Respiratory [address] [address] 10/17/2024 9:00 AM EST Appointment [facility] PET Scan 800 [place] [address] 10/17/2024 10:00 AM EST Appointment [facility] PET Scan 800 [place] [address] 10/17/2024 11:00 AM EST Office Visit Pav CC Head, Neck & Respiratory 800 [facility] [address] [place] [address] Juan Pablo Cee MD [address] [facility] [address] [place] [address] 10/17/2024 1:00 PM EST Clinical Support Pav CC Head, Neck & Respiratory 800 [facility], 2nd [place] [address] 10/17/2024 2:20 PM EST Appointment PAV G Radiology [address] [place] [address] 10/20/2024 3:30 PM EST Office Visit Pav CC Head, Neck & Respiratory 800 [facility], 2nd [place] [address] Germaine Alejandro MD 800 [facility] [address] [place] [address] documented as of this encounter Visit Diagnoses Not on filedocumented in this encounter Additional Health Concerns Assessment Noted Time A fall risk assessment has been complete d for the patient 11/11/2022 11:49 AM EST documented as of this encounter Care Teams Team Automobile Assembler Relationship Specialty Start Date End Date Manjit Gorman MD [address] [phone] PCP - General 09/23/22 Olegario Juarez MD 800 [facility] [address] [place] [address] Consulting Physician Radiation Oncology 10/29/2207/05 documented as of this encounter
--- OUTSIDE RECORDS SUMMARY | 2024-07-27 06:57 | XMS_ITS | Encounter Summary ---
Author Organization [facility] Address [address] [id number] Care Team Providers Care Sheet Metal Technician Name Role Phone Manjit Gorman MD Primary Care Provider [phone] Olegario Juarez MD Unavailable [phone] Encounter Details Date Type Department Care Team (Latest Contact Info) Description 11/11/2022 11:13 AM EST - 11/11/2022 11:59 PM EST Hospital Encounter P[facility] CC Radiation [address] [place] [address] Olegario Juarez MD [address] [place] [address] Discharge Disposition: Still a Patient [...] Pav CC Head, Neck & Respiratory 800 [facility], [address]nd [place] [address] 10/17/2024 9:00 AM EST Appointment [facility] PET Scan 800 [place] [address] 10/17/2024 10:00 AM EST Appointment [facility] PET Scan 800 [place] [address] 10/17/2024 11:00 AM EST Office Visit Pav CC Head, Neck & Respiratory [address] [place] [address] Juan Pablo Cee MD [address] [facility] [address] [place] [address] 10/17/2024 1:00 PM EST Clinical Support Pav CC Head, Neck & Respiratory [address] [place] [address] 10/17/2024 2:20 PM EST Appointment PAV G Radiology [address] [place] [address] 10/20/2024 3:30 PM EST Office Visit Pav CC Head, Neck & Respiratory [address] [place] [address] Germaine Alejandro MD [address] [place] [address] documented as of this encounter Visit Diagnoses Not on filedocumented in this encounter Additional Health Concerns Assessment Noted Time A fall risk assessment has been complete d for the patient 11/11/2022 11:49 AM EST documented as of this encounter Care Teams Sheet Metal Technician Relationship Specialty Start Date End Date Manjit Gorman MD [address] [place], [place] [phone] PCP - General 09/23/22 Olegario Juarez MD [address] [place] [address] Consulting Physician Radiation Oncology 10/29/2207/05 documented as of this encounter
--- OUTSIDE RECORDS SUMMARY | 2024-07-27 06:57 | XMS_ITS | Encounter Summary ---
Author Organization [facility] Address [address] [id number] Care Team Providers Care Machine Mover Name Role Phone Manjit Gorman MD Primary Care Provider [phone] Olegario Juarez MD Unavailable [phone] Reason for Visit * Reason Onset Date Comments Distress Screen F/U 11/13/2022 Encounter Details Date Type Department Care Team ([facility] st Contact Info) Description 11/13/2022 Telephone Pav CC Head, Neck & Respiratory 800 [facility], 2nd [place] [address] Juliana Cline LCSW [address] [place] [address] Distress Screen F/U Social History Tobacco Use Types Packs/Day Years [...] encounter Miscellaneous Notes * Telephone Encounter - Juliana Cline LCSW - 11/13/2022 8:54 AM EST Visit Type: PsychOncVT: Distress Screening Call Time Spent with Patient and/or Caregivers: Less than 15 minutes Services Provided: Emotional Support Education: Psych-Onc Services Narrative: CLINICAL RESEARCH MANAGER contacted patient via phone in regards to recent distress screen score. CLINICAL RESEARCH MANAGER introduced self and nature of the call. Inquired about patient's well being. Patient reports he is doing well overall. He reports he is getting his third radiation treatment today and starting chemotherapy tomorrow. Patient expressed worry about the unknowns surrounding chemotherapy treatments. CLINICAL RESEARCH MANAGER utilized empathetic and active listening, to offer support and validation. Provided education on Psych-Onc services and assessed for any psychosocial needs. Patient denied any needs at this time and expressed gratitude for call. CLINICAL RESEARCH MANAGER provided contacted information and expressed ongoing availability for resources and support as needed. documented in this encounter Plan of Treatment Upcoming Encounters Date Type Department Care Team (Late st Contact Info) Description 10/17/2024 8:00 AM EST Clinical Support Pav CC Head, Neck & Respiratory 800 [facility] 2nd [place] [address] 10/17/2024 9:00 AM EST Appointment [facility] PET Scan 800 [place] [address] 10/17/2024 10:00 AM EST Appointment [facility] PET Scan 800 [place] [address] 10/17/2024 11:00 AM EST Office Visit Pav CC Head, Neck & Respiratory [address] [address] Juan Pablo Cee MD [address] [place] [address] 10/17/2024 1:00 PM EST Clinical Support Pav CC Head, Neck & Respiratory [address] [address] 10/17/2024 2:20 PM EST Appointment P[facility] G Radiology [address] [place] [address] 10/20/2024 3:30 PM EST Office Visit Pav CC Head, Neck & Respiratory 800 [facility], 2nd [place] [address] Germaine Alejandro MD 800 [facility] [address] [place] [address] documented as of this encounter Visit Diagnoses Not on filedocumented in this encounter Additional Health Concerns Assessment Noted Time A fall risk assessment has been complete d for the patient 11/11/2022 11:49 AM EST documented as of this encounter Care Teams Machine Mover Relationship Specialty Start Date End Date Manjit Gorman MD [address] [place], [place] [id number] PCP - General 09/23/22 Olegario Juarez MD 800 [facility] [address] [place] [address] Consulting Physician Radiation Oncology 10/29/2207/05 documented as of this encounter
--- OUTSIDE RECORDS SUMMARY | 2024-07-27 06:57 | XMS_ITS | Encounter Summary ---
Author Organization [facility] Address [address] [place] [address] Care Team Providers Care Senior Ui Software Engineer Name Role Phone Manjit Gorman MD Primary Care Provider [phone] Olegario Juarez MD Unavailable [phone] Encounter Details Date Type Department Care Team (Latest Contact Info) Description 11/10/2022 Travel Social History Tobacco Use Types Packs/Day [...] Pav CC Head, Neck & Respiratory 800 [facility], 2nd [place] [address] 10/17/2024 9:00 AM EST Appointment [facility] PET Scan 800 [place] [address] 10/17/2024 10:00 AM EST Appointment [facility] PET Scan 800 [place] [address] 10/17/2024 11:00 AM EST Office Visit Pav CC Head, Neck & Respiratory 800 [facility], 2nd [place] [address] Juan Pablo Cee MD [address] [facility] [address] [place] [address] 10/17/2024 1:00 PM EST Clinical Support Pav CC Head, Neck & Respiratory 800 [facility], 2nd [place] [address] 10/17/2024 2:20 PM EST Appointment PAV G Radiology [address] [place] [address] 10/20/2024 3:30 PM EST Office Visit Pav CC Head, Neck & Respiratory 800 [facility], [address]nd [place] [address] Germaine Alejandro MD [address] [place] [address] documented as of this encounter Visit Diagnoses Not on filedocumented in this encounter Additional Health Concerns Assessment Noted Time A fall risk assessment has been complete d for the patient 11/10/2022 10:34 AM EST documented as of this encounter Care Teams Senior Ui Software Engineer Relationship Specialty Start Date End Date Manjit Gorman MD [address] [place], [place] [id number] PCP - General 09/23/22 Olegario Juarez MD [address] [place] [address] Consulting Physician Radiation Oncology 10/29/2207/05 documented as of this encounter
--- OUTSIDE RECORDS SUMMARY | 2024-07-27 06:57 | XMS_ITS | Encounter Summary ---
Author Organization [facility] Address [address] [place], [place] [id number] Care Team Providers Care Director Software Development Name Role Phone Manjit Gorman MD Primary Care Provider [phone] Olegario Juarez MD Unavailable [phone] Reason for Visit * Reason Onset Date Comments Med Refill 11/11/2022 Encounter Details Date Type Department Care Team ([facility] Contact Info) Description 11/11/2022 Refill Pav CC Head, Neck & Respiratory 800 [facility], [address]nd [place] [address] Miguelina Means, RN [facility] Cancer of base of tongue (CMS/HCC) Social [...] Date Type Department Care Team ([facility] Contact Info) Description 10/17/2024 8:00 AM EST Clinical Support Pav CC Head, Neck & Respiratory 800 [facility], [address]nd [place] [address] 10/17/2024 9:00 AM EST Appointment [facility] PET Scan 800 [place] [address] 10/17/2024 10:00 AM EST Appointment [facility] PET Scan [address] [phone] 10/17/2024 11:00 AM EST Office Visit Pav CC Head, Neck & Respiratory 800 [place] [address] Juan Pablo Cee MD [address] [facility] [address] [place] [address] 10/17/2024 1:00 PM EST Clinical Support Pav CC Head, Neck & Respiratory 800 [facility], [address] [place] [address] 10/17/2024 2:20 PM EST Appointment PAV G Radiology [address] [phone] 10/20/2024 3:30 PM EST Office Visit Pav CC Head, Neck & Respiratory 800 [place] [address] Germaine Alejandro MD 800 [facility] [address] [place] [address] documented as of this encounter Visit Diagnoses Diagnosis 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 documented in this encounter Additional Health Concerns Assessment Noted Time A fall risk assessment has been complete d for the patient 11/11/2022 11:49 AM EST documented as of this encounter Care Teams Director Software Development Relationship Specialty Start Date End Date Sherif, Manjit Burris MD [address] [place] [address] PCP - General 09/23/22 Olegario Juarez MD 800 [facility] [address] [place] [address] Consulting Physician Radiation Oncology 10/29/2207/05 documented as of this encounter
--- OUTSIDE RECORDS SUMMARY | 2024-07-27 06:57 | XMS_ITS | Encounter Summary ---
Author Organization [facility] Address [address] [place] [address] Care Team Providers Care Glass Etcher Name Role Phone Manjit Gorman MD Primary Care Provider [phone] Olegario Juarez MD Unavailable [phone] Encounter Details Date Type Department Care Team (Latest Contact Info) Description 11/14/2022 Travel Social History Tobacco Use Types Packs/Day [...] Respiratory 800 [facility], 2nd [place] [address] 10/17/2024 9:00 AM EST Appointment [facility] PET Scan 800 [place] [address] 10/17/2024 10:00 AM EST Appointment [facility] PET Scan 800 [place] [address] 10/17/2024 11:00 AM EST Office Visit Pav CC Head, Neck & Respiratory 800 [facility], 2nd [place] [address] Juan Pablo Cee MD [address] [facility] [address] [place] [address] 10/17/2024 1:00 PM EST Clinical Support Pav CC Head, Neck & Respiratory 800 [facility], 2nd [place] [address] 10/17/2024 2:20 PM EST Appointment PAV G Radiology [address] [place] [address] 10/20/2024 3:30 PM EST Office Visit Pav CC Head, Neck & Respiratory 800 [facility], [address]nd [place] [address] Germaine Alejandro MD [address] [place] [address] documented as of this encounter Visit Diagnoses Not on filedocumented in this encounter Additional Health Concerns Assessment Noted Time A fall risk assessment has been complete d for the patient 11/14/2022 9:25 AM EST documented as of this encounter Care Teams Glass Etcher Relationship Specialty Start Date End Date Manjit Gorman MD [address] [place], [place] [phone] PCP - General 09/23/22 Olegario Juarez MD [address] [place] [address] Consulting Physician Radiation Oncology 10/29/2207/05 documented as of this encounter
--- OUTSIDE RECORDS SUMMARY | 2024-07-27 06:57 | XMS_ITS | Encounter Summary ---
Author Organization [facility] Address [address] [place] [address] Care Team Providers Care Press Machine Feeder Name Role Phone Manjit Gorman MD Primary Care Provider [phone] Olegario Juarez MD Unavailable [phone] Encounter Details Date Type Department Care Team (Latest Contact Info) Description 11/12/2022 Travel Social History Tobacco Use Types Packs/Day [...] Pav CC Head, Neck & Respiratory 800 [facility], 2nd [place] [address] 10/17/2024 9:00 AM EST Appointment [facility] PET Scan 800 [place] [address] 10/17/2024 10:00 AM EST Appointment [facility] PET Scan 800 [place] [address] 10/17/2024 11:00 AM EST Office Visit Pav CC Head, Neck & Respiratory 800 [facility], 2nd [place] [address] Juan Pablo Cee MD [address] [facility] [address] [place] [address] 10/17/2024 1:00 PM EST Clinical Support Pav CC Head, Neck & Respiratory 800 [facility], 2nd [place] [address] 10/17/2024 2:20 PM EST Appointment PAV G Radiology [address] [place] [address] 10/20/2024 3:30 PM EST Office Visit Pav CC Head, Neck & Respiratory 800 [facility], [address]nd [place] [address] Germaine Alejandro MD [address] [place] [address] documented as of this encounter Visit Diagnoses Not on filedocumented in this encounter Additional Health Concerns Assessment Noted Time A fall risk assessment has been complete d for the patient 11/11/2022 11:49 AM EST documented as of this encounter Care Teams Press Machine Feeder Relationship Specialty Start Date End Date Manjit Gorman MD [address] [place], [place] [phone] PCP - General 09/23/22 Olegario Juarez MD [address] [place] [address] Consulting Physician Radiation Oncology 10/29/2207/05 documented as of this encounter
--- OUTSIDE RECORDS SUMMARY | 2024-07-27 06:57 | XMS_ITS | Encounter Summary ---
Author Organization [facility] Address [address] [id number] Care Team Providers Care Monitor Tech Name Role Phone Manjit Gorman MD Primary Care Provider Olegario Juarez MD Unavailable [phone] Encounter Details Date Type Department Care Team (Latest Contact Info) Description 11/10/2022 1:00 AM EST - 11/10/2022 11:59 PM [facility] Hospital Encounter [facility] Radiation [id number] [place] [address] Discharge Disposition: Still a Patient Social History [...] CC Head, Neck & Respiratory [address] [address] 10/17/2024 9:00 AM EST Appointment [facility] PET Scan 800 [place] [address] 10/17/2024 10:00 AM EST Appointment [facility] PET Scan 800 [place] [address] 10/17/2024 11:00 AM EST Office Visit Pav CC Head, Neck & Respiratory 800 [facility] 2nd [place] [address] Juan Pablo Cee MD [address] [facility] [address] [place] [address] 10/17/2024 1:00 PM EST Clinical Support Pav CC Head, Neck & Respiratory 800 [facility], 2nd [place] [address] 10/17/2024 2:20 PM EST Appointment PAV G Radiology [address] [place] [address] 10/20/2024 3:30 PM EST Office Visit Pav CC Head, Neck & Respiratory 800 [facility], 2nd [place] [address] Germaine Alejandro MD 800 [facility] [address] [facility] [address] [place] [address] documented as of this encounter Visit Diagnoses Not on filedocumented in this encounter Additional Health Concerns Assessment Noted Time A fall risk assessment has been complete d for the patient 11/10/2022 10:34 AM EST documented as of this encounter Care Teams Monitor Tech Relationship Specialty Start Date End Date Manjit Gorman MD [address] [phone] PCP - General 09/23/22 Olegario Juarez MD 800 [facility] [address] [place] [address] Consulting Physician Radiation Oncology 10/29/2207/05 documented as of this encounter
--- OUTSIDE RECORDS SUMMARY | 2024-07-27 06:57 | XMS_ITS | Encounter Summary ---
Author Organization [facility] Address [address] [place] [address] Care Team Providers Care Esl Teacher Name Role Phone Manjit Gorman MD Primary Care Provider [phone] Olegario Juarez MD Unavailable [phone] Encounter Details Date Type Department Care Team (Late Contact Info) Description 11/14/2022 Orders Only PAV CC Radiation [id number] [place] [address] Radiation Oncology, Physician, [address] [place], [place] [phone] Social History Tobacco Use Types Packs/Day Years [...] & Respiratory [address], [address] [place] [address] 10/17/2024 9:00 AM EST Appointment [facility] PET Scan 800 [place] [address] 10/17/2024 10:00 AM EST Appointment [facility] PET Scan [address] [place] [address] 10/17/2024 11:00 AM EST Office Visit Pav CC Head, Neck & Respiratory 800 [facility], 2nd [place] [address] Juan Pablo Cee MD [address] [facility] [address] [place] [address] 10/17/2024 1:00 PM EST Clinical Support Pav CC Head, Neck & Respiratory 800 [facility], [address]nd [place] [address] 10/17/2024 2:20 PM EST Appointment PAV G Radiology [address] [place] [address] 10/20/2024 3:30 PM EST Office Visit Pav CC Head, Neck & Respiratory [address] [facility], [address]nd [place] [address] Germaine Alejandro MD 800 [facility] [address] [place] [address] documented as of this encounter Procedures Procedure Name Priority Date/Time Associated Diagnosis Comments RAD ONC ARIA SESSION SUMMARY Routine 11/14/2022 1:22 PM EST documented in this encounter Results * Rad Onc Aria Session Summary (11/14/2022 1:22 PM EST) Course ID C1 ARIA RADIATION ONCOLOGY Course Intent Curative ARIA RADIATION ONCOLOGY Course Start Date 10/30/2022 3:11 PM ARIA RADIATION ONCOLOGY Course First Treatment Date 11/11/2022 11:30 AM ARIA RADIATION ONCOLOGY Course Last Treatment Date 11/14/2022 1:16 PM [facility]A RADIATION ONCOLOGY Course Elapsed Days 3 ARIA RADIATION ONCOLOGY Reference Point ID RtOropharyn+Neck ARIA RADIATION ONCOLOGY Reference Point Dosage Given to Date 8 Gy ARIA RADIATION ONCOLOGY Reference Point Session Dosage Given 2 Gy ARIA RADIATION ONCOLOGY Plan ID RtOropharynx ARIA RADIATION ONCOLOGY Plan Name H&N ARIA RADIATION ONCOLOGY Plan Fractions Treated to Date 4 ARIA RADIATION ONCOLOGY Plan Total Fractions Prescribed 35 ARIA RADIATION ONCOLOGY Plan Prescribed Dose Per Fraction 2 Gy ARIA RADIATION ONCOLOGY Plan Total Prescribed Dose 7,000 CGy ARIA RADIATION ONCOLOGY Plan Primary Reference Point RtOropharyn+Neck ARIA RADIATION ONCOLOGY 11/14/2022 1:22 PM EST Physician Radiation Oncology RADIATION ONCOLO GY ORDERABLES Final Result ARIA RADIATION ONCOLOGY documented in this encounter Visit Diagnoses Not on filedocumented in this encounter Additional Health Concerns Assessment Noted Time A fall risk assessment has been complete d for the patient 11/14/2022 9:25 AM EST documented as of this encounter Care Teams Esl Teacher Relationship Specialty Start Date End Date Manjit Gorman MD [address] [place] [address] PCP - General 09/23/22 Olegario Juarez MD [address] [phone] Consulting Physician Radiation Oncology 10/29/2207/05 documented as of this encounter
--- OUTSIDE RECORDS SUMMARY | 2024-07-27 06:57 | XMS_ITS | Encounter Summary ---
Author Organization [facility] Address [address] [place] [address] Care Team Providers [facility] Manager Name Role Phone Manjit Gorman MD Primary Care Provider [phone] Olegario Juarez MD Unavailable [phone] Reason for Visit * Reason Comments Consult * Consultation (Routine) - Closed Specialty Diagnoses / Procedures Referred By Contac t Referred To Contact Medical Oncology / Hematology and Oncology Diagnoses Cancer of base of tongue (CMS/HCC) Juan Pablo Cee MD [address] [facility] [address] [place] [address] Phone: tel: fax: Referral ID Status Reason Start Date Expiration Date V isits Requested Visits Authorized [id number] Closed Specialty Services Required 10/21/2022 04/21/2024 1 1 Encounter Details Date Type Department Care Team ([facility] st Contact Info) Description 11/10/2022 10:20 AM EST Consult [facility] Head[facility] Neck & Respiratory [address] [facility] [place] [address] Germaine Alejandro MD [address] [facility] [address] [place] [address] 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); Other decreased white blood cell count; CINV (chemotherapy-induced nausea and vomiting); Neoplasm related [...] Sign Reading Time Taken Comments Blood Pressure 167/87 11/10/2022 10:35 AM EST CONSULT, IS IN HOSPITAL, STRESSED Pulse 77 11/10/2022 10:35 AM EST Temperature 37 ??C (98.6 ??F) 11/10/2022 10: 35 AM EST Respiratory Rate 16 11/10/2022 10:3 5 AM EST Oxygen Saturation 99% 11/10/2022 10: 35 AM EST Inhaled Oxygen Concentration - - Weight 83.7 kg (184 lb 8.4 oz) 11/10/2022 10:35 AM EST Height 185 cm (6' 0.84 ) 11/10/2022 10: 35 AM EST Body Mass Index 24.46 11/10/2022 10:35 AM EST documented in this encounter Miscellaneous Notes * Progress Notes - Riley Zhu MBBS - 11/10/2022 10:20 AM EST Patient Information Patient Name: Erick Sierra Date of : 1950 REFERRING PHYSICIAN: Juan Pablo Cee MD [address] [address] Encounter Date: 11/10/2022 Patient Care Team: Manjit Gorman MD as PCP - General Olegario Juarez MD as Consulting Physician (Radiation Oncology) Chief Complaint Patient presents with Consult Treatment Diagnosis: Cancer Staging Cancer of base of tongue (CMS/HCC) Staging form: Pharynx - HPV-Mediated Oropharynx, AJCC 8th Edition - Clinical stage from 10/29/2022: Stage I (cT2, cN1, cM0, p16+) - Signed by Germaine Alejandro MD on 11/10/2022 Erick Sierra is a 72 y.o. male referred to me to establish care for the treatment of Cancer Staging Cancer of base of tongue (CMS/HCC), Staging form: Pharynx - HPV-Mediated Oropharynx, AJCC 8th Edition, Clinical: Stage I. History of Present Illness: he presented with symptoms of a right sided neck mass which prompted an evaluation. he presents forinitial medical oncology evaluation and consultation regarding treatment. he denies fever, or chills, dysuria, hematuria, constipation, melena, diarrhea, hematochezia, hematemesis, abdominal pain, trav rtness of breath, cough, sputum production, mental status changes, neuropathy, chest pain, palpitations, rash, itching, dysphagia, voice changes, hearing loss, visual changes, stridor. He does report difficulty swallowing but no pain. He is eating well and has not lost weight. His is currently admitted to the hospital which is a source of concern for him. 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 CT Chest 10/21/22 showed no metastatic disease. [...] 100 mg/m2 = 208 mg, Intravenous, Once, 0 of 3 cycles aprepitant (Cinvanti) 130 MG/18ML IV 130 mg, 130 mg, Intravenous, Once, 0 of 3 cycles 11/17/2022 - Radiation Therapy The patient saw Olegario Juarez MD for radiation treatment. This is the current list of radiation treatment: Radiation Treatments No radiation treatments to show. 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 Erectile dysfunction 04/15/2022 Hypertension Melanoma (CMS/HCC) 2018 Prostate cancer (CMS/HCC) 09/23/2022 Past Surgical History: Procedure Laterality Date COLONOSCOPY NECK LESION BIOPSY 08/2022 SKIN CANCER EXCISION Melanoma removal, upper arm- 2019 TONSILLECTOMY 1957 VASECTOMY 1988 Family History Problem Relation Name Age of Onset Heart disease Other Hypertension Other Malig Hyperthermia Neg Hx Social History Tobacco Use Smoking status: Never Smokeless tobacco: Never Vaping Use Vaping Use: Never used Substance Use Topics Alcohol use: Yes Comment: socially Drug use: Never Social Determinants of Health with Concerns Alcohol Use: Not on file Financial Resource Strain: Not on file Food Insecurity: Not on file Transportation Needs: Not on file Physical Activity: Not on file Stress: Not on file Social Connections: Not on file Intimate Partner Violence: Not on file Housing Stability: Not on file Allergies and Adverse Drug Reactions Patient has no known allergies. Medications Current Outpatient Medications: amLODIPine-benazepril (Lotrel) 2.5-10 MG [...] EACH MONTH FOR6 MONTHS, Disp: , Rfl: dexamethasone (Decadron) 4 MG tablet, Take 2 tablets (8 mg total) by mouth 1 (one) time each day. Take 2 tablets (8 mg) by mouth once daily for 3 days after each dose of CISplatin, Disp: 18 tablet, Rfl: 0 gabapentin (Neurontin) 600 MG tablet, Take 0.5 tablets (300 mg total) by mouth 3 (three) times a day., Disp: 45 tablet, Rfl: 2 ondansetron (Zofran) 8 MG tablet, Take 1 tablet (8 mg total) by mouth every 8 (eight) hours if needed for nausea or vomiting., Disp: 30 tablet, Rfl: 2 prochlorperazine (Compazine) 10 MG tablet, Take 1 tablet (10 mg total) by mouth every 6 (six) hoursif needed for nausea or vomiting., Disp: 30 tablet, Rfl: 5 ROS: A 14 point review of systems was performed and is negative except as recorded on the patient intake form or reported in the history of present illness. No questionnaires on file. Objective Performance Status 0: Fully active, able to carry on all pre-disease performance without restriction Visit Vitals BP (!) 167/87 (BP Location: Left arm, Patient Position: Sitting, BP Cuff Size: Adult) Comment: CONSULT, IS IN HOSPITAL, STRESSED Pulse 77 Temp 37 ??C (98.6 ??F) (Oral) Resp 16 EXAM Physical Exam Constitutional: General: He is [...] Affect: Mood normal. Behavior: Behavior normal. LABORATORIES AND STUDIES: reviewed by me personally today to monitor for cancer related drug toxicity and treatment related intermediate frame tender toxicity CBC WBC 4.93 Hb 14.6 Plt 262 Hct 44.3 ANC 3.11 BMP Na 140 Cl 105 BUN 20 Glu 105 (H) K 4.8 Co2 25 Cr 1.10 Ca 9.7 LFT AST 24 AlkPhos 69 T Prot 7.2 ALK 19 Bili 0.4 Alb ?? Radiology: I independently visualized the recent imaging given the patient's symptoms and oncologic history PET/CT FDG Skull Base To Mid Thigh on 10/21/22 Impression: 1. Hypermetabolic right base of tongue mass, compatible with the biopsy established diagnosis of squamous cell carcinoma. 2. Hypermetabolic right level IIA lymphadenopathy, compatible with bala disease. In addition, there is a probable metastatic right level IIB lymph node. 3. No definitive FDG PET evidence of metabolically active distant metastatic disease outside of thehead/neck. 4. Cluster of mildly hypermetabolic, subcentimeter peribronchovascular pulmonary nodules at the medial right lung base, most suggestive of an infectious/inflammatory process such as aspiration pneumonitis or sequela thereof. Recommend short-term follow-up chest CT within 3 months. 5. Mild, tubular FDG avidity associated with circumferential thickening of the distal esophagus, most probably patient registration representative of reflux esophagitis. Clinical correlation is recommended to guide the need for any additional workup. 6. Mild hypermetabolism at the cutaneous surface of the left post-auricular region, for which direct visualization is recommended to exclude a suspicious cutaneous lesion. By electronically signing this report, I, the attending physician, attest that I have personally reviewed the images/data for the above examination(s) and agree with the final edited report. Dictated by Anselmo Burt DO on 10/21/2022 11:27 AM Signed by Filemon Ley MD on 10/21/2022 2:[address] Chest w IV Contrast on 10/21/22 Impression: No evidence of neoplastic disease progression. Dictated by Christen Gautam MD on 10/21/2022 1:57 PM Signed by Christen Gautam MD on 10/21/2022 2:08 PM Pathology: Final Diagnosis (no units) Date/Time Value 10/09/2022 1559 A. 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 Comment (no units) Date/Time Value 09/15/2022 1112 Review of outside IHC shows diffuse strong expression (>90%) for p16 in groups of metastatic squamous cells in the lymph node (controls are appropriately reactive). Assessment/Plan 1. Cancer management : Erick Sierra is a 72 y.o. male with Cancer Staging Cancer of base of tongue (CMS/HCC), Staging form: Pharynx - HPV-Mediated Oropharynx, AJCC 8th Edition, Clinical: Stage I with metastasis to lymph nodes. This represents a life threatening illness forwhich urgent cancer treatment is indicated. - Dr. Alejandro and I obtained information from patient. -We independently visualized the recent imaging given the patient's symptoms and oncologic history and discussed the current radiology findings with the patient in detail and answered all questions. We agree that this shows localized squamous cell carcinoma of the base of tongue. - We extensively reviewed the staging and prognosis of this Squamous cancer of BOT and the risk andbenefits of starting Cisplatin and provided information sheets. This treatment will require ongoingmonitoring of toxicity by me, due to the risks of severe side effects from chemotherapy. - The selection, dosing and administration of anti-cancer [...] of associated toxicities in patients with cancer. - We reviewed the records from [facility] and outside records from [facility] and interpreted these recordsin light of the current diagnosis and plan. We agree with the assessment by these physicians and have reviewed and updated the problem list and medical history. Wediscussed this case with Dr. Juarez in detail and coordinated the care of the patient. - I reviewed liver and renal function as well as bone marrow function in relationship to this patient's ability to tolerate systemic cancer treatment - Dr. Alejandro and I counseled the patient regarding risk and benefits of cisplatin chemotherapy including pancytopenia, infection, injury to organs (kidneys, liver, nerves), nausea, vomiting and fatigue as well as possible alopecia, and provided teaching materials on these risks. I obtained informed consent today. I have written and calculated this chemotherapy. I also provided teaching sheets andeducation materials to the patient and answered all questions. I gave new scripts for Zofran 8 mg q8 hrs x 3 days after chemo, Decadron pre and post medication and Compazine 10 mg q6hr prn nausea andteaching sheets on how to take these medications. - Plan to start concurrent q3 weeks Cisplatin on Thursday, November 14. He begins radiation treatment tomorrow. - RTC for chemo 11/14/22 2. Pain related to neoplasm: chronic Pain Scale: 1 - Prescribed gabapentin for initial Rx for throat pain - If the patient continues to experience pain directly related to their neoplasm requiring monitoring and adjustments in dosage and frequency of narcotic and adjunctive medications by me. RL report reviewed and will be reviewed periodically. 4. Anticipated Chemotherapy Induced Nausea: - I prescribed ondansetron, compazine and will monitor for nausea and vomiting. 5. Chemotherapy Induced Immunodeficiency: Pancytopenia present: No - Will monitor via periodic blood tests 6. Electrolyte management : - will monitor for now Case discussed with Dr. Alejandro who was involved in the formulation of the plan above. Riley Zhu MD Hematology/Oncology Fellow Pager: [phone] Orders Placed This Encounter Procedures CBC and Differential Comprehensive Metabolic Panel, Plasma Thyroid Stimulating Hormone, Plasma CBC and differential Comprehensive metabolic panel Magnesium CBC and differential Comprehensive metabolic panel Magnesium Cosigned by Germaine Alejandro MD at 11/10/2022 6:10 PM EST Associated attestation - Germaine Alejandro MD - 11/10/2022 6:10 PM EST Attending Attestation Statement: Today, I saw and evaluated the patient with the resident/fellow. Idiscussed the case with the resident/fellow and agree with the findings and plan as documented. I have reviewed the above notes and edited where appropriate reflecting my evaluation and assessment ofthe patient; I concur with the physical exam above, I edited the exam and medical history and I repeated relevant portions of the exam and the plans have been generated by me and under my supervision. Exam shows asymmetry right base of tongue and right sided lymphadenopathy, and I personally visualized the radiology scans above and I personally discussed the plans outlined above at length with the patient. Germaine Alejandro MD * Progress Notes - John Giraldo PharmD - 11/10/2022 10:20 AM EST Pharmacy Hemtatology/Oncology Patient Education Note Erick Sierra is a 72 y.o. male with BOT SCC being treated with HD cisplatin + XRT. The patient has no prior experience with chemotherapy and has no particular concerns at this time. Common and clinically significant adverse effects of this regimen were covered prior to chemotherapy initiation. This includes, but is not limited to, allergic reactions, alopecia, myelosuppression, N/V/D, fatigue, n europathies and ototoxicity. The patient was very participatory in the counseling process, asking numerous questions. At this time they are able to verbalize understanding and has no further questions. Provided with written and verbal information. John Giraldo PharmD, [facility] Oncology Clinical Pharmacist * Progress Notes - John Giraldo PharmD - 11/10/2022 10:20 AM EST Pharmacy Hematology/Oncology Treatment Follow-Up Note Erick Sierra [...] regimen. [x] Follow-Up Clinical Review for Cycle 1 Interval History: Dosing Wt: 83.7 kg Dosing Ht: 185 cm DosingBSA: 2.08 m2 Recent Labs: Lab Results Component Value Date WBC 4.93 11/10/2022 HGB 14.6 11/10/2022 HCT 44.3 11/10/2022 MCV 91 11/10/2022 PLT 262 11/10/2022 Lab Results Component Value Date GLUCOSE 105 (H) 11/10/2022 CALCIUM 9.7 11/10/2022 NA 140 11/10/2022 K 4.8 11/10/2022 CO2 25 11/10/2022 CL 105 11/10/2022 BUN 20 11/10/2022 CREATININE 1.10 11/10/2022 Lab Results Component Value Date ALT 19 11/10/2022 AST 24 11/10/2022 ALKPHOS 69 11/10/2022 BILITOT 0.4 11/10/2022 Lab Results Component Value Date NEUTROABS 3.11 11/10/2022 No results found for: MG Lab Results Component Value Date TSH 1.45 11/10/2022 No results found for: URINEPRO Vitals: Visit Vitals BP (!) 167/87 (BP Location: Left arm, Patient Position: Sitting, BP Cuff Size: Adult) Comment: CONSULT, IS IN HOSPITAL, STRESSED Pulse 77 Temp 37 ??C (98.6 ??F) (Oral) Resp 16 Other Relevant Monitoring: Study Patient: no Treatment Plan: Cisplatin 100 mg/m2 (208 mg) IV D1 Every 21 days [x] No dose adjustments made Current Treatment Plan History: HD cisplatin + XRT C1: 11/14/22 Prior Treatment History: N/a Assessment/Plan: Patient will return to clinic in 3 weeks. Will follow-up at that time. Pharmacist Attestation: John Giraldo, PharmD 11/14/2022 9:13 AM documented in this encounter Plan of Treatment Upcoming Encounters Date Type Department Care Team ([facility] st Contact Info) Description 10/17/2024 8:00 AM EST Clinical Support [facility] Head[facility] Neck [facility] Respiratory [address] [phone] 10/17/2024 9:00 AM EST Appointment [facility] PET Scan [address] [place] [address] 10/17/2024 10:00 AM EST Appointment [facility] PET Scan [address] [place] [address] 10/17/2024 11:00 AM EST Office Visit [facility] [address] [phone] Juan Pablo Cee MD [address] [facility] [address] [place] [address] 10/17/2024 1:00 PM EST Clinical Support [facility] Respiratory [address] [phone] 10/17/2024 2:20 PM EST Appointment [facility] Radiology [address] [place] [address] 10/20/2024 3:30 PM EST Office Visit [facility] Respiratory [address] [phone] Germaine Alejandro MD [address] [facility] [address] [facility] [address] [place] [address] [place] [address] documented as of this encounter Procedures Procedure Name Priority Date/Time Associated Diagnosis Comments CBC WITH AUTO DIFFERENTIAL Routine 11/10/2022 10:42 AM EST Cancer of base of tongue (CMS/HCC) TSH Routine 11/10/2022 10:42 AM EST Cancer of base of tongue (CMS/HCC) COMPREHENSIVE METABOLIC PANEL, PLASMA Routine 11/10/2022 10:42 AM EST Cancer of base of tongue (CMS/HCC) documented in this encounter Results * Magnesium (12/03/2022 1:23 PM EDT) Magnesium, Plasma 1.9 1.9 - 2.4 mg/dL 12/03/2022 2:03 PM EDT [facility] Blood Venous blood specimen / Unknown Venipuncture / Unknown 12/03/2022 1:23 PM EDT 12/03/2022 1:31 PM EDT Germaine Alejandro MD LAB BLOOD ORDERABLES Final R esult Performing Organization Address City/State/[facility] Co de Phone Number [facility] [address] [place] [address] * (ABNORMAL) Comprehensive metabolic panel (12/03/2022 1:23 PM EDT) Glucose, Plasma 95 74 - 99 mg/dL 12/03/2022 2:03 PM EDT [facility] BUN, Plasma 20 8 - 23 mg/dL 12/03/2022 2:03 PM EDT [facility] Creatinine, Plasma 1.16 0.80 - 1.30 mg/dL 12/03/2022 2:03 PM EDT [facility] BUN/Creatinine Ratio 17 12/03/2022 2:03 PM EDT [facility] Sodium, Plasma 138 136 - 145 mmol/L 12/03/2022 2:03 PM EDT [facility] Potassium, Plasma 5.0(H) 3.7 - 4.8 mmol/L 12/03/2022 2:03 PM EDT [facility] Chloride, Plasma 100 97 - 107 mmol/L 12/03/2022 2:03 PM EDT [facility] CO2, Plasma 29 22 - 29 mmol/L 12/03/2022 2:03 PM EDT [facility] Anion Gap 9 6 - 16 mmol/L 12/03/2022 2:03 PM EDT [facility] Total Calcium, Plasma 9.5 8.9 - 10.2 mg/dL 12/03/2022 2:03 PM EDT [facility] Total Protein 6.8 6.3 - 7.9 g/dL 12/03/2022 2:03 PM EDT [facility] Albumin, Plasma 4.2 3.5 - 5.2 g/dL 12/03/2022 2:03 PM EDT [facility] AST, Plasma 18(L) 19 - 48 U/L 12/03/2022 2:03 PM EDT [facility] ALT, Plasma 13 11 - 41 U/L 12/03/2022 2:03 PM EDT [facility] Alkaline Phosphatase, Plasma 69 40 - 115 U/L 12/03/2022 2:03 PM EDT [facility] Total Bilirubin, Plasma <0.2(L) 0.2 - 1.1 mg/dL 12/03/2022 2:03 PM EDT [facility] eGFRcr 66.9 mL/min/1.7 3m*2 12/03/2022 2:03 PM EDT [facility] Comment: Reported eGFRcr in mL/min/1.73m2 is based the CKD-EPI 2020 equation that does not use a race coefficient. Effective 04/02/22 our laboratory changed the eGFR calculation to the CKD-EPI 202 equation from the previously reported eGFR, based on the MDRD equation. ??For comparisons between the two equations, please see laboratory website: ??[email or web address] Blood Venous blood specimen / Unknown Venipuncture / Unknown 12/03/2022 1:23 PM EDT 12/03/2022 1:31 PM EDT Germaine Alejandro MD LAB BLOOD ORDERABLES Final R esult [facility] [address] [place] [address] * (ABNORMAL) CBC and differential (12/03/2022 1:23 PM EDT) WBC Count 2.58(L) 3.70 - 10.30 10*3/uL LAB HEMATOLOGY METHOD 12/03/2022 1:41 PM EDT [facility] RBC Count 4.34(L) 4.60 - 6.10 10*6/uL LAB HEMATOLOGY METHOD 12/03/2022 1:41 PM EDT [facility] HGB 13.5(L) 13.7 - 17.5 g/dL LAB HEMATOLOGY METHOD 12/03/2022 1:41 PM EDT [facility] HCT 39.1(L) 40.0 - 51.0 % LAB HEMATOLOGY METHOD 12/03/2022 1:41 PM EDT [facility] Platelet Count 200 155 - 369 10*3/uL LAB HEMATOLOGY METHOD 12/03/2022 1:41 PM EDT [facility] MCV 90 79 - 98 fL LAB HEMATOLOGY METHOD 12/03/2022 1:41 PM EDT [facility] MCH 31.1 26.0 - 32.0 pg LAB HEMATOLOGY METHOD 12/03/2022 1:41 PM EDT [facility] MCHC 34.5 30.7 - 35.5 g/dL LAB HEMATOLOGY METHOD 12/03/2022 1:41 PM EDT [facility] RDW 13.1 11.5 - 14.5 % LAB HEMATOLOGY METHOD 12/03/2022 1:41 PM EDT [facility] MPV 8.7(L) 8.8 - 12.5 fL LAB HEMATOLOGY METHOD 12/03/2022 1:41 PM EDT [facility] nRBC 0.0 <=0.0 per 100 WBCs LAB HEMATOLOGY METHOD 12/03/2022 1:41 PM EDT [facility] Differential Type Automated LAB HEMATOLOGY METHOD 12/03/2022 1:41 PM EDT [facility] Neutrophils % 63.0 % LAB HEMATOLOGY METHOD 12/03/2022 1:41 PM EDT [facility] Lymphocytes % 12.0 % LAB HEMATOLOGY METHOD 12/03/2022 1:41 PM EDT [facility] Monocytes % 19.0 % LAB HEMATOLOGY METHOD 12/03/2022 1:41 PM EDT [facility] Eosinophils % 5.0 % LAB HEMATOLOGY METHOD 12/03/2022 1:41 PM EDT [facility] Basophils % 1.0 % LAB HEMATOLOGY METHOD 12/03/2022 1:41 PM EDT [facility] Immature Granulocytes % 0.0 % LAB HEMATOLOGY METHOD 12/03/2022 1:41 PM EDT [facility] Neutrophils Absolute 1.61 1.60 - 6.10 10*3/uL LAB HEMATOLOGY METHOD 12/03/2022 1:41 PM EDT [facility] Lymphocytes Absolute 0.32(L) 1.20 - 3.90 10*3/uL LAB HEMATOLOGY METHOD 12/03/2022 1:41 PM EDT [facility] Monocytes Absolute 0.50 0.30 - 0.90 10*3/uL LAB HEMATOLOGY METHOD 12/03/2022 1:41 PM EDT [facility] Eosinophils Absolute 0.12 0.00 - 0.50 [...] ORDERABLES Final R esult Performing Organization Address City/[facility]/ZIP Co de Phone Number [facility] [address] [place] [address] * Thyroid Stimulating Hormone, Plasma (11/10/2022 10:42 AM EST) Thyroid Stimulating Hormone, Plasma 1.45 0.40 - 4.20 uIU/mL 11/10/2022 11:48 AM EST [facility] Blood Venous blood specimen / Unknown Venipuncture / Unknown 11/10/2022 10:42 AM EST 11/10/2022 11:11 AM EST Germaine Alejandro MD LAB BLOOD ORDERABLES Final R esult [facility] [address] [place] [address] * (ABNORMAL) Comprehensive Metabolic Panel, Plasma (11/10/2022 10:42 AM EST) [facility] Glucose, Plasma 105(H) 74 - 99 mg/dL 11/10/2022 11:48 AM [facility] BUN, Plasma 20 8 - 23 mg/dL 11/10/2022 11:48 AM [facility] Creatinine, Plasma 1.10 0.80 - 1.30 mg/dL 11/10/2022 11:48 AM [facility] BUN/Creatinine Ratio 18 11/10/2022 11:48 AM [facility] Sodium, Plasma 140 136 - 145 mmol/L 11/10/2022 11:48 AM [facility] Potassium, Plasma 4.8 3.7 - 4.8 mmol/L 11/10/2022 11:48 AM [facility] Chloride, Plasma 105 97 - 107 mmol/L 11/10/2022 11:48 AM [facility] CO2, Plasma 25 22 - 29 mmol/L 11/10/2022 11:48 AM [facility] Anion Gap 10 6 - 16 mmol/L 11/10/2022 11:48 AM [facility] Total Calcium, Plasma 9.7 8.9 - 10.2 mg/dL 11/10/2022 11:48 AM [facility] Total Protein 7.2 6.3 - 7.9 g/dL 11/10/2022 11:48 AM [facility] Albumin, Plasma 4.5 3.5 - 5.2 g/dL 11/10/2022 11:48 AM [facility] AST, Plasma 24 19 - 48 U/L 11/10/2022 11:48 AM [facility] [facility] ALT, Plasma 19 11 - 41 U/L 11/10/2022 11:48 AM [facility] Alkaline Phosphatase, Plasma 69 40 - 115 U/L 11/10/2022 11:48 AM [facility] Total Bilirubin, Plasma 0.4 0.2 - 1.1 mg/dL 11/10/2022 11:48 AM [facility] eGFRcr 71.3 mL/min/1.7 3m*2 11/10/2022 11:48 AM [facility] Comment: Reported eGFRcr in mL/min/1.73m2 is based the CKD-EPI 2020 equation that does not use a race coefficient. Effective 04/02/22 our laboratory changed the eGFR calculation to the CKD-EPI 2020 equation from the previously reported eGFR, based on the MDRD equation. ??For comparisons between the two equations, please see laboratory website: ??[email or web address] Blood Venous blood specimen / Unknown Venipuncture / Unknown 11/10/2022 10:42 AM EST 11/10/2022 11:11 AM EST Germaine Alejandro MD LAB BLOOD ORDERABLES Final R esult [facility] [address] [place] [address] * (ABNORMAL) CBC and Differential (11/10/2022 10:42 AM EST) WBC Count 4.93 3.70 - 10.30 10*3/uL LAB HEMATOLOGY METHOD 11/10/2022 11:20 AM EST [facility] RBC Count 4.88 4.60 - 6.10 10*6/uL LAB HEMATOLOGY METHOD 11/10/2022 11:20 AM EST [facility] HGB 14.6 13.7 - 17.5 g/dL LAB HEMATOLOGY METHOD 11/10/2022 11:20 AM EST [facility] HCT 44.3 40.0 - 51.0 % LAB HEMATOLOGY METHOD 11/10/2022 11:20 AM EST [facility] Platelet Count 262 155 - 369 10*3/uL LAB HEMATOLOGY METHOD 11/10/2022 11:20 AM EST [facility] MCV 91 79 - 98 fL LAB HEMATOLOGY METHOD 11/10/2022 11:20 AM EST [facility] MCH 29.9 26.0 - 32.0 pg LAB HEMATOLOGY METHOD 11/10/2022 11:20 AM EST [facility] MCHC 33.0 30.7 - 35.5 g/dL LAB HEMATOLOGY METHOD 11/10/2022 11:20 AM EST [facility] RDW 13.2 11.5 - 14.5 % LAB HEMATOLOGY METHOD 11/10/2022 11:20 AM EST [facility] MPV 9.3 8.8 - 12.5 fL LAB HEMATOLOGY METHOD 11/10/2022 11:20 AM EST [facility] nRBC 0.0 <=0.0 per 100 WBCs LAB HEMATOLOGY METHOD 11/10/2022 11:20 AM EST [facility] Differential Type Automated LAB HEMATOLOGY METHOD 11/10/2022 11:20 AM EST [facility] Neutrophils % 64.0 % LAB HEMATOLOGY METHOD 11/10/2022 11:20 AM EST [facility] Lymphocytes % 20.0 % LAB HEMATOLOGY METHOD 11/10/2022 11:20 AM EST [facility] Monocytes % 13.0 % LAB HEMATOLOGY METHOD 11/10/2022 11:20 AM EST [facility] Eosinophils % 2.0 % LAB HEMATOLOGY METHOD 11/10/2022 11:20 AM EST [facility] Basophils % 1.0 % LAB HEMATOLOGY METHOD 11/10/2022 11:20 AM EST [facility] Immature Granulocytes % 0.0 % LAB HEMATOLOGY METHOD 11/10/2022 11:20 AM EST [facility] Neutrophils Absolute 3.11 1.60 - 6.10 10*3/uL LAB HEMATOLOGY METHOD 11/10/2022 11:20 AM EST [facility] Lymphocytes Absolute 1.00(L) 1.20 - 3.90 10*3/uL LAB HEMATOLOGY METHOD 11/10/2022 11:20 AM EST [facility] Monocytes Absolute 0.64 0.30 - 0.90 10*3/uL LAB HEMATOLOGY METHOD 11/10/2022 11:20 AM EST [facility] Eosinophils Absolute 0.12 0.00 - 0.50 10*3/uL LAB HEMATOLOGY METHOD 11/10/2022 11:20 AM EST [facility] Basophils Absolute 0.05 0.00 - 0.10 10*3/uL LAB HEMATOLOGY METHOD 11/10/2022 11:20 AM EST [facility] Immature Granulocytes Absolute 0.01 0.00 - 0.06 10*3/uL LAB HEMATOLOGY METHOD 11/10/2022 11:20 AM EST [facility] Blood Venous blood specimen / Unknown Venipuncture / Unknown 11/10/2022 10:42 AM EST 11/10/2022 11:11 AM EST [facility] - 11/10/2022 11:20 AM EST Therapeutic decision making should be based on absolute values, rather than percentages. 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 Other decreased white blood cell count CINV (chemotherapy-induced nausea and vomiting) Neoplasm related pain Neoplasm related pain (acute) (chronic) documented in this encounter Additional Health Concerns Assessment Noted Time A fall risk assessment has been complete d for the patient 11/10/2022 10:34 AM EST documented as of this encounter Care Teams Sports Centre Manager Relationship Specialty Start Date End Date Manjit Gorman MD [address] [place], [place] [id number] PCP - General 09/23/22 Olegario Juarez MD [address] [place] [address] [address] [place] [address] Consulting Physician Radiation Oncology 10/29/2207/05 documented as of this encounter
--- OUTSIDE RECORDS SUMMARY | 2024-07-27 06:57 | XMS_ITS | Encounter Summary ---
Author Organization [facility] Address [address] [place] [address] Care Team Providers Care Paste Up Copy Camera Operator Name Role Phone Manjit Gorman MD Primary Care Provider [phone] Olegario Juarez MD Unavailable [phone] Encounter Details Date Type Department Care Team (Late st Contact Info) Description 11/14/2022 Nutrition [facility] [address] [place] [phone] [place] [address] Social History Tobacco Use Types Packs/Day Years [...] Clinician Note - J[address]ene [address], RD - 11/14/2022 1:08 PM EST ONCOLOGY NUTRITION ASSESSMENT NOTE Nutrition Visit Type: Nutrition consult Visit Location: Chemotherapy Referral source: MARIA A Sierra is a 72 y.o. male who was referred to [facility] dietitian for oncology nutrition counseling. Patient Active Problem List Diagnosis Allergic rhinitis due to pollen Benign lipomatous neoplasm of skin and subcutaneous tissue of trunk Bilateral elbow fractures Cramp and spasm Dysplastic nevus Erectile dysfunction Finger fracture, left Hypertension Macular pucker Onychomycosis Other decreased white blood cell count Other idiopathic scoliosis, thoracic region Prediabetes Prostate cancer (CMS/HCC) Scoliosis Skin cancer Second hand smoke exposure Cancer of base of tongue (CMS/HCC) CINV (chemotherapy-induced nausea and vomiting) Neoplasm related pain Outpatient Medications Prior to Visit Medication Sig Dispense Refill amLODIPine-benazepril (Lotrel) 2.5-10 MG capsule Take 1 capsule by mouth every night. BLACK ELDERBERRY PO Take 1 tablet by mouth every night. dexamethasone (Decadron) 4 MG tablet Take 2 tablets (8 mg total) by mouth 1 (one) time each day. Take 2 tablets (8 mg) by mouth once daily for 3 days after each dose of CISplatin 18 tablet 0 gabapentin (Neurontin) 600 MG tablet Take 0.5 tablets (300 mg total) by mouth 3 (three) times a day. 45 tablet 2 multivitamin (Theragran-M) tablet Take 1 tablet by mouth every night. ondansetron (Zofran) 8 MG tablet Take 1 tablet (8 mg total) by mouth every 8 (eight) hours if needed for nausea or vomiting. 30 tablet 2 prochlorperazine (Compazine) 10 MG tablet Take 1 tablet (10 mg total) by mouth every 6 (six) hours if needed for nausea or vomiting. 30 tablet 5 tadalafil (Cialis) 5 MG tablet TAKE 1 OR 2 TABLETS BY MOUTH DAILY NEEDED FOR ED terbinafine (LamISIL) 250 MG tablet TAKE 1 TABLET BY MOUTH FOR THE FIRST 10 DAYS OF EACH MONTH FOR 6 MONTHS Facility-Administered Medications Prior to Visit Medication Dose Route Frequency Provider Last Rate Last Admin [COMPLETED] dexamethasone (Decadron) tablet 12 mg 12 mg Oral Once Germaine Alejandro MD 12 mg at 11/14/22 0953 potassium chloride IVPB 10 mEq 10 mEq Intravenous q1h Germaine Alejandro MD 100 mL/hr at 11/14/22 1217 10 mEq at 11/14/22 1217 sodium chloride with magnesium sulfate 2 g 1,000 mL infusion 999 mL/hr Intravenous Once Germaine Alejandro MD 999 mL/hr at 11/14/22 1223 999 mL/hr at 11/14/22 1223 Past Medical, Surgical, Family and Social History: Past Medical History: Diagnosis Date Allergic rhinitis [...] use: Yes Comment: socially Drug use: Never Current Outpatient Medications: amLODIPine-benazepril (Lotrel) 2.5-10 MG capsule, Take 1 capsule by mouth every night., Disp: , Rfl: BLACK ELDERBERRY PO, Take 1 tablet by mouth every night., Disp: , Rfl: dexamethasone (Decadron) 4 MG [...] a day., Disp: 45 tablet, Rfl: 2 multivitamin (Theragran-M) tablet, Take 1 tablet by mouth every night., Disp: , Rfl: ondansetron (Zofran) 8 MG tablet, Take 1 tablet (8 mg total) by mouth every 8 (eight) hours if needed for nausea or vomiting., Disp: 30 tablet, Rfl: 2 prochlorperazine (Compazine) 10 MG tablet, Take 1 tablet (10 mg total) by mouth every 6 (six) hoursif needed for nausea or vomiting., Disp: 30 tablet, Rfl: 5 tadalafil (Cialis) 5 MG tablet, TAKE 1 OR 2 TABLETS BY MOUTH DAILY NEEDED FOR ED, Disp: , Rfl: terbinafine (LamISIL) 250 MG tablet, TAKE 1 TABLET BY MOUTH FOR THE FIRST 10 DAYS OF EACH MONTH FOR6 MONTHS, Disp: , Rfl: No current facility-administered medications for this visit. Facility-Administered Medications Ordered in Other Visits: potassium chloride IVPB 10 mEq, 10 mEq, Intravenous, q1h, Germaine Alejandro MD, Last Rate: 100 mL/hr at 11/14/22 1217, 10 mEq at 11/14/22 1217 sodium chloride with magnesium sulfate 2 g 1,000 mL infusion, 999 mL/hr, Intravenous, Once, Tyrell Alejandro MD, Last Rate: 999 mL/hr at 11/14/22 1223, 999 mL/hr at 11/14/22 1223 Nutrition Assessment Anthropometrics: Wt Readings from Last 5 Encounters: 11/14/22 84.1 kg (185 lb 6.5 oz) 11/11/22 83.6 kg (184 lb 4.9 oz) 11/10/22 83.7 kg (184 lb 8.4 oz) 10/29/22 82.5 kg (181 lb 14.1 oz) 10/21/22 81.2 kg (179 lb 0.2 oz) Ht Readings from Last 1 Encounters: 11/14/22 1.88 m (6' 2 ) BMI Readings from Last 1 Encounters: 11/14/22 23.80 kg/m?? Biochemical: Lab Results Component Value Date GLUCOSE 105 (H) 11/10/2022 CALCIUM 9.7 11/10/2022 NA 140 11/10/2022 K 4.8 11/10/2022 CO2 25 11/10/2022 CL 105 11/10/2022 BUN 20 11/10/2022 CREATININE 1.10 11/10/2022 Interval History: Pt beginning chemoradiation for base of tongue cancer. Weight presently stable without feeding difficulty. Expresses concern regarding who has been ill and future difficulty getting to treatmentshould he be unable to drive. Estimated Needs: Energy: 2236-6343 kcal (28-32 kcal/kg) Protein: 93-109 g (1.1-1.3 g/kg) Fluid: 8637-6022 mL Needs calculated based on: Current Body Weight Feeding Route: PO Barriers to Intake: anticipated Nutrition Diagnosis Predicted suboptimal energy intake related to chemoradiation for oral cancer as evidenced by nutrition consult. Status of Nutrition Diagnosis: Ongoing Nutrition Intervention -Educated pt r/t weight maintenance and management of nutrition related side effects including dry/sore mouth, pain/difficulty swallowing, change in taste -Provided suggestions for increasing kcal/pro with food choices, fortifying foods, tolerable textures -Discussed option of Boost Plus via [facility] with rx for future need -Discussed Psych-Onc services and enc pt to reach out as needed; has contact number Nutrition education provided: Head & Neck Quality of Life handout and NCI Eating Hints Nutrition Monitor and Evaluation -Oral intake -Weight Patient/Caregiver verbalized understanding of recommendations and plan. yes RD contact information was provided and pt was encouraged to contact with additional nutrition-related questions/concerns PRN. documented in this encounter Plan of Treatment Upcoming Encounters Date Type Department Care Team (Late st Contact Info) Description 10/17/2024 8:00 AM EST Clinical Support [facility] Res[facility] [address] [facility] [address]nd [place] [address] 10/17/2024 9:00 AM EST Appointment [facility] PET Scan [address] [place] [phone] 10/17/2024 10:00 AM EST Appointment [facility] PET Scan [address] [place] [address] 10/17/2024 11:00 AM EST Office Visit [facility] [address] [facility] [address] [place] [address] Juan Pablo Cee MD [address] [facility] [address] [place] [address] 10/17/2024 1:00 PM EST Clinical Support [facility] [address] [address] 10/17/2024 2:20 PM EST Appointment [facility] Radiology [address] [phone] 10/20/2024 3:30 PM EST Office Visit [facility] 800 [facility], 2nd [place] [phone] Germaine Alejandro MD 800 [facility] [address] [place] [phone] documented as of this encounter Visit Diagnoses Not on filedocumented in this encounter Additional Health Concerns Assessment Noted Time A fall risk assessment has been complete d for the patient 11/14/2022 9:25 AM EST documented as of this encounter Care Teams Paste Up Copy Camera Operator Relationship Specialty Start Date End Date Manjit Gorman MD [address] [place], [place] [phone] PCP - General 09/23/22 Olegario Juarez MD 800 [facility] [address] [place] [address] Consulting Physician Radiation Oncology 10/29/2207/05 documented as of this encounter
--- OUTSIDE RECORDS SUMMARY | 2024-07-27 06:57 | XMS_ITS | Encounter Summary ---
Author Organization [facility] Address [address] [place] [address] Care Team Providers Care Systems Software Specialist Name Role Phone Manjit Gorman MD Primary Care Provider [phone] Olegario Juarez MD Unavailable [phone] Encounter Details Date Type Department Care Team (Latest Contact Info) Description 10/29/2022 Travel Social History Tobacco Use Types Packs/Day [...] Respiratory 800 [facility], 2nd [place] [phone] 10/17/2024 9:00 AM EST Appointment [facility] PET Scan 800 [place] [address] 10/17/2024 10:00 AM EST Appointment [facility] PET Scan 800 [place] [phone] 10/17/2024 11:00 AM EST Office Visit [facility] 800 [facility], 2nd [place] [phone] Juan Pablo Cee MD [address] [facility] [address] [place] [address] 10/17/2024 1:00 PM EST Clinical Support [facility] 800 [facility], 2nd [place] [address] 10/17/2024 2:20 PM EST Appointment [facility] [address] [place] [phone] 10/20/2024 3:30 PM EST Office Visit [facility] 800 [facility], [address]nd [place] [address] Germaine Alejandro MD [address] [place] [phone] documented as of this encounter Visit Diagnoses Not on filedocumented in this encounter Additional Health Concerns Assessment Noted Time A fall risk assessment has been complete d for the patient 10/29/2022 11:04 AM EST documented as of this encounter Care Teams Systems Software Specialist Relationship Specialty Start Date End Date Manjit Gorman MD [address] [place], [place] [phone] PCP - General 09/23/22 Olegario Juarez MD [address] [place] [phone] Consulting Physician Radiation Oncology 10/29/2207/05 documented as of this encounter
--- OUTSIDE RECORDS SUMMARY | 2024-07-27 06:57 | XMS_ITS | Encounter Summary ---
Author Organization [facility] Address [address] [place] [address] Care Team Providers Care Certified Nurse Operating Room Name Role Phone Manjit Gorman MD Primary Care Provider [phone] Olegario Juarez MD Unavailable [phone] Encounter Details Date Type Department Care Team (Latest Contact Info) Description 10/30/2022 Travel Social History Tobacco Use Types Packs/Day [...] [facility] Res[facility] 800 [facility], 2nd [place] [address] 10/17/2024 9:00 AM EST Appointment [facility] PET Scan 800 [place] [address] 10/17/2024 10:00 AM EST Appointment [facility] PET Scan 800 [place] [phone] 10/17/2024 11:00 AM EST Office Visit [facility] Res[facility] 800 [facility], 2nd [place] [phone] Juan Pablo Cee MD [address] [facility] [address] [place] [address] 10/17/2024 1:00 PM EST Clinical Support [facility] Res[facility] 800 [facility], 2nd [place] [address] 10/17/2024 2:20 PM EST Appointment [facility] [address] [place] [address] 10/20/2024 3:30 PM EST Office Visit [facility] 800 [facility], [address] [place] [address] Germaine Alejandro MD [address] [place] [address] documented as of this encounter Visit Diagnoses Not on filedocumented in this encounter Additional Health Concerns Assessment Noted Time A fall risk assessment has been complete d for the patient 10/29/2022 11:04 AM EST documented as of this encounter Care Teams Certified Nurse Operating Room Relationship Specialty Start Date End Date Manjit Gorman MD [address] [place], [place] [phone] PCP - General 09/23/22 Olegario Juarez MD [address] [place] [address] Consulting Physician Radiation Oncology 10/29/2207/05 documented as of this encounter
--- OUTSIDE RECORDS SUMMARY | 2024-07-27 06:57 | XMS_ITS | Encounter Summary ---
Author Organization [facility] Address [address] [place] [address] Care Team Providers Care Cross Country And Track And Field Coach Name Role Phone Manjit Gorman MD Primary Care Provider [phone] Encounter Details Date Type Department Care Team (Latest Contact Info) Description 10/21/2022 Travel Social History Tobacco Use Types Packs/Day [...] [facility] 800 [facility], 2nd [place] [address] 10/17/2024 9:00 AM EST Appointment [facility] PET Scan 800 [place] [address] 10/17/2024 10:00 AM EST Appointment [facility] PET Scan 800 [place] [address] 10/17/2024 11:00 AM EST Office Visit [facility] Res[facility] 800 [facility], 2nd [place] [phone] Juan Pablo Cee MD [address] [facility] [address] [place] [phone] 10/17/2024 1:00 PM EST Clinical Support [facility] 800 [facility], 2nd [place] [address] 10/17/2024 2:20 PM EST Appointment [facility] [address] [place] [address] 10/20/2024 3:30 PM EST Office Visit [facility] [address] [phone] Germaine Alejandro MD 800 [facility] [address] [place] [phone] documented as of this encounter Visit Diagnoses Not on filedocumented in this encounter Additional Health Concerns Assessment Noted Time A fall risk assessment has been complete d for the patient 10/21/2022 1:08 PM EST documented as of this encounter Care Teams Cross Country And Track And Field Coach Relationship Specialty Start Date End Date Manjit Gorman MD [address] [place] [address] PCP - General 09/23/22 documented as of this encounter
--- OUTSIDE RECORDS SUMMARY | 2024-07-27 06:57 | XMS_ITS | Encounter Summary ---
Author Organization [facility] Address [address] [id number] Care Team Providers Care Metal Roaster Name Role Phone Manjit Gorman MD Primary Care Provider [phone] Olegario Juarez MD Unavailable [phone] Encounter Details Date Type Department Care Team (Latest Contact Info) Description 11/13/2022 1:23 PM EST - 11/13/2022 11:59 PM EST Hospital Encounter [facility] [id number] [place] [address] Discharge Disposition: Still a Patient Social History [...] CC Head[facility] Neck [facility] Respiratory [address] [address] 10/17/2024 9:00 AM EST Appointment [facility] PET Scan 800 [place] [address] 10/17/2024 10:00 AM EST Appointment [facility] PET Scan 800 [place] [address] 10/17/2024 11:00 AM EST Office Visit [facility] [address] [facility] [address]nd [place] [address] Juan Pablo Cee MD [address] [facility] [address] [place] [address] 10/17/2024 1:00 PM EST Clinical Support [facility] Respiratory 800 [facility], 2nd [place] [address] 10/17/2024 2:20 PM EST Appointment [facility] Radiology [address] [place] [phone] 10/20/2024 3:30 PM EST Office Visit [facility] Res[facility] 800 [facility], [address]nd [place] [phone] Germaine Alejandro MD 800 [facility] [address] [facility] [address] [place] [address] documented as of this encounter Visit Diagnoses Not on filedocumented in this encounter Additional Health Concerns Assessment Noted Time A fall risk assessment has been complete d for the patient 11/11/2022 11:49 AM EST documented as of this encounter Care Teams Metal Roaster Relationship Specialty Start Date End Date Manjit Gorman MD [address] [phone] PCP - General 09/23/22 Olegario Juarez MD 800 [facility] [address] [place] [address] Consulting Physician Radiation Oncology 10/29/2207/05 documented as of this encounter
--- OUTSIDE RECORDS SUMMARY | 2024-07-27 06:58 | XMS_ITS | Encounter Summary ---
Author Organization [facility] Address [address] [place] [address] Care Team Providers Care [employer]el [employer] Name Role Phone Manjit Gorman MD Primary Care Provider [phone] Reason for Visit * Auth/Cert (Routine) Specialty Diagnoses / Procedures Referred By Contac t Referred To Contact Diagnoses neck mass Procedures NE LARYNGOSCOPY,DIRCT,OP SCOPE,BIOPSY LARYNGOSCOPY, DIRECT, WITH BIOPSY Juan Pablo Cee MD [address] [address] Phone: tel: fax: [facility] [address] [place] [phone] Phone: tel: Referral ID Status Reason Start Date Expiration Date Visits Re quested Visits Authorized [id number] 1 1 Encounter Details Date Type Department Care Team (Late st Contact Info) Description 10/09/2022 3:30 PM EST Anesthesia Event [facility] [address] [place] [phone] Anastacio Scott MD [address] [place] [phone] Melany Taylor MD [address] [place] [address] Anesthesia Record Procedure Summary Procedure Name Responsible Anesthesiologist Anesthesia Start Time Anesthesia Stop Time LARYNGOSCOPY, DIRECT, WITH BIOPSY (Throat) Anastacio Scott MD 10/09/22 1530 10/09/22 1627 Events Date Time Event Comment 10/09/2022 1423 1530 An Start 1530 An Start Data 1530 In Room 1539 An Induction The patient was reevaluated immediately before moderate or deep sedation use and before anesthesia induction. 1542 An Intubation 1549 Proc Start 1605 Proc Fin 1616 An Extubation 1619 an stop data 1620 Out of Room 1625 Handoff to Receiving I compl eted my handoff to the receiving clinician during which we: 1. Identified the patient 2. Identified the responsible provider 3. Reviewed the pertinent medical history 4. Discussed the surgical course 5. Reviewed intra-op anesthesia management and issues during anesthesia 6. Set expectations for post-procedure period 7. Allowed opportunity for questions and acknowledgement of understanding. 1627 An Stop Meds Name Total fentaNYL (Sublimaze) injection 50 mcg/mL 100 mcg lidocaine PF (Xylocaine-MPF) 2% 100 mg rocuronium (ZeMuron) injection 10 mg/mL 25 mg succinylcholine (Anectine) injection 20 mg/mL 160 mg dexamethasone (Decadron) injection 4 mg/ mL 8 mg ondansetron (Zofran) injection 2 mg/mL 4 mg sugammadex (Bridion) injection 100 mg/mL 400 mg lactated Ringer's infusion 800 mL * Agents Name O2 N2O Air Sevoflurane Isoflurane Desflurane Inspired Desflurane Inspired Isoflurane Inspired Sevoflurane N2O Inspired N2O * Blood No blood administrations on file. Lines, Drains, and Airways Type Details Placement Removal Peripheral IV Placement Date: 10/30; Placement Time: 142; Catheter Size: 20 G; Orientation: Posterior, Right; Location: Hand; Site Prep: Chlorhexidine ; Local Anesth: Injectable; Technique: Anatomical landmarks; Patient Tolerance: Tolerated well; Removal Date: 10/09/22; Removal Time: 171; Removal Reason: Discharge 10/09/22 142 by Denisha Allison RN 10/09/221717 by Luciano Lugo ETT Placement Date: 10/30; Placement Time: 154 (created via procedure documentation); Mask Ventilation: 1; Technique: Direct laryngoscopy; Type: ETT - single; Single Lumen Tube Size: 6 mm; Cuffed: Yes; Laryngoscope: Earnest; Blade Size: 4; Location: Oral; Grade View: Grade IIa; Insertion Attempts: 1; Placement Verification: Auscultation, Capnometry; Airway Comments: Atraumatic. No change to dentition. ; Placed by: ASHWINI; Removal Date: 10/09/22; Removal Time: 16110/09/22 1542 by Precious Escobedo CRNA, DNP 10/09/22 1616 by Precious Escobedo CRNA, DNP documented in this encounter Social History Tobacco Use Types Packs/Day [...] suspected to have Coronavirus/COVID-19? No / Unsure 10/09/2022 1:58 PM EST documented as of this encounter Miscellaneous Notes * Anesthesia Postprocedure Evaluation - Precious Escobedo CRNA - 10/09/2022 4:25 PM EST Patient: Erick Sierra Anesthesia Type: general Vitals Value Taken Time BP 146/81 10/09/22 1622 Temp 36.5 10/09/22 1625 Pulse 80 10/09/22 1624 Resp 13 10/09/22 1624 SpO2 100 10/09/22 1625 Vitals shown include unvalidated device data. Anesthesia Post Evaluation Patient location during evaluation: PACU Patient participation: complete - patient participated Level of consciousness: awake Pain management: adequate (pain score 0-3) Airway patency: natural airway Cardiovascular status: acceptable Respiratory status: acceptable (face tent w/ O2 @ 6lpm) Hydration status: acceptable No notable events documented. * Anesthesia Procedure Notes - Precious Escobedo CRNA - 10/09/2022 3:57 PM ESTAssociated Order(s): Airway Airway Date/Time: 10/09/2022 3:42 PM Urgency: elective Airway not difficult General Information and Staff Patient location during procedure: OR Anesthesiologist: Anastacio Scott MD [employer] PROGRAM TEACHER: Precious Escobedo CRNA Performed: ASHWINI Indications and Patient Condition Indications for airway management: anesthesia Spontaneous Ventilation: absent Preoxygenated: yes Patient position: sniffing Mask difficulty assessment: 1 - vent by mask Final Airway Details Final airway type: endotracheal airway Successful airway: ETT Cuffed: yes Successful intubation technique: direct laryngoscopy Endotracheal tube insertion site: oral Blade: Earnest Blade size: #4 ETT size (mm): 6.0 Cormack-Lehane Classification: grade IIa - partial view of glottis Placement verified by: chest auscultation and capnometry Cuff volume (mL): 7 Measured from: teeth ETT to teeth (cm): 22 Number of attempts at approach: 1 Ventilation between attempts: none Number of other approaches attempted: 0 Additional Comments Atraumatic. No change to dentition. * Anesthesia Preprocedure Evaluation - Ray Taylor MD - 10/09/2022 2:13 PM EST Patient: Erick Sierra Procedure Information Date/Time: 10/09/22 1555 Procedure: LARYNGOSCOPY, DIRECT, WITH BIOPSY Location: [address] [place] [address] OR Surgeons: Juan Pablo Cee MD Relevant Problems Cardio (+) Hypertension /Renal (+) Benign prostatic hyperplasia Pulmonary (+) Allergic rhinitis due to pollen Past Medical History: Diagnosis Date ??? Hypertension ??? Melanoma (CMS/HCC) ??? Prostate cancer (CMS/HCC) had cyberknife therapy The risks, options, and benefits of general anesthesia were discussed with the patient. All questions addressed. Rationale reviewed. Patient understands options (including no intervention), prefers general anesthesia. Anesthesia Evaluation Clinical information reviewed: Med Hx Tobacco Allergies Surg Hx Fam Hx Soc Hx NPO Status Date of Last Liquid: 10/09/22 Time of Last Liquid: 1130 Date of Last Solid: 10/08/22 Time of Last Solid: 2200 Last Intake Type: Clear fluids Time of Last Void: 1309 Physical Exam Airway Mallampati: III Mouth opening: limited TM distance: >3 FB Neck ROM: full Cardiovascular - normal exam Dental Pulmonary - normal exam Neurological Skin Musculoskeletal Extremities Anesthesia Plan ASA 3 Anesthesia technique(s) discussed with the patient/family: General Anesthesia plan agreed upon was: general Anesthetic plan and risks discussed with patient and spouse. Plan discussed with resident. Additional Equipment Requests documented in this encounter Plan of Treatment Upcoming Encounters Date Type Department Care Team ([facility] st Contact Info) Description 10/17/2024 8:00 AM EST Clinical Support [facility] [address] [phone] 10/17/2024 9:00 AM EST Appointment [facility] PET Scan [address] [place] [phone] 10/17/2024 10:00 AM EST Appointment [facility] PET Scan [address] [place] [address] 10/17/2024 11:00 AM EST Office Visit [facility] [address] [phone] Juan Pablo Cee MD [address] [facility] [address] [place] [address] 10/17/2024 1:00 PM EST Clinical Support [facility] [address] [phone] 10/17/2024 2:20 PM EST Appointment [facility] [address] [place] [phone] 10/20/2024 3:30 PM EST Office Visit [facility] [address] [phone] Germaine Alejandro MD [address] [facility] [address] [place] [phone] documented as of this encounter Procedures Procedure Name Priority Date/Time Associated Diagnosis Comments PB ANESTHESIA PLACEHOLDER Routine 10/09/2022 3:42 PM EST NE AN ELECTIVE ENDOTRACHEAL AIRWAY Routine 10/09/2022 3:42 PM EST documented in this encounter Results * NE AN ELECTIVE ENDOTRACHEAL AIRWAY, PB ANESTHESIA PLACEHOLDER (10/09/2022 3:42 PM EST) Narrative Precious Escobedo CRNA - 10/09/2022 3:42 PM EST Precious Escobedo CRNA ? 10/09/2022 ??3:59 PM Airway Date/Time: 10/09/2022 3:42 PM Urgency: elective Airway not difficult General Information and Staff Patient location during procedure: OR Anesthesiologist: Anastacio Scott MD [employer] PROGRAM TEACHER: Precious Escobedo CRNA Performed: AFTER [employer] PROGRAM TEACHER Indications and Patient Condition Indications for airway management: anesthesia Spontaneous Ventilation: absent Preoxygenated: yes Patient position: sniffing Mask difficulty assessment: 1 - vent by mask Final Airway Details Final airway type: endotracheal airway Successful airway: ETT Cuffed: yes Successful intubation technique: direct laryngoscopy Endotracheal tube insertion site: oral Blade: Earnest Blade size: #4 ETT size (mm): 6.0 Cormack-Lehane Classification: grade IIa - partial view of glottis Placement verified by: chest auscultation and capnometry Cuff volume (mL): 7 Measured from: teeth ETT to teeth (cm): 22 Number of attempts at approach: 1 Ventilation between attempts: none Number of other approaches attempted: 0 Additional Comments Atraumatic. No change to dentition. us Anastacio Scott MD ANESTHESIA ORDERABLES Fin al Result documented in this encounter Visit Diagnoses Not on filedocumented in this encounter Administered Medications Inactive Administered Medications - up to 3 most recent administrations Medication Order MAR Action Action Date Dose Rate Site dexamethasone (Decadron) injection Intravenous, As needed, Starting on Ev 10/09/22 at 1545, Until Ev 10/09/22 at 1627, Routine, Anesthesia Intraprocedure Given 10/09/2022 3:45 PM EST 8 mg fentaNYL (Sublimaze) injection Intravenous, As needed, Starting on Ev 10/09/22 at 1539, Until Ev 10/09/22 at 1627, Routine, Anesthesia Intraprocedure Given 10/09/2022 3:39 PM EST 100 mcg lactated Ringer's infusion Intravenous, Continuous PRN, Starting on Ev 10/09/22 at 1530, Until Ev 10/09/22 at 1627, Routine New Bag 10/09/2022 3:30 PM EST lidocaine PF (Xylocaine) 2 % injection Intravenous, As needed, Starting on Ev 10/09/22 at 1539, Until Ev 10/09/22 at 1627, Routine, Anesthesia Intraprocedure Given 10/09/2022 3:39 PM EST 100 mg ondansetron (Zofran) injection Intravenous, As needed, Starting on Ev 10/09/22 at 1545, Until Ev 10/09/22 at 1627, Routine, Anesthesia Intraprocedure Given 10/09/2022 3:45 PM EST 4 mg rocuronium (ZeMuron) injection Intravenous, As needed, Starting on Ev 10/09/22 at 1540, Until Ev 10/09/22 at 1627, Routine, Anesthesia Intraprocedure Given 10/09/2022 3:44 PM EST 20 mg Given 10/09/2022 3:40 PM EST 5 mg succinylcholine (Anectine) injection Intravenous, As needed, Starting on Ev 10/09/22 at 1540, Until Ev 10/09/22 at 1627, Routine, Anesthesia Intraprocedure Given 10/09/2022 3:40 PM EST 160 mg sugammadex (Bridion) 200 MG/2ML injection Intravenous, As needed, Starting on Ev 10/09/22 at 1605, Until Ev 10/09/22 at 1627, Routine, Anesthesia Intraprocedure Given 10/09/2022 4:05 PM EST 400 mg documented in this encounter Additional Health Concerns Assessment Noted Time A fall risk assessment has been complete d for the patient 09/23/2022 2:18 PM EST documented as of this encounter Care Teams He[employer] Relationship Specialty Start Date End Date Manjit Gorman MD [address] [place] [address] PCP - General 09/23/22 documented as of this encounter
--- OUTSIDE RECORDS SUMMARY | 2024-07-27 06:58 | XMS_ITS | Encounter Summary ---
Author Organization [facility] Address [address] [id number] Care Team Providers Care Behavior Specialist Name Role Phone Manjit Gorman MD Primary Care Provider [phone] Reason for Visit * Auth/Cert (Routine) Specialty Diagnoses / Procedures Referred By Contac t Referred To Contact Diagnoses neck mass Procedures MD LARYNGOSCOPY,DIRCT,OP SCOPE,BIOPSY LARYNGOSCOPY, DIRECT, WITH BIOPSY Juan Pablo Cee MD [id number] [place] [address] Phone: tel: fax: [facility] [address] [place] [phone] Phone: tel: Referral ID Status Reason Start Date Expiration Date Visits Re quested Visits Authorized [id number] 1 1 Encounter Details Date Type Department Care Team (Late st Contact Info) Description 10/09/2022 1:46 PM EST - 10/09/2022 5:30 PM [facility] Hospital Encounter [facility] [address] [place] [phone] Juan Pablo Cee MD [id number] [place] [address] Neck mass Discharge Disposition: Home or Self Care Social [...] PM EST documented as of this encounter Last Filed Vital Signs Vital Sign Reading Time Taken Comments Blood Pressure 164/99 10/09/2022 5:00 PM EST Pulse 84 10/09/2022 5:00 PM EST Temperature 36.7 ??C (98.1 ??F) 10/09/2022 5:00 PM ES T Respiratory Rate 26 10/09/2022 5:00 PM EST Oxygen Saturation 100% 10/09/2022 5:00 PM EST Inhaled Oxygen Concentration - - Weight 83 kg (183 lb) 10/02/2022 10:53 AM EST Height - - Body Mass Index 23.5 09/23/2022 2:28 PM EST documented in this encounter Medications at Time of Discharge amLODIPine-benaz epril (Lotrel) 2.5-10 MG capsule Take 1 capsule by mouth every night. BLACK ELDERBERRY PO Take 1 tablet by mouth every night. multivitamin (Theragran-M) tablet Take 1 tablet by mouth every night. tadalafil (Cialis) 5 MG tablet TAKE 1 OR 2 TABLETS BY MOUTH DAILY NEEDED FOR ED 04/15/2022 HYDROcodone-acet aminophen (Velma) 5-325 MG tablet Take 1 tablet (5 mg of hydrocodone total) by mouth every 6 (six) hours if needed for severe pain for up to 4 days. 10 tablet 10/09/2022 3 terbinafine (LamISIL) 250 MG tablet TAKE 1 TABLET BY MOUTH FOR THE FIRST 10 DAYS OF EACH MONTH FOR 6 MONTHS 09/09/2022 3 documented as of this encounter Miscellaneous Notes * Anesthesia PACU Signout - Kelvin Henderson MD - 10/09/2022 4:53 PM EST Patient: Erick Sierra Anesthesia Type: general Vitals Value Taken Time BP 144/126 10/09/22 1650 Temp 36.4 ??C (97.6 ??F) 10/09/22 1625 Pulse 76 10/09/22 1652 Resp 15 10/09/22 1652 SpO2 98 % 10/09/22 1652 Vitals shown include unvalidated device data. Anesthesia PACU Signout Patient location during evaluation: PACU Level of consciousness: awake and responsive to physical stimuli Pain management: adequate (pain score 0-3) Airway patency: natural airway Hydration status: acceptable PONV: none Cardiovascular status: acceptable and hemodynamically stable Respiratory status: acceptable, nonlabored ventilation, spontaneous ventilation and room air Cosigned by Mauricio Lawler MD at 10/09/2022 5:08 PM EST Associated attestation - Mauricio Lawler MD - 10/09/2022 5:08 PM EST I agree * Op Note - Juan Pablo Cee MD - 10/09/2022 3:49 PM EST PATIENT: Erick Sierra DATE OF : 1950 DATE OF SURGERY: 10/09/22 PREOPERATIVE DIAGNOSES: Right base of tongue/ oropharyngeal mass POSTOPERATIVE DIAGNOSES: Same PROCEDURE PERFORMED: Direct Laryngoscopy with telescope Biopsy ATTENDING SURGEON: Dr. Cee RESIDENT SURGEON: Jason Mitchell MD ANESTHESIA: General. DRAINS, STENTS, IMPLANTS: None. SPECIMEN: Three separate pieces of firm indurated right base of tongue/oropharyngeal lesion sent for permanent pathology ESTIMATED BLOOD LOSS: <10 ml. COMPLICATIONS: None FINDINGS: The lips, tongue, buccal mucosa, floor of mouth, palate were thoroughly examined with no evidence of mass or lesion. Next bilateral base of tongue was examined using AC laryngoscope no massor lesion of left BOT or oropharynx, firm indurated mass appreciated to the right BOT, three tissue samples obtained and sent for permanent pathology. OPERATIVE DESCRIPTION: The patient was brought to the operating room and placed on the operating table in supine position. General endotracheal anesthesia was induced. Once the patient was anesthetized a timeout was called to identify the patient and procedure. The patient was turned 90 degrees away from anesthesia and a small shoulder roll was placed to gently extend the neck. A formal head and neck exam under anesthesia was systematically performed with no evidence of mass or lesion aside from the aforementioned right base of tongue lesion. An anterior commissure laryngoscope was used to first perform direct laryngoscopy. Once view of the indurated right base of tongue lesion was obtained, straight cupped forceps were then used to sample the tissue. The AC scope was partially removed and two additional tissue samples were obtained under direct visualization. The three tissue samples were sent for permanent pathology. Afrin soaked pledgets were then applied to areaof biopsy to assist with hemostasis. The patients oropharynx and oral cavity were thoroughly suction ed. An orogastric tube was placed to suction any swallowed blood/seceretions and this concluded ourportion of the case. The patient was then turned back over to anesthesia, awakened, and taken to PACU without complication. The 0-degree rigid Grady telescope was used during this case to help with visualization and guidethe surgical biopsies. Dr. Cee was present for the entirety of the case. I was present for the entire procedure. Juan Pablo Cee MD MS FACS [employer] Head & Neck Oncology Rhinology & Skull Base Surgery * H&P - Jason Mitchell MD - 10/09/2022 6:55 AM EST Chief Concern & History Of Present Illness Erick Sierra is a 72 y.o. 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 Past Medical History He has a past medical history of Hypertension, Melanoma (CMS/HCC), and Prostate cancer (CMS/HCC). Surgical History He has a past surgical history that includes Skin cancer excision; Vasectomy; Tonsillectomy; Colonoscopy; and Neck lesion biopsy (08/2022). Family History Family History Problem Relation Name Age of Onset Heart disease Other Hypertension Other Malig Hyperthermia Neg Hx Social History He reports that he has never smoked. He has never used smokeless tobacco. He reports current alcohol use. He reports that he does not use drugs. Review of Systems Constitutional: Negative. HENT: Negative. Eyes: Negative. Respiratory: Negative. Cardiovascular: Negative. Gastrointestinal: Negative. Endocrine: Negative. Genitourinary: Negative. Musculoskeletal: Negative. Skin: Negative. Allergic/Immunologic: Negative. Neurological: Negative. Hematological: Negative. Psychiatric/Behavioral: Negative. Physical Exam Constitutional: Appearance: Normal appearance. HENT: Head: Normocephalic and atraumatic. Right Ear: External ear normal. Left Ear: External ear normal. Nose: Nose normal. Mouth/Throat: Mouth: Mucous membranes are moist. Pharynx: Oropharynx is clear. Eyes: Extraocular Movements: Extraocular movements intact. Cardiovascular: Rate and Rhythm: Normal rate and regular rhythm. Pulmonary: Effort: Pulmonary effort is normal. Breath sounds: Normal breath sounds. Abdominal: General: Abdomen is flat. Palpations: Abdomen is soft. Musculoskeletal: General: Normal range of motion. Cervical back: Normal range of motion and neck supple. Skin: General: Skin is warm and dry. Neurological: General: No focal deficit present. Mental Status: He is alert and oriented to person, place, and time. Psychiatric: Mood and Affect: Mood normal. Behavior: Behavior normal. Last Recorded Vitals Weight 83 kg (183 lb). Assessment/Plan Mr. Sierra is a pleasant 72 Yo M with a history of p16+ SCCa metastatic to neck with unknown primarywho presents today for surgery. -Plan to OR for direct laryngoscopy and biopsy -Consent to be obtained prior to procedure Cosigned by Juan Pablo Cee MD at 10/10/2022 7:18 AM EST Associated attestation - Juan Pablo Cee MD - 10/10/2022 7:18 AM EST I saw and evaluated the patient with the resident/fellow. I discussed the case with the resident/fellow and agree with the findings and plan as documented. documented in this encounter Plan of Treatment Upcoming Encounters Date Type Department Care Team ([facility] st Contact Info) Description 10/17/2024 8:00 AM EST Clinical Support [facility] [address] [phone] 10/17/2024 9:00 AM EST Appointment [facility] PET Scan [address] [place] [address] 10/17/2024 10:00 AM EST Appointment [facility] PET Scan [address] [place] [address] 10/17/2024 11:00 AM EST Office Visit [facility] [address] [address] Juan Pablo Cee MD [address] [facility] [address] [place] [address] 10/17/2024 1:00 PM EST Clinical Support [facility] [address] [address] 10/17/2024 2:20 PM EST Appointment [facility] [address] [place] [address] 10/20/2024 3:30 PM EST Office Visit [facility] [address] [address] Germaine Alejandro MD 800 [facility] [address] [place] [address] documented as of this encounter Procedures Procedure Name Priority Date/Time Associated Diagnosis Comments SURGICAL PATHOLOGY EXAM Routine 10/09/2022 3:59 PM EST Neck mass MD LARYNGOSCOPY,DIRCT, OP SCOPE,BIOPSY 10/09/2022 3:20 PM EST neck mass documented in this encounter Results * Surgical Pathology Exam (10/09/2022 3:59 PM EST) Case Report Surgical Pathology ?Case: [id number] ? Authorizing Provider: ??Juan Pablo Cee MD ? Collected: ? 10/09/2022 1559 ? Ordering Location: ? [facility] ? Received: ?10/09/2022 1655 ? Pathologist: ? Jennifer Sanz MD ? Specimen: ?Other (specify site), right base of tongue ? 3 10:26 AM EST [facility] Final Diagnosis A. 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 3 10:26 AM EST [facility] Clinical Information neck mass 3 10:26 AM EST [facility] Special and Immunohistochemical Stains IHC: A1-2 P16 - positive All controls show appropriate reactivity. All immunohistochemi stry, in situ hybridization, and histochemical tests were developed by and are performed at the [facility], [address] [place] [address]. All tests reported here, except those addressing [...] likelihood of false negativity on decalcified specimens. 3 10:26 AM EST [facility] Gross Description A. RIGHT BASE OF TONGUE Specimen is received in formalin labeled right base of tongue. Received are four nodules of soft, fleshy pink red tissue ranging from 0.4 up to 0.7 cm in greatest dimension. The specimen is entirely submitted in one cassette labeled A1. Saskia Mejia 3 10:26 AM [facility] Note: A resident was involved in the service. I attest I examined the relevant preparations for the specimens and confirmed the diagnosis or interpretation. 3 10:26 AM [facility] Tissue Topography unknown / Unknown 10/09/2022 3:59 PM EST 10/09/2022 4:55 PM EST Comment:Pre-op diagnosis: neck mass us Juan Pablo Cee MD LAB PATHOLOGY ORDERABLES Final R esult [facility] [address] [place] [address] documented in this encounter Visit Diagnoses Diagnosis Neck mass Swelling, mass, or lump in head and neck documented in this encounter Administered Medications Inactive Administered Medications - up to 3 most recent administrations Medication Order MAR Action Action Date Dose Rate Site acetaminophen (Tylenol) tablet 1,000 mg 1,000 mg, Oral, Once as needed, 1 dose, Starting on Ev 10/09/22 at 1600, Until Ev 10/09/22 at 1941, Routine, Recovery (Phase I only), pain score of >1 out of 10 fentaNYL (Sublimaze) injection 25 mcg 25 mcg, Intravenous, Every 5 min PRN, 2 doses, Starting on Ev 10/09/22 at 1600, Until Ev 10/09/22 at 1941, Routine, Recovery (Phase I only), pain score of 3-4 out of 10 HYDROmorphone (Dilaudid) injection 0.5 mg 0.5 mg, Intravenous, Every 10 min PRN, 2 doses, Starting on Ev 10/09/22 at 1600, Until Ev 10/09/22 at 1941, Routine, Recovery (Phase I only), pain score of 9-10 out of 10 lactated Ringer's infusion 20 mL/hr, Intravenous, Continuous, Starting on Ev 10/09/22 at 1415, Until Ev 10/09/22 at 194, Routine lidocaine (Xylocaine) 1 % injection 0.5 mL 0.5 mL, Injection, Once as needed, 1 dose, Starting on Ev 10/09/22 at 1412, Until Ev 10/09/22 at 1416, Routine, Holding - Preprocedure, If needed to start an IV. Given 10/09/2022 2:16 PM EST 0.5 mL naloxone (Narcan) injection 0.4 mg 0.4 mg, Intravenous, As needed, Starting on Ev 10/09/22 at 1600, Until Ev 10/09/22 at 194, Routine, Recovery (Phase I only), respiratory depression ondansetron (Zofran) injection 4 mg 4 mg, Intravenous, Once as needed, 1 dose, Starting on Ev 10/09/22 at 1600, Until Ve 10/09/22 at 194, Routine, Recovery (Phase I only), nausea, vomiting oxyCODONE (Roxicodone) immediate release tablet 10 mg 10 mg, Oral, Once as needed, 1 dose, Starting on Ev 10/09/22 at 1600, Until Ev 10/09/22 at 1941, Routine, Recovery (Phase I only), pain score of 6-8 out of 10 oxyCODONE (Roxicodone) immediate release tablet 5 mg 5 mg, Oral, Once as needed, 1 dose, Starting on Ev 10/09/22 at 1600, Until Ev 10/09/22 at 194, Routine, Recovery (Phase I only), pain score of 3-5 out of 10 sodium chloride 0.9 % flush 10 mL 10 mL, Intravenous, Every 12 hours, First dose on Ev 10/09/22 at 1430, Until Discontinued, Routine, Holding - Preprocedure sodium chloride 0.9 % flush 10 mL 10 mL, Intravenous, As needed, Starting on Ev 10/09/22 at 1412, Until Ev 10/09/22 at 1941, Routine, Holding - Preprocedure, line care documented in this encounter Active and Recently Administered Medications Times are shown in EST. Scheduled Medication Order 10/07/2022 10/08/2022 10/09/2022 ipratropium-albuterol (Duo-Neb) 0.5-2.5 mg/3 mL nebulizer solution 3 mL 3 mL, Nebulization, Once, 1 dose, On Ev 10/09/22 at 1630, Routine, Recovery (Phase I only) 1630 (Canceled Entry - Provider: Automatic Discharge Provider - Comment: Automatically canceled at discontinue of medication order) lactated Ringer's infusion 20 mL/hr, Intravenous, Once, 1 dose, On Ev 10/09/22 at 1630, Routine 1630 (Canceled Entry - Provider: Automatic Discharge Provider - Comment: Automatically canceled at discontinue of medication order) sodium chloride 0.9 % flush 10 mL(Linked Group 1) 10 mL, Intravenous, Every 12 hours, First dose on Ev 10/09/22 at 1430, Until Discontinued, Routine, Holding - Preprocedure 1430 (Canceled Entry - Provider: Automatic Discharge Provider - Comment: Automatically canceled at discontinue of medication order) Continuous Medication Order 10/07/2022 10/08/2022 10/09/2022 lactated Ringer's infusion 20 mL/hr, Intravenous, Continuous, Starting on Ev 10/09/22 at 1415, Until Ev 10/09/22 at 1941, Routine 1415 (Canceled Entry - Provider: Automatic Discharge Provider - Comment: Automatically canceled at discontinue of medication order) PRN Medication Order 10/07/2022 10/08/2022 10/09/2022 acetaminophen (Tylenol) tablet 1,000 mg 1,000 mg, Oral, Once as needed, 1 dose, Starting on Ev 10/09/22 at 1600, Until Ev 10/09/22 at 1941, Routine, Recovery (Phase I only), pain score of >1 out of 10 fentaNYL (Sublimaze) injection 25 mcg 25 mcg, Intravenous, Every 5 min PRN, 2 doses, Starting on Ev 10/09/22 at 1600, Until Ve 10/09/22 at 194, Routine, Recovery (Phase I only), pain score of 3-4 out of 10 HYDROmorphone (Dilaudid) injection 0.5 mg 0.5 mg, Intravenous, Every 10 min PRN, 2 doses, Starting on Ev 10/09/22 at 1600, Until Ev 10/09/22 at 194, Routine, Recovery (Phase I only), pain score of 9-10 out of 10 lidocaine (Xylocaine) 1 % injection 0.5 mL (COMPLETED) 0.5 mL, Injection, Once as needed, 1 dose, Starting on Ev 10/09/22 at 1412, Until Ev 10/09/22 at 1416, Routine, Holding - Preprocedure, If needed to start an IV. 1416 (Given - Provid er: Denisha Allison RN) naloxone (Narcan) injection 0.4 mg 0.4 mg, Intravenous, As needed, Starting on Ev 10/09/22 at 1600, Until Ev 10/09/22 at 194, Routine, Recovery (Phase I only), respiratory depression ondansetron (Zofran) injection 4 mg 4 mg, Intravenous, Once as needed, 1 dose, Starting on Ev 10/09/22 at 1600, Until Ev 10/09/22 at 194, Routine, Recovery (Phase I only), nausea, vomiting oxyCODONE (Roxicodone) immediate release tablet 10 mg(Linked Group 2) 10 mg, Oral, Once as needed, 1 dose, Starting on Ev 10/09/22 at 1600, Until Ev 10/09/22 at 194, Routine, Recovery (Phase I only), pain score of 6-8 out of 10 oxyCODONE (Roxicodone) immediate release tablet 5 mg(Linked Group 2) 5 mg, Oral, Once as needed, 1 dose, Starting on Ev 10/09/22 at 1600, Until Ev 10/09/22 at 194, Routine, Recovery (Phase I only), pain score of 3-5 out of 10 oxymetazoline (Afrin) 0.05 % nasal spray (CANCELED) As needed, Starting on Ev 10/09/22 at 1553, Until Ev 10/09/22 at 1620, Routine, Intraprocedure 1553 (Given - Provid er: Juan Pablo Cee MD) sodium chloride 0.9 % flush 10 mL(Linked Group 1) 10 mL, Intravenous, As needed, Starting on Ev 10/09/22 at 1412, Until Ev 10/09/22 at 1941, Routine, Holding - Preprocedure, line care Linked Groups Order Group 1: Insert peripheral IV (CANCELED) Once, On Ev 10/09/22 at 1413, For 1 occurrence, Holding - Preprocedure And Saline lock IV (CANCELED) Once, On Ev 10/09/22 at 1413, For 1 occurrence, Holding - Preprocedure And sodium chloride 0.9 % flush 10 mLJump to med 10 mL, Intravenous, Every 12 hours, First dose on Ev 10/09/22 at 1430, Until Discontinued, Routine, Holding - Preprocedure And sodium chloride 0.9 % flush 10 mLJump to med 10 mL, Intravenous, As needed, Starting on Ev 10/09/22 at 1412, Until Ev 10/09/22 at 1941, Routine, Holding - Preprocedure, line care Group 2: oxyCODONE (Roxicodone) immediate release tablet 5 mgJump to med 5 mg, Oral, Once as needed, 1 dose, Starting on Ev 10/09/22 at 1600, Until Ev 10/09/22 at 1941, Routine, Recovery (Phase I only), pain score of 3-5 out of 10 Or oxyCODONE (Roxicodone) immediate release tablet 10 mgJump to med 10 mg, Oral, Once as needed, 1 dose, Starting on Ev 10/09/22 at 1600, Until Ev 10/09/22 at 1941, Routine, Recovery (Phase I only), pain score of 6-8 out of 10 documented in this encounter Additional Health Concerns Assessment Noted Time A fall risk assessment has been complete d for the patient 09/23/2022 2:18 PM EST documented as of this encounter Care Teams Behavior Specialist Relationship Specialty Start Date End Date Manjit Gorman MD [address] [phone] PCP - General 09/23/22 documented as of this encounter
--- OUTSIDE RECORDS SUMMARY | 2024-07-27 06:58 | XMS_ITS | Encounter Summary ---
Author Organization [facility] Address [address] [place] [address] Care Team Providers Care Quantitative Associate Name Role Phone Manjit Gorman MD Primary Care Provider [phone] Encounter Details Date Type Department Care Team (Latest Contact Info) Description 10/09/2022 Travel Social History Tobacco Use Types Packs/Day [...] PM EST documented as of this encounter Plan of Treatment Upcoming Encounters Date Type Department Care Team (Late st Contact Info) Description 10/17/2024 8:00 AM EST Clinical Support [facility] [address] [facility], [address] [place] [address] 10/17/2024 9:00 AM EST Appointment [facility] PET Scan [address] [place] [address] 10/17/2024 10:00 AM EST Appointment [facility] PET Scan [address] [place] [address] 10/17/2024 11:00 AM EST Office Visit [facility] [address] [facility], [address] [place] [phone] Juan Pablo eCe MD [address] [facility] [address] [place] [address] 10/17/2024 1:00 PM EST Clinical Support [facility] [address] [facility], [address] [place] [phone] 10/17/2024 2:20 PM EST Appointment [facility] [address] [place] [phone] 10/20/2024 3:30 PM EST Office Visit [facility] [address] [phone] Germaine Alejandro MD 800 [facility] [address] [place] [phone] documented as of this encounter Visit Diagnoses Not on filedocumented in this encounter Additional Health Concerns Assessment Noted Time A fall risk assessment has been complete d for the patient 09/23/2022 2:18 PM EST documented as of this encounter Care Teams Quantitative Associate Relationship Specialty Start Date End Date Manjit Gorman MD [address] [place] [address] PCP - General 09/23/22 documented as of this encounter
--- OUTSIDE RECORDS SUMMARY | 2024-07-27 06:58 | XMS_ITS | Encounter Summary ---
Author Organization Healthcare Address [address] [place] [address] Care Team Providers Care Commercial Pilot Name Role Phone Unavailable Primary Care Provider Unavailabl e Encounter Details Date Type Department Care Team (Latest Contact Info) Description 07/15/2022 - 07/15/2022 11:59 PM EST Hospital Encounter [facility] [address] [place] [address] Examination Discharge Disposition: Home or Self Care Social History Tobacco Use Types Packs/Day Years Used Date Smoking Tobacco: Never Assessed PHQ-2 Answer Date Recorded Patient Health Questionnaire-2 [...] suspected to have Coronavirus/COVID-19? No / Unsure 09/23/2022 2:07 PM EST documented as of this encounter Medications at Time of Discharge tadalafil (Cialis) 5 MG tablet TAKE 1 OR 2 TABLETS BY MOUTH DAILY NEEDED FOR ED 04/15/2022 sildenafil (Viagra) 100 MG tablet Take 1/2-1 tablet BY MOUTH once a day as needed for ED 03/21/2022 10/02/2022 documented as of this encounter Plan of Treatment Upcoming Encounters Date Type Department Care Team ([facility] Contact Info) Description 10/17/2024 8:00 AM EST Clinical Support [facility] [address] [facility], [address] [place] [address] 10/17/2024 9:00 AM EST Appointment [facility] PET Scan [address] [place] [address] 10/17/2024 10:00 AM EST Appointment [facility] PET Scan [address] [place] [address] 10/17/2024 11:00 AM EST Office Visit [facility] [address] [facility] [place] [address] Juan Pablo Cee MD [address] [facility] [address] [place] [address] 10/17/2024 1:00 PM EST Clinical Support [facility] [address] [facility], [address] [place] [address] 10/17/2024 2:20 PM EST Appointment [facility] [address] [place] [phone] 10/20/2024 3:30 PM EST Office Visit [facility] [address] [phone] Germaine Alejandro MD 800 [facility] [address] [place] [address] documented as of this encounter Procedures Procedure Name Priority Date/Time Associated Diagnosis Comments US ABDOMEN Routine 07/15/2022 12:00 AM EST Examination documented in this encounter Results * US Abdomen (07/15/2022 12:00 AM EST) Narrative IMAGING - 09/19/2022 5:11 PM EST This study was performed at an outside facility and has been loaded into the PACS system for reference only. ??This order has been auto-finalized and does not contain a result. us Juan Pablo Cee MD IMG US PROCEDURES Final Result IMAGING documented in this encounter Visit Diagnoses Diagnosis Examination Unspecified examination documented in this encounter
--- OUTSIDE RECORDS SUMMARY | 2024-07-27 06:58 | XMS_ITS | Encounter Summary ---
Author Organization [facility] Address [address] [place] [address] Care Team Providers Care Epic Cadence Specialists Name Role Phone Manjit Gorman MD Primary Care Provider Reason for Referral * Imaging (Routine) - Closed Specialty Diagnoses / Procedures Referred By Terri del rosario Referred To Contact Radiology Diagnoses Cancer of neck (CMS/HCC) Procedures CT Chest w IV Contrast Joshua Cee MD [address] [address] Phone: tel: fax: Referral ID Status Reason Start Date Expiration Date Visits Re quested Visits Authorized [id number] Closed 09/23/2022 03/24/2024 1 1 Reason for Visit * Imaging (Routine) - Closed Specialty Diagnoses / Procedures Referred By Terri del rosario Referred To Contact Radiology Diagnoses Cancer of neck (CMS/HCC) Procedures CT Chest w IV Contrast Joshua Cee MD [address] [address] Phone: tel: fax: Referral ID Status Reason Start Date Expiration Date Visits Re quested Visits Authorized [id number] Closed 09/23/2022 03/24/2024 1 1 Encounter Details Date Type Department Care Team (Latest Contact Info) Description 10/21/2022 11:50 AM EST - 10/21/2022 11:59 PM EST Hospital Encounter [facility] [address] [phone] Cancer of neck (CMS/HCC) Discharge Disposition: Home or Self Care [...] AM EDT documented as of this encounter Discharge Instructions * Attachments The following attachments cannot be sent through Care Everywhere. * Contrast Imaging Discharge Instructions ([place]) ([place]) documented in this encounter Medications at Time [...] [facility] [address] [facility], [address]nd [place] [address] 10/17/2024 9:00 AM EST Appointment [facility] PET Scan [address] [place] [address] 10/17/2024 10:00 AM EST Appointment [facility] PET Scan [address] [place] [phone] 10/17/2024 11:00 AM EST Office Visit [facility] [address] [facility], [address] [place] [address] Joshua Cee MD [address] [facility] [address] [place] [phone] 10/17/2024 1:00 PM EST Clinical Support [facility] [address] [facility], [address] [place] [phone] 10/17/2024 2:20 PM EST Appointment [facility] [address] [place] [phone] 10/20/2024 3:30 PM EST Office Visit [facility] [address] [facility], [address] [place] [phone] Germaine Alejandro MD [address] [facility] [address] [place] [address] documented as of this encounter Procedures Procedure Name Priority Date/Time Associated Diagnosis Comments CT CHEST W IV CONTRAST Routine 10/21/2022 12:25 PM EST Cancer of neck (CMS/HCC) POCT CREATININE ISTAT UNSOLICITED RESULTS Routine 10/21/2022 12:16 PM EST documented in this encounter Results * CT Chest w IV Contrast (10/21/2022 12:25 PM EST) Anatomical Region Laterality Modality Chest Computed Tomogra phy Impressions 10/21/2022 2:08 PM EST No evidence of neoplastic disease progression. CRITICAL RESULT: No. COMMUNICATION: Per this written report. Dictated by Christen Gautam MD on 10/21/2022 1:57 PM Signed by Christen Gautam MD on 10/21/2022 2:08 PM Narrative 10/21/2022 2:08 PM EST Exam/Procedure: CT CHEST W IV CONTRAST ordered by JOSHUA CEE, [id number] CLINICAL INDICATION: Head/neck cancer, surveillance TECHNIQUE: Multiple CT helical images were obtained from thoracic inlet through upper abdomen with administration of IV contrast. 100 ??mL of Omnipaque-300 were administered intravenously. ?? Total DLP (Dose-Length Product): 114.34 mGy.cm. Please [...] Musculoskeletal: No suspicious lytic or sclerotic lesion. Procedure Note Christen Gautam MD - 10/21/2022 Exam/Procedure: CT CHEST W IV CONTRAST ordered by JOSHUA CEE, [id number] CLINICAL INDICATION: Head/neck cancer, surveillance TECHNIQUE: Multiple CT helical images were obtained from thoracic inlet through upperabdomen with administration of IV contrast. 100 mL of Omnipaque-300 wereadministered intravenously. Total DLP (Dose-Length Product): 114.34 mGy.cm. Please note: The reportedvalue represents the total of one or more individual components during theCT acquisition on this date and at this time, and as such, the same valuemay appear in more than one CT report depending on theinterpreting/reporting physicians. COMPARISON: PET/CT from the same date FINDINGS: Mediastinum and Pleura: No enlarged lymph nodes. No pleural or pericardialeffusions. Small sliding-type hiatal hernia containing gastric cardia. Lungs: Calcified granuloma within left lung base. Cluster of noduleswithin superior segment of right middle lobe is not significantly changed.No new lesions are appreciated. Upper Abdomen: No suspicious lesions in the partially visualized upperabdomen. Musculoskeletal: No suspicious lytic or sclerotic lesion. IMPRESSION: No evidence of neoplastic disease progression. CRITICAL RESULT: No. COMMUNICATION: Per this written report. Dictated by Christen Gautam MD on 10/21/2022 1:57 PM Signed by Christen Gautam MD on 10/21/2022 2:08 PM us Joshua Cee MD IMG CT PROCEDURES Final Result * POCT creatinine (10/21/2022 12:16 PM EST) [facility] Creatinine, Point of Care 1.3 0.8 - 1.3 mg/dL 10/21/2022 12:25 PM EST [facility] POCT eGFR 58 mL/min/1. 73m*2 10/21/2022 12:25 PM EST [facility] Director Of Career Services ID Emani Ferrari 10/21/2022 12:25 PM EST [facility] Device ID [id number] 10/21/2022 12:25 PM EST [facility] Comment 10/21/2022 12:25 PM EST [facility] Comment: Testing performed on i-STAT at the point of care. Reported eGFRcr in mL/min/1.73m2 is based the CKD-EPI 2021 equation that does not use a race coefficient. Effective 04/02/22 our laboratory changed the eGFR calculation to the CKD-EPI 2021 equation from the previously reported eGFR, based on the MDRD equation. 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, face, and neck documented in this encounter Administered Medications Inactive Administered Medications - up to 3 most recent administrations Medication Order MAR Action Action Date Dose Rate Site iohexol (OMNIPaque) 350 MG/ML injection 100 mL 100 mL, Intravenous, Once in imaging, 1 dose, Starting on Thu10/21/22 at 1201, Until Thu10/21/22 at 1224, Routine, Imaging Protocol Orders Given 10/21/2022 12:24 PM EST 100 mL documented in this encounter Additional Health Concerns Assessment Noted Time A fall risk assessment has been complete d for the patient 10/21/2022 1:08 PM EST documented as of this encounter Care Teams Epic Cadence Specialists Relationship Specialty Start Date End Date Manjit Gorman MD [address] [place], [place] [phone] PCP - General 09/23/22 documented as of this encounter
--- OUTSIDE RECORDS SUMMARY | 2024-07-27 06:58 | XMS_ITS | Encounter Summary ---
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 Name Role Phone Unavailable Primary Care Provider Unavailabl e Encounter Details Date Type Department Care Team (Latest Contact Info) Description 08/21/2022 - 08/21/2022 11:59 PM EST Hospital Encounter [facility] [address] [place] [address] Examination Discharge Disposition: Home or [...] Upcoming Encounters Date Type Department Care Team ([facility] Contact Info) Description 10/17/2024 8:00 AM EST Clinical Support [facility] [address] [facility], [address] [place] [address] 10/17/2024 9:00 AM EST Appointment [facility] PET Scan [address] [place] [address] 10/17/2024 10:00 AM EST Appointment [facility] PET Scan [address] [place] [address] 10/17/2024 11:00 AM EST Office Visit [facility] [address] [facility], [address] [place] [address] Juan Pablo Cee MD [address] [facility] [address] [place] [address] 10/17/2024 1:00 PM EST Clinical Support [facility] [address] [facility] [place] [address] 10/17/2024 2:20 PM EST Appointment [facility] [address] [place] [phone] 10/20/2024 3:30 PM EST Office Visit [facility] [address] [phone] Germaine Alejandro MD 800 [facility] [address] [place] [address] documented as of this encounter Procedures Procedure Name Priority Date/Time Associated Diagnosis Comments US ABDOMEN Routine 08/21/2022 12:00 AM EST Examination documented in this encounter Results * US Abdomen (08/21/2022 12:00 AM EST) Narrative IMAGING - 09/19/2022 [...]
--- OUTSIDE RECORDS SUMMARY | 2024-07-27 06:58 | XMS_ITS | Encounter Summary ---
Author Organization [facility] Address [address] [place] [address] Care Team Providers Care Retail Solar Advisor Name Role Phone Manjit Gorman MD Primary Care Provider [phone] Reason for Referral * Imaging (Routine) - Closed Specialty Diagnoses / Procedures Referred By Terri t Referred To Contact Radiology Diagnoses Cancer of neck (CMS/HCC) Procedures PET/CT FDG Skull Base To Mid Thigh Joshua Cee MD [address] [address] Phone: tel: fax: Referral ID Status Reason Start Date Expiration Date Visits Re quested Visits Authorized [id number] Closed 09/23/2022 03/24/2024 2 2 * Imaging (Routine) - Closed Specialty Diagnoses / Procedures Referred By Contac t Referred To Contact Radiology Diagnoses Cancer of neck (CMS/HCC) Procedures CT Chest w IV Contrast Joshua Cee MD [address] [address] Phone: tel: fax: Referral ID Status Reason Start Date Expiration Date Visits Re quested Visits Authorized [id number] Closed 09/23/2022 03/24/2024 1 1 Reason for Visit * Reason Comments New Patient Encounter Details Date Type Department Care Team (Late st Contact Info) Description 09/23/2022 2:30 PM EST Consult [facility] Neck [facility] Res[facility] [address] [place] [address] Joshua Cee MD [address] [place] [address] Cancer of neck (CMS/HCC) (Primary Dx) Social History Tobacco Use Types Packs/Day Years Used Date Smoking Tobacco: Never Smokeless Tobacco: Never Tobacco Cessation:Counseling Given: Not Answered Alcohol Use Standard Drinks/Week Comments Never 0 (1 standard drink = 0.6 oz pur e alcohol) PHQ-2 Answer Date Recorded Patient Health Questionnaire-2 [...] Sign Reading Time Taken Comments Blood Pressure 166/70 09/23/2022 2:28 PM EST Pulse 74 09/23/2022 2:28 PM EST Temperature 36.7 ??C (98.1 ??F) 09/23/2022 2:28 PM ES T Respiratory Rate 16 09/23/2022 2:28 PM EST Oxygen Saturation 99% 09/23/2022 2:28 PM EST Inhaled Oxygen Concentration - - Weight 83.4 kg (183 lb 14.4 oz) 09/23/2022 2:28 PM EST Height 188 cm (6' 2 ) 09/23/2022 2:28 PM EST Body Mass Index 23.61 09/23/2022 2:28 PM EST documented in this encounter Miscellaneous Notes * Progress Notes - Leader, Nick Malone DO - 09/23/2022 2:[address] Liudmila Salinas I had the pleasure of seeing Mr. Erick Sierra in my Head and Neck clinic at the [facility] the [facility]. As you know, Mr. Erick Sierra is a very pleasant 72 y.o. patient who was kindly sent to my clinicin consultation for evaluation and management of his [...] The patient's complete review of system from 09/23/22 was performed today. All systems were negative except for those mentioned in the HPI, prostate cancer, hypertension, allergic rhinitis, history of skin cancer. Radiographs: - CT scan of the neck: . 08/12/2022: asymmetry in the right oropharynx base of tongue with right-sided cervical lymphadenopathy - CT scan of the chest: . Pending - PET CT scan: . 09/05/2022: Right level 2 lymph node with an SUV of 3.2 and the lymph node measured 1.7 cm. No evidence of primary head and neck source of malignancy. I independently reviewed the images of the CT scan of the neck from 08/12/2022. I discussed my findings with the patient. 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 Liudmila Salinas) Allergies: No Known Allergies Past medical history: As in history of present illness, prostate cancer, hypertension, allergic rhinitis, history of skin cancer. Past surgical history: Prostate biopsy, tonsillectomy, vasectomy Family history: reviewed and consistent with hypertension in his mother, hypertension in his father Social history: The patient has never smoked, drinks 1 beer a day or use any illicit drugs. PHYSICAL EXAMINATION: Visit Vitals BP (!) 166/70 (BP Location: Left arm, Patient Position: Sitting, BP Cuff Size: Adult) Pulse 74 Temp 36.7 ??C (98.1 ??F) (Oral) Ht 1.88 m (6' 2 ) Wt 83.4 kg (183 lb 14.4 oz) SpO2 99% BMI 23.61 kg/m?? General: He is a very healthy-appearing [...] chest is symmetrical, breathing comfortably without effort. PROCEDURE PERFORMED: Fiberoptic Flexible Laryngoscopy INDICATION: Unknown primary squamous cell carcinoma DESCRIPTION OF PROCEDURE: After getting the verbal consent, I sprayed bilateral nasal cavities with lidocaine 4% and Ga-Synephrine 1/100,000. I examined both nasal after obtaining adequate decongestion. Septum is midline. Sinonasal cavities: Clear without any suspicious lesions. No pus or polyps. Nasopharynx was clean without any suspicious lesions. Fossae of Rosenmuller: Clear bilaterally without any lesions. There is an area of induration along the base of tongue glossotonsillar sulcus Vallecula is symmetrical without any suspicious lesions. Hypopharynx: no suspicious lesions are noted. Pyriform sinuses, post-cricoid, lateral pharyngeal torres, posterior pharyngeal wall: are unremarkable. Endolarynx was normal. VC mobility is normal. 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 I reviewed all outside notes provided to me and have summarize them in the HPI above. They consisted of 35 pages. I independently reviewed the CT neck with contrast from 08/12/2022 this demonstrates a right oropharynx asymmetry with right-sided cervical lymphadenopathy. I discussed these imaging findings with the patient. I also see asymmetry of the right base of tongue. He has a biopsy-proven P 16 positive squamous cell carcinoma of a right lymph node. Scope exam demonstrated the likely area along the right base of tongue glossotonsillar sulcus. I will obtain a CT chest request the images of the PET-CT scan be uploaded in our system. I will see him in my clinic with same-day follow-up to review the imaging. At that time we will discuss direct laryngoscopy with biopsy to determine the site of the primary lesion. He will follow up sooner if problems arise. Joshua Cee MD MS FACS General Internist Head & Neck Oncology Rhinology & Skull Base Surgery Cosigned by Joshua Cee MD at 09/26/2022 12:49 PM EST Associated attestation - Joshua Cee MD - 09/26/2022 12:49 PM EST I saw and evaluated the patient with the resident/fellow. I discussed the case with the resident/fellow and agree with the findings and plan as documented. I was present for the entire procedure. Joshua Cee MD MS FACS General Internist Head & Neck Oncology Rhinology & Skull Base Surgery documented in this encounter Plan of Treatment Upcoming Encounters Date Type Department Care Team (Late st Contact Info) Description 10/17/2024 8:00 AM EST Clinical Support [facility] [address] [address] 10/17/2024 9:00 AM EST Appointment [facility] PET Scan [address] [place] [address] 10/17/2024 10:00 AM EST Appointment [facility] PET Scan [address] [place] [address] 10/17/2024 11:00 AM EST Office Visit [facility] [address] [address] Joshua Cee MD [address] [facility] [address] [place] [address] 10/17/2024 1:00 PM EST Clinical Support [facility] [address] [address] 10/17/2024 2:20 PM EST Appointment [facility] Radiology [address] [place] [address] 10/20/2024 3:30 PM EST Office Visit [facility] Ne[facility] Res[facility] [address] [address] Germaine Alejandro MD [address] [facility] [address] [place] [address] documented as of this encounter Results * CT Chest w [...] W IV CONTRAST ordered by JOSHUA CEE, [id number] CLINICAL INDICATION: Head/neck cancer, surveillance TECHNIQUE: Multiple [...] W IV CONTRAST ordered by JOSHUA CEE, [id number] CLINICAL INDICATION: Head/neck cancer, surveillance TECHNIQUE: Multiple [...] Christen Gautam MD on 10/21/2022 2:08 PM Joshua Cee MD IMG CT PROCEDURES Final Result * PET/CT FDG Skull Base To Mid Thigh (10/21/2022 10:37 AM EST) Anatomical Region Laterality Modality Nuclear Medicine Impressions 10/21/2022 2:17 PM EST 1. Hypermetabolic right base of tongue mass, compatible with the biopsy established diagnosis of squamous cell carcinoma. 2. Hypermetabolic right level IIA lymphadenopathy, compatible with bala disease. In addition, there is a probable metastatic right level IIB lymph node. 3. No definitive FDG PET evidence of metabolically active distant metastatic disease outside of the head/neck. 4. Cluster of mildly hypermetabolic, subcentimeter peribronchovascular pulmonary nodules at the medial right lung base, most suggestive of an infectious/inflammatory process such as aspiration pneumonitis or sequela thereof. Recommend short-term follow-up chest CT within 3 months. 5. Mild, tubular FDG avidity associated with circumferential thickening of the distal esophagus, most probably banking representative of reflux esophagitis. Clinical correlation is recommended to guide the need for any additional workup. 6. Mild hypermetabolism at the cutaneous surface of the left post-auricular region, for which direct visualization is recommended to exclude a suspicious cutaneous lesion. CRITICAL RESULT: No. COMMUNICATION: Per this written report. By electronically signing this report, I, the attending physician, attest that I have personally reviewed the images/data for the above examination(s) and agree with the final edited report. Dictated by Anselmo Burt DO on 10/21/2022 11:27 AM Signed by Filemon Ley MD on 10/21/2022 2:17 PM Narrative 10/21/2022 2:17 PM EST Exam/Procedure: PET/CT FDG SKULL BASE TO MID THIGH ordered by JOSHUA CEE, [id number] CLINICAL INDICATION: 72-year-old male with a new diagnosis of squamous cell carcinoma of the right base of the tongue. History of prostate cancer. The present study is performed for initial staging. TECHNIQUE: Preparation: Last oral intake (except water) on October 20, 2022 at 10:00 PM. Diabetic: No. Blood glucose at time of FDG administration: 96 mg/dL. Radiopharmaceutical: 9.7 mCi of F-18 FDG administered intravenously at right antecubital fossa at 9:15 AM. Incubation interval: 50 minutes. Oral contrast: Not applicable. Positioning: Arms raised for whole body scan, by sides for neck scan PET/CT scanner: Siemens Biograph 40 mCT. PET/CT acquisition: Wubltb-zj-jam thighs, plus magnification (zoomed) neck. Standardized uptake value (SUV): Corrected for body weight only. CT: Low-dose, [id number], without intravenous contrast. TOTAL DLP (Dose Length Product): 893 mGy.cm. COMPARISON/CORRELATION: Contemporaneous CT imaging of the chest. CT imaging of the soft tissues of the neck of August 12, 2022. FINDINGS: HEAD/NECK: Symmetric, physiologic FDG uptake in the brain parenchyma. Intense hypermetabolism at the right base of the tongue (Series 3, Image 71, maximum SUV 16.3). This corresponds with subtle soft tissue fullness. Intensely hypermetabolic right cervical level IIA lymphadenopathy (Series 6, Image 78, 2.0 x 1.9 cm, maximum SUV 16.0). Mildly hypermetabolic right cervical level IIB lymph node (Series 6, Image 76, 8 x 6 mm, maximum SUV 2.2). The thyroid is normal. Focus of mild FDG avidity at the cutaneous surface of the left post auricular region (Series 3, Image 47, maximum SUV 2.8). CHEST: Physiologic FDG avidity involving the left ventricular myocardium. There are no pericardial or pleural effusions. There are no hypermetabolic or pathologically enlarged mediastinal, hilar or axillary lymph nodes. ?? There is a cluster of mildly hypermetabolic peribronchovascular pulmonary nodules at the medial right lung base with an SUV of 2.4 (Series 12, Images 51-54, maximum SUV 2.4). Mild, tubular FDG uptake associated with circumferential thickening of the distal esophagus (Series 12, Image 76, Series 11, Image 73, maximum SUV 3.5). ABDOMEN: Physiologic FDG avidity in the liver, spleen, adrenal glands and pancreas. Tubular, physiologic FDG avidity throughout normal caliber loops of small bowel and colon. There is no ascites. There are no hypermetabolic or pathologically enlarged mesenteric, retroperitoneal, pelvic or inguinal lymph nodes. ?? Symmetric, physiologic excretion of the radiotracer from both kidneys. Status post prostatectomy. MUSCULOSKELETAL: There are no hypermetabolic osseous or soft tissue lesions. Significant, right concave scoliosis of the lumbar spine. There are no lytic or blastic osseous lesions evident on the low-dose CT component of the exam. Procedure Note Filemon Ley MD - 10/21/2022 Exam/Procedure: PET/CT FDG SKULL BASE TO MID THIGH ordered by JOSHUA PEREIRA, [id number] CLINICAL INDICATION: 72-year-old male with a new diagnosis of squamous cell carcinoma of theright base of the tongue. History of prostate cancer. The present study isperformed for initial staging. TECHNIQUE: Preparation: Last oral intake (except water) on October 20, 2022 at 10:00PM. Diabetic: No. Blood glucose at time of FDG administration: 96 mg/dL. Radiopharmaceutical: 9.7 mCi of F-18 FDG administered intravenously atright antecubital fossa at 9:15 AM. Incubation interval: 50 minutes. Oral contrast: Not applicable. Positioning: Arms raised for whole body scan, by sides for neck scan PET/CT scanner: Siemens Biograph 40 mCT. PET/CT acquisition: Kezjdu-je-mul thighs, plus magnification (zoomed)neck. Standardized uptake value (SUV): Corrected for body weight only. CT: Low-dose, [id number]-zmpahl-cnvb, without intravenous contrast. TOTAL DLP (Dose Length Product): 893 mGy.cm. COMPARISON/CORRELATION: Contemporaneous CT imaging of the chest. CT imaging of the soft tissues ofthe neck of August 12, 2022. FINDINGS: HEAD/NECK: Symmetric, physiologic FDG uptake in the brain parenchyma. Intense hypermetabolism at the right base of the tongue (Series 3, Image71, maximum SUV 16.3). This corresponds with subtle soft tissuefullness. Intensely hypermetabolic right cervical level IIA lymphadenopathy (Series6, Image 78, 2.0 x 1.9 cm, maximum SUV 16.0). Mildly hypermetabolic right cervical level IIB lymph node (Series 6, Image76, 8 x 6 mm, maximum SUV 2.2). The thyroid is normal. Focus of mild FDG avidity at the cutaneous surface of the left postauricular region (Series 3, Image 47, maximum SUV 2.8). CHEST: Physiologic FDG avidity involving the left ventricular myocardium. Thereare no pericardial or pleural effusions. There are no hypermetabolic or pathologically enlarged mediastinal, hilaror axillary lymph nodes. There is a cluster of mildly hypermetabolic peribronchovascular pulmonarynodules at the medial right lung base with an SUV of 2.4 (Series 12,Images 51-54, maximum SUV 2.4). Mild, tubular FDG uptake associated with circumferential thickening of thedistal esophagus (Series 12, Image 76, Series 11, Image 73, maximum SUV3.5). ABDOMEN: Physiologic FDG avidity in the liver, spleen, adrenal glands and pancreas. Tubular, physiologic FDG avidity throughout normal caliber loops of smallbowel and colon. There is no ascites. There are no hypermetabolic or pathologically enlarged mesenteric,retroperitoneal, pelvic or inguinal lymph nodes. Symmetric, physiologic excretion of the radiotracer from both kidneys. Status post prostatectomy. MUSCULOSKELETAL: There are no hypermetabolic osseous or soft tissue lesions. Significant, right concave scoliosis of the lumbar spine. There are no lytic or blastic osseous lesions evident on the low-dose CTcomponent of the exam. IMPRESSION: 1. Hypermetabolic right base of tongue mass, compatible with the biopsyestablished diagnosis of squamous cell carcinoma. 2. Hypermetabolic right level IIA lymphadenopathy, compatible with nodaldisease. In addition, there is a probable metastatic right level IIB lymphnode. 3. No definitive FDG PET evidence of metabolically active distantmetastatic disease outside of the head/neck. 4. Cluster of mildly hypermetabolic, subcentimeter peribronchovascularpulmonary nodules at the medial right lung base, most suggestive of aninfectious/inflammatory process such as aspiration pneumonitis or sequelathereof. Recommend short-term follow-up chest CT within 3 months. 5. Mild, tubular FDG avidity associated with circumferential thickening ofthe distal esophagus, most probably banking representative of reflux esophagitis.Clinical correlation is recommended to guide the need for any additionalworkup. 6. Mild hypermetabolism at the cutaneous surface of the leftpost-auricular region, for which direct visualization is recommended toexclude a suspicious cutaneous lesion. CRITICAL RESULT: No. COMMUNICATION: Per this written report. By electronically signing this report, I, the attending physician, attestthat I have personally reviewed the images/data for the aboveexamination(s) and agree with the final edited report. Dictated by Anselmo Burt DO on 10/21/2022 11:27 AM Signed by Filemon Ley MD on 10/21/2022 2:17 PM Joshua Cee MD IMG NM PROCEDURES Final Result documented in this encounter Visit Diagnoses Diagnosis Cancer of neck (CMS/HCC)- Primary Malignant neoplasm of head, face, and neck Cancer of neck (CMS/HCC) Malignant neoplasm of head, face, and neck Cancer of neck (CMS/HCC) Malignant neoplasm of head, face, and neck documented in this encounter Additional Health Concerns Assessment Noted Time A fall risk assessment has been complete d for the patient 09/23/2022 2:18 PM EST documented as of this encounter Care Teams Retail Solar Advisor Relationship Specialty Start Date End Date Manjit Gorman MD [address] [place], [place] [id number] PCP - General 09/23/22 documented as of this encounter
--- OUTSIDE RECORDS SUMMARY | 2024-07-27 06:58 | XMS_ITS | Continuity of Care Document ---
Author Organization [facility]NA K[facility] [place], [facility] - P-3624 Address [address], [place] [address] Care Team Providers Care Tank House Operator Helper Name Role Phone LALITA WILSON Primary Care Provider Assessment No assessment recorded. Plan of Treatment Reminders Order Date Submit Date Provider Last Modified By Organization Details Last Modified Time Details Appointments Acute 15 024 08:45AM Mayra Olivares NP Not available Not available Not available Lab None recorde d. Referral None recorde d. Procedures None recorde d. Surgeries None recorde d. Imaging None recorde d. Medication Orders None recorde d. Patient TargetsNo targets recorded. Patient InstructionsNo instructions recorded. Reason for Referral None Reported. Results Created Date Observation Date Name Description Value Unit Range Abnormal Flag Note LastModifiedBy Organization Detail LastModifiedTime 04/27/20 24 04/27/2024 audio gram No observ ation record ed. [email or web address] Not Available 2023 15:01:41 Result Notes None recorded. 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 Procedures Surgical History Date Name Laterality Status Provider Name and Address Organization Details Recorded Time 08/27/20 Fiberoptic Laryngoscopy completed Liudmila Salinas MD [address], [place], [address], [place] - [facility] - [place] [facility] [place] 08/27/2022 10:45:50 07/29/20 Fiberoptic Laryngoscopy completed Bobby Marcelino [place] - [facility] - [place] 07/29/2022 15:27:05 09/07/19 22 Radiation Therapy completed Staciesoraya Hernández [place] - [facility] - [place] 08/27/2022 08:59:19 09/07/19 21 Cancer Surgery completed Stacie Betty [place] - [facility] - [place] 08/27/2022 08:59:19 09/07/19 19 Other completed Stacie Betty [place] [facility] [place] 2022 16:31:05 09/07/18 89 vasectomy completed Stacie Betty [place] [facility] - [place] 07/29/2022 14:47:18 09/07/18 89 Other completed Stacie Betty [place] [facility] - [place] 08/27/2022 08:59:19 09/07/18 58 tonsillectomy completed Stacie Betty [place] [facility] - [place] 07/29/2022 14:47:31 09/07/18 58 Tonsillectomy/Angela noidectomy [place] Stacie Betty [place] - [facility] - [place] 08/27/2022 08:59:19 Imaging Results None recorded. Procedure Notes None recorded. Medical Equipment None Reported. Allergies No known drug allergies Medications Name Sig Start Date Stop Date Status Note LastModified by Organization Details LastModified Time gabapentin 600 mg tablet TAKE 1/2 (ONE-HALF ) TABLET BY MOUTH THREE TIMES DAILY 04/11 completed Not Available Not Available Not Available ciprofloxac in 750 mg tablet TAKE 1 TABLET BY MOUTH TWICE DAILY 07/29 completed Not Available Not Available Not Available hydrocodone 5 mg-acetamin ophen 325 mg tablet 04/11 completed Not Available Not Available Not Available ondansetron HCl 8 mg tablet TAKE 1 TABLET BY MOUTH EVERY 8 HOURS NEEDED FOR NAUSEA OR VOMITING 04/11 completed Not Available Not Available Not Available amlodipine 2.5 mg-benazepr il 10 mg capsule TAKE 1 CAPSULE BY MOUTH ONCE DAILY active Not Available Not Available No t Available prochlorper azine maleate 10 mg tablet TAKE 1 TABLET BY MOUTH EVERY 6 HOURS NEEDED FOR NAUSEA OR VOMITING 04/11 completed Not Available Not Available Not Available sildenafil 100 mg tablet Take 1/2-1 tablet BY MOUTH once a day as needed for ED 07/26 completed Not Available Not Available Not Available acyclovir 800 mg tablet TAKE 1 TABLET BY MOUTH TWICE DAILY UNTIL LESIONS ARE GONE 04/11 completed Not Available Not Available Not Available terbinafine HCl 250 mg tablet TAKE 1 TABLET BY MOUTH ONCE DAILY FOR 7 DAYS THE FIRST WEEK OF EACH MONTH FOR 6 MONTHS 04/11 completed Not Available Not Available Not Available tamsulosin 0.4 mg capsule TAKE 1 CAPSULE BY MOUTH ONCE DAILY AT NIGHT 04/11 completed Not Available Not Available Not Available cephalexin 500 mg capsule TAKE 1 CAPSULE BY MOUTH THREE TIMES DAILY 09/10 completed Not Available Not Available Not Available dexamethaso ne 4 mg tablet TAKE 2 TABLETS BY MOUTH ONCE DAILY FOR 3 DAYS AFTER EACH DOSE OF CISPLATIN 04/11 completed Not Available Not Available Not Available tadalafil 5 mg tablet active Not Available Not Available No t Available Multivitami n 50 Plus 1 po qd 2023 active Not Available Not Available Not Avai lable elderberry fruit 350 mg capsule Take 1 capsule by oral route before meal(s). 2023 active Not Available Not Available Not Avai lable Vitals None Recorded Social History Question Answer Notes LastModified by Organizat ion Details LastModified Time Tobacco Smoking Status Never Smoker Stacie Hernández [facility] [place], [place] - [facility] - [place] & [place] 07/29/2022 14:46:49 Do You Have An Advance Directive? Yes Information not available 08/27/2022 What Is Your Level Of Alcohol Consumption? Occasional Information not available 08/27/2022 Are You Blind Or Do You Have Difficulty Seeing? No Information not available 08/27/2022 What Is Your Occupation? [email or web address] Information not available 09/09/2023 What Was The Date Of Your Most Recent Tobacco Screening? 09/08/2022 [email or web address] Information not available 04/11/2024 Are You Passively Exposed To Smoke? No Information no t available 2022 Do You Or Have You Ever Used Smokeless Tobacco? Never Used Smokeless Tobacco Information not available 2022 How Much Tobacco Do You Smoke? No Information not available 2022 Do You Feel Stressed (tense, Restless, Nervous, Or Anxious, Or Unable To Sleep At Night)? [id number] Information not available 08/27/2022 Do You Use Any Illicit Or Recreational Drugs? No Information not available 08/27/2022 How Many Years Have You Smoked Tobacco? Never 0 [email or web address] Information not available 04/11/2024 Sex: Male Functional Status Question Answer Note LastModified by Organization D etails LastModified Time What is your exercise level? Moderate Information not available 08/27/2022 Mental Status None recorded. Family History Relationship Description Onset Age of this Age Resolved Age Notes LastModified by Organization Details LastModified Time Mother Hypertensive disorder pt. added direct ly (07/26) [email or web address] Not available 07/26/2022 18:28:31 Father Hypertensive disorder pt. added direct ly (07/26) [email or web address] Not available 07/26/2022 18:28:31 Medical History Condition Response Allergies/Hayfever N Heart Problems N Other Y None N Heart Conditions N Emphysema N Migraines N Thyroid Problems N Developmental Delay N Glaucoma N Depression N Anemia N Immune System Disorder N Anesthesia Complications N Heart Attack (VA) N Anxiety Disorder N Diabetes N Bleeding Disorder N Arthritis N Hearing Loss N Tuberculosis N Acid Reflux (GERD) N Hyperlipidemia N Cancer Y Stroke N Asthma N Sleep Disorder N GERD/Reflux N Heart Disease N Headaches N Fibromyalgia N Hypertension Y Speech Delay N Kidney Disease N Past Encounters Encounter ID Performer Location Encounter Start Date Encounter Closed Date Diagnosis/Indication Diagnosis SNOMED-CT Code Diagnosis ICD10 Code [id number] Mayra Olivares NP, [facility] Urology-[address] [place] [address] 04/11/2024 09:37:20 04/11/2024 10:08:27 Carcinoma of prostate 676273869 [id number] [id number] SEVEN FR[id number], [facility] [place] [address] 04/27/2024 14:09:59 04/27/2024 14:21:44 Sensorineural hearing loss 85911880 H90.3 Health Concerns Section Related Observation LastModified by Organization Detai ls LastModified Time None Recorded Concern Status LastModified by Organization Details LastModified Time None Recorded Payers Encounter Date Sequence Insurance Name Policy Number Policy Phelps Covered Member ID Phelps Member ID Guarantor Name 04/27/2024 [employer] Mayr Rigo BOLAÑOSSAGRARIO, MARY Sierra Notes Date Note Type Note Provider Name and Address Organization Details Recorded Time 04/27/2024 text/html Mr. Sierra was se en today for an audiologic evaluation due to long-standing hearing loss. He currently wears [employer] 24 R NIR hearing aids bilaterally. His most recent hearing evaluation was in 2022. Otoscopic inspection was unremarkable bilaterally. Audiometric testing revealed a mild, sloping to severe, low through high freq SNHL bilaterally with good word rec scores. Hearing thresholds show no significant change in comparison to previous exam in 2022. 1-Discussed findings with Mr. Sierra. 2-Cleaned and adjusted hearing aids this date. 3-F/u hearing testing annually to monitor. SEVEN FRITZ [address] , [place], [address], [facility] - [place] & [place] 04/27/2024 15:01:46
--- OUTSIDE RECORDS SUMMARY | 2024-07-27 06:58 | XMS_ITS | Encounter Summary ---
Author Organization Healthcare Address [address] [place] [address] Care Team Providers Care Exchange Mechanic Name Role Phone Unavailable Primary Care Provider Unavailabl e Encounter Details Date Type Department Care Team (Latest Contact Info) Description 11/12/2021 - 11/12/2021 11:59 PM EST Hospital Encounter Image Record Center [address] [place] [address] Examination Discharge Disposition: Home or Self Care [...] CC Head, Neck & Respiratory [address] [facility], [address]nd [place] [address] 10/17/2024 9:00 AM EST Appointment [facility] PET Scan [address] [place] [address] 10/17/2024 10:00 AM EST Appointment [facility] PET Scan [address] [place] [address] 10/17/2024 11:00 AM EST Office Visit Pav CC Head, Neck & Respiratory [address] [facility], [address]nd [place] [address] Juan Pablo Cee MD [address] [facility] [address] [place] [address] 10/17/2024 1:00 PM EST Clinical Support Pav CC Head, Neck & Respiratory [address] [facility], [address] [place] [address] 10/17/2024 2:20 PM EST Appointment [facility] Radiology [address] [place] [address] 10/20/2024 3:30 PM EST Office Visit Pav CC Head, Neck & Respiratory [address] [facility], [address] [place] [address] Germaine Alejandro MD [address] [facility] [address] [place] [address] documented as of this encounter Procedures Procedure Name Priority Date/Time Associated Diagnosis Comments MR PELVIS WO IV CONTRAST Routine 11/12/2021 12:00 AM EST Examination documented in this encounter Results * MR Pelvis wo IV Contrast (11/12/2021 12:00 AM EST) Narrative IMAGING - 09/19/2022 5:11 PM EST This study was performed at an outside facility and has been loaded into the PACS system for reference only. ??This order has been auto-finalized and does not contain a result. us Juan Pablo Cee MD IMG MRI PROCEDURES Final Result IMAGING documented in this encounter Visit Diagnoses Diagnosis Examination Unspecified examination documented in this encounter
--- OUTSIDE RECORDS SUMMARY | 2024-07-27 06:58 | XMS_ITS | Encounter Summary ---
Author Organization Healthcare Address [address] [id number] Care Team Providers Care Urologist Name Role Phone Manjit Gorman MD Primary Care Provider [phone] Encounter Details Date Type Department Care Team (Late st Contact Info) Description 09/29/2022 Telephone Pav CC Head, Neck & Respiratory [address] , [address] [place] [address] Juan Pablo Cee MD [address] [facility] [address] [place] [address] Social History Tobacco Use Types Packs/Day Years Used Date Smoking Tobacco: Never Smokeless Tobacco: Never Alcohol Use Standard Drinks/Week Comments Never 0 [...] suspected to have Coronavirus/COVID-19? No / Unsure 10/02/2022 11:01 AM EST documented as of this encounter Miscellaneous Notes * Telephone Encounter - Amee Guzman RN - 10/03/2022 9:15 AM EST Pt scheduled for DL biopsy on 10/09, per Dr Cee. Awaiting on word from Dr Cee on whether or not to complete scans next week or OK to wait until 10/21. * Telephone Encounter - Lacey Valentin - 09/29/2022 9:06 AM EST Patient Phone Message Reason for Call: Pt is wondering if he should be concerned about how long the scans are taking to be scheduled. ENT who referred to Dr. Cee told the pt to keep this rolling, pt is calling to ask if this is the typical timeline to be scheduled or if he should try to be scheduled else where for the scans. Best contact number and optimal time of day to reach caller: [phone] Note: Please do not reply to this message. Follow-up communication and further actions as a result of this message need to be communicated with the patient directly, if the patient is not active onMyChart. If the patient is active on MyChart, they will receive notification of the communication/outcome via [employer]. documented in this encounter Plan of Treatment Upcoming Encounters Date Type Department Care Team (Late st Contact Info) Description 10/17/2024 8:00 AM EST Clinical Support Pav CC Head, Neck & Respiratory [address] [address] 10/17/2024 9:00 AM EST Appointment [facility] PET Scan 800 [place] [address] 10/17/2024 10:00 AM EST Appointment [facility] PET Scan 800 [place] [address] 10/17/2024 11:00 AM EST Office Visit Pav CC Head, Neck & Respiratory [address] [address] Juan Pablo Cee MD [address] [facility] [address] [place] [address] 10/17/2024 1:00 PM EST Clinical Support Pav CC Head, Neck & Respiratory [address] [place] [address] 10/17/2024 2:20 PM EST Appointment [facility] Radiology [address] [place] [address] 10/20/2024 3:30 PM EST Office Visit Pav CC Head, Neck & Respiratory 800 [facility], [address] [place] [address] Germaine Alejandro MD [address] [facility] Jyoth[address] Junior [facility] [address] [place] [address] documented as of this encounter Visit Diagnoses Not on filedocumented in this encounter Additional Health Concerns Assessment Noted Time A fall risk assessment has been complete d for the patient 09/23/2022 2:18 PM EST documented as of this encounter Care Teams Urologist Relationship Specialty Start Date End Date Manjit Gorman MD [address] [place] [address] PCP - General 09/23/22 documented as of this encounter
--- OUTSIDE RECORDS SUMMARY | 2024-07-27 06:58 | XMS_ITS | Encounter Summary ---
Author Organization [facility] Address [address] [place] [address] Care Team Providers Care Pulpit Operator Name Role Phone Manjit Gorman MD Primary Care Provider Encounter Details Date Type Department Care Team (Latest Contact Info) Description 10/02/2022 Travel Social History Tobacco Use Types Packs/Day [...] [facility], 2nd [place] [address] 10/17/2024 9:00 AM EST Appointment [facility] PET Scan [address] [place] [address] 10/17/2024 10:00 AM EST Appointment [facility] PET Scan [address] [place] [address] 10/17/2024 11:00 AM EST Office Visit Pav CC Head, Neck & Respiratory 800 [facility], [address]nd [place] [address] Juan Pablo Cee MD [address] [facility] [address] [place] [address] 10/17/2024 1:00 PM EST Clinical Support Pav CC Head, Neck & Respiratory 800 [facility], [address]nd [place] [address] 10/17/2024 2:20 PM EST Appointment [facility] Radiology [address] [place] [address] 10/20/2024 3:30 PM EST Office Visit Pav CC Head, Neck & Respiratory [address] [address] Germaine Alejandro MD 800 [facility] [address] [place] [address] documented as of this encounter Visit Diagnoses Not on filedocumented in this encounter Additional Health Concerns Assessment Noted Time A fall risk assessment has been complete d for the patient 09/23/2022 2:18 PM EST documented as of this encounter Care Teams Pulpit Operator Relationship Specialty Start Date End Date Manjit Gorman MD [address] [place] [address] PCP - General 09/23/22 documented as of this encounter
--- OUTSIDE RECORDS SUMMARY | 2024-07-27 06:58 | XMS_ITS | Encounter Summary ---
Author Organization [facility] Address [address] [id number] Care Team Providers Care Director Of Employee Development Name Role Phone System, Provider Not In MD Primary Care Provider Unavailable Manjit Gorman MD Primary Care Provider [phone] Olegario Juarez MD Unavailable [phone] Encounter Details Date Type Department Care Team (Late Contact Info) Description 09/15/2022 Lab Requisition [facility] Lab [address] [place] [address] Joel Gamez MD [address] [facility] [address] [place] [address] Localized swelling, mass and lump, neck Social History Tobacco Use Types Packs/Day Years [...] Respiratory 800 [facility], [address]nd [place] [address] 10/17/2024 9:00 AM EST Appointment [facility] PET Scan [address] [place] [address] 10/17/2024 10:00 AM EST Appointment [facility] PET Scan [address] [place] [address] 10/17/2024 11:00 AM EST Office Visit Pav CC Head, Neck & Respiratory 800 [facility], 2nd [place] [address] Juan Pablo Cee MD [address] [facility] [address] [place] [address] 10/17/2024 1:00 PM EST Clinical Support Pav CC Head, Neck & Respiratory [address] [facility], 2[address] [place] [address] 10/17/2024 2:20 PM EST Appointment [facility] Radiology [address] [place] [address] 10/20/2024 3:30 PM EST Office Visit Pav CC Head, Neck & Respiratory [address] [facility], [address] [place] [address] Germaine Alejandro MD [address] [facility] [address] [place] [address] documented as of this encounter Procedures Procedure Name Priority Date/Time Associated Diagnosis Comments SURGICAL PATHOLOGY CONSULT Routine 09/15/2022 11:12 AM EST Localized swelling, mass and lump, neck documented in this encounter Results * Surgical Pathology Consult (09/15/2022 11:12 AM EST) Case Report Sugical Pathology Consult ? Case: [id number] ? Authorizing Provider: ??Joel Gamez MD ? Collected: ? 09/15/2022 1112 ? Ordering Location: ? [facility] ?Received: ?09/15/2022 1112 ? Pathologist: ? Carline Toribio MD ? Specimen: ?Lymph Node, [id number] ? 09/16/2022 9:44 AM EST [facility] Final Diagnosis A. 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 09/16/2022 9:44 AM [facility] Comment Review of outside IHC shows diffuse strong expression (>90%) for p16 in groups of metastatic squamous cells in the lymph node (controls are appropriately reactive). 09/16/2022 9:[address] [facility] Clinical Information R22.1 - Localized swelling, mass and lump, neck [ICD-10-CM] 09/16/2022 9:[address] [facility] Gross Description A. [id number] Received along with a corresponding pathology report from Pathology & Cytology Laboratory are 3 slide(s) labeled outside case: [id number] collected on 09/02/2022. 09/16/2022 9:[address] [facility] Note: A resident was involved in the service. I attest I examined the relevant preparations for the specimens and confirmed the diagnosis or interpretation. 09/16/2022 9:44 AM EST [facility] Tissue Lymph node specimen / Unknown 09/15/2022 11:12 AM EST 09/15/2022 11:12 AM EST us Joel Gamez MD LAB PATHOLOGY ORDERABLES Final [facility] [address] [place] [address] documented in this encounter Visit Diagnoses Diagnosis Localized swelling, mass and lump, neck Swelling, mass, or lump in head and neck documented in this encounter Care Teams Director Of Employee Development Relationship Specialty Start Date End Date System, Provider Not In, [address] [place] [address] PCP - General Family Medicine 09/07/22 09/22/22 Manjit Gorman MD [address] [place] [address] PCP - General 09/23/22 Olegario Juarez MD [address] [place] [address] [address] [place] [address] Consulting Physician Radiation Oncology 10/29/2207/05 documented as of this encounter
--- OUTSIDE RECORDS SUMMARY | 2024-07-27 06:58 | XMS_ITS | Encounter Summary ---
Author Organization Healthcare Address [address] [place] [address] Care Team Providers Care Smutter Name Role Phone Unavailable Primary Care Provider Unavailabl e Encounter Details Date Type Department Care Team (Latest Contact Info) Description 08/12/2022 - 08/12/2022 11:59 PM EST Hospital Encounter Image Record Center [address] [place] [address] Examination Discharge Disposition: Home or [...] Upcoming Encounters Date Type Department Care Team ([facility] Contact Info) Description 10/17/2024 8:00 AM EST Clinical Support Pav CC Head, Neck & Respiratory 800 [facility], [address]nd [place] [address] 10/17/2024 9:00 AM EST Appointment [facility] PET Scan [address] [place] [address] 10/17/2024 10:00 AM EST Appointment [facility] PET Scan [address] [place] [address] 10/17/2024 11:00 AM EST Office Visit Pav CC Head, Neck & Respiratory 800 [facility] 2[address] [place] [address] Juan Pablo Cee MD [address] [facility] [address] [place] [address] 10/17/2024 1:00 PM EST Clinical Support Pav CC Head, Neck & Respiratory [address] [address] 10/17/2024 2:20 PM EST Appointment [facility] Radiology [address] [place] [address] 10/20/2024 3:30 PM EST Office Visit Pav CC Head, Neck & Respiratory [address] [address] Germaine Alejandro MD 800 [facility] [address] [place] [address] documented as of this encounter Procedures Procedure Name Priority Date/Time Associated Diagnosis Comments CT SOFT TISSUE NECK W IV CONTRAST Routine 08/12/2022 12:00 AM EST Examination documented in this encounter Results * CT Soft Tissue Neck w IV Contrast (08/12/2022 12:00 AM EST) Narrative IMAGING - 09/19/2022 5:11 PM EST This study was performed at an outside facility and has been loaded into the PACS system for reference only. ??This order has been auto-finalized and does not contain a result. us Juan Pablo Cee MD IMG CT PROCEDURES Final Result IMAGING documented in this encounter Visit Diagnoses Diagnosis Examination Unspecified examination documented in this encounter
--- OUTSIDE RECORDS SUMMARY | 2024-07-27 06:58 | XMS_ITS | Continuity of Care Document ---
Author Organization SUSANA KAY [facility], [facility] - [facility] Address [address], [place] [address] Care Team Providers Care Weave Defect Charting Clerk Name Role Phone LALITA WILSON Primary Care [...] audio gram No observ ation record ed. [email or web address] Not Available 2023 15:01:41 Result Notes None recorded. 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 Procedures Surgical History Date Name Laterality Status Provider Name and Address Organization Details Recorded Time 08/27/20 Fiberoptic Laryngoscopy completed Liudmila Salinas MD [address], [place], [address], [place] [facility] [place] [facility] [place] 08/27/2022 10:45:50 07/29/20 Fiberoptic Laryngoscopy completed Bobby Marcelino [place] [facility] [place] [facility] [place] 07/29/2022 15:27:05 09/07/19 22 Radiation Therapy completed Staciesoraya Hernández [place] [facility] [place] 08/27/2022 08:59:19 09/07/19 21 Cancer Surgery completed Stacie Betty [place] [facility] [place] 08/27/2022 08:59:19 09/07/19 19 Other completed Stacie Betty [place] [facility] [place] 2022 16:31:05 09/07/18 89 vasectomy completed [place]acie Betty [place] [facility] [place] 07/29/2022 14:47:18 09/07/18 89 Other completed Stacie Betty [place] [facility] [place] 08/27/2022 08:59:19 09/07/18 58 tonsillectomy completed Stacie Betty [place] [facility] [place] 07/29/2022 14:47:31 09/07/18 58 Tonsillectomy/Angela noidectomy [place] Stacie Betty [place] [facility] [place] 08/27/2022 08:59:19 Imaging Results None recorded. Procedure [...] Tobacco Smoking Status Never Smoker Stacie Hernández [facility], [place] - [facility] - [place] & [place] 07/29/2022 14:46:49 Do You Have An Advance Directive? Yes Information not available 08/27/2022 What Is Your Level Of Alcohol Consumption? Occasional Information not available 08/27/2022 Are You Blind Or Do You Have Difficulty Seeing? No Information not available 08/27/2022 What Is Your Occupation? [email or web address] Information not available 09/09/2023 What Was The Date Of Your Most Recent Tobacco Screening? 09/08/2022 [email or web address] Information not available 04/11/2024 Are You Passively Exposed To Smoke? No Information no t available 2022 Do You Or Have You Ever Used Smokeless Tobacco? Never Used Smokeless Tobacco Information not available 2022 How Much Tobacco Do You Smoke? No Information not available 2022 Do You Feel Stressed (tense, Restless, Nervous, Or Anxious, Or Unable To Sleep At Night)? [id number] Information not available 08/27/2022 Do You Use Any Illicit Or Recreational Drugs? No Information not available 08/27/2022 How Many Years Have You Smoked Tobacco? Never 0 Information not available 04/11/2024 Sex: Male Functional [...] N Thyroid Problems N Developmental Delay N Depression N Glaucoma N Anemia N Immune System Disorder N Anesthesia Complications N Heart Attack ([place]) N Diabetes N Anxiety Disorder N Bleeding Disorder N Hearing Loss N Arthritis N Tuberculosis N Hyperlipidemia N Acid Reflux (GERD) N Cancer Y Stroke N Asthma N Sleep Disorder N GERD/Reflux N Heart Disease N Headaches N Fibromyalgia N Hypertension Y Speech Delay N Kidney Disease N Past Encounters Encounter ID Performer Location Encounter Start Date Encounter Closed Date Diagnosis/Indication Diagnosis SNOMED-CT Code Diagnosis ICD10 Code [id number] [facility] [address], [place] [address] 04/27/2024 14:09:59 04/27/2024 14:21:44 Sensorineural hearing loss 47996926 H90.3 [id number] [facility] [place] [facility] [address] [address] [place] [address] 05/25/2024 08:58:09 05/25/2024 09:10:36 Sensorineural hearing loss 93854188 H90.3 Health Concerns Section Related Observation LastModified by Organization Detai ls LastModified Time None Recorded Concern Status LastModified by Organization Details LastModified Time None Recorded Payers Encounter Date Sequence Insurance Name Policy Number Policy Phelps Covered Member ID Phelps Member ID Guarantor Name 05/25/2024 1 [employer] (MEDICARE REPLACEMENT/A DVANTAGE - PPO) Erick Sierra [id number] Erick Sierra Notes Date Note Type Note Provider Name and Address Organization Details Recorded Time 05/25/2024 text/html Patient was seen today for a hearing aid service. Cleaned and adjusted hearing aids this date. [facility] [address] , [place], [address], [facility] - [facility] - [facility] 05/25/2024 09:10:29
--- OUTSIDE RECORDS SUMMARY | 2024-07-27 06:58 | XMS_ITS | Encounter Summary ---
Author Organization [facility] Address [address] [place] [address] Care Team Providers Care Slurry Control Operator Helper Name Role Phone Manjit Gorman MD Primary Care Provider [phone] Encounter Details Date Type Department Care Team (Latest Contact Info) Description 09/23/2022 Travel Social History Tobacco Use Types Packs/Day [...] [address] [facility], 2nd [place] [address] 10/17/2024 9:00 AM EST Appointment [facility] PET Scan [address] [place] [address] 10/17/2024 10:00 AM EST Appointment [facility] PET Scan [address] [place] [address] 10/17/2024 11:00 AM EST Office Visit [facility] [address] [place] [address] Juan Pablo Cee MD [address] [facility] [address] [place] [address] 10/17/2024 1:00 PM EST Clinical Support [facility] [address] [facility], [address] [place] [address] 10/17/2024 2:20 PM EST Appointment [facility] [address] [place] [address] 10/20/2024 3:30 PM EST Office Visit [facility] [address] [address] Germaine Alejandro MD [address] [facility] [address] [address] [place] [address] documented as of this encounter Visit Diagnoses Not on filedocumented in this encounter Additional Health Concerns Assessment Noted Time A fall risk assessment has been complete d for the patient 09/23/2022 2:18 PM EST documented as of this encounter Care Teams Slurry Control Operator Helper Relationship Specialty Start Date End Date Manjit Gorman MD [address] [place] [address] PCP - General 09/23/22 documented as of this encounter
--- OUTSIDE RECORDS SUMMARY | 2024-07-27 06:58 | XMS_ITS | Encounter Summary ---
Author Organization [facility] Address [address] [id number] Care Team Providers Care Nurse Sitter Name Role Phone Manjit Gorman MD Primary Care Provider [phone] Reason for Visit * Imaging (Routine) - Closed Specialty Diagnoses / Procedures Referred By Contac t Referred To Contact Radiology Diagnoses Cancer of neck (CMS/HCC) Procedures PET/CT FDG Skull Base To Mid Thigh Joshua Cee MD [address] [facility] [address] [place] [address] Phone: tel: fax: Referral ID Status Reason Start Date Expiration Date Visits Re quested Visits Authorized [id number] Closed 09/23/2022 03/24/2024 2 2 Encounter Details Date Type Department Care Team (Latest Contact Info) Description 10/21/2022 8:32 AM EST - 10/21/2022 11:49 AM EST Hospital Encounter [facility] PET Scan [address] [place] [address] Discharge Disposition: Home or Self Care Social [...] Upcoming Encounters Date Type Department Care Team ([facility] Contact Info) Description 10/17/2024 8:00 AM EST Clinical Support [facility] [address] [address] 10/17/2024 9:00 AM EST Appointment [facility] PET Scan [address] [place] [address] 10/17/2024 10:00 AM EST Appointment [facility] PET Scan [address] [place] [address] 10/17/2024 11:00 AM EST Office Visit [facility] [address] [address] Joshua Cee MD [address] [facility] [address] [place] [address] 10/17/2024 1:00 PM EST Clinical Support [facility] [address] [address] 10/17/2024 2:20 PM EST Appointment [facility]iology [address] [place] [address] 10/20/2024 3:30 PM EST Office Visit [facility] [address] [address] Germaine Alejandro MD 800 [facility] [address] [place] [address] documented as of this encounter Procedures Procedure Name Priority Date/Time Associated Diagnosis Comments PET/CT FDG SKULL BASE TO MID THIGH Routine 10/21/2022 10:37 AM EST Cancer of neck (CMS/HCC) documented in this encounter Results * [...] thickening of the distal esophagus, most probably personnel representative of reflux esophagitis. Clinical correlation is [...] TO MID THIGH ordered by JOSHUA CEE, [id number] CLINICAL INDICATION: 72-year-old male with a new [...] scanner: Siemens Biograph 40 mCT. PET/CT acquisition: Mtqwux-py-vpl thighs, plus magnification (zoomed) neck. Standardized uptake value (SUV): Corrected for body weight only. CT: Low-dose, vfh-rzzqow-rgog, without intravenous contrast. TOTAL DLP (Dose Length [...] TO MID THIGH ordered by JOSHUA PEREIRA, [id number] CLINICAL INDICATION: 72-year-old male with a new [...] scanner: Siemens Biograph 40 mCT. PET/CT acquisition: Swhoqw-ll-cnb thighs, plus magnification (zoomed)neck. Standardized uptake value (SUV): Corrected for body weight only. CT: Low-dose, tse-xxlbsz-itze, without intravenous contrast. TOTAL DLP (Dose Length [...] circumferential thickening ofthe distal esophagus, most probably personnel representative of reflux esophagitis.Clinical correlation is recommended [...] Filemon Ley MD on 10/21/2022 2:17 PM us Joshua Cee MD IMG NM PROCEDURES Final Result documented in this encounter Visit Diagnoses Not on filedocumented in this encounter Additional Health Concerns Assessment Noted Time A fall risk assessment has been complete d for the patient 10/21/2022 1:08 PM EST documented as of this encounter Care Teams Nurse Sitter Relationship Specialty Start Date End Date Manjit Gorman MD [address] [place], [place] [phone] PCP - General 09/23/22 documented as of this encounter
--- OUTSIDE RECORDS SUMMARY | 2024-07-27 06:58 | XMS_ITS | Encounter Summary ---
Author Organization [facility] Address [address] [place], [place] [address] Care Team Providers Care Calculating Machine Mechanic Name Role Phone Manjit Gorman MD Primary Care Provider [phone] Reason for Referral * Imaging (Routine) - Closed Specialty Diagnoses / Procedures Referred By Terri del rosario Referred To Contact Radiology Diagnoses Cancer of neck (CMS/HCC) Procedures PET/CT FDG Skull Base To Mid Thigh Joshua Cee MD [address] [address] Phone: tel: fax: Referral ID Status Reason Start Date Expiration Date Visits Re quested Visits Authorized [id number] Closed 09/23/2022 03/24/2024 2 2 Reason for Visit * Imaging (Routine) - Closed Specialty Diagnoses / Procedures Referred By Terri del rosario Referred To Contact Radiology Diagnoses Cancer of neck (CMS/HCC) Procedures PET/CT FDG Skull Base To Mid Thigh Joshua Cee MD [address] [address] Phone: tel: fax: Referral ID Status Reason Start Date Expiration Date Visits Re quested Visits Authorized [id number] Closed 09/23/2022 03/24/2024 2 2 Encounter Details Date Type Department Care Team (Latest Contact Info) Description 10/21/2022 8:31 AM EST Hospital Encounter [facility] PET Scan [address] [place] [address] Cancer of neck (CMS/HCC) Discharge Disposition: Home [...] Neck & Respiratory 800 [facility] [address] [place] [address] 10/17/2024 9:00 AM EST Appointment [facility] PET Scan [address] [place] [address] 10/17/2024 10:00 AM EST Appointment [facility] PET Scan [address] [place] [address] 10/17/2024 11:00 AM EST Office Visit [facility] [address] [facility] [address] [place] [address] Joshua Cee MD [address] [facility] [address] [place] [address] 10/17/2024 1:00 PM EST Clinical Support [facility] 800 [facility], 2nd [place] [address] 10/17/2024 2:20 PM EST Appointment [facility]iology [address] [place] [address] 10/20/2024 3:30 PM EST Office Visit [facility] Respiratory [address] [facility], 2nd [place] [address] Germaine Alejandro MD [address] [facility] [address] [place] [address] documented as of this encounter Procedures Procedure [...] thickening of the distal esophagus, most probably manufacturing sales representative of reflux esophagitis. Clinical correlation is [...] TO MID THIGH ordered by JOSHUA CEE, [id number] CLINICAL INDICATION: 72-year-old male with a new [...] scanner: Siemens Biograph 40 mCT. PET/CT acquisition: Zuuzga-ts-tnw thighs, plus magnification (zoomed) neck. Standardized uptake value (SUV): Corrected for body weight only. CT: Low-dose, hjl-pirnee-dzxe, without intravenous contrast. TOTAL DLP (Dose Length [...] TO MID THIGH ordered by JOSHUA PEREIRA, [id number] CLINICAL INDICATION: 72-year-old male with a new [...] scanner: Siemens Biograph 40 mCT. PET/CT acquisition: Hrnhix-nq-art thighs, plus magnification (zoomed)neck. Standardized uptake value (SUV): Corrected for body weight only. CT: Low-dose, yee-ntcqkr-tdri, without intravenous contrast. TOTAL DLP (Dose Length [...] circumferential thickening ofthe distal esophagus, most probably manufacturing sales representative of reflux esophagitis.Clinical correlation is recommended to guide the need for any additionalworkup. 6. Mild hypermetabolism at the cutaneous surface of the leftpost-auricular region, for which direct visualization is recommended toexclude a suspicious cutaneous lesion. CRITICAL RESULT: No. COMMUNICATION: Per this written report. By electronically signing this report, I, the attending physician, attchitraat I have personally reviewed the images/data for [...] 10 millicurie, Intravenous, Once, 1 dose, On Thu10/21/22 at 0945, Routine, Imaging NM Protocol Orders Given 10/21/2022 9:15 AM EST 9.65 millicuries Right Antecubital documented in this encounter Additional Health Concerns Assessment Noted Time A fall risk assessment has been complete d for the patient 10/21/2022 1:08 PM EST documented as of this encounter Care Teams Calculating Machine Mechanic Relationship Specialty Start Date End Date Manjit Gorman MD [address] [place] [address] PCP - General 09/23/22 documented as of this encounter
--- OUTSIDE RECORDS SUMMARY | 2024-07-27 06:58 | XMS_ITS | Encounter Summary ---
Author Organization [facility] Address [address] [place] [address] Care Team Providers Care Extrusion Press Operator Name Role Phone Manjit Gorman MD Primary Care Provider [phone] Reason for Visit * Auth/Cert (Routine) Specialty Diagnoses / Procedures Referred By Contac t Referred To Contact Diagnoses neck mass Procedures OK LARYNGOSCOPY,DIRCT,OP SCOPE,BIOPSY LARYNGOSCOPY, DIRECT, WITH BIOPSY Juan Pablo Cee MD [address] [facility] [place] [address] Phone: tel: fax: [facility] [address] [place] [address] Phone: tel: Referral ID Status Reason Start Date Expiration Date Visits Re quested Visits Authorized [id number] 1 1 Encounter Details Date Type Department Care Team (Late st Contact Info) Description 10/09/2022 3:10 PM EST - 10/09/2022 4:20 PM EST Surgery [facility] [address] [place] [address] Juan Pablo Cee MD [address] [facility] [address] [place] [address] LARYNGOSCOPY, DIRECT, WITH BIOPSY [[id number] (CPT??)] Surgery Details Date/Time Status Location OR Service Patient Class Case Class Case Type Trauma Case? 10/09/2022 3:10 PM Posted NURA FRANCO [address] [place] [address] Outpatient Surgery E-Electiv e Panel 1 Procedure LRB Anes Op Region Wound Class Comments LARYNGOSCOPY, DIRECT, WITH BIOPSY N/A General Throat N/A Surgeon Surgeon Role Service Panel Juan Pablo Cee MD Primary ENT 1 Jason Mitchell MD Resident - Assisting ENT 1 documented in this encounter Social History Tobacco [...] Reading Time Taken Comments Blood Pressure 154/80 10/09/2022 2:06 PM EST Pulse 70 10/09/2022 2:06 PM EST Temperature 36.5 ??C (97.7 ??F) 10/09/2022 2:06 PM ES T Respiratory Rate 16 10/09/2022 2:06 PM EST Oxygen Saturation 99% 10/09/2022 2:06 PM EST Inhaled Oxygen Concentration - - [...] DAILY NEEDED FOR ED 04/15/2022 HYDROcodone-acet aminophen (Boykin) 5-325 MG tablet Take 1 tablet (5 [...] 15 10/09/22 1652 SpO2 98 % 10/09/22 165 Vitals shown include unvalidated device data. Anesthesia [...] procedure. Juan Pablo Cee MD MS FACS Pr Internship Head & Neck Oncology Rhinology & Skull [...] Upcoming Encounters Date Type Department Care Team ([facility] st Contact Info) Description 10/17/2024 8:00 AM EST Clinical Support [facility] [address] [address] 10/17/2024 9:00 AM EST Appointment [facility] PET Scan 800 [place] [address] 10/17/2024 10:00 AM EST Appointment [facility] PET Scan [address] [place] [address] 10/17/2024 11:00 AM EST Office Visit [facility] [address] [address] Juan Pablo Cee MD [address] [place] [address] 10/17/2024 1:00 PM EST Clinical Support [facility] [address] [address] 10/17/2024 2:20 PM EST Appointment [facility] Radiology [address] [place] [address] 10/20/2024 3:30 PM EST Office Visit [facility] Res[facility] [address] [address] Germaine Alejandro MD 800 [facility] [address] [place] [address] documented as of this encounter Procedures Procedure Name Priority Date/Time Associated Diagnosis Comments SURGICAL PATHOLOGY EXAM Routine 10/09/2022 3:59 PM EST Neck mass OK LARYNGOSCOPY,DIRCT, OP SCOPE,BIOPSY 10/09/2022 3:20 PM EST neck mass documented in this encounter Results * Surgical Pathology Exam (10/09/2022 3:59 PM EST) Case Report Surgical Pathology ?Case: [id number] ? Authorizing Provider: ??Juan Pablo Cee MD ? Collected: ? 10/09/2022 1559 ? Ordering Location: ? [facility] ? Received: ?10/09/2022 1655 ? Pathologist: ? Jennifer Sanz MD ? Specimen: ?Other (specify site), right base of tongue ? 3 10:26 AM EST [facility] Final Diagnosis A. 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 3 10:26 AM [facility] Clinical Information neck mass 3 10:26 AM [facility] Special and Immunohistochemical Stains IHC: A1-2 P16 - positive All controls show appropriate reactivity. All immunohistochemi stry, in situ hybridization, and histochemical tests were developed by and are performed at the [facility], [address] [place] [address]. All tests reported here, except those addressing [...] negativity on decalcified specimens. 3 10:26 AM [facility] Gross Description A. RIGHT BASE OF TONGUE Specimen is received in formalin labeled right base of tongue. Received are four nodules of soft, fleshy pink red tissue ranging from 0.4 up to 0.7 cm in greatest dimension. The specimen is entirely submitted in one cassette labeled A1. Saskia Kirkland Roberto 3 10:26 AM [facility] Note: A resident was involved in the service. I attest I examined the relevant preparations for the specimens and confirmed the diagnosis or interpretation. 3 10:26 AM [facility] Tissue Topography unknown / Unknown 10/09/2022 3:59 PM EST 10/09/2022 4:55 PM EST Comment:Pre-op diagnosis: neck mass us Juan Pablo Cee MD LAB PATHOLOGY ORDERABLES Final R esult [facility] [address] [place] [address] documented in this encounter Visit Diagnoses Not on filedocumented in this encounter Administered Medications Inactive Administered Medications - up to 3 most recent administrations Medication Order MAR Action Action Date Dose Rate Site acetaminophen (Tylenol) tablet 1,000 mg 1,000 mg, Oral, Once as needed, 1 dose, Starting on [facility] 10/09/22 at 1600, Until Ev 10/09/22 at 194, Routine, Recovery (Phase I only), pain score of >1 out of 10 fentaNYL (Sublimaze) injection 25 mcg 25 mcg, Intravenous, Every 5 min PRN, 2 doses, Starting on [facility] 10/09/22 at 1600, Until [facility] 10/09/22 at 194, Routine, Recovery (Phase I only), pain score of 3-4 out of 10 HYDROmorphone (Dilaudid) injection 0.5 mg 0.5 mg, Intravenous, Every 10 min PRN, 2 doses, Starting on [facility] 10/09/22 at 1600, Until [facility] 10/09/22 at 1940, Routine, Recovery (Phase I only), pain score of 9-10 out of 10 lactated Ringer's infusion 20 mL/hr, Intravenous, Continuous, Starting on [facility] 10/09/22 at 1415, Until [facility] 10/09/22 at 1940, Routine lidocaine (Xylocaine) 1 % injection 0.5 mL 0.5 mL, Injection, Once as needed, 1 dose, Starting on [facility] 10/09/22 at 1412, Until [facility] 10/09/22 at 1416, Routine, Holding - Preprocedure, If needed to start an IV. Given 10/09/2022 2:16 PM EST 0.5 mL naloxone (Narcan) injection 0.4 mg 0.4 mg, Intravenous, As needed, Starting on [facility] 10/09/22 at 1600, Until [facility] 10/09/22 at 1940, Routine, Recovery (Phase I only), respiratory depression ondansetron (Zofran) injection 4 mg 4 mg, Intravenous, Once as needed, 1 dose, Starting on [facility] 10/09/22 at 1600, Until Ev 10/09/22 at 194, Routine, Recovery (Phase I only), nausea, vomiting oxyCODONE (Roxicodone) immediate release tablet 10 mg 10 mg, Oral, Once as needed, 1 dose, Starting on [facility] 10/09/22 at 1600, Until [facility] 10/09/22 at 1941, Routine, Recovery (Phase I only), pain score of 6-8 out of 10 oxyCODONE (Roxicodone) immediate release tablet 5 mg 5 mg, Oral, Once as needed, 1 dose, Starting on Ev 10/09/22 at 1600, Until Ev 10/09/22 at 1941, Routine, Recovery (Phase I only), pain score of 3-5 out of 10 oxymetazoline (Afrin) 0.05 % nasal spray As needed, Starting on Ev 10/09/22 at 1553, Until Ev 10/09/22 at 1620, Routine, Intraprocedure Given 10/09/2022 3:53 PM EST 30 mL Oral sodium chloride 0.9 % flush 10 mL [...] 1415, Until Ev 10/09/22 at 194, Routine 1415 (Canceled Entry - Provider: Automatic [...] at 1941, Routine, Recovery (Phase I only), nausea, vomiting [...] documented as of this encounter Care Teams Extrusion Press Operator Relationship Specialty Start Date End Date Manjit Gorman MD [address] [place] [address] PCP - General 09/23/22 documented as of this encounter
== END 2024-07-26 23:59 | disposition home or self-care (01) ==
LOC: SC 07-27 06:48
PROVIDERS: Visit Provider Dermatology
DX: Z00.00 Encounter for general adult medical examination without abnormal findings (principal)